=== PATIENT | female | born 1960 | race Caucasian/White ===

== ENCOUNTER 2023-06-17 07:56 | Outpatient (OUT) | payer OTHER, SELFPAY ==
--- NOTE | 2023-06-17 08:25 | MM_ITS ---
Patient: JOCELYNE MATOS Exam Date: 06/17/2023 : 1960 Gender:F Ordering : DR Naif Stone . Admission #: [id number] Family : Order #: [id number] CLICK HERE TO VIEW EXAM RADIOLOGY REPORT PROCEDURE: MM TOMOSYNTHESIS SCREENING BI COMPARISON: MG MAMM SCREEN ZARI W CAD, 01/16/2020. MG MAMM SCREEN 3D ZARI CAD, 06/16/2022. INDICATIONS: Screening Calculator Name NCI Breast Cancer Risk Assessment Tool 5 Year Breast Cancer Risk 1.60% Lifetime Breast Cancer Risk 7.50% Personal Breast Cancer No Personal Ovarian Cancer No Treatments Excision Family Cancers None LOCATION: [facility] BREAST COMPOSITION: Scattered areas fibroglandular density. FINDINGS: DIAGNOSTIC CATEGORY 1--NEGATIVE. NO CHANGE FROM COMPARISON ASSESSMENT. Scattered benign-appearing calcifications are present. RIGHT BREAST: No significant suspicious finding. LEFT BREAST: No significant suspicious finding. RECOMMENDATIONS: ROUTINE MAMMOGRAM AND CLINICAL EVALUATION IN 12 MONTHS. PLEASE NOTE: A NORMAL MAMMOGRAM DOES NOT EXCLUDE THE POSSIBILITY OF BREAST CANCER. A CLINICALLY SUSPICIOUS PALPABLE LUMP SHOULD BE BIOPSIED. Dictated by: Jw Gaona MD on 06/17/2023 at 10:09 Approved by: Jw Gaona MD on 06/17/2023 at 10:10
== END 2023-06-17 07:57 | disposition home or self-care (01) ==
LOC: MAMMO 07:59
PROVIDERS: PCP Family Medicine; Visit Provider Family Medicine
DX: Z12.31 Encounter for screening mammogram for malignant neoplasm of breast (principal)
CPT/HCPCS: 77063; 77067

== ENCOUNTER 2023-08-07 06:35 | Outpatient (OUT) | payer OTHER, SELFPAY ==
[2023-08-07 07:09] LABS: Basophils Absolute Auto 0.1 10^3/uL (0.0-0.1); Basophils Percent Auto 1.7 % (0.2-2.0); Eosinophils Absolute Auto 0.3 10^3/uL (0.0-0.7); Eosinophils Percent Auto 7.6 % (0.9-7.0); Hematocrit 40.6 % (36.0-48.0); Hemoglobin 13.9 g/dL (12.0-16.0); Immature Granulocytes Abs Auto 0.01 10^3/uL (0.00-0.03); Immature Granulocytes Pct Auto 0.2 % (0.0-0.5); Lymphocytes Absolute Auto 1.9 10^3/uL (1.2-3.8); Lymphocytes Percent Auto 44.1 % (20.5-60.0); Mean Corpuscular HGB Conc 34.2 g/dL (29.9-35.2); Mean Corpuscular Hemoglobin 30.4 pg (26.7-34.0); Mean Corpuscular Volume 88.8 fL (81.0-99.0); Mean Platelet Volume 9.3 fL (9.5-13.5); Monocytes Absolute Auto 0.4 10^3/uL (0.3-0.8); Neutrophils Absolute Auto 1.5 10^3/uL (1.4-6.5); Neutrophils Percent Auto 36.4 % (43.0-75.0); Platelet Count 222 10^3/uL (150-450); Red Blood Count 4.57 10^6/uL (4.20-5.40); Red Cell Distribution Width 12.6 % (11.0-15.0); White Blood Count 4.2 10^3/uL (4.0-11.0)
[2023-08-07 07:14] LABS: Estimated Average Glucose 100 mg/dL; Glycohemoglobin A1C 5.1 % (4.5-6.2)
[2023-08-07 07:57] LABS: Alanine Aminotransferase 24 U/L (14-59); Albumin Globulin Ratio 1.1; Alkaline Phosphatase 91 U/L (46-116); Anion Gap 10.1; Aspartate Amino Transferase 19 U/L (15-37); BUN Creatinine Ratio 22.1; Bilirubin Total 0.5 mg/dL (0.2-1.0); Calcium 9.2 mg/dL (8.5-10.1); Chloride 102 mmol/L (98-107); Chol HDL Ratio 2.7; Cholesterol 208 mg/dL (<=200); Estimated GFR (African America >60 (>=60); Estimated GFR (Non-African Ame >60 (>=60); Free T3 2.56 pg/mL (2.18-3.98); Globulin 3.8 g/dL; Glucose 90 mg/dL (74-106); HDL Cholesterol 76 mg/dL (40-60); Potassium 4.1 mmol/L (3.5-5.1); Sodium 134 mmol/L (136-145); Thyroid Stimulating Hormone 0.863 uIU/mL (0.358-3.740); Total Protein 7.8 g/dL (6.4-8.2); Triglycerides 70 mg/dL (<=150)
[2023-08-07 08:04] LABS: Free T4 1.16 ng/dL (0.76-1.46)
== END 2023-08-07 06:36 | disposition home or self-care (01) ==
LOC: LAB 06:37
PROVIDERS: PCP Family Medicine; Visit Provider Family Medicine
DX: Z00.00 Encounter for general adult medical examination without abnormal findings (principal); Z79.899 Other long term (current) drug therapy; R73.9 Hyperglycemia, unspecified; R53.83 Other fatigue
CPT/HCPCS: 36415; 80053; 80061; 83036; 84439; 84443; 84481; 85025

== ENCOUNTER 2023-10-28 07:19 | Outpatient (OUT) | payer OTHER, SELFPAY ==
--- NOTE | 2023-10-28 | XR_ITS ---
The [address] [address] Patient Name: JOCELYNE MATOS MRN: [id number] date: 1960 Sex: F Assigned Patient Location: [facility] Current Patient Location: [facility] Accession/Order Number: [id number] Exam Date: 10/28/2023 07:35 Report Date: 10/28/2023 08:04 At the request of: PADDY HER Procedure: XR hip RT 2V w/ pelvis EXAM: AP of the pelvis and right hip HISTORY: . M25.551; Right hip pain . COMPARISON: None. TECHNIQUE: 3 views FINDINGS: Bony pelvis is intact. No fracture or bony destructive process is noted. Surgical clips are noted overlying the sacrum. No fracture or dislocation of the right hip is noted. Joint spaces well-maintained. Surrounding soft tissues are unremarkable. XR/XR hip RT 2V w/ pelvis IMPRESSION: 1. Negative AP of the pelvis. 2. Negative right hip. Electronically authenticated by: WALDO CABAN Date: 10/28/2023 08:04
== END 2023-10-28 07:20 | disposition home or self-care (01) ==
LOC: LAB 07:22 → RAD 07:25
PROVIDERS: PCP Family Medicine; Visit Provider Family Medicine
DX: R35.0 Frequency of micturition (principal); M25.551 Pain in right hip
CPT/HCPCS: 73502

== ENCOUNTER 2023-11-12 11:07 | Outpatient (REF) | payer OTHER, SELFPAY ==
[2023-11-12 11:39] LABS: SARS-CoV-2 Ag NEGATIVE (NEGATIVE)
[2023-11-12 16:11] LABS: SARS-CoV-2 NAA NOT DETECTED (NOT DETECTE)
== END 2023-11-12 11:08 | disposition home or self-care (01) ==
LOC: LAB 11:07
PROVIDERS: PCP Family Medicine; Visit Provider Family Medicine
DX: Z20.822 Contact with and (suspected) exposure to COVID-19 (principal)
CPT/HCPCS: 87635; 87811

== ENCOUNTER 2023-12-04 08:45 | Outpatient (OUT) | payer OTHER, SELFPAY ==
--- NOTE | 2023-12-04 08:49 | XR_ITS ---
The [address] [address] Patient Name: JOCELYNE MATOS MRN: [id number] date: 1960 Sex: F Assigned Patient Location: [facility] Current Patient Location: [facility] Accession/Order Number: [id number] Exam Date: 12/04/2023 08:58 Report Date: 12/04/2023 09:17 At the request of: PADDY HER Procedure: XR chest 2V EXAM: XR chest 2V HISTORY: Cough R05.9 COMPARISON: None. TECHNIQUE: PA and lateral views of the chest. FINDINGS: The cardiomediastinal silhouette is normal. Patchy airspace disease of the left lower lobe. There is no pneumothorax. No pleural effusion is noted. The osseous structures are intact. XR/XR chest 2V IMPRESSION: Patchy airspace disease at the left lower lobe. Electronically authenticated by: YOEL ADLER Date: 12/04/2023 09:17
--- OUTSIDE RECORDS SUMMARY | 2023-12-04 09:08 | XMS_ITS | CCD ---
Author Name Unknown Address [address] [place] [id number] Organization [facility] Care Team Providers Care Web Application Dev Specialist Name Role Phone UNKNOWN, PROVIDER Admitting Unavailable UNKNOWN, PROVIDER Attending Unavailable PADDY STONE Referring Unavailable SHIRLEYY, PADDY Primary Care Unavailable Jose A Petersen Unavailable ARDEN ., DR THOMASON Primary Care Unavailable HOY ., DR THOMASON Consulting Unavailable HOY ., DR THOMASON Attending Unavailable HOY ., DR THOMASON Admitting Unavailable ARMONK, DR WALDO Perkins Consulting Unavailable HOY ., DR THOMASON Admitting Unavailable HOY ., DR THOMASON Primary Care Unavailable HOY ., DR THOMASON Consulting Unavailable HOY ., DR THOMASON Attending Unavailable HOY ., DR THOMASON Admitting Unavailable HOY ., DR THOMASON Primary Care Unavailable HOY ., DR THOMASON Consulting Unavailable HOY ., DR THOMASON Attending Unavailable HOY ., DR THOMASON Admitting Unavailable HOY ., DR THOMASON Primary Care Unavailable HOY ., DR THOMASON Consulting Unavailable HOY ., DR THOMASON Attending Unavailable HOY ., DR THOMASON Primary Care Unavailable SHANNON ., DR MORALES Admitting Unavailable SHANNON ., DR MORALES Consulting Unavailable SHANNON ., DR MORALES Attending Unavailable ZIEBER, DR OWEN Penn Consulting Unavailable SHANNON ., DR MORALES Attending Unavailable HOY ., DR THOMASON Primary Care Unavailable SHANNON ., DR MORALES Admitting Unavailable SHANNON ., DR MORALES Consulting Unavailable HOY ., DR THOMASON Admitting Unavailable HOY ., DR THOMASON Primary Care Unavailable HOY ., DR THOMASON Attending Unavailable ADRIANA LITTLE Admitting Unavailable ADRIANA LITTLE Attending Unavailable HOY ., DR THOMASON Primary Care Unavailable Allergies Allergy Classification Reported Allergen(s) Allergy Type Date of Onset Reaction(s) Facility (3 sources) Acetaminophen / oxyCODONE Drug Allergy 10-19-20 14 [facility] Repository (1 source) Sulfamethoxazole / Trimethoprim Drug Allergy 05-17-20 19 [facility] Repository (2 sources) Acetaminophen / oxyCODONE Drug Allergy Unknown [facility] [employer] Other (4 sources) Latex Propensity to adverse reactions Unknown [employer] Other (2 sources) Sulfacetamide / Sulfur Drug Allergy Unknown [employer] Other (2 sources) Sulfamethoxazole / Trimethoprim Drug Allergy Unknown [facility] [employer] Other (2 sources) Codeine Drug Allergy 10-12-20 14 [facility] Repository (2 sources) Latex Drug allergy (disorder) 10-25-20 14 [facility] Repository (1 source) Sulfamethoxazole / Trimethoprim Drug Allergy 01-08-20 17 [facility] Repository (1 source) Sulfonamides (Antibiotic) Drug allergy (disorder) 01-08-20 17 [facility] Repository Problems Active Problems Problem Classification Problem Date Documented Da te Episodic/Chronic Abdominal pain (1 source) Right lower quadrant pain; Translations: [RIGHT LOWER QUADRANT PAIN] Onset: 04-08-2023 Episodic Joint disorders and dislocations; trauma-related (3 sources) Internal derangement of right knee; Translations: [Unspecified internal derangement of right knee] Onset: 08-22-2021 Resolved: 08-22-2021 Chronic Osteoarthritis (3 sources) Arthritis of right knee; Translations: [Unilateral primary osteoarthritis, right knee] Onset: 08-22-2021 Resolved: 08-22-2021 Chronic Unclassified (3 sources) CONTACT W/AND (SUSP) EXPOS COVID-19; Translations: [CONTACT W/AND (SUSP) EXPOS COVID-19] Onset: 10-27-2022 Urinary tract infections (4 sources) Urinary tract infection, site not specified; Translations: [UTI SITE NOT SPECIFIED] Onset: 04-02-2023 Episodic Past or Other Problems Problem Classification Problem Date Documented Da te Episodic/Chronic Gastrointestinal hemorrhage (2 sources) Melena; Translations: [Melena] Episodic Immunizations and screening for infectious disease (1 source) Encounter for screening for human papillomavirus (HPV); Translations: [ENC SCREENING HUMAN PAPILLOMAVIRUS] Onset: 05-29-2022 Episodic Other gastrointestinal disorders (2 sources) Diarrhea; Translations: [Diarrhea, unspecified] Episodic Other gastrointestinal disorders (2 sources) Constipation; Translations: [Constipation, unspecified] Episodic Other non-traumatic joint disorders (1 source) Pain in right knee; Translations: [Acute pain of right knee M25.561] Onset: 08-22-2021 Resolved: 08-22-2021 Episodic Other screening for suspected conditions (not mental disorders or infectious disease) (8 sources) Encounter for screening mammogram for malignant neoplasm of breast; Translations: [Encounter for screening for malignant neoplasm of cervix] Onset: 05-27-2022 Episodic Other upper respiratory infections (1 source) Acute recurrent frontal sinusitis; Translations: [ACUTE RECURRENT FRONTAL SINUSITIS] Onset: 10-27-2022 Episodic Unclassified (1 source) CONTACT W/AND (SUSP) EXPOS COVID-19; Translations: [CONTACT W/AND (SUSP) EXPOS COVID-19] Onset: 10-22-2022 Results Test Name Value Interpretation Reference Range Facility CREATININEon 04-02-2023 Creatinine [Mass/Vol] 0.80 mg/dL Normal 0.55-1.02 [facility] Comment on above: Performed By: #### L IPID, CMP, T7, TSH #### [facility] [address] [place] [address] Dr. Nga Ribeiro EGFR-AF LAO >60 Normal >=60 [place] Comment on above: Performed By: #### L IPID, CMP, T7, TSH #### [facility] [address] [address] [address] Nga Ribeiro EGFR-NON AF LAO >60 Normal >=60 [facility] Comment on above: Performed By: #### L IPID, CMP, T7, TSH #### [facility] [address] ABD/PELV W CONon 04-02-20 CT ABD/PELV W CON EXAMINATION: CT ABD/PELV W CON, 04/02/2023 7:53 AM EDT HISTORY: Urinary tract infectious disease , pelvic pressure, right lower quadrant pain COMPARISON: None. TECHNIQUE: CT scan of the abdomen and pelvis was performed with IV contrast. CT dose reduction technique was used, including Automated Exposure Control. FINDINGS: LUNG BASES: No visible pulmonary or pleural disease. LIVER: No enlargement, atrophy, abnormal density, or significant focal lesion. BILIARY: Surgical clips from cholecystectomy PANCREAS: No lesion, fluid collection, ductal dilatation, or atrophy. SPLEEN: No enlargement or focal lesion. ADRENALS: No mass or enlargement. KIDNEYS: No mass, obstruction, or calcification. BOWEL/MESENTERY: Moderate amount of stool in the colon. Overall nonobstructive bowel gas pattern. AORTA/VASCULAR: No aortic aneurysm or dissection. Mild atherosclerosis RETROPERITONEUM: No mass or adenopathy. LYMPH NODES: No adenopathy. URINARY BLADDER: No visible focal wall thickening, lesion, or calculus. PELVIC ORGANS: Hysterectomy ABDOMINAL WALL: No mass or hernia. BONES: No bony lesion or fracture. OTHER: Negative. IMPRESSION: No acute intraperitoneal abnormality Moderate amount of stool Electronically authenticated by: WALDO BUSTAMANTE Date: 2023-04-02 15:30 Normal [facility] OCC BLD IMMUNO SCREENon OCCULT BLOOD Negative Normal NEGATIVE [facility] Comment on above: Performed By: #### O BSCRN #### [facility] [address] [place] [address] Dr. Nga Ribeiro INSULINon 10-31-2022 Insulin 8.8 uIU/mL Normal 2.6-24.9 [facility] Comment on above: Performed By: #### L IPID, CMP, T7, TSH #### [facility] [address] [place] [address] Dr. Nga Ribeiro CBC AUTO DIFFon 10-30-2022 BASO # 0.1 103/ul Normal 0.0-0.1 [facility] Comment on above: Performed By: #### L IPID, CMP, T7, TSH #### [facility] [address] [place] [address] Dr. Nga Ribeiro Basophils/100 WBC (Bld) 1.4 % Normal 0.2-2.0 [facility] Comment on above: Performed By: #### L IPID, CMP, T7, TSH #### [facility] [address] [place] [address] Dr. Nga Ribeiro EO # 0.3 103/ul Normal 0.0-0.7 [facility] Comment on above: Performed By: #### L IPID, CMP, T7, TSH #### [facility] [address] [address] [address] Nga Ribeiro Eosinophils/100 WBC (Bld) 6.3 % Normal 0.9-7.0 [facility] Comment on above: Performed By: #### L IPID, CMP, T7, TSH #### [facility] [address] [address] [address] Nga Ribeiro Erythrocyte distribution width (RBC) [Ratio] 12.7 % Normal 11.0-15.0 [facility] Comment on above: Performed By: #### L IPID, CMP, T7, TSH #### [facility] [address] [address] [address] Nga Ribeiro Hematocrit (Bld) [Volume fraction] 40.4 % Normal 36.0-48.0 [facility] Comment on above: Performed By: #### L IPID, CMP, T7, TSH #### [facility] [address] [place] [address] Dr. Nga Ribeiro Hemoglobin (Bld) [Mass/Vol] 13.8 g/dL Normal 12.0-16.0 [facility] Comment on above: Performed By: #### L IPID, CMP, T7, TSH #### [facility] [address] [address] [address] Nga Ribeiro IG # 0.01 10e3/ul Normal 0.00-0.03 [facility] Comment on above: Performed By: #### L IPID, CMP, T7, TSH #### [facility] [address] [address] [address] Nga Ribeiro IG % 0.2 % Normal 0.0-0.5 [facility] Comment on above: Performed By: #### L IPID, CMP, T7, TSH #### [facility] [address] [place] [address] Dr. Nga Ribeiro LYMPH # 1.9 103/ul Normal 1.2-3.8 [facility] Comment on above: Performed By: #### L IPID, CMP, T7, TSH #### [facility] [address] [place] [address] Dr. Nga Ribeiro Lymphocytes/100 WBC (Bld) 46.4 % Normal 20.5-60.0 [facility] Comment on above: Performed By: #### L IPID, CMP, T7, TSH #### [facility] [address] [place] [address] Dr. Nga Ribeiro MANUAL DIFF REQ NO Normal [facility] Comment on above: Performed By: #### L IPID, CMP, T7, TSH #### [facility] [address] [place] [address] Dr. Nga Ribeiro MCH (RBC) [Entitic mass] 30.6 pg Normal 26.7-34.0 [facility] Comment on above: Performed By: #### L IPID, CMP, T7, TSH #### [facility] [address] [place] [address] Dr. Nga Ribeiro MCHC (RBC) [Mass/Vol] 34.2 g/dL Normal 29.9-35.2 [facility] Comment on above: Performed By: #### L IPID, CMP, T7, TSH #### [facility] [address] [place] [address] Dr. Nga Ribeiro MCV (RBC) [Entitic vol] 89.6 fL Normal 81.0-99.0 [facility] Comment on above: Performed By: #### L IPID, CMP, T7, TSH #### [facility] [address] [place] [address] Dr. Nga Ribeiro MONO # 0.4 103/ul Normal 0.3-0.8 [facility] Comment on above: Performed By: #### L IPID, CMP, T7, TSH #### [facility] [address] [place] [address] Dr. Nga Ribeiro Monocytes/100 WBC (Bld) 9.1 % Normal 1.7-12.0 [facility] Comment on above: Performed By: #### L IPID, CMP, T7, TSH #### [facility] [address] [place] [address] Dr. Nga Ribeiro NEUT # 1.5 103/ul Normal 1.4-6.5 [facility] Comment on above: Performed By: #### L IPID, CMP, T7, TSH #### [facility] [address] [place] [address] Dr. Nga Ribeiro Neutrophils/100 WBC (Bld) 36.6 % Critically low 43.0-75.0 [facility] Comment on above: Performed By: #### L IPID, CMP, T7, TSH #### [facility] [address] [place] [address] Dr. Nga Ribeiro Platelet mean volume (Bld) [Entitic vol] 9.2 fL Critically low 9.5-13.5 [facility] Comment on above: Performed By: #### L IPID, CMP, T7, TSH #### [facility] [address] [place] [address] Dr. Nga Ribeiro PLT 194 103/ul Normal 150-450 [facility] Comment on above: Performed By: #### L IPID, CMP, T7, TSH #### [facility] [address] [place] [address] Dr. Nga Ribeiro RBC 4.51 106/ul Normal 4.20-5.40 [facility] Comment on above: Performed By: #### L IPID, CMP, T7, TSH #### [facility] [address] [place] [address] Dr. Nga Ribeiro WBC 4.2 103/ul Normal 4.0-11.0 [facility] Comment on above: Performed By: #### L IPID, CMP, T7, TSH #### [facility] [address] [place] [address] Dr. Nga Ribeiro FREE THYROXINE INDEX T7on FTI 2.66 Normal 1.30-4.50 [facility] Comment on above: Performed By: #### L IPID, CMP, T7, TSH #### [facility] [address] [place] [address] Dr. Nga Ribeiro T3U 36.0 % Normal 30.0-39.0 [facility] Comment on above: Performed By: #### L IPID, CMP, T7, TSH #### [facility] [address] [address] [address] Nga Ribeiro T4 [Mass/Vol] 7.40 ug/dL Normal 4.80-13.90 [facility] Comment on above: Performed By: #### L IPID, CMP, T7, TSH #### [facility] [address] [address] [address] Nga Ribeiro GLYCOHEMOGLOBIN A1Con 2021 ADA RECOMMENDATION SEE BELOW Normal [facility] Comment on above: Result Comment: ADA RECOMMENDED LIMIT 4.0 - 6.0 ADA THERAPEUTIC TARGET < 7.0 ACTION SUGGESTED > 7.0 Performed By: #### A 1C #### [facility] [address] [address] [address] Nga Ribeiro Glucose [Mass/Vol] 94 mg/dL Normal [facility] [place] [facility] Comment on above: Performed By: #### A 1C #### [facility] [address] [address] [address] Nga Ribeiro HbA1c (Bld) [Mass fraction] 4.9 % Normal 4.5-6.2 [facility] Comment on above: Performed By: #### A 1C #### [facility] [address] [address] [address] Nga Ribeiro IRONon 10-30-2022 Iron [Mass/Vol] 119.0 ug/dL Normal 50.0-170.0 [place] Comment on above: Performed By: #### I CHARISMA #### [facility] [address] [address] [address] Nga Ribeiro LIPID PROFILEon 10-30-2022 CHOL-HDL RATIO NORM SEE BELOW Normal [facility] Comment on above: Result Comment: 3.3 - 4.4 LOW RISK 4.4 - 7.1 AVERAGE RISK 7.1 - 11.0 MODERATE RISK >11.0 HIGH RISK Performed By: #### L IPID, CMP, T7, TSH #### [facility] [address] [address] [address] Nga Ribeiro Cholesterol [Mass/Vol] 201 mg/dL Critically high <=200 [facility] Comment on above: Performed By: #### L IPID, CMP, T7, TSH #### [facility] [address] [address] [address] Nga Ribeiro Cholesterol in HDL [Mass/Vol] 78 mg/dL Critically high 40-60 [facility] Comment on above: Performed By: #### L IPID, CMP, T7, TSH #### [facility] [address] [address] [address] Nga Ribeiro Cholesterol in LDL [Mass/Vol] 108.8 mg/dL Normal [facility] Comment on above: Performed By: #### L IPID, CMP, T7, TSH #### [facility] [address] [address] [address] Nga Ribeiro Cholesterol.total/Ch olesterol in HDL [Mass ratio] 2.6 {ratio} Normal [facility] Comment on above: Performed By: #### L IPID, CMP, T7, TSH #### [facility] [address] [address] [address] Nga Ribeiro HDL NORMAL > or = 60 mg/dl - LO W CARDIOVASCULAR RISK <40 mg/dl - HIGH CARDIOVASCULAR RISK Normal [facility] Comment on above: Performed By: #### L IPID, CMP, T7, TSH #### [facility] [address] [address] [address] Nga Ribeiro LDL CALC NORMAL SEE BELOW Normal [facility] Comment on above: Result Comment: <100 mg/dl OPTIMAL 100 - 129 mg/dl NEAR OR ABOVE OPTIMAL 130 - 159 mg/dl BORDERLINE HIGH 160 - 189 mg/dl HIGH >190 mg/dl VERY HIGH Performed By: #### L IPID, CMP, T7, TSH #### [facility] [address] [address] [address] Nga Ribeiro Triglyceride [Mass/Vol] 71 mg/dL Normal <=150 [facility] Comment on above: Performed By: #### L IPID, CMP, T7, TSH #### [facility] [address] [address] [address] Nga Ribeiro VLDL CALC 14.2 mg/dL Normal [facility] Comment on above: Performed By: #### L IPID, CMP, T7, TSH #### [facility] [address] [address] [address] Nga Ribeiro PROF 14(COMP METB)on 022 Albumin [Mass/Vol] 3.8 g/dL Normal 3.4-5.0 [facility] Comment on above: Performed By: #### L IPID, CMP, T7, TSH #### [facility] [address] [address] [address] Nga Riebiro Albumin/Globulin [Mass ratio] 1.1 {ratio} Normal [facility] Comment on above: Performed By: #### L IPID, CMP, T7, TSH #### [facility] [address] [place] [address] Dr. Nga Ribeiro ALP [Catalytic activity/Vol] 91 U/L Normal 46-116 [facility] Comment on above: Performed By: #### L IPID, CMP, T7, TSH #### [facility] [address] [place] [address] Dr. Nga Ribeiro ALT [Catalytic activity/Vol] 19 U/L Normal 14-59 [facility] Comment on above: Performed By: #### L IPID, CMP, T7, TSH #### [facility] [address] [address] [address] Nga Ribeiro Anion gap [Moles/Vol] 9.2 mmol/L Normal [facility] Comment on above: Performed By: #### L IPID, CMP, T7, TSH #### [facility] [address] [address] [address] Nga Ribeiro AST [Catalytic activity/Vol] 18 U/L Normal 15-37 [facility] Comment on above: Performed By: #### L IPID, CMP, T7, TSH #### [facility] [address] [place] [address] Dr. Nga Ribeiro Bilirubin [Mass/Vol] 0.5 mg/dL Normal 0.2-1.0 [facility] Comment on above: Performed By: #### L IPID, CMP, T7, TSH #### [facility] [address] [place] [address] Dr. Nga Ribeiro Calcium [Mass/Vol] 9.5 mg/dL Normal 8.5-10.1 [facility] Comment on above: Performed By: #### L IPID, CMP, T7, TSH #### [facility] [address] [place] [address] Dr. Nga Ribeiro Chloride [Moles/Vol] 105 mmol/L Normal 98-107 [facility] Comment on above: Performed By: #### L IPID, CMP, T7, TSH #### [facility] [address] [place] [address] Dr. Nga Ribeiro CO2 [Moles/Vol] 29.5 mmol/L Normal 21.0-32.0 [place] Comment on above: Performed By: #### L IPID, CMP, T7, TSH #### [facility] [address] [place] [address] Dr. Nga Ribeiro Creatinine [Mass/Vol] 0.68 mg/dL Normal 0.55-1.02 [facility] Comment on above: Performed By: #### L IPID, CMP, T7, TSH #### [facility] [address] [place] [address] Dr. Nga Ribeiro EGFR-AF LAO >60 Normal >=60 [facility] Comment on above: Performed By: #### L IPID, CMP, T7, TSH #### [facility] [address] [place] [address] Dr. Nga Ribeiro EGFR-NON AF LAO >60 Normal >=60 [facility] Comment on above: Performed By: #### L IPID, CMP, T7, TSH #### [facility] [address] [place] [address] Dr. Nga Ribeiro Globulin (S) [Mass/Vol] 3.6 g/dL Normal [facility] Comment on above: Performed By: #### L IPID, CMP, T7, TSH #### [facility] [address] [address] [address] Nga Ribeiro Glucose [Mass/Vol] 100 mg/dL Normal 74-106 [facility] [place] [facility] Comment on above: Performed By: #### L IPID, CMP, T7, TSH #### [facility] [address] [place] [address] Dr. Nga Ribeiro Potassium [Moles/Vol] 4.7 mmol/L Normal 3.5-5.1 [facility] Comment on above: Performed By: #### L IPID, CMP, T7, TSH #### [facility] [address] [place] [address] Dr. Nga Ribeiro Protein [Mass/Vol] 7.4 g/dL Normal 6.4-8.2 [facility] [place] [facility] Comment on above: Performed By: #### L IPID, CMP, T7, TSH #### [facility] [address] [place] [address] Dr. Nga Ribeiro Sodium [Moles/Vol] 139 mmol/L Normal 136-145 [facility] [place] [facility] Comment on above: Performed By: #### L IPID, CMP, T7, TSH #### [facility] [address] [place] [address] Dr. Nga Ribeiro Urea nitrogen [Mass/Vol] 19.0 mg/dL Critically high 7.0-18.0 [facility] Comment on above: Performed By: #### L IPID, CMP, T7, TSH #### [facility] [address] [place] [address] Dr. Nga Ribeiro Urea nitrogen/Creatinine [Mass ratio] 27.9 mg/mg Normal [facility] Comment on above: Performed By: #### L IPID, CMP, T7, TSH #### [facility] [address] [place] [address] Dr. Nga Ribeiro TSHon 10-30-2022 TSH 0.871 uIU/mL Normal 0.358-3.740 [facility] Comment on above: Performed By: #### L IPID, CMP, T7, TSH #### [facility] [address] [place] [address] Dr. Nga Ribeiro Covid-19 PCR (CVDTB)on 10-01 SARS-CoV-2 (COVID-19) RNA VALENTINA+probe Ql (Unsp spec) Not detected Normal NOT DETECTED [facility] Comment on above: Result Comment: When diagnostic testing is negative, the possibility of a false negative should be considered in the context of a patient's recent exposures and the presence of clinical signs and symptoms consistent with SARS-CoV-2. This test is not yet approved or cleared by the [place] FDA. When there are no FDA-approved or cleared tests available, and other criteria are met, FDA can make tests available under an emergency access mechanism called an Emergency Use Authorization (EUA). The EUA for this test is supported by the Fire Extinguisher Repairer Inspector of Health and Human Service's declaration that circumstances exist to justify the emergency use of in vitro diagnostics for the detection and/or diagnosis of the virus that causes COVID-19. This EUA will remain in effect for the duration of the COVID-19 declaration justifying emergency of IVDs, unless it is terminated or revoked by the FDA (after which the test may no longer be used). Performed By: #### C VDTBH #### [facility] [address] [place] [address] Dr. Nga Ribeiro INFLUENZA A AND B AGon 10-22 INFLUANEGH SEE BELOW Normal [facility] Comment on above: Result Comment: Nega tive for Flu A protein angiten. Infection due to Flu A cannot be ruled out. Flu A angiten in the sample may be below the detection limit of the test. Performed By: #### L IPID, CMP, T7, TSH #### [facility] [address] [place] [address] Dr. Nga Ribeiro INFLUBNEG SEE BELOW Normal [facility] Comment on above: Result Comment: Nega tive for Flu B protein antigen. Infection due to Flu B cannot be ruled out. Flu B antigen in the sample may be below the detection limit of the test. Performed By: #### L IPID, CMP, T7, TSH #### [facility] [address] [place] [address] Dr. Nga Ribeiro INFLUENZA A AG Negative Normal NEGATIVE SEE COMMENT [facility] Comment on above: Performed By: #### L IPID, CMP, T7, TSH #### [facility] [address] [place], [place] [address] Dr. Nga Ribeiro INFLUENZA B AG Negative Normal NEGATIVE SEE COMMENT [facility] Comment on above: Performed By: #### L IPID, CMP, T7, TSH #### [facility] [address] [place], [place] [address] Dr. Nga Ribeiro INTERNAL CONTROLS Within Normal Limits Normal Wi thin Normal Limits [facility] Comment on above: Performed By: #### L IPID, CMP, T7, TSH #### [facility] [address] [place], [place] [address] Dr. Nga Ribeiro MRI Shoulder w/o Lefton 11-0 MRI Shoulder w/o Left HISTORY: Left shoulder pain with popping, possible lifting injury. TECHNIQUE: Routine non-contrast MRI of the left shoulder COMPARISON: Radiographs 09/16/2022. RESULT: Rotator Cuff Tendons: Mild to moderate tendinosis involving infraspinatus with reactive cystic change at the insertion, without tear. Mild tendinosis involving supraspinatus and subscapularis without tear. Teres minor appears intact. Long Head Biceps Tendon: Intact with appropriate location. Muscle: Muscle bulk and signal intensity are within normal limits. Labrum: Appears grossly intact. Bones and Marrow: No evidence of fracture or bone marrow replacing process. Glenohumeral Joint: Osteophytes without distinct measurable full-thickness chondral defect. No joint effusion. Acromioclavicular Joint: Mild to moderate degenerative changes with undersurface osteophytes. Downsloping of the acromion. Other: No other significant abnormality. IMPRESSION: Rotator cuff tendinosis without tear. Report reported and signed by Maulik Stewart on 10/02/2022 1335 Normal [facility] Supervisor Char House MG MAMM SCREEN 3D ZARI CADon 06-16-2022 MG MAMM SCREEN 3D ZARI CAD Patient: CONY MATOS Exam Date: 06/16/2022 : 1960 Gender:F Ordering : DR ANDREW ORTEGA . Admission #: [id number] Family : Order #: [id number] CLICK HERE TO VIEW EXAM RADIOLOGY REPORT PROCEDURE: MAMMOGRAM SCREENING 3D BILATERAL CAD COMPARISON: MG MAMM SCREEN ZARI W CAD, 11/01/2018. MG MAMM SCREEN ZARI W CAD, 07/17/2017. DIGITIZED_MAMMO, 12/29/2008. MG MAMM SCREEN ZARI W CAD, 01/16/2020. INDICATIONS: Screening mammography Calculator Name NCI Breast Cancer Risk Assessment Tool 5 Year Breast Cancer Risk 1.50% Lifetime Breast Cancer Risk 7.70% Personal Breast Cancer No Personal Ovarian Cancer No Treatments Excision Family Cancers None LOCATION: [facility] BREAST COMPOSITION: Scattered areas fibroglandular density. FINDINGS: DIAGNOSTIC CATEGORY 1--NEGATIVE. RIGHT BREAST: No significant suspicious finding. No significant change has occurred. LEFT BREAST: No significant suspicious finding. No significant change has occurred. RECOMMENDATIONS: ROUTINE MAMMOGRAM AND CLINICAL EVALUATION IN 12 MONTHS. PLEASE NOTE: A NORMAL MAMMOGRAM DOES NOT EXCLUDE THE POSSIBILITY OF BREAST CANCER. A CLINICALLY SUSPICIOUS PALPABLE LUMP SHOULD BE BIOPSIED. Dictated by: Owen Nixon M.D. on 06/16/2022 at 13:27 Approved by: Owen Nixon M.D. on 06/16/2022 at 13:28 Normal [facility] PAP ACOG PANEL 2: 30 to 65on 05-30-2022 . . Normal [facility] Comment on above: Result Comment: Perf ormed at: WB Performed By: #### L IPID, CMP, T7, TSH #### [facility] [address] [place] [address] [address] Nga Ribeiro Age Gdln ACOG Testing 30-65 Normal [facility] Comment on above: Performed By: #### L IPID, CMP, T7, TSH #### [facility] [address] [place], [place] [address] Dr. Nga Ribeiro DIAGNOSIS: Comment Normal [facility] Comment on above: Result Comment: UNSA TISFACTORY FOR EVALUATION. Performed at: WB Performed By: #### L IPID, CMP, T7, TSH #### [facility] [address] [place], [place] [address] Dr. Nga Ribeiro HPV Aptima Negative Normal Negative [facility] Comment on above: Result Comment: This nucleic acid amplification test detects fourteen high-risk HPV types (16,18,31,33,35,39,45,51,52,56,58,59,66,68) without differentiation. Performed at: =G Performed By: #### L IPID, CMP, T7, TSH #### [facility] [address] [place] [address] [address] Nga Ribeiro Methodology: Comment Normal [facility] Comment on above: Result Comment: This liquid based ThinPrep(R) pap test was screened with the use of an image guided system. Performed at: WB Performed By: #### L IPID, CMP, T7, TSH #### [facility] [address] [place] [address] [address] Nga Ribeiro Note: Comment Normal [facility] Comment on above: Result Comment: The Pap smear is a screening test designed to aid in the detection of premalignant and malignant conditions of the uterine cervix. It is not a diagnostic procedure and should not be used as the sole means of detecting cervical cancer. Both false-positive and false-negative reports do occur. . Performed at: WB Performed By: #### L IPID, CMP, T7, TSH #### [facility] [address] [place] [address] [address] Nga Ribeiro Performed by: Comment Normal [facility] Comment on above: Result Comment: Kolton Carpio, Wet End Tester (ASCP) Performed at: WB Performed By: #### L IPID, CMP, T7, TSH #### [facility] [address] [place] [address] [address] Nga Ribeiro QC reviewed by: Comment Normal [facility] Comment on above: Result Comment: Adore Sloan, Supervisory Wet End Tester (ASCP) Performed at: WB Performed By: #### L IPID, CMP, T7, TSH #### [facility] [address] [place] [address] [address] Nga Ribeiro Recommendation: Comment Normal [facility] Comment on above: Result Comment: Sugg est follow up as clinically appropriate. Performed at: WB Performed By: #### L IPID, CMP, T7, TSH #### [facility] [address] [place] [address] [address] Nga Ribeiro Specimen adequacy: Comment Normal [facility] [place] [facility] Comment on above: Result Comment: Spec imen processed and examined but unsatisfactory for evaluation of epithelial abnormality because of insufficient cellularity. Performed at: WB Performed By: #### L IPID, CMP, T7, TSH #### [facility] [address] [place] [address] [id number] [address]ga Ribeiro Coding Summary.on 12-30-2021 Coding Summary. CD:[id number] Gh 0bWw+PGhlYWQ+LR8LMLVnF 61vmCZriD7JW4rCPD8VCSD VEBFCGS0UZN7icKN4RXndM 2VybiAv GcuasFYgQQ84IUy4GUQ5rO doYHjdlD7gzVVpJ5w1WuVd FQ48zG14TKtaJLPpWtV1Md ZpbjsgbWFy D1egMmDhuSQtEku+PHRhYm xlIHdpZHRoPScxMDAlJyBz zKwjAV9nGo4hWKIvUJJzuV xhcHNlOiBj m5hbYSCzEHcpWP8gmTzwZ8 AcjAZ5KGUoh5l3Zi91nMW+ QHPcBGQ8pRcyWHqwg668Yj Nka2dfNNA3 zFBaPHqwESZ1S20oi1T5RJ LwZZBaEHY8mXN6dC4nhHmf jlfxT3KhlAGkIxH1OMH6cD HqpY1vfXfy qczedX4oEqb+Q33CHL2FHX LAJM0LXlt0P6XlNsggoUV+ TG14JSLcCS88dJDuqXOaz8 svcUl1WoOa MGVuSKB2xHciUZwdc7GmJR AuE88roDUug0U0IMKhgEpf nNMuWfQxgRQ3pT3eGOryyu wua5jwewrp Yengj2xbcc84aI39Q38cKM tiQELtWMO6MBFrEEOqnLxe ey5dgR1aXq3+ARinf4dxd6 duzVf2XgXy SMSifmBnvIxzZQU6g7ZlUs 41W7DbhOdcc4UnCbs6iv88 vLWwt7Z1xMP1RRgoHQYuiH 5aQOeeIsZ5 IAYcJcUlrK37hKBoIKrqYb 7avDntuXffLO9qUPOuumzp VNHngZ1qGDVvySWucDfiJU 4wNTBpbjtm v667BxDjOJX0SXYdoGBxF3 VrvZ4wMmYrBVAvEICpU2Xa eTAiYOouQ684TLhvFeY3FN IxvkYqA3Nv KJIgzWueZbA5c8L2Jy4Xq4 RmzvyvZHX5ORwpSWOyDyDa TdHmBzM9G2ToUvu1WJUyrT yrJL3xR0Jy WKVxsockrnzerVU9GRNsHC SmcQ93gIAfZZscAf0yj0L3 o939PBLkSDXmzJ74Pe9anN ogMTBwdCBU gD4yusyyq8dzivbzKvSdWM XaMUc5OSy5UIBqsIvuRnSq RMF2DwL1YII0zLUehQ5ifQ ulmpqmbA8c Oyc+M30laL3aIAY4FIU6lq nsIEFkloEgSV61QJ84P7Xd PjwvdGFibGU+PGRpdiBzdH bzGF9vHzMv e7xbs0QmTOvbV7NzMCVqVE joXcn5DIHoBCT4eCD3dE0h GWPsRSbzj7I8dSZ8Y4Corv Ukfm9xf1yc MWHtHOjnR60puVPux8U5QO SkzFS9BLNrnAyyBpWcnD88 Oyc+CLUvlPqbw6DwDpwbg2 cmd0zalBm1 MnDjVCGiwvBqpFlxOCQ7l6 BfMl74N91dEXzaPHGeYJXd VQOeFFWcbImiag3eiG5bBd 8+PGNvbCB3 qFQ7qZ7eOFZdTdC9CVtuO7 12BhZbzHUwHeeuh3pro7oi cNo1HaCwYAVzfwApaExbPW S6r2VhIv77 B15hHWgzLORdAIVdZKNsZK BtfUskwt5suR3qUv1+PC9j p7rwch28hM74qTB+PHRkIH R3bTgyENkw WTLryA3eLYggMfY5IPOuPt LoeR67qDPxJZahXm1qwBji pCwjZE4dZZSwkpmlx611Xl Eqa9muILKx hLJdQDvxQMY7O73hx1C5AA MtRRInYZE0dHJ4pO3hbMwo bjogbGVmdDsgdmVydGljYW npOUjaD453 IHRvcDsnPlBhdGllbnQgTm XzWHg0Y4RcZlp2YDDcqWty TV8vvPFmBLyjRz1noReayF flFO5hWCVm phbkj006FbMcv7fuGTXdfR DjSVetAPB3T47yc5Z5EFKw PEXvDGW9nIN2aD8azRjftv ogbGVmdDsg deZmcOzcIXywCEkeB231TN RvcDsnPkJpcnRoIERhdGU6 EJ65KX19tCHqu7E7vZL4K7 BhZGRpbmct xrzolRB3CBQpJDQyiS65Hd 0uuOroIp5eLPLrJNI8EKUr nZHrB2AllI0nScZoCRRqPU SvT2SklUFc NWrgY249BOljIrN8HPEanl SgP8PtKGSthKleNiF6j6I9 Oi2NS7E2LX33LW83uZDih1 X8eJG6I9Sh SFUfkdoakgstrPJ3PMJhXV OpbB20Gb7agOnyXi7yNDBb NOZ5BZBfyDIhS8ZizP2zJj AjMDAwMDAw Q7EiqJGlYZqnB092LRfiTg D6BEAxjxCdF4YxJXWnzMtx ZqV2b3A1Wx6LMDg7TF23HC 37nFIgo1L5 yAY5F4WhVUVuwaagguicfB L0UAVpZOQhlU87Mc9plDso Ht9sZYZwCFK4YUDleNJpO0 HonU9nXkBf BDWcURAkR5OjfMRlYEeeO5 85EKxuWcX5IZXqexYpA1Ku PRXegZzpMcM9b4R4Uu1HAW EjNP80QBL5 rJP2VQ19NM12I9QcOylelY FibGU+PHRhYmxlIHdpZHRo STycRAWbKeZjkEhfDQ3aBe 9yZGVyLWNv dPwwqMFbCvKno6baUKDyQD pwHT4rdIvmX8GkxQD0ANFo w1g5Ij58U75bV9IktMT+PG CgxPJ4pXI8 uI1sMkEyUeX6ZExkR882Ze XxsEWaUbmae6sta8rciCa9 QgI6UTOxxdQghLtrERD3w2 StHc21I09d IHdpZHRoPSIxNSUiIHZhbG cqoy4qaZ3oIo2+PGNvbCB3 jVZ9oS1zHzNkTqU9TTuzH2 49InRvcCIv Msqmy8due3ecbVe8FsWxHK NsbyRmrItoSKM6x6UvTx04 T0DbbOmck6HmPxa7zo84zW Wxh9O7eHL2 T0NnTOFndkrhjMGfkUbdHS 9xOBMsaadiYHFapO5uPECz Y3q4AqClJsW9NDgkY0Yehb O2AQUvtVQr ALxtIQG0J04lj8J9YAQbRQ OcZBU7rPC6iF2jmUgzygji bGVmdDsgdmVydGljYWwtYW utZ920VWNg fFqpOHTlrM9mBANweMAyzW bdOG1dWEFrxcltZo7FLSKO UiwgQkVUVFkgTDwvdGQ+PH FjVNK2lZho JIqyBGExqT8wYEYbY7r0Hb QnZyF5CQxdO9SyWZAmqtpi Ci01wT5wNfAqTdF8WYgdT1 WjyyJ2MQVr jJExKBrgCLV3K01lo7B1CY WqBVLdQUY0yOE7mO0zmVol bjogbGVmdDsgdmVydGljYW xfRVysW579 ZHVmlHexOfCaZeF5HvC2Ra R8I9CaYyp3RGJcnYrgEF8u lOTwUSmxDn8ckXblcAvhKN 4wNTBpbjtw GNRstP2hEHJjjRRilXrvQU 4yKJQathwzd656PmMaBFJ3 ZYFdrCQzP2LemV1cYzGcWP CnCDVfO3Av qWZtDVrgU183YHxtAuP4ZR FomyRzS3LjARXttZmaLyC8 e8T7Fy24YKGTDRVwmmutkC Q+PHRkIHN0 tZkgSBwcTVHueP3iLTApR8 x2ApLzIjR7LDeuR2NbOVWj qmyjDe50oF7qUiXgKsG4SM aqC5EddtW2 QNAoeTXfZKfxBQR5C82dn0 I3BMPvSGLvTEB6bLE0mM0h bGlnbjogbGVmdDsgdmVydG ljYWwtYWxp T627QHYpoPhbTwMckMUmRT wvdGQ+CRHkSGE2pVvoNImh JWKjqL5tKTBxT7w5VqOhLp Y5SWxmK3Ss LJBtxccmGt51oL0qPiDgTe V8PCovN0RtwbJ6MWGqpORj IMktHSP9D95ue2E6MDFyLS VpQKI3gES1 mB6paUalocurxYNmtTrgqk AuiRroBYsmEJpbF948QMQv cKtpUa64cDErwOapttV9M4 RkPjwvdHI+ QH20FZMyCU11rQOqvQKln4 kpfYp8HzTuJBOaYMJ3xYek BDimq8YgSIUsK60smGGov0 W7GXJbbSsk nKQpQjLemHG4mW8rFHsfqv utz4lxrkyfThqnz3enns01 fO22Q87qWLfpRQZuGYJfMG UiIHZhbGln ge8nsG6bSz2+XJQdzJW3yV M6fO8bSiRzTaR4FYpiK683 OmRjvLXdApktw2flv1bzfD z2OxRfEFDm lpFuxDnqXHI4d5JoAx12W8 9sIHdpZHRoPSIyMCUiIHZh tZrcjg5ksC5gSm0+PC9jb2 fzee27eN20 dHI+LJNgKHP6dLhfYQkiTH LzuE9wIZypPaT8XZNkXgWn tS75lXDxHPahEz3sgLwkaO opTR8rLTSm tmlom205IlWxv2fkVYIcwS QpCUzoPEQ5Q90zo0E5INAt YNPuNOZ5qET6kB2pzRggfi ogbGVmdDsg raIjkYdbHFrtTIfyQ555HE ZszAgaAuWhpUDzD8qdsuYT DJ8uBheviXH+DYYqXUJ5yV xlPSdwYWRk cT8wTWNrJ6v2BkWuGbN8KN guD8GbcsO2GYVpwVXiYTKi gCHAoA8dcygyo1sjaicjKs AwMDAwMDt0 OIw4RKEcqXdnZwMcNFT6Jk V8DKI4qBXekX3wnMkxpnmb iT5iZnp+RklOOjwvdGQ+PH IsVSK6dSjn STsbSTSmaE8wMQStG8s3Lo OcFcZ9AYyjQ2EunqN2GXBb gDYsQGQwvPNTrR9ajcelz7 xvcjogIzAw RRMbOOs4YUb6HAJfbCgxDb YbXOQ8BqU4LYJ3yIFuiG0b jTszhxyxpO7mVsq+TVJOOj wvdGQ+PHRk CTC5qYooCKuzAQTzbD6vKQ TaZ5u1AbJmVrE0IZvuF7Kr otJ8XESwrSSfPQMwvXNPwU 1ifcpbc0vl lfpuNjLnNVPwHYp6ENd6KA UpaAecNuSeTCH1BgK8MWC1 cAMezR9ulTvoqvyosO7fYb c+FCW6QVU2 WF63AK17B0EaMdhajQYptS U+PHRhYmxlIHdpZHRoPScx KTBtEePtjUnoRE5tRb7lVG VyLWNvbGxh cHNl (more content not included)... Normal [facility] Coding Summary.on 12-27-2021 Coding Summary. CD:[id number] Gh 0bWw+PGhlYWQ+YK5XXYVqY 13rbPFdgS0LI3lXJA6HBND YXBCSDY0VBP0xrEV1DNtaU 2VybiAv IxaiiRPvJQ64CTd8SEP0qM ofBNzqwP8zlTQxH4c3HzTe NV98yY49WJaoYSEkQgC2Hf ZpbjsgbWFy X9lvUdVapYXoHhp+PHRhYm xlIHdpZHRoPScxMDAlJyBz bQrxHZ3aCa4pYIXnIEVfvL xhcHNlOiBj o7psOKIzKUmbEJ0saHlfO5 GrhYT6FIIah6q3Sb91qAA+ LXOoGVT1dRrjBKoek234Qw Dec5jjTDH3 cUQdHYubGLD2E99sl0A1AQ UpHANbVCO3zXY1rV5qvIxe rxujS9IivRGgNtY9GBK9wE DxiG1haIii oziduL7vKtd+W52DBZ0SFH OVSW0OBhd1V5VrSxyqrBW+ TO46ORGyNF22gXEboMMjx2 ppxNc7UjAn UQXrCGG8wXtsYEghm1TtFT PwX59apIWmf7F5TVXqsRvi aMDoUyNjsYH2vK4oXFvmfl upr2gkvgcx Wkrgn1hezg71aB40Q68uJG myLJOlWAA1CSZrUWOweCrs il6gjC9lAq3+TAhnm0oey2 aohYj9QbWa URGvkrRlwSwvRHX6u6RuYj 03R6HqvTbgs0VzWrk6qs19 vEAjt6L4qNB1QBytIQKpeS 2dXUbzXbP7 HUPxPuMpsA33lZFoVGpaTe 1rfWtcpGweCM9yRUAfkcex EKVrjW2aWYXluWEqrJmbUK 4wNTBpbjtm z937IhRaRNI7YENmrCBdK0 TyxU8yMrCfDWJgEYYgC1Zo oXRfUShwD784FMirDwF4OQ WderEnJ5Wc SESkiJkyOlW6v3D0Ww6Ew8 MwkpriXYM2GYooDSVhQbQ6 LkJnZbJ2A9BpEuz2VDErqS vlMY4tY8Fn VXVldesmexherKJ5MNBlWP CvuE56tFOsEQihPu6na0A2 c591BGOwTKZryN46Wa0fyJ ogMTBwdCBU fS7eupebv7ytgelwYbRlTQ AzDPi3GJn3TAQvwMpnPmOz YXV6PmQ7CAR0yTExkI0kvJ fadbwsdY5k Oyc+K34kiZ0iYWR1IEN6eq lnEIVsgxGzMB70EU10O1Fm PjwvdGFibGU+PGRpdiBzdH mjUG5zWsIr g3jaf9PhREdrP0XhQORcCF fbHxt0BNHjRBR9hFF5fH6q PHRhGWxzj0G1tAN3G2Nguy Oclp4cb7dh EVOuMKerH74qlEDfg5I5ZI VmyLF9VMDxaVhtEtVbtT66 Oyc+WZZalJzvz8TtEqmtg2 uvj3qwyRa2 QzVdGRDdjdCmxJoiDKR0n5 TqBn00S28pAOjcPBPtWKZo HBDaMMLxnPjhpq6asF8dMo 8+PGNvbCB3 fTC2zE5eTRSfPtR5FGnaG8 19ZlYtgWUyIeswy5thy0ax lMu8LkOfNZZnvmIxeDbcAK E1u5UvSg14 H40yDBdhZIGgRBIoKXKhTF UpmTgajd9lnS2qCi5+PC9j j2fapn05kP58jVJ+PHRkIH S1xKavNLut WDLcjD3mVBgmGwG2TNVmDl MzwP29cDFdMRmdHi5fnTou oNmyRR6lIOSjbujcs639Lk Usl3nlLNFd hIPuUIiyRMQ6S17ok9S8RW LkRWEuOCP6yJF7kP7bsZsb bjogbGVmdDsgdmVydGljYW fhLRtsK151 IHRvcDsnPlBhdGllbnQgTm FxJNa6M3IqMcb1TVNvxWkc YR4boOKjBVmvFc7krMgcdJ tnWY5xPBDo spmrc091OzEjs4ceDZQuuS DsSNhgVOQ6R22br3Z6QDFk QFAmLIB7zFJ3wD6ucNtucx ogbGVmdDsg eiImeAnsRVdvITemR145JR RvcDsnPkJpcnRoIERhdGU6 CE99IW68cVZgs0S0fKW5A2 BhZGRpbmct zmkmpXG0TXMhJQYtsW01Ec 5tmLstEu3uDFLbWEL9AMIy eCEcA9KyxC5uZqRnVZWkCQ QnK8MmnJOd AQygQ983MYhtRsS3VFNbcp CuH7IgHKIyuUysEfL2k7V0 Mp8ZW3P9WN43JY11uWJkw9 V0mVX4B9Ui KVTuhsidozjcvSX2IIYlJA VxrH02Qr4eqIznWg3tVFDd QDG8QZQbiWHvT7YbiB4rXl AjMDAwMDAw X8NjxATmQFcnO777GGitOj B3VXBynkSzE3YqQAAakNab MgK1k9B1Oc7TWNt2AI46UP 98nTLsc0K7 iEA7C6UgOMNsrcykabzqrV E1YAKbSPTzjK25Tv2rkNat Jr5iVABnANZ1CJClvRDqQ1 TtoH8fWeDf VFAzOKCgD2CtkEWoYKgoG1 59DDrpOcS4LCJyrvYfV3Xu ZAAzmStuNrJ7y6Z9Uw2OBW WgES35GHW1 pTP8KG87PH22T1NiNyszqU FibGU+PHRhYmxlIHdpZHRo GSroYEWqVcDszQvkEF3hVb 9yZGVyLWNv xPvzgDGjObWnv0sbSVMeDP ojGD9lsDgrU4UeuOZ6YSJi h1a3Cq96S10uH6WkzOT+PG PbuEH2uTC7 cH2sDxAjVbT0FJjoN318Lk BplCOeYnezs8utl0oafEt5 TwA6KDEpjiDafAyaKXC4b9 UzJy95U12j IHdpZHRoPSIxNSUiIHZhbG ybsu4cuS2nNm0+PGNvbCB3 xEM9uX3yVjAhRiJ2NZylX0 49InRvcCIv Edfpt9xcj3jntAx6DpJoAA KphmFrfHgyCQL2f1WxUc96 Z7NjwQvpn9OyUij1tj42bG Kjw9K2uBT7 E0YpKVKgrraftIRgnNauMH 8fSYCobqogHWAjfC7sKYEo E8k3JnDgVnW7RPotE3Lcav S3CGJisLOf OYumSLA5I87bm1W9SOZjIG TmKQT7xZJ3aO8ebQwfzqzu bGVmdDsgdmVydGljYWwtYW phW824QVNd qVtrVXBmcP6qGBYbbNJwaK miZV7kEJHprfotEw6JGOZQ UiwgQkVUVFkgTDwvdGQ+PH BaPRO5rOcb EGggDUMytK3kZLSiL9k9Tm LlXnY8UZeiI2GeDRYhqdiu No84hJ4fCcVfIzP8VDayT0 YtuvL6FDYp aSHvWOujTLA7Q63tq6Y7YR WjCSHoHBE6iOF7lJ6xnCum bjogbGVmdDsgdmVydGljYW dxZOqtU340 DHNezLmySqBiSoF7DfR2Mo N9Z5QyZht5KGFbfKglPK7k vGNrGKabEf4uvTjngTrjOU 4wNTBpbjtw HBNbwM1dWZIrkLAujTzxQA 7eNCQloagec734MhItNBI0 YWDxfAXsE1MdcQ4lZmQhLZ NsKNJeT3Yw nHIdLMabS707CHnzUjC7YB FuxjPfS3SzKWFqlAooTkH4 i9W6Ku42LYFMTKVmemyadG Q+PHRkIHN0 fDsaGVipSWGaoH2tPVWtK6 u0XqIrFiF8AWziF5YpTQEe hrglNw96uM2hMhRxRpI8BJ dfF5JnfiP9 INJsrNRpUDguEPG2A26bz3 N8DLYaNTGaZIQ6hNR2uB1p bGlnbjogbGVmdDsgdmVydG ljYWwtYWxp C524BRQsrYtzZdZqvYYtZE wvdGQ+ZMZdXXY6yInaDMuw YZBjrS1xPHDfH7v5EhNwLo E4UUibS7Mr FSQkthdzTk53eN6tAaGqVx D1BSgeA7GjmcH2COHkpZTq OQeaESV3F03ix9N8GMLeFY YkSTP7zAJ0 nV2qiSarvtxezKGamMlwrp LgcWleFBxmQTavG030WKOb aRutPr33fTQeeZygolV2E9 RkPjwvdHI+ NU53OGBrQV35pHIhqMTzm7 isiNj0JeMrBVJzAGJ1oLah UNgyo6DqTLAqP87gbCOnw9 R9YJGrgWko rYMrNcPhmBH5uC3mVHiopn cji9fzzyaqJftkg5utab98 zN85S97hELghPPFnRWFmXA UiIHZhbGln hq3qwT5fSm3+KUYuwKH6yP G1kO9gEoEdEmU5ICweZ397 PhQrhNIgUfjbi7uqu9nrvO n6SoRvTAEn fxPfjAcnDOX9c3ZiBd34C7 9sIHdpZHRoPSIyMCUiIHZh xWcygp1ygC3hZb8+PC9jb2 zvuw63fQ23 dHI+TTWgLND7oZqqHWobPB EpdN1fEUxySyQ8UCEhOsGy yU14xWFpWMbaEw8uyZtgsL weZN3vOLBn iqliz423YlAee7qhKLFvtW LaAEtmJYQ0E98kp0V7KOYb USCcROV7sZR8wJ7cmUakol ogbGVmdDsg vfZuyGveAVjxABewC414TE XqeMnfJkJujVWjJ3oqcrIM VM7zKnozlWK+IXDaXPY4oQ xlPSdwYWRk lN7iDVHdS4y9ZdXqDwC9VA qcE5NfczH1VGPciLOcIVRx xUKRfX0pmzcfb3xmxdruAm AwMDAwMDt0 APv3MJOndPswJqZvMOM5Eo H3GOO6fLWjxK0otBgiukim gV6sXef+RklOOjwvdGQ+PH OiYIQ4dOcr GZzcBUUzpX5uWGGkA2u4Zp EeAaE1PQffK3CyipX0FEBk rMUhNMVatCWQqC6lsecvi7 xvcjogIzAw JZUqTHe2GIl6HYWacImfQz ZoQGM9AtL8WWH6mSHpvX5v eAaglzxloK2nMvx+TVJOOj wvdGQ+PHRk NUJ4vEsfAYkgACLvzO2eWY FaQ5s8StSbVtR8LUqdH0Ad bcK9XXOorHEjWHIwzIIHfX 1hvucjh0so srfrBmKfRXUtZPj6WKu0YQ NkeXvdPaXnTZB2HnF3VOE8 yJRsoZ9ejMpuadwgeU5lZv c+MDH3SMI7 IO44SP51P9CeTaafrPSmwY U+PHRhYmxlIHdpZHRoPScx RYThGgSuqGhzSY4oKf9bGM VyLWNvbGxh cHNl (more content not included)... Normal [facility] Consent for Treatmenton 12-01 Consent for Treatment [id number]#[id number] 0CD:127 Normal [facility] BMPon 12-19-2021 Anion gap [Moles/Vol] 14 mmol/L Normal -16 [facility] Comment on above: Performed By: #### 1 [id number], [id number], [id number] #### [facility] [address] [place] [address] Calcium [Mass/Vol] 9.6 mg/dL Normal 8.9-11.1 [facility] Comment on above: Performed By: #### 1 [id number], 6846383, 0563907 #### [facility] [address] [place] [address] Chloride [Moles/Vol] 105 mmol/L Normal 101-111 [facility] Comment on above: Performed By: #### 1 [id number], 8704735, 7114427 #### [facility] [address] [place] [address] CO2 [Moles/Vol] 27 mmol/L Normal 21-31 [facility] Comment on above: Performed By: #### 1 [id number], 2112880, 1482463 #### [facility] [address] [place] [address] Creatinine [Mass/Vol] 0.9 mg/dL Normal 0.5-1.3 [facility] Comment on above: Performed By: #### 1 [id number], 7076028, 6018482 #### [facility] [address] [place] [address] Glucose [Mass/Vol] 95 mg/dL Normal 55-199 [facility] Comment on above: Result Comment: If t his glucose result represents a fasting glucose, interpretation should refer to the following reference range: 55-99 mg/dL Performed By: #### 1 [id number], 3427223, 3136811 #### [facility] [address] [place] [address] Potassium [Moles/Vol] 4.3 mmol/L Normal 3.5-5.3 [facility] Comment on above: Performed By: #### 1 7464329, 7692475, 2660565 #### [facility] [address] [place] [address] Sodium [Moles/Vol] 142 mmol/L Normal 135-145 [facility] Comment on above: Performed By: #### 1 7269426, 7993615, 0987995 #### [facility] [address] [place] [address] Urea nitrogen [Mass/Vol] 23 mg/dL High 5-21 [facility] Comment on above: Performed By: #### 1 2365596, 1082848, 4875970 #### [facility] [address] [place] [address] Urea nitrogen/Creatinine [Mass ratio] 26 No Units High 09-18 [facility] Comment on above: Performed By: #### 1 8503043, 1853997, 6155507 #### [facility] [address] [place] [address] CBC w/Indiceson 12-19-2021 Erythrocyte distribution width (RBC) [Ratio] 13.3 % Normal 10.9-14.2 [facility] Comment on above: Performed By: #### 1 [id number], 6366587, 4900130 #### [facility] [address] [place] [address] Hematocrit (Bld) [Volume fraction] 38.6 % Normal 34.0-46.0 [facility] Comment on above: Performed By: #### 1 1309814, 8538433, 2605914 #### [facility] [address] [place] [address] Hemoglobin (Bld) [Mass/Vol] 13.6 g/dL Normal 12.0-16.0 [facility] Comment on above: Performed By: #### 1 4341912, 8335157, 4388737 #### [facility] [address] [place] [address] MCH (RBC) [Entitic mass] 31.1 pg Normal 27.0-34.0 [facility] Comment on above: Performed By: #### 1 8386468, 7789659, 7608639 #### [facility] [address] [place] [address] MCHC (RBC) [Mass/Vol] 35.2 g/dL Normal 31.4-36.0 [facility] Comment on above: Performed By: #### 1 4737262, 3678597, 8383606 #### [facility] [address] [place] [address] MCV (RBC) [Entitic vol] 88.2 fL Normal 80.0-100.0 [facility] Comment on above: Performed By: #### 1 [id number], 9239575, 0467985 #### [facility] [address] [place] [address] Platelet mean volume (Bld) [Entitic vol] 8.2 fL Normal 6.4-10.8 [facility] Comment on above: Performed By: #### 1 5603056, 8213596, 5853865 #### [facility] [address] [place] [address] Platelets (Bld) [#/Vol] 231.0 E9/L Normal 150.0-500.0 [facility] Comment on above: Performed By: #### 1 8591489, 6650532, 7280896 #### [facility] [address] [place] [address] RBC (Bld) [#/Vol] 4.4 E12/L Normal 4.3-5.9 [facility] Comment on above: Performed By: #### 1 0985455, 2145721, 2744376 #### [facility] [address] [place] [address] WBC corrected for nucl RBC Auto (Bld) [#/Vol] 4.5 E9/L Normal 4.0-11.0 [facility] Comment on above: Performed By: #### 1 3787702, 5167803, 3530319 #### [facility] [address] [place] [address] Consent for Treatmenton 12-01 Consent for Treatment [id number] 0CD:127 Normal [facility] Physician Orderon 12-19-2021 Physician Order [id number]. 00CD:127 Normal [facility] XR Chest 2 Viewson XR Chest 2 Views Exam Date/Time: 12/19/2021 09:14 EST Reason for Exam: PRE SURGERY TESTING Report IMPRESSION: THERE ARE NO ACUTE CARDIOPULMONARY CHANGES. CLINICAL HISTORY: PRE SURGERY TESTING COMPARISON: NONE. FINDINGS: The cardiomediastinal silhouette is unremarkable. The lungs are free of infiltrates effusions or consolidations. There is mild hyperinflation of both lungs which may be secondary to chronic emphysema. The bones and soft tissues are within normal limits. FINAL REPORT Dictated: 12/19/2021 10:54 am Prosper Diop MD, V. Signed (Electronic Signature): 12/19/2021 10:54 am Signed by: Prosper Diop MD, V. Transcribed by: DELICIA Technologist: RH Normal [facility] eGFRon 12-19-2021 GFR/1.73 sq M.predicted among blacks MDRD (S/P/Bld) [Vol rate/Area] mL/min/{1.73_m2} Normal >=59 [facility] Comment on above: Order Comment: Order added by Discern Expert. Result Comment: eGFR is race adjusted. AA=. Performed By: #### 1 [id number], 9268483, 3637596 #### [facility] [address] [place] [address] GFR/1.73 sq M.predicted among non-blacks MDRD (S/P/Bld) [Vol rate/Area] mL/min/{1.73_m2} Normal >=59 [facility] Comment on above: Order Comment: Order added by Discern Expert. Result Comment: Track Template Maker kary kidney disease could be indicated at eGFR's of less than 60 mL/min/1.73m2. Kidney failure is indicated at less than 15 mL/min/1.73m2. Performed By: #### 1 [id number], 8625809, 6296981 #### [facility] [address] [place] [address] Physician Orderon 12-06-2021 Physician Order [id number]#1. 00CD:127 Normal [facility] RAD - MISCon 11-04-2021 RAD - MISC [id number]#1. 00CD:127 Normal [facility] MR knee RT wo conon 08-30-20 MR knee RT wo [facility] [place] [id number] MRI Report Signed Patient: Cony Matos MR#: [id number] 19 : 1960 Acct:[id number] Age/Sex: 60 / F ADM Date: 08/30/21 Loc: [facility] Room: Type: [facility] CLI Attending Dr: Jose A Petersen MD Ordering Provider: Jose A Petersen MD Date of Service: 08/30/21 MR/MR knee RT wo con: Internal derangement of right knee Copies to: Jose A Petersen MD MR knee RT wo con 08/30/2021 9:31 AM SIGNS AND SYMPTOMS: Right knee pain distal to patella with instability. PROTOCOL: Multiplanar multisequence MR images of the right knee were obtained without IV contrast COMPARISON: Radiographs from 08/22/2021 FINDINGS: Fluid: There is no joint effusion. Medial compartment: Medial meniscus: There is a linear T2 hyperintense focus in the posterior horn extending towards the body suggesting a nondisplaced tear.. Medial collateral ligament: Intact. Medial femoral condyle cartilage: There is partial thickness chondromalacia. Medial tibial plateau cartilage: There is partial thickness chondral malacia. Lateral compartment: Lateral meniscus: Intact. Lateral collateral ligament: Intact. Lateral femoral condyle cartilage: There is mild partial thickness chondromalacia.. Lateral tibial plateau cartilage: Intact. Posterolateral corner: Popliteus tendon: Intact. Popliteofibular ligament: Intact. Proximal tibiofibular joint: Intact. Anterior compartment: Alignment: Normal. Quadriceps tendon: Intact. Patellar tendon: Intact. Retinaculum: Medial intact. Lateral intact. Patellar cartilage: There is partial thickness chondromalacia of the patellar apex.. Trochlea: Intact. . Plica: None. Hoffa fat pad: Normal. Intercondylar compartment: Anterior cruciate ligament: Intact. Posterior cruciate ligament: Intact. Bones (other than subarticular marrow): There is edema along the lateral aspect of the lateral tibial plateau extending anteriorly. There is corresponding osteophyte formation along the lateral and anterior aspect of the lateral tibial plateau. There is also edema along the distal aspect of the iliotibial band. There is fluid along the distal iliotibial bursa. Muscles: Normal. Vessels: Normal. Nerves: Normal. MR/MR knee RT wo con IMPRESSION: There is edema along the lateral aspect of the lateral tibial plateau extending anteriorly. There is corresponding osteophyte formation along the lateral and anterior aspect of the lateral tibial plateau. There is also edema along the distal aspect of the iliotibial band. There is fluid along the distal iliotibial bursa. There is a linear T2 hyperintense focus in the posterior horn extending towards the body suggesting a nondisplaced tear. There is partial thickness chondromalacia in the weightbearing and patellofemoral joint spaces, as above. Impression dictated by: Jamarcus Prado M.D.08/30/2021 11:36 AM Dictation Location: [facility] Transcribed By: [facility] 08/30/21 1136 Dictated By: Jamarcus Prado II, MD 08/30/21 1120 Signed By: 08/30/21 1136 [facility] XR knee RT 2Von 08-22-2021 XR knee RT 2V [facility] Main [place] [address] [place] [address] XRay Report Signed Patient: Cony Matos MR#: [id number] 19 : 1960 Acct:[id number] Age/Sex: 60 / F ADM Date: 08/22/21 Loc: [facility] [place] Room: Type: [facility] Attending Dr: Jose A Petersen MD Ordering Provider: Jose A Petersen MD Date of Service: 08/22/21 XR/XR knee RT 2V: Acute pain of right knee Copies to: Jose A Petersen MD XR knee RT 2V 08/22/2021 7:50 AM SIGNS AND SYMPTOMS: Right knee pain along the lateral aspect PROTOCOL: Frontal and lateral graphs of the right knee COMPARISON: None FINDINGS: There is mild narrowing of the weightbearing joint space. There is no evidence of acute displaced fracture. No significant joint effusion or soft tissue swelling. The patellofemoral joint is preserv ed. XR/XR knee RT 2V IMPRESSION: No evidence of fracture or dislocation. Mild degenerative changes are noted in the weightbearing joint spaces. Impression dictated by: Jamarcus Prado M.D.08/22/2021 1:26 PM Dictation Location: [place] [address] Transcribed By: [facility] 08/22/21 1326 Dictated By: Jamarcus Prado II, MD 08/22/21 1325 Signed By: 08/22/21 1326 [facility] Cardiovascular Lab Reporton 05-17-2019 Cardiovascular Lab Report [facility] Patient Name: [facility] [place] Ceasar MR #: [id number] Department of Physician: Rico James M.D. Division of Service Date: 05/17/2019 Cardiology Birthdate: 1960 Adult Cardiovascular Room #: [address] [place] [address] Cardiovascular Laboratory Report INDICATION: The patient is a 58-year-old woman,who was evaluated in Cardiology Clinic because of symptoms of shortness of breath on exertion of recent onset and an abnormal stress test. Because of that, she was referred for cardiac catheterization. PROCEDURES: 1. Access into right internal jugular vein under ultrasound guidance. 2. Right heart catheterization. 3. Bilateral selective coronary angiography from the right radial access. METHOD: Procedure was explained to patient with risks and benefits. She signed informed consent. She was brought to veterinary laboratory technician in a fasting state. The right neck area was prepped and draped in usual fashion. Using ultrasound guidance and micropuncture technique, the right internal jugular vein was accessed. A 6-Guamanian x 11 cm sheath was placed. A 6-Guamanian Irvin catheter was used for right heart catheterization with measurement of pressures and calculation of cardiac output using the estimated Sherman method. Irvin catheter was removed. Jamar's test was favorable on the right. Access in the right radial artery was obtained using micropuncture technique, a 5-Guamanian 11 cm Hydrophilic sheath was advanced. Verapamil was given through the sheath and heparin was administered intravenously. Bilateral selective coronary angiography was then performed using a 6-Guamanian JL5 diagnostic catheter. This catheter was removed. The procedure was concluded. The access sheath and the radial artery were removed and a TR band applied for hemostasis. The access sheath in the internal jugular vein was removed and manual compression applied for hemostasis. She was transferred to the cardiovascular recovery area. She will be observed for 3 hours and then discharged to home. TOTAL FLUORO TIME: 1.59 minutes. TOTAL AIR KERMA: 156 mGy. TOTAL CONTRAST VOLUME: 25 mL. HEMODYNAMICS: RA 4, RV 37/93, 5 PA 32/10, mean 18, pulmonary capillary wedge pressure 9, AO 135/75, mean 100. Cardiac output 5.28. Cardiac index 2.87. PA sat 75%. AO sat 99%. CORONARY ANGIOGRAPHY: This is a right dominant circulation. Left main arises from left coronary cusp. It bifurcates into left anterior descending and circumflex vessels. Left main is angiographically normal. Left anterior descending is angiographically normal. Circumflex vessel is angiographically normal. Right coronary artery. This arises from the right coronary cusp. It is a large and dominant vessel. It is angiographically normal. SUMMARY OF FINDINGS: 1. Normal coronary angiogram. 2. Normal filling pressures. 3. Normal pulmonary arterial pressures. 4. Preserved cardiac output and cardiac index. RECOMMENDATIONS: Risk factor control and follow up in Cardiology Clinic. Electronically Signed by: Rico James M.D. 05/21/2019 10:45 A Rico James M.D. Date Dict: 05/17/2019/12:19 P/Rico James M.D. Date Trans: 05/17/2019 01:54 P/timoteo [id number] cc: Paddy Stone M.D. [address], [facility] [address] [place] [facility] Vital Signs Date Time Vital Sign Value Performing Clinician Farrah arthur 08-22-2021 10:00-0400 Body height 167.64 cm Jose A Petersen Other [facility] Other 08-22-2021 10:00-0400 Body mass index (BMI) [Ratio] 25.01 kg/m2 Jose A Petersen Other [facility] Other 08-22-2021 10:00-0400 Body weight 70.31 kg Jose A Petersen Other [facility] Other Encounters Encounter Date Encounter Type Care Provider Facility Start: 04-02-2023 End: 04-03-[address] PADDY STONE . Facility:[facility] Start: 11-08-2022 Encounter for genera l adult medical examination without abnormal findings DR PADDY STONE . [facility] Start: 11-03-2022 End: 11-03-[address] PADDY STONE . Facility:[facility] Start: 11-03-2022 End: 11-03-2022 Encounter for general adult medical examination without abnormal findings DR PADDY STONE . Facility:[facility] Start: 10-30-2022 End: 10-31-[address] PADDY STONE . Facility:[facility] Start: 10-22-2022 End: 10-22-[address] PADDY STONE . Facility:[facility] Start: 10-20-[address] PADDY STONE . Facili ty:[facility] Start: 07-23-2022 ambulatory ADRIANA LITTLE Facility: [facility] Start: 06-16-2022 End: 06-17-[address] PADDY STONE . Facility:[facility] Start: 05-27-2022 End: 05-27-[address] ANDREW ORTEGA . Facility:[facility] Start: 10-03-2021 End: 10-03-2021 ambulatory Jose A Petersen Other [facility] Other Start: 10-03-2021 Telephone encounter Jose A Petersen [facility] Start: 08-22-2021 Office outpatient ne w 45 minutes Jose A Petersen [facility] Start: 05-17-2019 End: 05-18-2019 Patient encounter procedure PROVIDER UNKNOWN Facility:[facility] Payers Date Payer Category Payer Unknown [id number] [id number] 1960 Unknown [id number] 2.16.84 [id number] 1960 Unknown [id number] 2.16.84 [id number] 1960 Unknown [id number] 2.16.84 [id number] 1960 Unknown [id number] 2.16.84 [id number] 1960 Unknown [id number] 2.16.84 [id number] 1960 Unknown [id number] 2.16.84 [id number] 1960 Unknown [id number] 2.16.84 [id number] 1960 Unknown [id number] 2.16.84 [id number] 1958 Self-pay 1958 Unknown [id number] Social History Date Type Detail Facility Sex Assigned At [facility] Other Evaluation note 08-22-2021 Note Date & Type Note Facility 08-22-2021 Evaluation note Encounter Date Diagnosis Assessment Notes Jul, Acute pain of right knee (ICD-10 - M25.561) Jul, Arthritis of right knee (ICD-10 - M17.11) Jul, Internal derangement of right knee (ICD-10 - M23.91) I am concerned about a potential meniscal tear that will not improve with conservative and non-operative treatments. Continued active use of the knee can lead to worsening of the condition and lead to irreversible damage to the knee. An MRI of the knee will be necessary to identify the source of pain and plan potential surgical treatment. [facility] Other Evaluation note Note Date & Type Note Facility Evaluation note No Information [employer] Other History general Narrative - Reported Note Date & Type Note Facility History general Narrative - Reported Type Surgical History C section x3 Surgical History hysterectomy Surgical History gall bladder Hospitalization History see above [facility] Other Summary Purpose Family History No Family History Records FoundNo Family History Records FoundNo Family History Records FoundNo Family History Records FoundNo Family History Records Found Advance Directives No Advanced Directives Records FoundNo Advanced Directives Records FoundNo Advanced Directives Records FoundNo Advanced Directives Records FoundNo Advanced Directives Records Found Additional Source Comments INFORMATION SOURCE (unrecogn ized section and content) DATE CREATED AUTHOR 07/12/2019 [facility] DATE CREATED AUTHOR AUTHOR'S ORGANIZ ATION 01/16/2022 [facility] DATE CREATED AUTHOR AUTHOR'S ORGANIZ ATION 02/21/2022 [facility] DATE CREATED AUTHOR AUTHOR'S ORGANIZ ATION 10/03/2022 [facility] d[facility] Specialist DATE CREATED AUTHOR AUTHOR'S ORGANIZ ATION 04/09/2023 [facility] REASON FOR VISIT (unrecogniz ed section and content) Right Knee PainNo Informatio n FOR RECORDS PERTAINING TO PATIENTS WHO ARE OR HAVE BEEN ENROLLED IN A CHEMICAL DEPENDENCY/SUBSTANCEABUSE PROGRAM, SOME INFORMATION MAY BE OMITTED. This clinical summary was aggregated from multiple sources. Caution should be exercised in using it in the provision of clinical care. This summary normalizes information from multiple sources, and as a consequence, information in this document may materially change the coding, format and clinical context of patient data. In addition, data may be omitted in some cases. CLINICAL DECISIONS SHOULD BE BASED ON THE PRIMARY CLINICAL RECORDS. [facility] [facility]. provides no warranty or guarantee of the accuracy or completeness of information in this document.
== END 2023-12-04 08:46 | disposition home or self-care (01) ==
LOC: RAD 08:46
PROVIDERS: PCP Family Medicine; Visit Provider Family Medicine
DX: R05.9 Cough, unspecified (principal)
CPT/HCPCS: 71046

== ENCOUNTER 2023-12-14 06:44 | Outpatient (OUT) | payer OTHER, SELFPAY ==
--- OUTSIDE RECORDS SUMMARY | 2023-12-14 06:48 | XMS_ITS | CCD ---
Author Name Unknown Address [address] [place] [id number] Organization [facility] Care Team Providers Care Agricultural Technician Name Role Phone UNKNOWN, PROVIDER Admitting Unavailable UNKNOWN, PROVIDER Attending Unavailable PADDY STONE Referring Unavailable SHIRLEYY, PADDY Primary Care Unavailable Jose A Petersen Unavailable ARDEN ., DR THOMASON Primary Care Unavailable HOY ., DR THOMASON Consulting Unavailable HOY ., DR THOMASON Attending Unavailable HOY ., DR THOMASON Admitting Unavailable WATERFLOW, DR WALDO Perkins Consulting Unavailable HOY ., [...] / oxyCODONE Drug Allergy 10-19-20 14 [facility] Repository (1 source) Sulfamethoxazole / Trimethoprim Drug Allergy 05-17-20 19 [facility] Repository (2 sources) Acetaminophen / oxyCODONE Drug Allergy Unknown [facility] [employer] Other (4 sources) Latex Propensity to adverse reactions Unknown [facility] Other (2 sources) Sulfacetamide / Sulfur Drug Allergy Unknown [facility] Other (2 sources) Sulfamethoxazole / Trimethoprim Drug Allergy Unknown [facility] [employer] Other (2 sources) Codeine Drug Allergy 10-12-20 14 [facility] Repository (2 sources) Latex Drug allergy (disorder) 10-25-20 14 [facility] Repository (1 source) Sulfamethoxazole / Trimethoprim Drug Allergy 01-08-20 17 [facility] Repository (1 source) Sulfonamides (Antibiotic) Drug allergy (disorder) 01-08-20 17 [facility] Repository Problems Active Problems Problem Classification [...] 04-02-2023 Creatinine [Mass/Vol] 0.80 mg/dL Normal 0.55-1.02 [facility] Comment on above: Performed By: #### L IPID, CMP, T7, TSH #### [facility] [address] [place] [address] Dr. Nga Ribeiro EGFR-AF IRANIAN >60 Normal >=60 [facility] Comment on above: Performed By: #### L IPID, CMP, T7, TSH #### [facility] [address] [address] [address] Nga Ribeiro EGFR-NON AF IRANIAN >60 Normal >=60 [facility] Comment on above: Performed By: #### L IPID, CMP, T7, TSH #### [facility] [address] ABD/PELV W CONon [...] WALDO BUSTAMANTE Date: 2023-04-02 15:30 Normal [facility] OCC BLD IMMUNO SCREENon OCCULT BLOOD Negative Normal NEGATIVE [facility] Comment on above: Performed By: #### O BSCRN #### [facility] [address] [place] [address] Dr. Nga Ribeiro INSULINon 10-31-2022 Insulin 8.8 uIU/mL Normal 2.6-24.9 [facility] Comment on above: Performed By: #### L IPID, CMP, T7, TSH #### [facility] [address] [place] [address] Dr. Nga Ribeiro CBC AUTO DIFFon 10-30-2022 BASO # 0.1 103/ul Normal 0.0-0.1 [facility] Comment on above: Performed By: #### L IPID, CMP, T7, TSH #### [facility] [address] [place] [address] Dr. Nga Ribeiro Basophils/100 WBC (Bld) 1.4 % Normal 0.2-2.0 [facility] Comment on above: Performed By: #### L IPID, CMP, T7, TSH #### [facility] [address] [place] [address] Dr. Nga Ribeiro EO # 0.3 103/ul Normal 0.0-0.7 [facility] Comment on above: Performed By: #### L IPID, CMP, T7, TSH #### [facility] [address] [address] [address] Nga Ribeiro Eosinophils/100 WBC (Bld) 6.3 % Normal 0.9-7.0 [facility] Comment on above: Performed By: #### L IPID, CMP, T7, TSH #### [facility] [address] [address] [address] Nga Ribeiro Erythrocyte distribution width (RBC) [Ratio] 12.7 % Normal 11.0-15.0 [facility] Comment on above: Performed By: #### L IPID, CMP, T7, TSH #### [facility] [address] [address] [address] Nga Ribeiro Hematocrit (Bld) [Volume fraction] 40.4 % Normal 36.0-48.0 [facility] Comment on above: Performed By: #### L IPID, CMP, T7, TSH #### [facility] [address] [place] [address] Dr. Nga Ribeiro Hemoglobin (Bld) [Mass/Vol] 13.8 g/dL Normal 12.0-16.0 [facility] Comment on above: Performed By: #### L IPID, CMP, T7, TSH #### [facility] [address] [address] [address] Nga Ribeiro IG # 0.01 10e3/ul Normal 0.00-0.03 [facility] Comment on above: Performed By: #### L IPID, CMP, T7, TSH #### [facility] [address] [address] [address] Nga Ribeiro IG % 0.2 % Normal 0.0-0.5 [facility] Comment on above: Performed By: #### L IPID, CMP, T7, TSH #### [facility] [address] [place] [address] Dr. Nga Ribeiro LYMPH # 1.9 103/ul Normal 1.2-3.8 [facility] Comment on above: Performed By: #### L IPID, CMP, T7, TSH #### [facility] [address] [place] [address] Dr. Nga Ribeiro Lymphocytes/100 WBC (Bld) 46.4 % Normal 20.5-60.0 [facility] Comment on above: Performed By: #### L IPID, CMP, T7, TSH #### [facility] [address] [place] [address] Dr. Nga Ribeiro MANUAL DIFF REQ NO Normal [facility] Comment on above: Performed By: #### L IPID, CMP, T7, TSH #### [facility] [address] [place] [address] Dr. Nga Ribeiro MCH (RBC) [Entitic mass] 30.6 pg Normal 26.7-34.0 [facility] Comment on above: Performed By: #### L IPID, CMP, T7, TSH #### [facility] [address] [place] [address] Dr. Nga Ribeiro MCHC (RBC) [Mass/Vol] 34.2 g/dL Normal 29.9-35.2 [facility] Comment on above: Performed By: #### L IPID, CMP, T7, TSH #### [facility] [address] [place] [address] Dr. Nga Ribeiro MCV (RBC) [Entitic vol] 89.6 fL Normal 81.0-99.0 [facility] Comment on above: Performed By: #### L IPID, CMP, T7, TSH #### [facility] [address] [place] [address] Dr. Nga Ribeiro MONO # 0.4 103/ul Normal 0.3-0.8 [facility] Comment on above: Performed By: #### L IPID, CMP, T7, TSH #### [facility] [address] [place] [address] Dr. Nga Ribeiro Monocytes/100 WBC (Bld) 9.1 % Normal 1.7-12.0 [facility] Comment on above: Performed By: #### L IPID, CMP, T7, TSH #### [facility] [address] [place] [address] Dr. Nga Ribeiro NEUT # 1.5 103/ul Normal 1.4-6.5 [facility] Comment on above: Performed By: #### L IPID, CMP, T7, TSH #### [facility] [address] [place] [address] Dr. Nga Ribeiro Neutrophils/100 WBC (Bld) 36.6 % Critically low 43.0-75.0 [facility] Comment on above: Performed By: #### L IPID, CMP, T7, TSH #### [facility] [address] [place] [address] Dr. Nga Ribeiro Platelet mean volume (Bld) [Entitic vol] 9.2 fL Critically low 9.5-13.5 [facility] Comment on above: Performed By: #### L IPID, CMP, T7, TSH #### [facility] [address] [place] [address] Dr. Nga Ribeiro PLT 194 103/ul Normal 150-450 [facility] Comment on above: Performed By: #### L IPID, CMP, T7, TSH #### [facility] [address] [place] [address] Dr. Nga Ribeiro RBC 4.51 106/ul Normal 4.20-5.40 [facility] Comment on above: Performed By: #### L IPID, CMP, T7, TSH #### [facility] [address] [place] [address] Dr. Nga Ribeiro WBC 4.2 103/ul Normal 4.0-11.0 [facility] Comment on above: Performed By: #### L IPID, CMP, T7, TSH #### [facility] [address] [place] [address] Dr. Nga Ribeiro FREE THYROXINE INDEX T7on FTI 2.66 Normal 1.30-4.50 [facility] Comment on above: Performed By: #### L IPID, CMP, T7, TSH #### [facility] [address] [place] [address] Dr. Nga Ribeiro T3U 36.0 % Normal 30.0-39.0 [facility] Comment on above: Performed By: #### L IPID, CMP, T7, TSH #### [facility] [address] [address] [address] Nga Ribeiro T4 [Mass/Vol] 7.40 ug/dL Normal 4.80-13.90 [facility] Comment on above: Performed By: #### L IPID, CMP, T7, TSH #### [facility] [address] [address] [address] Nga Ribeiro GLYCOHEMOGLOBIN A1Con 2021 ADA RECOMMENDATION SEE BELOW Normal [facility] Comment on above: Result Comment: ADA RECOMMENDED LIMIT 4.0 - 6.0 ADA THERAPEUTIC TARGET < 7.0 ACTION SUGGESTED > 7.0 Performed By: #### A 1C #### [facility] [address] [address] [address] Nga Ribeiro Glucose [Mass/Vol] 94 mg/dL Normal [facility] Comment on above: Performed By: #### A 1C #### [facility] [address] [address] [address] Nga Ribeiro HbA1c (Bld) [Mass fraction] 4.9 % Normal 4.5-6.2 [facility] Comment on above: Performed By: #### A 1C #### [facility] [address] [address] [address] Nga Ribeiro IRONon 10-30-2022 Iron [Mass/Vol] 119.0 ug/dL Normal 50.0-170.0 [facility] Comment on above: Performed By: #### I CHARISMA #### [facility] [address] [address] [address] Nga Ribeiro LIPID PROFILEon 10-30-2022 CHOL-HDL RATIO NORM SEE BELOW Normal [facility] Comment on above: Result Comment: 3.3 - 4.4 LOW RISK 4.4 - 7.1 AVERAGE RISK 7.1 - 11.0 MODERATE RISK >11.0 HIGH RISK Performed By: #### L IPID, CMP, T7, TSH #### [facility] [address] [address] [address] Nga Ribeiro Cholesterol [Mass/Vol] 201 mg/dL Critically high <=200 [facility] Comment on above: Performed By: #### L IPID, CMP, T7, TSH #### [facility] [address] [address] [address] Nga Ribiero Cholesterol in HDL [Mass/Vol] 78 mg/dL Critically high 40-60 [facility] Comment on above: Performed By: #### L IPID, CMP, T7, TSH #### [facility] [address] [address] [address] Nga Ribeiro Cholesterol in LDL [Mass/Vol] 108.8 mg/dL Normal [facility] Comment on above: Performed By: #### L IPID, CMP, T7, TSH #### [facility] [address] [address] [address] Nga Ribeiro Cholesterol.total/Ch olesterol in HDL [Mass ratio] 2.6 {ratio} Normal [facility] Comment on above: Performed By: #### L IPID, CMP, T7, TSH #### [facility] [address] [address] [address] Nga Ribeiro HDL NORMAL > or = 60 mg/dl - LO W CARDIOVASCULAR RISK <40 mg/dl - HIGH CARDIOVASCULAR RISK Normal [facility] Comment on above: Performed By: #### L IPID, CMP, T7, TSH #### [facility] [address] [address] [address] Nga Ribeiro LDL CALC NORMAL SEE BELOW Normal [facility] Comment on above: Result Comment: <100 mg/dl OPTIMAL 100 - 129 mg/dl NEAR OR ABOVE OPTIMAL 130 - 159 mg/dl BORDERLINE HIGH 160 - 189 mg/dl HIGH >190 mg/dl VERY HIGH Performed By: #### L IPID, CMP, T7, TSH #### [facility] [address] [address] [address] Nga Ribeiro Triglyceride [Mass/Vol] 71 mg/dL Normal <=150 [facility] Comment on above: Performed By: #### L IPID, CMP, T7, TSH #### [facility] [address] [address] [address] Nga Ribeiro VLDL CALC 14.2 mg/dL Normal [facility] Comment on above: Performed By: #### L IPID, CMP, T7, TSH #### [facility] [address] [address] [address] Nga Ribeiro PROF 14(COMP METB)on 022 Albumin [Mass/Vol] 3.8 g/dL Normal 3.4-5.0 [facility] Comment on above: Performed By: #### L IPID, CMP, T7, TSH #### [facility] [address] [address] [address] Nga Ribeiro Albumin/Globulin [Mass ratio] 1.1 {ratio} Normal [facility] Comment on above: Performed By: #### L IPID, CMP, T7, TSH #### [facility] [address] [place] [address] Dr. Nga Ribeiro ALP [Catalytic activity/Vol] 91 U/L Normal 46-116 [facility] Comment on above: Performed By: #### L IPID, CMP, T7, TSH #### [facility] [address] [place] [address] Dr. Nga Ribeiro ALT [Catalytic activity/Vol] 19 U/L Normal 14-59 [facility] Comment on above: Performed By: #### L IPID, CMP, T7, TSH #### [facility] [address] [address] [address] Nga Ribeiro Anion gap [Moles/Vol] 9.2 mmol/L Normal [facility] Comment on above: Performed By: #### L IPID, CMP, T7, TSH #### [facility] [address] [address] [address] Nga Ribeiro AST [Catalytic activity/Vol] 18 U/L Normal 15-37 [facility] Comment on above: Performed By: #### L IPID, CMP, T7, TSH #### [facility] [address] [place] [address] Dr. Nga Ribeiro Bilirubin [Mass/Vol] 0.5 mg/dL Normal 0.2-1.0 [facility] Comment on above: Performed By: #### L IPID, CMP, T7, TSH #### [facility] [address] [place] [address] Dr. Nga Ribeiro Calcium [Mass/Vol] 9.5 mg/dL Normal 8.5-10.1 [facility] Comment on above: Performed By: #### L IPID, CMP, T7, TSH #### [facility] [address] [place] [address] Dr. Nga Ribeiro Chloride [Moles/Vol] 105 mmol/L Normal 98-107 [facility] Comment on above: Performed By: #### L IPID, CMP, T7, TSH #### [facility] [address] [place] [address] Dr. Nga Ribeiro CO2 [Moles/Vol] 29.5 mmol/L Normal 21.0-32.0 [facility] Comment on above: Performed By: #### L IPID, CMP, T7, TSH #### [facility] [address] [place] [address] Dr. Nga Ribeiro Creatinine [Mass/Vol] 0.68 mg/dL Normal 0.55-1.02 [facility] Comment on above: Performed By: #### L IPID, CMP, T7, TSH #### [facility] [address] [place] [address] Dr. Nga Ribeiro EGFR-AF IRANIAN >60 Normal >=60 [facility] Comment on above: Performed By: #### L IPID, CMP, T7, TSH #### [facility] [address] [place] [address] Dr. Nga Ribeiro EGFR-NON AF IRANIAN >60 Normal >=60 [facility] Comment on above: Performed By: #### L IPID, CMP, T7, TSH #### [facility] [address] [place] [address] Dr. Nga Ribeiro Globulin (S) [Mass/Vol] 3.6 g/dL Normal [facility] Comment on above: Performed By: #### L IPID, CMP, T7, TSH #### [facility] [address] [address] [address] Nga Ribeiro Glucose [Mass/Vol] 100 mg/dL Normal 74-106 [facility] Comment on above: Performed By: #### L IPID, CMP, T7, TSH #### [facility] [address] [place] [address] Dr. Nga Ribeiro Potassium [Moles/Vol] 4.7 mmol/L Normal 3.5-5.1 [facility] Comment on above: Performed By: #### L IPID, CMP, T7, TSH #### [facility] [address] [place] [address] Dr. Nga Ribeiro Protein [Mass/Vol] 7.4 g/dL Normal 6.4-8.2 [facility] Comment on above: Performed By: #### L IPID, CMP, T7, TSH #### [facility] [address] [place] [address] Dr. Nga Ribeiro Sodium [Moles/Vol] 139 mmol/L Normal 136-145 [facility] Comment on above: Performed By: #### L IPID, CMP, T7, TSH #### [facility] [address] [place] [address] Dr. Nga Ribeiro Urea nitrogen [Mass/Vol] 19.0 mg/dL Critically high 7.0-18.0 [facility] Comment on above: Performed By: #### L IPID, CMP, T7, TSH #### [facility] [address] [place] [address] Dr. Nga Ribeiro Urea nitrogen/Creatinine [Mass ratio] 27.9 mg/mg Normal [facility] Comment on above: Performed By: #### L IPID, CMP, T7, TSH #### [facility] [address] [place] [address] Dr. Nga Ribeiro TSHon 10-30-2022 TSH 0.871 uIU/mL Normal 0.358-3.740 [facility] Comment on above: Performed By: #### L IPID, CMP, T7, TSH #### [facility] [address] [place] [address] Dr. Nga Ribeiro Covid-19 PCR (CVDTB)on 10-01 SARS-CoV-2 (COVID-19) RNA VALENTINA+probe Ql (Unsp spec) Not detected Normal NOT DETECTED [facility] Comment on above: Result Comment: When [...] for this test is supported by the [place] of [employer] and Human Service's declaration that [...] used). Performed By: #### C VDTBH #### [facility] [address] [place] [address] Dr. Nga Ribeiro INFLUENZA A AND B AGon 10-22 INFLUANEGH SEE BELOW Normal [facility] Comment on above: Result Comment: Nega tive for Flu A protein angiten. Infection due to Flu A cannot be ruled out. Flu A angiten in the sample may be below the detection limit of the test. Performed By: #### L IPID, CMP, T7, TSH #### [facility] [address] [place] [address] Dr. Nga Ribeiro INFLUBNEG SEE BELOW Normal [facility] Comment on above: Result Comment: Nega tive for Flu B protein antigen. Infection due to Flu B cannot be ruled out. Flu B antigen in the sample may be below the detection limit of the test. Performed By: #### L IPID, CMP, T7, TSH #### [facility] [address] [place] [address] Dr. Nga Ribeiro INFLUENZA A AG Negative Normal NEGATIVE SEE COMMENT [facility] Comment on above: Performed By: #### L IPID, CMP, T7, TSH #### [facility] [address] [place], [place] [address] Dr. Nga Ribeiro INFLUENZA B AG Negative Normal NEGATIVE SEE COMMENT [facility] Comment on above: Performed By: #### L IPID, CMP, T7, TSH #### [facility] [address] [place], [place] [address] Dr. Nga Ribeiro INTERNAL CONTROLS Within Normal Limits Normal Wi thin Normal Limits [facility] Comment on above: Performed By: #### L IPID, CMP, T7, TSH #### [facility] [address] [place], [place] [address] Dr. 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 Admission #: [id number] Family : Order #: [id number] CLICK HERE TO VIEW EXAM RADIOLOGY REPORT [...] No Treatments Excision Family Cancers None LOCATION: [facility] BREAST COMPOSITION: Scattered areas fibroglandular density. FINDINGS: [...] Nixon M.D. on 06/16/2022 at 13:28 Normal [facility] PAP ACOG PANEL 2: 30 to 65on 05-30-2022 . . Normal [facility] Comment on above: Result Comment: Perf ormed at: [facility] Performed By: #### L IPID, CMP, T7, TSH #### [facility] [address] [address] [address] Nga Ribeiro Age Gdln ACOG Testing 30-65 Normal [facility] Comment on above: Performed By: #### L IPID, CMP, T7, TSH #### [facility] [address] [place], [place] [address] Dr. Nga Ribeiro DIAGNOSIS: Comment Normal [facility] Comment on above: Result Comment: UNSA TISFACTORY FOR EVALUATION. Performed at: [facility] Performed By: #### L IPID, CMP, T7, TSH #### [facility] [address] [place], [place] [address] Dr. Nga Ribeiro HPV Aptima Negative Normal Negative [facility] Comment on above: Result Comment: This nucleic acid amplification test detects fourteen high-risk HPV types (16,18,31,33,35,39,45,51,52,56,58,59,66,68) without differentiation. Performed at: =G Performed By: #### L IPID, CMP, T7, TSH #### [facility] [address] [address] [address] Nga Ribeiro Methodology: Comment Normal [facility] Comment on above: Result Comment: This liquid based ThinPrep(R) pap test was screened with the use of an image guided system. Performed at: [facility] Performed By: #### L IPID, CMP, T7, TSH #### [facility] [address] [address] [address] Nga Ribeiro Note: Comment Normal [facility] Comment on above: Result Comment: The Pap [...] #### L IPID, CMP, T7, TSH #### [facility] [address] [address] [address] Nga Ribeiro Performed by: Comment Normal [facility] Comment on above: Result Comment: Kolton Carpio, Professional Bondsman (ASCP) Performed at: [facility] Performed By: #### L IPID, CMP, T7, TSH #### [facility] [address] [address] [address] Nga Ribeiro QC reviewed by: Comment Normal [facility] Comment on above: Result Comment: Adore Sloan, Supervisory Professional Bondsman (ASCP) Performed at: [facility] Performed By: #### L IPID, CMP, T7, TSH #### [facility] [address] [address] [address] Nga Ribeiro Recommendation: Comment Normal [facility] Comment on above: Result Comment: Sugg est follow up as clinically appropriate. Performed at: WB Performed By: #### L IPID, CMP, T7, TSH #### [facility] [address] [address] [address] Nga Ribeiro Specimen adequacy: Comment Normal [facility] Comment on above: Result Comment: Spec imen processed and examined but unsatisfactory for evaluation of epithelial abnormality because of insufficient cellularity. Performed at: [facility] Performed By: #### L IPID, CMP, T7, TSH #### [facility] [address] [place] [address] [address] [address]ga Ribeiro Coding Summary.on 12-30-2021 Coding Summary. CD:[id number] Gh 0bWw+PGhlYWQ+TZ4LTPSoN 21jgKSwtY7ZP9lSAD2OUEB FQJXXZR0OIR2dqUD7ABqbY 2VybiAv NgriqTByZD60ETd8PNV5mA ifLRhftW4pzVEnB9z0IwIc WU61eO43AGvvWTRuNuC6Wt ZpbjsgbWFy U8wgVnXdaAJbOso+PHRhYm xlIHdpZHRoPScxMDAlJyBz lTshGC7oCg6wNIOnWFVzsA xhcHNlOiBj v9ijMTYoDMsxVW7isEmcK5 CzqKN2XXWzw8n0Yc18fYM+ DFVjXJS3uKmbVNowx556Mn Rnc5pyUZQ5 wKLpENobNAR6G41br6D1KP PdNQAaXGN2rSF0tR4niEvg cockU0OhtUYzAtW9NKR6qI VmjR8yxEff onlkxJ8wHqh+G89GPY3UXV VMWB4DObt3M2UbRqjqdFV+ SV51ILJlRS59jSDfxUQxe9 ibdYe8MdYo NPDqFOF6nBsgUZduh6LkBO GvV53hwWUly0H5QYGlsCai xUXfPwQxbWP1eM1qXDcwmy emv0uxranm Hcknr4sbfa92vE46V39rPC vnJLFzJOH6ZCIvYUVuzPfv xg7msO3uDy9+THtvg8yat9 mhfMl7IlJr UEJqetOfwKnlIVT1y4ZvHv 13P8XfjDpdw0JeAku7bk29 nYLjp1N5tJW1SIpiZVYsbR 4qMKpdTjC5 CBJnSzRqdL67gYOdECydDi 3yuLyphUqbPD0lQUHafuqr XBSsuO6zGHTotQVnrAfrDF 4wNTBpbjtm m815GtJxAVA1MFUiqXEeP8 KdnJ7sUvAsVUPyIWRhQ1Fw lYZkNPueR042ITlaLuT3TW CmrgAxR2Rw ITRifEvfHvL9j5G2Ua9Zq0 WomqrsSIO7CFyqRPVvMfXp CwAxSgZ4H4WgQvd6YQDjpH kxRH0lY2Pg UZPrnzahmthprTX5HNMyRU ZrmR69wJAdMIgjIf3dj0T1 s497DEDaCOSmtW65Xb0lpO ogMTBwdCBU fY3kkhfmc8vjwsfvGhRvZT IlCIe3ZEt9XJErnEhrLuTd DTI2KxY2DTM3vGZtsO1krV elxkkkeM1a Oyc+A52kpD7mOSO2DFA9qx gaUHNxkgTkLP47JH36U9Cs PjwvdGFibGU+PGRpdiBzdH rnWD9nAeKz v6wgw9LmHYvlU0GxZRDeNM gzHsg7GXWfRJU9hHG5lD9b DAFsREzkp9T6hTM7J7Znav Mqpy3gz6bk NNTiRBkyR96qnKLot5G1ZZ EvlTH6MIOoiCwbSkCgdR89 Oyc+UWPdhRaxa9NqFsvoa4 man0vhrDq5 JyTrJQXspvFpcGiuCBB2x2 EuCm55Z77zZXhdRKWlJPKg BKOsIYNycAngzy5bvQ4fAo 8+PGNvbCB3 yVG5jG8jMGFaUnG0QBhdX8 92AqIcaVLpCbfbp0eya2mh bZu4JnPcWVMlmyDadOpkHR Y5k8KeTv40 D13dDJdgVROlORUtJJElOU TsiGpjuz7xuG3kMs9+PC9j c6pooq31wX13jTV+PHRkIH Z8mAcxPMqd HNMufN4pWLanIeH9FELpPe EqlE60qJVjFDjhWj8aoLum fXjkJY5aXKXbpppgt559Pc Imz8bzHDAy oJQxBHpzZHS1I40jk7S4IW GvOHOwKOT5vYD3mI1zyXxg bjogbGVmdDsgdmVydGljYW psQMrvD153 IHRvcDsnPlBhdGllbnQgTm QaAPi4B2NfOis8FQTvfGyl SP1vbHYiIYkkJa7kmNcjoO hqBV5oIIHi rzhcw109QuHhr5spOHLvdX OiQTaxVSF9K54sf3R9TZWu VOTbZWF4tJS7jM1mdJnpgf ogbGVmdDsg veIecYgvRRqsEBrsU915PK RvcDsnPkJpcnRoIERhdGU6 HL20JL57fZIhv2S8pAJ5Z3 BhZGRpbmct lmyjkLX7SFRxQTEvwI30Ie 5dgLjxUa6tHKSpEMH4RUNz aGPjK1UyvR1zEtVwEIJhQV SqB5QhlOZf ZAkiX293CZnwNiD6LIFauf HiL5UuYKCwjMfsXoP5t4J1 Et7MJ0A0KQ76OC87wSWmm8 C5qGT0A5Ep DFZczaomfdxztLA1WYGaXX FchH37Xk3exObuQb7oCMPy YCU6IOToaWLqP6AllA9eYi AjMDAwMDAw R9WacOJdNZlaR864FSogYw M6OHTwmeMdC0QiEOMwySwo FhX3b3R4Dh3QOLf6VP50LC 20sBEoh8N4 uFN2K7GiFOTxbilptxmedF O3FRFvFXUmyK83Ih5wyEyv Bk3wZVHeKPR3FMYebPIvQ4 IcyR8pCvSm LXKxKECdJ7CqcXShRDhpH7 78EIqoGrS6ALVjlbXhG9Hl RGVtxTsvIrF9r4D0Kd5WVM ZsKG76GRD3 nNF5HX03SH96H8FoGalrbN FibGU+PHRhYmxlIHdpZHRo GArdHJMvYiVwoMayDL6cVe 9yZGVyLWNv jQfyoHUoBbKtu4cnVERgDD zyHZ8osKnnS0CekNZ1OTIe s0m3Da81Z40dM2YwnFY+PG OihBS3eMS1 dX7qDiCrGfP1JDqtM853Yt QfsPPuFtiny4rew1jenSb0 AfG3APFsovAkrYgfYHJ3d4 DkGr26F90d IHdpZHRoPSIxNSUiIHZhbG gtxs2elK6tEx5+PGNvbCB3 eUL7aW5jYnRcAgX0FQgqU4 49InRvcCIv Hchvo4iah0qqqXf0UnLwCY LvoaVtyCbwRAL1f5KhRg05 Z8UjrZnlw5EtJyx6qi43iC Ecm4Y8kPZ5 T6QjUWSpdtesrLVvpLehEH 4jBRPrqvgsUMSumQ3wJDKh R9b2LeRgIuK7ELhxQ3Rubn U3WUZydASy WTlyLQI6V28al7R8PUWwTU BdAUK8zJN7nZ0kjGyrwbwr bGVmdDsgdmVydGljYWwtYW joN244UKIa lTzyRYApgR5wJVFsiINrjH hwUY9sIIIieqfbOd8WSLLE UiwgQkVUVFkgTDwvdGQ+PH PqHFE7kRwe TDrzZAUzqT7gVCAjU0s6Hq YnTqI9KNrpE1SoZWJulwhk Lu79hA2zRtXuEkU8ECyaK7 IebtR5ZDKw gGLaOGhjFGC7A10mn6A7EO LeXSOxZQA3wBC6yB8gzBzu bjogbGVmdDsgdmVydGljYW toXTtjK947 BKXopMwjIgAeIsL1JzK5Qb P9V9JpPgr5JUWuyUmpSL1j wSVmABimBk4hiSepeAjfEQ 4wNTBpbjtw HWWidP4lOZUdiXYytEzkFB 4dOZRevjajm494ZsMpLMK5 SRLolCEwT1UamM0rNdNeDM YyVKEeO0Ya wXRtJLmuX140LVzyPvI7QR GbgyBaH1XjURQbqTtiPhG2 l8G3Zr06HAJAXOVuinthgE Q+PHRkIHN0 zBirBZibSFOpkD1aTMTqQ2 m7JkJcFnH7BVfjN1MlNLLz dgowEs25oM7aCpWcDgY7EB bhI6PdeyH8 DZUrzPSaTPktWMG8X62ed3 B3LVHmTDDkNHO6gCY7bN4e bGlnbjogbGVmdDsgdmVydG ljYWwtYWxp H954LXVhrMplUfBoeLEmFP wvdGQ+YXCrAVH7qHyeCXgb JIUhxE0dNCJpY4l3XjDjCa J9ZWrwW9Cs LJLqdzldOf10tG0gRdFeWd D3WMbkA1SqukC8EOMbdHAq IJfnQRZ4H18tz3R1USDlSD EmNON8vQC9 mG7evXyxavvpmJOsrLoqiv EuoKwxAMjuDUipD597DOUi gSooVx96hBQcvTpnfdA6D9 RkPjwvdHI+ AN20SBFsSY83kXFsfGVjy8 irfAy6DxTxSQWyGKS8gIrs UAvqn8PrXRVaY74uqJYpv9 M7SRJfxIhu tZGpOaZdrFN7fL5dTVrnia ilc1ndpzeyVralh3hxjy94 fS45A49rKJakNKWiTDVnMI UiIHZhbGln ua9opM1dRq3+GGSlnAZ0gJ D0qK1iRzDpPlM7UGlsU888 NbWzfGHmTmzfb6cte0rhwM l0SyGsQSWi ulAfaCopINR8j5WaLr27V2 9sIHdpZHRoPSIyMCUiIHZh jKgxba0ojT2rXr6+PC9jb2 siss02yM39 dHI+LOSxDMT1zVthGZiiDQ LioP1oAGslEfD3LJFxZoOk lH16pXEiSPaoYy8sgUkpyD rcPS0aOHUx ezgig340CxIad8fkBFEucZ CmXHvjGID9D14yc0D4ERSa GNQzQFQ5uRY5jS0bbQolbr ogbGVmdDsg gtDpqOtkBNzvEAksQ135XP EbxMndQgXxgFYgL3giysBI AS9eHgzplGB+UATxXBO0eA xlPSdwYWRk jJ0mDCOrP3h2AdFrDqU4ZA dyQ4CvbtF9LNSlaVPqHRAd tPWFmA0lstqdh6neepndCo AwMDAwMDt0 YHr2OIXplYbaAjFkILT0Qb T4UXW0mIThgV7ceNxpwdko tL4kQus+RklOOjwvdGQ+PH ExSJZ4mEan VQmoAJTssJ1kFDKnV8k8Lo RsYcW1EXolZ4DqbvI6MWGo kHKcWHRsvJBPlC7queznu7 xvcjogIzAw XKXuXUo1DMf2WLKjtOlgHs UvXHW6PgZ1FGK8zEIhnM1l rMkkwhwryY7qTvj+TVJOOj wvdGQ+PHRk XMO5aUdzKXakHZDadR7xNZ EyB0u3LwQnPoA9PRwrL9Ta gkS7IGHgbTZcTNMkeMTMgA 0mpuaog5wg xfprMgLoSBEtHFj9ESj4DA IsdIibKtRfXED4HwT3CKH8 kOMuuF8cdGvzcxkfcF4cYo c+PSM2KLZ2 AS33GP88V9MuYyclnCYpgL U+PHRhYmxlIHdpZHRoPScx BVNmMzHudIqoZL3vWu0rQT VyLWNvbGxh cHNl (more content not included)... Normal [facility] Coding Summary.on 12-27-2021 Coding Summary. CD:[id number]:[id number] Gh 0bWw+PGhlYWQ+OS5NMBAvV 15cdJKcxE3LB1kCNR9VXRX BSXRYEP7YMC5zlXO4WAdvJ 2VybiAv ZillkITiWW65PNp6QUW8rV ysQJcdgV1oePIvN1s0FnFi FX94pI90MEhfJXMxXeH5Si ZpbjsgbWFy Y5cnFrUunGBbMup+PHRhYm xlIHdpZHRoPScxMDAlJyBz mKbiQF5zYo1uEENhDOGfbU xhcHNlOiBj g2qnOCLvHTflEZ9mnQwsS9 WlvYY6RQBfg8m7Nn27mQF+ VLWsISO6iWkvPRfii468In Qgo9pgFBF7 jVMqOCrtUJE6G69ka3I1IV IrYMCmRRG4gLO9aN2puCuf zrolG8OrnWBjNrB1MQQ2oK VtkV3viQer asywdL4sQfw+F97DQO4INU VQSB2BZtw8G7BoWxulrMY+ CU07UKKyGX27fBOooBEce6 fsyHh2HbIe GSRbNBQ2rPwxUNuhy5GnIZ PrH21zrQPlu3D5SHCqvFjz wCMgAcRosLD4dT4iSMtqik equ6ajxfjz Fporl5izut62kI50R86tLZ rcUBAkOMR3BUSwHKVtyFvp tt7woC8mRp4+WOkmi0rlu7 pzuZh3ImHe CRCymjWbpUpaIUP9v5UaRp 62A7GjdYwwe6LzKnc0fg86 lIFue2U5dDA5PIwcETJetG 1cLTdnJaE0 IJJwCvEqcI07bRQkVBfzFf 1ikTpkgXmhWQ9jCWDivcgx GSYljN6lJRHvrTVpwKnxWG 4wNTBpbjtm y825ExWcARY1TBStlSWrN1 WyoJ3zJwXgPGJuBMPyS9Jn gAHeYTssG400AJrwNaX2CZ IpqkAnS9Oc HUOplRlzIvD1a8P1Oa8Ku2 BysbcwVIV8FXpkPWLoUwC0 CvSxLpT5X3IaRht0FNOmcG xbTA5dB4Rw FNBfrzxbmxbebOH4EEYzCS NzwT29fVRkJKchZz7ry4D9 x422TBYnRFMaiA03Dj0doS ogMTBwdCBU lQ4xcraqz5ewjugfFiWoQW QeHXh2DKu4WFNtcVygZeLy AOI5LdX7CTK9lTDwoE5lrP fwqemuyA9g Oyc+W50pcH8lNTR1WYC0ui giDCYzscOuCL33WQ55K2Ni PjwvdGFibGU+PGRpdiBzdH slWZ2yWqSm f0bah4RwXXdkO4LvDXWgJB stGex5VTOnEOU6pZO6rE3p CATmAOzel1R8mCT7D8Tefv Qxwc2oq6ah ZZMrOSvpF72peVJxi1S1ZR LeaDN0UMXieEgiYjTjrO42 Oyc+WPZbtChrr3GkLtkly2 xjr2kryBw1 PkTcNPCdeiCwzYqzWVA1u4 ZsLn07F82jIFvmHGTeATKl VMPwAYEmdLlxjy4wwN3dMg 8+PGNvbCB3 vUS8mP6cZWIbOwU3YIdhZ1 48EeIcrQPpQppiv0bjb7nn jIp4CjEqINUtfsJclBzxKF W3f6NfXc14 X15eFKasTWKzCBLrRUEpJE QyrRfeyp8hlL6rLp8+PC9j u1xlih23nE30kJO+PHRkIH P8iKydGYhm TUNdpL4uHJwtVnQ1BISyZw OedC58wGBaTSvkIi2qaWoq pFhrGT9gRJTdrzehd623Jr Mei2ntYWHl aVHrJCogVVI5E81db9B6NR KhREOsMWU3hFS9eA3jeRvv bjogbGVmdDsgdmVydGljYW fsKUboD667 IHRvcDsnPlBhdGllbnQgTm XpWEr6H3BkUmb9WZEpbDar UH4mmWVpZYhqJs5roXhkpM bqCK9wDARf qhfez473RvKch2drIXFqhD HnPTpfUFT8S44vl1X7KTRz SVZnCMB7gRE2rF0jpZltrb ogbGVmdDsg vfCwiWskJWrhTFzvC541ES RvcDsnPkJpcnRoIERhdGU6 WL65JP46rUCpx3B4dJR2H0 BhZGRpbmct saevmKS1UVFxRLInpQ16Yw 1nkIjyRl9tOQXfYZJ8DUDf tNVhZ2UkvZ8nKaItIGBjKH CuK6NtuGPb MLfyY608SYreHbF1PTRcmo FfY2YnIDBkcDddYuR1l1Z1 Cv7YO0I2TL62GZ89kOBnk2 Z7sGA4O3Bm CJLvtiujwjofbBP4NSNhJI ModQ16Rq0qeRkxIl0pWKUm FJL9ABUqrIFuG4SczO6zRu AjMDAwMDAw U7PmeZBnTKpzY626ZCtuLr M0UPYrujTjW7WoXGNhaNtb MsP8x4F6Ht8AQZn8OX19TL 85oMRhf1O0 vUM9H3TjJMJqikrqpaknyV I4RNGbWQGhyV91Ky5aeYhr Kt3hOBYfRSV0ZWIosIBhR1 NlmK4jSuPp SGEzVZSvW8PviTXhKGcqU6 76MPqwYtB8OANhvgCaZ9Ly GXPdrIfjSiW6a0U3Eu6OHL BgXD46CXX5 fQM5WX15KI86D5SvMhyrfI FibGU+PHRhYmxlIHdpZHRo QLgdPTYzPwArbOhkWK4xHk 9yZGVyLWNv zXrecIAqZsSuu5wbAHGiRD txDT9weKomN8ZjxOT9XYEn d7i6Zl39E91qU9PvjGR+PG NzsET1lFN7 yP6rNkBrDsP7WCcrC267Oc GljMLnHbjby0zvn2heoUo8 ThJ7PBBhkuHgjChdLIV7c9 AbGi15C09k IHdpZHRoPSIxNSUiIHZhbG cmyj1uoY6cBn3+PGNvbCB3 pUF2zD8zIdWvPiF2NDrwY7 49InRvcCIv Brsdl7boh1vagOz5StTjYU VjmjWqySczAHK3b1HqOb57 S8AuiBlyy0RpYth5qw12rU Stm8N1dQP6 Q7RpJWZvkuoriEQxqUtjFR 3wVNWlyqlzWYSmkH5lWRIf X9s7NnNjAfQ5EVkxC7Nejk H7UCVgrWGo YPffLCO6H13wy7C1FXTgIX LuKBB7jRU8xZ1wdOkmpyvr bGVmdDsgdmVydGljYWwtYW fyZ345JWIz mSotADEizR7fVVPmzWIpmE zlFT9mWOPtodpoIy7ZOEDD UiwgQkVUVFkgTDwvdGQ+PH IkNBI5zPis XHuaJIXmdN2rTHDwN0i9Wu ZlVpG4ZEehB3FtLBJivycv Zj11hP2eNnZqSqN3FUvzK7 VcheS5FLRt dNHwDDctGUN6R79jt9W7OT WsXBMeICA3jQR8yN6ybOvb bjogbGVmdDsgdmVydGljYW eqUEpcI622 XGSscEhjJdCnLiT4McX5Pe T7Q6SzBkb3WAOxkMmjAN4x aZRcDFbzAd3hyXrpuIwuSA 4wNTBpbjtw MJYddG3qLTZquLJmmZwnHS 9bYAAcsivrr606ArFwQQH4 JCBduXEoF2HbjS5fLsSsSO VhMDWyY8Sr aDJfFGxhK165TSbwKsN8RB PyxjGvJ5BoTCCmuXreTrG4 p2P5Bk82LLTVGTNqkmcjeC Q+PHRkIHN0 aYpaTDbaSDWpkI7jGAFwH2 k2SoAlPqX2EGtnJ9PgGAMx vpyoKf80gC9cLpYrZcC0MP cuA0OwisD6 RKWrnUFaBWrmKBR4M92ui1 X4NJShFZYlCMN0uTX5eM2x bGlnbjogbGVmdDsgdmVydG ljYWwtYWxp V437UPZttNgpMmPfpKRqJO wvdGQ+UHSgQFE7yHxtGHpf LWXqkN7jHMPxH2u1CxFrUu L1TRyhC1Id NWXrmvyhOs25oW5wJiQqMu I4ASlvZ0XwkxE5FBQcrMDa WZfuCPU3K64ev8E8TTVaJJ RoEOX6zVN8 rU9fhRkshlpswRVjuUnvne KxhFxcWOntMKerU806HWFi yTitSt67xCPduJffjfJ9G6 RkPjwvdHI+ SJ25WLXuAS16cQDnvUQma9 udtTs3BmOyZOQtGXO2yMwu LRpal4YqAZVdE41tpJWdt1 S6DZEdpBwn eELxHsUmwIG0zY5lYGuhkw qiu9xsgmrpZbhmz1poux15 yV82T71eWCsoVWXuIDXyWC UiIHZhbGln vw2ndB0xIw0+LYZdzVQ0mJ N3pD5fFxCwMmH7QQheN126 XbSbqLYyZpgdu0ile1qevA l2OoYiEFWd boJbdUcjLWW2e7MvJd89J0 9sIHdpZHRoPSIyMCUiIHZh hGuuyh4flP5bTd4+PC9jb2 lmmb05zX97 dHI+KXWuNPT7kSwlSGufCU OzkF9rVHqjAtQ9AFQrGmTo gR48hIUtBYlgBn7jeQwqaR dlZK6lJGOw kduxq745BpUqh2dwRGFczP XgWGzeBSG6B07ye8O7HNWe TBHsLZH4hOA9pO7uqPvzvx ogbGVmdDsg fxXwrVxlNNrcGIuxD923MI IsxIdrPfWecDCfO1eocrYQ FM5aIinwjYQ+WTAfUDR2dN xlPSdwYWRk fG4hZPAiI3p0XaHhNwY1VJ weK9RpsdI8ZAXisOAqAQUl wLVWjJ8tordsk8qnahbsJs AwMDAwMDt0 UAy2DXNgxSrpCkYvIEV0Km F1GRL5fWVukV6xmWmzyltc nG7dSwe+RklOOjwvdGQ+PH KrSHS9iYqa TThjMAFcwH9kBQMyO3y2Ee FqKmC3PMgrA5CszfR6CQIv lPYjGNMyrKWMbO1mfozak3 xvcjogIzAw NAOjONq3WXu7GAWrfCjeVb ByRUV6SiA3VOM3sSGtqH0y wQitrljldT1tDtj+TVJOOj wvdGQ+PHRk IBD4bXcoJUloOKYxzS9jEO YqB4h7XxTuJhI2AOobM3Rr glU7LQLhqMHwVYUwuCWYfV 7fkjtuf2we kqvnNbCtQXFgUFo5TGo9ZB HwcFsfPaSdSBE0XpQ8XCY9 gMFqfY4oiCmqieepzX4gLb c+LZY2NDB5 RU28PI36I7FeDpcimVEfoD U+PHRhYmxlIHdpZHRoPScx SQBvAwEmwIenKT9fSs6gOR VyLWNvbGxh cHNl (more content not included)... Normal [facility] Consent for Treatmenton 12-01 Consent for Treatment [id number]#[id number] 0CD:127 Normal [facility] BMPon 12-19-2021 Anion gap [Moles/Vol] 14 mmol/L Normal -16 [facility] Comment on above: Performed By: #### 1 [id number], [id number], [id number] #### [facility] [address] [place] [address] Calcium [Mass/Vol] 9.6 mg/dL Normal 8.9-11.1 [facility] Comment on above: Performed By: #### 1 [id number], [id number], 5803538 #### [facility] [address] [place] [address] Chloride [Moles/Vol] 105 mmol/L Normal 101-111 [facility] Comment on above: Performed By: #### 1 [id number], 3970991, 0442849 #### [facility] [address] [place] [address] CO2 [Moles/Vol] 27 mmol/L Normal 21-31 [facility] Comment on above: Performed By: #### 1 [id number], 5430120, [id number] #### [facility] [address] [place] [address] Creatinine [Mass/Vol] 0.9 mg/dL Normal 0.5-1.3 [facility] Comment on above: Performed By: #### 1 2363438, 9995575, [id number] #### [facility] [address] [place] [address] Glucose [Mass/Vol] 95 mg/dL Normal 55-199 [facility] Comment on above: Result Comment: If t his glucose result represents a fasting glucose, interpretation should refer to the following reference range: 55-99 mg/dL Performed By: #### 1 [id number], 3079794, 2235359 #### [facility] [address] [place] [address] Potassium [Moles/Vol] 4.3 mmol/L Normal 3.5-5.3 [facility] Comment on above: Performed By: #### 1 [id number], 6289643, 8397461 #### [facility] [address] [place] [address] Sodium [Moles/Vol] 142 mmol/L Normal 135-145 [facility] Comment on above: Performed By: #### 1 1000494, 3402006, 9253603 #### [facility] [address] [place] [address] Urea nitrogen [Mass/Vol] 23 mg/dL High 5-21 [facility] Comment on above: Performed By: #### 1 [id number], 1377069, 0529855 #### [facility] [address] [place] [address] Urea nitrogen/Creatinine [Mass ratio] 26 No Units High 09-18 [facility] Comment on above: Performed By: #### 1 [id number], 0309511, 5572058 #### [facility] [address] [place] [address] CBC w/Indiceson 12-19-2021 Erythrocyte distribution width (RBC) [Ratio] 13.3 % Normal 10.9-14.2 [facility] Comment on above: Performed By: #### 1 [id number], 3742782, 3064747 #### [facility] [address] [place] [address] Hematocrit (Bld) [Volume fraction] 38.6 % Normal 34.0-46.0 [facility] Comment on above: Performed By: #### 1 3508089, 7192241, 2277787 #### [facility] [address] [place] [address] Hemoglobin (Bld) [Mass/Vol] 13.6 g/dL Normal 12.0-16.0 [facility] Comment on above: Performed By: #### 1 [id number], 6739125, 5518317 #### [facility] [address] [place] [address] MCH (RBC) [Entitic mass] 31.1 pg Normal 27.0-34.0 [facility] Comment on above: Performed By: #### 1 8669974, 7907617, 4588734 #### [facility] [address] [place] [address] MCHC (RBC) [Mass/Vol] 35.2 g/dL Normal 31.4-36.0 [facility] Comment on above: Performed By: #### 1 2385431, 7666716, 8912229 #### [facility] [address] [place] [address] MCV (RBC) [Entitic vol] 88.2 fL Normal 80.0-100.0 [facility] Comment on above: Performed By: #### 1 [id number], 3388834, 5174897 #### [facility] [address] [place] [address] Platelet mean volume (Bld) [Entitic vol] 8.2 fL Normal 6.4-10.8 [facility] Comment on above: Performed By: #### 1 [id number], 8460920, 8516647 #### [facility] [address] [place] [address] Platelets (Bld) [#/Vol] 231.0 E9/L Normal 150.0-500.0 [facility] Comment on above: Performed By: #### 1 6335340, 9357735, 4155283 #### [facility] [address] [place] [address] RBC (Bld) [#/Vol] 4.4 E12/L Normal 4.3-5.9 [facility] Comment on above: Performed By: #### 1 [id number], 0683533, 8071166 #### [facility] [address] [place] [address] WBC corrected for nucl RBC Auto (Bld) [#/Vol] 4.5 E9/L Normal 4.0-11.0 [facility] Comment on above: Performed By: #### 1 2326771, 1263483, 2945814 #### [facility] [address] [place] [address] Consent for Treatmenton 12-01 Consent for Treatment [id number]#1.0 0CD:127 Normal [facility] Physician Orderon 12-19-2021 Physician Order [id number]#1. 00CD:127 Normal [facility] XR Chest 2 Viewson XR Chest 2 [...] V. Transcribed by: DELICIA Technologist: RH Normal [facility] eGFRon 12-19-2021 GFR/1.73 sq M.predicted among blacks MDRD (S/P/Bld) [Vol rate/Area] mL/min/{1.73_m2} Normal >=59 [facility] Comment on above: Order Comment: Order added by Discern Expert. Result Comment: eGFR is race adjusted. AA=. Performed By: #### 1 [id number], 4476424, 3548924 #### [facility] [address] [place] [address] GFR/1.73 sq M.predicted among non-blacks MDRD (S/P/Bld) [Vol rate/Area] mL/min/{1.73_m2} Normal >=59 [facility] Comment on above: Order Comment: Order added by Discern Expert. Result Comment: Color Matcher kary kidney disease could be indicated at eGFR's of less than 60 mL/min/1.73m2. Kidney failure is indicated at less than 15 mL/min/1.73m2. Performed By: #### 1 [id number], 3010094, 5501259 #### [facility] [address] [place] [address] Physician Orderon 12-06-2021 Physician Order [id number]#1. 00CD:127 Normal [facility] RAD - MISCon 11-04-2021 RAD - MISC [id number]#1. 00CD:127 Normal [facility] MR knee RT wo conon 08-30-20 MR knee RT wo [facility] [place] [id number] MRI Report Signed Patient: Cony Matos MR#: [id number] 19 : 1960 Acct:[id number] Age/Sex: 60 / F ADM Date: 08/30/21 Loc: [facility] Room: Type: [facility] CLI Attending Dr: Jose A [...] Jamarcus Prado M.D.08/30/2021 11:36 AM Dictation Location: [facility] Transcribed By: [facility] 08/30/21 1136 Dictated By: Jamarcus Prado II, MD 08/30/21 1120 Signed By: 08/30/21 1136 [facility] XR knee RT 2Von 08-22-2021 XR knee RT 2V [facility] [place] [address] [place] [address] XRay Report Signed Patient: Cony Matos MR#: [id number] [birth year] : 1960 Acct:[id number] Age/Sex: 60 / F ADM Date: 08/22/21 Loc: [facility] Room: Type: [facility] Attending Dr: Jose A Petersen MD Ordering [...] Jamarcus Prado M.D.08/22/2021 1:26 PM Dictation Location: [place] [address] Transcribed By: [facility] 08/22/21 1326 Dictated By: Jamarcus Prado II, MD 08/22/21 1325 Signed By: 08/22/21 1326 [facility] Cardiovascular Lab Reporton 05-17-2019 Cardiovascular Lab Report [facility] Patient Name: Stephen [facility] Ceasar MR #: [id number] Department of Physician: Rico James M.D. Division of Service Date: 05/17/2019 Cardiology Birthdate: 1960 Adult Cardiovascular Room #: [address] [place] [address] Cardiovascular Laboratory Report INDICATION: The patient is [...] signed informed consent. She was brought to solar lab technician in a fasting state. The right neck area was prepped and draped in usual fashion. Using ultrasound guidance and micropuncture technique, the right internal jugular vein was accessed. A 6-Puerto Rican x 11 cm sheath was placed. A 6-Puerto [place]ican Irvin catheter was used for right heart catheterization with measurement of pressures and calculation of cardiac output using the estimated Sherman method. Irvin catheter was removed. Jamar's test was favorable on the right. Access in the right radial artery was obtained using micropuncture technique, a 5-Puerto Rican 11 cm Hydrophilic sheath was advanced. Verapamil was given through the sheath and heparin was administered intravenously. Bilateral selective coronary angiography was then performed using a 6-Puerto Rican JL5 diagnostic catheter. This catheter was removed. [...] Rico James M.D. Date Dict: 05/17/2019/12:19 P/Rico Jmaes M.D. Date Trans: 05/17/2019 01:54 P/timoteo [id number] cc: Paddy Stone M.D. [address], [facility] [address] [place] [facility] Vital Signs Date Time Vital Sign Value Performing Clinician Farrah arthur 08-22-2021 10:00-0400 Body height 167.64 cm Jose A Petersen Other [facility] Other 08-22-2021 10:00-0400 Body mass index (BMI) [Ratio] 25.01 kg/m2 Jose A Petersen Other [facility] Other 08-22-2021 10:00-0400 Body weight 70.31 kg Jose A Petersen Other [facility] Other Encounters Encounter Date Encounter Type Care Provider Facility Start: 04-02-2023 End: 04-03-[address] PADDY STONE . Facility:[facility] Start: 11-08-2022 Encounter for genera l adult medical examination without abnormal findings DR PADDY STONE . [facility] Start: 11-03-2022 End: 11-03-[address] [...] End: 10-03-2021 ambulatory Jose A Petersen Other [facility] Other Start: 10-03-2021 Telephone encounter Jose A Petersen [facility] Start: 08-22-2021 Office outpatient ne w 45 minutes Jose A Petersen [facility] Start: 05-17-2019 End: 05-18-2019 Patient encounter procedure PROVIDER UNKNOWN Facility:[facility] Payers Date Payer Category Payer Unknown [id number] 1960 Unknown [id number] 2.16.84 [id number] 1960 Unknown [id number] 2.16.84 [id number] 1960 Unknown [id number] 2.16.84 [id number] 1960 Unknown [id number] 2.16.84 [id number] 1960 Unknown [id number] 2.16.84 [id number] 1960 Unknown [id number] 2.16.84 [id number] 1960 Unknown [id number] 2.16.84 [id number] 1960 Unknown [id number] 2.16.84 [id number] 1958 Self-pay 1958 Unknown [id number] Social History Date Type Detail Facility Sex Assigned At [facility] Other Evaluation note 08-22-2021 Note Date & [...] of pain and plan potential surgical treatment. [facility] Other Evaluation note Note Date & Type Note Facility Evaluation note No Information [facility] Other History general Narrative - Reported Note Date & Type Note Facility History general Narrative - Reported Type Surgical History C section x3 Surgical History hysterectomy Surgical History gall bladder Hospitalization History see above [facility] Other Summary Purpose Family History No Family [...] and content) DATE CREATED AUTHOR 07/12/2019 [facility] DATE CREATED AUTHOR AUTHOR'S ORGANIZ ATION 01/16/2022 [facility] DATE CREATED AUTHOR AUTHOR'S ORGANIZ ATION 02/21/2022 [facility] DATE CREATED AUTHOR AUTHOR'S ORGANIZ ATION 10/03/2022 [facility] dical Specialist DATE CREATED AUTHOR AUTHOR'S ORGANIZ ATION 04/09/2023 [facility] REASON FOR VISIT (unrecogniz ed [...] BE BASED ON THE PRIMARY CLINICAL RECORDS. [employer] [facility] provides no warranty or guarantee of the accuracy or completeness of information in this document.
[2023-12-14 07:32] LABS: Alanine Aminotransferase 27 U/L (14-59); Albumin Globulin Ratio 0.8; Albumin Level 3.3 g/dL (3.4-5.0); Alkaline Phosphatase 105 U/L (46-116); Aspartate Amino Transferase 19 U/L (15-37); Bilirubin Direct 0.1 mg/dL (0.0-0.2); Bilirubin Total 0.6 mg/dL (0.2-1.0); Chol HDL Ratio 2.7; Cholesterol 208 mg/dL (<=200); Globulin 3.9 g/dL; HDL Cholesterol 78 mg/dL (40-60); Total Protein 7.2 g/dL (6.4-8.2); Triglycerides 85 mg/dL (<=150)
== END 2023-12-14 06:45 | disposition home or self-care (01) ==
LOC: LAB 06:45
PROVIDERS: PCP Family Medicine; Visit Provider Family Medicine
DX: E78.00 Pure hypercholesterolemia, unspecified (principal); Z79.899 Other long term (current) drug therapy
CPT/HCPCS: 36415; 80061; 80076

== ENCOUNTER 2023-12-15 09:28 | Outpatient (OUT) | payer OTHER, SELFPAY ==
--- OUTSIDE RECORDS SUMMARY | 2023-12-15 09:32 | XMS_ITS | CCD ---
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 Role Phone UNKNOWN, PROVIDER Admitting Unavailable UNKNOWN, PROVIDER Attending Unavailable PADDY STONE Referring Unavailable SHIRLEYY, PADDY Primary Care Unavailable Jose A Petersen Unavailable ARDEN ., DR THOMASON Primary Care Unavailable HOY ., DR THOMASON Consulting Unavailable HOY ., DR THOMASON Attending Unavailable HOY ., DR THOMASON Admitting Unavailable DECKER, DR WALDO Perkins Consulting Unavailable HOY ., [...] / oxyCODONE Drug Allergy 10-19-20 14 [facility] Repository (1 source) Sulfamethoxazole / Trimethoprim Drug Allergy 05-17-20 19 [facility] Repository (2 sources) Acetaminophen / oxyCODONE Drug Allergy Unknown [facility] Other (4 sources) Latex Propensity to adverse reactions Unknown [facility] Other (2 sources) Sulfacetamide / Sulfur Drug Allergy Unknown [facility] Other (2 sources) Sulfamethoxazole / Trimethoprim Drug Allergy Unknown [facility] Other (2 sources) Codeine Drug Allergy 10-12-20 14 [facility] Repository (2 sources) Latex Drug allergy (disorder) 10-25-20 14 [facility] Repository (1 source) Sulfamethoxazole / Trimethoprim Drug Allergy 01-08-20 17 [facility] Repository (1 source) Sulfonamides (Antibiotic) Drug allergy (disorder) 01-08-20 17 [facility] Repository Problems Active Problems Problem Classification Problem [...] 04-02-2023 Creatinine [Mass/Vol] 0.80 mg/dL Normal 0.55-1.02 [facility] Comment on above: Performed By: #### L IPID, CMP, T7, TSH #### [facility] [address] [place] [address] Dr. Nga Ribeiro EGFR-AF BELIZEAN >60 Normal >=60 [facility] Comment on above: Performed By: #### L IPID, CMP, T7, TSH #### [facility] [address] [address] [address] Nga Ribeiro EGFR-NON AF BELIZEAN >60 Normal >=60 [facility] Comment on above: Performed By: #### L IPID, CMP, T7, TSH #### [facility] [address] ABD/PELV W CONon [...] WALDO BUSTAMANTE Date: 2023-04-02 15:30 Normal [facility] OCC BLD IMMUNO SCREENon OCCULT BLOOD Negative Normal NEGATIVE [facility] Comment on above: Performed By: #### O BSCRN #### [facility] [address] [place] [address] Dr. Nga Ribeiro INSULINon 10-31-2022 Insulin 8.8 uIU/mL Normal 2.6-24.9 [facility] Comment on above: Performed By: #### L IPID, CMP, T7, TSH #### [facility] [address] [place] [address] Dr. Nga Ribeiro CBC AUTO DIFFon 10-30-2022 BASO # 0.1 103/ul Normal 0.0-0.1 [facility] Comment on above: Performed By: #### L IPID, CMP, T7, TSH #### [facility] [address] [place] [address] Dr. Nga Ribeiro Basophils/100 WBC (Bld) 1.4 % Normal 0.2-2.0 [facility] Comment on above: Performed By: #### L IPID, CMP, T7, TSH #### [facility] [address] [place] [address] Dr. Nga Ribeiro EO # 0.3 103/ul Normal 0.0-0.7 [facility] Comment on above: Performed By: #### L IPID, CMP, T7, TSH #### [facility] [address] [address] [address] Nga Ribeiro Eosinophils/100 WBC (Bld) 6.3 % Normal 0.9-7.0 [facility] Comment on above: Performed By: #### L IPID, CMP, T7, TSH #### [facility] [address] [address] [address] Nga Ribeiro Erythrocyte distribution width (RBC) [Ratio] 12.7 % Normal 11.0-15.0 [facility] Comment on above: Performed By: #### L IPID, CMP, T7, TSH #### [facility] [address] [address] [address] Nga Ribeiro Hematocrit (Bld) [Volume fraction] 40.4 % Normal 36.0-48.0 [facility] Comment on above: Performed By: #### L IPID, CMP, T7, TSH #### [facility] [address] [place] [address] Dr. Nga Ribeiro Hemoglobin (Bld) [Mass/Vol] 13.8 g/dL Normal 12.0-16.0 [facility] Comment on above: Performed By: #### L IPID, CMP, T7, TSH #### [facility] [address] [address] [address] Nga Ribeiro IG # 0.01 10e3/ul Normal 0.00-0.03 [facility] Comment on above: Performed By: #### L IPID, CMP, T7, TSH #### [facility] [address] [address] [address] Nga Ribeiro IG % 0.2 % Normal 0.0-0.5 [facility] Comment on above: Performed By: #### L IPID, CMP, T7, TSH #### [facility] [address] [place] [address] Dr. Nga Ribeiro LYMPH # 1.9 103/ul Normal 1.2-3.8 [facility] Comment on above: Performed By: #### L IPID, CMP, T7, TSH #### [facility] [address] [place] [address] Dr. Nga Ribeiro Lymphocytes/100 WBC (Bld) 46.4 % Normal 20.5-60.0 [facility] Comment on above: Performed By: #### L IPID, CMP, T7, TSH #### [facility] [address] [place] [address] Dr. Nga Ribeiro MANUAL DIFF REQ NO Normal [facility] Comment on above: Performed By: #### L IPID, CMP, T7, TSH #### [facility] [address] [place] [address] Dr. Nga Ribeiro MCH (RBC) [Entitic mass] 30.6 pg Normal 26.7-34.0 [facility] Comment on above: Performed By: #### L IPID, CMP, T7, TSH #### [facility] [address] [place] [address] Dr. Nga Ribeiro MCHC (RBC) [Mass/Vol] 34.2 g/dL Normal 29.9-35.2 [facility] Comment on above: Performed By: #### L IPID, CMP, T7, TSH #### [facility] [address] [place] [address] Dr. Nga Ribeiro MCV (RBC) [Entitic vol] 89.6 fL Normal 81.0-99.0 [facility] Comment on above: Performed By: #### L IPID, CMP, T7, TSH #### [facility] [address] [place] [address] Dr. Nga Ribeiro MONO # 0.4 103/ul Normal 0.3-0.8 [facility] Comment on above: Performed By: #### L IPID, CMP, T7, TSH #### [facility] [address] [place] [address] Dr. Nga Ribeiro Monocytes/100 WBC (Bld) 9.1 % Normal 1.7-12.0 [facility] Comment on above: Performed By: #### L IPID, CMP, T7, TSH #### [facility] [address] [place] [address] Dr. Nga Ribeiro NEUT # 1.5 103/ul Normal 1.4-6.5 [facility] Comment on above: Performed By: #### L IPID, CMP, T7, TSH #### [facility] [address] [place] [address] Dr. Nga Ribeiro Neutrophils/100 WBC (Bld) 36.6 % Critically low 43.0-75.0 [facility] Comment on above: Performed By: #### L IPID, CMP, T7, TSH #### [facility] [address] [place] [address] Dr. Nga Ribeiro Platelet mean volume (Bld) [Entitic vol] 9.2 fL Critically low 9.5-13.5 [facility] Comment on above: Performed By: #### L IPID, CMP, T7, TSH #### [facility] [address] [place] [address] Dr. Nga Ribeiro PLT 194 103/ul Normal 150-450 [facility] Comment on above: Performed By: #### L IPID, CMP, T7, TSH #### [facility] [address] [place] [address] Dr. Nga Ribeiro RBC 4.51 106/ul Normal 4.20-5.40 [facility] Comment on above: Performed By: #### L IPID, CMP, T7, TSH #### [facility] [address] [place] [address] Dr. Nga Ribeiro WBC 4.2 103/ul Normal 4.0-11.0 [facility] Comment on above: Performed By: #### L IPID, CMP, T7, TSH #### [facility] [address] [place] [address] Dr. Nga Ribeiro FREE THYROXINE INDEX T7on FTI 2.66 Normal 1.30-4.50 [facility] Comment on above: Performed By: #### L IPID, CMP, T7, TSH #### [facility] [address] [place] [address] Dr. Nga Ribeiro T3U 36.0 % Normal 30.0-39.0 [facility] Comment on above: Performed By: #### L IPID, CMP, T7, TSH #### [facility] [address] [address] [address] Nga Ribeiro T4 [Mass/Vol] 7.40 ug/dL Normal 4.80-13.90 [facility] Comment on above: Performed By: #### L IPID, CMP, T7, TSH #### [facility] [address] [address] [address] Nga Ribeiro GLYCOHEMOGLOBIN A1Con 2021 ADA RECOMMENDATION SEE BELOW Normal [facility] Comment on above: Result Comment: ADA RECOMMENDED LIMIT 4.0 - 6.0 ADA THERAPEUTIC TARGET < 7.0 ACTION SUGGESTED > 7.0 Performed By: #### A 1C #### [facility] [address] [address] [address] Nga Ribeiro Glucose [Mass/Vol] 94 mg/dL Normal [facility] Comment on above: Performed By: #### A 1C #### [facility] [address] [address] [address] Nga Ribeiro HbA1c (Bld) [Mass fraction] 4.9 % Normal 4.5-6.2 [facility] Comment on above: Performed By: #### A 1C #### [facility] [address] [address] [address] Nga Ribeiro IRONon 10-30-2022 Iron [Mass/Vol] 119.0 ug/dL Normal 50.0-170.0 [facility] Comment on above: Performed By: #### I CHARISMA #### [facility] [address] [address] [address] Nga Ribeiro LIPID PROFILEon 10-30-2022 CHOL-HDL RATIO NORM SEE BELOW Normal [facility] Comment on above: Result Comment: 3.3 - 4.4 LOW RISK 4.4 - 7.1 AVERAGE RISK 7.1 - 11.0 MODERATE RISK >11.0 HIGH RISK Performed By: #### L IPID, CMP, T7, TSH #### [facility] [address] [address] [address] Nga Ribeiro Cholesterol [Mass/Vol] 201 mg/dL Critically high <=200 [facility] Comment on above: Performed By: #### L IPID, CMP, T7, TSH #### [facility] [address] [address] [address] Nga Ribeiro Cholesterol in HDL [Mass/Vol] 78 mg/dL Critically high 40-60 [facility] Comment on above: Performed By: #### L IPID, CMP, T7, TSH #### [facility] [address] [address] [address] Nga Ribeiro Cholesterol in LDL [Mass/Vol] 108.8 mg/dL Normal [facility] Comment on above: Performed By: #### L IPID, CMP, T7, TSH #### [facility] [address] [address] [address] Nga Ribeiro Cholesterol.total/Ch olesterol in HDL [Mass ratio] 2.6 {ratio} Normal [facility] Comment on above: Performed By: #### L IPID, CMP, T7, TSH #### [facility] [address] [address] [address] Nga Ribeiro HDL NORMAL > or = 60 mg/dl - LO W CARDIOVASCULAR RISK <40 mg/dl - HIGH CARDIOVASCULAR RISK Normal [facility] Comment on above: Performed By: #### L IPID, CMP, T7, TSH #### [facility] [address] [address] [address] Nga Ribeiro LDL CALC NORMAL SEE BELOW Normal [facility] Comment on above: Result Comment: <100 mg/dl OPTIMAL 100 - 129 mg/dl NEAR OR ABOVE OPTIMAL 130 - 159 mg/dl BORDERLINE HIGH 160 - 189 mg/dl HIGH >190 mg/dl VERY HIGH Performed By: #### L IPID, CMP, T7, TSH #### [facility] [address] [address] [address] Nga Ribeiro Triglyceride [Mass/Vol] 71 mg/dL Normal <=150 [facility] Comment on above: Performed By: #### L IPID, CMP, T7, TSH #### [facility] [address] [address] [address] Nga Ribeiro VLDL CALC 14.2 mg/dL Normal [facility] Comment on above: Performed By: #### L IPID, CMP, T7, TSH #### [facility] [address] [address] [address] Nga Ribeiro PROF 14(COMP METB)on 022 Albumin [Mass/Vol] 3.8 g/dL Normal 3.4-5.0 [facility] Comment on above: Performed By: #### L IPID, CMP, T7, TSH #### [facility] [address] [address] [address] Nga Ribeiro Albumin/Globulin [Mass ratio] 1.1 {ratio} Normal [facility] Comment on above: Performed By: #### L IPID, CMP, T7, TSH #### [facility] [address] [place] [address] Dr. Nga Ribeiro ALP [Catalytic activity/Vol] 91 U/L Normal 46-116 [facility] Comment on above: Performed By: #### L IPID, CMP, T7, TSH #### [facility] [address] [place] [address] Dr. Nga Ribeiro ALT [Catalytic activity/Vol] 19 U/L Normal 14-59 [facility] Comment on above: Performed By: #### L IPID, CMP, T7, TSH #### [facility] [address] [address] [address] Nga Ribeiro Anion gap [Moles/Vol] 9.2 mmol/L Normal [facility] Comment on above: Performed By: #### L IPID, CMP, T7, TSH #### [facility] [address] [address] [address] Nga Ribeiro AST [Catalytic activity/Vol] 18 U/L Normal 15-37 [facility] Comment on above: Performed By: #### L IPID, CMP, T7, TSH #### [facility] [address] [place] [address] Dr. Nga Ribeiro Bilirubin [Mass/Vol] 0.5 mg/dL Normal 0.2-1.0 [facility] Comment on above: Performed By: #### L IPID, CMP, T7, TSH #### [facility] [address] [place] [address] Dr. Nga Ribeiro Calcium [Mass/Vol] 9.5 mg/dL Normal 8.5-10.1 [facility] Comment on above: Performed By: #### L IPID, CMP, T7, TSH #### [facility] [address] [place] [address] Dr. Nga Ribeiro Chloride [Moles/Vol] 105 mmol/L Normal 98-107 [facility] Comment on above: Performed By: #### L IPID, CMP, T7, TSH #### [facility] [address] [place] [address] Dr. Nga Ribeiro CO2 [Moles/Vol] 29.5 mmol/L Normal 21.0-32.0 [facility] Comment on above: Performed By: #### L IPID, CMP, T7, TSH #### [facility] [address] [place] [address] Dr. Nga Ribeiro Creatinine [Mass/Vol] 0.68 mg/dL Normal 0.55-1.02 [facility] Comment on above: Performed By: #### L IPID, CMP, T7, TSH #### [facility] [address] [place] [address] Dr. Nga Ribeiro EGFR-AF BELIZEAN >60 Normal >=60 [facility] Comment on above: Performed By: #### L IPID, CMP, T7, TSH #### [facility] [address] [place] [address] Dr. Nga Ribeiro EGFR-NON AF BELIZEAN >60 Normal >=60 [facility] Comment on above: Performed By: #### L IPID, CMP, T7, TSH #### [facility] [address] [place] [address] Dr. Nga Ribeiro Globulin (S) [Mass/Vol] 3.6 g/dL Normal [facility] Comment on above: Performed By: #### L IPID, CMP, T7, TSH #### [facility] [address] [address] [address] Nga Ribeiro Glucose [Mass/Vol] 100 mg/dL Normal 74-106 [facility] Comment on above: Performed By: #### L IPID, CMP, T7, TSH #### [facility] [address] [place] [address] Dr. Nga Ribeiro Potassium [Moles/Vol] 4.7 mmol/L Normal 3.5-5.1 [facility] Comment on above: Performed By: #### L IPID, CMP, T7, TSH #### [facility] [address] [place] [address] Dr. Nga Ribeiro Protein [Mass/Vol] 7.4 g/dL Normal 6.4-8.2 [facility] Comment on above: Performed By: #### L IPID, CMP, T7, TSH #### [facility] [address] [place] [address] Dr. Nga Ribeiro Sodium [Moles/Vol] 139 mmol/L Normal 136-145 [facility] Comment on above: Performed By: #### L IPID, CMP, T7, TSH #### [facility] [address] [place] [address] Dr. Nga Ribeiro Urea nitrogen [Mass/Vol] 19.0 mg/dL Critically high 7.0-18.0 [facility] Comment on above: Performed By: #### L IPID, CMP, T7, TSH #### [facility] [address] [place] [address] Dr. Nga Ribeiro Urea nitrogen/Creatinine [Mass ratio] 27.9 mg/mg Normal [facility] Comment on above: Performed By: #### L IPID, CMP, T7, TSH #### [facility] [address] [place] [address] Dr. Nga Ribeiro TSHon 10-30-2022 TSH 0.871 uIU/mL Normal 0.358-3.740 [facility] Comment on above: Performed By: #### L IPID, CMP, T7, TSH #### [facility] [address] [place] [address] Dr. Nga Ribeiro Covid-19 PCR (CVDTB)on 10-01 SARS-CoV-2 (COVID-19) RNA VALNETINA+probe Ql (Unsp spec) Not detected Normal NOT DETECTED [facility] Comment on above: Result Comment: When diagnostic [...] for this test is supported by the [employer] of [employer]'s declaration that [...] used). Performed By: #### C VDTBH #### [facility] [address] [place] [address] Dr. Nga Ribeiro INFLUENZA A AND B AGon 10-22 INFLUANEGH SEE BELOW Normal [facility] Comment on above: Result Comment: Nega tive for Flu A protein angiten. Infection due to Flu A cannot be ruled out. Flu A angiten in the sample may be below the detection limit of the test. Performed By: #### L IPID, CMP, T7, TSH #### [facility] [address] [place] [address] Dr. Nga Ribeiro INFLUBNEG SEE BELOW Normal [facility] Comment on above: Result Comment: Nega tive for Flu B protein antigen. Infection due to Flu B cannot be ruled out. Flu B antigen in the sample may be below the detection limit of the test. Performed By: #### L IPID, CMP, T7, TSH #### [facility] [address] [place] [address] Dr. Nga Ribeiro INFLUENZA A AG Negative Normal NEGATIVE SEE COMMENT [facility] Comment on above: Performed By: #### L IPID, CMP, T7, TSH #### [facility] [address], [place] [address] Dr. Nga Ribeiro INFLUENZA B AG Negative Normal NEGATIVE SEE COMMENT [facility] Comment on above: Performed By: #### L IPID, CMP, T7, TSH #### [facility] [address], [place] [address] Dr. Nga Ribeiro INTERNAL CONTROLS Within Normal Limits Normal Wi thin Normal Limits [facility] Comment on above: Performed By: #### L IPID, CMP, T7, TSH #### [facility] [address] [place], [place] [address] Dr. Nga Ribeiro MRI Shoulder w/o Lefton [...] by Maulik Stewart on 10/02/2022 1335 Normal [facility] Authorization Coordinator MG MAMM SCREEN 3D ZARI CADon 06-16-2022 MG MAMM SCREEN 3D ZARI CAD Patient: CONY MATOS Exam Date: 06/16/2022 : 1960 Gender:F Ordering : DR ANDREW ORTEGA . Admission #: [id number] Family : Order #: [id number] CLICK HERE TO VIEW EXAM RADIOLOGY REPORT [...] No Treatments Excision Family Cancers None LOCATION: [facility] BREAST COMPOSITION: Scattered areas fibroglandular density. FINDINGS: [...] Nixon M.D. on 06/16/2022 at 13:28 Normal [facility] PAP ACOG PANEL 2: 30 to 65on 05-30-2022 . . Normal [facility] Comment on above: Result Comment: Perf ormed at: [facility] Performed By: #### L IPID, CMP, T7, TSH #### [facility] [address] [address] [address] Nga Ribeiro Age Gdln ACOG Testing 30-65 Normal [facility] Comment on above: Performed By: #### L IPID, CMP, T7, TSH #### [facility] [address] [place], [place] [address] Dr. Nga Ribeiro DIAGNOSIS: Comment Normal [facility] Comment on above: Result Comment: UNSA TISFACTORY FOR EVALUATION. Performed at: [facility] Performed By: #### L IPID, CMP, T7, TSH #### [facility] [address] [place], [place] [address] Dr. Nga Ribeiro HPV Aptima Negative Normal Negative [facility] Comment on above: Result Comment: This nucleic acid amplification test detects fourteen high-risk HPV types (16,18,31,33,35,39,45,51,52,56,58,59,66,68) without differentiation. Performed at: =G Performed By: #### L IPID, CMP, T7, TSH #### [facility] [address] [address] [address] Nga Ribeiro Methodology: Comment Normal [facility] Comment on above: Result Comment: This liquid based ThinPrep(R) pap test was screened with the use of an image guided system. Performed at: [facility] Performed By: #### L IPID, CMP, T7, TSH #### [facility] [address] [address] [address] Nga Ribeiro Note: Comment Normal [facility] Comment on above: Result Comment: The Pap [...] #### L IPID, CMP, T7, TSH #### [facility] [address] [address] [address] Nga Ribeiro Performed by: Comment Normal [facility] Comment on above: Result Comment: Kolton Carpio, Cruise Staff Member (ASCP) Performed at: [facility] Performed By: #### L IPID, CMP, T7, TSH #### [facility] [address] [address] [address] Nga Ribeiro QC reviewed by: Comment Normal [facility] Comment on above: Result Comment: Adore Sloan, Supervisory Cruise Staff Member (ASCP) Performed at: [facility] Performed By: #### L IPID, CMP, T7, TSH #### [facility] [address] [address] [address] Nga Ribeiro Recommendation: Comment Normal [facility] Comment on above: Result Comment: Sugg est follow up as clinically appropriate. Performed at: WB Performed By: #### L IPID, CMP, T7, TSH #### [facility] [address] [address] [address] Nga Ribeiro Specimen adequacy: Comment Normal [facility] Comment on above: Result Comment: Spec imen processed and examined but unsatisfactory for evaluation of epithelial abnormality because of insufficient cellularity. Performed at: [facility] Performed By: #### L IPID, CMP, T7, TSH #### [facility] [address] [place] [id number] [address] Nga Ribeiro Coding Summary.on 12-30-2021 Coding Summary. CD:[id number] Gh 0bWw+PGhlYWQ+EF4XEGJwU 20kdEOkiQ4UE7lIHG9GZCR UHVXEGC8SLP1bjES1FBwiI 2VybiAv YqbjkKEbRT36RZx6SCO0qA abWAllnP7orHKsX7l5UkXs LL42rS98FKruYGCkFrW2Po ZpbjsgbWFy Z4plDnRmlEWcLzl+PHRhYm xlIHdpZHRoPScxMDAlJyBz nAmlTN2kNi0rCPPnNVKtpJ xhcHNlOiBj y1jyRCFlRHymHL5yzOioN9 LmsZO4XHHjm0k9Wc63nBV+ KRFnNOY5oDtjMXucw755Fw Rgm9pwLDM1 fXEdZRbbMMA7J70pe4J5EK EeFHXsDWM8lJS7bF9vlDmd raghY6LiuCFkGkK3CAZ7dU ZnuV4okEic ganuuY0wMwt+G66PKM2KVE FXKD6LWmx7I9BjInixqEQ+ LG31IBDvCS81cJWaoCLpk4 bzyMk4IlFd FGVwSJG3lCmgVHztc8CkKC TiF97soKCzz6Q3LWTfuWcu bKZhLmGkoAS0kS8qFBvlny gli0sfjhtj Kgxwg3anfp44lR22H73cJI vuZVLhTDX0VSSoPDZblShk qz3hsJ2uRe7+VWiac7nur2 webCo7WaOu UAUkpuLjeAejPMD4g2SwJt 08X8KpfUrcy6IvEps1oo56 vJRew3C7bUV0HXxbTHZapV 2aMZlcShF7 FKAnNcJtwT14bMYbYYgdSk 5dmZwcuDnuFI9dMEEtulew CFWsaC5dSEKvlSXkkTwjSQ 4wNTBpbjtm r759McCjCBW8HHByaQGrA7 BiwZ5cEyFrFWIbVESlV1Xb aNXqOFfaL659KExgVwN2CN IhuhZrL0Lf NTBciGasIbA9r9Q3Aw4Ss9 PvrrppHLN8JDkdOLJqKaJs OmLiKiV1O5FmMcr6BFJjoR hrJP3cT4Zw EUClnfsusonaeJK3WAGqQY XvzI70kPSwPAifQq8eu0J5 n818DUOiEAMrzU62Ow4sxE ogMTBwdCBU jS9iyufgj3egocqlNfHrDG CtMLs4RBa9TVYghTwcAlOr QSG7KzI1IJD8lQBiuK2pkX mqawcvdX0e Oyc+E38egM0oJQF5EDI2fv iyHWWuzhVyOG80OC05D7Uh PjwvdGFibGU+PGRpdiBzdH kkYY0rCcNg u1svh7EbACebF3KiCZIsNF elCak0GLPzDKJ7wID6rP8x MIKrIFcnw2X2eGJ8N1Wbou Kamm2lc1ao MIDcZBiqD34cxGJeq8G9IN IxtCW7BIWdoTvlLrCmpC08 Oyc+IUOyzVbye4PyOzmnc9 fer2zlqSx4 IeRuMGIdgpJdhRgqVZK3m2 TdLi01D76rAPbmUXHqHJCm AOYuVQFdfStioe2efG7kIi 8+PGNvbCB3 yMZ5uU9nCUKzAbX2TDgvD8 57WiZcwXXkTpcbx9yqu7lj zSh5UoMqXEMuqpOxmVwlWV Z7t8BxEj79 X28bBYydBDKpXNBfPPSaNX AvjPnmkv1jkG6wWd7+PC9j y9dpsm00xU29jGJ+PHRkIH Y7cEbnYUwm DMTrmI6jVHloGtF1ZSMaMe VxlO12pBUuRSiiCq3wnZvh xLfsQW6dCWMommhko785Xn Bgl7maTYJc vRTzNMlvNJI7O39bn4S0IZ ObDQYfXYN2jSA5cT5nrDmf bjogbGVmdDsgdmVydGljYW snIMvtW658 IHRvcDsnPlBhdGllbnQgTm RpSVd0G4AzLet5JILbmFnr PD0drUVxRKhlCj3zeUcygE obHO9cAJZr pyitj331GzYax0dpUKGnfX VbYCziFUT0L60ed5D8KDXu IFAgZNX3xTH7hA1jwQptpe ogbGVmdDsg ksRrcWycAEhfWHbxY957SB RvcDsnPkJpcnRoIERhdGU6 YL67AO13wLNin9Z1kFY2L8 BhZGRpbmct mvdlhWQ5QPGqDVGnxT38Tc 4erTgnIf0uLBHrNNW2CSWt dPIeE8RxyK8cMiJrUXZkXJ TcA2KlcNVm ZBcsG303UEfoUnM4WCPkdy BsC4EcMNHhcPvaIoM6t8D0 Bs2XY5X5MO31VK97cCNva8 O3mIM4Q9Np THWktrwgyikavWP5MEOyJI QxmH65Wq1qiCrwLc7zJOXp JGP9PUDbwDHpQ0HtmV0mSp AjMDAwMDAw D8IucTVfDJzgB391BPqsXg S8YZTgnlPaT8EgPJLamHmy FgG2d6X9Bz4PLXd5KY07JM 48iJUkg0Q6 dAH9L2JtKKRxygzqqzgulA C6PTOyMAQloJ62Wx3eoLst Ak6eEWOrRET8XVObxKSqN9 RigH2iIdTf PHDbZOCrI1FnyIBlXMiuE9 22VCdfLfL5WNWixfBdL8Gr XJKtxAuuFeM2o6K2Gg3LNC LlDN63IQY9 nEK8KI68XE33X8ZsMvijnL FibGU+PHRhYmxlIHdpZHRo NPivZWAnGrVkdChpJV8hRf 9yZGVyLWNv gSvsqEOmMxNrs0alONQdNL koXC7ckPuvY5DgcPW5YXGk j8s8Xu91D99qA0JzzYU+PG ZhgPM6hNH4 rA2uGsGuXvD0OYhtW221If ObbFTfPpxbs5kbb8tucTv7 SvF6TULqcqIkcMgrIDJ8d7 VmTh88B42e IHdpZHRoPSIxNSUiIHZhbG ssdh3jyN2vGj1+PGNvbCB3 iVL5lL8gDtTrIhZ9RZpjK3 49InRvcCIv Cmxvk6vve7wqeKs3YgYdMM MdbmAqcAvnORG1x0JvIf86 T4IdjUiph1BqIes8uz94fQ Xqt0T3iMT4 X8IxUYXirbazhNCztUlmNR 8jBINvqnkgDHDloK1sUDSk A5a5OmCnJpE6TWssE8Mgwa C2YDJvcCEm VEjdHSZ9B89pd8M3OEZcJR HxSLG3nAK9uD5tkKtjkqnd bGVmdDsgdmVydGljYWwtYW ytG625CYGm eArhUVNvzE4jOAFycLVxaH loUP4jAZVurdooIj1YLUWV UiwgQkVUVFkgTDwvdGQ+PH SvUAY2jCvr KZlxTEPqvW2tZYEcA0f5Vb NsHzM0IOsxU2KyFQGpbsxx Rc53pC0gCwAwZeF8VAegJ0 QionZ9XOWh jXBaDGeyPVW0V33hk1Y8VD AbTXGkQSI6pKZ8uM1mfAhh bjogbGVmdDsgdmVydGljYW tcDXudQ331 JFVryLwgViMlJyU1CvB9Nv K8O0AfYde9VPFmmLvpDU6r pRNuTShrYr6exNogeZnkWW 4wNTBpbjtw JBWchW5wFFFvnLMxzLbkDQ 8nERNdmsnir468RuBcCMW2 PUSdnLTjX6SpdN8aOpClNV VmLHEsF5Al xCLrBFsjD090TUqxBmT5JZ UzrpDzD1KoVRWfbOrzHgT3 z1P4Fm85XYFBCIGhqbgfzR Q+PHRkIHN0 eLggRXqpYRKpkZ1qTTPmK6 w7VaQwLbT8KDohC0YwUFRi hvfdLy18wI9xBlIkRaD7YN lyK0PbgeH9 CGJpoVVsPEuxPLO6I59kp4 U0NXMwWBAcRZL4zFT0cK0m bGlnbjogbGVmdDsgdmVydG ljYWwtYWxp L478ANOoxWzfWbRwmYMaKR wvdGQ+FUAuUHX7tNgtVDnh BPWvvQ9uFZGaN6f3AwLsHb Z3NUemM6Ui VPOvwwlbGn91qE8eFqNmOg D4HNidU9WoniE4FVZmkCAy GLvcQAV6X55id8G7VLMcMQ LyONZ2rLF2 mI9ofUwzydmyePSbsGyxgc OgqQddICduMXvuC381QPFu eQhqOl78qLXobYqgkyR6U9 RkPjwvdHI+ ZL77RHUtRB35hFLwoKVii3 dfyAc2WtXmCWEjAXG2vJct FIqpc8LuCDDbJ36swFNrz3 N2VETgtEog aLZiQfDcqPW9mR2mFQipux kay1epzhqcVlcvy9kjer14 sE56D49kSFfuFMWfPLJpVO UiIHZhbGln pl9riA7nFq8+ZZKvqLV7uW A4oN8vQrHnRoY3ADcuM950 JqPrvGGoRtixl3lro1xiyP b9JrQuRRDz grEsaIcmDRC5t3KtWu32A4 9sIHdpZHRoPSIyMCUiIHZh cXtnlo4dwT8lJb2+PC9jb2 dfrg52sJ07 dHI+STHeDHJ3oBpjNSzvIS LhaC0tDWqdNkV6NKGtDpJi dZ07nMBgLRqlJi8hxCczkB rxEQ5kDSHn vakik089NaSzq4mbYHEwvQ OrAZofZVZ7E54st8R4JIYn PZOcONL4qWZ3iK3vzUracc ogbGVmdDsg egAowVraHUkdPLlnO715GN VjqBhvOpFarGDhH4syjsMN BH6dDkfdbIK+FJYtXXW3xW xlPSdwYWRk gE5gDIRyF9k9QyHjJtQ6XY veY0FzbeF8TJXmfJMqHEIi sJRHfZ8ekczfp9hvheecFg AwMDAwMDt0 MPj0RJOhwGkmBjZtGPG4Qc G8AFP9lHEwtL2wiZzbdgxl xN4gCnr+RklOOjwvdGQ+PH SvECN8aDkv IJkeNWQbxP8cKCQrU4c2Oz NnOdN4PPykD3LsraJ0ITPs tAGyJIMjtPVPwL4xdayxo4 xvcjogIzAw NQDaZRh5TXl0ZMTxgTuhFn SlIPW7HvJ7YZF1dXTvqM1d eEedeqwnvZ7sBct+TVJOOj wvdGQ+PHRk JTS2pVthNJlcXAHyfS9vOB HzW2s8DgXjNoE8ZYrxY1Kd liU4LNPdgQNlTRDgkEJOvB 6bldabq3bh rgmnDmQeARIgQPx3PYl9BW AihHkiOcVhIHI4WfB2RDB4 mULthJ2zzHyytxhhtL8kIh c+FTO9WAF8 CW85QC02Q4ThAxkhzPJeaZ U+PHRhYmxlIHdpZHRoPScx PFDiYsNaaCamCM2rQm0xWR VyLWNvbGxh cHNl (more content not included)... Normal [facility] Coding Summary.on 12-27-2021 Coding Summary. CD:[id number]:[id number] Gh 0bWw+PGhlYWQ+FC7WTQRwB 06ohIAeqK8OL4fIZM6PIWZ CQBMSRV9KFT8xlSQ6QXyjI 2VybiAv UjzkqHMnOS83WYb8IKS7xF kaBWrelK4mjZKbK8w1EoSb FT65cS54ZRcvFPZrJzR4Cg ZpbjsgbWFy U6psNpNkpFQbEph+PHRhYm xlIHdpZHRoPScxMDAlJyBz mFwuEK1pDv7qRVIrQPWqmG xhcHNlOiBj v6fhHWLoRVckHG7mgHeyP9 DceXC4LSVfd3u3Is94pII+ TGYoJZA5hQtrRUaxq962Hj Yge2cdMOB3 jEXlENtjHYK9C34ju1M7ZU ImBEOlFRM9wRG2cN1jcUzr tjamR1RehBEpErE5UAZ7tG MqrV5wsCpq gwaydA7hPbk+E20ZVF8CFD EACJ7QQwb4Z9LkAhekwOK+ YY06YUNcIL27vIDidUEys6 npoAq2GlLq AJHtEUB5gKuyFFlsu5BsSF WzJ08cnBAww4E7BCShnCpn aYXvNhSmzFB5nF8uOQtmbs niv7sdcqyd Nqkek4vvgx67jH15V14aBY lxHHTcGOO0UOAyKFWlnYxd ml8ajD1lUs4+UHtzk4slb0 airGk8IzBm NKGqbhOffYpgPVR6v3CsRn 72T0ZjcDvbm0AxLty5hr75 aAMfm9N3eOA4BPrmGIDgsJ 0iEEafTcA7 IEAaMoMwzH14zNAbRKoxYb 7vyYlbeOzfSB7fQHNhjdrt DIPluF6lSOYmpEUezOmiCX 4wNTBpbjtm e006WnXbKUS3GMRdiXFuU7 PbdW8qRkIaIBAnOAJwZ1Zc eJGmEYwrY836RCnnVxO0LZ XeyoHuK2Fm FGTrlMrwVnY9j6T0Bq6Bo8 RfwflhXFA6URscNOIzHhN3 AcRnIwF5S4BjTwr9RMLjgO lqCD1mX7Wr LEWukydlsueehBW6DFHsGV VhqG51aYRdINlvYb7kk4Z5 a976KMPzPIJcuI43Lv2pjP ogMTBwdCBU xF0egutqo9afftnnReZhJE AjCWk0AJq8GUEvrAiuDeTm FWV2ArT3DBQ2mXCxxB2kmB vskylguW0c Oyc+X70gdP1eDUT0NDB8yt wiPDYhgmYsDR50AE95M9Zn PjwvdGFibGU+PGRpdiBzdH lrVU9aDhCh x7znn9GwENfjM9EyWWUoHI vfHfv7XRKqLFS7gEB3uU6u ZQDgHDbsw4X7gLU8O5Jotp Xyud9fv3ha XPNpNWoeE35liMNqy4A1HM ZrxCI2HAPibGukInJraG83 Oyc+OCUbjRnrc0ZjEkvzs9 egm2tegSh2 MhIsCJNyosZptRduCVC0n6 ZpOe29V36fYNxiNONyNFVd AOAlCAVuiDpqzi5lfN2oBc 8+PGNvbCB3 bWN5bF9nZCTsGyX9MNbeK4 42ObWytARkYdgfk5oso1cv uKo7AbZzUVIwinTwoNjxNZ M0t1NwWa83 E22oSIevMRMbXRJzGFChSY ZkdFfkln3hyM2yYd4+PC9j t3pszt74aK30bXH+PHRkIH N6zLdsEFoq EXIneW6aCPneMzR2CZOsVn RfmQ64oTLuBIsaCv9deZng vPjhJA5nTPAlrfxtc455Gx Duo1dsULSm sWBuAHrpRFD8U04lh6B6UH OuPTZmPFF4vXV5iS1xmZgh bjogbGVmdDsgdmVydGljYW gwVJpvS392 IHRvcDsnPlBhdGllbnQgTm EcFOb6H1CtZah2KKOhcQsw HK6hzFUtPLvoKa4bhJgojD qgSU0qWVHn cygcw565WaMvg0wvABOfyH GwNFxiOZQ3J15km5O5TVIm AGQeLGD2nCD1iD4ygXkpqp ogbGVmdDsg niWdqQrmCBecCZslJ737RC RvcDsnPkJpcnRoIERhdGU6 CP43WF58sUZym7A2yPB3J3 BhZGRpbmct fraqpFR3RIIlCANszQ92Pq 8fhRqiYm8eJSQaKON8LKOk uFRdT6XoqE2cRxPgCFHyWV RpR8WphBUc TSgzB683DRquDoF5PMRpcv JfV4BrNYYylGcaDgW4c7J3 Yw9EG7J4JT30VY34qZFwh1 Z8fWJ1D4Qh HUVtyxugqlfogKC4NHKkDU FdvM28Pq1okAtmSr3zQKNh TRZ7YYErmOUfX1FirB9pFc AjMDAwMDAw C9DqrZFrMQdxC622OCvlSw G1TWEqrkNvB5EnHGKhrPkg LgH5a2B7Ao9CEOr9JA96WI 77dXFgg2K4 kVY0E7MbFMDckfoockstiA I1INHmWYGdgK77Sg0qrUvd Tu9cJNSqTBO2QGWiwLHxC1 QxyZ3fVhLp QSQwVHUgM9AbiEAqEJknC5 98CQwyQjQ0KJOxtzEvA2Ge MZAaeXimVkC5v1L5Dd6APH OwRW36SOQ3 dBA5DN33HC08T8DpNzgrwU FibGU+PHRhYmxlIHdpZHRo PYtbOOFaMdWutTzaCY7pNv 9yZGVyLWNv yEwrjZJhVuVmz5seUWUcYC ytPU7ylHesH6LdhJJ9ELTl f3m3Il95H24kK3DjhRH+PG RwfJE8rYC9 yW7nGgHgVyL5YJfmQ202Fl IceLKyAtnrk8rqw7cazXs8 TcL1OFGcvoYpsWbkAVD6e4 IzOg29S73f IHdpZHRoPSIxNSUiIHZhbG uujy7vrB2eTs7+PGNvbCB3 qFP3wJ5iCeKmYnB8MCijY6 49InRvcCIv Jmvwb0daq5doiEg5RcHcHP UxzaPokGhsPNO6e6QzGc06 J0SdeJdvq6PsCia2hz35sD Edq4Q7iEE3 I6RqZHLbcxzpuLEsxXggZA 2zRYCmdpieJQUotN6iKOOn D4y8OqSrIfY0VEtjY8Vsfb D5MFXrwWJs XFsgHBD1U41ud8C8ECMpBS RvEUU3fCE0iK0cgNwmjwwp bGVmdDsgdmVydGljYWwtYW adV796VKAm lYxqJSQyyG7kQAEtmKWktP ipZR8yIDMpwipbDb1TXCVL UiwgQkVUVFkgTDwvdGQ+PH TuBPD1aAju GFhmCNZczI9iSSJcA1f7Ux BzZsH2ATtmT9KgRPGaspgj Uf53oA8uSkXoLtT9TIgwL5 ZcpfC9OOPx cCWwOWogQSA9J58wp3J5SL EaNEDdBUH4wCV2bG3rqVns bjogbGVmdDsgdmVydGljYW qjUDreK538 EZQakFeaObZmSrQ6XhN6Fp Q8B3WqYeg9BHGqdUinYT6w kJXpLAfxKk1zhXpkcAeuSF 4wNTBpbjtw QPQsgC0xZCAhrYOeoNilIJ 6eEZTpdnnmi899CiAiAEG4 QUIkwSLwV6UlfM5jNvFvXS TwFDYhP9Sz kPGtGEhxH729WWdxAtT0LU WsnzTwF4WsDNOigJvuTfL9 d1T8Nm63HVRZHONtomkxnR Q+PHRkIHN0 oWosNCqwNUNgdM2dPKXqM4 m7VlEwNjF3XVtrE1YuTDWm zsapPd26qR3gFkJhSwN9WP txN2QymxN7 IQCmkEEePNozTCQ4W92ql8 I2SYDcDEMiXKQ4zXD1xE3k bGlnbjogbGVmdDsgdmVydG ljYWwtYWxp A789DRYqgVuaSfEcyDRmQD wvdGQ+SLHwKLA5yVzrUHye YLNhsU1sCFXbF9y0IiNsFq O0OOkpZ6Jt AXQgeneiJz33sK0rDhAtKk E1CHmrE1JgqgJ9SFFlmKUc TXzaLGU3O41ss1A2AFYjLU KvTPM5dUW5 gA6zrBhpmmrpsKNoqTzghj ZkmPyqZFwsJDpkO508ZQZn nIwgQa38uKOxtXxtxbT6C1 RkPjwvdHI+ MS58IUEfVX36sTHdjPApc4 dnmPr4NbCuTTZoERI7sDtf MBack4PhKAXgQ58zeLEbs9 P2IGTgdRak xTFwXoTxqSG2cG3qMZafem jnt5wotqdnQemir5qlfz40 tL59B85sHFufKIQhCENvGO UiIHZhbGln nu9ldF1nQf8+JOMjwCL8lK V6eB6rCqQoQoN4KXgiZ438 KwTllOYfJxeky5luj8iekC m0DfAsGMVa unRrhOgmFZQ8e6ZpQj20K6 9sIHdpZHRoPSIyMCUiIHZh xAsbyk7kaZ3rIz3+PC9jb2 zghb46xS37 dHI+OHHfCPH6xEmxZEzcAY LtiI2bCKpoIwK4EAYgZkDe jL52xNGbONoePt8reJgkwK ebUR8kAMYi ljczx502QeFek6anHVAgsL GoVExlGZY4U30hl3D2RRBu YOGgIWY6zVB4pG5qkYjpls ogbGVmdDsg dhDbdQtcGRmnXAzuP486ED WbiHmnVrDrdFGqM1aaklZA LH5lIyrxrXE+EREaRYM1aT xlPSdwYWRk cH2fKMWvY6a8VpCsQiC9PP rnS2YozsU0LPPnaGMbIHCt bMOTjA0hwxnzx0avklllTj AwMDAwMDt0 JVm1DWNiiBiyIxBsZOD8Hx M3JHB3wOUpsK5luDvgiaif gD9aHvu+RklOOjwvdGQ+PH EpJWQ0eKey UQmdTPFewH2cWBNlF9k5Qh AqIcQ4LUjoY9DtviB0SHRq sEHpMJFlbLPIwH3dwgfny8 xvcjogIzAw AXIiKOa1WGh6BAJrgFlgTt EkKRB7AtK0BHP9qXExwR1r iPvtkcvzbM7fXie+TVJOOj wvdGQ+PHRk HMO4tOatCVbkLKDdpD9vFX VjD7n1QrXtTrE9NVyjD8Fk nvK8EKVqtKLnNUDlqIAAlM 2qsiqrt7ss foccAbYyVXYnGXz6GWu9FM ZxhMnrAxChLGQ7EeS2GPR7 cPRjyZ9lxBfagkrgxG8uZp c+XBM3DLY3 LW81KE89V1LuTemaxXGvoX U+PHRhYmxlIHdpZHRoPScx DXHfZfFvpAnvSC9qTi9cVO VyLWNvbGxh cHNl (more content not included)... Normal [facility] Consent for Treatmenton 12-01 Consent for Treatment [id number]#1.0 0CD:127 Normal [facility] BMPon 12-19-2021 Anion gap [Moles/Vol] 14 mmol/L Normal -16 [facility] Comment on above: Performed By: #### 1 [id number], [id number] #### [facility] [address] [place] [address] Calcium [Mass/Vol] 9.6 mg/dL Normal 8.9-11.1 [facility] Comment on above: Performed By: #### 1 [id number], [id number], [id number] #### [facility] [address] [place] [address] Chloride [Moles/Vol] 105 mmol/L Normal 101-111 [facility] Comment on above: Performed By: #### 1 [id number], [id number], [id number] #### [facility] [address] [place] [address] CO2 [Moles/Vol] 27 mmol/L Normal 21-31 [facility] Comment on above: Performed By: #### 1 [id number], [id number], [id number] #### [facility] [address] [place] [address] Creatinine [Mass/Vol] 0.9 mg/dL Normal 0.5-1.3 [facility] Comment on above: Performed By: #### 1 [id number], [id number], [id number] #### [facility] [address] [place] [address] Glucose [Mass/Vol] 95 mg/dL Normal 55-199 [facility] Comment on above: Result Comment: If t his glucose result represents a fasting glucose, interpretation should refer to the following reference range: 55-99 mg/dL Performed By: #### 1 [id number], [id number], [id number] #### [facility] [address] [place] [address] Potassium [Moles/Vol] 4.3 mmol/L Normal 3.5-5.3 [facility] Comment on above: Performed By: #### 1 [id number], [id number], [id number] #### [facility] [address] [place] [address] Sodium [Moles/Vol] 142 mmol/L Normal 135-145 [facility] Comment on above: Performed By: #### 1 [id number], 1083626, 3796119 #### [facility] [address] [place] [address] Urea nitrogen [Mass/Vol] 23 mg/dL High 5-21 [facility] Comment on above: Performed By: #### 1 [id number], 7875077, 1255049 #### [facility] [address] [place] [address] Urea nitrogen/Creatinine [Mass ratio] 26 No Units High 09-18 [facility] Comment on above: Performed By: #### 1 [id number], 2983661, [id number] #### [facility] [address] [place] [address] CBC w/Indiceson 12-19-2021 Erythrocyte distribution width (RBC) [Ratio] 13.3 % Normal 10.9-14.2 [facility] Comment on above: Performed By: #### 1 [id number], 1285909, [id number] #### [facility] [address] [place] [address] Hematocrit (Bld) [Volume fraction] 38.6 % Normal 34.0-46.0 [facility] Comment on above: Performed By: #### 1 [id number], 6345050, [id number] #### [facility] [address] [place] [address] Hemoglobin (Bld) [Mass/Vol] 13.6 g/dL Normal 12.0-16.0 [facility] Comment on above: Performed By: #### 1 [id number], 4493155, [id number] #### [facility] [address] [place] [address] MCH (RBC) [Entitic mass] 31.1 pg Normal 27.0-34.0 [facility] Comment on above: Performed By: #### 1 [id number], [id number], [id number] #### [facility] [address] [place] [address] MCHC (RBC) [Mass/Vol] 35.2 g/dL Normal 31.4-36.0 [facility] Comment on above: Performed By: #### 1 [id number], 8479522, 6435995 #### [facility] [address] [place] [address] MCV (RBC) [Entitic vol] 88.2 fL Normal 80.0-100.0 [facility] Comment on above: Performed By: #### 1 [id number], 2844456, 3588038 #### [facility] [address] [place] [address] Platelet mean volume (Bld) [Entitic vol] 8.2 fL Normal 6.4-10.8 [facility] Comment on above: Performed By: #### 1 [id number], 1432660, 5923719 #### [facility] [address] [place] [address] Platelets (Bld) [#/Vol] 231.0 E9/L Normal 150.0-500.0 [facility] Comment on above: Performed By: #### 1 [id number], 9868933, 5953829 #### [facility] [address] [place] [address] RBC (Bld) [#/Vol] 4.4 E12/L Normal 4.3-5.9 [facility] Comment on above: Performed By: #### 1 [id number], 5210618, [id number] #### [facility] [address] [place] [address] WBC corrected for nucl RBC Auto (Bld) [#/Vol] 4.5 E9/L Normal 4.0-11.0 [facility] Comment on above: Performed By: #### 1 [id number], 2298022, 2688908 #### [facility] [address] [place] [address] Consent for Treatmenton 12-01 Consent for Treatment [id number] 0CD:127 Normal [facility] Physician Orderon 12-19-2021 Physician Order [id number]. 00CD:127 Normal [facility] XR Chest 2 Viewson XR Chest 2 [...] V. Transcribed by: DELICIA Technologist: RH Normal [facility] eGFRon 12-19-2021 GFR/1.73 sq M.predicted among blacks MDRD (S/P/Bld) [Vol rate/Area] mL/min/{1.73_m2} Normal >=59 [facility] Comment on above: Order Comment: Order added by Discern Expert. Result Comment: eGFR is race adjusted. AA=. Performed By: #### 1 [id number], [id number], [id number] #### [facility] [address] [place] [address] GFR/1.73 sq M.predicted among non-blacks MDRD (S/P/Bld) [Vol rate/Area] mL/min/{1.73_m2} Normal >=59 [facility] Comment on above: Order Comment: Order added by Discern Expert. Result Comment: Insurance Claims Adjuster kary kidney disease could be indicated at eGFR's of less than 60 mL/min/1.73m2. Kidney failure is indicated at less than 15 mL/min/1.73m2. Performed By: #### 1 [id number], [id number], [id number] #### [facility] [address] [place] [address] Physician Orderon 12-06-2021 Physician Order [id number]. 00CD:127 Normal [facility] RAD - MISCon 11-04-2021 RAD - MISC [id number]#1. 00CD:127 Normal [facility] MR knee RT wo conon 08-30-20 MR knee RT wo [facility] Main [place] [id number] MRI Report Signed Patient: Cony Matos MR#: [id number] [birth year] : 1960 Acct:[id number] Age/Sex: 60 / F ADM Date: 08/30/21 Loc: [facility] Room: Type: [facility] CLI Attending Dr: Jose A Petersen MD [...] Location: [facility]12 Transcribed By: [facility] 08/30/21 1136 Dictated By: Jamarcus Prado II, MD 08/30/21 1120 Signed By: 08/30/21 1136 [facility] XR knee RT 2Von 08-22-2021 XR knee RT 2V [facility] [place] [address] [place] [address] XRay Report Signed Patient: Cony Matos MR#: [id number] [birth year] : 1960 Acct:[id number] Age/Sex: 60 / F ADM Date: 08/22/21 Loc: [facility] Room: Type: [facility] Attending Dr: Jose A Petersen MD Ordering [...] Jamarcus Prado M.D.08/22/2021 1:26 PM Dictation Location: [place] [address] Transcribed By: [facility] 08/22/21 1326 Dictated By: Jamarcus Prado II, MD 08/22/21 1325 Signed By: 08/22/21 1326 [facility] Cardiovascular Lab Reporton 05-17-2019 Cardiovascular Lab Report [facility] Patient Name: [facility] Ceasar MR #: [id number] Department of Physician: Rico James M.D. Division of Service Date: 05/17/2019 Cardiology Birthdate: 1960 Adult Cardiovascular Room #: [address] [place] [address] Cardiovascular Laboratory Report INDICATION: The patient is [...] signed informed consent. She was brought to medical laboratory assistant in a fasting state. The right neck area was prepped and draped in usual fashion. Using ultrasound guidance and micropuncture technique, the right internal jugular vein was accessed. A 6-Bruneian x 11 cm sheath was placed. A 6-Bruneian Irvin catheter was used for right heart catheterization with measurement of pressures and calculation of cardiac output using the estimated Sherman method. Irvin catheter was removed. Jamar's test was favorable on the right. Access in the right radial artery was obtained using micropuncture technique, a 5-Bruneian 11 cm Hydrophilic sheath was advanced. Verapamil was given through the sheath and heparin was administered intravenously. Bilateral selective coronary angiography was then performed using a 6-Bruneian JL5 diagnostic catheter. This catheter was removed. [...] James M.D. Date Trans: 05/17/2019 01:54 P/timoteo [id number] cc: Paddy Stone M.D. [address], [facility] [address] [place] [facility] Vital Signs Date Time Vital Sign Value Performing Clinician Farrah arthur 08-22-2021 10:00-0400 Body height 167.64 cm Jose A Petersen Other [facility] Other 08-22-2021 10:00-0400 Body mass index (BMI) [Ratio] 25.01 kg/m2 Jose A Petersen Other [facility] Other 08-22-2021 10:00-0400 Body weight 70.31 kg Jose A Petersen Other [facility] Other Encounters Encounter Date Encounter Type Care Provider Facility Start: 04-02-2023 End: 04-03-[address] PADDY STONE . Facility:[facility] Start: 11-08-2022 Encounter for genera l adult medical examination without abnormal findings DR PADDY STONE . [facility] Start: 11-03-2022 End: 11-03-[address] PADDY [...] End: 10-03-2021 ambulatory Jose A Petersen Other [facility] Other Start: 10-03-2021 Telephone encounter Jose A Petersen [facility] Start: 08-22-2021 Office outpatient ne w 45 minutes Jose A Petersen [facility] Start: 05-17-2019 End: 05-18-2019 Patient encounter procedure PROVIDER UNKNOWN Facility:[facility] Payers Date Payer Category Payer Unknown [id number] [id number] 1960 Unknown [id number] 2.16.84 [id number] 1960 Unknown [id number] 2.16.84 [id number] 1960 Unknown [id number] 2.16.84 [id number] 1960 Unknown [id number] 2.16.84 [id number] 1960 Unknown [id number] 2.16.84 [id number] 1960 Unknown [id number] 2.16.84 [id number] 1960 Unknown [id number] 2.16.84 [id number] 1960 Unknown [id number] 2.16.84 [id number] 1958 Self-pay 1958 Unknown [id number] Social History Date Type Detail Facility Sex Assigned At [facility] Other Evaluation note 08-22-2021 Note Date & [...] of pain and plan potential surgical treatment. [facility] Other Evaluation note Note Date & Type Note Facility Evaluation note No Information [email or web address] Other History general Narrative - Reported Note Date & Type Note Facility History general Narrative - Reported Type Surgical History C section x3 Surgical History hysterectomy Surgical History gall bladder Hospitalization History see above [facility] Other Summary Purpose Family History No Family [...] and content) DATE CREATED AUTHOR 07/12/2019 [facility] DATE CREATED AUTHOR AUTHOR'S ORGANIZ ATION 01/16/2022 [facility] DATE CREATED AUTHOR AUTHOR'S ORGANIZ ATION 02/21/2022 [facility] DATE CREATED AUTHOR AUTHOR'S ORGANIZ ATION 10/03/2022 [facility] dical Specialist DATE CREATED AUTHOR AUTHOR'S [...] BE BASED ON THE PRIMARY CLINICAL RECORDS. [facility] [email or web address] [facility]. provides no warranty or guarantee of the accuracy or completeness of information in this document.
--- NOTE | 2023-12-15 09:33 | CT_ITS ---
[address] [address] Patient Name: JOCELYNE MATOS MRN: [id number] date: 1960 Sex: F Assigned Patient Location: CT Current Patient Location: CT Accession/Order Number: [id number] Exam Date: 12/15/2023 09:44 Report Date: 12/15/2023 10:59 At the request of: PADDY HER Procedure: CT chest wo con EXAMINATION: CT chest wo con HISTORY: Pneumonia J18.9 COMPARISON: Plain x-ray 12/04/2023 TECHNIQUE: Multi-planar CT images were created with IV contrast. Axial, Coronal, and Sagittal images. Dose reduction techniques were achieved by using automated exposure control and/or adjustment of mA and/or kV according to patient size and/or use of iterative reconstruction technique. FINDINGS: LUNGS: Scattered patchy parenchymal infiltrates most significant in the left lower lobe with the largest area is ill-defined mildly spiculated semisolid/ground glass measuring 2.4 cm axial image 65. Additional bilateral linear opacities likely atelectasis and/or scar PLEURA: No mass, effusion, or pneumothorax. VASCULATURE: No abnormality. ALEJANDRA: No mass or adenopathy. MEDIASTINUM: No mass or adenopathy. CARDIAC: No enlargement, pericardial thickening, or significant calcification. AORTA: No aortic aneurysm CHEST WALL: No mass or axillary adenopathy. BONES: Moderate degenerative spondylosis LIMITED ABDOMEN: No suspicious findings. Limited images of the upper abdomen. OTHER: Negative. CT/CT chest wo con IMPRESSION: Bilateral patchy parenchymal infiltrates most significant in the left lower lobe. Pneumonia is favored. Follow-up after treatment is recommended to document resolution and exclude an underlying mass Electronically authenticated by: WALDO BUSTAMANTE Date: 12/15/2023 10:59
== END 2023-12-15 09:29 | disposition home or self-care (01) ==
LOC: CT 09:28
PROVIDERS: PCP Family Medicine; Visit Provider Family Medicine
DX: J18.9 Pneumonia, unspecified organism (principal)
CPT/HCPCS: 71250

== ENCOUNTER 2024-03-11 06:34 | Outpatient (OUT) | payer OTHER, SELFPAY ==
--- OUTSIDE RECORDS SUMMARY | 2024-03-11 06:39 | XMS_ITS | CCD ---
Author Organization [facility] Care Team Providers Care Pharmacy Assistant Name Role Phone UNKNOWN, PROVIDER Admitting Unavailable UNKNOWN, PROVIDER Attending Unavailable PADDY STONE Referring Unavailable HOY, PADDY Primary Care Unavailable Jose A Petersen Unavailable ARDEN ., DR THOMASON Primary Care Unavailable HOY ., DR THOMASON Consulting Unavailable HOY ., DR THOMASON Attending Unavailable HOY ., DR THOMASON Admitting Unavailable WEST, DR WALDO [employer] Unavailable HOY ., [...] Unavailable SHANNON ., DR MORALES Attending Unavailable ZIEBBANDAR, DR OWEN [employer] Unavailable SHANNON ., [...] sources) Acetaminophen / oxyCODONE Drug Allergy 10-19-20 [facility] Repository (1 source) Sulfamethoxazole / Trimethoprim Drug Allergy 05-17-20 19 [facility] Repository (2 sources) Acetaminophen / oxyCODONE Drug Allergy Unknown [employer] Other (4 sources) Latex Propensity to adverse reactions Unknown [employer] [facility] Other (2 sources) Sulfacetamide / Sulfur Drug Allergy Unknown [facility] Other (2 sources) Sulfamethoxazole / Trimethoprim Drug Allergy Unknown [employer] Other (2 sources) Codeine Drug Allergy 10-12-20 14 [facility] Repository (2 sources) Latex Drug allergy (disorder) 10-25-20 14 [facility] Repository (1 source) Sulfamethoxazole / Trimethoprim Drug Allergy 01-08-20 17 [facility] Rep[facility] (1 source) Sulfonamides (Antibiotic) Drug allergy (disorder) 01-08-20 17 [facility] Rep[facility] Problems Active Problems Problem Classification [...] 04-02-2023 Creatinine [Mass/Vol] 0.80 mg/dL Normal 0.55-1.02 [facility] Comment on above: Performed By: #### L IPID, CMP, T7, TSH #### [facility] [address] [address] [address] Nga Ribeiro EGFR-AF BURMESE >60 Normal >=60 [facility] Comment on above: Performed By: #### L IPID, CMP, T7, TSH #### [facility] [address] [place], [place] [address] Dr. Nga Ribeiro EGFR-NON AF BURMESE >60 Normal >=60 [facility] Comment on above: Performed By: #### L IPID, CMP, T7, TSH #### [facility] [address] [place], [place] [address] ABD/PELV W CONon [...] WALDO BUSTAMANTE Date: 2023-04-02 15:30 Normal [facility] OCC BLD IMMUNO SCREENon OCCULT BLOOD Negative Normal NEGATIVE [facility] Comment on above: Performed By: #### O BSCRN #### [facility] [address] [place] [address] Dr. Nga Ribeiro INSULINon 10-31-2022 Insulin 8.8 uIU/mL Normal 2.6-24.9 [facility] Comment on above: Performed By: #### L IPID, CMP, T7, TSH #### [facility] [address] [place] [address] Dr. Nga Ribeiro CBC AUTO DIFFon 10-30-2022 BASO # 0.1 103/ul Normal 0.0-0.1 [facility] Comment on above: Performed By: #### L IPID, CMP, T7, TSH #### [facility] [address] [place] [address] Dr. Nga Ribeiro Basophils/100 WBC (Bld) 1.4 % Normal 0.2-2.0 [facility] Comment on above: Performed By: #### L IPID, CMP, T7, TSH #### [facility] [address] [place] [address] Dr. Nga Ribeiro EO # 0.3 103/ul Normal 0.0-0.7 [facility] Comment on above: Performed By: #### L IPID, CMP, T7, TSH #### [facility] [address] [address] [address] Nga Ribeiro Eosinophils/100 WBC (Bld) 6.3 % Normal 0.9-7.0 [facility] Comment on above: Performed By: #### L IPID, CMP, T7, TSH #### [facility] [address] [address] [address] Nga Ribeiro Erythrocyte distribution width (RBC) [Ratio] 12.7 % Normal 11.0-15.0 [facility] Comment on above: Performed By: #### L IPID, CMP, T7, TSH #### [facility] [address] [place] [address] Dr. Nga Ribeiro Hematocrit (Bld) [Volume fraction] 40.4 % Normal 36.0-48.0 [facility] Comment on above: Performed By: #### L IPID, CMP, T7, TSH #### [facility] [address] [place] [address] Dr. Nga Ribeiro Hemoglobin (Bld) [Mass/Vol] 13.8 g/dL Normal 12.0-16.0 [facility] Comment on above: Performed By: #### L IPID, CMP, T7, TSH #### [facility] [address] [place] [address] Dr. Nga Ribeiro IG # 0.01 10e3/ul Normal 0.00-0.03 [facility] Comment on above: Performed By: #### L IPID, CMP, T7, TSH #### [facility] [address] [place] [address] Dr. Nga Ribeiro IG % 0.2 % Normal 0.0-0.5 [facility] Comment on above: Performed By: #### L IPID, CMP, T7, TSH #### [facility] [address] [place] [address] Dr. Nga Ribeiro LYMPH # 1.9 103/ul Normal 1.2-3.8 [facility] Comment on above: Performed By: #### L IPID, CMP, T7, TSH #### [facility] [address] [place] [address] Dr. Nga Ribeiro Lymphocytes/100 WBC (Bld) 46.4 % Normal 20.5-60.0 [facility] Comment on above: Performed By: #### L IPID, CMP, T7, TSH #### [facility] [address] [place] [address] Dr. Nga Ribeiro MANUAL DIFF REQ NO Normal [facility] Comment on above: Performed By: #### L IPID, CMP, T7, TSH #### [facility] [address] [place] [address] Dr. Nga Ribeiro MCH (RBC) [Entitic mass] 30.6 pg Normal 26.7-34.0 [facility] Comment on above: Performed By: #### L IPID, CMP, T7, TSH #### [facility] [address] [place] [address] Dr. Nga Ribeiro MCHC (RBC) [Mass/Vol] 34.2 g/dL Normal 29.9-35.2 [facility] Comment on above: Performed By: #### L IPID, CMP, T7, TSH #### [facility] [address] [place] [address] Dr. Nga Ribeiro MCV (RBC) [Entitic vol] 89.6 fL Normal 81.0-99.0 [facility] Comment on above: Performed By: #### L IPID, CMP, T7, TSH #### [facility] [address] [place] [address] Dr. Nga Ribeiro MONO # 0.4 103/ul Normal 0.3-0.8 [facility] Comment on above: Performed By: #### L IPID, CMP, T7, TSH #### [facility] [address] [place] [address] Dr. Nga Ribeiro Monocytes/100 WBC (Bld) 9.1 % Normal 1.7-12.0 [facility] Comment on above: Performed By: #### L IPID, CMP, T7, TSH #### [facility] [address] [place] [address] Dr. Nga Ribeiro NEUT # 1.5 103/ul Normal 1.4-6.5 [facility] Comment on above: Performed By: #### L IPID, CMP, T7, TSH #### [facility] [address] [address] [address] Nga Ribeiro Neutrophils/100 WBC (Bld) 36.6 % Critically low 43.0-75.0 [facility] Comment on above: Performed By: #### L IPID, CMP, T7, TSH #### [facility] [address] [place] [address] Dr. Nga Ribeiro Platelet mean volume (Bld) [Entitic vol] 9.2 fL Critically low 9.5-13.5 [facility] Comment on above: Performed By: #### L IPID, CMP, T7, TSH #### [facility] [address] [place] [address] Dr. Nga Ribeiro PLT 194 103/ul Normal 150-450 [facility] Comment on above: Performed By: #### L IPID, CMP, T7, TSH #### [facility] [address] [place] [address] Dr. Nga Ribeiro RBC 4.51 106/ul Normal 4.20-5.40 [facility] Comment on above: Performed By: #### L IPID, CMP, T7, TSH #### [facility] [address] [place] [address] Dr. Nga Ribeiro WBC 4.2 103/ul Normal 4.0-11.0 [facility] Comment on above: Performed By: #### L IPID, CMP, T7, TSH #### [facility] [address] [place] [address] Dr. Nga Ribeiro FREE THYROXINE INDEX T7on FTI 2.66 Normal 1.30-4.50 [facility] Comment on above: Performed By: #### L IPID, CMP, T7, TSH #### [facility] [address] [place] [address] Dr. Nga Ribeiro T3U 36.0 % Normal 30.0-39.0 [facility] Comment on above: Performed By: #### L IPID, CMP, T7, TSH #### [facility] [address] [address] [address] Nga Ribeiro T4 [Mass/Vol] 7.40 ug/dL Normal 4.80-13.90 [facility] Comment on above: Performed By: #### L IPID, CMP, T7, TSH #### [facility] [address] [address] [address] Nga Ribeiro GLYCOHEMOGLOBIN A1Con 2021 ADA RECOMMENDATION SEE BELOW Normal [facility] Comment on above: Result Comment: ADA RECOMMENDED LIMIT 4.0 - 6.0 ADA THERAPEUTIC TARGET < 7.0 ACTION SUGGESTED > 7.0 Performed By: #### A 1C #### [facility] [address] [place] [address] Dr. Nga Ribeiro Glucose [Mass/Vol] 94 mg/dL Normal [facility] Comment on above: Performed By: #### A 1C #### [facility] [address] [place] [address] Dr. Nga Ribeiro HbA1c (Bld) [Mass fraction] 4.9 % Normal 4.5-6.2 [facility] Comment on above: Performed By: #### A 1C #### [facility] [address] [place] [address] Dr. Nga Ribeiro IRONon 10-30-2022 Iron [Mass/Vol] 119.0 ug/dL Normal 50.0-170.0 [facility] Comment on above: Performed By: #### I CHARISMA #### [facility] [address] [place] [address] Dr. Nga Ribeiro LIPID PROFILEon 10-30-2022 CHOL-HDL RATIO NORM SEE BELOW Normal [facility] Comment on above: Result Comment: 3.3 - 4.4 LOW RISK 4.4 - 7.1 AVERAGE RISK 7.1 - 11.0 MODERATE RISK >11.0 HIGH RISK Performed By: #### L IPID, CMP, T7, TSH #### [facility] [address] [place] [address] Dr. Nga Ribeiro Cholesterol [Mass/Vol] 201 mg/dL Critically high <=200 [facility] Comment on above: Performed By: #### L IPID, CMP, T7, TSH #### [facility] [address] [address] [address] Nga Ribeiro Cholesterol in HDL [Mass/Vol] 78 mg/dL Critically high 40-60 [facility] Comment on above: Performed By: #### L IPID, CMP, T7, TSH #### [facility] [address] [address] [address] Nga Ribeiro Cholesterol in LDL [Mass/Vol] 108.8 mg/dL Normal [facility] Comment on above: Performed By: #### L IPID, CMP, T7, TSH #### [facility] [address] [address] [address] Nga Ribeiro Cholesterol.total/Ch olesterol in HDL [Mass ratio] 2.6 {ratio} Normal [facility] Comment on above: Performed By: #### L IPID, CMP, T7, TSH #### [facility] [address] [address] [address] Nga Ribeiro HDL NORMAL > or = 60 mg/dl - LO W CARDIOVASCULAR RISK <40 mg/dl - HIGH CARDIOVASCULAR RISK Normal [facility] Comment on above: Performed By: #### L IPID, CMP, T7, TSH #### [facility] [address] [address] [address] Nga Ribeiro LDL CALC NORMAL SEE BELOW Normal [facility] Comment on above: Result Comment: <100 mg/dl OPTIMAL 100 - 129 mg/dl NEAR OR ABOVE OPTIMAL 130 - 159 mg/dl BORDERLINE HIGH 160 - 189 mg/dl HIGH >190 mg/dl VERY HIGH Performed By: #### L IPID, CMP, T7, TSH #### [facility] [address] [address] [address] Nga Ribeiro Triglyceride [Mass/Vol] 71 mg/dL Normal <=150 [facility] Comment on above: Performed By: #### L IPID, CMP, T7, TSH #### [facility] [address] [address] [address] Nga Ribeiro VLDL CALC 14.2 mg/dL Normal [facility] Comment on above: Performed By: #### L IPID, CMP, T7, TSH #### [facility] [address] [address] [address] Nga Ribeiro PROF 14(COMP METB)on 022 Albumin [Mass/Vol] 3.8 g/dL Normal 3.4-5.0 [facility] Comment on above: Performed By: #### L IPID, CMP, T7, TSH #### [facility] [address] [place] [address] Dr. Nga Ribeiro Albumin/Globulin [Mass ratio] 1.1 {ratio} Normal [facility] Comment on above: Performed By: #### L IPID, CMP, T7, TSH #### [facility] [address] [place] [address] Dr. Nga Ribeiro ALP [Catalytic activity/Vol] 91 U/L Normal 46-116 [facility] Comment on above: Performed By: #### L IPID, CMP, T7, TSH #### [facility] [address] [address] [address] Nga Ribeiro ALT [Catalytic activity/Vol] 19 U/L Normal 14-59 [facility] Comment on above: Performed By: #### L IPID, CMP, T7, TSH #### [facility] [address] [place] [address] Dr. Nga Ribeiro Anion gap [Moles/Vol] 9.2 mmol/L Normal [facility] Comment on above: Performed By: #### L IPID, CMP, T7, TSH #### [facility] [address] [place] [address] Dr. Nga Ribeiro AST [Catalytic activity/Vol] 18 U/L Normal 15-37 [facility] Comment on above: Performed By: #### L IPID, CMP, T7, TSH #### [facility] [address] [place] [address] Dr. Nga Ribeiro Bilirubin [Mass/Vol] 0.5 mg/dL Normal 0.2-1.0 [facility] Comment on above: Performed By: #### L IPID, CMP, T7, TSH #### [facility] [address] [address] [address] Nga Ribeiro Calcium [Mass/Vol] 9.5 mg/dL Normal 8.5-10.1 [facility] Comment on above: Performed By: #### L IPID, CMP, T7, TSH #### [facility] [address] [address] [address] Nga Ribeiro Chloride [Moles/Vol] 105 mmol/L Normal 98-107 [facility] Comment on above: Performed By: #### L IPID, CMP, T7, TSH #### [facility] [address] [place] [address] Dr. Nga Ribeiro CO2 [Moles/Vol] 29.5 mmol/L Normal 21.0-32.0 [facility] Comment on above: Performed By: #### L IPID, CMP, T7, TSH #### [facility] [address] [place] [address] Dr. Nga Ribeiro Creatinine [Mass/Vol] 0.68 mg/dL Normal 0.55-1.02 [facility] Comment on above: Performed By: #### L IPID, CMP, T7, TSH #### [facility] [address] [place] [address] Dr. Nga Ribeiro EGFR-AF BURMESE >60 Normal >=60 [facility] Comment on above: Performed By: #### L IPID, CMP, T7, TSH #### [facility] [address] [place] [address] Dr. Nga Ribeiro EGFR-NON AF BURMESE >60 Normal >=60 [facility] Comment on above: Performed By: #### L IPID, CMP, T7, TSH #### [facility] [address] [place] [address] Dr. Nga Ribeiro Globulin (S) [Mass/Vol] 3.6 g/dL Normal [facility] Comment on above: Performed By: #### L IPID, CMP, T7, TSH #### [facility] [address] [place] [address] Dr. Nga Ribeiro Glucose [Mass/Vol] 100 mg/dL Normal 74-106 [facility] Comment on above: Performed By: #### L IPID, CMP, T7, TSH #### [facility] [address] [address] [address] Nga Ribeiro Potassium [Moles/Vol] 4.7 mmol/L Normal 3.5-5.1 [facility] Comment on above: Performed By: #### L IPID, CMP, T7, TSH #### [facility] [address] [place] [address] Dr. Nga Ribeiro Protein [Mass/Vol] 7.4 g/dL Normal 6.4-8.2 [facility] Comment on above: Performed By: #### L IPID, CMP, T7, TSH #### [facility] [address] [place] [address] Dr. Nga Ribeiro Sodium [Moles/Vol] 139 mmol/L Normal 136-145 [facility] Comment on above: Performed By: #### L IPID, CMP, T7, TSH #### [facility] [address] [address] [address] Nga Ribeiro Urea nitrogen [Mass/Vol] 19.0 mg/dL Critically high 7.0-18.0 [facility] Comment on above: Performed By: #### L IPID, CMP, T7, TSH #### [facility] [address] [place] [address] Dr. Nga Ribeiro Urea nitrogen/Creatinine [Mass ratio] 27.9 mg/mg Normal [facility] Comment on above: Performed By: #### L IPID, CMP, T7, TSH #### [facility] [address] [place] [address] Dr. Nga Ribeiro TSHon 10-30-2022 TSH 0.871 uIU/mL Normal 0.358-3.740 [facility] Comment on above: Performed By: #### L IPID, CMP, T7, TSH #### [facility] [address] [place] [address] Dr. Nga Ribeiro Covid-19 PCR (CVDTB)on 10-01 SARS-CoV-2 (COVID-19) RNA VALENTINA+probe Ql (Unsp spec) Not detected Normal NOT DETECTED [facility] Comment on above: Result Comment: When [...] for this test is supported by the [place] of [employer] and Human Service's declaration that [...] longer be used). Performed By: #### C VDTB #### [facility] [address] [place] [address] Dr. Nga Ribeiro INFLUENZA A AND B [facility]on 10-[facility] Normal [facility] Comment on above: Result Comment: Nega tive for Flu A protein angiten. Infection due to Flu A cannot be ruled out. Flu A angiten in the sample may be below the detection limit of the test. Performed By: #### L IPID, CMP, T7, TSH #### [facility] [address] [place] [address] Dr. Nga [facility]ibe[facility] SEE BEL[facility] Normal [facility] Comment on above: Result Comment: Nega tive for Flu B protein antigen. Infection due to Flu B cannot be ruled out. Flu B antigen in the sample may be below the detection limit of the test. Performed By: #### L IPID, CMP, T7, TSH #### [facility] [address] [place] [address] Dr. Nga Ribeiro INFLUENZA A AG Negative Normal NEGATIVE SEE COMMENT [facility] Comment on above: Performed By: #### L IPID, CMP, T7, TSH #### [facility] [address] [place], [place] [address] Dr. Nga Ribeiro INFLUENZA B AG Negative Normal NEGATIVE SEE COMMENT [facility] Comment on above: Performed By: #### L IPID, CMP, T7, TSH #### [facility] [address] [place], [place] [address] Dr. Nga Ribeiro INTERNAL CONTROLS Within Normal Limits Normal Wi thin Normal Limits [facility] Comment on above: Performed By: #### L IPID, CMP, T7, TSH #### [facility] [address] [place], [place] [address] Dr. Nga Ribeiro MRI Shoulder w/o Lefton [...] by Maulik Stewart on 10/02/2022 1335 Normal [facility] Business Liaison Officer MG MAMM SCREEN 3D ZARI CADon 06-16-2022 MG MAMM SCREEN 3D ZARI CAD Patient: CONY MATOS Exam Date: 06/16/2022 : 1960 Gender:F Ordering : DR ANDREW ORTEGA . Admission #: [id number] Family : Order #: [id number] CLICK HERE TO VIEW EXAM RADIOLOGY REPORT [...] No Treatments Excision Family Cancers None LOCATION: [facility] BREAST COMPOSITION: Scattered areas fibroglandular density. FINDINGS: [...] Nixon M.D. on 06/16/2022 at 13:28 Normal [facility] PAP ACOG PANEL 2: 30 to 65on 05-30-2022 . . Normal [facility] Comment on above: Result Comment: Perf ormed at: WB Performed By: #### L IPID, CMP, T7, TSH #### [facility] [address] [address] [address] Nga Ribeiro Age Gdln ACOG Testing 30-65 Normal [facility] Comment on above: Performed By: #### L IPID, CMP, T7, TSH #### [facility] [address] [address] [address] Nga Ribeiro DIAGNOSIS: Comment Normal [facility] Comment on above: Result Comment: UNSA TISFACTORY FOR EVALUATION. Performed at: WB Performed By: #### L IPID, CMP, T7, TSH #### [facility] [address] [address] [address] Nga Ribeiro HPV Aptima Negative Normal Negative [facility] Comment on above: Result Comment: This nucleic acid amplification test detects fourteen high-risk HPV types (16,18,31,33,35,39,45,51,52,56,58,59,66,68) without differentiation. Performed at: =G Performed By: #### L IPID, CMP, T7, TSH #### [facility] [address] [address] [address] Nga Ribeiro Methodology: Comment Normal [facility] Comment on above: Result Comment: This liquid based ThinPrep(R) pap test was screened with the use of an image guided system. Performed at: WB Performed By: #### L IPID, CMP, T7, TSH #### [facility] [address] [address] [address] Nga Ribeiro Note: Comment Normal [facility] Comment on above: Result Comment: The Pap [...] #### L IPID, CMP, T7, TSH #### [facility] [address] [address] [address] Nga Ribeiro Performed by: Comment Normal [facility] Comment on above: Result Comment: Kolton Carpio, Business Liaison Officer (ASCP) Performed at: WB Performed By: #### L IPID, CMP, T7, TSH #### [facility] [address] [address] [address] Nga Ribeiro QC reviewed by: Comment Normal [facility] Comment on above: Result Comment: Adore Sloan, Supervisory Business Liaison Officer (ASCP) Performed at: WB Performed By: #### L IPID, CMP, T7, TSH #### [facility] [address] [address] [address] Nga Ribeiro Recommendation: Comment Normal [facility] Comment on above: Result Comment: Sugg est follow up as clinically appropriate. Performed at: WB Performed By: #### L IPID, CMP, T7, TSH #### [facility] [address] [address] [address] Nga Ribeiro Specimen adequacy: Comment Normal [facility] Comment on above: Result Comment: Spec imen processed and examined but unsatisfactory for evaluation of epithelial abnormality because of insufficient cellularity. Performed at: WB Performed By: #### L IPID, CMP, T7, TSH #### [facility] [address] [place] [address] Dr. Nga Ribeiro Coding Summary.on 12-30-2021 Coding Summary. CD:[id number] Gh 0bWw+PGhlYWQ+ZY1HJPQkL 57fhHHirU7WM5kYXL3FFWR PKDOZOJ5ZUN5hsJL4KXicG 2VybiAv LklcgPNlFE36MUt0QBB1gK yzBQjqoI7rkJSyX7a3EuOi FF59jB11ZHkjGYMwLfV2Bo ZpbjsgbWFy M8emOcVdiCKlAix+PHRhYm xlIHdpZHRoPScxMDAlJyBz iJonDA5aLl4hUHSdZMYzoY xhcHNlOiBj a8bzPFMiBPjdDN4jjQjdA7 UodGB6ANAky3n4Eu96jHQ+ CCGbGNL6pGxtCJhzi336Hf Dvw4caWGH6 wRBnNHfyOMT8E76sk5F5NB PhRQYiPOE8cYV1tK7gxYwy sacvK6QldHGaHaG7OKO3pR RnvW8esVnz ubcseW2bGgf+M27EPL8RMC OUIB6OUuv1O9OeNwigkBQ+ ZW76IWLpCO70xDImsBZoi1 fnnLd8CiQk AYIsPFV4uDqeVJzbc8PhDY IcK09qtBEom0C6LPTeoZka nHJqQsEtrHI2wL1gKSerue bft7dytaaq Cncke8wvxj80bN70L20fTG naRFKnYAA9SSUdHTPpeKsi qt3lsK8bEk3+MMkai1wwn0 duzDc3GbZv GEFzmpEngYdeSYG1w5RqAp 32N6FebZrkw7DrVif0kp47 tWYzk3D1mSG2XVwnRWFgsG 4vWSfkKaJ1 LITeRcTgtK94mIShNLghXg 3shTpdiCbaQL3aXICnxprz LMLhpY4sSOKouFMgyElnJT 4wNTBpbjtm h104MgXeQOH3QOSrcVPaE5 TnrJ9qXrEpEWEfVUIgT1Qp fOOnEYwbG938SRkeGsZ0II AhotKfX4Tq NQUkqCrjSwL2w9F2Aw5Uj1 DgnqmnWZC8PCinGPUzZeKo MfNsCpC8E7MxQee4ATMeiP zwWP0cO8Zl PFYmdddtghsqzLR5CTXvTF QiyK76kXHeBFjjVd4oy9N0 m292THIrVUIakE90Zj6juB ogMTBwdCBU lI0nldwul5gmwrmaImQhLG UtNWg0EZf6EVApbJaqIjSy RMD4IhY0UYI0bRRzyM6gdE meqbdtaA1y Oyc+P21maR2gWPW2KAL3lh bnBSWzfrEaUM10KA22W0Ue PjwvdGFibGU+PGRpdiBzdH aeAG1nJaDn h4grl5UfUWrwW5TzAYGiSR tbYng2PEEnZPC4eXY2mG5m ELTwREhnj8Q7oJC5Q4Vazg Mmux2rs7yi PUMtUKrxY81hpIRcb0N5XQ YdeNU4FXGdcYjmBdTpxL17 Oyc+RCXzaIbgr0QiSjqsp3 mpf4ciyGc2 DqChRGSwwuQlbOllLLY4d1 PxHe53G68bVMudFICzYHOz ZCFyNTJmlIvtwk9mnT9oIp 8+PGNvbCB3 oAZ0vF6fGUZhIkA5PZyeE0 25EfRofJUgUipwn0kal5kw qQi0OuHqHZYteuKkyMvbWE M8n7JzHu73 F44nXKbdPFDrDMFnESRaCY YdtXvylp3itB0rHh7+PC9j l2ryhw79xM83eCO+PHRkIH K0aJohINdr MLMqgB3pXGkoWiV7HIViCu HrbW83zDIqBNwtHl5bdLcy mQslRQ9kEVVvpwdzq632Bv Idz4alRMMt qLUpCUirJSU3P17kp9N1OL GrSHMxWWG1zHY5mW7zfUzs bjogbGVmdDsgdmVydGljYW xdJNqwT195 IHRvcDsnPlBhdGllbnQgTm MiPPz6L7GyFln1JPHvfSnx JU1nwQXpFJhvTe9htVhzoM ytSQ4hUMWh zyehl358GrCtz1eaUHBwdF OqCUuyLCX7A70lq1R1HKQm IDPdNJC9sIS7vP9auXciip ogbGVmdDsg nuNddBwlNPzqXRkyI325KK RvcDsnPkJpcnRoIERhdGU6 HW03FF44wYMyj2Y7sDD8J1 BhZGRpbmct wuzluEK4YGLxRIXboL21Kz 8aqGteWv8nXVWlOYV1KYSj dKUoO6RblE5qSwQcFZAnMH WyF8RbiVVc MNyvA171UIqsSpG1WZOdar CvI1HeRCZugDyiDdC2p6E1 Ok8SN1V1YZ74TE32xCRcb4 U4bVV7R4Fb ENKaodgenmniaZS4MQGmKI AjtC00Jw3tuYgkVv2oAUUo ZFP6OWQowDPoR7TkbC1pPu AjMDAwMDAw I0FuiZWrNIqkM415VBrxRf H7QZToafTtA9EoVHUqaNuy MrW6u1J1Zo3TFVm7ZA30QG 28vTKnf9V5 uLH0T5MmZONutlsamhsgsO O8EWBxFMOglJ70Rs6iyGkb Dr6kQJIzKZQ2GEVihNLlU2 RlxD9aGuKm DRLrXNAxI6ZzrFBcZJidO1 58ECtgNjA0LGHdlqImM8Nc ENKifFlqFkE8q5K5Pg8ISA SlXY92ZPC4 mGO3YE94JA92A9HnHtqyiF FibGU+PHRhYmxlIHdpZHRo TJzdFYGwSaDobInhQP1rWq 9yZGVyLWNv sJkqoDFxMtKpj4boKEIjXF psYN6gbMpxI8GmrRF6XRMa m4i2Je19K90jQ1KqmAU+PG PojUM1bUB1 pY7bWfGzEdZ1OBdnX070Ar PzzKXzKjevy3adf8jacDh8 VdG7ZOIlwgFrtGfaXGG0y0 VySv29J78d IHdpZHRoPSIxNSUiIHZhbG naho5luQ6lFf1+PGNvbCB3 gDG3fO1wGnVhSnJ7QFpdI9 49InRvcCIv Xdxde5ugr0jhzGx4AfCeLI MtceAgsZwkCTV8f9HdNe13 T8MrtCbsa4HwStf2cl02bB Fss8U3oEG2 E8IlQPRbxemeoIAjfBjwKM 5oFMHzniepEBZnlX6xGDHo R3w5NvQfShN5MQflB7Xoeq D4JGGncFMl JOqsXYQ3M99js1O0YXIcZI OvPYV8pBN8gR1olLyiutso bGVmdDsgdmVydGljYWwtYW gnV154LAMg pZlwHWJwmL2aJCXwsCFldP ymCS1cVEBsqodfUw6SPIBT UiwgQkVUVFkgTDwvdGQ+PH SlBUA3iRrt HYpiYLItzL1iKPMrQ2p7Zl VfOdA3ZJwdM0XxPONgspec Ki75rO5hVhTfTgO0MTmfH3 PksmB8NRQc kETuHBfjSVE5L18uj5K7LR YtWSPwYKE3wYX4lI9dmQes bjogbGVmdDsgdmVydGljYW vgDDopT799 ZRBkuUyeMkPrIvV2YzL8Jf Y0E7KpIek4DNHigHjdFK0g tNScXHwiRs5hlRetqLtgWH 4wNTBpbjtw STAyzN1gWOItkMZmgZtuZC 3zUBSmrtfph878SqVkRAY5 VUGziFEnE0EvqD5vMqPxER DzLFRqX6Bk vWNzKObuM151EAwhIfJ8YD DvhlSzX6YoNZHzwQrtJuN9 e7A7Tu07KJPSPVJkrqjheB Q+PHRkIHN0 qUwfZYnpIFDurN4mEWFkE3 t8MdVzZiM0SDibN4EoIRBm kfbzKz14kK4nAtKwArG2II clZ4NreiR2 FIAhpLEdDDpnOMF1P98ng1 K7RBPrFLShBLY3nEX7uW6b bGlnbjogbGVmdDsgdmVydG ljYWwtYWxp O313JYYssGlwChCblUSgYA wvdGQ+GNXhDWM2fEmkTAsr LDCprT5hXYZxS7u9KqFbQz I0GNdgZ3Aq JSXhwlbrEm57dU9hEhNpRp S5ZXdoE9XnonU9TNPcpDZo PYnnBOV1G79jh3D9DRBlGB GdXLP2aBJ0 bV7wwJahfxclzEIxoIccqw KeuRvcRZloYFuiT574IZVw fWqgUd90eQZwvXypxxX0I7 RkPjwvdHI+ RL94FFYpBB72tOTfzPZef3 eanIf6UyBrAGAtEJQ2lPez DMval9SuECXgU87doNFjl8 L5BKSvsYgm lGSpIeXdqMG2uW1gGChdoc peq3sshtdaDinta2jqze83 gK23L44fTNbeGWUiKWDiYS UiIHZhbGln qv8uiT4yOt1+BDFokGF8qS I8bK6cAtQbRaC8TQwoM075 XbNyqSLuAhlbj6lco7bfpF s0TbVhMQUa loVxqGhcJZF9w8UoMb67H4 9sIHdpZHRoPSIyMCUiIHZh rBlrgr1wxH7pWi9+PC9jb2 ldth36dX12 dHI+XBUmNPA7jMerIYmhXO SxbR3oVXylNlW4HKRdSxTa eR93kPCrDLfvDw5reLqvbT goXR4dTFEr pydvq214ZuFfl9duUNQvjF YoTYcpDSK5W91tg2B3BIDd AGBkEUJ8aKW3bM7kkOtjzo ogbGVmdDsg jnIwgZfhIGxbOGoyD787KX WuwYbcNkZwmMRcD0kqhdFF PA9tIppaaFR+PBXoYHU8iZ xlPSdwYWRk vO4iUQWjF6h4RqEmUgK8LL vaK5ZyvxG7YJHdaWLcYNLl nPXNkU2mdlvac1tnqdleFf AwMDAwMDt0 TRm6JSAamDziKqUaVQY2My G5DNK7oUQfkD0fjGvpmzhp zV3zPep+RklOOjwvdGQ+PH YkYFY1hUkp TRewLRDmlN7gRYEbG3b7Dw GyYrO9LLloS4VtlqZ4LDBa bPZmVXOilEHKwU0aprazv5 xvcjogIzAw RZYeXVx7DWb7WYUckIycMz QbRVB8VxA0TGZ6wONvbG6k iVnjjbqvsD3dYpv+TVJOOj wvdGQ+PHRk OEU7xUtlCUpgUNKkhQ1aHD OkE2m9ZiBrNhG7EVymL0Rq bnW7GAOrrLCkJTWeqDHKxM 4zfxvjc7rk vxqpKtLaCXMyOLh1BYb7UW QllJlbXpIeZXR7HmD6BKR9 vSZsyL5cpVxzllhdnB9xOv c+VNL9LDE6 XK49KW67N6JxYwgqqZFjhA U+PHRhYmxlIHdpZHRoPScx NFAbWdCjmNdbBY1gUj9eXN VyLWNvbGxh cHNl (more content not included)... [facility] Coding Summary.on 12-27-2021 Coding Summary. CD:[id number]:[id number] Gh 0bWw+PGhlYWQ+UM6GEJRcU 52sxVHuwN9GM2aBDO6ADGH NTGOUSD2YDW1eiOC6GOmdV 2VybiAv PaamvIQmPK96KKm9GBQ8zF chHZeyxI2vfGWsY8q6DeQj YZ52oO37FHpvLMZqXsW9Dz ZpbjsgbWFy B1qsJvHiyBKmXvz+PHRhYm xlIHdpZHRoPScxMDAlJyBz aUsiTZ1zHj7sXRQyBIMgbN xhcHNlOiBj y6kxSZNyXPusEH4dbDwbW3 HtsQU6NFSqq4x9Km58lAY+ DWJvPFS2fBvbAUtox015Di Aym4stYLI7 hWAdJBcsWZQ3L98dk9P6FJ SqMBRmFDY7qVF4jH7rtBjo rrboL6RdiKOrBaU7ZBZ0hD BtrH4ujPtd jeqbgB3fUka+Z98TUT2XPK IFBY7YIzg1T5XfLedvoGT+ YY72SUXmHT40pJQagRVgc0 qxhQy5YwLz RVUlMRH4iCjiVDmec7JsIZ GdG36rnNTup3X8ATKflGyi bJWdQxMyzPZ5cT1zYWgppx npv6wkinmm Ivghy2npvp44cT43V11gFI ckAWOqGED6RHMaBYHriYer ke3ecF8jIn3+IWgiw5ujc2 dvjBl8WoYd RNRyroSsvUchUTB9g1GyRb 33B8OpsGgbb0OvYju7pr14 oCRys2D0nFW3QHyoEPBzsS 0bHTwwXdR5 IMBrCmUjvF53kIXoVFcpTj 4igBdqwMsgZP2gDAOpeisj WDJzzJ9zDDCfoJFthDhcEB 4wNTBpbjtm j605LiUvIGO5GHEtmGUrE1 FgmU4vClHgSCVkXKJuO3Cr kPJpEHnsN557BGwgKlX4AX WyflXuB7Fh SBRwlBztMhC6l4V9Hw7Qg4 WadvbdWVI9XKndSUElGeI0 YmNkWjP6J2TyOea6GFNysM nsPP7sW8Mq KGMucycimybmhUM9BHMsSB ZinQ39xZAbQQosDg5ol8Z1 n367QXHnLUQsoM55Os0gfB ogMTBwdCBU nN2crzgig9dsxtboYeCsIB MuUQe3IXx2KVBuyVmjKuDr WMU3KbW9KPE1cSZdfU7tkG vtrmwhjY6b Oyc+K05qgU1mNEV3OMB4wr ddZIMvcgGsZB99QY94P4Kw PjwvdGFibGU+PGRpdiBzdH luJU0wUuYh j3qfc6DzGMawN7YhFYFlMD gpMza2LQXzICE5aKC8oO8j PAQtTYgvi1N1bGD2B9Oaib Muiw7ct6zs XVHnIHilN28emVTnu0J3CK OpfCZ5HOGvkVpkQxFcoC55 Oyc+TWLmhKexm4MoNfefl1 xle3twcYa8 FsHeTTXhjsPztQqyCPS4u6 EbSx97K19vCCdsVMRlXUNw LXRqNVVxuSdyix1pbY3dMl 8+PGNvbCB3 tDW8kJ0tQMMzOgX6KOatV1 72ZoMwlAJdRkopp5uur7fi oRh0CaXnOYWislNgoVnrHQ R9o0MkFe28 T64lOSojXEOrECWtNHHxXQ MtaUcmqu1qzK2jGz8+PC9j r5gxpl41yK28fVV+PHRkIH S6uAclXWde ITFwcQ4dFFbfEoR8YBHeMg JbwI51vGSrCFieUy6qfLkh zCelPA2kRZPbrqehm179At Zwh2gvRJVt nVNpIRrzJKK9B67rn2F6CS OpVEKhWWQ6bAD7cM7xzBuq bjogbGVmdDsgdmVydGljYW hgKAvqS041 IHRvcDsnPlBhdGllbnQgTm BpSNw9R2ToFme3SVNglKws NV6ngDPbIWqpSd0ejPgpvN jcZG9oKFFp vekfm388LdJmv5twHFTsfC UiBNefWFC5J55ma5O2KEZj DIIkVLU1iMJ1nY4wkBwcfp ogbGVmdDsg vhAhxJmyUQzaAEfsL468VJ RvcDsnPkJpcnRoIERhdGU6 EM66AW89nHIyc9F8rWR3I2 BhZGRpbmct vpfpqIQ6OVSjBKXhcF08Du 6ztRhpId3dGQTtXAK3FCBh hNEnN4HnlW9qRgDrSPXyGU WyG9RhuYQc QUyqP306KHnkUgC1GVZxgz NnN1JbUHHigVbiQqG8q0L7 Na3IE0F4YW57IU45yEFjl4 B0uOS1Q3Do OHXgkitfrfdeeSZ5QKHwBL HeuO56Cv9znUzqEx6yZHIw MCI3SFAyoRHvQ3CskA3aDb AjMDAwMDAw T3QniLTiWMzuW371WNosGs T3JSRywyKoK9FaDRTrsVlt IoI4q4Y9Qw3VAPd9NN49DN 24hOQop9J0 tLC8E2BuBVLssexkfycqhX Z4AFHjGTEadH11Yd7dbXbb Yd9qCPLxQPI7AVBjcIUwA5 JtqU6eMnIz LROzRQStJ6UboAMyUKwmN1 48CMqqYqX4MHOvusYdX4Hh TCXvvZmdWrO1j5H1Hu4JWC NcZH62JML5 qQK8VJ59KD03L5RkTvcsoE FibGU+PHRhYmxlIHdpZHRo XIndWVArJfQjxVhhZC7hWu 9yZGVyLWNv oNjgaPYoHoBya7dxJTZlTT pjQS2bsFdkE1TjnUA7NZMa w1e3Sk21G37jR3QofUD+PG MpdCK6cNG5 xT2qBkOnWiA5OWyhT030Ql DxmDRpWkopd6adc8rgsDl0 BgJ7MLWieaYhcKcuSPV8e9 WcYp08A88l IHdpZHRoPSIxNSUiIHZhbG tvcw7thJ3cMe3+PGNvbCB3 zAN6uI3lHvVqOaX1KZljJ4 49InRvcCIv Kdmzt3bhw8qexRe6YjYmUK MegoIzcUcyJCS2x2WpVl51 Q5OpfTule5WcMkw7fu24zA Fdb6H9fLZ3 G1IcXVAiovduyUAceIqeHY 8xHUMnomvcKJHfgF1yYJTa P2n6LmUrZoY0MWidZ4Cfca X5VPCquFPr UFphTWL4H76ii6Q4NOQqCQ BvUYX6wWB7eV4bfRocwqta bGVmdDsgdmVydGljYWwtYW gaX236MVCj zRxtYULwaE4rXTOzcFVpmC jpFA4iWUGcwukvWi0THANM UiwgQkVUVFkgTDwvdGQ+PH PxYSU9aKkf COwsQFSppK7iVGChC0t8Ku MoEkF5FMyaI2JhADYylpti Ja32gK1aLvAcYpW8GOwdD1 WfpzQ0KUXi cIHxXQjcUZG6N54kn1L8JC ZtBFIeWMX3dYK1nQ9kbDiw bjogbGVmdDsgdmVydGljYW oqQDavR178 OOZnpZvkCiZbKzG4ElA8Zp B2A2EwRze0BOIbeXnzQF8f jPRpQRoeHo7reMkjoSyfHN 4wNTBpbjtw GVQyoZ6gFAXiyWWqkYeySV 6tDIZyecyws041UhKjDMW9 GGBcvRAkR2LgvD3vSwXjYT GcEGGjP8Bc dVXoZPxuT905GMfzVvJ6LJ GunkKvS8HkVLGtmMfkEhI5 i2J4Uf70SOUFBDRxjjgsnD Q+PHRkIHN0 bYdjGPljVUPbaA6wNOPvE4 e9ZiYnWsG4FXctC4UwSYRr boezTs61kK7uGoOxLsI8RS urH7DizvD3 FGObwFRoVDbpQJD0A10di7 A0AICsKIKbWGO1oVT8iX2c bGlnbjogbGVmdDsgdmVydG ljYWwtYWxp S797KKObqNvsWyMaiUQzCQ wvdGQ+JPXsYNE3iBlcADyn GPDomU5xJXPlR2y9NnXrQk R6SQinJ3Yh PWOxqtudNk67pF0eMsYiVd G0NXtwJ2LxseR6FTZblWNe YTlxAVK0T96gd0F3VFNoFE FyIKX0wVO5 tY4bwGakjwvyzGQayKtyuq GqzGjlMUlxGIugC559WODe dWrkNi80eCWmkQurjqZ2C1 RkPjwvdHI+ RL10RWJzXT26iRDjhQYbb9 zgiSm6KuWjOQWmHPW8tTxr DVtpg4YcQWJcA24xvWZms8 Q9CKPaoBqf nXPaCdWimVF6mI6tZJiypi rpx9ecvuutFxgiv0bcbg16 mI08J92cZTknPRYuQBZwKE UiIHZhbGln zc9tvT4sIs7+LQWxjID0nG X6aF2yUtPtLxY6GRzgN446 IiMeuOBoQstzi5wfk6dmbO b3OhUwNAIw ioIyuWjuSTZ7n0ThYs61F5 9sIHdpZHRoPSIyMCUiIHZh iLghaj2rqK8gMq9+PC9jb2 eqsm17sN27 dHI+OKZvBKG9jCkkIZcfSB GojY2fBTemZeT7TWAsFzLt dB43pMKiVAktEg5bnCtarG yiGX2rIBGd ftgsg849TlMrz1qcFDOpmX JuIYzrKHP8Q41ib6V1YURw ILZoWMX8fUG1fN4paBxvrt ogbGVmdDsg enPgeSqrCClfTWfrZ170KZ OkuWllLpIcvWKtH4khdwSF AT3iBhtinZG+QAAeNIJ5wW xlPSdwYWRk mS6kYSLxA9f6UrUlUzS5EC zhH9CezcU1STGpyUUjYDXm eSTEsD4ljqslo8pmpbqpQg AwMDAwMDt0 NVg4QTChkNxcLdOhLGL8Fq I4CEP3eVCveP3ppObwmvpz tC4yHlc+RklOOjwvdGQ+PH BfFBL5yVpo IEvuMEBmpI8fYISiQ3q5Wb NgCdI6IAoaV2AdvdG0MHJo nXEfZUXrlCHMvM6yratpv1 xvcjogIzAw LGKsUPf4NUa5DSOvpCqrLf HhALJ5LxG4KFM9fFCacJ7f bRrljtoihN8pXfv+TVJOOj wvdGQ+PHRk XKB9dYdhEZlkJTJnfZ6uWB HlG8g8KoOaGhM9DUfxC6Qm noS2KFNqjIGvWQJxsNALjO 9vrkveg2vn yfjkOhGrMIRfPKr8ZVu1DJ QpuQckPiSzCEK2MkO3WIW3 hJWlyA0nlPjknaofaF8sTp c+DIJ6BPQ7 IQ39JO33Q6SnKjruzQYewH U+PHRhYmxlIHdpZHRoPScx LSHdTkUxjZelEX2wEy1mJT VyLWNvbGxh cHNl (more content not included)... Normal [facility] Consent for Treatmenton 12-01 Consent for Treatment [id number] 0CD:127 Normal [facility] BMPon 12-19-2021 Anion gap [Moles/Vol] 14 mmol/L Normal -16 [facility] Comment on above: Performed By: #### 1 [id number], [id number], [id number] #### [facility] [address] [place] [address] Calcium [Mass/Vol] 9.6 mg/dL Normal 8.9-11.1 [facility] Comment on above: Performed By: #### 1 [id number], [id number], [id number] #### [facility] [address] [place] [address] Chloride [Moles/Vol] 105 mmol/L Normal 101-111 [facility] Comment on above: Performed By: #### 1 [id number], 2684460, 5902072 #### [facility] [address] [place] [address] CO2 [Moles/Vol] 27 mmol/L Normal 21-31 [facility] Comment on above: Performed By: #### 1 [id number], 3354160, 8602105 #### [facility] [address] [place] [address] Creatinine [Mass/Vol] 0.9 mg/dL Normal 0.5-1.3 [facility] Comment on above: Performed By: #### 1 [id number], 0783517, [id number] #### [facility] [address] [place] [address] Glucose [Mass/Vol] 95 mg/dL Normal 55-199 [facility] Comment on above: Result Comment: If t his glucose result represents a fasting glucose, interpretation should refer to the following reference range: 55-99 mg/dL Performed By: #### 1 [id number], [id number], 8773159 #### [facility] [address] [place] [address] Potassium [Moles/Vol] 4.3 mmol/L Normal 3.5-5.3 [facility] Comment on above: Performed By: #### 1 [id number], 4261717, 9935759 #### [facility] [address] [place] [address] Sodium [Moles/Vol] 142 mmol/L Normal 135-145 [facility] Comment on above: Performed By: #### 1 [id number], 3104698, 3505370 #### [facility] [address] [place] [address] Urea nitrogen [Mass/Vol] 23 mg/dL High 5-21 [facility] Comment on above: Performed By: #### 1 [id number], 8274901, 5967902 #### [facility] [address] [place] [address] Urea nitrogen/Creatinine [Mass ratio] 26 No Units High 10-20 [facility] Comment on above: Performed By: #### 1 [id number], 9336920, 7202242 #### [facility] [address] [place] [address] CBC w/Indiceson 12-19-2021 Erythrocyte distribution width (RBC) [Ratio] 13.3 % Normal 10.9-14.2 [facility] Comment on above: Performed By: #### 1 [id number], 1991013, 0183457 #### [facility] [address] [place] [address] Hematocrit (Bld) [Volume fraction] 38.6 % Normal 34.0-46.0 [facility] Comment on above: Performed By: #### 1 [id number], 0730090, 8284869 #### [facility] [address] [place] [address] Hemoglobin (Bld) [Mass/Vol] 13.6 g/dL Normal 12.0-16.0 [facility] Comment on above: Performed By: #### 1 [id number], 2235379, 8334875 #### [facility] [address] [place] [address] MCH (RBC) [Entitic mass] 31.1 pg Normal 27.0-34.0 [facility] Comment on above: Performed By: #### 1 [id number], 3721867, 7085158 #### [facility] [address] [place] [address] MCHC (RBC) [Mass/Vol] 35.2 g/dL Normal 31.4-36.0 [facility] Comment on above: Performed By: #### 1 [id number], 9503662, 4375136 #### [facility] [address] [place] [address] MCV (RBC) [Entitic vol] 88.2 fL Normal 80.0-100.0 [facility] Comment on above: Performed By: #### 1 [id number], 0576722, 9167074 #### [facility] [address] [place] [address] Platelet mean volume (Bld) [Entitic vol] 8.2 fL Normal 6.4-10.8 [facility] Comment on above: Performed By: #### 1 [id number], 9102634, 0463753 #### [facility] [address] [place] [address] Platelets (Bld) [#/Vol] 231.0 E9/L Normal 150.0-500.0 [facility] Comment on above: Performed By: #### 1 [id number], 9666593, 9286427 #### [facility] [address] [place] [address] RBC (Bld) [#/Vol] 4.4 E12/L Normal 4.3-5.9 [facility] Comment on above: Performed By: #### 1 [id number], 7243197, 3042518 #### [facility] [address] [place] [address] WBC corrected for nucl RBC Auto (Bld) [#/Vol] 4.5 E9/L Normal 4.0-11.0 [facility] Comment on above: Performed By: #### 1 [id number], 4609037, [id number] #### [facility] [address] [place] [address] Consent for Treatmenton 12-01 Consent for Treatment [id number]#1.0 0CD:127 Normal [facility] Physician Orderon 12-19-2021 Physician Order [id number]#1. 00CD:127 Normal [facility] XR Chest 2 Viewson XR Chest 2 [...] Diop MD, V. Transcribed by: DELICIA Technologist: Normal [facility] eGFRon 12-19-2021 GFR/1.73 sq M.predicted among blacks MDRD (S/P/Bld) [Vol rate/Area] mL/min/{1.73_m2} Normal >=59 [facility] Comment on above: Order Comment: Order added by Discern Expert. Result Comment: eGFR is race adjusted. AA=. Performed By: #### 1 [id number], 5441259, 6240528 #### [facility] [address] [place] [address] GFR/1.73 sq M.predicted among non-blacks MDRD (S/P/Bld) [Vol rate/Area] mL/min/{1.73_m2} Normal >=59 [facility] Comment on above: Order Comment: Order added by Discern Expert. Result Comment: Die Designer kary kidney disease could be indicated at eGFR's of less than 60 mL/min/1.73m2. Kidney failure is indicated at less than 15 mL/min/1.73m2. Performed By: #### 1 [id number], 8445044, 2659725 #### [facility] [address] [place] [address] Physician Orderon 12-06-2021 Physician Order [id number]#1. 00CD:127 Normal [facility] RAD - MISCon 11-04-2021 RAD - MISC [id number]#1. 00CD:127 Normal [facility] MR knee RT wo conon 08-30-20 21 MR knee RT wo [facility] [place] [address] MRI Report Signed Patient: Cony Matos MR#: [id number] [birth year] : 1960 Acct:[id number] Age/Sex: 60 / F ADM Date: 08/30/21 Loc: [facility] Room: Type: [facility] CLI Attending Dr: Jose A Petersen MD [...] Jamarcus Prado M.D.08/30/2021 11:36 AM Dictation Location: [facility] Transcribed By: BIJAN 08/30/21 1136 Dictated By: Jamarcus Prado II, MD 08/30/21 1120 Signed By: 08/30/21 1136 [facility] XR knee RT 2Von 08-22-2021 XR knee RT 2V [facility] Main [place] [address] [place] [address] XRay Report Signed Patient: Cony Matos MR#: [id number] [birth year] : 1960 Acct:[id number] Age/Sex: 60 / F ADM Date: 08/22/21 Loc: [facility] Room: Type: [facility] Attending Dr: Jose A Petersen MD [...] Jamarcus Prado M.D.08/22/2021 1:26 PM Dictation Location: [place] [address] Transcribed By: BIJAN 08/22/21 1326 Dictated By: Jamarcus Prado II, MD 08/22/21 1325 Signed By: 08/22/21 1326 [facility] Cardiovascular Lab Reporton 05-17-2019 Cardiovascular Lab Report [facility] Patient Name: [facility] Ceasar MR #: [id number] Department of Physician: Rico James M.D. Division of Service Date: 05/17/2019 Cardiology Birthdate: 1960 Adult Cardiovascular Room #: [address] [place] [address] Cardiovascular Laboratory Report INDICATION: The patient is [...] signed informed consent. 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 The right neck area was prepped and draped in usual fashion. Using ultrasound guidance and micropuncture technique, the right internal jugular vein was accessed. A 6-Chilean x 11 cm sheath was placed. A 6-Chilean Irvin catheter was used for right heart catheterization with measurement of pressures and calculation of cardiac output using the estimated Sherman method. Irvin catheter was removed. Jamar's test was favorable on the right. Access in the right radial artery was obtained using micropuncture technique, a 5-Chilean 11 cm Hydrophilic sheath was advanced. Verapamil was given through the sheath and heparin was administered intravenously. Bilateral selective coronary angiography was then performed using a 6-Chilean JL5 diagnostic catheter. This catheter was removed. [...] James M.D. Date Trans: 05/17/2019 01:54 P/timoteo [id number] cc: Paddy Stone M.D. [address] [address] [facility] Vital Signs Date Time Vital Sign Value Performing Clinician Veneciai jerosn 08-22-2021 10:00-0400 Body height 167.64 cm Jose A Petersen Other [facility] Other 08-22-2021 10:00-0400 Body mass index (BMI) [Ratio] 25.01 kg/m2 Jose A Petersen Other [facility] Other 08-22-2021 10:00-0400 Body weight 70.31 kg Jose A Petersen Other [facility] Other Encounters Encounter Date Encounter Type Care Provider Facility Start: 04-02-2023 End: 04-03-[address] PADDY STONE . Facility:[facility] Start: 11-08-2022 Encounter for genera l adult medical examination without abnormal findings DR PADDY STONE . [facility] Start: 11-03-2022 End: 11-03-[address] [...] End: 10-03-2021 ambulatory Jose A Petersen Other [facility] Start: 10-03-2021 Telephone encounter Jose A Petersen [facility] Start: 08-22-2021 Office outpatient ne w 45 minutes Jose A Petersen [facility] Start: 05-17-2019 End: 05-18-2019 Patient encounter procedure PROVIDER UNKNOWN Facility:[facility] Payers Date Payer Category Payer Unknown [id number] [id number] 1960 Unknown [id number] 2.16.84 [id number] 1960 Unknown [id number] 2.16.84 [id number] 1960 Unknown [id number] 2.16.84 [id number] 1960 Unknown [id number] 2.16.84 [id number] 1960 Unknown [id number] 2.16.84 [id number] 1960 Unknown [id number] 2.16.84 [id number] 1960 Unknown [id number] 2.16.84 [id number] 1960 Unknown [id number] 2.16.84 [id number] 1958 Self-pay 1958 Unknown [id number] Social History Date Type Detail Facility Sex Assigned At [facility] Other Evaluation note 08-22-2021 Note Date & [...] of pain and plan potential surgical treatment. [facility] Other Evaluation note Note Date & Type Note Facility Evaluation note No Information [employer] Other History general Narrative - Reported Note Date & Type Note Facility History general Narrative - Reported Type Surgical History C section x3 Surgical History hysterectomy Surgical History gall bladder Hospitalization History see above [facility] Other Summary Purpose Family History No Family [...] and content) DATE CREATED AUTHOR 07/12/2019 [facility] DATE CREATED AUTHOR AUTHOR'S ORGANIZ ATION 01/16/2022 [facility] DATE CREATED AUTHOR AUTHOR'S ORGANIZ ATION 02/21/2022 [facility] DATE CREATED AUTHOR AUTHOR'S ORGANIZ ATION 10/03/2022 [facility] dical Specialist DATE CREATED AUTHOR AUTHOR'S [...] BE BASED ON THE PRIMARY CLINICAL RECORDS. [employer] provides no warranty or guarantee of the accuracy or completeness of information in this document.
[2024-03-11 07:23] LABS: Basophils Absolute Auto 0.1 10^3/uL (0.0-0.1); Eosinophils Absolute Auto 0.5 10^3/uL (0.0-0.7); Eosinophils Percent Auto 11.4 % (0.9-7.0); Hematocrit 41.2 % (36.0-48.0); Hemoglobin 13.8 g/dL (12.0-16.0); Lymphocytes Percent Auto 49.6 % (20.5-60.0); Mean Corpuscular HGB Conc 33.5 g/dL (29.9-35.2); Mean Corpuscular Hemoglobin 29.9 pg (26.7-34.0); Mean Corpuscular Volume 89.4 fL (81.0-99.0); Mean Platelet Volume 9.4 fL (9.5-13.5); Monocytes Absolute Auto 0.4 10^3/uL (0.3-0.8); Monocytes Percent Auto 9.9 % (1.7-12.0); Neutrophils Absolute Auto 1.1 10^3/uL (1.4-6.5); Neutrophils Percent Auto 27.1 % (43.0-75.0); Platelet Count 235 10^3/uL (150-450); Red Blood Count 4.61 10^6/uL (4.20-5.40); Red Cell Distribution Width 12.9 % (11.0-15.0); White Blood Count 4.1 10^3/uL (4.0-11.0)
[2024-03-11 08:21] LABS: Alanine Aminotransferase 23 U/L (14-59); Albumin Level 3.6 g/dL (3.4-5.0); Alkaline Phosphatase 103 U/L (46-116); Anion Gap 13.4; Aspartate Amino Transferase 18 U/L (15-37); BUN Creatinine Ratio 20.7; Bilirubin Total 0.5 mg/dL (0.2-1.0); Calcium 9.5 mg/dL (8.5-10.1); Carbon Dioxide 27.6 mmol/L (21.0-32.0); Chloride 104 mmol/L (98-107); Estimated GFR (African America >60 (>=60); Estimated GFR (Non-African Ame >60 (>=60); Free T3 3.16 pg/mL (2.18-3.98); Globulin 3.7 g/dL; Glucose 85 mg/dL (74-106); Sodium 141 mmol/L (136-145); Total Protein 7.3 g/dL (6.4-8.2)
[2024-03-11 14:42] LABS: Estimated Average Glucose 94 mg/dL; Glycohemoglobin A1C 4.9 % (4.5-6.2)
== END 2024-03-11 06:35 | disposition home or self-care (01) ==
LOC: LAB 06:37
PROVIDERS: PCP Family Medicine; Visit Provider Family Medicine
DX: L65.9 Nonscarring hair loss, unspecified (principal); J18.9 Pneumonia, unspecified organism; J30.9 Allergic rhinitis, unspecified; R73.09 Other abnormal glucose; D64.9 Anemia, unspecified; E55.9 Vitamin D deficiency, unspecified
CPT/HCPCS: 36415; 80053; 82306; 83036; 83540; 84436; 84443; 84481; 85025

== ENCOUNTER 2024-03-14 06:32 | Outpatient (OUT) | payer OTHER, SELFPAY ==
--- OUTSIDE RECORDS SUMMARY | 2024-03-14 06:35 | XMS_ITS | CCD ---
Author Organization [facility] Care Team Providers Care Associate Professor Of Library Media Name Role Phone UNKNOWN, PROVIDER Admitting Unavailable [...] Acetaminophen / oxyCODONE Drug Allergy 10-19-20 [facility] Repository (1 source) Sulfamethoxazole / Trimethoprim Drug Allergy 05-17-20 19 [facility] Repository (2 sources) Acetaminophen / oxyCODONE Drug Allergy Unknown [employer] Other (4 sources) Latex Propensity to adverse reactions Unknown [employer] [facility] [employer] Other (2 sources) Sulfacetamide / Sulfur Drug Allergy Unknown [employer] Other (2 sources) Sulfamethoxazole / Trimethoprim Drug Allergy Unknown [employer] Other (2 sources) Codeine Drug Allergy 10-12-20 14 [facility] Repository (2 sources) Latex Drug allergy (disorder) 10-25-20 14 [facility] Repository (1 source) Sulfamethoxazole / Trimethoprim Drug Allergy 01-08-20 17 [facility] Repository (1 source) Sulfonamides (Antibiotic) Drug allergy (disorder) 01-08-20 17 [facility] Repository Problems Active Problems Problem Classification Problem [...] 04-02-2023 Creatinine [Mass/Vol] 0.80 mg/dL Normal 0.55-1.02 [facility] Comment on above: Performed By: #### L IPID, CMP, T7, TSH #### [facility] [address] [address] [address] Nga Ribeiro EGFR-AF GUINEAN >60 Normal >=60 [facility] Comment on above: Performed By: #### L IPID, CMP, T7, TSH #### [facility] [address], [place] [address] Dr. Nga Ribeiro EGFR-NON AF GUINEAN >60 Normal >=60 [facility] Comment on above: Performed By: #### L IPID, CMP, T7, TSH #### [facility] [address], [place] [address] ABD/PELV W CONon [...] WALDO BUSTAMANTE Date: 2023-04-02 15:30 Normal [facility] OCC BLD IMMUNO SCREENon OCCULT BLOOD Negative Normal NEGATIVE [facility] Comment on above: Performed By: #### O BSCRN #### [facility] [address] [place] [address] Dr. Nga Ribeiro INSULINon 10-31-2022 Insulin 8.8 uIU/mL Normal 2.6-24.9 [facility] Comment on above: Performed By: #### L IPID, CMP, T7, TSH #### [facility] [address] [place] [address] Dr. Nga Ribeiro CBC AUTO DIFFon 10-30-2022 BASO # 0.1 103/ul Normal 0.0-0.1 [facility] Comment on above: Performed By: #### L IPID, CMP, T7, TSH #### [facility] [address] [place] [address] Dr. Nga Ribeiro Basophils/100 WBC (Bld) 1.4 % Normal 0.2-2.0 [facility] Comment on above: Performed By: #### L IPID, CMP, T7, TSH #### [facility] [address] [place] [address] Dr. Nga Ribeiro EO # 0.3 103/ul Normal 0.0-0.7 [facility] Comment on above: Performed By: #### L IPID, CMP, T7, TSH #### [facility] [address] [address] [address] Nga Ribeiro Eosinophils/100 WBC (Bld) 6.3 % Normal 0.9-7.0 [facility] Comment on above: Performed By: #### L IPID, CMP, T7, TSH #### [facility] [address] [address] [address] Nga Ribeiro Erythrocyte distribution width (RBC) [Ratio] 12.7 % Normal 11.0-15.0 [facility] Comment on above: Performed By: #### L IPID, CMP, T7, TSH #### [facility] [address] [place] [address] Dr. Nga Ribeiro Hematocrit (Bld) [Volume fraction] 40.4 % Normal 36.0-48.0 [facility] Comment on above: Performed By: #### L IPID, CMP, T7, TSH #### [facility] [address] [place] [address] Dr. Nga Ribeiro Hemoglobin (Bld) [Mass/Vol] 13.8 g/dL Normal 12.0-16.0 [facility] Comment on above: Performed By: #### L IPID, CMP, T7, TSH #### [facility] [address] [place] [address] Dr. Nga Ribeiro IG # 0.01 10e3/ul Normal 0.00-0.03 [facility] Comment on above: Performed By: #### L IPID, CMP, T7, TSH #### [facility] [address] [place] [address] Dr. Nga Ribeiro IG % 0.2 % Normal 0.0-0.5 [facility] Comment on above: Performed By: #### L IPID, CMP, T7, TSH #### [facility] [address] [place] [address] Dr. Nga Ribeiro LYMPH # 1.9 103/ul Normal 1.2-3.8 [facility] Comment on above: Performed By: #### L IPID, CMP, T7, TSH #### [facility] [address] [place] [address] Dr. Nga Ribeiro Lymphocytes/100 WBC (Bld) 46.4 % Normal 20.5-60.0 [facility] Comment on above: Performed By: #### L IPID, CMP, T7, TSH #### [facility] [address] [place] [address] Dr. Nga Ribeiro MANUAL DIFF REQ NO Normal [facility] Comment on above: Performed By: #### L IPID, CMP, T7, TSH #### [facility] [address] [place] [address] Dr. Nga Ribeiro MCH (RBC) [Entitic mass] 30.6 pg Normal 26.7-34.0 [facility] Comment on above: Performed By: #### L IPID, CMP, T7, TSH #### [facility] [address] [place] [address] Dr. Nga Ribeiro MCHC (RBC) [Mass/Vol] 34.2 g/dL Normal 29.9-35.2 [facility] Comment on above: Performed By: #### L IPID, CMP, T7, TSH #### [facility] [address] [place] [address] Dr. Nga Ribeiro MCV (RBC) [Entitic vol] 89.6 fL Normal 81.0-99.0 [facility] Comment on above: Performed By: #### L IPID, CMP, T7, TSH #### [facility] [address] [place] [address] Dr. Nga Ribeiro MONO # 0.4 103/ul Normal 0.3-0.8 [facility] Comment on above: Performed By: #### L IPID, CMP, T7, TSH #### [facility] [address] [place] [address] Dr. Nga Ribeiro Monocytes/100 WBC (Bld) 9.1 % Normal 1.7-12.0 [facility] Comment on above: Performed By: #### L IPID, CMP, T7, TSH #### [facility] [address] [place] [address] Dr. Nga Ribeiro NEUT # 1.5 103/ul Normal 1.4-6.5 [facility] Comment on above: Performed By: #### L IPID, CMP, T7, TSH #### [facility] [address] [address] [address] Nga Ribeiro Neutrophils/100 WBC (Bld) 36.6 % Critically low 43.0-75.0 [facility] Comment on above: Performed By: #### L IPID, CMP, T7, TSH #### [facility] [address] [place] [address] Dr. Nga Ribeiro Platelet mean volume (Bld) [Entitic vol] 9.2 fL Critically low 9.5-13.5 [facility] Comment on above: Performed By: #### L IPID, CMP, T7, TSH #### [facility] [address] [place] [address] Dr. Nga Ribeiro PLT 194 103/ul Normal 150-450 [facility] Comment on above: Performed By: #### L IPID, CMP, T7, TSH #### [facility] [address] [place] [address] Dr. Nga Ribeiro RBC 4.51 106/ul Normal 4.20-5.40 [facility] Comment on above: Performed By: #### L IPID, CMP, T7, TSH #### [facility] [address] [place] [address] Dr. Nga Ribeiro WBC 4.2 103/ul Normal 4.0-11.0 [facility] Comment on above: Performed By: #### L IPID, CMP, T7, TSH #### [facility] [address] [place] [address] Dr. Nga Ribeiro FREE THYROXINE INDEX T7on FTI 2.66 Normal 1.30-4.50 [facility] Comment on above: Performed By: #### L IPID, CMP, T7, TSH #### [facility] [address] [place] [address] Dr. Nga Ribeiro T3U 36.0 % Normal 30.0-39.0 [facility] Comment on above: Performed By: #### L IPID, CMP, T7, TSH #### [facility] [address] [address] [address] Nga Ribeiro T4 [Mass/Vol] 7.40 ug/dL Normal 4.80-13.90 [facility] Comment on above: Performed By: #### L IPID, CMP, T7, TSH #### [facility] [address] [address] [address] Nga Ribeiro GLYCOHEMOGLOBIN A1Con 2021 ADA RECOMMENDATION SEE BELOW Normal [facility] Comment on above: Result Comment: ADA RECOMMENDED LIMIT 4.0 - 6.0 ADA THERAPEUTIC TARGET < 7.0 ACTION SUGGESTED > 7.0 Performed By: #### A 1C #### [facility] [address] [place] [address] Dr. Nga Ribeiro Glucose [Mass/Vol] 94 mg/dL Normal [facility] Comment on above: Performed By: #### A 1C #### [facility] [address] [place] [address] Dr. Nga Ribeiro HbA1c (Bld) [Mass fraction] 4.9 % Normal 4.5-6.2 [facility] Comment on above: Performed By: #### A 1C #### [facility] [address] [place] [address] Dr. Nga Ribeiro IRONon 10-30-2022 Iron [Mass/Vol] 119.0 ug/dL Normal 50.0-170.0 [facility] Comment on above: Performed By: #### I CHARISMA #### [facility] [address] [place] [address] Dr. Nga Ribeiro LIPID PROFILEon 10-30-2022 CHOL-HDL RATIO NORM SEE BELOW Normal [facility] Comment on above: Result Comment: 3.3 - 4.4 LOW RISK 4.4 - 7.1 AVERAGE RISK 7.1 - 11.0 MODERATE RISK >11.0 HIGH RISK Performed By: #### L IPID, CMP, T7, TSH #### [facility] [address] [place] [address] Dr. Nga Ribeiro Cholesterol [Mass/Vol] 201 mg/dL Critically high <=200 [facility] Comment on above: Performed By: #### L IPID, CMP, T7, TSH #### [facility] [address] [address] [address] Nga Ribeiro Cholesterol in HDL [Mass/Vol] 78 mg/dL Critically high 40-60 [facility] Comment on above: Performed By: #### L IPID, CMP, T7, TSH #### [facility] [address] [address] [address] Nga Ribeiro Cholesterol in LDL [Mass/Vol] 108.8 mg/dL Normal [facility] Comment on above: Performed By: #### L IPID, CMP, T7, TSH #### [facility] [address] [address] [address] Nga Ribeiro Cholesterol.total/Ch olesterol in HDL [Mass ratio] 2.6 {ratio} Normal [facility] Comment on above: Performed By: #### L IPID, CMP, T7, TSH #### [facility] [address] [address] [address] Nga Ribeiro HDL NORMAL > or = 60 mg/dl - LO W CARDIOVASCULAR RISK <40 mg/dl - HIGH CARDIOVASCULAR RISK Normal [facility] Comment on above: Performed By: #### L IPID, CMP, T7, TSH #### [facility] [address] [address] [address] Nga Ribeiro LDL CALC NORMAL SEE BELOW Normal [facility] Comment on above: Result Comment: <100 mg/dl OPTIMAL 100 - 129 mg/dl NEAR OR ABOVE OPTIMAL 130 - 159 mg/dl BORDERLINE HIGH 160 - 189 mg/dl HIGH >190 mg/dl VERY HIGH Performed By: #### L IPID, CMP, T7, TSH #### [facility] [address] [address] [address] Nga Ribeiro Triglyceride [Mass/Vol] 71 mg/dL Normal <=150 [facility] Comment on above: Performed By: #### L IPID, CMP, T7, TSH #### [facility] [address] [address] [address] Nga Ribeiro VLDL CALC 14.2 mg/dL Normal [facility] Comment on above: Performed By: #### L IPID, CMP, T7, TSH #### [facility] [address] [address] [address] Nga Ribeiro PROF 14(COMP METB)on 022 Albumin [Mass/Vol] 3.8 g/dL Normal 3.4-5.0 [facility] Comment on above: Performed By: #### L IPID, CMP, T7, TSH #### [facility] [address] [place] [address] Dr. Nga Ribeiro Albumin/Globulin [Mass ratio] 1.1 {ratio} Normal [facility] Comment on above: Performed By: #### L IPID, CMP, T7, TSH #### [facility] [address] [place] [address] Dr. Nga Ribeiro ALP [Catalytic activity/Vol] 91 U/L Normal 46-116 [facility] Comment on above: Performed By: #### L IPID, CMP, T7, TSH #### [facility] [address] [address] [address] Nga Ribeiro ALT [Catalytic activity/Vol] 19 U/L Normal 14-59 [facility] Comment on above: Performed By: #### L IPID, CMP, T7, TSH #### [facility] [address] [place] [address] Dr. Nga Ribeiro Anion gap [Moles/Vol] 9.2 mmol/L Normal [facility] Comment on above: Performed By: #### L IPID, CMP, T7, TSH #### [facility] [address] [place] [address] Dr. Nga Ribeiro AST [Catalytic activity/Vol] 18 U/L Normal 15-37 [facility] Comment on above: Performed By: #### L IPID, CMP, T7, TSH #### [facility] [address] [place] [address] Dr. Nga Ribeiro Bilirubin [Mass/Vol] 0.5 mg/dL Normal 0.2-1.0 [facility] Comment on above: Performed By: #### L IPID, CMP, T7, TSH #### [facility] [address] [address] [address] Nga Ribeiro Calcium [Mass/Vol] 9.5 mg/dL Normal 8.5-10.1 [facility] Comment on above: Performed By: #### L IPID, CMP, T7, TSH #### [facility] [address] [address] [address] Nga Ribeiro Chloride [Moles/Vol] 105 mmol/L Normal 98-107 [facility] Comment on above: Performed By: #### L IPID, CMP, T7, TSH #### [facility] [address] [place] [address] Dr. Nga Ribeiro CO2 [Moles/Vol] 29.5 mmol/L Normal 21.0-32.0 [facility] Comment on above: Performed By: #### L IPID, CMP, T7, TSH #### [facility] [address] [place] [address] Dr. Nga Ribeiro Creatinine [Mass/Vol] 0.68 mg/dL Normal 0.55-1.02 [facility] Comment on above: Performed By: #### L IPID, CMP, T7, TSH #### [facility] [address] [place] [address] Dr. Nga Ribeiro EGFR-AF GUINEAN >60 Normal >=60 [facility] Comment on above: Performed By: #### L IPID, CMP, T7, TSH #### [facility] [address] [place] [address] Dr. Nga Ribeiro EGFR-NON AF GUINEAN >60 Normal >=60 [facility] Comment on above: Performed By: #### L IPID, CMP, T7, TSH #### [facility] [address] [place] [address] Dr. Nga Ribeiro Globulin (S) [Mass/Vol] 3.6 g/dL Normal [facility] Comment on above: Performed By: #### L IPID, CMP, T7, TSH #### [facility] [address] [place] [address] Dr. Nga Ribeiro Glucose [Mass/Vol] 100 mg/dL Normal 74-106 [facility] Comment on above: Performed By: #### L IPID, CMP, T7, TSH #### [facility] [address] [address] [address] Nga Ribeiro Potassium [Moles/Vol] 4.7 mmol/L Normal 3.5-5.1 [facility] Comment on above: Performed By: #### L IPID, CMP, T7, TSH #### [facility] [address] [place] [address] Dr. Nga Ribeiro Protein [Mass/Vol] 7.4 g/dL Normal 6.4-8.2 [facility] Comment on above: Performed By: #### L IPID, CMP, T7, TSH #### [facility] [address] [place] [address] Dr. Nga Ribeiro Sodium [Moles/Vol] 139 mmol/L Normal 136-145 [facility] Comment on above: Performed By: #### L IPID, CMP, T7, TSH #### [facility] [address] [address] [address] Nga Ribeiro Urea nitrogen [Mass/Vol] 19.0 mg/dL Critically high 7.0-18.0 [facility] Comment on above: Performed By: #### L IPID, CMP, T7, TSH #### [facility] [address] [place] [address] Dr. Nga Ribeiro Urea nitrogen/Creatinine [Mass ratio] 27.9 mg/mg Normal [facility] Comment on above: Performed By: #### L IPID, CMP, T7, TSH #### [facility] [address] [place] [address] Dr. Nga Ribeiro TSHon 10-30-2022 TSH 0.871 uIU/mL Normal 0.358-3.740 [facility] Comment on above: Performed By: #### L IPID, CMP, T7, TSH #### [facility] [address] [place] [address] Dr. Nga Ribeiro Covid-19 PCR (CVDTB)on 10-01 SARS-CoV-2 (COVID-19) RNA VALENTINA+probe Ql (Unsp spec) Not detected Normal NOT DETECTED [facility] Comment on above: Result Comment: When diagnostic [...] for this test is supported by the [place] of Health and Human Service's declaration that [...] used). Performed By: #### C VDTB #### [facility] [address] [place] [address] Dr. Nga Ribeiro INFL[facility]ENZA [facility] 10-[facility] Normal [facility] Comment on above: Result Comment: Nega tive for Flu A protein angiten. Infection due to Flu A cannot be ruled out. Flu A angiten in the sample may be below the detection limit of the test. Performed By: #### L IPID, CMP, T7, TSH #### [facility] [address] [place] [address] Dr. Nga [facility]ibe[facility] Normal [facility] Comment on above: Result Comment: Nega tive for Flu B protein antigen. Infection due to Flu B cannot be ruled out. Flu B antigen in the sample may be below the detection limit of the test. Performed By: #### L IPID, CMP, T7, TSH #### [facility] [address] [place] [address] Dr. Nga Ribeiro INFLUENZA A AG Negative Normal NEGATIVE SEE COMMENT [facility] Comment on above: Performed By: #### L IPID, CMP, T7, TSH #### [facility] [address], [place] [address] Dr. Nga Ribeiro INFLUENZA B AG Negative Normal NEGATIVE SEE COMMENT [facility] Comment on above: Performed By: #### L IPID, CMP, T7, TSH #### [facility] [address], [place] [address] Dr. Nga Ribeiro INTERNAL CONTROLS Within Normal Limits Normal Wi thin Normal Limits [facility] Comment on above: Performed By: #### L IPID, CMP, T7, TSH #### [facility] [address], [place] [address] Dr. Nga Ribeiro MRI Shoulder w/o Lefton [...] by Maulik Stewart on 10/02/2022 1335 Normal [facility] Drying Oven Tender MG MAMM SCREEN 3D ZARI CADon 06-16-2022 MG MAMM SCREEN 3D ZARI CAD Patient: CONY MATOS Exam Date: 06/16/2022 : 1960 Gender:F Ordering : DR ANDREW ORTEGA . Admission #: [id number] Family : Order #: [id number] CLICK HERE TO VIEW EXAM RADIOLOGY REPORT [...] No Treatments Excision Family Cancers None LOCATION: [facility] BREAST COMPOSITION: Scattered areas fibroglandular density. FINDINGS: [...] Nixon M.D. on 06/16/2022 at 13:28 Normal [facility] PAP ACOG PANEL 2: 30 to 65on 05-30-2022 . . Normal [facility] Comment on above: Result Comment: Perf ormed at: WB Performed By: #### L IPID, CMP, T7, TSH #### [facility] [address] [address] [address] Nga Ribeiro Age Gdln ACOG Testing 30-65 Normal [facility] Comment on above: Performed By: #### L IPID, CMP, T7, TSH #### [facility] [address] [address] [address] Nga Ribeiro DIAGNOSIS: Comment Normal [facility] Comment on above: Result Comment: UNSA TISFACTORY FOR EVALUATION. Performed at: WB Performed By: #### L IPID, CMP, T7, TSH #### [facility] [address] [address] [address] Nga Ribeiro HPV Aptima Negative Normal Negative [facility] Comment on above: Result Comment: This nucleic acid amplification test detects fourteen high-risk HPV types (16,18,31,33,35,39,45,51,52,56,58,59,66,68) without differentiation. Performed at: =G Performed By: #### L IPID, CMP, T7, TSH #### [facility] [address] [address] [address] Nga Ribeiro Methodology: Comment Normal [facility] Comment on above: Result Comment: This liquid based ThinPrep(R) pap test was screened with the use of an image guided system. Performed at: WB Performed By: #### L IPID, CMP, T7, TSH #### [facility] [address] [address] [address] Nga Ribeiro Note: Comment Normal [facility] Comment on above: Result Comment: The Pap [...] #### L IPID, CMP, T7, TSH #### [facility] [address] [address] [address] Nga Ribeiro Performed by: Comment Normal [facility] Comment on above: Result Comment: Kolton Carpio, Toggler (ASCP) Performed at: WB Performed By: #### L IPID, CMP, T7, TSH #### [facility] [address] [address] [address] Nga Ribeiro QC reviewed by: Comment Normal [facility] Comment on above: Result Comment: Adore Sloan, Supervisory Toggler (ASCP) Performed at: WB Performed By: #### L IPID, CMP, T7, TSH #### [facility] [address] [address] [address] Nga Ribeiro Recommendation: Comment Normal [facility] Comment on above: Result Comment: Sugg est follow up as clinically appropriate. Performed at: WB Performed By: #### L IPID, CMP, T7, TSH #### [facility] [address] [address] [address] Nga Ribeiro Specimen adequacy: Comment Normal [facility] Comment on above: Result Comment: Spec imen processed and examined but unsatisfactory for evaluation of epithelial abnormality because of insufficient cellularity. Performed at: WB Performed By: #### L IPID, CMP, T7, TSH #### [facility] [address] [place] [address] Dr. Nga Ribeiro Coding Summary.on 12-30-2021 Coding Summary. CD:[id number] Gh 0bWw+PGhlYWQ+AL2ZMVHuD 47toJTldI5OL0hWZH0GHNX AXPDDUE1VDN8ltHO0WFbxM 2VybiAv FffiaFAsZP34UUu8NGP7sS pzBUyroU7auRHlL1b0KcAv OW68aP02GGscFNOoRtD7Tx ZpbjsgbWFy V8ejIyJfmSEtNjj+PHRhYm xlIHdpZHRoPScxMDAlJyBz aZjdRR0aTx2cILYnEUVcmZ xhcHNlOiBj b3mhCXZpWJnnXU4arZdiE2 FqeFQ0VCGye1h3Ev46xHJ+ KFBpQZM0pGehNHuvf792Ww Nnv9kqLPI1 iMSzLKkhLGW0L34bk6F5OV TuPVTqWYU4oEF4jX7ubTng tkctE6TcqRYfOrJ2NQC8aE ByuO9bdSlz rawwvY1aTob+E26RWX5WRC HPJB0LTzx4A4DpCdmlsUU+ TE16TGKyJK28pUFatJAch8 vzdSj4FoWc FNHxGZT3nYmsDZxvb5HdJR TuS43txMIez8J8ICFyiZyc eWLeKjOhcWQ9aF6gINjusn pyj0zaqwvy Zreui7agwt72fB31K17zEQ ntYSEvPKP7VLWvNWZbkZqj br7evT4lRw2+TMsxl6nwm0 gysNp8ZoGc ARRyuaIgzOevFKP3h3OuPc 38X2DkaUstf1IsRdj4jx46 qWEvx4J4aPS5IMbhRAQceO 8zPPbbOuV5 KMOoRsQkmR53bGWcWPejMs 5bsNvpjNucNB3nJLAezvkk UHVimV3gTQZzgQUubCvhRT 4wNTBpbjtm t526HyEjTIW3YSYacBKcY4 DgeA5fYdRpXQCsHZZbG8Kl rQXnYQonE627XVrpJlJ9YY QyptTaM2Fk CZGzpRtwIeP4p8T6Xq7Gx0 JbajbwENE8FEbrYPItPvSx BgNfMpK7K4PhYls6JGLdgF luKJ1jG0Us SCEvvewsdhcxnTZ2DFVuGK DnaU78iFMoNFpcZh2hy5I5 o547YCVoPBEhtG50Wi1sdI ogMTBwdCBU xT7yjjtfl6vnkvdrGqRyMI CqZXv1LIp1SJQuaGzyVeLo GQO4BnE9VEU7aZCvrQ4pbM pwwlwmsD6h Oyc+J97hgS4fXGZ6EFC6km xmTLCwttUdBW13HL44U6Rv PjwvdGFibGU+PGRpdiBzdH qkVV2jToYp j8xrl4EeBLtwA0UcDIOdJE ntHgc0RERmUQZ0bQN0yP3s VHVrXJlly0Z9zVQ1H2Ccgk Bbfq7wc0mz QYCmBPxlB76gqCJmg6Y9LM GkuYJ8DHExpFhnPxWnyS08 Oyc+DQKmqRhjo7BhLartg2 mwb1nulCo8 BkSkBGBxwoBewIxvHOS7z1 FxOo56P42pPYpmZEPqNFBz HQHmKDFnhBxnux1njR5vZq 8+PGNvbCB3 kGL0dV9fIAFpWtD2CKjxA0 90VxRgeQZrIaqyq2dfl9wc aHv5PcQjYHQdjvYcqUlrGO W4b8AbDm88 L43iIHtzEYDcSUBzGTYoWG FenOrzjm9wcB6pHp4+PC9j r8tmlj44hI41qVH+PHRkIH M7mChjRPbc DNCvhF0xAAqyIvO7YFMeNu FktE38iULwJVtvZs5ksSsu aQjuLF7cLZDnnlqwo821Rt Hpa6qiRKNz sCDsXLypLRT3L15kv9J2XX XpWLTqXLU2rZB7iI4puYec bjogbGVmdDsgdmVydGljYW pqTIaoH447 IHRvcDsnPlBhdGllbnQgTm LxYUd5F7DxVgq7QUNyfUmc JC7auVNcOWbjEh9joUjxcW pnMH1yZVLd gjdoj953ZoBfg8uuHNGlsE OuTRvyABA5F88om4G9XTVo IDCiZLF1jOB9sB2oyJfywq ogbGVmdDsg qqLreKabKDfmCMwxS654BU RvcDsnPkJpcnRoIERhdGU6 HC30PY48qVUoj2L1iJF1P1 BhZGRpbmct oprutPF0GJIaZWNblI95Yz 3uaXllGs8bIIHxUIA3EABm kKRyY0VijG1vEuBeQOBqQB JrM5KmhIYu HWheV583EXtjBdJ6UIZnkk KqA6MvGYNrgNeqYsP2r9T3 Ln8RS1E3EK52WA40tQBqc5 F6mDT7J8Bp DAFmrsrrxdvnnLO5BPTeZZ SpoB14Dz9lbTyhKq5rEZKx HCM2EPXfaWUpN9NpsJ5mXg AjMDAwMDAw V9UuqBGbBMjfZ852VLrcQq U8MTIcynCdX6IpHZNbxNvc XxT4z7I1Pq3TVNi7RU67DD 36jYXvz3O8 qXJ3G0YxDKKibwsjshhuvX J4LHOjTOUabP42Pg5ynTzt Vo5eKDVsUID1BSLdcAYvA0 OeqL7uIiXa RCXkAYRmT3WknZBxJLhyR2 80KAguWeA4KVPyxyIhI7Cd XCBqnKkyAlZ7p2P2Pw8NKB EnIU48KQU0 tXU9LK45ON13Z2BqOeqsaV FibGU+PHRhYmxlIHdpZHRo LVreVFKoGtCtiFccCP9aOi 9yZGVyLWNv eMpjpADeXeKwe5vuSRWrXA soAX3ddObaR8AyrJM6UEAj z4b7Rr84J38lC6TewUQ+PG MlzHV3pSG8 xI8sNqZlXxR4IQjxS157Su BoeEZaOidtx6rne1wldCx2 OgQ0KIPvlyZxrVpdHQN8f8 WoVt06I20i IHdpZHRoPSIxNSUiIHZhbG gfjg3vvK3vKy4+PGNvbCB3 oVS9aS0kGvMdIfG7QVnvZ2 49InRvcCIv Pgqyd9ygt3rnpMc4ByMmKM YpllGocNfxIDA0i0JeYc67 D0LyzXsba1MzVkx7td01fE Uxl4D2pXV2 Q4RaICNcpxgwnNWomPctXT 1cZNBawibtYDTyiI9oPBKx O5z3AlZgUxY4YFqlA0Zdwb S3QUJvgDPw SXlqZDE8R44zh0X7JVGsIL YtHJF7oIE2xO7taQrwzcoj bGVmdDsgdmVydGljYWwtYW iuB422NUCe yTdiRPPzjO4cNCWslNPuqD bhEF4jTCTkldpbFy7HIWGG UiwgQkVUVFkgTDwvdGQ+PH IkDQF7lTvd SCpvLRTghS4eCWDcN2j9Zk SmFsL9ZQvpL4BhAUVsknsr Uv84kQ9oFsHbOzS4QTwbX6 IwdcH0CFAx vQAuMHftWZL8J55vu3A2ID ZyTETiZSS1pEH1zM5yoCnl bjogbGVmdDsgdmVydGljYW woOTmnZ987 YZAfoBcxVuMzJpT7QhR2Eu J4C7UfKjj0HVNwhTvpGS9t lFUnIKqdJv8deDzdzJqcQU 4wNTBpbjtw LZTokL3uRKCdzXBxpWhiQD 6bPCSwwtudm529TlVyABK3 IXHnvRZdW0AwmD6eMgMxJD IdISImD9Xu xYFtTYelP281SFkqCaW9IS KeyvWpZ5PcWMYcsRugVtT3 q3H3Dq13OLYUNULjugnvtA Q+PHRkIHN0 iHjcHDrwFLWmcV3zXRUcY7 c5IaZwBzK0DDwlB2DfLVWr qgycLm38sJ4eIzPwBlP0RN mwU5PqubP4 GYHlkSAbOPwpYHA6I74kn3 K9DWSgCCCiYRV9vHR6bS0s bGlnbjogbGVmdDsgdmVydG ljYWwtYWxp O218EWZygGseHhAekYOcLI wvdGQ+BCQwXKH4yDebFWyt YTHumR4nTYHoJ5c8IpPiSg R8BRmtR0Uf XOMpvxgeLt29lG2rEmPrRp I3XWuiX3TrgmR6MYXeySLs SBkbTKB2A68rj6G6HSIvOP IvHHY4dKF8 kE1bxJfludhagAPxnMcvmj PstJndTCkyOKqkI187ZHWu yThlXt21xDKpuNuvuzY3K8 RkPjwvdHI+ LC83NRKbWD33yZZsaMIlf9 rsrEq6MzAjVZYoETW2oMgt OPumc1GkRCXeC40gvPRqe9 A9MMYmcUhi nFLdViZzfSH3lA7jJJbrhn vxm3mtmjksQqoli4ilxy54 vE53H24dCOscIXFpEHXhON UiIHZhbGln ym6bvG8mVq7+VNZboHE6cJ J1eH6sAnJdLqF2GQqmQ966 KdBxuDAuGjsqs7guz8kjpM s0EvCuDSBw zkRdgKzyBPM5v2DsTa90X1 9sIHdpZHRoPSIyMCUiIHZh hEscxp9lcP7pYl3+PC9jb2 yjjl24wG87 dHI+DOVgRFN3xAgxGOshQY UkvB5uIBeqHtV7OFUxClRh gQ86vXCoKYuyXl8lwAfhnF saQH6fTNYt lfoxa672PaWep8tyRWMtcW IwYAuaWYJ5L57zi5J4ERGe OWOdOTR4nKQ9bI8erFdfub ogbGVmdDsg coBveYehBQscIFbhD586MG KsjZhwRkEskEZdX0gzmcKL AY6nBlzjsNY+VQAcFOH7sW xlPSdwYWRk hA3hJCMbU6i2MaHyMbG5RK mmE2XlegK4BDCbsAYyJUVf sNNOkK8hsanir6nlmkgaVq AwMDAwMDt0 DPj7JWUhnJjuQsAoVQL0Vb X5BMD2lEYcxP8euMvhnvsj zA6xFej+RklOOjwvdGQ+PH LjMPM2lMhn QZmqENBbvC2fYJZaW9k7Os ItRlM9RNgzE1UznfN3IFGz qDPlHDYjlXMTjO6mqmmja8 xvcjogIzAw QCVfBHx6XDf2ELMsiQzkMq JfCSJ1LnM5GWX5xFWuhY0s wCxrdfakaV9kQtv+TVJOOj wvdGQ+PHRk ONK9lFigDIjkWTLusT4rGT DnF2a0GzZpRhV8ECcxC0Ic etW2WMPvuXVcCTOjiLTElT 7fpyjcr2vy etcgJrYoUOXwMSl6JFb4YW DyxYkwIqSiUZV5AcJ1LOK8 zHUcuH7lqJjknvvukI5vTj c+DRR8RYS1 VR56ND79O8LcKwuxoDHlnK U+PHRhYmxlIHdpZHRoPScx ZSNsGdWpsVbjIP6bOo2oOQ VyLWNvbGxh cHNl (more content not included)... [facility] Coding Summary.on 12-27-2021 Coding Summary. CD:[id number] Gh 0bWw+PGhlYWQ+CN8DFSKzJ 22kyJBigG7MN9vCYX0NZUH AMJOQEH3KXK8dwYD7TSqkY 2VybiAv OdfmhEGkRZ55QQv1TAI8iX gpJJuusH7xeOSvP7e0PrAn JI51kP10OQdkANDfMxK9Qg ZpbjsgbWFy H7tiUmMteXXcUaz+PHRhYm xlIHdpZHRoPScxMDAlJyBz xWenKR4bIo4jPIApYOEncH xhcHNlOiBj n8yyAELoAAfkUM8lsRigY8 OgpEN9UXWct7p0Hz25qMI+ OOZgUCU8dOkuELjpb843Py Mbu8jaRFS9 wGGlSMumFYV6C82ps5V3IG DhZQBgLKV7qUQ8iH9jvZwz ggerO4CejLJqFaO3GYK3aZ NpzU3sfGwq cjwcvB7yGmi+G83IMN9BUB XUYF5CHku8H9FiSoufjYD+ ZL56LYCrFH46wXRxoAWdg3 rcuOu6WfPc KMHhANH8rMetAGeho8HjFY FnV17uxMAmc3U9QPJmhIvj sOTdDfNurOK3cH7fQCyqwc ftq6yojlbq Xupxd2tovp62aH65I12pGS efELYhCWL7LBWnOTErlFsm mg0hgA1aHp8+SDugp1apg7 ksjDv5AcYx UWJdseZfpMokAJK1i8IiLy 49Q8JptFoae1GdHcy0bq33 kMXsw5I8aZG3MSskPNVveJ 6yHKczPyN3 DXRlEcRjnC12iMDqGXalYc 4stExxuZawXU6mIPHjpkjg CAZfcE9fWDVvgREufRbyMM 4wNTBpbjtm a604NhJyZMO9XYElyFNaM1 QrsD1eBuJoTPTpNEJdN1Tw fRWaGXznL530WRmtSbG0FE ToswCgD5Fa IMMsbXmxMfU7d8S3En4Gs0 UeidquTDL8BJzdWPZsXjF7 LbYlPeV6X6FuWfz2MYJmtQ uxHS1gB1Cp AOKasgnrwnzypUA8TISuIB NejH62pSMmUUgzMy2nm2Q7 o095SNDyLZGkvQ63Op8uqX ogMTBwdCBU bI0zmffpf1ktjrnpHnVlFJ XyMQw6VQl2KMHleViiSgLf OVA3XvW1NGN6sKBnaC0hjI rtcleoiF7p Oyc+W61wuW8vHXS5NMC9pn tiEBWjjjRdZP38NY12N1Rf PjwvdGFibGU+PGRpdiBzdH nyXG8sEzTj q1slq1ThBJcdQ3KuGZHcBO hxLyu9RBTpFVE5xON2uG5e NTNdNCdlw2P2tDF1K9Ubkq Akub9vq4ri NYTzBSsbS24wlLAtn9B6NI NxrTU9CLEdnUqqViHhrH05 Oyc+GUHxiTnbu8AnWmuhw5 bqt9qmqYr2 QuKpLOMozoWhzTimBNZ7c1 BsQt14M48eASrzDYJkLNMz JWBhCYAbrRyzce1flA0nZu 8+PGNvbCB3 fXE9jP2wFBXiDjC3EUhmM9 35WsUjgCDjVdybo5zha6fi nCx4TmJhRWQdgwIddNmfVL S5a2IsVm08 O08tBUhzOJGzVQZmTZIrQR GysHfsgq5lvS3aMh5+PC9j u7jsyt37nF56pWX+PHRkIH F5jKysYUql MRKyxN9pIXksWaN4QJSaNz ZkoR15cAQmQYqrDh4thAda vHxtTV1yWPGlqbvnz901Vp Bnf3gpRXLr jGJbUXvtSEH1X08cw1D3XT KePMEsSHW4sIV5nF2uoGqo bjogbGVmdDsgdmVydGljYW qoQMtyP413 IHRvcDsnPlBhdGllbnQgTm VnPPf2G6ItXoy4WNRqeOac ZM2nzKRkCUouJp5jcSqguR yrAS2lWXAa xpskx189EhOkt7gzOVIbyI MrEVflVUU4G92mb3P5ETJq KVEoFFR6oOF0kF0owVawwd ogbGVmdDsg ijLoxLhhANtcFEiaE587OM RvcDsnPkJpcnRoIERhdGU6 JR69IS79jEGqj4P1kFH4Y7 BhZGRpbmct tcpqoPT9UDKaCRHewI99Qx 1xgZmfXx3nMDJkEYN6FUHn uQWvN0PudJ6lSuKmGMJfIJ VgM5JkkKNw HRjaC422SDmdUuP7TCCpvy IgZ4ClOLDtpNznJuJ7i2T5 Ak5GM6Z6ZV83SO95fXBdo6 W1cTY9O7Xp YHKjtitudjpchFJ7WRDvFA SybO30Ay2pyCanKf9jDOXr YJE2JCEdwROlU6KmfC5cWv AjMDAwMDAw F5TjoTVuHUxcR971JWcvDh Y4OCUuzxQzP7QaRIGliEhq HiH5h3J1Aw8HEHy6JF28UP 35bUOoy6F3 tBL6T3RvXQIudgvmydykkJ R8YMLmUJSgcE52Uv8rwZid Pk2oIVBpQBG1JIIscOPnW5 ZrxM9oHzWk MYAwQFSvH4AtxHAzWOzsC2 82FPcjJsF4OTFmhsNtJ1Yz MVOkxOxtQwO6g9J5Bo9HOX WuKT52FGF2 mTI5NM34EL13N3MrUgaedG FibGU+PHRhYmxlIHdpZHRo ONjxJUDuIcWxyEyvGV8mEl 9yZGVyLWNv oEzqhAXsBjBuq8ohEZDnUT idUZ5uzOnsH8VnbMN1GWNn n2z4Rm86O50fA6EolPJ+PG TgaVD8zBZ1 dE9pDlHlSrI0ZRjzE333Eb HofRMyZqlcz7nis8walVe9 ZjH5ESPgcsProHhdEPJ0u1 IkTc34T93i IHdpZHRoPSIxNSUiIHZhbG nduf0muQ3uFc7+PGNvbCB3 sFF9cX0wSnPqJvQ7IShcJ0 49InRvcCIv Lwtlw6sjx0azkFv2RiUnLU NbbaNwhZslZMB8b6GuHe22 O4LizRdju1LwAot3us33tW Ntw7O1rPG5 E4ExOZYtwldmkZBjgZuyKH 1xFQQlodboVRXmqZ7xUULq Z5w8DmOgZxC4WIecK4Fvig H8QIVusUWy OEzkSUY5C53zu9C9OLYrYS BhKAV5vDV9oK5ayWtvxvtt bGVmdDsgdmVydGljYWwtYW caA903VWGr gLjkROKmmS8kDDLhaOXrxI roVV5zFLYnrsrlGb9ERVZY UiwgQkVUVFkgTDwvdGQ+PH FtSJB8jRvf HJxgZZAesZ7qDHHlH6w7Vq RlApI1HFkjK5KsGLGxesbh Ss37rS7sSwQfBkO5UHrhH9 HxaaB9DYUh xGUiNTtoHVI0H76kj8Q5AP ShKFLzOVB6dUJ4gV1dzKjl bjogbGVmdDsgdmVydGljYW iaZVotU449 SIHncKwoBzTjUwJ7VoJ5Yg Y7W7QoNfb6DUXfpUsbCY1r bVLuDLeuOa4coSqmpZfaWZ 4wNTBpbjtw TSEgsL3xHWRejOCiuAazEF 2lZQUfdutmf218YqDoESM4 MRDswZNxP8PypK3oLlRlJV MaMQIxV3Ic lWKyVZqeI883KRvyZhH4HO ZjxhFqZ6NjPJMhhTpbAnX0 z0N4Qc32ALFYQMIuanjxkV Q+PHRkIHN0 wEpsESmqNNTlpN5sRGHeM8 f5JjVyQzU1NCxxA2UxEDVv xslyFo46pW9oJbFqKkZ3UK gwB6ZvkkS0 GBXdpCRpOOzsJCD2W32bp9 H6TCYsVFYlBWT7wSI0wI2g bGlnbjogbGVmdDsgdmVydG ljYWwtYWxp Y610ZHFlmJqlZeAcaYWbLM wvdGQ+ZIMhXCP4vSmfOEoz JMAjcC0iWHMoK3e0JxCkYv T9PYejJ4Wv KOBtiuztRt94jI3uGgBaLa U5HFwvF5PcerK3PAGdoYLl BFscSXR7N89pz0D9ZDEhHA KwSKJ1eDO1 lH5exQjcwabxkLRdlSdwfb DdfBasXZpaTBkgZ707TWGe bBhbAt66mNPjkSbcklI8Z5 RkPjwvdHI+ UG79VZLcTX36bMYklOAtt2 pldLw8LqErERXjBWA0cHfr AQzfm0AbFHXpD97hxKEel5 Q3TRXpmBnm uKHiZjMnkJZ0oJ1jANtssq xfo8ptbgsxFbwmq3acyo22 bF13W76oSKwlBTFnONGtGZ UiIHZhbGln zn9waU9nBs0+EBNbuXF1mS J3tZ3xQrFlXyD1KFnjL195 AmRuzSInBdldb9vam9fovM c4ClCeUTTh yzAvlCqfXBE1c7MgZx47D6 9sIHdpZHRoPSIyMCUiIHZh bOtoiz3pcD2iPu0+PC9jb2 nfeu98zZ97 dHI+XACqNMD2tPiqEZmnGF HuaQ6xGDcwOmV9NNEnHlXf dH04rNVkXXzaQy3riFitqS qfAE0rNVTq pgktq154WeHew2vrZPPhoX OcBGkoJIH6A99kt4H8MYOs YXMsNEU7pDA4kZ3kvUphzn ogbGVmdDsg mgSyaCktBIynAAzkZ501RA BqqUnaDaOcsEGaG6guodFG CW9oBrvykKV+SPHbBTM6lB xlPSdwYWRk pT0bRQDpN2z4WnNbHrU6ND xdB4AdoeL8GXWxdJTiIDWz sUSLjV8notxis5kpnmbkTw AwMDAwMDt0 BLj0RYGuiAgwIgAqURL0Gx R5QLM5tCBfpN2ryIkttzhq kF7rXzx+RklOOjwvdGQ+PH OkNWN1zSra BHebAXTdzM4vMIUiM9t6Pb HgBcE3MXypF5MzttS1SXEb gQAcFPFlgLRNbC3elufdy7 xvcjogIzAw IPKwMUr7UUa9JVDhtGgbUt MuFHD2LuR8EUG6hLImvN5y hQafkxlxyC0uHtv+TVJOOj wvdGQ+PHRk JJC2yKvjYYvcXJZpuC8zPX ChD1u0PoCmTzX5WZlqD3Cn fkX3QTIrnNKhZAMeuTAPuH 9jfnkxc0ib vnceKfQpSUEzHFz7ICe5FF QyqDwoOcChGXV7IpR3GUP9 lYCsfH8qfDoqmyvxcI6zVd c+NSY8XYJ8 TT97BJ82P6MzXrvxwLFmeU U+PHRhYmxlIHdpZHRoPScx MDFmIlFjxPedMG7mVx7pFT VyLWNvbGxh cHNl (more content not included)... Normal [facility] Consent for Treatmenton 12-01 Consent for Treatment [id number]#1.0 0CD:127 Normal [facility] BMPon 12-19-2021 Anion gap [Moles/Vol] 14 mmol/L Normal -16 [facility] Comment on above: Performed By: #### 1 [id number], [id number] #### [facility] [address] [place] [address] Calcium [Mass/Vol] 9.6 mg/dL Normal 8.9-11.1 [facility] Comment on above: Performed By: #### 1 [id number], [id number], [id number] #### [facility] [address] [place] [address] Chloride [Moles/Vol] 105 mmol/L Normal 101-111 [facility] Comment on above: Performed By: #### 1 [id number], [id number], [id number] #### [facility] [address] [place] [address] CO2 [Moles/Vol] 27 mmol/L Normal 21-31 [facility] Comment on above: Performed By: #### 1 [id number], [id number], [id number] #### [facility] [address] [place] [address] Creatinine [Mass/Vol] 0.9 mg/dL Normal 0.5-1.3 [facility] Comment on above: Performed By: #### 1 [id number], [id number], [id number] #### [facility] [address] [place] [address] Glucose [Mass/Vol] 95 mg/dL Normal 55-199 [facility] Comment on above: Result Comment: If t his glucose result represents a fasting glucose, interpretation should refer to the following reference range: 55-99 mg/dL Performed By: #### 1 [id number], [id number], [id number] #### [facility] [address] [place] [address] Potassium [Moles/Vol] 4.3 mmol/L Normal 3.5-5.3 [facility] Comment on above: Performed By: #### 1 [id number], 3163975, [id number] #### [facility] [address] [place] [address] Sodium [Moles/Vol] 142 mmol/L Normal 135-145 [facility] Comment on above: Performed By: #### 1 [id number], [id number], [id number] #### [facility] [address] [place] [address] Urea nitrogen [Mass/Vol] 23 mg/dL High 5-21 [facility] Comment on above: Performed By: #### 1 [id number], [id number], [id number] #### [facility] [address] [place] [address] Urea nitrogen/Creatinine [Mass ratio] 26 No Units High 10-20 [facility] Comment on above: Performed By: #### 1 [id number], [id number], [id number] #### [facility] [address] [place] [address] CBC w/Indiceson 12-19-2021 Erythrocyte distribution width (RBC) [Ratio] 13.3 % Normal 10.9-14.2 [facility] Comment on above: Performed By: #### 1 [id number], [id number], [id number] #### [facility] [address] [place] [address] Hematocrit (Bld) [Volume fraction] 38.6 % Normal 34.0-46.0 [facility] Comment on above: Performed By: #### 1 [id number], [id number], [id number] #### [facility] [address] [place] [address] Hemoglobin (Bld) [Mass/Vol] 13.6 g/dL Normal 12.0-16.0 [facility] Comment on above: Performed By: #### 1 [id number], [id number], [id number] #### [facility] [address] [place] [address] 93641 MCH (RBC) [Entitic mass] 31.1 pg Normal 27.0-34.0 [facility] Comment on above: Performed By: #### 1 [id number], [id number], [id number] #### [facility] [address] [place] [address] 83494 MCHC (RBC) [Mass/Vol] 35.2 g/dL Normal 31.4-36.0 [facility] Comment on above: Performed By: #### 1 [id number], [id number], [id number] #### [facility] [address] [place] [address] MCV (RBC) [Entitic vol] 88.2 fL Normal 80.0-100.0 [facility] Comment on above: Performed By: #### 1 [id number], [id number], [id number] #### [facility] [address] [place] [address] 64555 Platelet mean volume (Bld) [Entitic vol] 8.2 fL Normal 6.4-10.8 [facility] Comment on above: Performed By: #### 1 [id number], [id number], [id number] #### [facility] [address] [place] [address] Platelets (Bld) [#/Vol] 231.0 E9/L Normal 150.0-500.0 [facility] Comment on above: Performed By: #### 1 [id number], [id number], [id number] #### [facility] [address] [place] [address] RBC (Bld) [#/Vol] 4.4 E12/L Normal 4.3-5.9 [facility] Comment on above: Performed By: #### 1 [id number], 9987563, [id number] #### [facility] [address] [place] [address] 93500 WBC corrected for nucl RBC Auto (Bld) [#/Vol] 4.5 E9/L Normal 4.0-11.0 [facility] Comment on above: Performed By: #### 1 [id number], 9642430, [id number] #### [facility] [address] [place] [address] Consent for Treatmenton 12-01 Consent for Treatment [id number]#1.0 0CD:127 Normal [facility] Physician Orderon 12-19-2021 Physician Order [id number]#1. 00CD:127 Normal [facility] XR Chest 2 Viewson XR Chest [...] MD, V. Transcribed by: DELICIA Technologist: Normal [facility] eGFRon 12-19-2021 GFR/1.73 sq M.predicted among blacks MDRD (S/P/Bld) [Vol rate/Area] mL/min/{1.73_m2} Normal >=59 [facility] Comment on above: Order Comment: Order added by Discern Expert. Result Comment: eGFR is race adjusted. AA=. Performed By: #### 1 [id number], [id number], [id number] #### [facility] [address] [place] [address] GFR/1.73 sq M.predicted among non-blacks MDRD (S/P/Bld) [Vol rate/Area] mL/min/{1.73_m2} Normal >=59 [facility] Comment on above: Order Comment: Order added by Discern Expert. Result Comment: Manager [employer]ations kary kidney disease could be indicated at eGFR's of less than 60 mL/min/1.73m2. Kidney failure is indicated at less than 15 mL/min/1.73m2. Performed By: #### 1 [id number], [id number], [id number] #### [facility] [address] [place] [address] Physician Orderon 12-06-2021 Physician Order [id number]#1. 00CD:127 Normal [facility] RAD - MISCon 11-04-2021 RAD - MISC [id number]#1. 00CD:127 Normal [facility] MR knee RT wo conon 08-30-20 21 MR knee RT [place] [facility] [place] [address] MRI Report Signed Patient: Cony Matos MR#: [id number] [birth year] : 1960 Acct:[id number] Age/Sex: 60 / F ADM Date: 08/30/21 Loc: [facility] Room: Type: [facility] CLI Attending Dr: Jose A Petersen MD [...] Jamarcus Prado M.D.08/30/2021 11:36 AM Dictation Location: [facility]12 Transcribed By: BIJAN 08/30/21 1136 Dictated By: Jamarcus Prado II, MD 08/30/21 1120 Signed By: 08/30/21 1136 [facility] XR knee RT 2Von 08-22-2021 XR knee RT 2V [facility] [place] [address] [place] [address] XRay Report Signed Patient: Cony Matos MR#: [id number] [birth year] : 1960 Acct:[id number] Age/Sex: 60 / F ADM Date: 08/22/21 Loc: [facility] Room: Type: [facility] Attending Dr: Jose A Petersen MD Ordering [...] Jamarcus Prado M.D.08/22/2021 1:26 PM Dictation Location: [place] [address] Transcribed By: BIJAN 08/22/21 1326 Dictated By: Jamarcus Prado II, MD 08/22/21 1325 Signed By: 08/22/21 1326 [facility] Cardiovascular Lab Reporton 05-17-2019 Cardiovascular Lab Report [facility] Patient Name: Stephen [facility] Ceasar MR #: [id number] Department of Physician: Rico James M.D. Division of Service Date: 05/17/2019 Cardiology Birthdate: 1960 Adult Cardiovascular Room #: [address] [place] [address] Cardiovascular Laboratory Report INDICATION: The patient is [...] signed informed consent. She was brought to cardiac catheterization technician in a fasting state. The right neck area was prepped and draped in usual fashion. Using ultrasound guidance and micropuncture technique, the right internal jugular vein was accessed. A 6-New Zealander x 11 cm sheath was placed. A 6-[place] Irvin catheter was used for right heart catheterization with measurement of pressures and calculation of cardiac output using the estimated Sherman method. Irvin catheter was removed. Jamar's test was favorable on the right. Access in the right radial artery was obtained using micropuncture technique, a 5-[place] Zealander 11 cm Hydrophilic sheath was advanced. Verapamil was given through the sheath and heparin was administered intravenously. Bilateral selective coronary angiography was then performed using a 6-[place] JL5 diagnostic catheter. This catheter was removed. [...] James M.D. Date Trans: 05/17/2019 01:54 P/timoteo [id number] cc: Paddy Stone M.D. [address] [address] [facility] Vital Signs Date Time Vital Sign Value Performing Clinician Veneciai jerson 08-22-2021 10:00-0400 Body height 167.64 cm Jose A Petersen Other [employer] Other 08-22-2021 10:00-0400 Body mass index (BMI) [Ratio] 25.01 kg/m2 Jose A Petersen Other [employer] Other 08-22-2021 10:00-0400 Body weight 70.31 kg Jose A Petersen Other [employer] Other Encounters Encounter Date Encounter Type Care Provider Facility Start: 04-02-2023 End: 04-03-[address] PADDY STONE . Facility:[facility] Start: 11-08-2022 Encounter for genera l adult medical examination without abnormal findings DR PADDY STONE . [facility] Start: 11-03-2022 End: 11-03-[address] PADDY [...] End: 10-03-2021 ambulatory Jose A Petersen Other [employer] Other Start: 10-03-2021 Telephone encounter Jose A Petersen [facility] Start: 08-22-2021 Office outpatient ne w 45 minutes Jose A Petersen [facility] Start: 05-17-2019 End: 05-18-2019 Patient encounter procedure PROVIDER UNKNOWN Facility:[facility] Payers Date Payer Category Payer Unknown [id number] 2.16.8 [id number] 1960 Unknown [id number] 2.16.84 [id number] 1960 Unknown [id number] 2.16.84 [id number] 1960 Unknown [id number] 2.16.84 [id number] 1960 Unknown [id number] 2.16.84 [id number] 1960 Unknown [id number] 2.16.84 [id number] 1960 Unknown [id number] 2.16.84 [id number] 1960 Unknown [id number] 2.16.84 [id number] 1960 Unknown [id number] 2.16.84 [id number] 1958 Self-pay 1958 Unknown [id number] Social History Date Type Detail Facility Sex Assigned At [employer] Other Evaluation note 08-22-2021 Note Date & [...] of pain and plan potential surgical treatment. [employer] Other Evaluation note Note Date & Type Note Facility Evaluation note No Information [facility] Other History general Narrative - Reported Note Date & Type Note Facility History general Narrative - Reported Type Surgical History C section x3 Surgical History hysterectomy Surgical History gall bladder Hospitalization History see above [employer] Other Summary Purpose Family History No Family [...] and content) DATE CREATED AUTHOR 07/12/2019 [facility] DATE CREATED AUTHOR AUTHOR'S ORGANIZ ATION 01/16/2022 [facility] DATE CREATED AUTHOR AUTHOR'S ORGANIZ ATION 02/21/2022 [facility] DATE CREATED AUTHOR AUTHOR'S ORGANIZ ATION 10/03/2022 [facility] dical Specialist DATE CREATED AUTHOR AUTHOR'S [...] BE BASED ON THE PRIMARY CLINICAL RECORDS. [email or web address] provides no warranty or guarantee of the accuracy or completeness of information in this document.
--- NOTE | 2024-03-14 06:43 | XR_ITS ---
The [address] [address] Patient Name: JOCELYNE MATOS MRN: [id number] date: 1960 Sex: F Assigned Patient Location: [facility] Current Patient Location: [facility] Accession/Order Number: [id number] Exam Date: 03/14/2024 07:02 Report Date: 03/14/2024 07:27 At the request of: PADDY HER Procedure: XR chest 2V EXAMINATION: XR chest 2V HISTORY: Pneumonia J18.9 COMPARISON: No relevant comparison available. TECHNIQUE: 12/04/2023 FINDINGS: LUNGS: No significant pulmonary parenchymal abnormalities. VASCULATURE: No increased pulmonary vasculature. PLEURA: No pneumothorax, effusion, or pleural thickening. CARDIAC: No cardiomegaly or cardiac silhouette abnormality. MEDIASTINUM: No visible mass or adenopathy. BONES: No fracture or visible bone lesion. Moderate spondylosis OTHER: Negative. XR/XR chest 2V IMPRESSION: No acute cardiopulmonary process Electronically authenticated by: WALDO BUSTAMANTE Date: 03/14/2024 07:27
== END 2024-03-14 06:33 | disposition home or self-care (01) ==
LOC: RAD 06:33
PROVIDERS: PCP Family Medicine; Visit Provider Family Medicine
DX: J18.9 Pneumonia, unspecified organism (principal)
CPT/HCPCS: 71046

== ENCOUNTER 2024-04-20 07:51 | Outpatient (OUT) | payer OTHER, SELFPAY ==
--- OUTSIDE RECORDS SUMMARY | 2024-04-20 08:04 | XMS_ITS | CCD ---
Author Organization [facility] Care Team Providers Care Tour Actor Name Role Phone UNKNOWN, PROVIDER Admitting Unavailable UNKNOWN, PROVIDER Attending Unavailable PADDY STONE Referring Unavailable SHIRLEYY, PADDY Primary Care Unavailable Jose A Petersen Unavailable ARDEN ., DR THOMASON Primary Care Unavailable HOY ., DR THOMASON Consulting Unavailable HOY ., DR THOMASON Attending Unavailable HOY ., DR THOMASON Admitting Unavailable MCDONALD, DR WALDO Perkins Consulting Unavailable HOY ., [...] Unavailable SHANNON ., DR MORALES Attending Unavailable ZIDAMION, DR OWEN Penn Consulting Unavailable SHANNON ., DR MORALES Attending Unavailable HOY ., DR THOMASON Primary Care Unavailable SHANNON ., DR MORALES Admitting Unavailable SHANNON ., DR MORALES Consulting Unavailable HOY ., DR THOMASON Admitting Unavailable HOY ., DR THOMASON Primary Care Unavailable HOY ., DR THOMASON Attending Unavailable ADRIANA LITTLE Admitting Unavailable ADRIANA LITTLE Attending Unavailable SHIRLEYY ., DR THOMASON Primary Care Unavailable Allergies Allergy Classification Reported Allergen(s) Allergy Type Date of Onset Reaction(s) Facility (3 sources) Acetaminophen / oxyCODONE Drug Allergy 10-19-[address] [facility] Repository (1 source) Sulfamethoxazole / Trimethoprim Drug Allergy 05-17-[address] [facility] Repository (2 sources) Acetaminophen / oxyCODONE Drug Allergy Unknown [facility] Other (4 sources) Latex Propensity to adverse reactions Unknown [facility] [employer] Other (2 sources) Sulfacetamide / Sulfur Drug Allergy Unknown [facility] Other (2 sources) Sulfamethoxazole / Trimethoprim Drug Allergy Unknown [facility] [employer] Other (2 sources) Codeine Drug Allergy 10-12-20 14 [facility] Repository (2 sources) Latex Drug allergy (disorder) 10-25-20 14 [facility] Repository (1 source) Sulfamethoxazole / Trimethoprim Drug Allergy 01-08-20 17 [facility] Repository (1 source) Sulfonamides (Antibiotic) Drug allergy (disorder) 01-08-20 17 [facility] Rep[facility] Problems Active Problems Problem Classification [...] 04-02-2023 Creatinine [Mass/Vol] 0.80 mg/dL Normal 0.55-1.02 [facility] Comment on above: Performed By: #### L IPID, CMP, T7, TSH #### [facility] [address] [address] [address] Nga Ribeiro EGFR-AF BAHRAINI >60 Normal >=60 [facility] Comment on above: Performed By: #### L IPID, CMP, T7, TSH #### [facility] [address] [address] [address] Nga Ribeiro EGFR-NON AF BAHRAINI >60 Normal >=60 [facility] Comment on above: Performed By: #### L IPID, CMP, T7, TSH #### [facility] [address] [address] ABD/PELV W CONon [...] WALDO BUSTAMANTE Date: 2023-04-02 15:30 Normal [facility] OCC BLD IMMUNO SCREENon OCCULT BLOOD Negative Normal NEGATIVE [facility] Comment on above: Performed By: #### O BSCRN #### [facility] [address] [place] [address] Dr. Nga Ribeiro INSULINon 10-31-2022 Insulin 8.8 uIU/mL Normal 2.6-24.9 [facility] Comment on above: Performed By: #### L IPID, CMP, T7, TSH #### [facility] [address] [address] [address] Nga Ribeiro CBC AUTO DIFFon 10-30-2022 BASO # 0.1 103/ul Normal 0.0-0.1 [facility] Comment on above: Performed By: #### L IPID, CMP, T7, TSH #### [facility] [address] [address] [address] Nga Ribeiro Basophils/100 WBC (Bld) 1.4 % Normal 0.2-2.0 [facility] Comment on above: Performed By: #### L IPID, CMP, T7, TSH #### [facility] [address] [address] [address] Nga Ribeiro EO # 0.3 103/ul Normal 0.0-0.7 [facility] Comment on above: Performed By: #### L IPID, CMP, T7, TSH #### [facility] [address] [address] [address] Nga Ribeiro Eosinophils/100 WBC (Bld) 6.3 % Normal 0.9-7.0 [facility] Comment on above: Performed By: #### L IPID, CMP, T7, TSH #### [facility] [address] [place] [address] Dr. Nga Ribeiro Erythrocyte distribution width (RBC) [Ratio] 12.7 % Normal 11.0-15.0 [facility] Comment on above: Performed By: #### L IPID, CMP, T7, TSH #### [facility] [address] [place] [address] Dr. Nga Ribeiro Hematocrit (Bld) [Volume fraction] 40.4 % Normal 36.0-48.0 [facility] Comment on above: Performed By: #### L IPID, CMP, T7, TSH #### [facility] [address] [place] [address] Dr. Nga Ribeiro Hemoglobin (Bld) [Mass/Vol] 13.8 g/dL Normal 12.0-16.0 [facility] Comment on above: Performed By: #### L IPID, CMP, T7, TSH #### [facility] [address] [place] [address] Dr. Nga Ribeiro IG # 0.01 10e3/ul Normal 0.00-0.03 [facility] Comment on above: Performed By: #### L IPID, CMP, T7, TSH #### [facility] [address] [place] [address] Dr. Nga Ribeiro IG % 0.2 % Normal 0.0-0.5 [facility] Comment on above: Performed By: #### L IPID, CMP, T7, TSH #### [facility] [address] [place] [address] Dr. Nga Ribeiro LYMPH # 1.9 103/ul Normal 1.2-3.8 [facility] Comment on above: Performed By: #### L IPID, CMP, T7, TSH #### [facility] [address] [place] [address] Dr. Nga Ribeiro Lymphocytes/100 WBC (Bld) 46.4 % Normal 20.5-60.0 [facility] Comment on above: Performed By: #### L IPID, CMP, T7, TSH #### [facility] [address] [place] [address] Dr. Nga Ribeiro MANUAL DIFF REQ NO Normal [facility] Comment on above: Performed By: #### L IPID, CMP, T7, TSH #### [facility] [address] [place] [address] Dr. Nga Ribeiro MCH (RBC) [Entitic mass] 30.6 pg Normal 26.7-34.0 [facility] Comment on above: Performed By: #### L IPID, CMP, T7, TSH #### [facility] [address] [place] [address] Dr. Nga Ribeiro MCHC (RBC) [Mass/Vol] 34.2 g/dL Normal 29.9-35.2 [facility] Comment on above: Performed By: #### L IPID, CMP, T7, TSH #### [facility] [address] [place] [address] Dr. Nga Ribeiro MCV (RBC) [Entitic vol] 89.6 fL Normal 81.0-99.0 [facility] Comment on above: Performed By: #### L IPID, CMP, T7, TSH #### [facility] [address] [place] [address] Dr. Nga Ribeiro MONO # 0.4 103/ul Normal 0.3-0.8 [facility] Comment on above: Performed By: #### L IPID, CMP, T7, TSH #### [facility] [address] [place] [address] Dr. Nga Ribeiro Monocytes/100 WBC (Bld) 9.1 % Normal 1.7-12.0 [facility] Comment on above: Performed By: #### L IPID, CMP, T7, TSH #### [facility] [address] [address] [address] Nga Ribeiro NEUT # 1.5 103/ul Normal 1.4-6.5 [facility] Comment on above: Performed By: #### L IPID, CMP, T7, TSH #### [facility] [address] [address] [address] Nga Ribeiro Neutrophils/100 WBC (Bld) 36.6 % Critically low 43.0-75.0 [facility] Comment on above: Performed By: #### L IPID, CMP, T7, TSH #### [facility] [address] [address] [address] Nga Ribeiro Platelet mean volume (Bld) [Entitic vol] 9.2 fL Critically low 9.5-13.5 [facility] Comment on above: Performed By: #### L IPID, CMP, T7, TSH #### [facility] [address] [place] [address] Dr. Nga Ribeiro PLT 194 103/ul Normal 150-450 [facility] Comment on above: Performed By: #### L IPID, CMP, T7, TSH #### [facility] [address] [place] [address] Dr. Nga Ribeiro RBC 4.51 106/ul Normal 4.20-5.40 [facility] Comment on above: Performed By: #### L IPID, CMP, T7, TSH #### [facility] [address] [place] [address] Dr. Nga Ribeiro WBC 4.2 103/ul Normal 4.0-11.0 [facility] Comment on above: Performed By: #### L IPID, CMP, T7, TSH #### [facility] [address] [place] [address] Dr. Nga Ribeiro FREE THYROXINE INDEX T7on FTI 2.66 Normal 1.30-4.50 [facility] Comment on above: Performed By: #### L IPID, CMP, T7, TSH #### [facility] [address] [place] [address] Dr. Nga Ribeiro T3U 36.0 % Normal 30.0-39.0 [facility] Comment on above: Performed By: #### L IPID, CMP, T7, TSH #### [facility] [address] [address] [address] Nga Ribeiro T4 [Mass/Vol] 7.40 ug/dL Normal 4.80-13.90 [facility] Comment on above: Performed By: #### L IPID, CMP, T7, TSH #### [facility] [address] [address] [address] Nga Ribeiro GLYCOHEMOGLOBIN A1Con 2021 ADA RECOMMENDATION SEE BELOW Normal [facility] Comment on above: Result Comment: ADA RECOMMENDED LIMIT 4.0 - 6.0 ADA THERAPEUTIC TARGET < 7.0 ACTION SUGGESTED > 7.0 Performed By: #### A 1C #### [facility] [address] [place] [address] Dr. Nga Ribeiro Glucose [Mass/Vol] 94 mg/dL Normal [facility] Comment on above: Performed By: #### A 1C #### [facility] [address] [place] [address] Dr. Nga Ribeiro HbA1c (Bld) [Mass fraction] 4.9 % Normal 4.5-6.2 [facility] Comment on above: Performed By: #### A 1C #### [facility] [address] [place] [address] Dr. Nga Ribeiro IRONon 10-30-2022 Iron [Mass/Vol] 119.0 ug/dL Normal 50.0-170.0 [facility] Comment on above: Performed By: #### I CHARISMA #### [facility] [address] [place] [address] Dr. Nga Ribeiro LIPID PROFILEon 10-30-2022 CHOL-HDL RATIO NORM SEE BELOW Normal [facility] Comment on above: Result Comment: 3.3 - 4.4 LOW RISK 4.4 - 7.1 AVERAGE RISK 7.1 - 11.0 MODERATE RISK >11.0 HIGH RISK Performed By: #### L IPID, CMP, T7, TSH #### [facility] [address] [place] [address] Dr. Nga Ribeiro Cholesterol [Mass/Vol] 201 mg/dL Critically high <=200 [facility] Comment on above: Performed By: #### L IPID, CMP, T7, TSH #### [facility] [address] [address] [address] Nga Ribeiro Cholesterol in HDL [Mass/Vol] 78 mg/dL Critically high 40-60 [facility] Comment on above: Performed By: #### L IPID, CMP, T7, TSH #### [facility] [address] [address] [address] Nga Ribeiro Cholesterol in LDL [Mass/Vol] 108.8 mg/dL Normal [facility] Comment on above: Performed By: #### L IPID, CMP, T7, TSH #### [facility] [address] [address] [address] Nga Ribeiro Cholesterol.total/Ch olesterol in HDL [Mass ratio] 2.6 {ratio} Normal [facility] Comment on above: Performed By: #### L IPID, CMP, T7, TSH #### [facility] [address] [address] [address] Nga Ribeiro HDL NORMAL > or = 60 mg/dl - LO W CARDIOVASCULAR RISK <40 mg/dl - HIGH CARDIOVASCULAR RISK Normal [facility] Comment on above: Performed By: #### L IPID, CMP, T7, TSH #### [facility] [address] [address] [address] Nga Ribeiro LDL CALC NORMAL SEE BELOW Normal [facility] Comment on above: Result Comment: <100 mg/dl OPTIMAL 100 - 129 mg/dl NEAR OR ABOVE OPTIMAL 130 - 159 mg/dl BORDERLINE HIGH 160 - 189 mg/dl HIGH >190 mg/dl VERY HIGH Performed By: #### L IPID, CMP, T7, TSH #### [facility] [address] [address] [address] Nga Ribeiro Triglyceride [Mass/Vol] 71 mg/dL Normal <=150 [facility] Comment on above: Performed By: #### L IPID, CMP, T7, TSH #### [facility] [address] [address] [address] Nga Ribeiro VLDL CALC 14.2 mg/dL Normal [facility] Comment on above: Performed By: #### L IPID, CMP, T7, TSH #### [facility] [address] [address] [address] Nga Ribeiro PROF 14(COMP METB)on 022 Albumin [Mass/Vol] 3.8 g/dL Normal 3.4-5.0 [facility] Comment on above: Performed By: #### L IPID, CMP, T7, TSH #### [facility] [address] [address] [address] Nga Ribeiro Albumin/Globulin [Mass ratio] 1.1 {ratio} Normal [facility] Comment on above: Performed By: #### L IPID, CMP, T7, TSH #### [facility] [address] [place] [address] Dr. Nga Ribeiro ALP [Catalytic activity/Vol] 91 U/L Normal 46-116 [facility] Comment on above: Performed By: #### L IPID, CMP, T7, TSH #### [facility] [address] [place] [address] Dr. Nga Ribeiro ALT [Catalytic activity/Vol] 19 U/L Normal 14-59 [facility] Comment on above: Performed By: #### L IPID, CMP, T7, TSH #### [facility] [address] [address] [address] Nga Ribeiro Anion gap [Moles/Vol] 9.2 mmol/L Normal [facility] Comment on above: Performed By: #### L IPID, CMP, T7, TSH #### [facility] [address] [place] [address] Dr. Nga Ribeiro AST [Catalytic activity/Vol] 18 U/L Normal 15-37 [facility] Comment on above: Performed By: #### L IPID, CMP, T7, TSH #### [facility] [address] [place] [address] Dr. Nga Ribeiro Bilirubin [Mass/Vol] 0.5 mg/dL Normal 0.2-1.0 [facility] Comment on above: Performed By: #### L IPID, CMP, T7, TSH #### [facility] [address] [address] [address] Nga Ribeiro Calcium [Mass/Vol] 9.5 mg/dL Normal 8.5-10.1 [facility] Comment on above: Performed By: #### L IPID, CMP, T7, TSH #### [facility] [address] [place] [address] Dr. Nga Ribeiro Chloride [Moles/Vol] 105 mmol/L Normal 98-107 [facility] Comment on above: Performed By: #### L IPID, CMP, T7, TSH #### [facility] [address] [place] [address] Dr. Nga Ribeiro CO2 [Moles/Vol] 29.5 mmol/L Normal 21.0-32.0 [facility] Comment on above: Performed By: #### L IPID, CMP, T7, TSH #### [facility] [address] [place] [address] Dr. Nga Ribeiro Creatinine [Mass/Vol] 0.68 mg/dL Normal 0.55-1.02 [facility] Comment on above: Performed By: #### L IPID, CMP, T7, TSH #### [facility] [address] [place] [address] Dr. Nga Ribeiro EGFR-AF BAHRAINI >60 Normal >=60 [facility] Comment on above: Performed By: #### L IPID, CMP, T7, TSH #### [facility] [address] [place] [address] Dr. Nga Ribeiro EGFR-NON AF BAHRAINI >60 Normal >=60 [facility] Comment on above: Performed By: #### L IPID, CMP, T7, TSH #### [facility] [address] [place] [address] Dr. Nga Ribeiro Globulin (S) [Mass/Vol] 3.6 g/dL Normal [facility] Comment on above: Performed By: #### L IPID, CMP, T7, TSH #### [facility] [address] [place] [address] Dr. Nga Ribeiro Glucose [Mass/Vol] 100 mg/dL Normal 74-106 [facility] Comment on above: Performed By: #### L IPID, CMP, T7, TSH #### [facility] [address] [address] [address] Nga Ribeiro Potassium [Moles/Vol] 4.7 mmol/L Normal 3.5-5.1 [facility] Comment on above: Performed By: #### L IPID, CMP, T7, TSH #### [facility] [address] [address] [address] Nga Ribeiro Protein [Mass/Vol] 7.4 g/dL Normal 6.4-8.2 [facility] Comment on above: Performed By: #### L IPID, CMP, T7, TSH #### [facility] [address] [place] [address] Dr. Nga Ribeiro Sodium [Moles/Vol] 139 mmol/L Normal 136-145 [facility] Comment on above: Performed By: #### L IPID, CMP, T7, TSH #### [facility] [address] [address] [address] Nga Ribeiro Urea nitrogen [Mass/Vol] 19.0 mg/dL Critically high 7.0-18.0 [facility] Comment on above: Performed By: #### L IPID, CMP, T7, TSH #### [facility] [address] [address] [address] Nga Ribeiro Urea nitrogen/Creatinine [Mass ratio] 27.9 mg/mg Normal [facility] Comment on above: Performed By: #### L IPID, CMP, T7, TSH #### [facility] [address] [address] [address] Nga Ribeiro TSHon 10-30-2022 TSH 0.871 uIU/mL Normal 0.358-3.740 [facility] Comment on above: Performed By: #### L IPID, CMP, T7, TSH #### [facility] [address] [place] [address] Dr. Nga Ribeiro Covid-19 PCR (CVDTB)on 10-01 SARS-CoV-2 (COVID-19) RNA VALENTINA+probe Ql (Unsp spec) Not detected Normal NOT DETECTED [facility] Comment on above: Result Comment: When [...] for this test is supported by the [employer] Operator of Health and Human Service's declaration that [...] used). Performed By: #### C VDTBH #### [facility] [address] [place] [address] Dr. Nga Ribeiro INFLUENZA A AND B AGon 10-22 INFLUANEGH SEE BELOW Normal [facility] Comment on above: Result Comment: Nega tive for Flu A protein angiten. Infection due to Flu A cannot be ruled out. Flu A angiten in the sample may be below the detection limit of the test. Performed By: #### L IPID, CMP, T7, TSH #### [facility] [address] [address] [address] Nga Ribeiro INFLUBNEG SEE BELOW Normal [facility] Comment on above: Result Comment: Nega tive for Flu B protein antigen. Infection due to Flu B cannot be ruled out. Flu B antigen in the sample may be below the detection limit of the test. Performed By: #### L IPID, CMP, T7, TSH #### [facility] [address] [address] [address] Nga Ribeiro INFLUENZA A AG Negative Normal NEGATIVE SEE COMMENT [facility] Comment on above: Performed By: #### L IPID, CMP, T7, TSH #### [facility] [address] [place], [place] [address] Dr. Nga Ribeiro INFLUENZA B AG Negative Normal NEGATIVE SEE COMMENT [facility] Comment on above: Performed By: #### L IPID, CMP, T7, TSH #### [facility] [address] [place], [place] [address] Dr. Nga Ribeiro INTERNAL CONTROLS Within Normal Limits Normal Wi thin Normal Limits [facility] Comment on above: Performed By: #### L IPID, CMP, T7, TSH #### [facility] [address] [place], [place] [address] Dr. Nga Ribeiro MRI Shoulder w/o Lefton [...] Maulik Stewart on 10/02/2022 1335 Normal [facility] MG MAMM SCREEN 3D ZARI CADon 06-16-2022 MG MAMM SCREEN 3D ZARI CAD Patient: CONY MATOS Exam Date: 06/16/2022 : 1960 Gender:F Ordering : DR ANDREW ORTEGA . Admission #: [id number] Family : Order #: [id number] CLICK HERE TO VIEW EXAM RADIOLOGY REPORT [...] No Treatments Excision Family Cancers None LOCATION: [facility] BREAST COMPOSITION: Scattered areas fibroglandular density. [...] Nixon M.D. on 06/16/2022 at 13:28 Normal [facility] PAP ACOG PANEL 2: 30 to 65on 05-30-2022 . . Normal [facility] Comment on above: Result Comment: Perf ormed at: [facility] Performed By: #### L IPID, CMP, T7, TSH #### [facility] [address] [address] [address] Nga Ribeiro Age Gdln ACOG Testing 30-65 Normal [facility] Comment on above: Performed By: #### L IPID, CMP, T7, TSH #### [facility] [id number] Nga Ribeiro DIAGNOSIS: Comment Normal [facility] Comment on above: Result Comment: UNSA TISFACTORY FOR EVALUATION. Performed at: [facility] Performed By: #### L IPID, CMP, T7, TSH #### [facility] [id number] Nga Ribeiro HPV Aptima Negative Normal Negative [facility] Comment on above: Result Comment: This nucleic acid amplification test detects fourteen high-risk HPV types (16,18,31,33,35,39,45,51,52,56,58,59,66,68) without differentiation. Performed at: =G Performed By: #### L IPID, CMP, T7, TSH #### [facility] [address] [address] [address] Nga Ribeiro Methodology: Comment [facility] Comment on above: Result Comment: This liquid based ThinPrep(R) pap test was screened with the use of an image guided system. Performed at: [facility] Performed By: #### L IPID, CMP, T7, TSH #### [facility] [address] [address] [address] Nga Ribeiro Note: Comment Normal [facility] Comment on above: Result Comment: The [...] #### L IPID, CMP, T7, TSH #### [facility] [address] [address] [address] Nga Ribeiro Performed by: Comment Normal [facility] Comment on above: Result Comment: Kolton Carpio, [employer] (ASCP) Performed at: [facility] Performed By: #### L IPID, CMP, T7, TSH #### [facility] [address] [address] [address] Nga Ribeiro QC reviewed by: Comment Normal [facility] Comment on above: Result Comment: Adore Sloan, Supervisory [employer] (ASCP) Performed at: [facility] Performed By: #### L IPID, CMP, T7, TSH #### [facility] [address] [address] [address] Nga Ribeiro Recommendation: Comment Normal [facility] Comment on above: Result Comment: Sugg est follow up as clinically appropriate. Performed at: [facility] Performed By: #### L IPID, CMP, T7, TSH #### [facility] [address] [address] [address] Nga Ribeiro Specimen adequacy: Comment Normal [facility] Comment on above: Result Comment: Spec imen processed and examined but unsatisfactory for evaluation of epithelial abnormality because of insufficient cellularity. Performed at: [facility] Performed By: #### L IPID, CMP, T7, TSH #### [facility] [address] [place] [address] Dr. Nga Ribeiro Coding Summary.on 12-30-2021 Coding Summary. [id number] Gh 0bWw+PGhlYWQ+LT0JPOQaA 06fjRLchD1SC9jPEP0LMGD WCDIDHB7WGE0fpKO9XBnmO 2VybiAv HnpajFYmBI61GKn8LJF2aW ovPDvbkR7eiSPaC5f9ZwGi XQ87uC01YLjpCETmIhE0Ih ZpbjsgbWFy C3eiCjXmhUWoFdn+PHRhYm xlIHdpZHRoPScxMDAlJyBz fKovHM9jMn2eIBOcCLPxwJ xhcHNlOiBj q0xjIQKlFPtvUK7qnXyoN8 QiiHD4LSVre7o6Tz62fKG+ ZGHuOCL1fShzQEoxo859Qj Ino4ngRGG6 qVVdFLmkEZS4F39ea7D2JL IqPFIrGMJ8rNV8tB1uoNfw ipmkP8SycESqFrJ9YXX0hJ AnbT4feGlm cfjgxY8jEyo+E48PZO5IXU HKAX3QOgf7H4ZbJlcxyNK+ HE35OKXqAZ60wRIgbFOtb7 nbpJv4MdXh MYGyRKF5gDzdOJvch6WrTR ToT69gnBWay7U4FUYbwBii mSOxFjFjjKO9vQ8yRLlvqw vik7ftnmmb Sqheu8kjex14pR57W32pEN qbOFNxNAZ8ZNGvTCPrrGcr fs1ymT3mCe2+DEfzw5frl8 svzKr0UsKv NCBkddYqlZdzFHV3u6GwMb 45A9XjbLkym6EdWpk6nc29 hBJde3G4hNK1JQuaRFSssN 3nGVijHwD1 YHHkNtKrxQ91vRMlAFweJk 7wjFuhvDmvZP5pHZMbduhd XTOzxW4eTIQvyVWgeOqrBC 4wNTBpbjtm l611AhSsPHW2AHDhjOOnG1 RspE5cVaUdTBJrOWMdE4Dx mMXkTSkvF758CNymIcF8UT RcrsXbW6Gj CKUzwYxcZwC6s2T5Dw3Bk1 UuiyxjEPZ4VVaqZARtZiXw ZxCzEfX1W8CkKnz3JZUfsZ fpCA7lG7Sv JCOvyoujecsjkCM7XMFlKL ZhiQ48vCLyJXfhYe8my4Y7 i269IJMoPMHghZ62Op5aiE ogMTBwdCBU xB2itiaai3ftipvxIeJmIZ XpZTn2MSv1SUZnsWfdWnSn YIC4SaB5BPG2dPDgoE7fxB oeqjoyuH5k Oyc+O70gdV4fLNS6FSA9ng gzCCJklaPcQH30QL28Y6Ye PjwvdGFibGU+PGRpdiBzdH gkPQ1rNdQy e2nwx0FjGPaaS0OmWEAoIY jjWot7OKAqONX4kLV3mK6g MNGpYKnvq6B8lTA8T6Yvle Bcrv6yk2ou YYCtMTcwN63evILvr6W4VB IdoDA1YQDddYxyJoTtcN91 Oyc+FJVxwXptd0WwEkavy2 gce7zuxOl2 JqGcQONkaxRunFwnSLU0k6 PyYc42W85yHMydUVPvWCCe KSMeLHDxnGzzzv4tuB4jYt 8+PGNvbCB3 xYN9hE9yVTSgPdW0VMdxY0 46GaBdaAFfIqrcx5yll7ne dCu4JbAyYDNqvpKlgOrmTG Z0j1CbLj94 C92aJMrfUMFuTXYgSSYrZR FduPcmla4imP0tMa6+PC9j o6ovip74nI10lVQ+PHRkIH W3rUbxDKpz OPAxjE9lCOzyRiO6VODhMi BbkL34nCHeDBplQu2ylQte vQxeNA6zQZLgbvlle337Uk Efk8ejIVZk dPAzMQwpNLP2Y49yf7G5AS WoGRJpTBA8zPK8rA9xvOhr bjogbGVmdDsgdmVydGljYW epKFbxK891 IHRvcDsnPlBhdGllbnQgTm JjKOy7H4PvUwm2KIWqtKcq SR6ivYMnWWqdWl1fsNmqgF xcXL1aBATo zijvx219DcCrg8mxXKWogP EdBQqsAVY3D35ji4C7IIUs CHXbICA3hQB5yL1ibHyvft ogbGVmdDsg paAhzKccDWplQLfjG785DP RvcDsnPkJpcnRoIERhdGU6 WE57AO41mMWcx9M7vOJ1F4 BhZGRpbmct rlaidGB8YFZaIMPzjY66Ao 0qtDgkSo6cESSqUVX6BGHf nJArC7RpaH5mLhUnGYVkVD DpC2DakDVq YSgfF861FQhfFiM0UJHgfm ObN4CwWQZbiQcyEsD3s5U7 Ak2PL0X9DE41US30oGYek0 H4eSG5A2Am EAEujglwgjnzsMM7LYSyNS IftW12Yr1hfJfjGb7hHQHd CGU9JELncQNpR1ViuR9gVx AjMDAwMDAw F4JvmFMmWSsdB710NFzbLx C1OWMpeeAoN2IwWWYkdFek ShE6x9A4Zk3SKHm1IW13LL 04oHUuh5U8 lQA7O1WpPCHqnllepfybeW D7YWYyMTUegN43Ei8znJyj Jj0zOXPhPAP2BOHcaKEbT2 BkdJ7xPaTj CSUfRLRzS9ZziUAqUBrkT6 41FQwvXtQ7FYXjrkFzC5Tw IFTwpHvoAbY5a1U0Ru2TSN ClLB17KYO7 sCQ8BY83PC10Y4EnCzxtlS FibGU+PHRhYmxlIHdpZHRo TWmcNIQmMzArdAapKC0cXj 9yZGVyLWNv yThfcXMsKyPxa4kgVDRyOP mxZY0wpFgiM3OwjQP5CZKw x5l9Sr83E12nS7AeqAR+PG AmrXW2rYS9 nJ1vPqDcBhW8YBvlO872Ye HqmQYqZkxrh2slt2evfWt6 DiJ5NSLegiFcrKxhFMN8y5 GnPb74F41h IHdpZHRoPSIxNSUiIHZhbG zcem1zdK0dAs9+PGNvbCB3 bLY5iF5bAiLkRdY1OVdaM3 49InRvcCIv Zoxjr8gpo0sxnIq1WiBqNG ZsxkZpuXchJQG4c3WkBf32 R9FdoLpgu8WtPuo8gy70oL Vrs2D1fPO9 X4QePWKaibjoiUNbfGpkVW 7vEZOlfjkrIYYcaI3yGIBq Z7y2ZaBjEbP0PAulX2Nilg I0TWNlnSIy WPjsMGB7W64ug2T6MEXnMN UbRCQ7eJC4xF8nuXtefiuc bGVmdDsgdmVydGljYWwtYW raT055PNLm lZylFUWckD8xOFYrdBZrtE pgPE8eGZIftpldWr4LYPNN UiwgQkVUVFkgTDwvdGQ+PH QzTZY0dLzp ASgiLVLpgM1eQSDdE7w3No JbVzN8EHruX2VbGTVibcuc Dr83dK1kAyElAjA7POnvV6 TqtrG4JEOj fNIuWUdpLOD8G00qs8C8QP FjCAZaGGW3aYF0wB5zrFgg bjogbGVmdDsgdmVydGljYW lkANjpS312 WEFdkUynTqXmCkN4YeR9Ly V1P1EsOym8NWGmhZonYU9k hABsTYieRp6hzEuihWsvCD 4wNTBpbjtw UZZlxK5fIZCduJXzwRuoNC 3cKAReitehk200UvAeXJX6 GXBnwEXzV5AniA5mGfQfRN CvVLLiV4Rn hZTeMOdzX698IStvKsK7QH AipcCaK5KfRVUxnJvoGzQ8 d1H7Pp94ARPBYVMnvagdzP Q+PHRkIHN0 rScaHFkqNPCpgZ7jAHGvX3 e9BcJkCoY2NKilQ7DtNUIi bzvrGt08wC9hIjEbYdI9JP jqL0JovlS0 HRGcaNKtUJldQPX8P59sd3 N1XSXgNURqFHF5hJE3fB6c bGlnbjogbGVmdDsgdmVydG ljYWwtYWxp B769YPNzxGxdWuBjcCWhKK wvdGQ+LQVjWDD2vCotMSfn ZZSxxA1rJXKfU5c2UyNfPn F7HVkbK2Ca XOFqbqynTy03sS6fTaOqPf T1QMnuV6EorjB7YJKavAXr CRleYYT3G32ez7G3NRCkBW DiWXM2kUB7 xW8muAwshoyiqCHmgMlwzz JolIuvFTnyEPybK600UULh jFpzJb90mSHenFrocuH8M1 RkPjwvdHI+ QM02IUYhVN50oCRwpYXzj6 ruqEy3AgUdJVDyYMX1gCpt ESuyu2QgGACjL93mmPNbe0 M8FURzkFpu mGJjFdNuzPB5oU6hYOiyss nyt9dlrvysWkrjq5rscx18 yT32Z76xKBgpNDQkBSLzZI UiIHZhbGln kh5eoX0oMt7+SQWwsFK1jD A6pU4nCwPvAwN5AOdbW142 MdMyvHCyDqqqz9dum5jmfX c8SuJkBBCl kbWpkVedUUQ0t5BfRk41P8 9sIHdpZHRoPSIyMCUiIHZh yDojpr3tsJ6hCp7+PC9jb2 tmjh93lY68 dHI+FOIfMOO0hLmjHCsaPJ PhkC1uKTipWjA1IYXiIxIm pF36zIDhWWkoEb6wcAoqcF brLX3fQAPr cpxgm770BaBdv7prWAQqgB RrRXrcNGN1A98qm9Y9NXCd UEItZAK3qUB2dG4wwItpqk ogbGVmdDsg fkCwwIpvVJdzIDopM977LX QdqAmzCdPufVJoZ9qilvLF CS8sYhmqmQJ+CVRlJTU8gD xlPSdwYWRk kC2kIHIzY3k5EkZhWaM6PG arJ0HfudR8LAHtbKXlDXMh uZSAwU2lwobkq5vkzltoZn AwMDAwMDt0 MDd6EDEuoQunSlIfDPF9Zh O7UQO2iDQzdM7eyNzutpuy gC8nQbk+RklOOjwvdGQ+PH MmMYO5sNwz FWirMHDezG4aKDChZ6v3Gc OhUxW2ALiqR4JgtpL9FUVz sAGwZGQnuFODbP6wnucri2 xvcjogIzAw CSSiERt3VMn6JFHteYktWm QqOMW5OvL6ECB1hMDnpX7i yBuxoxitvC8uWcb+TVJOOj wvdGQ+PHRk QCJ8wPbhUWryZMPhbQ1tCL WcT3n5AePqDfP5VYgwU5Qu dwP1DUMhcEJtTENzcWCSiL 1gnhmhb3bc ldtiElXrGEUvGAu2QKk4DA FemCssBjHzOVR7LbR3AFP5 rNLkuO2whCeiiqfucN2wWz c+VJN3BQK5 NR79QR18I0KkHbsukALsxV U+PHRhYmxlIHdpZHRoPScx FBFeScTqgBkhHJ4iQw3cPJ VyLWNvbGxh cHNl (more content not included)... [facility] Coding Summary.on 12-27-2021 Coding Summary. CD:[id number]:[id number] Gh 0bWw+PGhlYWQ+YJ3NDRPqR 58rjHHlhD3MA6pYNP5GDWR TIEAXAY4HVO0pgTF9OWdpR 2VybiAv NykfeIYaML00YYp4GVJ5tH mdPTaghL3ihOHeI3w2GkMu IQ27tE01GZguDQLnPuS7Ib ZpbjsgbWFy K2tbDbOtoCMvLph+PHRhYm xlIHdpZHRoPScxMDAlJyBz zJjhHH4aBe8zFSCyDYDtwR xhcHNlOiBj v0reUDKoMJfqJR8clWzaU4 RzeRY5SHHus4o6Ww61iWS+ LUAdQEL2gRekUIcyi810Wd Wpz9fjNKX1 zDTbWHknNUV7A82gu0U4NS XqTLYfBDV0jOA1hE0pdYen ezmaI2IwrAOrEmO2YGG6hC LomH6buVxt oxvhpI9fAgo+G24EZY7VOQ ZMOH0HMcm2C9TzNczppCE+ VV32CWBuKC03qGQeyGXjn4 ohhEj2DpJs WBCkMFK4hLmjOJwbq4HpBQ VyX16hhTVga6A2QGNffKdk nICeCzQdlUG9cF4rUCajcc nal9vkpzta Ijptm7jnbe60zO59O07kUL toKOLaMJW4ZMGxJYLtdItm oi6ezQ0gXb3+RAshu3jsc4 twvBw8PmSw TFEawcYouBymITC8p5BwKa 92J7GmhIjij3IfXig7kt54 eVQrn1Z0yYY0RCkjMITclU 7xNWcvZjL0 VYBoKfOgcK41uEHcKAvzPb 0zwPsuvYpzVD9gWQLzwnsd PCSqyC5nUPMplKQmuFwgHS 4wNTBpbjtm d107WuBnADR7DERtiYHjN5 MnxB7gNwEpJTZsSCGaG8Oz gCEuGHoqI624IPxtGjC7AB TfoxJwW8Lk LYTghYbwSoQ2e9G3Iq0Jo8 LiuxbeMGQ5CKxrHBKrWfL0 KpEoWfL8P8HnSpe2VHWjsP prJY0tL4Qo YILjvextzsljhCI9RQRsJU UqeA32iOUdUPkoVo4og7U6 p946VQNgYTJwdF31So7syA ogMTBwdCBU fJ0jgfcjr2qymtvhKfIxPP RaOPd2WAa8ISJrgXowQzIb YTC3SqA3LJF4dBCvdL1owW iqxpnrlZ6w Oyc+X09zgF0bXIE6NQK5iq okSMDsrnXtII81LH64S0Ea PjwvdGFibGU+PGRpdiBzdH xkBN5hNmJq s6bvs6JbHNtwW3VoGSOrSR zfFev9ZVJdFGN2mYX4tU2r QIBxUAgjm4K3mVU8R5Tevc Hotk5xo1yz FERwYPneD51jaHNsj2D4NB LtgYK9MUDxwOumQbGjpG38 Oyc+BGFuvAmmf9OeRvzfv2 sli2ngmNf8 OzGaMGLoydRemBcuEEB6f8 ItYn85R56mHYbpNEIqOPDw XCFuMSSunLewhe2bfB8fJm 8+PGNvbCB3 wHG2kK2kYTPcRdM0IVmfM3 80HcBwfVUbQlsug8pxo3bx iVt3EjJoXPFricSexAmjNW I2n2YvTn76 L96tFYxaKRDqTVIgBUReLD PkxJxceb2wkM6uBc6+PC9j z5xhbv65yC77jKG+PHRkIH F3mWzeRKmg IXRodD2jYQmjPuQ2CQRvAq QfnI73uWQeMBewQi0iiDzb wWoeJE9dOAErtokem576Gb Cgb4biMAMe fKAxFTilREU9M59ed1O2UP TfUYWuZTO3jCE9qA6thCan bjogbGVmdDsgdmVydGljYW arAPowO242 IHRvcDsnPlBhdGllbnQgTm LdONh1N4PuFsd0KBSqeQrr JY0hcLLsIMmkJq9nwGrwnA oeKG6aWEZl xuwid863NyXdz6utUOOvzC UmWIixJJP9O24rp5Q3UNXw UOMhCDQ8bDD3vD9mfZjoho ogbGVmdDsg jvKsbJpgEWzdILluX358PR RvcDsnPkJpcnRoIERhdGU6 LT53YK07sFUby0X7gQA5R6 BhZGRpbmct flfngQK3PHCuTIZjpJ76Gl 1chYnyNt2xODGtBDM5FOYv aHJwK5SpvX9cGsKcFGSaMG PvR0WckEWv BJswY655BTmaIkV5EOAsds UfB8UkTALgaNjgZjH5s6O2 Bx1XF9O0EY11IG02mDMcw5 Z3mSM5S2Rm PDCegtsdxyjooXG0SOViTL VsjQ83Go9xdXacIt0vNADo HOL6DBAleSFzI6OruB4kGb AjMDAwMDAw W4ZmoOIuWIemH716HDtuMa Z0OJAvilAjU5QuLFYzqMvs VvI1i1T4Fm4HCTz1PY64NP 15dHMhd1N3 oTX0P6ItOLWdnoijtqxdfD Y5BHYpSQRgtT84Kn9ocOwr Ld7gTFRlKBR6IHOehPVmG3 UdvE2zWcWf SCUpPUMlT4ObnBXnIDqhE9 53VEpwMpN0IVQldbOjP6Dc SKEeeAhjOaY4z0C3Xz2KWB GzHL85IIG6 uZU8MJ54NV55I1MxAahmjW FibGU+PHRhYmxlIHdpZHRo DSouMHSqGjBpuHrrIN4uSe 9yZGVyLWNv jIyjrPGgMdZqf6xlHSHpDC xuAY0atNciX1AyiPH5ODVm c9q1Na10G19gA0TerOY+PG QliRH6iTN9 rQ2tQsJmOvN1TQuiT609Ga EiaQPuZgzaz3ozo1pxtTf5 QtO3DYUwibPqxTqdVFQ6y5 OkSi64E39s IHdpZHRoPSIxNSUiIHZhbG lrsc8mmJ2aCv0+PGNvbCB3 kQR3fF0bViQqZeV9JAorA8 49InRvcCIv Yykdl7dzl2yojKw7AmAoYC HxeeOcgWuzYVY7m1UtOv10 B0NkuItlg2UdIgl8pc31oN Usb4A9zZL9 A2OeOMXmcurveHYfiHojLT 9mSZKbdxdqBIZpoQ3kKMBv D3o0PxTjNxS9QMeeC2Rncm V3XGFreKSk IByqTZJ4Z09nb6H6XNMqLG LyQXT2tTZ3mU6plGayfixu bGVmdDsgdmVydGljYWwtYW udH155NKAp wRaoXIHutN8cJSLpmRKrjC bkQC0vHUByxgaqNu8JDAWH UiwgQkVUVFkgTDwvdGQ+PH MpRQV1pUvy FHdwGTJbkH3lLTMoS7k7Mc LvYgG0FKixG8DjKRJglmgg Gq62cG3vMvMtIlQ5BPbqA6 TywuJ6EJAa xQFtMRjbXIV5V81wb1G5ZO EdJLReTXX2lOI9aA8voOux bjogbGVmdDsgdmVydGljYW zpYUeaQ757 YMZjyGjkBgQnUpV7YvD9Rs N2Y9YlFip5BJFsxIyoKC7n fSDbXPbsHa8qmQzcvSdsCV 4wNTBpbjtw LMUovF6bZCEinPMkmWraPF 1jKJAykxljk426HaWcDSS4 TOSppZTwY4NbvC9hWqRrVW AaMOTwT2Nq wRExHIbdV544DIspTyF6TZ UergUtB7PoGQHzkOmnMqO7 r6C9Mw96YTKZQYSgwdufuN Q+PHRkIHN0 bJgqEIwjJZZedO6nWOXpM8 s4CxGoLeX5JEcyJ0JfDKXt uyhtSu37zO9pSoJxSlB5NO ddD2QltoB5 MYFocBOzPWvgXWO9V50pw9 M3KRPjPIVtGKG4lCH0qX4o bGlnbjogbGVmdDsgdmVydG ljYWwtYWxp T346NYIlaLseKsTzyYTiWW wvdGQ+VSKdLVW2sSjkZIpz LVFvkW5dMYPcD4d2VmRgZk C4NHuuH8Vs GOTatqzvQf36hE7iUkZdVv D9ENtxO5PnenR8ZIDhsHFs WZsnRWZ7C88ra2D9VJCqND FeILO2xYG4 kP1aiDymfxxxtJYkcPkvkh TrdKgjZHwwEDolU243FMUi hHzlVa35xVEthErpoqO8Y5 RkPjwvdHI+ UI86YXCrSO87zGYoaLEro8 mumEl8TxBmNILmLJE8aDrt JEoch7WhXJXuZ41tvDTtu6 Q7RBHehSfe oOMvRmOliBX4vL3hXXooym dhy8togcmxFmlsn9ihya13 tZ67N75mWFmyRCHsFDEbBE UiIHZhbGln rt7vhL0dRr4+XOOpuTR7fF X2kX6dCmDdOwW2OWwvL250 VeYogFIgHbvkq8ekz9hanW a6DbQyXWCd khGlfOroIFQ5b9TkFy49I3 9sIHdpZHRoPSIyMCUiIHZh hKmrkx0ewK5sSr8+PC9jb2 crpt69bP43 dHI+TAZzJDD3sYvgKMavXI TfvM2oXPraGxP0SBAfQhQo pO19bBMqQRfiEd8qmGazbN tqMD3hFJGc afjjn683FsJps0jrLNHwaR TiIEvvVBL7X11xl9Q7JUAm IIEdNVC1nTD2dY6kqDtsqh ogbGVmdDsg qjGgzGwyIDnqUDhkM534AO CxgBgyUlJgyKOkG4fszsGT MZ0lQvzeqYP+VAYpBZS0vX xlPSdwYWRk gL4eNXUcQ1q3WsExQfM8DR rsG2YordU5ILZvzHRdPUMq sZADvO7gsyjnn2qwtcdkQx AwMDAwMDt0 DPg3TRZtuHlkUuTmRSU6If J4CCN9mUBreI9oqVazwycp jA2yIee+RklOOjwvdGQ+PH EwXTL7nKkn QJdlWZNncX4mVFGwD0f2Yq RuPhF7VTlyM7IdkbD7WWWe yNQxWQYrtKLBxU3cdhvoi3 xvcjogIzAw HSDcJAe2XAj0NLOklLbqHd AeVVX5FpB7SOL1tQHdxC9p xLjfevixiB7zPat+TVJOOj wvdGQ+PHRk QDI5yAvhJBdrZRIdzP2sKY FcQ5i1JgSeDxS5EUflA8Zh jxI0RDGfxGLeUAOfbAGQjS 3lbtcmg2mw dztsBdAnRHJkTWi8UKt6GW WigTlkDwKwOMP9KsO1AGN3 iWEkdZ7wmZceulljsA6mSr c+ODA2JMS9 RP09RF07G7ZyXqxbnKUokR U+PHRhYmxlIHdpZHRoPScx WQDsAkEplZrfSZ6vMj0gXN VyLWNvbGxh cHNl (more content not included)... Normal [facility] Consent for Treatmenton 12-01 Consent for Treatment [id number] 0CD:127 Normal [facility] BMPon 12-19-2021 Anion gap [Moles/Vol] 14 mmol/L Normal 6-16 [facility] Comment on above: Performed By: #### 1 [id number], [id number], [id number] #### [facility] [address] [place] [address] Calcium [Mass/Vol] 9.6 mg/dL Normal 8.9-11.1 [facility] Comment on above: Performed By: #### 1 [id number], 1333351, 3311579 #### [facility] [address] [place] [address] Chloride [Moles/Vol] 105 mmol/L Normal 101-111 [facility] Comment on above: Performed By: #### 1 [id number], 9850938, 0247613 #### [facility] [address] [place] [address] CO2 [Moles/Vol] 27 mmol/L Normal 21-31 [facility] Comment on above: Performed By: #### 1 [id number], 2519085, 8431207 #### [facility] [address] [place] [address] Creatinine [Mass/Vol] 0.9 mg/dL Normal 0.5-1.3 [facility] Comment on above: Performed By: #### 1 [id number], 8336624, 6295282 #### [facility] [address] [place] [address] Glucose [Mass/Vol] 95 mg/dL Normal 55-199 [facility] Comment on above: Result Comment: If t his glucose result represents a fasting glucose, interpretation should refer to the following reference range: 55-99 mg/dL Performed By: #### 1 2802663, 6487491, 9501702 #### [facility] [address] [place] [address] Potassium [Moles/Vol] 4.3 mmol/L Normal 3.5-5.3 [facility] Comment on above: Performed By: #### 1 [id number], 2610159, 8828729 #### [facility] [address] [place] [address] Sodium [Moles/Vol] 142 mmol/L Normal 135-145 [facility] Comment on above: Performed By: #### 1 1855062, 8274195, 6470552 #### [facility] [address] [place] [address] Urea nitrogen [Mass/Vol] 23 mg/dL High 5-21 [facility] Comment on above: Performed By: #### 1 0412800, 0968426, 2253072 #### [facility] [address] [place] [address] Urea nitrogen/Creatinine [Mass ratio] 26 No Units High 10-20 [facility] Comment on above: Performed By: #### 1 5352700, 7519878, 6622613 #### [facility] [address] [place] [address] CBC w/Indiceson 12-19-2021 Erythrocyte distribution width (RBC) [Ratio] 13.3 % Normal 10.9-14.2 [facility] Comment on above: Performed By: #### 1 [id number], 8612665, 9202211 #### [facility] [address] [place] [address] Hematocrit (Bld) [Volume fraction] 38.6 % Normal 34.0-46.0 [facility] Comment on above: Performed By: #### 1 [id number], 4390962, 0863619 #### [facility] [address] [place] [address] Hemoglobin (Bld) [Mass/Vol] 13.6 g/dL Normal 12.0-16.0 [facility] Comment on above: Performed By: #### 1 [id number], 7330473, 9418883 #### [facility] [address] [place] [address] MCH (RBC) [Entitic mass] 31.1 pg Normal 27.0-34.0 [facility] Comment on above: Performed By: #### 1 4318843, 7849624, 1188019 #### [facility] [address] [place] [address] MCHC (RBC) [Mass/Vol] 35.2 g/dL Normal 31.4-36.0 [facility] Comment on above: Performed By: #### 1 7718238, 2602994, 6915738 #### [facility] [address] [place] [address] MCV (RBC) [Entitic vol] 88.2 fL Normal 80.0-100.0 [facility] Comment on above: Performed By: #### 1 4907096, 8282645, 0433997 #### [facility] [address] [place] [address] Platelet mean volume (Bld) [Entitic vol] 8.2 fL Normal 6.4-10.8 [facility] Comment on above: Performed By: #### 1 1298485, 5423318, 0060602 #### [facility] [address] [place] [address] Platelets (Bld) [#/Vol] 231.0 E9/L Normal 150.0-500.0 [facility] Comment on above: Performed By: #### 1 [id number], 3465031, 1544045 #### [facility] [address] [place] [address] RBC (Bld) [#/Vol] 4.4 E12/L Normal 4.3-5.9 [facility] Comment on above: Performed By: #### 1 3272718, 9950744, 6666404 #### [facility] [address] [place] [address] WBC corrected for nucl RBC Auto (Bld) [#/Vol] 4.5 E9/L Normal 4.0-11.0 [facility] Comment on above: Performed By: #### 1 5886073, 4643619, 2463465 #### [facility] [address] [place] [address] Consent for Treatmenton 12-01 Consent for Treatment [id number] 0CD:127 Normal [facility] Physician Orderon 12-19-2021 Physician Order [id number]#1. 00CD:127 Normal [facility] XR Chest 2 Viewson XR [...] MD, V. Transcribed by: DELICIA Technologist: Normal [facility] eGFRon 12-19-2021 GFR/1.73 sq M.predicted among blacks MDRD (S/P/Bld) [Vol rate/Area] mL/min/{1.73_m2} Normal >=59 [facility] Comment on above: Order Comment: Order added by Discern Expert. Result Comment: eGFR is race adjusted. AA=. Performed By: #### 1 [id number], 2705493, 8785257 #### [facility] [address] [place] [address] GFR/1.73 sq M.predicted among non-blacks MDRD (S/P/Bld) [Vol rate/Area] mL/min/{1.73_m2} Normal >=59 [facility] Comment on above: Order Comment: Order added by Discern Expert. Result Comment: Expediter Service Order kary kidney disease could be indicated at eGFR's of less than 60 mL/min/1.73m2. Kidney failure is indicated at less than 15 mL/min/1.73m2. Performed By: #### 1 0468083, 5001221, 6579021 #### [facility] [address] [place] [address] Physician Orderon 12-06-2021 Physician Order [id number]#1. 00CD:127 Normal [facility] RAD - MISCon 11-04-2021 RAD - MISC [id number]#1. 00CD:127 Normal [facility] MR knee RT wo conon 08-30-20 21 [place] [address] MRI Report Signed Patient: Cony Matos MR#: [id number] [birth year] : 1960 Acct:[id number] Age/Sex: 60 / F ADM Date: 08/30/21 Loc: [facility] Room: Type: [facility] Attending Dr: Jose A Petersen MD Ordering [...] Jamarcus Prado M.D.08/30/2021 11:36 AM Dictation Location: [facility] Transcribed By: BIJAN 08/30/21 1136 Dictated By: Jamarcus Prado II, MD 08/30/21 1120 Signed By: 08/30/[address] [facility] XR knee RT 2Von 08-22-2021 XR knee RT 2V [facility] Main [place] [address] [place] [address] XRay Report Signed Patient: Cony Matos MR#: [id number] [birth year] : 1960 Acct:[id number] Age/Sex: 60 / F ADM Date: 08/22/21 Loc: [facility] Room: Type: [facility] Attending Dr: Jose A Petersen MD Ordering [...] Jamarcus Prado M.D.08/22/2021 1:26 PM Dictation Location: [place] [address] Transcribed By: BIJAN 08/22/21 1326 Dictated By: Jamarcus Prado II, MD 08/22/21 1325 Signed By: 08/22/[address] [facility] Cardiovascular Lab Reporton 05-17-2019 Cardiovascular Lab Report [facility] Patient Name: Stephen [facility] Ceasar MR #: [id number] Department of Physician: Rico James M.D. Division of Service Date: 05/17/2019 Cardiology Birthdate: 1960 Adult Cardiovascular Room #: [facility] [address] [facility] [place] [address] Cardiovascular Laboratory Report INDICATION: The patient is [...] signed informed consent. 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 The right neck area was prepped and draped in usual fashion. Using ultrasound guidance and micropuncture technique, the right internal jugular vein was accessed. A 6-Colombian x 11 cm sheath was placed. A 6-Colombian Irvin catheter was used for right heart catheterization with measurement of pressures and calculation of cardiac output using the estimated Sherman method. Irvin catheter was removed. Jamar's test was favorable on the right. Access in the right radial artery was obtained using micropuncture technique, a 5-Colombian 11 cm Hydrophilic sheath was advanced. Verapamil was given through the sheath and heparin was administered intravenously. Bilateral selective coronary angiography was then performed using a 6-Colombian JL5 diagnostic catheter. This catheter was removed. [...] P/Rico James M.D. Date Trans: 05/17/2019 01:54 P/jco [id number] cc: Paddy Stone M.D. [address] [id number] [facility] Vital Signs Date Time Vital Sign Value Performing Clinician Farrah arthur 08-22-2021 10:00-0400 Body height 167.64 cm Jose A Petersen Other [facility] Other 08-22-2021 10:00-0400 Body mass index (BMI) [Ratio] 25.01 kg/m2 Jose A Petersen Other [facility] Other 08-22-2021 10:00-0400 Body weight 70.31 kg Jose A Petersen Other [facility] Other Encounters Encounter Date Encounter Type Care Provider Facility Start: 04-02-2023 End: 04-03-[address] PADDY STONE . Facility:[facility] Start: 11-08-2022 Encounter for genera l adult medical examination without abnormal findings DR PADDY STONE . [facility] Start: 11-03-2022 End: 11-03-[address] [...] End: 10-03-2021 ambulatory Jose A Petersen Other [facility] Other Start: 10-03-2021 Telephone encounter Jose A Petersen [facility] Start: 08-22-2021 Office outpatient ne w 45 minutes Jose A Petersen [facility] Start: 05-17-2019 End: 05-18-2019 Patient encounter procedure PROVIDER UNKNOWN Facility:[facility] Payers Date Payer Category Payer Unknown [id number] 2.16.8 [id number] 1960 Unknown [id number] 2.16.84 [id number] 1960 Unknown [id number] 2.16.84 [id number] 1960 Unknown [id number] 2.16.84 [id number] 1960 Unknown [id number] 2.16.84 [id number] 1960 Unknown [id number] 2.16.84 [id number] 1960 Unknown [id number] 2.16.84 [id number] 1960 Unknown [id number] 2.16.84 [id number] 1960 Unknown [id number] 2.16.84 [id number] 1958 Self-pay 1958 Unknown [id number] Social History Date Type Detail Facility Sex Assigned At [facility] Other Evaluation note 08-22-2021 Note Date & [...] of pain and plan potential surgical treatment. [facility] Other Evaluation note Note Date & Type Note Facility Evaluation note No Information [facility] Other History general Narrative - Reported Note Date & Type Note Facility History general Narrative - Reported Type Surgical History C section x3 Surgical History hysterectomy Surgical History gall bladder Hospitalization History see above [facility] Other Summary Purpose Family History No Family [...] and content) DATE CREATED AUTHOR 07/12/2019 [facility] DATE CREATED AUTHOR AUTHOR'S ORGANIZ ATION 01/16/2022 [facility] DATE CREATED AUTHOR AUTHOR'S ORGANIZ ATION 02/21/2022 Luis Sharma [facility] DATE CREATED AUTHOR AUTHOR'S ORGANIZ ATION 10/03/2022 [facility] dical Specialist DATE CREATED AUTHOR AUTHOR'S ORGANIZ ATION 04/09/2023 [facility] REASON FOR VISIT (unrecogniz ed [...] BE BASED ON THE PRIMARY CLINICAL RECORDS. [facility] [employer] provides no warranty or guarantee of the accuracy or completeness of information in this document.
--- NOTE | 2024-04-20 08:08 | CT_ITS ---
The [address] [address] Patient Name: JOCELYNE MATOS MRN: [id number] date: 1960 Sex: F Assigned Patient Location: CT Current Patient Location: Accession/Order Number: [id number] Exam Date: 04/20/2024 08:00 Report Date: 04/21/2024 07:51 At the request of: PADDY HER Procedure: CT chest wo con EXAMINATION: CT chest wo con HISTORY: Pneumonia J18.9 COMPARISON: 12/15/2023 TECHNIQUE: Multi-planar CT images were created with IV contrast. Axial, Coronal, and Sagittal images. Dose reduction techniques were achieved by using automated exposure control and/or adjustment of mA and/or kV according to patient size and/or use of iterative reconstruction technique. FINDINGS: LUNGS: Near complete resolution of previously identified patchy parenchymal opacities with a few scattered linear opacities noted likely representing atelectasis and/or scar. No significant pulmonary nodule or mass. No bronchiectasis or peribronchial thickening PLEURA: No mass, effusion, or pneumothorax. VASCULATURE: No abnormality. ALEJANDRA: No mass or adenopathy. MEDIASTINUM: No mass or adenopathy. CARDIAC: No enlargement, pericardial thickening, or significant calcification. AORTA: No aneurysm or dissection. CHEST WALL: No mass or axillary adenopathy. BONES: No bone lesion or fracture. Moderate diffuse degenerative spondylosis LIMITED ABDOMEN: Surgical clips from cholecystectomy OTHER: Negative. CT/CT chest wo con IMPRESSION: Interval resolution of multifocal pneumonia Electronically authenticated by: WALDO BSUTAMANTE Date: 04/21/2024 07:51
== END 2024-04-20 07:52 | disposition home or self-care (01) ==
LOC: CT 07:51
PROVIDERS: PCP Family Medicine; Visit Provider Family Medicine
DX: J18.9 Pneumonia, unspecified organism (principal)
CPT/HCPCS: 71250

== ENCOUNTER 2024-07-27 07:37 | Outpatient (OUT) | payer OTHER, SELFPAY ==
--- NOTE | 2024-07-27 07:39 | MM_ITS ---
Patient Name: JOCELYNE MATOS MR#: [id number] : 1960 Exam Date: 07/27/2024 Ordering Doctor: DR Naif Stone . RADIOLOGY REPORT PROCEDURE: MM TOMOSYNTHESIS SCREENING BI COMPARISON: MM TOMOSYNTHESIS SCREENING BI, 06/17/2023. MG MAMM SCREEN 3D ZARI CAD, 06/16/2022. INDICATIONS: Screening Calculator Name NCI Breast Cancer Risk Assessment Tool 5 Year Breast Cancer Risk 1.60% Lifetime Breast Cancer Risk 7.30% Personal Breast Cancer No Personal Ovarian Cancer No Treatments Excision Family Cancers None LOCATION: [facility] BREAST COMPOSITION: There are scattered areas of fibroglandular density. FINDINGS: DIAGNOSTIC CATEGORY 1--NEGATIVE. NO CHANGE FROM COMPARISON ASSESSMENT. Scattered benign-appearing calcifications are present. RIGHT BREAST: No significant suspicious finding. LEFT BREAST: No significant suspicious finding. RECOMMENDATIONS: ROUTINE MAMMOGRAM AND CLINICAL EVALUATION IN 12 MONTHS. PLEASE NOTE: A NORMAL MAMMOGRAM DOES NOT EXCLUDE THE POSSIBILITY OF BREAST CANCER. A CLINICALLY SUSPICIOUS PALPABLE LUMP SHOULD BE BIOPSIED. Dictated by: Jw Gaona MD on 07/27/2024 at 12:33 Approved by: Jw Gaona MD on 07/27/2024 at 12:34
--- OUTSIDE RECORDS SUMMARY | 2024-07-27 07:39 | XMS_ITS | CCD ---
Author Organization [facility] Care Team Providers Care Data Sciences Director Name Role Phone UNKNOWN, PROVIDER Admitting Unavailable UNKNOWN, PROVIDER Attending Unavailable PADDY STONE Referring Unavailable SHIRLEYY, PADDY Primary Care Unavailable Jose A Petersen Unavailable SHIRLEYY ., DR THOMASON Primary Care Unavailable HOY ., DR THOMASON Consulting Unavailable HOY ., DR THOMASON Attending Unavailable HOY ., DR THOMASON Admitting Unavailable TORRANCE, DR WALDO Perkins Consulting Unavailable HOY ., [...] / oxyCODONE Drug Allergy 10-19-20 14 [facility] Repository (1 source) Sulfamethoxazole / Trimethoprim Drug Allergy 05-17-20 19 [facility] Repository (2 sources) Acetaminophen / oxyCODONE Drug Allergy Unknown [employer] Other (4 sources) Latex Propensity to adverse reactions Unknown [employer] [facility] [email or web address] Other (2 sources) Sulfacetamide / Sulfur Drug Allergy Unknown [employer] Other (2 sources) Sulfamethoxazole / Trimethoprim Drug Allergy Unknown [employer] Other (2 sources) Codeine Drug Allergy 10-12-20 14 [facility] Repository (2 sources) Latex Drug allergy (disorder) 10-25-20 14 [facility] Repository (1 source) Sulfamethoxazole / Trimethoprim Drug Allergy 01-08-20 17 [facility] Repository (1 source) Sulfonamides (Antibiotic) Drug allergy (disorder) 01-08-20 17 [facility] Repository Problems Active Problems Problem Classification [...] 04-02-2023 Creatinine [Mass/Vol] 0.80 mg/dL Normal 0.55-1.02 [facility] Comment on above: Performed By: #### L IPID, CMP, T7, TSH #### [facility] [address] [address] [address] Nga Ribeiro EGFR-AF KUWAITI >60 Normal >=60 [facility] Comment on above: Performed By: #### L IPID, CMP, T7, TSH #### [facility] [address] [address] [address] Nga Ribeiro EGFR-NON AF [place]I >60 Normal >=60 [facility] Comment on above: Performed By: #### L IPID, CMP, T7, TSH #### [facility] [address] ABD/PELV W CONon [...] WALDO BUSTAMANTE Date: 2023-04-02 15:30 Normal [facility] OCC BLD IMMUNO SCREENon OCCULT BLOOD Negative Normal NEGATIVE [facility] Comment on above: Performed By: #### O BSCRN #### [facility] [address] [place] [address] Dr. Nga Ribeiro INSULINon 10-31-2022 Insulin 8.8 uIU/mL Normal 2.6-24.9 [facility] Comment on above: Performed By: #### L IPID, CMP, T7, TSH #### [facility] [address] [place] [address] Dr. Nga Ribeiro CBC AUTO DIFFon 10-30-2022 BASO # 0.1 103/ul Normal 0.0-0.1 [facility] Comment on above: Performed By: #### L IPID, CMP, T7, TSH #### [facility] [address] [place] [address] Dr. Nga Ribeiro Basophils/100 WBC (Bld) 1.4 % Normal 0.2-2.0 [facility] Comment on above: Performed By: #### L IPID, CMP, T7, TSH #### [facility] [address] [place] [address] Dr. Nga Ribeiro EO # 0.3 103/ul Normal 0.0-0.7 [facility] Comment on above: Performed By: #### L IPID, CMP, T7, TSH #### [facility] [address] [place] [address] Dr. Nga Ribeiro Eosinophils/100 WBC (Bld) 6.3 % Normal 0.9-7.0 [facility] Comment on above: Performed By: #### L IPID, CMP, T7, TSH #### [facility] [address] [place] [address] Dr. Nga Ribeiro Erythrocyte distribution width (RBC) [Ratio] 12.7 % Normal 11.0-15.0 [facility] Comment on above: Performed By: #### L IPID, CMP, T7, TSH #### [facility] [address] [place] [address] Dr. Nga Ribeiro Hematocrit (Bld) [Volume fraction] 40.4 % Normal 36.0-48.0 [facility] Comment on above: Performed By: #### L IPID, CMP, T7, TSH #### [facility] [address] [place] [address] Dr. Nga Ribeiro Hemoglobin (Bld) [Mass/Vol] 13.8 g/dL Normal 12.0-16.0 [facility] Comment on above: Performed By: #### L IPID, CMP, T7, TSH #### [facility] [address] [place] [address] Dr. Nga Ribeiro IG # 0.01 10e3/ul Normal 0.00-0.03 [facility] Comment on above: Performed By: #### L IPID, CMP, T7, TSH #### [facility] [address] [place] [address] Dr. Nga Ribeiro IG % 0.2 % Normal 0.0-0.5 [facility] Comment on above: Performed By: #### L IPID, CMP, T7, TSH #### [facility] [address] [place] [address] Dr. Nga Ribeiro LYMPH # 1.9 103/ul Normal 1.2-3.8 [facility] Comment on above: Performed By: #### L IPID, CMP, T7, TSH #### [facility] [address] [place] [address] Dr. Nga Ribeiro Lymphocytes/100 WBC (Bld) 46.4 % Normal 20.5-60.0 [facility] Comment on above: Performed By: #### L IPID, CMP, T7, TSH #### [facility] [address] [place] [address] Dr. Nga Ribeiro MANUAL DIFF REQ NO Normal [facility] Comment on above: Performed By: #### L IPID, CMP, T7, TSH #### [facility] [address] [place] [address] Dr. Nga Ribeiro MCH (RBC) [Entitic mass] 30.6 pg Normal 26.7-34.0 [facility] Comment on above: Performed By: #### L IPID, CMP, T7, TSH #### [facility] [address] [place] [address] Dr. Nga Ribeiro MCHC (RBC) [Mass/Vol] 34.2 g/dL Normal 29.9-35.2 [facility] Comment on above: Performed By: #### L IPID, CMP, T7, TSH #### [facility] [address] [place] [address] Dr. Nga Ribeiro MCV (RBC) [Entitic vol] 89.6 fL Normal 81.0-99.0 [facility] Comment on above: Performed By: #### L IPID, CMP, T7, TSH #### [facility] [address] [place] [address] Dr. Nga Ribeiro MONO # 0.4 103/ul Normal 0.3-0.8 [facility] Comment on above: Performed By: #### L IPID, CMP, T7, TSH #### [facility] [address] [place] [address] Dr. Nga Ribeiro Monocytes/100 WBC (Bld) 9.1 % Normal 1.7-12.0 [facility] Comment on above: Performed By: #### L IPID, CMP, T7, TSH #### [facility] [address] [place] [address] Dr. Nga Ribeiro NEUT # 1.5 103/ul Normal 1.4-6.5 [facility] Comment on above: Performed By: #### L IPID, CMP, T7, TSH #### [facility] [address] [address] [address] Nga Ribeiro Neutrophils/100 WBC (Bld) 36.6 % Critically low 43.0-75.0 [facility] Comment on above: Performed By: #### L IPID, CMP, T7, TSH #### [facility] [address] [address] [address] Nga Ribeiro Platelet mean volume (Bld) [Entitic vol] 9.2 fL Critically low 9.5-13.5 [facility] Comment on above: Performed By: #### L IPID, CMP, T7, TSH #### [facility] [address] [place] [address] Dr. Nga Ribeiro PLT 194 103/ul Normal 150-450 [facility] Comment on above: Performed By: #### L IPID, CMP, T7, TSH #### [facility] [address] [place] [address] Dr. Nga Ribeiro RBC 4.51 106/ul Normal 4.20-5.40 [facility] Comment on above: Performed By: #### L IPID, CMP, T7, TSH #### [facility] [address] [place] [address] Dr. Nga Ribeiro WBC 4.2 103/ul Normal 4.0-11.0 [facility] Comment on above: Performed By: #### L IPID, CMP, T7, TSH #### [facility] [address] [place] [address] Dr. Nga Ribeiro FREE THYROXINE INDEX T7on FTI 2.66 Normal 1.30-4.50 [facility] Comment on above: Performed By: #### L IPID, CMP, T7, TSH #### [facility] [address] [place] [address] Dr. Nga Ribeiro T3U 36.0 % Normal 30.0-39.0 [facility] Comment on above: Performed By: #### L IPID, CMP, T7, TSH #### [facility] [address] [address] [address] Nga Ribeiro T4 [Mass/Vol] 7.40 ug/dL Normal 4.80-13.90 [facility] Comment on above: Performed By: #### L IPID, CMP, T7, TSH #### [facility] [address] [address] [address] Nga Ribeiro GLYCOHEMOGLOBIN A1Con 2021 ADA RECOMMENDATION SEE BELOW Normal [facility] Comment on above: Result Comment: ADA RECOMMENDED LIMIT 4.0 - 6.0 ADA THERAPEUTIC TARGET < 7.0 ACTION SUGGESTED > 7.0 Performed By: #### A 1C #### [facility] [address] [place] [address] Dr. Nga Ribeiro Glucose [Mass/Vol] 94 mg/dL Normal [facility] Comment on above: Performed By: #### A 1C #### [facility] [address] [address] [address] Nga Ribeiro HbA1c (Bld) [Mass fraction] 4.9 % Normal 4.5-6.2 [facility] Comment on above: Performed By: #### A 1C #### [facility] [address] [address] [address] Nga Ribeiro IRONon 10-30-2022 Iron [Mass/Vol] 119.0 ug/dL Normal 50.0-170.0 [facility] Comment on above: Performed By: #### I CHARISMA #### [facility] [address] [address] [address] Nga Ribeiro LIPID PROFILEon 10-30-2022 CHOL-HDL RATIO NORM SEE BELOW Normal [facility] Comment on above: Result Comment: 3.3 - 4.4 LOW RISK 4.4 - 7.1 AVERAGE RISK 7.1 - 11.0 MODERATE RISK >11.0 HIGH RISK Performed By: #### L IPID, CMP, T7, TSH #### [facility] [address] [address] [address] Nga Ribeiro Cholesterol [Mass/Vol] 201 mg/dL Critically high <=200 [facility] Comment on above: Performed By: #### L IPID, CMP, T7, TSH #### [facility] [address] [address] [address] Nga Ribeiro Cholesterol in HDL [Mass/Vol] 78 mg/dL Critically high 40-60 [facility] Comment on above: Performed By: #### L IPID, CMP, T7, TSH #### [facility] [address] [address] [address] Nga Ribeiro Cholesterol in LDL [Mass/Vol] 108.8 mg/dL Normal [facility] Comment on above: Performed By: #### L IPID, CMP, T7, TSH #### [facility] [address] [address] [address] Nga Ribeiro Cholesterol.total/Ch olesterol in HDL [Mass ratio] 2.6 {ratio} Normal [facility] Comment on above: Performed By: #### L IPID, CMP, T7, TSH #### [facility] [address] [address] [address] Nga Ribeiro HDL NORMAL > or = 60 mg/dl - LO W CARDIOVASCULAR RISK <40 mg/dl - HIGH CARDIOVASCULAR RISK Normal [facility] Comment on above: Performed By: #### L IPID, CMP, T7, TSH #### [facility] [address] [address] [address] Nga Ribeiro LDL CALC NORMAL SEE BELOW Normal [facility] Comment on above: Result Comment: <100 mg/dl OPTIMAL 100 - 129 mg/dl NEAR OR ABOVE OPTIMAL 130 - 159 mg/dl BORDERLINE HIGH 160 - 189 mg/dl HIGH >190 mg/dl VERY HIGH Performed By: #### L IPID, CMP, T7, TSH #### [facility] [address] [address] [address] Nga Ribeiro Triglyceride [Mass/Vol] 71 mg/dL Normal <=150 [facility] Comment on above: Performed By: #### L IPID, CMP, T7, TSH #### [facility] [address] [address] [address] Nga Ribeiro VLDL CALC 14.2 mg/dL Normal [facility] Comment on above: Performed By: #### L IPID, CMP, T7, TSH #### [facility] [address] [address] [address] Nga Ribeiro PROF 14(COMP METB)on 022 Albumin [Mass/Vol] 3.8 g/dL Normal 3.4-5.0 [facility] Comment on above: Performed By: #### L IPID, CMP, T7, TSH #### [facility] [address] [place] [address] Dr. Nga Ribeiro Albumin/Globulin [Mass ratio] 1.1 {ratio} Normal [facility] Comment on above: Performed By: #### L IPID, CMP, T7, TSH #### [facility] [address] [place] [address] Dr. Nga Ribeiro ALP [Catalytic activity/Vol] 91 U/L Normal 46-116 [facility] Comment on above: Performed By: #### L IPID, CMP, T7, TSH #### [facility] [address] [address] [address] Nga Ribeiro ALT [Catalytic activity/Vol] 19 U/L Normal 14-59 [facility] Comment on above: Performed By: #### L IPID, CMP, T7, TSH #### [facility] [address] [address] [address] Nga Ribeiro Anion gap [Moles/Vol] 9.2 mmol/L Normal [facility] Comment on above: Performed By: #### L IPID, CMP, T7, TSH #### [facility] [address] [address] [address] Nga Ribeiro AST [Catalytic activity/Vol] 18 U/L Normal 15-37 [facility] Comment on above: Performed By: #### L IPID, CMP, T7, TSH #### [facility] [address] [address] [address] Nga Ribeiro Bilirubin [Mass/Vol] 0.5 mg/dL Normal 0.2-1.0 [facility] Comment on above: Performed By: #### L IPID, CMP, T7, TSH #### [facility] [address] [address] [address] Nga Ribeiro Calcium [Mass/Vol] 9.5 mg/dL Normal 8.5-10.1 [facility] Comment on above: Performed By: #### L IPID, CMP, T7, TSH #### [facility] [address] [place] [address] Dr. Nga iRbeiro Chloride [Moles/Vol] 105 mmol/L Normal 98-107 [facility] Comment on above: Performed By: #### L IPID, CMP, T7, TSH #### [facility] [address] [place] [address] Dr. Nga Ribeiro CO2 [Moles/Vol] 29.5 mmol/L Normal 21.0-32.0 [facility] Comment on above: Performed By: #### L IPID, CMP, T7, TSH #### [facility] [address] [place] [address] Dr. Nga Ribeiro Creatinine [Mass/Vol] 0.68 mg/dL Normal 0.55-1.02 [facility] Comment on above: Performed By: #### L IPID, CMP, T7, TSH #### [facility] [address] [place] [address] Dr. Nga Ribeiro EGFR-AF [place]I >60 Normal >=60 [facility] Comment on above: Performed By: #### L IPID, CMP, T7, TSH #### [facility] [address] [place] [address] Dr. Nga Ribeiro EGFR-NON AF [place] >60 Normal >=60 [facility] Comment on above: Performed By: #### L IPID, CMP, T7, TSH #### [facility] [address] [place] [address] Dr. Nga Ribeiro Globulin (S) [Mass/Vol] 3.6 g/dL Normal [facility] Comment on above: Performed By: #### L IPID, CMP, T7, TSH #### [facility] [address] [place] [address] Dr. Nga Ribeiro Glucose [Mass/Vol] 100 mg/dL Normal 74-106 [facility] Comment on above: Performed By: #### L IPID, CMP, T7, TSH #### [facility] [address] [address] [address] Nga Ribeiro Potassium [Moles/Vol] 4.7 mmol/L Normal 3.5-5.1 [facility] Comment on above: Performed By: #### L IPID, CMP, T7, TSH #### [facility] [address] [address] [address] Nga Ribeiro Protein [Mass/Vol] 7.4 g/dL Normal 6.4-8.2 [facility] Comment on above: Performed By: #### L IPID, CMP, T7, TSH #### [facility] [address] [place] [address] Dr. Nga Ribeiro Sodium [Moles/Vol] 139 mmol/L Normal 136-145 [facility] Comment on above: Performed By: #### L IPID, CMP, T7, TSH #### [facility] [address] [address] [address] Nga Ribeiro Urea nitrogen [Mass/Vol] 19.0 mg/dL Critically high 7.0-18.0 [facility] Comment on above: Performed By: #### L IPID, CMP, T7, TSH #### [facility] [address] [place] [address] Dr. Nga Ribeiro Urea nitrogen/Creatinine [Mass ratio] 27.9 mg/mg Normal [facility] Comment on above: Performed By: #### L IPID, CMP, T7, TSH #### [facility] [address] [address] [address] Nga Ribeiro TSHon 10-30-2022 TSH 0.871 uIU/mL Normal 0.358-3.740 [facility] Comment on above: Performed By: #### L IPID, CMP, T7, TSH #### [facility] [address] [place] [address] Dr. Nga Ribeiro Covid-19 PCR ([facility])on 10-01 SARS-CoV-2 (COVID-19) RNA VALENTINA+probe Ql (Unsp spec) Not detected Normal NOT DETECTED [facility] Comment on above: Result Comment: When [...] for this test is supported by the [place] of Health and Human Service's declaration that [...] used). Performed By: #### C VDTBH #### [facility] [address] [place] [address] Dr. Nga Ribeiro INFLUENZA A AND B AGon 10-22 INFLUANEGH SEE BELOW Normal [facility] Comment on above: Result Comment: Nega tive for Flu A protein angiten. Infection due to Flu A cannot be ruled out. Flu A angiten in the sample may be below the detection limit of the test. Performed By: #### L IPID, CMP, T7, TSH #### [facility] [address] [place] [address] Dr. Nga Ribeiro INFLUBNEG SEE BELOW Normal [facility] Comment on above: Result Comment: Nega tive for Flu B protein antigen. Infection due to Flu B cannot be ruled out. Flu B antigen in the sample may be below the detection limit of the test. Performed By: #### L IPID, CMP, T7, TSH #### [facility] [address] [place] [address] Dr. Nga Ribeiro INFLUENZA A AG Negative Normal NEGATIVE SEE COMMENT [facility] Comment on above: Performed By: #### L IPID, CMP, T7, TSH #### [facility] [address] [place], [place] [address] Dr. Nga Ribeiro INFLUENZA B AG Negative Normal NEGATIVE SEE COMMENT [facility] Comment on above: Performed By: #### L IPID, CMP, T7, TSH #### [facility] [address] [place], [place] [address] Dr. Nga Ribeiro INTERNAL CONTROLS Within Normal Limits Normal Wi thin Normal Limits [facility] Comment on above: Performed By: #### L IPID, CMP, T7, TSH #### [facility] [address] [place], [place] [address] Dr. Nga Ribeiro MRI Shoulder w/o Lefton [...] by Maulik Stewart on 10/02/2022 1335 Normal [facility] [employer] MG MAMM SCREEN 3D ZARI CADon 06-16-2022 MG MAMM SCREEN 3D ZARI CAD Patient: CONY MATOS. Exam Date: 06/16/2022 : 1960 Gender:F Ordering : DR ANDREW ORTEGA . Admission #: [id number] Family : Order #: [id number] CLICK HERE TO VIEW EXAM RADIOLOGY REPORT [...] Treatments Excision Family Cancers None LOCATION: [facility] BREAST COMPOSITION: Scattered areas fibroglandular density. [...] Owen Nixon M.D. on 06/16/2022 at 13:28 [facility] PAP ACOG PANEL 2: 30 to 65on 05-30-2022 . . Normal [facility] Comment on above: Result Comment: Perf ormed at: WB Performed By: #### L IPID, CMP, T7, TSH #### [facility] [address] [address] [address] Nga Ribeiro Age Gdln ACOG Testing 30-65 Normal [facility] Comment on above: Performed By: #### L IPID, CMP, T7, TSH #### [facility] [address] [address] [address] Nga Ribeiro DIAGNOSIS: Comment Normal [facility] Comment on above: Result Comment: UNSA TISFACTORY FOR EVALUATION. Performed at: WB Performed By: #### L IPID, CMP, T7, TSH #### [facility] [address] [address] [address] Nga Ribeiro HPV Aptima Negative Normal Negative [facility] Comment on above: Result Comment: This nucleic acid amplification test detects fourteen high-risk HPV types (16,18,31,33,35,39,45,51,52,56,58,59,66,68) without differentiation. Performed at: =G Performed By: #### L IPID, CMP, T7, TSH #### [facility] [address] [address] [address] Nga Ribeiro Methodology: Comment Normal [facility] Comment on above: Result Comment: This liquid based ThinPrep(R) pap test was screened with the use of an image guided system. Performed at: WB Performed By: #### L IPID, CMP, T7, TSH #### [facility] [address] [address] [address] Nga Ribeiro Note: Comment Normal [facility] Comment on above: Result Comment: The [...] #### L IPID, CMP, T7, TSH #### [facility] [address] [address] [address] Nga Ribeiro Performed by: Comment Normal [facility] Comment on above: Result Comment: Kolton Carpio, Air Tool Operator (ASCP) Performed at: WB Performed By: #### L IPID, CMP, T7, TSH #### [facility] [address] [address] [address] Nga Ribeiro QC reviewed by: Comment Normal [facility] Comment on above: Result Comment: Adoer Sloan, Supervisory Air Tool Operator (ASCP) Performed at: WB Performed By: #### L IPID, CMP, T7, TSH #### [facility] [address] [address] [address] Nga Ribeiro Recommendation: Comment Normal [facility] Comment on above: Result Comment: Sugg est follow up as clinically appropriate. Performed at: WB Performed By: #### L IPID, CMP, T7, TSH #### [facility] [address] [address] [address] Nga Ribeiro Specimen adequacy: Comment Normal [facility] Comment on above: Result Comment: Spec imen processed and examined but unsatisfactory for evaluation of epithelial abnormality because of insufficient cellularity. Performed at: WB Performed By: #### L IPID, CMP, T7, TSH #### [facility] [address] [place] [address] Dr. Nga Ribeiro Coding Summary.on 12-30-2021 Coding Summary. CD:[id number] Gh 0bWw+PGhlYWQ+NB9RDDSwA 94uqLQhrG2VN4zAAQ8VKGZ FPSTMEO7YRP6oyOF6JPvrW 2VybiAv SjqksLDpLY45XYn3LBD5jD siOZpkgJ8wcOJcN1f2OmJy BW18zT18UNtrKFBtUqN1Zn ZpbjsgbWFy S8haQrPhpUYfLvn+PHRhYm xlIHdpZHRoPScxMDAlJyBz iOspGO0mQt2gEKOlJGNuuE xhcHNlOiBj g0fiQKIgLXvrTB7ucXifK3 KupXH7UODdc4u8Oq60xUE+ IBPvEAN7sMnfFRvih891Wq Hwx5vrPMU8 rVCnACybNIA8B87nj2D4ZY ZdEICxWDY7eIH8uO1ekZru jnswA9PveKMlIjH2MWC7vI AmbS8dgEbg cewpxK2kXzt+M06WSS0LMA YHDT8HYei5Z7EqDsqogQT+ PG76YAUxWH08uKEpzOVvy2 rudAr8NhOc WNVoQJW2wGgiHPlvr3CmPW MaK35qnNEut3S7KQYkiFbf tWBaCkSshNF7eR6sKXhbat uqa0dtzsic Icizf0gtjv08vK99I88iFX cjPLRlFBP1PDUuZHZkzBkx is0txF3iVk9+UIfgs6rna8 yjyMe1HzPq RZYtwiVslGohUCQ7r6OaIs 84T6JxzUcuu8McJtr5fo07 cUCtu6Y6uAB3BShcSGHloR 1lKZdvMcA8 ZMBzMgVphJ50cAAvMNxkZc 0jcZvyxJwuDB1hZLJacnqk FJJhhQ1iFKQibACpdBqvPU 4wNTBpbjtm j458TyVkPAR1AYHvbJZjT2 KgjR2sIbXoCWUpLMBhA0Zv zXQoFUyjG184MXakSqI0LN PgcsRiG2Dx HNKybShkStX2s9E9Ul5St8 GboucfTAQ2PIvhUOBuAhGj AbJbGkZ4Z4TgUfu4OAWnaG igSZ3wQ0Ap PADubltdqyqalOB5DXTbWV RjqK02hKNrILfxUy7do1P9 r296NDJsKUJhvJ94Zi8dtY ogMTBwdCBU zI0habxsv7ltzqbwSoOuNP YwBRa7KAj5RCZsoVooVnZw SOK5RpP9HHI8bCGfmF5qrG meiwwttA9j Oyc+H59muL8cYQK4WNV4ew auCDNazsWpWZ49PK89W9Sx PjwvdGFibGU+PGRpdiBzdH sjYI2jDoGb t7ipl2UfRIooB1EqLRIpRS pvIej0JUZcWKC9qDM2gF7h ACPsEOqfb3N7fNW1B5Mmlw Lrmx5yb8ob ZQXnEYktS50biTLut6A6EE PsrMN9VWQfuHrjQtFshU56 Oyc+BSPgaBosx2EzVrpzd1 crs7gngHa5 LuWoHVNxmsJvdZcuUUA4e6 RsOo84Y90nCTfaBWYwRAZb IWJvTYLrqToaxm6pvQ3tNv 8+PGNvbCB3 qFI6xX7cOSXbQfB2ROqgF6 69BhSqtTZwPyxyg1tlb5xw jTp3NeDkMIHvmwHcsGinZQ A5t6XpZv96 P89wRYmjDWHuCPMeHAUkPN SolDrovt0ngC4vHw7+PC9j g3dzok98dJ97yGK+PHRkIH K4xVbrAFsy GRRskT1rRSeoPfG5PANjYu QboA15aTFgRKfiCd6zgIbt hBcpKB5oNFEtraxvg935Bt Ehk7twZKQj wGKoGQgcOTN8W85dh7S8NF UzLHMeNAY8fVG9rW3paYoj bjogbGVmdDsgdmVydGljYW ncRObbQ603 IHRvcDsnPlBhdGllbnQgTm ZuDDt1K6HeLdw2YTXpeYiw WI4jjGHtEUwhPa6rjTzfrC jvOM6cZSLf mxmaf180PzSus6zmQMIpqI JxZXlmVOO1T11jh2Y7MKIs NKPqOOO1xDS2tH2obEbbvl ogbGVmdDsg kbEyjQtqINdtAUpyC483FF RvcDsnPkJpcnRoIERhdGU6 BA41JB53qZOuj0P3nNX9S5 BhZGRpbmct jtmrvRI5LRRuOKBzwL46Kg 9slGtwBj0rAXJhVMJ4ZYGb iRUkH7IquR8bTfEpFGImZP FuG5OirHTr DPcxJ540JAspZsA3YEYrzr OjA3XbPEIwvWvaPtN4q9G4 Gv0PE7X3SW90KT12vXDmm2 H9tIX7Q8Yx JNSefurdzsbqeLW6BEIoWZ JewZ13Sk0pzKhgHw2qPEUe YIC0ZRVkxIMjF8GwpL1yGh AjMDAwMDAw E5AnzTKcPSguZ982WHiaIe V1HKLtznLeR9JjIPYisMft MpJ2e2D2Ng3SDRb2GF41TF 08sQLxs7N4 fES0Q8BwPDAprchwmngwaR J7BEEzEDZqgQ35Ms2vgGmm Ji6uFZHcJII2WEImaPWbD1 ExoJ9xRdFd SVFxSIJrN6LxgPEsFXuzZ2 63NWcwWeY8JAYhecRqP5Yy QGPojYezGwP6l6V9Kk1GQZ KpXU63RUF4 eHX0HK73GY35H7HfEakmhU FibGU+PHRhYmxlIHdpZHRo OXofHZGaLmCvyCbrFV5qZq 9yZGVyLWNv pDiukMGcGtRjl8thSMAdSP qxRS7fcBatJ5QtrZG7WUJf w2b5Zz71C87fE6HxfKG+PG YypFC9nBI1 yJ5dMaCiQjS6UUgbB174Aj PszIPqMlayz0nzi8pewEv5 AoV9AATghjFomEfgGNS2g8 DjQa09E88u IHdpZHRoPSIxNSUiIHZhbG adwu5coE9xZo6+PGNvbCB3 gWE2pA8uEvUxGcN5WDijU8 49InRvcCIv Kdzxf5clm0hfhVi1DbFjDI ZawfGesGehQDZ0n3CrYb33 L8VorMsbl1IlKfi7wf73fQ Ptf1O2tCN1 V8OnTBEnkbsfhVVhsSotRD 3hICEsdrbwGMTdpT8rYIOv O1z6PjNoLxJ0IIetE7Ywck R7OPJibEEj WGguYOA3O32ns3P3KHSwBY YmBIU4bVE4dQ2wcGokhnbc bGVmdDsgdmVydGljYWwtYW xlE984QOYk jNqyHDYnxW2tBGInkVYghA vsGD2qNKHjitkeQh2PZDMN UiwgQkVUVFkgTDwvdGQ+PH ZjPEX0lCdk ANbcJAMelA1wLCIcQ2n3Fi LsZnD5QBexY4BaIFMtfsio Ns75kK7hNrEqIuB2MChfJ9 LwycE6BIUu tGAxJHeqPDF4A57xy2V0ZP AwYPZnADI0dFJ6bV6cdLmr bjogbGVmdDsgdmVydGljYW ncKIshW015 CWNnrCjmUtMlZuG2FyB7Wb D0W7QxAuj7OSBuwYcjXP0c wHGhDUerQl9hmGuxkCrtJR 4wNTBpbjtw XTBzdD4lAMVpxMGhmOltLR 2wRUHhmolxf882NuQhLXX4 DQZxgMAjH2DnlU5xXcGaIC HdGXBjQ6Ih fQRmPLykK832QCozYaQ8RE GhpmBgH2ZtGTGsxKlzHwX2 r3B4Ko35XBUBXSMgmidwiO Q+PHRkIHN0 pOayPWiyRYMkiE3xSPUbT3 t4JxKkBgN6DEycP2SzYPRs szvqIe35qF0cFeJfHuC3MU vuF6QbvsX0 SQKugIBeBSxhTNO3M26iv5 Q5MMQeNTKePWB0cNS6gH7r bGlnbjogbGVmdDsgdmVydG ljYWwtYWxp N268OFQzuIdjQoHpmBCvHT wvdGQ+BRTpZHH8uZbbYXnw QLTikK8cPRQmK9p1AzQyDu L4XRvpH3Ve UISiwkcsQy32fV2mSdUfDz T3PRvcP0QqsmR9OYZoeJAy BGqoFBI5T00hv1R4STEeJB LxQEX2yUH9 hZ2zpItlgxtcdTOvlJqvtc YpjNofBYwlXYptF855QNJg bTpoWf05sMTvwDbmmxN4Z4 RkPjwvdHI+ KN28IJCnDD71yJCctCQce0 fksYv1TaWdQMZiLYS7bAlu WEfcy1HuISSjZ09wlZVyp9 N0IGBmnUhz aFMsFwDuiQE0dR1tPLbdmw xwv4hxnmanIszhw1bheg47 oJ33D65vHVjhBOJbLZKjLZ UiIHZhbGln tv4yhN5dQu7+JSKagOP6yR S4uK6pWnPdHhW3TAecK359 LkOpzQEwTsklf9gti0niwN m4OePyYIAb ztQtgQshKST5j1OmYf36C4 9sIHdpZHRoPSIyMCUiIHZh yGsjgb4lxG7zDf5+PC9jb2 syoa79uF70 dHI+EYNpZHQ5hGghKAyjDQ DilI7eUYrnTbN7RFBcQcMi sW87eTKmCXzcUm2fdLehiW wpLZ0gQJBr xiyad377LbQok4kjRZUjhA KbAWmlTTE3R18uq5I6ZLZl ZGUuOTP2wYJ4sV1cxVlcsq ogbGVmdDsg snWemWxjKVgmAClkF818IJ BecVxcFoLjyHZdL1tbgwVK ND0tLnognPI+VAVtBAQ2dH xlPSdwYWRk oK7fJTNqX3b1SkYtMyL3AX lfE8OyqfQ8MIRnhAQfPZWl gYKNgL5gqpyqj9ynaipqMf AwMDAwMDt0 DCf7CJOnvCojBdNtECD9Kh Z1ROA5bIJbjG7xtEfxwwkk dY6rBpk+RklOOjwvdGQ+PH XiPGS3xJhk VOioPJRsxU7nUGHaF0b6Rz RzNlB8QHtzJ3JgdnK4KIXz xTMoJSRtdZRVdN6fqummo1 xvcjogIzAw TIEdUEu7CBx9WYYxlSoaMb GeNTN8YjE6NXC0gAOolW4x iVtntmwsbC6qTww+TVJOOj wvdGQ+PHRk RBQ0iBbmSDrgOXQfiX4hPY OyP2i9UtYrXmC3MDkeZ4Dq hoO3YTQtkEEdDWRolZEMtP 8fnfods5lr zbgwPuGdLCXgEUm6DOx5HB HogKvlGiQmGGT1JaS0ZOZ9 gDOqbW6dwNffnnnakA4rXt c+MTD3ABD4 QS10YG13U5XmFpocgYAjqE U+PHRhYmxlIHdpZHRoPScx UNBhYiPidQauLS7aXk8wVG VyLWNvbGxh cHNl (more content not included)... [facility] Coding Summary.on 12-27-2021 Coding Summary. CD:[id number]:[id number] Gh 0bWw+PGhlYWQ+DW1MCYEgX 21nfGTrgE4WK2qZBJ2CWBS ROXTJDN2ZXH1cpGU4EBbkM 2VybiAv MtqhzNFfTB10IXp8KKH4jQ xpVKnqbF9hpQYeS5y5SkMt BA04nF61LIltGROxNfX3To ZpbjsgbWFy C1slOkBrtERsNkq+PHRhYm xlIHdpZHRoPScxMDAlJyBz vGljJB5oSp0qQWSwAOHhhH xhcHNlOiBj n2ouNUDqBSrlNF0ouPrhI9 BgoPN0NOAwh6t5Rn77oUF+ VZFyXTM5cLulYBbkw295Ad Wou9dgMOR8 eMLlIUppWAB6P27ap0P2KV XsUTDnXDK4rLQ0pW9svTuw gxeiD9IbvRTqBnF8VYM5cH EeqT0qlOdd wlwqnD0mQex+C21GBR8HYB JSKW6BBtk2Z8ZjRejppCM+ EA46HXUtAN32nXSnbSIbl1 dnfBd5FhBq GOOuCRZ2gHfoTKomt4JmAL DeG52zbIUyu6S2YQZedKay xTMrTrTboTZ4qC2bSRtsjs ntv0muzljo Duqwb2zhpu74aO95S50qVH kxPXPgWUS0MPEwNIXmeLka hh5enR8iRf4+ELspk8bje0 vbfQh6EpVp JPEuciOrrTspFIM6w4AsSk 38N1ZzjZufm6AiEip3ju69 sYYmv3P2bVD6GJpsOPJyiF 8aSEarYsN6 KTHcHrGqmW50vKLsAEomJl 1vzHmvqAkaKI2mZXXvndqe DKIkzB7dTVMdtLJtlSugOO 4wNTBpbjtm l103ItFuQJZ3HCIfbQQgH6 IfbN5iDzAiPVZyXPZaR7Ym bZCbYAdaH154HUtxVwY5YC TkwuRdW3Rf XMHbmTebMdW1x3E4Zp0Fu3 ByokywEBU7TQhnSSRlZvO7 CbJeGuC8I3DhLey5TAFspL ghHO9sF2Ev GQQwuhxqpvvilYX5FQHmJY UsiC68sWWvHCmyOn9vb6T5 z270GPSkXTKhfG11Gq5hlC ogMTBwdCBU jP7nquvev7smwalrPdRdUD DcDGa6TJq6YOOldVoyQdUz QUS3FzM0RRA5yFDfsS6mrX clriqehH9r Oyc+G41jcM6vEQW5UZR0nj nhVMJybyNsRF93KT61V9Wa PjwvdGFibGU+PGRpdiBzdH ivEO6rYfMc f9zwu1IrHDchV1RmPWOzHD xdUpp0IFFsSBZ4hAP5uW0u UMKhTGkgt1C9wOY7Q4Tvnm Mmnn6jg9yp LQDmZOkjJ05elQNrk3U8LS SbgPU8ITCccQgyIfWftA06 Oyc+OKRgyPoho9MzAvkob3 msd0nheAn9 KxYxMPOviiAbcWzdRWE8c2 PsUd91V47oUMwmFNDrYRDp EIOvAXCcgFqdqk6ptB2xGb 8+PGNvbCB3 cVL5uS1xITZdQuX5DDhlM6 40UrEjbOBxZxwlr2bsy3av fHr9WpBlXYExvkOklPrfWR X6a6GoKs45 O42rKHrsCVAdLYEtDKPmSS HnjCbrtq3ssN7jCe4+PC9j l5wkdz85jO05wMW+PHRkIH S1iHgkWHsd WIBvtE2pGIftCxS8LQJvFm IadZ29dJXrZCrkSh3ttPpf hPntEP7lHOWtgigep255Zq Mxp2eiRGOv oVJkSHdxACZ5S99mz3V6CP DtSSWuYQU7aTU3nH8ygCwq bjogbGVmdDsgdmVydGljYW lxBWszN222 IHRvcDsnPlBhdGllbnQgTm ZmKGg9X5VvBcq5BRIhvQrn KH4trHWyJUgrWk8fpQdjyW sqNM9yOXWy szluu057MvCsd5nyIHNokT YgNEtpQRE9P97od5X0LDLw VQNrFPS4jNP6fJ2ulQawcv ogbGVmdDsg lrYsjMfzKSqlYSevI031JB RvcDsnPkJpcnRoIERhdGU6 BT96DL76sDCay6M4sFB0N8 BhZGRpbmct aggxxMF3DHBxVXXngO88Rw 3yxOuzOo6lTWWqLEI5TPKc sDNmT1UsoU1gAqSxFGZgIL UpR4UgrFIy AZcjI885TYmcPkV0BPLbnr RmN3GgVOPnmNgfWlX3j4O8 Ip4RE2B7YI49NS99mPDpy8 Q8rUI7W6Aw ELEmuxqtqkthmBD2FITpVN RjcB12Vm9bkKjqYu0dMPDd ZQG3QOBnaNBmX0ExeX7gKp AjMDAwMDAw C4EapDExANakO031MIwkNd R2OBIfzkBfO0StHRJooBoe GnV5r3Q3Zb8JUYw9CJ36SV 12xMKcq7T3 jTK0C4QuYHZrbulxmykmhI G6VLUpBSEenE62Nx9emVcs Jj9xRDAoFPK6WIHhzWEeE6 WklR8lDvLn IXMqEUXiM4NztKVtTKapM4 55NCndKkK7NGLktvUdY2En OHKneWekLjL1t6A3St2NLV EsRU67ORG0 zTN2GP38RS99G1UiPxuohV FibGU+PHRhYmxlIHdpZHRo DQybEEMuIcUcgDjwWW6jGv 9yZGVyLWNv iOckwQLmOaRrr3hcOVRrXE wcOS9emGwdS7RynMG1BAMe f5w4Kp49N63oT1LhmNZ+PG AojLR3hJY9 xP8mObBwDxP6HZymE184Do EouLAdIzfzh7mme3sdoSd4 EuU8DRQnftEguCarNTU7k7 VmGx76U36f IHdpZHRoPSIxNSUiIHZhbG qamx4jyE7zWj8+PGNvbCB3 pWS6jY4eQqXsHcC1INsgK2 49InRvcCIv Tcwlm2rkv1wxgOa6UwLeNP YollVlkRgyLGV4w0RvHa40 S8HofPrsl4HpBpz1ug33aH Com9T5aAV4 R7IdIVTdgfrgpQXfgLsiYH 2oHFLviathUOBygL6aMZDg T2c4KgDpCeN1OUlkT8Tbrv M8NLVssXKs YCyeCIN3A74dq4Q0OCDoIZ VqREH4bTO1jW1lsZjxstln bGVmdDsgdmVydGljYWwtYW qsS500LKFu zIynEKIbjE6oWGLdlBNxvO vvIL0fHPLvokduGi3JENRB UiwgQkVUVFkgTDwvdGQ+PH RoQSE9aEea RFfvASMehF2bBVIkL3n6La YrPzW2NIrnB5MvBMTlylpk Hi13uS8zTbFtSlQ4CLhcP0 IyayV5EYOk kGCcLEgxUDX5H07ps7P3EL MmRUHxXOV2sDM8vE0ivUhs bjogbGVmdDsgdmVydGljYW rzJJspL359 MLPlpOvjVxEnImJ3QmY2Jr H7O5ViEuc0DRNrtBduEP1x sWSnASqrJu2zbXcsgWjcDC 4wNTBpbjtw XAQrbM0yIPOaeBQusQnoFI 6vUIEgrchsm597EuJwHYM7 QWCcxKXuY0KzbF6qYtHnAL JgNWHvK2Mn bCYoJXjcT881SSzjFmO7JJ RmsuBnL0BsWAPynDlwFrA3 n7R0Wa24VQLOASGkcyuxgM Q+PHRkIHN0 xHmhKUjcTGDwgK4xZPPyZ9 r5UxAzGsN5HFlnW9VkBZGn bswtGo40fV9aXaRbTfP4DT udT8IjdlA4 WQZuzOMzQGcuKVG1L71us2 J0OXYgWODfRGG6zMS2yQ1l bGlnbjogbGVmdDsgdmVydG ljYWwtYWxp B334BDEpsTemXhFtoBIfMP wvdGQ+NLTbPBM6zPomYLzc BRWpdB9pGXGiP2v4BySiUg K6NOfeN3Vh LTAncvlpMy84aV7qVqNhCc A5KMnmY1CmyyY9EBYxcQVn XPzqFWY8U04wh8W4JRGtUS JyEPT8rTQ8 kG1qmAihruaaqCKjqRmkpx SymZulYKmoLCmvH510KNYg vYpvQe81lJIhsQynkyJ2J6 RkPjwvdHI+ GA10SIGdTG09yZDwsZAmu1 xssXu9OzKxMHOrGEU2aQdw FCtyb2QhQVLqQ80etAHce1 H3PNWzlMby jTDbNlAtkWI7fB0aKPppwq ahq6clgjbpExmth0rdlw20 cC60L88pGNccBAMbFYRwKU UiIHZhbGln zz9baY4uMm2+WLKeoUC0nD H8zT9mNoFuBhQ8LFazC269 RiNflSNjKzqcp2alv8efoP t3YjKbOAEg scLgfKhmXUM8i5YfDn24Y1 9sIHdpZHRoPSIyMCUiIHZh lAmrti3etR5mJa3+PC9jb2 xgak14qI01 dHI+QYEoQIQ5pUcqCHhzPP QffE3eANrbDwD6FUPqMiSc zX21sNWbSZcqLh1uyIbmzI kuBC4dMNYt jjiah266RiQup1djUPWdcX MnXMhsZII8N08gq9U7YZPj WCMeSKJ4cOS2oC8wpLgqtx ogbGVmdDsg rdPgbNdvEZocIHtdX156YQ IpaHslDtVzuBLuQ3egmiDB LM2eYenltHF+KUFdLAK4xN xlPSdwYWRk tE2fCHWqU4s5XcCnVfE1NV jdF4LkbaB0AFYmxPTlTYTt yZAUtR2nwpwfw1mcsqvfIc AwMDAwMDt0 IPi8MXFsqOykHdPgABG6Hs Y2QBS2cQTfaD7frDmmuqpo dQ2lLtf+RklOOjwvdGQ+PH ZzQUP8wDob FCquSAYsoT1dKZNyJ7x6Sv ZjZwA2ITpbF2ZvrvA3TPCy gCOcPVAyiHMMiM9rhehoq0 xvcjogIzAw HJQwXTk0QAi8DYZhfQizGi SiKLO6EsI5ODV5xJPhyO8c oXzaatufuB6eSot+TVJOOj wvdGQ+PHRk CWR0cSqjQUkoVKQxqN4kVD YfB6g8AzVjXfD2VIpcU8Tt jcJ5IIKrtKWxLAPizWMQiI 4rcosqu1da yuffFwQfIVBjFQe2QSu4YZ YxmPpnCkQeKUX9XfH2EPW6 mIIcvW3xnTfzsuvxwH1bGz c+PXM6XXW5 BL96XB66H0PjUlaxhZAmiD U+PHRhYmxlIHdpZHRoPScx KMMsQyDlxIbpWO6jEt4sMO VyLWNvbGxh cHNl (more content not included)... Normal [facility] Consent for Treatmenton 12-01 Consent for Treatment [id number] 0CD:127 Normal [facility] BMPon 12-19-2021 Anion gap [Moles/Vol] 14 mmol/L Normal -16 [facility] Comment on above: Performed By: #### 1 [id number], [id number], [id number] #### [facility] [address] [place] [address] Calcium [Mass/Vol] 9.6 mg/dL Normal 8.9-11.1 [facility] Comment on above: Performed By: #### 1 [id number], 1374769, [id number] #### [facility] [address] [place] [address] Chloride [Moles/Vol] 105 mmol/L Normal 101-111 [facility] Comment on above: Performed By: #### 1 4706942, 7267963, [id number] #### [facility] [address] [place] [address] CO2 [Moles/Vol] 27 mmol/L Normal 21-31 [facility] Comment on above: Performed By: #### 1 [id number], 3110080, 1401107 #### [facility] [address] [place] [address] Creatinine [Mass/Vol] 0.9 mg/dL Normal 0.5-1.3 [facility] Comment on above: Performed By: #### 1 [id number], 8989449, 1102392 #### [facility] [address] [place] [address] Glucose [Mass/Vol] 95 mg/dL Normal 55-199 [facility] Comment on above: Result Comment: If t his glucose result represents a fasting glucose, interpretation should refer to the following reference range: 55-99 mg/dL Performed By: #### 1 [id number], 6182028, [id number] #### [facility] [address] [place] [address] Potassium [Moles/Vol] 4.3 mmol/L Normal 3.5-5.3 [facility] Comment on above: Performed By: #### 1 [id number], 8549487, 6781951 #### [facility] [address] [place] [address] Sodium [Moles/Vol] 142 mmol/L Normal 135-145 [facility] Comment on above: Performed By: #### 1 2606576, 1513925, 6888300 #### [facility] [address] [place] [address] Urea nitrogen [Mass/Vol] 23 mg/dL High 5-21 [facility] Comment on above: Performed By: #### 1 [id number], 5387666, 8498393 #### [facility] [address] [place] [address] Urea nitrogen/Creatinine [Mass ratio] 26 No Units High 10-20 [facility] Comment on above: Performed By: #### 1 [id number], 1288737, 0930032 #### [facility] [address] [place] [address] CBC w/Indiceson 12-19-2021 Erythrocyte distribution width (RBC) [Ratio] 13.3 % Normal 10.9-14.2 [facility] Comment on above: Performed By: #### 1 [id number], 2675069, 9487241 #### [facility] [address] [place] [address] Hematocrit (Bld) [Volume fraction] 38.6 % Normal 34.0-46.0 [facility] Comment on above: Performed By: #### 1 [id number], 5726976, 4244839 #### [facility] [address] [place] [address] Hemoglobin (Bld) [Mass/Vol] 13.6 g/dL Normal 12.0-16.0 [facility] Comment on above: Performed By: #### 1 5772529, 7955434, 9529111 #### [facility] [address] [place] [address] MCH (RBC) [Entitic mass] 31.1 pg Normal 27.0-34.0 [facility] Comment on above: Performed By: #### 1 0784607, 5161881, 0789814 #### [facility] [address] [place] [address] MCHC (RBC) [Mass/Vol] 35.2 g/dL Normal 31.4-36.0 [facility] Comment on above: Performed By: #### 1 0045033, 4783660, 4065936 #### [facility] [address] [place] [address] MCV (RBC) [Entitic vol] 88.2 fL Normal 80.0-100.0 [facility] Comment on above: Performed By: #### 1 2588424, 7942871, 6669271 #### [facility] [address] [place] [address] Platelet mean volume (Bld) [Entitic vol] 8.2 fL Normal 6.4-10.8 [facility] Comment on above: Performed By: #### 1 2732015, 9967881, 6555511 #### [facility] [address] [place] [address] Platelets (Bld) [#/Vol] 231.0 E9/L Normal 150.0-500.0 [facility] Comment on above: Performed By: #### 1 5178919, 7350728, 5668101 #### [facility] [address] [place] [address] RBC (Bld) [#/Vol] 4.4 E12/L Normal 4.3-5.9 [facility] Comment on above: Performed By: #### 1 4732254, 4922341, 2138632 #### [facility] [address] [place] [address] WBC corrected for nucl RBC Auto (Bld) [#/Vol] 4.5 E9/L Normal 4.0-11.0 [facility] Comment on above: Performed By: #### 1 2081809, 1843328, 0519950 #### [facility] [address] [place] [address] Consent for Treatmenton 12-01 Consent for Treatment [id number] 0CD:127 Normal [facility] Physician Orderon 12-19-2021 Physician Order [id number]#1. 00CD:127 Normal [facility] XR Chest 2 Viewson 2 XR Chest 2 Views Exam Date/Time: 12/19/2021 [...] V. Transcribed by: DELICIA Technologist: RH Normal [facility] eGFRon 12-19-2021 GFR/1.73 sq M.predicted among blacks MDRD (S/P/Bld) [Vol rate/Area] mL/min/{1.73_m2} Normal >=59 [facility] Comment on above: Order Comment: Order added by Discern Expert. Result Comment: eGFR is race adjusted. AA=. Performed By: #### 1 [id number], 8716860, 0125643 #### [facility] [address] [place] [address] GFR/1.73 sq M.predicted among non-blacks MDRD (S/P/Bld) [Vol rate/Area] mL/min/{1.73_m2} Normal >=59 [facility] Comment on above: Order Comment: Order added by Discern Expert. Result Comment: Activities Therapist kary kidney disease could be indicated at eGFR's of less than 60 mL/min/1.73m2. Kidney failure is indicated at less than 15 mL/min/1.73m2. Performed By: #### 1 4556406, 5442605, 4885982 #### [facility] [address] [place] [address] Physician Orderon 12-06-2021 Physician Order [id number]#1. 00CD:127 Normal [facility] RAD - MISCon 11-04-2021 RAD - MISC [id number]#1. 00CD:127 Normal [facility] MR knee RT wo conon 08-30-20 21 MR knee RT wo con [facility] Main [address] [address] MRI Report Signed Patient: Cony Matos MR#: [id number] [birth year] : 1960 Acct:[id number] Age/Sex: 60 / F ADM Date: 08/30/21 Loc: [facility] Room: Type: [facility] Attending Dr: Jose A Petersen MD [...] Jamarcus Prado M.D.08/30/2021 11:36 AM Dictation Location: [facility] Transcribed By: BIJAN 08/30/21 1136 Dictated By: Jamarcus Prado II, MD 08/30/21 1120 Signed By: 08/30/21 1136 [facility] XR knee RT 2Von 08-22-2021 XR knee RT 2V [facility] Main [place] [address] [place] [address] XRay Report Signed Patient: Cony Matos MR#: [id number] [birth year] : 1960 Acct:[id number] Age/Sex: 60 / F ADM Date: 08/22/21 Loc: [facility] Room: Type: [facility] Attending Dr: Jose A Petersen MD [...] Jamarcus Prado M.D.08/22/2021 1:26 PM Dictation Location: [place] [address] Transcribed By: BIJAN 08/22/21 1326 Dictated By: Jamarcus Prado II, MD 08/22/21 1325 Signed By: 08/22/21 1326 [facility] Cardiovascular Lab Reporton 05-17-2019 Cardiovascular Lab Report [facility] Patient Name: Shawna [facility] MR #: [id number] Department of Physician: Rico James M.D. Division of Service Date: 05/17/2019 Cardiology Birthdate: 1960 Adult Cardiovascular Room #: [facility] [address] [place] [address] Cardiovascular Laboratory Report INDICATION: The patient is [...] signed informed consent. She was brought to mushroom laborer in a fasting state. The right neck area was prepped and draped in usual fashion. Using ultrasound guidance and micropuncture technique, the right internal jugular vein was accessed. A 6-Finnish x 11 cm sheath was placed. A 6-Finnish Irvin catheter was used for right heart catheterization with measurement of pressures and calculation of cardiac output using the estimated Sherman method. Irvin catheter was removed. Jamar's test was favorable on the right. Access in the right radial artery was obtained using micropuncture technique, a 5-Finnish 11 cm Hydrophilic sheath was advanced. Verapamil was given through the sheath and heparin was administered intravenously. Bilateral selective coronary angiography was then performed using a 6-Finnish JL5 diagnostic catheter. This catheter was removed. [...] P/Rico James M.D. Date Trans: 05/17/2019 01:54 P/mmo [id number] cc: Paddy Stone M.D. [address] [address] [facility] Vital Signs Date Time Vital Sign Value Performing Clinician Farrah arthur 08-22-2021 10:00-0400 Body height 167.64 cm Jose A Petersen Other [facility] Other 08-22-2021 10:00-0400 Body mass index (BMI) [Ratio] 25.01 kg/m2 Jose A Petersen Other [facility] Other 08-22-2021 10:00-0400 Body weight 70.31 kg Jose A Petersen Other [facility] Other Encounters Encounter Date Encounter Type Care Provider Facility Start: 04-02-2023 End: 04-03-[address] PADDY STONE . Facility:[facility] Start: 11-08-2022 Encounter for genera l adult medical examination without abnormal findings DR PADDY STONE . [facility] Start: 11-03-2022 End: 11-03-[address] PADDY STONE . Facility:[facility] Start: 11-03-2022 End: 11-03-2022 Encounter for general adult medical examination without abnormal findings DR PADDY STONE . Facility:[facility] Start: 10-30-2022 End: 10-31-[address] PADDY STONE . Facility:[facility] Start: 10-22-2022 End: 10-22-[address] PADDY STOEN . Facility:[facility] Start: 10-20-[address] PADDY STONE . Facili ty:[facility] Start: 07-23-2022 ambulatory ADRIANA LITTLE Facility: [facility] Start: 06-16-2022 End: 06-17-[address] PADDY STONE . Facility:[facility] Start: 05-27-2022 End: 05-27-[address] ANDREW ORTEGA . Facility:[facility] Start: 10-03-2021 End: 10-03-2021 ambulatory Jose A Petersen Other [facility] Other Start: 10-03-2021 Telephone encounter [facility] Start: 08-22-2021 Office outpatient ne w 45 minutes Jose A Petersen [facility] Start: 05-17-2019 End: 05-18-2019 Patient encounter procedure PROVIDER UNKNOWN Facility:[facility] Payers Date Payer Category Payer Unknown [id number] 2.16.8 [id number] 1960 Unknown [id number] 2.16.84 [id number] 1960 Unknown [id number] 2.16.84 [id number] 1960 Unknown [id number] 2.16.84 [id number] 1960 Unknown [id number] 2.16.84 [id number] 1960 Unknown [id number] 2.16.84 [id number] 1960 Unknown [id number] 2.16.84 [id number] 1960 Unknown [id number] 2.16.84 [id number] 1960 Unknown [id number] 2.16.84 [id number] 1958 Self-pay 1958 Unknown [id number] Social History Date Type Detail Facility Sex Assigned At [facility] Other Evaluation note 08-22-2021 Note Date & [...] of pain and plan potential surgical treatment. [facility] Other Evaluation note Note Date & Type Note Facility Evaluation note No Information [facility] Other History general Narrative - Reported Note Date & Type Note Facility History general Narrative - Reported Type Surgical History C section x3 Surgical History hysterectomy Surgical History gall bladder Hospitalization History see above [facility] Other Summary Purpose Family History No Family [...] DATE CREATED AUTHOR 07/12/2019 [facility] DATE CREATED AUTHOR AUTHOR'S ORGANIZ ATION 01/16/2022 [facility] DATE CREATED AUTHOR AUTHOR'S ORGANIZ ATION 02/21/2022 [facility] DATE CREATED AUTHOR AUTHOR'S ORGANIZ ATION 10/03/2022 [facility] dical Specialist DATE CREATED AUTHOR AUTHOR'S [...] BE BASED ON THE PRIMARY CLINICAL RECORDS. [employer] provides no warranty or guarantee of the accuracy or completeness of information in this document.
== END 2024-07-27 07:38 | disposition home or self-care (01) ==
LOC: MAMMO 07:37
PROVIDERS: PCP Family Medicine; Visit Provider Family Medicine
DX: Z12.31 Encounter for screening mammogram for malignant neoplasm of breast (principal)
CPT/HCPCS: 77063; 77067

== ENCOUNTER 2024-08-13 06:34 | Outpatient (OUT) | payer OTHER, SELFPAY ==
--- OUTSIDE RECORDS SUMMARY | 2024-08-13 06:37 | XMS_ITS | CCD ---
Author Organization [facility] Care Team Providers Care Tinsmith Helper Name Role Phone UNKNOWN, PROVIDER Admitting Unavailable UNKNOWN, PROVIDER Attending Unavailable PADDY STONE Referring Unavailable SHIRLEYY, PADDY Primary Care Unavailable Jose A Petersen Unavailable SHIRLEYY ., DR THOMASON Primary Care Unavailable HOY ., DR THOMASON Consulting Unavailable HOY ., DR THOMASON Attending Unavailable HOY ., DR THOMASON Admitting Unavailable BURT, DR WALDO Perkins Consulting Unavailable HOY ., [...] / oxyCODONE Drug Allergy 10-19-20 14 [facility] Repository (1 source) Sulfamethoxazole / Trimethoprim Drug Allergy 05-17-20 19 [facility] Repository (2 sources) Acetaminophen / oxyCODONE Drug Allergy Unknown [facility] Other (4 sources) Latex Propensity to adverse reactions Unknown [facility] Other (2 sources) Sulfacetamide / Sulfur Drug Allergy Unknown [facility] Other (2 sources) Sulfamethoxazole / Trimethoprim Drug Allergy Unknown [facility] Other (2 sources) Codeine Drug Allergy 10-12-20 14 [facility] Repository (2 sources) Latex Drug allergy (disorder) 10-25-20 14 [facility] Repository (1 source) Sulfamethoxazole / Trimethoprim Drug Allergy 01-08-20 17 [facility] Repository (1 source) Sulfonamides (Antibiotic) Drug allergy (disorder) 01-08-20 17 [facility] Repository Problems Active Problems Problem [...] 04-02-2023 Creatinine [Mass/Vol] 0.80 mg/dL Normal 0.55-1.02 [facility] Comment on above: Performed By: #### L IPID, CMP, T7, TSH #### [facility] [address] [address] [address] Nga Ribeiro EGFR-AF FILIPINO >60 Normal >=60 [facility] Comment on above: Performed By: #### L IPID, CMP, T7, TSH #### [facility] [address] [address] [address] Nga Ribeiro EGFR-NON AF FILIPINO >60 Normal >=60 [facility] Comment on above: Performed By: #### L IPID, CMP, T7, TSH #### [facility] [address] ABD/PELV W CONon [...] WALDO BUSTAMANTE Date: 2023-04-02 15:30 Normal [facility] OCC BLD IMMUNO SCREENon OCCULT BLOOD Negative Normal NEGATIVE [facility] Comment on above: Performed By: #### O BSCRN #### [facility] [address] [place] [address] Dr. Nga Ribeiro INSULINon 10-31-2022 Insulin 8.8 uIU/mL Normal 2.6-24.9 [facility] Comment on above: Performed By: #### L IPID, CMP, T7, TSH #### [facility] [address] [place] [address] Dr. Nga Ribeiro CBC AUTO DIFFon 10-30-2022 BASO # 0.1 103/ul Normal 0.0-0.1 [facility] Comment on above: Performed By: #### L IPID, CMP, T7, TSH #### [facility] [address] [place] [address] Dr. Nga Ribeiro Basophils/100 WBC (Bld) 1.4 % Normal 0.2-2.0 [facility] Comment on above: Performed By: #### L IPID, CMP, T7, TSH #### [facility] [address] [place] [address] Dr. Nga Ribeiro EO # 0.3 103/ul Normal 0.0-0.7 [facility] Comment on above: Performed By: #### L IPID, CMP, T7, TSH #### [facility] [address] [place] [address] Dr. Nga Ribeiro Eosinophils/100 WBC (Bld) 6.3 % Normal 0.9-7.0 [facility] Comment on above: Performed By: #### L IPID, CMP, T7, TSH #### [facility] [address] [place] [address] Dr. Nga Ribeiro Erythrocyte distribution width (RBC) [Ratio] 12.7 % Normal 11.0-15.0 [facility] Comment on above: Performed By: #### L IPID, CMP, T7, TSH #### [facility] [address] [place] [address] Dr. Nga Ribeiro Hematocrit (Bld) [Volume fraction] 40.4 % Normal 36.0-48.0 [facility] Comment on above: Performed By: #### L IPID, CMP, T7, TSH #### [facility] [address] [place] [address] Dr. Nga Ribeiro Hemoglobin (Bld) [Mass/Vol] 13.8 g/dL Normal 12.0-16.0 [facility] Comment on above: Performed By: #### L IPID, CMP, T7, TSH #### [facility] [address] [place] [address] Dr. Nga Ribeiro IG # 0.01 10e3/ul Normal 0.00-0.03 [facility] Comment on above: Performed By: #### L IPID, CMP, T7, TSH #### [facility] [address] [place] [address] Dr. Nga Ribeiro IG % 0.2 % Normal 0.0-0.5 [facility] Comment on above: Performed By: #### L IPID, CMP, T7, TSH #### [facility] [address] [place] [address] Dr. Nga Ribeiro LYMPH # 1.9 103/ul Normal 1.2-3.8 [facility] Comment on above: Performed By: #### L IPID, CMP, T7, TSH #### [facility] [address] [place] [address] Dr. Nga Ribeiro Lymphocytes/100 WBC (Bld) 46.4 % Normal 20.5-60.0 [facility] Comment on above: Performed By: #### L IPID, CMP, T7, TSH #### [facility] [address] [place] [address] Dr. Nga Ribeiro MANUAL DIFF REQ NO Normal [facility] Comment on above: Performed By: #### L IPID, CMP, T7, TSH #### [facility] [address] [place] [address] Dr. Nga Ribeiro MCH (RBC) [Entitic mass] 30.6 pg Normal 26.7-34.0 [facility] Comment on above: Performed By: #### L IPID, CMP, T7, TSH #### [facility] [address] [place] [address] Dr. Nga Ribeiro MCHC (RBC) [Mass/Vol] 34.2 g/dL Normal 29.9-35.2 [facility] Comment on above: Performed By: #### L IPID, CMP, T7, TSH #### [facility] [address] [place] [address] Dr. Nga Ribeiro MCV (RBC) [Entitic vol] 89.6 fL Normal 81.0-99.0 [facility] Comment on above: Performed By: #### L IPID, CMP, T7, TSH #### [facility] [address] [place] [address] Dr. Nga iRbeiro MONO # 0.4 103/ul Normal 0.3-0.8 [facility] Comment on above: Performed By: #### L IPID, CMP, T7, TSH #### [facility] [address] [place] [address] Dr. Nga Ribeiro Monocytes/100 WBC (Bld) 9.1 % Normal 1.7-12.0 [facility] Comment on above: Performed By: #### L IPID, CMP, T7, TSH #### [facility] [address] [place] [address] Dr. Nga Ribeiro NEUT # 1.5 103/ul Normal 1.4-6.5 [facility] Comment on above: Performed By: #### L IPID, CMP, T7, TSH #### [facility] [address] [address] [address] Nga Ribeiro Neutrophils/100 WBC (Bld) 36.6 % Critically low 43.0-75.0 [facility] Comment on above: Performed By: #### L IPID, CMP, T7, TSH #### [facility] [address] [address] [address] Nga Ribeiro Platelet mean volume (Bld) [Entitic vol] 9.2 fL Critically low 9.5-13.5 [facility] Comment on above: Performed By: #### L IPID, CMP, T7, TSH #### [facility] [address] [place] [address] Dr. Nga Ribeiro PLT 194 103/ul Normal 150-450 [facility] Comment on above: Performed By: #### L IPID, CMP, T7, TSH #### [facility] [address] [place] [address] Dr. Nga Ribeiro RBC 4.51 106/ul Normal 4.20-5.40 [facility] Comment on above: Performed By: #### L IPID, CMP, T7, TSH #### [facility] [address] [place] [address] Dr. Nga Ribeiro WBC 4.2 103/ul Normal 4.0-11.0 [facility] Comment on above: Performed By: #### L IPID, CMP, T7, TSH #### [facility] [address] [place] [address] Dr. Nga Ribeiro FREE THYROXINE INDEX T7on FTI 2.66 Normal 1.30-4.50 [facility] Comment on above: Performed By: #### L IPID, CMP, T7, TSH #### [facility] [address] [place] [address] Dr. Nga Ribeiro T3U 36.0 % Normal 30.0-39.0 [facility] Comment on above: Performed By: #### L IPID, CMP, T7, TSH #### [facility] [address] [address] [address] Nga Ribeiro T4 [Mass/Vol] 7.40 ug/dL Normal 4.80-13.90 [facility] Comment on above: Performed By: #### L IPID, CMP, T7, TSH #### [facility] [address] [address] [address] Nga Ribeiro GLYCOHEMOGLOBIN A1Con 2021 ADA RECOMMENDATION SEE BELOW Normal [facility] Comment on above: Result Comment: ADA RECOMMENDED LIMIT 4.0 - 6.0 ADA THERAPEUTIC TARGET < 7.0 ACTION SUGGESTED > 7.0 Performed By: #### A 1C #### [facility] [address] [place] [address] Dr. Nga Ribeiro Glucose [Mass/Vol] 94 mg/dL Normal The [facility] Comment on above: Performed By: #### A 1C #### [facility] [address] [address] [address] Nga Ribeiro HbA1c (Bld) [Mass fraction] 4.9 % Normal 4.5-6.2 [facility] Comment on above: Performed By: #### A 1C #### [facility] [address] [address] [address] Nga Ribeiro IRONon 10-30-2022 Iron [Mass/Vol] 119.0 ug/dL Normal 50.0-170.0 [facility] Comment on above: Performed By: #### I CHARISMA #### [facility] [address] [address] [address] Nga Ribeiro LIPID PROFILEon 10-30-2022 CHOL-HDL RATIO NORM SEE BELOW Normal [facility] Comment on above: Result Comment: 3.3 - 4.4 LOW RISK 4.4 - 7.1 AVERAGE RISK 7.1 - 11.0 MODERATE RISK >11.0 HIGH RISK Performed By: #### L IPID, CMP, T7, TSH #### [facility] [address] [address] [address] Nga Ribeiro Cholesterol [Mass/Vol] 201 mg/dL Critically high <=200 [facility] Comment on above: Performed By: #### L IPID, CMP, T7, TSH #### [facility] [address] [address] [address] Nga Ribeiro Cholesterol in HDL [Mass/Vol] 78 mg/dL Critically high 40-60 [facility] Comment on above: Performed By: #### L IPID, CMP, T7, TSH #### [facility] [address] [address] [address] Nga Ribeiro Cholesterol in LDL [Mass/Vol] 108.8 mg/dL Normal [facility] Comment on above: Performed By: #### L IPID, CMP, T7, TSH #### [facility] [address] [address] [address] Nga Ribeiro Cholesterol.total/Ch olesterol in HDL [Mass ratio] 2.6 {ratio} Normal [facility] Comment on above: Performed By: #### L IPID, CMP, T7, TSH #### [facility] [address] [address] [address] Nga Ribeiro HDL NORMAL > or = 60 mg/dl - LO W CARDIOVASCULAR RISK <40 mg/dl - HIGH CARDIOVASCULAR RISK Normal [facility] Comment on above: Performed By: #### L IPID, CMP, T7, TSH #### [facility] [address] [address] [address] Nga Ribeiro LDL CALC NORMAL SEE BELOW Normal [facility] Comment on above: Result Comment: <100 mg/dl OPTIMAL 100 - 129 mg/dl NEAR OR ABOVE OPTIMAL 130 - 159 mg/dl BORDERLINE HIGH 160 - 189 mg/dl HIGH >190 mg/dl VERY HIGH Performed By: #### L IPID, CMP, T7, TSH #### [facility] [address] [address] [address] Nga Ribeiro Triglyceride [Mass/Vol] 71 mg/dL Normal <=150 [facility] Comment on above: Performed By: #### L IPID, CMP, T7, TSH #### [facility] [address] [address] [address] Nga Ribeiro VLDL CALC 14.2 mg/dL Normal [facility] Comment on above: Performed By: #### L IPID, CMP, T7, TSH #### [facility] [address] [address] [address] Nga Ribeiro PROF 14(COMP METB)on 022 Albumin [Mass/Vol] 3.8 g/dL Normal 3.4-5.0 [facility] Comment on above: Performed By: #### L IPID, CMP, T7, TSH #### [facility] [address] [place] [address] Dr. Nga Ribeiro Albumin/Globulin [Mass ratio] 1.1 {ratio} Normal [facility] Comment on above: Performed By: #### L IPID, CMP, T7, TSH #### [facility] [address] [place] [address] Dr. Nga Ribeiro ALP [Catalytic activity/Vol] 91 U/L Normal 46-116 [facility] Comment on above: Performed By: #### L IPID, CMP, T7, TSH #### [facility] [address] [address] [address] Nga Ribeiro ALT [Catalytic activity/Vol] 19 U/L Normal 14-59 [facility] Comment on above: Performed By: #### L IPID, CMP, T7, TSH #### [facility] [address] [address] [address] Nga Ribeiro Anion gap [Moles/Vol] 9.2 mmol/L Normal [facility] Comment on above: Performed By: #### L IPID, CMP, T7, TSH #### [facility] [address] [address] [address] Nga Ribeiro AST [Catalytic activity/Vol] 18 U/L Normal 15-37 [facility] Comment on above: Performed By: #### L IPID, CMP, T7, TSH #### [facility] [address] [address] [address] Nga Ribeiro Bilirubin [Mass/Vol] 0.5 mg/dL Normal 0.2-1.0 [facility] Comment on above: Performed By: #### L IPID, CMP, T7, TSH #### [facility] [address] [address] [address] Nga Ribeiro Calcium [Mass/Vol] 9.5 mg/dL Normal 8.5-10.1 [facility] Comment on above: Performed By: #### L IPID, CMP, T7, TSH #### [facility] [address] [place] [address] Dr. Nga Ribeiro Chloride [Moles/Vol] 105 mmol/L Normal 98-107 [facility] Comment on above: Performed By: #### L IPID, CMP, T7, TSH #### [facility] [address] [place] [address] Dr. Nga Ribeiro CO2 [Moles/Vol] 29.5 mmol/L Normal 21.0-32.0 [facility] Comment on above: Performed By: #### L IPID, CMP, T7, TSH #### [facility] [address] [place] [address] Dr. Nga Ribeiro Creatinine [Mass/Vol] 0.68 mg/dL Normal 0.55-1.02 [facility] Comment on above: Performed By: #### L IPID, CMP, T7, TSH #### [facility] [address] [place] [address] Dr. Nga Ribeiro EGFR-AF FILIPINO >60 Normal >=60 [facility] Comment on above: Performed By: #### L IPID, CMP, T7, TSH #### [facility] [address] [place] [address] Dr. Nga Ribeiro EGFR-NON AF FILIPINO >60 Normal >=60 [facility] Comment on above: Performed By: #### L IPID, CMP, T7, TSH #### [facility] [address] [place] [address] Dr. Nga Ribeiro Globulin (S) [Mass/Vol] 3.6 g/dL Normal [facility] Comment on above: Performed By: #### L IPID, CMP, T7, TSH #### [facility] [address] [place] [address] Dr. Nga Ribeiro Glucose [Mass/Vol] 100 mg/dL Normal 74-106 [facility] Comment on above: Performed By: #### L IPID, CMP, T7, TSH #### [facility] [address] [address] [address] Nga Ribeiro Potassium [Moles/Vol] 4.7 mmol/L Normal 3.5-5.1 [facility] Comment on above: Performed By: #### L IPID, CMP, T7, TSH #### [facility] [address] [address] [address] Nga Ribeiro Protein [Mass/Vol] 7.4 g/dL Normal 6.4-8.2 [facility] Comment on above: Performed By: #### L IPID, CMP, T7, TSH #### [facility] [address] [place] [address] Dr. Nga Ribeiro Sodium [Moles/Vol] 139 mmol/L Normal 136-145 [facility] Comment on above: Performed By: #### L IPID, CMP, T7, TSH #### [facility] [address] [address] [address] Nga Ribeiro Urea nitrogen [Mass/Vol] 19.0 mg/dL Critically high 7.0-18.0 [facility] Comment on above: Performed By: #### L IPID, CMP, T7, TSH #### [facility] [address] [place] [address] Dr. Nag Ribeiro Urea nitrogen/Creatinine [Mass ratio] 27.9 mg/mg Normal [facility] Comment on above: Performed By: #### L IPID, CMP, T7, TSH #### [facility] [address] [address] [address] Nga Ribeiro TSHon 10-30-2022 TSH 0.871 uIU/mL Normal 0.358-3.740 [facility] Comment on above: Performed By: #### L IPID, CMP, T7, TSH #### [facility] [address] [place] [address] Dr. Nga Ribeiro [facility]01 SARS-CoV-2 (COVID-19) RNA VALENTINA+probe Ql (Unsp spec) Not detected Normal NOT DETECTED [facility] Comment on above: Result [...] for this test is supported by the [place] of Health and Human Service's declaration that [...] used). Performed By: #### C VDTBH #### [facility] [address] [place] [address] Dr. Nga Ribeiro INFLUENZA A AND B AGon 10-22 INFLUANEGH SEE BELOW Normal [facility] Comment on above: Result Comment: Nega tive for Flu A protein angiten. Infection due to Flu A cannot be ruled out. Flu A angiten in the sample may be below the detection limit of the test. Performed By: #### L IPID, CMP, T7, TSH #### [facility] [address] [place] [address] Dr. Nga Ribeiro INFLUBNEG SEE BELOW Normal [facility] Comment on above: Result Comment: Nega tive for Flu B protein antigen. Infection due to Flu B cannot be ruled out. Flu B antigen in the sample may be below the detection limit of the test. Performed By: #### L IPID, CMP, T7, TSH #### [facility] [address] [place] [address] Dr. Nga Ribeiro INFLUENZA A AG Negative Normal NEGATIVE SEE COMMENT [facility] Comment on above: Performed By: #### L IPID, CMP, T7, TSH #### [facility] [address] [place], [place] [address] Dr. Nga Ribeiro INFLUENZA B AG Negative Normal NEGATIVE SEE COMMENT [facility] Comment on above: Performed By: #### L IPID, CMP, T7, TSH #### [facility] [address] [place], [place] [address] Dr. Nga Ribeiro INTERNAL CONTROLS Within Normal Limits Normal Wi thin Normal Limits [facility] Comment on above: Performed By: #### L IPID, CMP, T7, TSH #### [facility] [address] [place], [place] [address] Dr. Nga Ribeiro MRI Shoulder w/o Lefton [...] by Maulik Stewart on 10/02/2022 1335 Normal [facility] Felt Cementer MG MAMM SCREEN 3D ZARI CADon 06-16-2022 MG MAMM SCREEN 3D ZARI CAD Patient: CONY MATOS. Exam Date: 06/16/2022 : 1960 Gender:F Ordering : DR ANDREW ORTEGA . Admission #: [id number] Family : Order #: [id number] CLICK HERE TO VIEW EXAM RADIOLOGY REPORT [...] Treatments Excision Family Cancers None LOCATION: [facility] BREAST COMPOSITION: Scattered areas fibroglandular density. FINDINGS: [...] Owen Nixon M.D. on 06/16/2022 at 13:28 [facility] PAP ACOG PANEL 2: 30 to 65on 05-30-2022 . . Normal [facility] Comment on above: Result Comment: Perf ormed at: WB Performed By: #### L IPID, CMP, T7, TSH #### [facility] [address] [address] [address] Nga Ribeiro Age Gdln ACOG Testing 30-65 Normal [facility] Comment on above: Performed By: #### L IPID, CMP, T7, TSH #### [facility] [address] [address] [address] Nga Ribeiro DIAGNOSIS: Comment Normal [facility] Comment on above: Result Comment: UNSA TISFACTORY FOR EVALUATION. Performed at: WB Performed By: #### L IPID, CMP, T7, TSH #### [facility] [address] [address] [address] Nga Ribeiro HPV Aptima Negative Normal Negative [facility] Comment on above: Result Comment: This nucleic acid amplification test detects fourteen high-risk HPV types (16,18,31,33,35,39,45,51,52,56,58,59,66,68) without differentiation. Performed at: =G Performed By: #### L IPID, CMP, T7, TSH #### [facility] [address] [address] [address] Nga Ribeiro Methodology: Comment Normal [facility] Comment on above: Result Comment: This liquid based ThinPrep(R) pap test was screened with the use of an image guided system. Performed at: WB Performed By: #### L IPID, CMP, T7, TSH #### [facility] [address] [address] [address] Nga Ribeiro Note: Comment Normal [facility] Comment on above: Result Comment: The [...] #### L IPID, CMP, T7, TSH #### [facility] [address] [address] [address] Nga Ribeiro Performed by: Comment Normal [facility] Comment on above: Result Comment: Kolton Carpio, Grease Man (ASCP) Performed at: WB Performed By: #### L IPID, CMP, T7, TSH #### [facility] [address] [address] [address] Nga Ribeiro QC reviewed by: Comment Normal [facility] Comment on above: Result Comment: Adore Sloan, Supervisory Grease Man (ASCP) Performed at: WB Performed By: #### L IPID, CMP, T7, TSH #### [facility] [address] [address] [address] Nga Ribeiro Recommendation: Comment Normal [facility] Comment on above: Result Comment: Sugg est follow up as clinically appropriate. Performed at: WB Performed By: #### L IPID, CMP, T7, TSH #### [facility] [address] [address] [address] Nga Ribeiro Specimen adequacy: Comment Normal [facility] Comment on above: Result Comment: Spec imen processed and examined but unsatisfactory for evaluation of epithelial abnormality because of insufficient cellularity. Performed at: WB Performed By: #### L IPID, CMP, T7, TSH #### [facility] [address] [place] [address] Dr. Nga Ribeiro Coding Summary.on 12-30-2021 Coding Summary. CD:[id number] Gh 0bWw+PGhlYWQ+TW4ILGFlK 72ziBHhmK7JS8zPTK9CFJC MQPAMZC5JWL1ucAZ6WDwkN 2VybiAv GtzzdJKgWC58TXf8BDZ8vU ysHXcnrH2ibGDfU6q7JpUo HR92nM29BUabXUUaGnL7Tk ZpbjsgbWFy N1zbAtXtePYhCzd+PHRhYm xlIHdpZHRoPScxMDAlJyBz bSicYY7jBd3xAFDeEMDdmQ xhcHNlOiBj e3nzGBYeHUmlQT9nfKluN7 MlzSB1IPEfz8b5Qz65jIJ+ OUUvRUJ2kZggLEkqz958Si Ksd3mqNRB2 bTVtTOeoNOH5R67pg8L9VT GpHCWeHHO0nIC4oG8miXia gfpgQ2SycXPiGjC3LYR1fM WmwD7ceGmd qnrbpF1hDbd+I88JXK9RKI KPGF5FUid2U1LoJzpaqVP+ OX78ZQZrGY54xBXprHDad0 xfeKv4PkEs IOGzYIG1nNmuNVzcl9CwLE SoQ86sfIUdb6O4QWYclDyv lVXaVwLzuMD7qJ2rALqabe nzo8guxywu Azals1ebby08iN65P82fCG nrCKVaPYY3HQWbJFHbyAmd pm1sgZ6fBg8+HCewj3wex8 gyfVh2CkOh EAMkebVllOygLSC2p0JlPy 31D0MppFudc5HsKiz3fr06 aFKlz9A8pYK0LCleJOLnuX 8gPXixFeV9 QOKaOcRtsT40hITeQDpiXc 0oqGusdWryTO0pESVcyenm RXAlwV4iOQHymDCejQzgYM 4wNTBpbjtm f746GdHqBIF2ZFBrgYEaP7 FvlQ1jYeUaYYTjOQNvZ6Fi pCAdFOgpC436DGykCjT7XL WgrrRyD9Qr DPGaxDexYqX4b5Y1Em4Fq9 IaaaisSPD1DUwsLKUzMfLt RkJrHyX7H0FeMdx5IBOlsS bxGM2rW9Cp YGRnlvjeqkxneGQ4LUIeGL VddT61dIAfGTbqBl1xh0K8 v410PWNsRRXryZ96Bg0dnN ogMTBwdCBU kU2keldva2xxzvycAoQxLI KkXGy0FTz8XRZidWczTkEf OVW6ZoN0HLM0kJZtsG6kcJ hsqtivxK3e Oyc+G14fhY8gACJ1XJO9xh yrXARlgyUhBP57OR82D8Xa PjwvdGFibGU+PGRpdiBzdH nzVB0bBaOj w4zgw5UqUNyuO6PtDXCwVF odAkx7KIJqFLC2fEU4kW5k HKDzFGeqk7U3lHA6J7Wamh Whqj0ul9ys PNWtLPyoZ26waLOyn0F6DV YkoMO3JGOnuHwzZeQpgK17 Oyc+YDRwbQzve7SyGykui3 fty1gcxRz1 LyFuRIPjiqTfyXopYSJ8v7 RiIh69J39wWJvsIMJiXFRy CHYbXKHqtXsrio1jcI5zPz 8+PGNvbCB3 qLO2rA3pHIFdSjZ1GUteL4 90LyLriAMcLhefb9jsb8dm rIh2EfEqWLXvbwZycBreRH B9b5XmOo68 K67tDHwhLFYwKEJiFTDtBX PzfQxnig1unX1oVl3+PC9j o6eeot68dA56rYK+PHRkIH M3zApgCYeo JNSshC6mAJemLdJ0GLJxCs BctK49cDZvELpfGm6ocOwh rUhwKY2dJAZziixog007Qt Eyq9kfCVJr xHVfYGqzMNG2F99gm9F6ZU JwWBUgVDM8xTX8fK8gvJof bjogbGVmdDsgdmVydGljYW ltYKpqZ440 IHRvcDsnPlBhdGllbnQgTm XgMRl5C6OzVzo6MXKbvJmz YH5jsWUtIVzyXj1geKmyqK xkAT7lDZKt splrw648VrRtp2hhOZAomU YcIFcyLIZ3F45hx8D2HEZt VKMxHXG8xVW1sH8qdPhirt ogbGVmdDsg boCqcIwoGEkjMQvaP695EX RvcDsnPkJpcnRoIERhdGU6 CG43CS82cWJcy4H7hCH8P7 BhZGRpbmct bgtjnCL1VFMpKXQamV41Zf 9hxYtfYk2lHKTjEIY9MEQz cDPfQ3OkmN9xIxCvQHKdIU ZtD5NriCQo IQolM114CUzcVwM8UHIsdr CzV2KrJMXalOucNgO3y0M3 Zf1ZX0X6CZ65BJ91kAPus7 B6zQW0Q8Ip ZUTkxcxampthkQH5DYQwJY WzxA08Lq6ziXlnCb6uXXSb SCO8WUKdnIQkU7UicJ3mTr AjMDAwMDAw H2HxvHReENhsN511ZGrpNj L5CQQncfKfW0KwPXAgjNpb CdL4f8T1Ny1NPUd4ZZ51JH 26aPFgy0W1 lTY5T1LeVHMvrzcmnqtvxI F1BLKgINVypZ43Id1ymBky Wb7uQKVeDVG9ZHVgiZPmB1 FftY4kCkMt DKGdUAMuE5TlaKDkXPuvV4 90HVyjSdR4BJAsopEfS9Yx ERRrvImvVeF8o0K4Ac0ZVW TrYZ43ZYI4 bKL6WL40ER71L0EnJbldjZ FibGU+PHRhYmxlIHdpZHRo IClwDREiRgNmjUcxAI0gJa 9yZGVyLWNv dYzzaDBsYiLnr6nkOHVwUF bpQW0wqNngX1CpaBU5CXKw m2f2Oz01M15xO4SheHN+PG CitAI2aNO1 jJ2kOzHrOkE8SGaoI807Yx SprMMdMhyxs5olq9zfcQe9 AkZ6CCLhtvUqnVmzVUZ4v1 XwHc29S96s IHdpZHRoPSIxNSUiIHZhbG eupf6bjL2nBe1+PGNvbCB3 iAP1vX4fWoOoQsZ0OMbbB8 49InRvcCIv Uelvy2qle1cwtGh5OdTmSK XmiqKmqFmjTPD1b5EvOq87 C8JczShbb9QgAkn1qu10oA Ays2L8yQS6 S3WtFSVgqrksqOMtlOwjWI 5aNDNnogrtELUppP4lSQJt U0n6VqYgSiD7FHfwZ7Uoxg A9PQYxzFSq XQwlUSU2S97nc1K4CDWxWW CjGKR2iLL0xS9dzNjxkhoc bGVmdDsgdmVydGljYWwtYW ckL221MDFu eAbuRVMrjM4iZPBseSSlzI xeWC0tWVNeefzdTt6QXPHP UiwgQkVUVFkgTDwvdGQ+PH BpLJE6lEap WSwhOBAowP2aGYQxE1q6Xh QzZhZ5FZtpT9BlRAMqcqtl Fo84yE2wSrGzXiP4DNgdK0 JebqM5ABQi rYXmIRczCPX0D44uw3N9YS ZjPUXaWWO0lYO4jJ5gfEyw bjogbGVmdDsgdmVydGljYW ptQAmuW491 QAIfbGsiXhHnEaU3GhP2Nt D3I2PcGju0PLHxzOhfWM5b sDYpYSiiPy0ldRsflKlaHD 4wNTBpbjtw OFFaiE9tBBRyaLYgxJpmSE 7qHKSquwhxd622FaRzEOT3 NFOxmZShJ0VteR3zFpWhSF VbDDIrV1Vy uEIhSNzbD384AVbfArV0SV PjsoWjO3WgCXGryChvZfT8 v7A7Ik33OVJJAKWvukjwwX Q+PHRkIHN0 iZgtUGyrQOVkiL2nRJMlE6 q2WxQeSkD1KOssP2YiUJOf ktqnBh93oE8jVtLiUfX1EG blO5DdlsL7 EGLlcGBoLIgmAKJ5X35lh2 U7ZXVzXGQnDLB8eBR3vL5p bGlnbjogbGVmdDsgdmVydG ljYWwtYWxp T500IHUphYvxNyKveOMfTX wvdGQ+CQGeSZI8bXldGGxr APIsrP1cTPLeU3q8UvFdSb V7GMhlT1Pn FRAihntpQg21vZ2kXlGjLx R8NDibT5SrmuS2PIOloLOn LNnuCAE9E96yd9K2AUXkQJ LzDNM2yVS7 fU4rpWpqsqjlfNCpuTzvyg NwjZdzLXhyAMrtS928BZHx jWdmPx07aLRnrTacwcV5X7 RkPjwvdHI+ TF71TYStCJ31dTPwnMIco8 pxbFu5XcIoQKBySMT6kFrd VQqdh7AmBELfB60zhDSje5 V9UPFptMwm hKNrPlEjmUP8iJ9xKBjtcw kzr1mhtwwfDozhf7phij95 iW37H01tATqmZCRuHCHpXR UiIHZhbGln dl3kfA3cAu3+JRWhgOO7aK K1wR6qMwZdBnO8TWntH250 UcXrgFKnSrjjr9koi9ielE n4GlIuUDLa wjRqmZnmZKU7l3EkDh88H5 9sIHdpZHRoPSIyMCUiIHZh qDjeda9xkW1aRo4+PC9jb2 jjmr18fA20 dHI+VCWzMGP6wExoLChoVC QixD6sVIgdSoC2PZPhKnYq jM04cDKlMEepIr6hsZuahX gwJR9uPDBa xgpyj379TnCch0rtFKQumX DxCQbfUIE9F27fo1O8NCRm UKXuDFE2qHH0rD0roZreqr ogbGVmdDsg fjCevNdaIKbpREjiY312TP ElsPqrTtOtxXSuN2lkimOH HD0gSkcqkRQ+DXIvZOJ6wE xlPSdwYWRk pF4cRADtH5t0JcHeXmB7RT xuC9BtphZ5DFJinNEdIPMd bXNFgC5ychvkg2rqbbicQp AwMDAwMDt0 QCo6NHTsrFthUlPoUPC5Fq A2NYG8bPJleL2skWaevhuz kR6yQyj+RklOOjwvdGQ+PH NeCPE6wWyu DZbtPBCwbI4iRDIcC5k2On OyVaY8DOrvC3ZelpR3TVZr cKKpVHWfwBFVxC0evawfg3 xvcjogIzAw MOGlQZf5ZOp7YEVymCezEr VkVMF4CkQ6ZOZ6fCBfvB8r jLvparcpsZ2jBxb+TVJOOj wvdGQ+PHRk EWB9hNjzRZqnKGTjmC5bJB OaB1o6KjKuOoL3QBobT1Ce haG8JGPbvRDkXZGtbRPWvD 5whlagx7tr izitQfZdLTVpVDz1CAm9CR NlsRmqNmUlETV2YuL3IUP1 tYCdvJ8ncVfwakmkxV4rUw c+JPG8QXD0 MA07DH90B8TjUdlnxQFrqH U+PHRhYmxlIHdpZHRoPScx LPZwXnPxeMonQB7bNn6zNR VyLWNvbGxh cHNl (more content not included)... [facility] Coding Summary.on 12-27-2021 Coding Summary. CD:[id number]:[id number] Gh 0bWw+PGhlYWQ+WX9PTFEtW 27uwDCizY1SB5pCHR6QCAG QJQYUNE3QAV2liBZ9LIqeD 2VybiAv OsmzbKWgYW58LUk9IEI7tH yxSOovfU5oeNYoD3b5XqRp ZN11mH30OYznOPTiJaZ1Xn ZpbjsgbWFy A3pyZuGctGKvLns+PHRhYm xlIHdpZHRoPScxMDAlJyBz zRwzMJ0cCj7gPNHzOMCzgQ xhcHNlOiBj v4wwLIMqJLrlOQ9ivMyhE4 TkaSG6JKGqh6b3Wc52bPM+ MPBdOFN4iRbcUIzuu677Jc Now6ppXMV7 xMDlUXcrPXX6N66ls7V9MG CxCQVjTEP9yVF7yS8djPqz hrmgN7MdwACmIrA1HKI1yT QdwT9quZla xtkboW2wByx+C93QIF1JAW PRHO8HZkn8S4CaIflugPC+ VG83VRBgQL66yXEavQByb4 srzZu7KdTe PHBfSFX4cSwxSCpfx6SpAG WbL70faUTwl2G3OHTjbOfo nXKcMfXvwYM4pZ1hZAgcxu noq8vppslw Swxhh7rihl44iU98W46wWE gaKZRmXSA3QTEjVFZciAgw mm4otQ3hDa1+DUnni1izq7 qgpTh7CkTn MYOauuNrcKdeKTF2c9KfIz 66B4CcrJabn8CnMkz3rg93 iTEqt5L4nBO9VLgdEKEblJ 9zNGppPpS4 IPZlIuTgdB18jVUcTQkaDk 1bzGmckDucXP6kTECwncun XQMvuV1cYMSphWLrzOqbDU 4wNTBpbjtm l155SvSoEQX0ZBBahTLoO8 MpeN7mXdVnRRPoICDkJ5Jm vIFvVFpqO197GVdoAjQ9KA FppjEgB6Et EFWeoQdtIlJ8c3P8Pd2Ii2 AjziqqELJ5CZxvREDjXlO1 JoApFgY7F3QaTau1CLIrgS jaYL4fY5El KCXfguyjotkodQV2VXVqAF NnxL21zOXpRFciRt1ew3S8 g575PYQdZLKypO09Mp1euV ogMTBwdCBU nH1bgxsnz7vfsqhsQeZwPW IcTHq6DBu4BCGfeUjyBiXs ERV5BlU9URK8iRFpfV9ktO wvxsddsM2v Oyc+O84uvZ6eQSV8GNE7ko nkBWTpmqZdAF64RZ18C4Ys PjwvdGFibGU+PGRpdiBzdH xpIW4rWrSa y9pjk6JmWCtsJ6UbSRUfQZ qfKgl3DWYtUAR9nJT1tG6i KSWsYAhkj2V4xFE5X7Gags Pyjr3bs2wk RJWqHOrfS36xhTKhk8L5BX RnwCH2CTIpbNzrOxCiqW04 Oyc+TFKtnOhjy4BdJjtxf4 hcd0gvvUz2 BbQdLZGoqhSreVykKNC5t9 NcIo37P69vSUrpZKSaPEOa PJUaLYZxoCbyzu0gwC1cQt 8+PGNvbCB3 wIO1pM0uAOQfBdM9ZUsjZ4 02UnAsaVXpIocwp9qkh4sh aRs2OoWoPQPgqpUneFrqWQ L5q7LoJq03 C74fTHuxLHApWGGqYUCiSE CxmDxkag8peU1xEs3+PC9j a6uxwk80xP20bEW+PHRkIH G1fOpkPLwj MMElbL4hKEybIxQ3DDQuWl CmpM60xMNsVBueCy5slRav lOluBI4gFOFkxapwj444Td Trz0uqEJSv oWWiYCefSSF5M72hz7D8GT QvNHPnADO1yPK0eJ7iqNmb bjogbGVmdDsgdmVydGljYW gqONngR376 IHRvcDsnPlBhdGllbnQgTm CcLZl4Y9XbKqv8QBMfyMth TP9rlHLqYJekDq0chNrjhO avQP2nOPQi cmcgb004SzMcn6biMJVkmM MaXMhzZOR4W87gz3W5IXGe VDRkPME5iJX3sI1ftUmqiw ogbGVmdDsg mdWhoCjnGPjlLJpwA447JG RvcDsnPkJpcnRoIERhdGU6 IG86KH51nCLsi4Q0kGP2U1 BhZGRpbmct ccyzwWV5XDZkGRGipI74Zp 6zqAtgMk1gXKVpKWG7QNIs rNAlM4LfcO9jUrUhNBBoFX KqN9XxjUCm JCxvR572XZtpJuZ1KRGpoh JoB8HdRWVlbKmaHfE1x9C3 On3EJ8F3JP61AB47gFRfl4 L2uHX7I2Bk FVAdkwmqyvgjlCA9FMBhXR HutK55Mp4wvTcrQx4jKQTd CWB1MSPqwLMlA7XekS0xCs AjMDAwMDAw A9SgjNCaQYunH878LXoeYv F0FTYvzrVdX9SdXDOqxPdz BiD7i2O4Ef8EMAi6KW88JY 27dKVgi2S6 xRY2J0WiZBDpzzbvsjrsdO H2CJGmHBTunK30Wt7qlEmh Mc1aLCLhVYL6KZSeqAKcM0 ImtV4kSnTf GCNeNZMyP2WbxAQqHRsqF0 53TBytKeE7AJZqoyApO0Fz QUFcjAcwXiQ5z6I6Cb9MYN ZtST24KKI4 rUB8EV83BD91U3RzQcfojQ FibGU+PHRhYmxlIHdpZHRo AHhbDRGeLcCrqBgjZK8yWs 9yZGVyLWNv uVyrcPVmQpUon5iaCHEuXM jfHL9apEtpG9CntTY9MUTh f7h9Xn32U34kT7YoiBE+PG FzbZV1lCF1 lD6wHiNsUpE3OFbkI912Ec PuuWSpRjtml4nrw7shzHq2 CnO8HNLgxkBdxCmjPUE4f7 ZvGw77O44h IHdpZHRoPSIxNSUiIHZhbG fpeu2mxB6aNa2+PGNvbCB3 uOY1dW5cCmTrKmT0IEziS4 49InRvcCIv Krkkv3pzf8uwhFh5DkRuHP OuvfFimCfhGFQ4m7UuUl08 N7SpvHukt9YnYjm9iq39gN Bpf6H9jBV7 Q2ZgIEDxsckbqKWjhOwuDP 7lVQPvtjvzUWBjkV1xQAJs Z1k4MmFxKoR6QLzwC8Wela P7SZBtyPBb EBvsJJZ6S88gj1T6SRPtWL ZlREK3wLP6oL0tnOtrdmgl bGVmdDsgdmVydGljYWwtYW qyR460NWDn oBbaTKYvtQ0cYUXyvAJnmB ouRY1uTEXeaqjhKy6BUPQE UiwgQkVUVFkgTDwvdGQ+PH TyJCO8aLir FItsUGQyhF9vUPLwP1w4Qu QsCqY6GPpyX6PaEPLkltnc Ff24dR1mJmFdBxY7ONotY0 UfzdZ3VGCl tUYmXPrjCDQ0S66hg6V0VJ WmRLZjRWZ5cNX9yE2cvJxl bjogbGVmdDsgdmVydGljYW uaECrlS915 ILWnwVxlSxWlIrX0LmX0Dx N5I6HdWbi7PKNtmLdrXT1n lFLsQXktEm6cqWyufMnsEO 4wNTBpbjtw OVYzlP3gKQUlvGKnuYhdGL 1vYUQxynxbe120NjRdCMP8 CNSlzAIvE1TcaL2iGqMlHT LaJJPwH4Ah vFOmSYlqO383QLtiVcS3OL NfzkYbZ4AdFYTvhEocRsO6 v8I2Aa56SDKXHIWisbxttV Q+PHRkIHN0 wAjrYQmfROHpfM8kEBPtL2 z2NbTcAaY0AJzxJ2RdCKKt fiuxLt42xM4jPgUlWeK9UO vgS8MyzsC7 SSTzmGFvEMkvSOY5P65eo6 P9NDDpCULbQQI7bJG4pY8h bGlnbjogbGVmdDsgdmVydG ljYWwtYWxp Y847WNKscQnrTtDldFXsJR wvdGQ+HHByDTH8kJkeYRut CHUgaO2ePAJrC2j3XeUlGp V7QYovF5Ax CXRrsnrkUa76pR0yUnStHf M8GRpmI7IgdcZ8BSVdrQIz NOvbZKN1U58ga9F2EJNfLO CbPZE9zJW3 pR6kqPihsnetjDRhyMizca NxzIghLVkwLTdqH046XGTf oSlrHt51eROcqIcnolX6P1 RkPjwvdHI+ NB57VEGkWP15oENdcLGxc6 gxbDh4GpGrHKZcGIO6pYdd GEtlg4IcGNWjS24fiHMyd7 M6MEQpdVit tITlJaHyeCC5hB7fICioev gqu4aydbexOswzk9raee29 kR38A05rJFyqLXWrYXJgMC UiIHZhbGln mk2gzA4dRk9+TJGgoJV5bS F6wX5dKtMdXtE8YYapC589 OjHfzGIzMilpq5kke8nfpL x5OsUrPKTd lcHjuEyrPWS8s7AyPl22E0 9sIHdpZHRoPSIyMCUiIHZh iRpnms8edK0gXy5+PC9jb2 qhaz37mY99 dHI+DWHoBOJ3qElsINgqDK NjfL2rERaoOuA4MBMzKcOm hD60fSFdGBsySm4oqTzdfP pgBV3gPIFq prbqe852HhZcb9reBIOguV WjOMuwPGY3S11pq7C2WYLs NCMqAGI9bAV7qE4gyBffha ogbGVmdDsg xpTufKurRLzoXZvlR549EN IfuCswPmGipXQeG3ypguRY NY9uMogtxWO+TAZuJHF8cE xlPSdwYWRk zP1mZMZpD8t7TzXpNgN4EP deS9ItflD8KILreEYpJVKo cAMRzB1arzdzz0sszyclWg AwMDAwMDt0 ZZg8OUBurXgsKfZvVPZ8Fa M0SSC2dTGqdY9peYdrggad vL4kWcl+RklOOjwvdGQ+PH QcPFA3pTmb OZgtYGCanK6eCLEyZ8p6Ml QdIuW7OHveU6FqjhQ1VZWr rKKvFDFysYNRmR0tlqjiq9 xvcjogIzAw EKFhQPc6PFm5GCOapMmqSy UxYPK4FwV7CPJ3oXIjnR6k pPixmlinbX6xLag+TVJOOj wvdGQ+PHRk NSF3vHhhXVjhRQQltP9qQH RkV7b3DgGkOoA5QCucH1Mg zcY6ZCYkuIDtMPSqmFDViO 4uuruqn6jy cainDpFpMCUtUMe8OAx4EW WquGrbBiXyITS1XvA9PVO3 sCPtcN9mlEfaozqfoM1lWu c+OUX1FNC5 WT93SL26T1ZiTjgjoXPkzI U+PHRhYmxlIHdpZHRoPScx XYYvVkIocHmgIK0qGy2kFZ VyLWNvbGxh cHNl (more content not included)... Normal [facility] Consent for Treatmenton 12-01 Consent for Treatment [id number] 0CD:127 Normal [facility] BMPon 12-19-2021 Anion gap [Moles/Vol] 14 mmol/L Normal -16 [facility] Comment on above: Performed By: #### 1 [id number], [id number], [id number] #### [facility] [address] [place] [address] Calcium [Mass/Vol] 9.6 mg/dL Normal 8.9-11.1 [facility] Comment on above: Performed By: #### 1 [id number], [id number], [id number] #### [facility] [address] [place] [address] Chloride [Moles/Vol] 105 mmol/L Normal 101-111 [facility] Comment on above: Performed By: #### 1 [id number], [id number], [id number] #### [facility] [address] [place] [address] CO2 [Moles/Vol] 27 mmol/L Normal 21-31 [facility] Comment on above: Performed By: #### 1 [id number], 1053836, [id number] #### [facility] [address] [place] [address] Creatinine [Mass/Vol] 0.9 mg/dL Normal 0.5-1.3 [facility] Comment on above: Performed By: #### 1 [id number], 0307700, [id number] #### [facility] [address] [place] [address] Glucose [Mass/Vol] 95 mg/dL Normal 55-199 [facility] Comment on above: Result Comment: If t his glucose result represents a fasting glucose, interpretation should refer to the following reference range: 55-99 mg/dL Performed By: #### 1 [id number], [id number], [id number] #### [facility] [address] [place] [address] Potassium [Moles/Vol] 4.3 mmol/L Normal 3.5-5.3 [facility] Comment on above: Performed By: #### 1 [id number], 7209596, 7255442 #### [facility] [address] [place] [address] Sodium [Moles/Vol] 142 mmol/L Normal 135-145 [facility] Comment on above: Performed By: #### 1 [id number], 2807232, [id number] #### [facility] [address] [place] [address] Urea nitrogen [Mass/Vol] 23 mg/dL High 5-21 [facility] Comment on above: Performed By: #### 1 [id number], 1243793, 7520582 #### [facility] [address] [place] [address] Urea nitrogen/Creatinine [Mass ratio] 26 No Units High 10-20 [facility] Comment on above: Performed By: #### 1 [id number], 8311489, [id number] #### [facility] [address] [place] [address] CBC w/Indiceson 12-19-2021 Erythrocyte distribution width (RBC) [Ratio] 13.3 % Normal 10.9-14.2 [facility] Comment on above: Performed By: #### 1 [id number], 7692566, [id number] #### [facility] [address] [place] [address] Hematocrit (Bld) [Volume fraction] 38.6 % Normal 34.0-46.0 [facility] Comment on above: Performed By: #### 1 [id number], 3586932, 7190020 #### [facility] [address] [place] [address] Hemoglobin (Bld) [Mass/Vol] 13.6 g/dL Normal 12.0-16.0 [facility] Comment on above: Performed By: #### 1 [id number], 6586893, 0863492 #### [facility] [address] [place] [address] MCH (RBC) [Entitic mass] 31.1 pg Normal 27.0-34.0 [facility] Comment on above: Performed By: #### 1 [id number], 7492954, [id number] #### [facility] [address] [place] [address] MCHC (RBC) [Mass/Vol] 35.2 g/dL Normal 31.4-36.0 [facility] Comment on above: Performed By: #### 1 [id number], 9690850, 5377229 #### [facility] [address] [place] [address] MCV (RBC) [Entitic vol] 88.2 fL Normal 80.0-100.0 [facility] Comment on above: Performed By: #### 1 [id number], 1311875, 5437030 #### [facility] [address] [place] [address] Platelet mean volume (Bld) [Entitic vol] 8.2 fL Normal 6.4-10.8 [facility] Comment on above: Performed By: #### 1 [id number], 4064869, 4142166 #### [facility] [address] [place] [address] Platelets (Bld) [#/Vol] 231.0 E9/L Normal 150.0-500.0 [facility] Comment on above: Performed By: #### 1 [id number], 4753250, 8838301 #### [facility] [address] [place] [address] RBC (Bld) [#/Vol] 4.4 E12/L Normal 4.3-5.9 [facility] Comment on above: Performed By: #### 1 [id number], 9006912, 9278160 #### [facility] [address] [place] [address] WBC corrected for nucl RBC Auto (Bld) [#/Vol] 4.5 E9/L Normal 4.0-11.0 [facility] Comment on above: Performed By: #### 1 [id number], 7305981, 2641072 #### [facility] [address] [place] [address] Consent for Treatmenton 12-01 Consent for Treatment [id number]#1.0 0CD:127 Normal [facility] Physician Orderon 12-19-2021 Physician Order [id number]#1. 00CD:127 Normal [facility] XR Chest 2 Viewson 2 XR Chest [...] V. Transcribed by: DELICIA Technologist: RH Normal [facility] eGFRon 12-19-2021 GFR/1.73 sq M.predicted among blacks MDRD (S/P/Bld) [Vol rate/Area] mL/min/{1.73_m2} Normal >=59 [facility] Comment on above: Order Comment: Order added by Discern Expert. Result Comment: eGFR is race adjusted. AA=. Performed By: #### 1 [id number], 8734427, 1982218 #### [facility] [address] [place] [address] GFR/1.73 sq M.predicted among non-blacks MDRD (S/P/Bld) [Vol rate/Area] mL/min/{1.73_m2} Normal >=59 [facility] Comment on above: Order Comment: Order added by Discern Expert. Result Comment: [employer] kary kidney disease could be indicated at eGFR's of less than 60 mL/min/1.73m2. Kidney failure is indicated at less than 15 mL/min/1.73m2. Performed By: #### 1 [id number], 0004078, 8972992 #### [facility] [address] [place] [address] Physician Orderon 12-06-2021 Physician Order [id number]#1. 00CD:127 Normal [facility] RAD - MISCon 11-04-2021 RAD - MISC [id number]. 00CD:127 Normal [facility] MR knee RT wo conon 08-30-20 21 MR knee RT wo con [facility] Main [address] [address] MRI Report Signed Patient: Cony Matos MR#: [id number] 19 : 1960 Acct:[id number] Age/Sex: 60 / F ADM Date: 08/30/21 Loc: [facility] Room: Type: [facility] [...] Jamarcus Prado M.D.08/30/2021 11:36 AM Dictation Location: [facility] Transcribed By: BIJAN 08/30/21 1136 Dictated By: Jamarcus Prado II, MD 08/30/21 1120 Signed By: 08/30/21 1136 [facility] XR knee RT 2Von 08-22-2021 XR knee RT 2V [facility] Main [place] [address] [place] [address] XRay Report Signed Patient: Cony Matos MR#: [id number] [birth year] : 1960 Acct:[id number] Age/Sex: 60 / F ADM Date: 08/22/21 Loc: [facility] Room: Type: [facility] Attending [...] Jamarcus Prado M.D.08/22/2021 1:26 PM Dictation Location: [place] [address] Transcribed By: BIJAN 08/22/21 1326 Dictated By: Jamarcus Prado II, MD 08/22/21 1325 Signed By: 08/22/21 1326 [facility] Cardiovascular Lab Reporton 05-17-2019 Cardiovascular Lab Report [facility] Patient Name: Stephen [facility] [place][Note 2] Ceasar MR #: [id number] Department of Physician: Rico James M.D. Division of Service Date: 05/17/2019 Cardiology Birthdate: 1960 Adult Cardiovascular Room #: [facility] [address] [place] [address] Cardiovascular Laboratory Report INDICATION: The patient is [...] signed informed consent. She was brought to [facility] in a fasting state. The right neck area was prepped and draped in usual fashion. Using ultrasound guidance and micropuncture technique, the right internal jugular vein was accessed. A 6-Ethiopian x 11 cm sheath was placed. A 6-Ethiopian Irvin catheter was used for right heart catheterization with measurement of pressures and calculation of cardiac output using the estimated Sherman method. Irvin catheter was removed. Jamar's test was favorable on the right. Access in the right radial artery was obtained using micropuncture technique, a 5-Ethiopian 11 cm Hydrophilic sheath was advanced. Verapamil was given through the sheath and heparin was administered intravenously. Bilateral selective coronary angiography was then performed using a 6-Ethiopian JL5 diagnostic catheter. This catheter was removed. [...] James M.D. Date Trans: 05/17/2019 01:54 P/mmo [id number] cc: Paddy Stone M.D. [address] [address] [facility] Vital Signs Date Time Vital Sign Value Performing Clinician Farrah arthur 08-22-2021 10:00-0400 Body height 167.64 cm Jose A Petersen Other [facility] Other 08-22-2021 10:00-0400 Body mass index (BMI) [Ratio] 25.01 kg/m2 Jose A Petersen Other [facility] Other 08-22-2021 10:00-0400 Body weight 70.31 kg Jose A Petersen Other [facility] Other Encounters Encounter Date Encounter Type Care Provider Facility Start: 04-02-2023 End: 04-03-[address] PADDY STONE . Facility:[facility] Start: 11-08-2022 Encounter for genera l adult medical examination without abnormal findings DR PADDY STONE . [facility] Start: 11-03-2022 End: 11-03-2022 ambulatory [...] End: 10-03-2021 ambulatory Jose A Petersen Other [facility] Other Start: 10-03-2021 Telephone encounter Jose A Petersen [facility] Start: 08-22-2021 Office outpatient ne w 45 minutes Jose A Petersen [facility] Start: 05-17-2019 End: 05-18-2019 Patient encounter procedure PROVIDER UNKNOWN Facility:[facility] Payers Date Payer Category Payer Unknown [id number] 2.16.8 [id number] 1960 Unknown [id number] 2.16.84 [id number] 1960 Unknown [id number] 2.16.84 [id number] 1960 Unknown [id number] 2.16.84 [id number] 1960 Unknown [id number] 2.16.84 [id number] 1960 Unknown [id number] 2.16.84 [id number] 1960 Unknown [id number] 2.16.84 [id number] 1960 Unknown [id number] 2.16.84 [id number] 1960 Unknown [id number] 2.16.84 [id number] 1958 Self-pay 1958 Unknown [id number] Social History Date Type Detail Facility Sex Assigned At [facility] Other Evaluation note 08-22-2021 Note Date & [...] of pain and plan potential surgical treatment. [facility] Other Evaluation note Note Date & Type Note Facility Evaluation note No Information [facility] Other History general Narrative - Reported Note Date & Type Note Facility History general Narrative - Reported Type Surgical History C section x3 Surgical History hysterectomy Surgical History gall bladder Hospitalization History see above [facility] Other Summary Purpose Family History No Family [...] content) DATE CREATED AUTHOR 07/12/2019 [facility] DATE CREATED AUTHOR AUTHOR'S ORGANIZ ATION 01/16/2022 [facility] DATE CREATED AUTHOR AUTHOR'S ORGANIZ ATION 02/21/2022 [facility] DATE CREATED AUTHOR AUTHOR'S ORGANIZ ATION 10/03/2022 [facility] d[facility] Specialist DATE CREATED AUTHOR AUTHOR'S ORGANIZ ATION 04/09/2023 [facility] REASON FOR VISIT (unrecogniz ed [...] BE BASED ON THE PRIMARY CLINICAL RECORDS. [employer] provides no warranty or guarantee of the accuracy or completeness of information in this document.
[2024-08-13 06:59] LABS: Basophils Absolute Auto 0.1 10^3/uL (0.0-0.1); Basophils Percent Auto 2.2 % (0.2-2.0); Eosinophils Absolute Auto 0.4 10^3/uL (0.0-0.7); Eosinophils Percent Auto 8.9 % (0.9-7.0); Hematocrit 42.4 % (36.0-48.0); Hemoglobin 14.3 g/dL (12.0-16.0); Immature Granulocytes Abs Auto 0.01 10^3/uL (0.00-0.03); Immature Granulocytes Pct Auto 0.2 % (0.0-0.5); Lymphocytes Absolute Auto 1.8 10^3/uL (1.2-3.8); Lymphocytes Percent Auto 43.2 % (20.5-60.0); Mean Corpuscular HGB Conc 33.7 g/dL (29.9-35.2); Mean Corpuscular Hemoglobin 30.2 pg (26.7-34.0); Mean Corpuscular Volume 89.5 fL (81.0-99.0); Mean Platelet Volume 9.1 fL (9.5-13.5); Monocytes Absolute Auto 0.4 10^3/uL (0.3-0.8); Monocytes Percent Auto 9.2 % (1.7-12.0); Neutrophils Absolute Auto 1.5 10^3/uL (1.4-6.5); Neutrophils Percent Auto 36.3 % (43.0-75.0); Platelet Count 245 10^3/uL (150-450); Red Blood Count 4.74 10^6/uL (4.20-5.40); Red Cell Distribution Width 12.4 % (11.0-15.0); White Blood Count 4.1 10^3/uL (4.0-11.0)
[2024-08-13 07:13] LABS: Estimated Average Glucose 94 mg/dL; Glycohemoglobin A1C 4.9 % (4.5-6.2)
[2024-08-13 07:25] LABS: Alanine Aminotransferase 22 U/L (14-59); Albumin Level 3.8 g/dL (3.4-5.0); Alkaline Phosphatase 109 U/L (46-116); Anion Gap 12.3; Aspartate Amino Transferase 19 U/L (15-37); BUN Creatinine Ratio 33.3; Bilirubin Total 0.6 mg/dL (0.2-1.0); Calcium 9.4 mg/dL (8.5-10.1); Carbon Dioxide 27.8 mmol/L (21.0-32.0); Chloride 103 mmol/L (98-107); Chol HDL Ratio 2.7; Cholesterol 220 mg/dL (<=200); Estimated GFR (African America >60 (>=60); Estimated GFR (Non-African Ame >60 (>=60); Free T3 2.67 pg/mL (2.18-3.98); Globulin 3.7 g/dL; Glucose 93 mg/dL (74-106); HDL Cholesterol 83 mg/dL (40-60); Potassium 4.1 mmol/L (3.5-5.1); Sodium 139 mmol/L (136-145); Thyroid Stimulating Hormone 1.285 uIU/mL (0.358-3.740); Total Protein 7.5 g/dL (6.4-8.2); Triglycerides 77 mg/dL (<=150); VLDL CHOLESTEROL 15.4 mg/dL
[2024-08-15 13:08] LABS: Insulin 9.2 uIU/mL (2.6-24.9)
== END 2024-08-13 06:35 | disposition home or self-care (01) ==
LOC: LAB 06:36
PROVIDERS: PCP Family Medicine; Visit Provider Family Medicine
DX: R00.2 Palpitations (principal); R53.83 Other fatigue; J18.9 Pneumonia, unspecified organism; R06.00 Dyspnea, unspecified
CPT/HCPCS: 36415; 80053; 80061; 82306; 83036; 83525; 83540; 84436; 84443; 84481; 85025

== ENCOUNTER 2024-08-15 11:24 | Outpatient (OUT) | payer OTHER, SELFPAY ==
--- OUTSIDE RECORDS SUMMARY | 2024-08-15 11:41 | XMS_ITS | CCD ---
Author Organization [facility] Care Team Providers Care Certified Composites Technician Name Role Phone UNKNOWN, PROVIDER Admitting Unavailable UNKNOWN, PROVIDER Attending Unavailable PADDY STONE Referring Unavailable SHIRLEYY, PADDY Primary Care Unavailable Jose A Petersen Unavailable SHIRLEYY ., DR THOMASON Primary Care Unavailable HOY ., DR THOMASON Consulting Unavailable HOY ., DR THOMASON Attending Unavailable HOY ., DR THOMASON Admitting Unavailable BRUNSWICK, DR WALDO Perkins Consulting Unavailable HOY ., [...] / oxyCODONE Drug Allergy 10-19-20 14 [facility] Repository (1 source) Sulfamethoxazole / Trimethoprim Drug Allergy 05-17-20 19 [facility] Repository (2 sources) Acetaminophen / oxyCODONE Drug Allergy Unknown [employer] Other (4 sources) Latex Propensity to adverse reactions Unknown [facility] [employer] Other (2 sources) Sulfacetamide / Sulfur Drug Allergy Unknown [employer] Other (2 sources) Sulfamethoxazole / Trimethoprim Drug Allergy Unknown [employer] Other (2 sources) Codeine Drug Allergy 10-12-20 14 [facility] Repository (2 sources) Latex Drug allergy (disorder) 10-25-20 14 [facility] Repository (1 source) Sulfamethoxazole / Trimethoprim Drug Allergy 01-08-20 17 [facility] Repository (1 source) Sulfonamides (Antibiotic) Drug allergy (disorder) 01-08-20 17 [facility] Repository Problems Active Problems Problem Classification [...] 04-02-2023 Creatinine [Mass/Vol] 0.80 mg/dL Normal 0.55-1.02 [facility] Comment on above: Performed By: #### L IPID, CMP, T7, TSH #### [facility] [address] [address] [address] Nga Ribeiro EGFR-AF ERITREAN >60 Normal >=60 [facility] Comment on above: Performed By: #### L IPID, CMP, T7, TSH #### [facility] [address] [address] [address] Nga Ribeiro EGFR-NON AF ERITREAN >60 Normal >=60 [facility] Comment on above: Performed By: #### L IPID, CMP, T7, TSH #### [facility] [address] [address] ABD/PELV W CONon [...] WALDO BUSTAMANTE Date: 2023-04-02 15:30 Normal [facility] OCC BLD IMMUNO SCREENon OCCULT BLOOD Negative Normal NEGATIVE [facility] Comment on above: Performed By: #### O BSCRN #### [facility] [address] [place] [address] Dr. Nga Ribeiro INSULINon 10-31-2022 Insulin 8.8 uIU/mL Normal 2.6-24.9 [facility] Comment on above: Performed By: #### L IPID, CMP, T7, TSH #### [facility] [address] [place] [address] Dr. Nga Ribeiro CBC AUTO DIFFon 10-30-2022 BASO # 0.1 103/ul Normal 0.0-0.1 [facility] Comment on above: Performed By: #### L IPID, CMP, T7, TSH #### [facility] [address] [place] [address] Dr. Nga Ribeiro Basophils/100 WBC (Bld) 1.4 % Normal 0.2-2.0 [facility] Comment on above: Performed By: #### L IPID, CMP, T7, TSH #### [facility] [address] [place] [address] Dr. Nga Ribeiro EO # 0.3 103/ul Normal 0.0-0.7 [facility] Comment on above: Performed By: #### L IPID, CMP, T7, TSH #### [facility] [address] [place] [address] Dr. Nga Ribeiro Eosinophils/100 WBC (Bld) 6.3 % Normal 0.9-7.0 [facility] Comment on above: Performed By: #### L IPID, CMP, T7, TSH #### [facility] [address] [place] [address] Dr. Nga Ribeiro Erythrocyte distribution width (RBC) [Ratio] 12.7 % Normal 11.0-15.0 [facility] Comment on above: Performed By: #### L IPID, CMP, T7, TSH #### [facility] [address] [place] [address] Dr. Nga Ribeiro Hematocrit (Bld) [Volume fraction] 40.4 % Normal 36.0-48.0 [facility] Comment on above: Performed By: #### L IPID, CMP, T7, TSH #### [facility] [address] [place] [address] Dr. Nga Ribeiro Hemoglobin (Bld) [Mass/Vol] 13.8 g/dL Normal 12.0-16.0 [facility] Comment on above: Performed By: #### L IPID, CMP, T7, TSH #### [facility] [address] [place] [address] Dr. Nga Ribeiro IG # 0.01 10e3/ul Normal 0.00-0.03 [facility] Comment on above: Performed By: #### L IPID, CMP, T7, TSH #### [facility] [address] [place] [address] Dr. Nga Ribeiro IG % 0.2 % Normal 0.0-0.5 [facility] Comment on above: Performed By: #### L IPID, CMP, T7, TSH #### [facility] [address] [place] [address] Dr. Nga Ribeiro LYMPH # 1.9 103/ul Normal 1.2-3.8 [facility] Comment on above: Performed By: #### L IPID, CMP, T7, TSH #### [facility] [address] [place] [address] Dr. Nga Ribeiro Lymphocytes/100 WBC (Bld) 46.4 % Normal 20.5-60.0 [facility] Comment on above: Performed By: #### L IPID, CMP, T7, TSH #### [facility] [address] [place] [address] Dr. Nga Ribeiro MANUAL DIFF REQ NO Normal [facility] Comment on above: Performed By: #### L IPID, CMP, T7, TSH #### [facility] [address] [place] [address] Dr. Nga Ribeiro MCH (RBC) [Entitic mass] 30.6 pg Normal 26.7-34.0 [facility] Comment on above: Performed By: #### L IPID, CMP, T7, TSH #### [facility] [address] [place] [address] Dr. Nga Ribeiro MCHC (RBC) [Mass/Vol] 34.2 g/dL Normal 29.9-35.2 [facility] Comment on above: Performed By: #### L IPID, CMP, T7, TSH #### [facility] [address] [place] [address] Dr. Nga Ribeiro MCV (RBC) [Entitic vol] 89.6 fL Normal 81.0-99.0 [facility] Comment on above: Performed By: #### L IPID, CMP, T7, TSH #### [facility] [address] [place] [address] Dr. Nga Ribeiro MONO # 0.4 103/ul Normal 0.3-0.8 [facility] Comment on above: Performed By: #### L IPID, CMP, T7, TSH #### [facility] [address] [place] [address] Dr. Nga Ribeiro Monocytes/100 WBC (Bld) 9.1 % Normal 1.7-12.0 [facility] Comment on above: Performed By: #### L IPID, CMP, T7, TSH #### [facility] [address] [place] [address] Dr. Nga Ribeiro NEUT # 1.5 103/ul Normal 1.4-6.5 [facility] Comment on above: Performed By: #### L IPID, CMP, T7, TSH #### [facility] [address] [address] [address] Nga Ribeiro Neutrophils/100 WBC (Bld) 36.6 % Critically low 43.0-75.0 [facility] Comment on above: Performed By: #### L IPID, CMP, T7, TSH #### [facility] [address] [address] [address] Nga Ribeiro Platelet mean volume (Bld) [Entitic vol] 9.2 fL Critically low 9.5-13.5 [facility] Comment on above: Performed By: #### L IPID, CMP, T7, TSH #### [facility] [address] [place] [address] Dr. Nga Ribeiro PLT 194 103/ul Normal 150-450 [facility] Comment on above: Performed By: #### L IPID, CMP, T7, TSH #### [facility] [address] [place] [address] Dr. Nga Ribeiro RBC 4.51 106/ul Normal 4.20-5.40 [facility] Comment on above: Performed By: #### L IPID, CMP, T7, TSH #### [facility] [address] [place] [address] Dr. Nga Ribeiro WBC 4.2 103/ul Normal 4.0-11.0 [facility] Comment on above: Performed By: #### L IPID, CMP, T7, TSH #### [facility] [address] [place] [address] Dr. Nga Ribeiro FREE THYROXINE INDEX T7on FTI 2.66 Normal 1.30-4.50 [facility] Comment on above: Performed By: #### L IPID, CMP, T7, TSH #### [facility] [address] [place] [address] Dr. Nga Ribeiro T3U 36.0 % Normal 30.0-39.0 [facility] Comment on above: Performed By: #### L IPID, CMP, T7, TSH #### [facility] [address] [address] [address] Nga Ribeiro T4 [Mass/Vol] 7.40 ug/dL Normal 4.80-13.90 [facility] Comment on above: Performed By: #### L IPID, CMP, T7, TSH #### [facility] [address] [address] [address] Nga Ribeiro GLYCOHEMOGLOBIN A1Con 2021 ADA RECOMMENDATION SEE BELOW Normal [facility] Comment on above: Result Comment: ADA RECOMMENDED LIMIT 4.0 - 6.0 ADA THERAPEUTIC TARGET < 7.0 ACTION SUGGESTED > 7.0 Performed By: #### A 1C #### [facility] [address] [place] [address] Dr. Nga Ribeiro Glucose [Mass/Vol] 94 mg/dL Normal [facility] Comment on above: Performed By: #### A 1C #### [facility] [address] [address] [address] Nga Ribeiro HbA1c (Bld) [Mass fraction] 4.9 % Normal 4.5-6.2 [facility] Comment on above: Performed By: #### A 1C #### [facility] [address] [address] [address] Nga Ribeiro IRONon 10-30-2022 Iron [Mass/Vol] 119.0 ug/dL Normal 50.0-170.0 [facility] Comment on above: Performed By: #### I CHARISMA #### [facility] [address] [address] [address] Nga Ribeiro LIPID PROFILEon 10-30-2022 CHOL-HDL RATIO NORM SEE BELOW Normal [facility] Comment on above: Result Comment: 3.3 - 4.4 LOW RISK 4.4 - 7.1 AVERAGE RISK 7.1 - 11.0 MODERATE RISK >11.0 HIGH RISK Performed By: #### L IPID, CMP, T7, TSH #### [facility] [address] [address] [address] Nga Ribeiro Cholesterol [Mass/Vol] 201 mg/dL Critically high <=200 [facility] Comment on above: Performed By: #### L IPID, CMP, T7, TSH #### [facility] [address] [address] [address] Nga Ribeiro Cholesterol in HDL [Mass/Vol] 78 mg/dL Critically high 40-60 [facility] Comment on above: Performed By: #### L IPID, CMP, T7, TSH #### [facility] [address] [address] [address] Nga Ribeiro Cholesterol in LDL [Mass/Vol] 108.8 mg/dL Normal [facility] Comment on above: Performed By: #### L IPID, CMP, T7, TSH #### [facility] [address] [address] [address] Nga Ribeiro Cholesterol.total/Ch olesterol in HDL [Mass ratio] 2.6 {ratio} Normal [facility] Comment on above: Performed By: #### L IPID, CMP, T7, TSH #### [facility] [address] [address] [address] Nga Ribeiro HDL NORMAL > or = 60 mg/dl - LO W CARDIOVASCULAR RISK <40 mg/dl - HIGH CARDIOVASCULAR RISK Normal [facility] Comment on above: Performed By: #### L IPID, CMP, T7, TSH #### [facility] [address] [address] [address] Nga Ribeiro LDL CALC NORMAL SEE BELOW Normal [facility] Comment on above: Result Comment: <100 mg/dl OPTIMAL 100 - 129 mg/dl NEAR OR ABOVE OPTIMAL 130 - 159 mg/dl BORDERLINE HIGH 160 - 189 mg/dl HIGH >190 mg/dl VERY HIGH Performed By: #### L IPID, CMP, T7, TSH #### [facility] [address] [address] [address] Nga Ribeiro Triglyceride [Mass/Vol] 71 mg/dL Normal <=150 [facility] Comment on above: Performed By: #### L IPID, CMP, T7, TSH #### [facility] [address] [address] [address] Nga Ribeiro VLDL CALC 14.2 mg/dL Normal [facility] Comment on above: Performed By: #### L IPID, CMP, T7, TSH #### [facility] [address] [address] [address] Nga Ribeiro PROF 14(COMP METB)on 022 Albumin [Mass/Vol] 3.8 g/dL Normal 3.4-5.0 [facility] Comment on above: Performed By: #### L IPID, CMP, T7, TSH #### [facility] [address] [place] [address] Dr. Nga Ribeiro Albumin/Globulin [Mass ratio] 1.1 {ratio} Normal [facility] Comment on above: Performed By: #### L IPID, CMP, T7, TSH #### [facility] [address] [place] [address] Dr. Nga Ribeiro ALP [Catalytic activity/Vol] 91 U/L Normal 46-116 [facility] Comment on above: Performed By: #### L IPID, CMP, T7, TSH #### [facility] [address] [address] [address] Nga Ribeiro ALT [Catalytic activity/Vol] 19 U/L Normal 14-59 [facility] Comment on above: Performed By: #### L IPID, CMP, T7, TSH #### [facility] [address] [address] [address] Nga Ribeiro Anion gap [Moles/Vol] 9.2 mmol/L Normal [facility] Comment on above: Performed By: #### L IPID, CMP, T7, TSH #### [facility] [address] [address] [address] Nga Ribeiro AST [Catalytic activity/Vol] 18 U/L Normal 15-37 [facility] Comment on above: Performed By: #### L IPID, CMP, T7, TSH #### [facility] [address] [address] [address] Nga Ribeiro Bilirubin [Mass/Vol] 0.5 mg/dL Normal 0.2-1.0 [facility] Comment on above: Performed By: #### L IPID, CMP, T7, TSH #### [facility] [address] [address] [address] Nga Ribeiro Calcium [Mass/Vol] 9.5 mg/dL Normal 8.5-10.1 [facility] Comment on above: Performed By: #### L IPID, CMP, T7, TSH #### [facility] [address] [place] [address] Dr. Nga Ribeiro Chloride [Moles/Vol] 105 mmol/L Normal 98-107 [facility] Comment on above: Performed By: #### L IPID, CMP, T7, TSH #### [facility] [address] [place] [address] Dr. Nga Ribeiro CO2 [Moles/Vol] 29.5 mmol/L Normal 21.0-32.0 [facility] Comment on above: Performed By: #### L IPID, CMP, T7, TSH #### [facility] [address] [place] [address] Dr. Nga Ribeiro Creatinine [Mass/Vol] 0.68 mg/dL Normal 0.55-1.02 [facility] Comment on above: Performed By: #### L IPID, CMP, T7, TSH #### [facility] [address] [place] [address] Dr. Nga Ribeiro EGFR-AF ERITREAN >60 Normal >=60 [facility] Comment on above: Performed By: #### L IPID, CMP, T7, TSH #### [facility] [address] [place] [address] Dr. Nga Ribeiro EGFR-NON AF ERITREAN >60 Normal >=60 [facility] Comment on above: Performed By: #### L IPID, CMP, T7, TSH #### [facility] [address] [place] [address] Dr. Nga Ribeiro Globulin (S) [Mass/Vol] 3.6 g/dL Normal [facility] Comment on above: Performed By: #### L IPID, CMP, T7, TSH #### [facility] [address] [place] [address] Dr. Nga Ribeiro Glucose [Mass/Vol] 100 mg/dL Normal 74-106 [facility] Comment on above: Performed By: #### L IPID, CMP, T7, TSH #### [facility] [address] [address] [address] Nga Ribeiro Potassium [Moles/Vol] 4.7 mmol/L Normal 3.5-5.1 [facility] Comment on above: Performed By: #### L IPID, CMP, T7, TSH #### [facility] [address] [address] [address] Nga Ribeiro Protein [Mass/Vol] 7.4 g/dL Normal 6.4-8.2 [facility] Comment on above: Performed By: #### L IPID, CMP, T7, TSH #### [facility] [address] [place] [address] Dr. Nga Ribeiro Sodium [Moles/Vol] 139 mmol/L Normal 136-145 [facility] Comment on above: Performed By: #### L IPID, CMP, T7, TSH #### [facility] [address] [address] [address] Nga Ribeiro Urea nitrogen [Mass/Vol] 19.0 mg/dL Critically high 7.0-18.0 [facility] Comment on above: Performed By: #### L IPID, CMP, T7, TSH #### [facility] [address] [place] [address] Dr. Nga Ribeiro Urea nitrogen/Creatinine [Mass ratio] 27.9 mg/mg Normal [facility] Comment on above: Performed By: #### L IPID, CMP, T7, TSH #### [facility] [address] [address] [address] Nga Ribeiro TSHon 10-30-2022 TSH 0.871 uIU/mL Normal 0.358-3.740 [facility] Comment on above: Performed By: #### L IPID, CMP, T7, TSH #### [facility] [address] [place] [address] Dr. Nga Ribeiro Covid-19 PCR ([facility]on 10-01 SARS-CoV-2 (COVID-19) RNA VALENTINA+probe Ql (Unsp spec) Not detected Normal NOT DETECTED [facility] Comment on above: Result Comment: When [...] for this test is supported by the [place] of Health and Human Service's declaration that [...] used). Performed By: #### C VDTBH #### [facility] [address] [place] [address] Dr. Nga Ribeiro INFLUENZA A AND B AGon 10-22 INFLUANEGH SEE BELOW Normal [facility] Comment on above: Result Comment: Nega tive for Flu A protein angiten. Infection due to Flu A cannot be ruled out. Flu A angiten in the sample may be below the detection limit of the test. Performed By: #### L IPID, CMP, T7, TSH #### [facility] [address] [place] [address] Dr. Nga Ribeiro INFLUBNEG SEE BELOW Normal [facility] Comment on above: Result Comment: Nega tive for Flu B protein antigen. Infection due to Flu B cannot be ruled out. Flu B antigen in the sample may be below the detection limit of the test. Performed By: #### L IPID, CMP, T7, TSH #### [facility] [address] [place] [address] Dr. Nga Ribeiro INFLUENZA A AG Negative Normal NEGATIVE SEE COMMENT [facility] Comment on above: Performed By: #### L IPID, CMP, T7, TSH #### [facility] [address] [place], [place] [address] Dr. Nga Ribeiro INFLUENZA B AG Negative Normal NEGATIVE SEE COMMENT [facility] Comment on above: Performed By: #### L IPID, CMP, T7, TSH #### [facility] [address] [place], [place] [address] Dr. Nga Ribeiro INTERNAL CONTROLS Within Normal Limits Normal Wi thin Normal Limits [facility] Comment on above: Performed By: #### L IPID, CMP, T7, TSH #### [facility] [address] [place], [place] [address] Dr. Nga Ribeiro MRI Shoulder w/o Lefton [...] tear. Report reported and signed by Maulik Stewrat on 10/02/2022 1335 Normal [facility] [employer] MG MAMM SCREEN 3D ZARI CADon 06-16-2022 MG MAMM SCREEN 3D ZARI CAD Patient: CONY MATOS. Exam Date: 06/16/2022 : 1960 Gender:F Ordering : DR ANDREW ORTEGA . Admission #: [id number] Family : Order #: [id number] CLICK HERE TO VIEW EXAM RADIOLOGY REPORT [...] Treatments Excision Family Cancers None LOCATION: [facility] BREAST COMPOSITION: Scattered areas fibroglandular density. [...] Owen Nixon M.D. on 06/16/2022 at 13:28 [facility] PAP ACOG PANEL 2: 30 to 65on 05-30-2022 . . Normal [facility] Comment on above: Result Comment: Perf ormed at: [facility] Performed By: #### L IPID, CMP, T7, TSH #### [facility] [address] [address] [address] Nga Ribeiro Age Gdln ACOG Testing 30-65 Normal [facility] Comment on above: Performed By: #### L IPID, CMP, T7, TSH #### [facility] [address] [address] [address] Nga Ribeiro DIAGNOSIS: Comment Normal [facility] Comment on above: Result Comment: UNSA TISFACTORY FOR EVALUATION. Performed at: [facility] Performed By: #### L IPID, CMP, T7, TSH #### [facility] [address] [address] [address] Nga Ribeiro HPV Aptima Negative Normal Negative [facility] Comment on above: Result Comment: This nucleic acid amplification test detects fourteen high-risk HPV types (16,18,31,33,35,39,45,51,52,56,58,59,66,68) without differentiation. Performed at: =G Performed By: #### L IPID, CMP, T7, TSH #### [facility] [address] [address] [address] Nga Ribeiro Methodology: Comment Normal [facility] Comment on above: Result Comment: This liquid based ThinPrep(R) pap test was screened with the use of an image guided system. Performed at: [facility] Performed By: #### L IPID, CMP, T7, TSH #### [facility] [address] [address] [address] Nga Ribeiro Note: Comment Normal [facility] Comment on above: Result Comment: The Pap [...] #### L IPID, CMP, T7, TSH #### [facility] [address] [address] [address] Nga Ribeiro Performed by: Comment Normal [facility] Comment on above: Result Comment: Kolton Carpio, Hvac Specialist (ASCP) Performed at: [facility] Performed By: #### L IPID, CMP, T7, TSH #### [facility] [address] [address] [address] Nga Ribeiro QC reviewed by: Comment Normal [facility] Comment on above: Result Comment: Adore Sloan, Supervisory Hvac Specialist (ASCP) Performed at: [facility] Performed By: #### L IPID, CMP, T7, TSH #### [facility] [address] [address] [address] Nga Ribeiro Recommendation: Comment Normal [facility] Comment on above: Result Comment: Sugg est follow up as clinically appropriate. Performed at: [facility] Performed By: #### L IPID, CMP, T7, TSH #### [facility] [address] [address] [address] Nga Ribeiro Specimen adequacy: Comment Normal [facility] Comment on above: Result Comment: Spec imen processed and examined but unsatisfactory for evaluation of epithelial abnormality because of insufficient cellularity. Performed at: [facility] Performed By: #### L IPID, CMP, T7, TSH #### [facility] [address] [place] [address] Dr. Nga Ribeiro Coding Summary.on 12-30-2021 Coding Summary. CD:[id number] Gh 0bWw+PGhlYWQ+HB3ZRPGrD 34ncAPlaG2NR1rIXR6HSKU KMKGIXK9HDR4ptKJ2YGsfP 2VybiAv PocinBTyLX51LPq4FXH3zE geVTjzhE4lmUIiN2v0HjCs QU15dL20XFshGEQhJiY3Vl ZpbjsgbWFy L7vqHkHbrUWxZjp+PHRhYm xlIHdpZHRoPScxMDAlJyBz vTtyQF2tYe8cQTUhPPHzhN xhcHNlOiBj x9krXPPkWPppPY6jmEqaU6 FziRP7AMUlf4r8Gq24xEZ+ GMFhPMN2sBhzSKqrt902Dv Byo2ifFAF2 kZSgSIxiJDO2E16gj7U8WJ OaCHRdOUD9hHX3tA0upQte gfecJ7ZhaZXpIwV7QOF1zS DrlK3cvJht jcckbU7wCok+A72LLT3KXM XRYY7YJtd9V1WoNftxeYH+ RZ65HXBxWI69gBTkfWIlw4 rlaSi1CnNr VVGrZDW6gTkgCKxbi2VxJL EdT75duIYtt7Y1WLCasFng fHOyKpFqoBL1sJ5kPIuouk ixe5ypbjth Xodhl1nvrh92sK17G74cCG klBXMvKCA2CSNkSOFauIgh fx3ylB1hFz9+OWors0rlj5 fhbFd0HmQv IQXcblWowPmeZBF4f9YyTi 48L5ZwhEmkj8WjMcl8oh69 wWXxx1W3uYO5LZpvQIVbvH 9gSEhcHgV7 ICSjUzYtoM64oJVeWExoHu 6qbJfbdJfnTG1rWSAvbuth UJJogW8uSVKyuOInnBgvPL 4wNTBpbjtm u271JnNzRMM4XMMdmUOtJ2 KqlR1tHpXkXJMqYNTyT9Ln dCJaHJezJ851DYwbNmZ1SD FyleJhP2Mz UKGnpKdvGjJ0n6E0Ox4Qt7 IfonlvGUM0YBrjIOFjUwKl NsVhLmO3T8QrGir1CBOxoO wsHI5dY6Yx EDZnvevnboyzbZE0LDFnNH LzgS84yIGfBYzvVs2kz6T9 w482AUEpULVxhI33Pm3pjJ ogMTBwdCBU iL1uxafyy0phvsotAkTjQN JuOTs4MLi5KFOdcNksCeHx QQD5PhL0PNT5cNVawA4lyS axafmadC2u Oyc+M80gvZ8jMFQ5ZQS7kt caJMNntiMoRF25XS15F8Np PjwvdGFibGU+PGRpdiBzdH exFP2mYcIe t6xsa7DjVTqpL3SoYKDlRF uhXkz8KJSvDOM8mTN7yY6s JXRxXCzwm5I1hDJ9P6Zoad Wdyd7pm7im BQKsCDakA82jiOFwr2P0TR ExtUR3EMYqkAoiXkLkgV77 Oyc+AGSfqWgiu4CrOcfll8 moa6hhrRn9 XbPrPDWiahXilNtsUBM4z1 RbAw69J62wARwiYVIfPLRv QHOtYEGpzAhhti7lyL3pBc 8+PGNvbCB3 uCW2xW2bBBPdUkQ5WGmsG4 72ZcKtrNUtHcljo9vse4tw aFi5GwLgBVUbraKhuAjyII Z6p0CxPw55 R31zARqeFMOlLEZvXEZvEK XdgQhaoz2orF7xQz7+PC9j v8omru78bS53cZO+PHRkIH Y8mTtnMMyk OEXixY8sTWwqYuS2MPQrBs KbuV92hVQtFChbLp2vvQdc yQziBM7lZFXypfdlb688Ni Hnl3peYQLi kSApHCsfHXZ8N46sn7W0VT KlYQPkXNF9oUX2nR1yoVvt bjogbGVmdDsgdmVydGljYW fwLQmnL248 IHRvcDsnPlBhdGllbnQgTm PdTYw4S6CbLuo4ZIQdvFer LG7aqOXnGCemUt8htUlkpV dsAN4kWNYe yeazb293UpWow8hiAJUvcW UsXUelEIC3Q40hs0D4RIDy QZNdXNK0eVW9rE6fnHekmx ogbGVmdDsg iqGfeWspFGvnACqoB510ZW RvcDsnPkJpcnRoIERhdGU6 TM26VI98wVEsq6V0lRR6S3 BhZGRpbmct obxsmML6RKEiVJLtjT73Tn 7efBvpIb4aHTEmFIE8YDFj uQQoB4YsmX6aVoTdNGAsJN JeO8JztBBh RAvaZ368YWjjDoX5JQQuyr SwV6FaHREtnRjpRwN0d9G3 Qt1QA3P8QH32ZP82uKVgz9 V5xLE4U9Xi YZPxzynbnejeqRL5HGNqEJ BueN49Tx6grBeqXw7gGDOp KCO0WTJaoFQsT7CdjB8sMi AjMDAwMDAw R5KxwRNmEFquK934WYyuXp K2JXMuiqDeF9EeCZAnzNhh PwQ2o8R1Zn6QXHy3ED93GU 76zCYsz4X8 dEE7E6FeEUTeydpysoxrfA T0DEClEHRqaR75Im2fsVzh Tq4nLUPqKAV5VHKpjPAbE1 AmgI5oEtKh GDPtXKOmB6TgxPWiOSfwK8 16ZMgjVtM6YHMzmjOmF5Uj UCNopMfaFgY0x5K7Kl0UBG YmFR62HWF2 aHA5TD48PD67G6QuGdhbrE FibGU+PHRhYmxlIHdpZHRo JSfnNIGqYvQubNqkQD9zNw 9yZGVyLWNv yGoseCMaOuMea1roEAMvHT gvRV1sxGfqX9JxuUW9ZPMj v4y1Fd52Y75bV0HhdIF+PG LabHL1aHS3 nU9tDiCcQkB2ZPboM160Am QrcDGsFbkbi9pqd5snzTf5 NbW9OOSpnxIjaEaqGFG2f2 PhRq97I57t IHdpZHRoPSIxNSUiIHZhbG scuj0scZ9nOj1+PGNvbCB3 dIA0nT4rKiPnOsD5QFibK8 49InRvcCIv Uputq9hhh0srhRm1OxTdOD MsrqUjcPhvYIL7q2OtEp83 Z6TecBnbz5DaYyk2jy93yB Jjs5D6fJV2 B6RkSPCqroxqsEAbsZqeKV 2fMVDezqzoMVHtsQ3mNXGc N5f1LwKtMjM8XLvtN7Mbuu X9KGMorSXj VWlnIEA8R47rh0L0VTQaBP CnNFO6uXD9xM4jjUkeiysr bGVmdDsgdmVydGljYWwtYW lqC994WVYu zUgnOVNjjL9oRDBjjHZxrA jsMR9jUHEghvslRy4ULVGH UiwgQkVUVFkgTDwvdGQ+PH JzIXR2pEys XJrkBJHasK4xAEQoT2f8Ns UoJsX9LFihE9FoNAQaadmu Gn59kH8rQtXpPsC5QClaJ6 LauiD1ATKz xSBmEYpmVUH8V27ew2D4XR ChNNOwGDY1lRC3mR4fnKht bjogbGVmdDsgdmVydGljYW zqZOnqC535 QGMfjEirOkQxPhR6TqU5Je P0J9QtZxp5EKHriSpcJQ4a zAKoAXwoDk8dzLfhuCxcCY 4wNTBpbjtw XEFpoQ9wGNYwmGIvmZuvSW 8rGWSbwaayq885RbCwXRE3 YEHcwISzB9OrmE3zTxZpRJ UbGWUpE3Nh mEXhBEnlA667TZelJzJ3ON QwpbGhS6WrRGQxeRfsAnJ0 j5W8Np55QOUGCNRzergvlE Q+PHRkIHN0 gLdrOQdnBNOawF6qPGMxA4 e9JyTiVyU6NLcbI0ThCHOx agkkKt58cZ6yQdMmFoH7LM tcZ7LxlwE1 KHMpeSOhEZhfKUF4M85qe0 J3PDAiEGTrMSB4bRM3wA9q bGlnbjogbGVmdDsgdmVydG ljYWwtYWxp L484PRWjlHsxVvLmlTOhAU wvdGQ+JVYbICD5nSjvYTqy OJPdiG7tQUTyZ7j6JkVvQi I0QSthR1Zu PLHdowbvSb24bS6sCtZpRd C4TPayL7KimyT3WAXimWEt JOsoWFI7H11qt1M2WDXcML EgFLZ7cYW0 kJ0xgGrnidestFDpdXzuea GngHguPVjhTRddL963HQBp kTkuWm22lSQdmNrfauS9N6 RkPjwvdHI+ OO50WFGoFA86iUHgyRCdr5 llkXl6EfTsHOSgPEL5wHuc TSela0WzDDMpV12qxISpe0 J2JUUucHgr xYWrNaFltUY5hN7eGPwjee ecp7fsgndcMtbno8damr95 oT36Z25nHEoqDYEdLXAlCU UiIHZhbGln ce1stY6oTi0+TUTptDV0zM F6sI9kLqZuMwX6ZYkzJ663 GdVscFHfVrinz1xwu6cspC t7TlZyHMRb irOybWmpBBT0x0TcVa58Q7 9sIHdpZHRoPSIyMCUiIHZh fFsjbf3mbR8dKi3+PC9jb2 vgtz08uD72 dHI+IGLpZZS9xQooLJltXN EzyC7fPLdkQwA9FZGrRqVz mU47bOPpLSqmFu8vsCrfwL cgCV1aTXGn lxtwe284DjYvd5ycUYRnhO SbYQwoIFV5Y31ld2U8LAKd GFQuOGO9yVR8tF7rrEsxeb ogbGVmdDsg oxFabUnhXDmuQEfqZ481UZ TwxNnaCgSrxFSpF8yykhCO KZ8dCqtcsUB+IPKuZRK8pC xlPSdwYWRk eX8sWCMzP2h3TbHuOqT9UG iuM1QynrY6MSTfnQZfFZZv qQKFlT7gwivww4jcbxdlNx AwMDAwMDt0 GJb6HAQqbVfpHfBeTLQ3Md U1BEQ7uERytX1udQiccwol fM0uEgo+RklOOjwvdGQ+PH CzWGO0iMih XWlyTYKerW6tRNPqI2b2Gk AzFeF4OSofE3KmhrB7LXUj sTQeBHNvaUBTmV2ongavg0 xvcjogIzAw FLKeVZl7UPw9TRQoaPgzYi IkVUP8VuM0VCE3sKAmqA6b eJbtumyvhU3sMqh+TVJOOj wvdGQ+PHRk XQT0gEqqLWsbLDAagY5kEX YqQ3t0FpHuXuL3UTgeN1In pqP2LWOwlLVyMAJluBMUkM 7hwmwmg3pk xwysRbIlHZIgLSf7IMr3EG QyhCbiVvOrSSC4RgD5TVN5 yYCouY5twXmwfqyfxJ1bAe c+GKP1VXC8 MA92PE69W5ZrIrkdjFIcdL U+PHRhYmxlIHdpZHRoPScx QOAhLbAxzCurAG8dSx7fNP VyLWNvbGxh cHNl (more content not included)... [facility] Coding Summary.on 12-27-2021 Coding Summary. CD:[id number] Gh 0bWw+PGhlYWQ+TI8RACAcV 90mtLWnpU2UU9bKFC6AJXS VWCYWDJ1BZJ8ugMX3LEfiA 2VybiAv ZkfsdUAeZZ92EFe8WCR6hM zkOLxkhD7oxOFyH4c5LeGy GW54aE52MQkqGENzRkK8Ds ZpbjsgbWFy K4kiRiKonEIjFmk+PHRhYm xlIHdpZHRoPScxMDAlJyBz oEwnPT7oWi3hOTMeJJJueF xhcHNlOiBj t9tbUCCyLNngUT8rdMtcZ8 AtqJT6CPIia9m0Rr68zTL+ OVUrVMK8nMyxNWusu781Zd Hda7ohZEE9 kCNzMZxoBEH7L71gd8Z3YA FcVNDwASC0tEL8jW4qzHeb bivuT3ZdnUPxHzP7XQQ7fL YbfD7nvZba ekqwoN4bYgu+X15BRS1XCY VAWQ6NSay3L6NdQshmpSI+ XX52YGAeXS75fUIvbXYed2 gobBr1DfPt YVSiMSL5iFcwTJuit2CfVJ WxT27oiWLqh7U2SQTtaJwi sTUfKwXqsCP5zZ5qZFmdna tai3vjoetf Ylosq5emle36uB34K75qIR rzPKErBDK4LFAvWUGknUqt ch9zdC0iQw6+QXevz2iuf1 jmjEh8LbMt AHYvedWbwDxpNZD8u2GnWi 46K6LcgQwky9DyIuv8vd41 bACxn7K8sJH2NKbaNXYkfA 5xBDlkMeF9 TCKoDdMsxX91tKSxLDtzOk 4hdLcbuVtvLP1qNJZidzbf KNOxdZ9pCGLafWJosNpxSF 4wNTBpbjtm b049CdWyGBT0LVAvqMXgI6 HkrL5eOdEmDIMdVMSiQ0Gr gNHhJVjaW019KRqyQlC4BJ HvpnYsV4Em TOGykQlkDpI7q4W9Yy2Qi4 UlpkatCWP4MShyHJDbOzD1 PpRhPsT9X4TwBpc8RIKxcU fpUU5nK1Zp OBVwtekuikmedAP2IHYqIY KczC94oIYfMNkiGi2sb1C4 q063JMNkMNFkwF09Sv0qdF ogMTBwdCBU zS3xknugd2wfdnvnMcWwRK ZqCVb5RYo4FHWbuFgqJnWv INC1XuZ4JCQ6zBTelO6ulY dqyfyzvZ7l Oyc+C84zqT7jJVZ3LTD2ol fjFQFyktPyZJ49YB77N4Va PjwvdGFibGU+PGRpdiBzdH iaJC1dDsLx n1sww0MmSVzqI8BmEFDhTW ctUdb4DIHuMPG4gGF5dY3s OBOeZLtsn4V5zDI4B5Qdur Wugn0ob7dl KCCvIIinT36ovPNzj5F4GS GhqJQ6LMApsEldKgBcrV81 Oyc+MIMahPgrv1ApZjgms3 rhw0gxwSq1 AvNiKWAmqiIzjIonKUX1i9 WzGl45G64aYKnpIAXfHNWl VJJqAKOmzKwjjq1rzU3uZl 8+PGNvbCB3 vVO2cF9aZQOmOpI2BFokI5 89ViBngPRhHojdp2msv0md hFf3AlJnSVEifrQydEpvEL T2n6JqVm13 I93cFOzhOJEgOSSlNAWfRF RswJfddx1apV5vQa8+PC9j v7cqty48kY55nTU+PHRkIH R4aJqjOHie VUWgqL3qQVphHuD6EMJsAh XuiD02lIVpQWblRm7ymMjx rBrzSG9zOTHthdmle945An Fhr1rhKJNs qAPlMTpyXHS9X10ur3K2VD WwDAGpKIG6uMK4kB4blPwl bjogbGVmdDsgdmVydGljYW ojCRdrC884 IHRvcDsnPlBhdGllbnQgTm QfEWt6Y9JnPax5FBPjbZmr KJ9aoCCeTXuoAt5ycIvduH ksUU5vNFGz lbexx085QyAkd5duZLRjqG WrMHmxXSO0E38yd8Y5VKQx NCYqOUB9pXN8xH7izPtyyb ogbGVmdDsg jbAjzCldTFsyJWajG649FQ RvcDsnPkJpcnRoIERhdGU6 XI17WO27xPDpv7Q5hET5I2 BhZGRpbmct vlwnzRD8NWNwGSSuwM67Rc 1mpGaiQy5eFXZlLBH6PONy lPRxQ9VarR9sRyVzENLkWB PoY3OmlAGw ZFupR861MPiaTkM6QLGzsm PoF0XqJXVygQvvNeU1z5W4 Ki5TY1I2ES75EN17aIFfj2 O7bVC3Z1Cp NDIowunqjmjwrRZ8GPYoLB FmoG99Mn9olFjaIx8fKXJn TRA7XCPmyKDuI5BwwF1yVk AjMDAwMDAw S7HnrYIlZOlzI302ZGryEg C1ZSWfixGiO4McFNJydWal SmB0e2Z7Az3WJLi8JS48IL 96kYWig6Q1 kKW1S0NsIZOxqrtvgliklN B0CFMwZUYuyI23Vc0qiAhs No1jVLGjWTU1CSPfoQVqS7 NtxL5wBlYn XLAzCRKsA5HmgKIjHNnxX8 00VAsoZjN0UCRnmgDnT8Tu KMJhcAttCvH3e8G5Ok3FTI UzFT17POA6 zMP8JB73TL06V5LdOzsosU FibGU+PHRhYmxlIHdpZHRo GFydMAXgMrKupSvyAJ4nZi 9yZGVyLWNv bVinvVTnSeIpb0kmEHBaLW umEN7tmWvaT2CidVM4QURq s8y1Yr52A07fQ5QkvHH+PG QrwCW0yIW4 dB4vIqSeNhI4YSaeV621Dh QdwZDbBwdii5num2sljFm3 SnG6TKKhicEtmYizUNL3m0 HhRz72P05x IHdpZHRoPSIxNSUiIHZhbG hdrk7psB1mJw0+PGNvbCB3 tBU3lJ6tOeTpHvY6JNkrD6 49InRvcCIv Uxiro1ryp7xjrSz2LzVbIT EjhtAazBhoSRQ5a3PuPu56 G1MmaLnqj9MiThl5ak03nG Sqo8P3oFH6 I6TdRJXafjjxhWBluJfdLB 6rQSMgtpczHAJjmG0lELKp J4n4NbGyChY4NIdjG7Qhnp F2ATPssAJl DZkhNRP3I91ce2N7URYaYX OnSVW7dQF3pA7izAhsckxs bGVmdDsgdmVydGljYWwtYW fwR272MSXv xZzsXOUveO3xIDGlhASreA fpME6gAPMqnjvaCy5FDRUV UiwgQkVUVFkgTDwvdGQ+PH JdUML3zAze BSbkXFDuyP9iTPJkR6r8Vx SvMyB9OMzxP6MbFRKgufxi Le22oL6lFwKkHvD5UHejQ2 QjqlA6GQCr cOOwONcjNAB0V41ir2D9XD LzGLUfPPT0lXO9wV8sqUdh bjogbGVmdDsgdmVydGljYW uvQHwxK523 OKUffTlpYpKbLnC6EgJ5Mt Y4R8VtUcu4WJNtsNzdWI3g zUGiTAdeIc8hjCvkeRtzCL 4wNTBpbjtw DVOnfA6tJOWksSZneTmoQN 8dSAJjyvjkf002XgOyBQD6 ZFMlgGDeX0ZpgW8dYuOlNO GiAEJkR2Wo sYPfCGxcT677VIhjEtM9GF QnegRrD4TpXSFtxPsiMsP2 j6Z8Qt67OYLHKQPrqxxjrQ Q+PHRkIHN0 uPbuPPboVYQtsZ7sTBRlP0 g6HpCsTbH3SBaxH7DtSITi rvwqVl11vM5zSbGiWvB2HF tnA1IsjnV9 OQJapCWtDGxhEPV9B34it4 I9IJYhEZCvWDM6pIL3aG6l bGlnbjogbGVmdDsgdmVydG ljYWwtYWxp Y937DWAssMsgAlWwoLTxWL wvdGQ+RKVdUOY3xBbdLKyo SYYkpA6zSTCgW9h1LmBbCv I3IVuaF4Xl NAWagubgSi05cH1dNhDbZa W4NZzhY9EmciQ7TUTttKXm BXknNXB7F65dv9R0YOXvNF GgBJG3uOA6 wX1veIiphqngwBHoyVuctp IpbBwuEDwhOZovL772WRRt zUobHq72rWVpwQferzD0R4 RkPjwvdHI+ ZZ57OGLdFP11sHCkiFAdj6 vyiWy6IcMmEFSeLKF7sQug QTxfs4HoEQEsR67tbGOof7 X7BCAesJwd tUGuWcItvEA0zV7zNAeewp jaf7ovvjpmJbyzc0ugzl37 xG90E68dKDtqCLZxZSZcYU UiIHZhbGln mk5fkC6dEx6+DYEouOP0mW C3qM4rDcVbZgB2XRroN452 FpGepFCnEsiwh9cni4stnK u9AkMhGNNo ptXkhEbpKLW3h6GcHr97E8 9sIHdpZHRoPSIyMCUiIHZh gQihmn2rhS7tUr5+PC9jb2 fzbf13lZ67 dHI+HPKrHMJ5aPskUBkhZS TbnF4sROlrRpC2SIFkQnAv kZ36pRToRJhzIb1uxVpeaM xvME6nXLVp cjzpk299QqCop3wkMJIqaT NuSUblHUK1I34ve0L6DLIo MHFtVXQ9vQR2pU1ghWqfgb ogbGVmdDsg feEicDxxCYfeUWgkF538HH TmmDoiCpBmwGBcM1eavtQN BI1bHjcauMK+ILBjMWJ9uZ xlPSdwYWRk aZ4sZENxN1g7MtVyOzN7CM qsD4BouoK3ATJnnKYcSYDc oYEYgU9kwlfgq2plrqqrKa AwMDAwMDt0 VDx6NNPmhYbbCgKaGKU6Yi T5LFF9iEJwfU9dtHiwtejg jG1pGko+RklOOjwvdGQ+PH RsSCH7zLqx BQpnUACvfW3oEERuG2v9Om XfZbW8HCvzC2MxbjT7DFHg rEYpHSQybIJPaR7svaihf0 xvcjogIzAw AJNtUOs3YOp9UODzvOjiTh AmJGW5BzS6EKG7sTViiK6h uHlexcwxyG2gFfp+TVJOOj wvdGQ+PHRk WYP6bGqpSUhwPYCnaH1kEU HvR3x8PkHwMrX4IEihA8Zl ckR2HQNbcBMbBYQvxLCHaD 2gnmgks5xr bvarMhGyXXVfZSr7GQf0KC YzbNaeTbJhKPP4MyM9XWR9 lNJczU6qtAaeeywazK1lQc c+KPD2KHC5 TU54KQ06M8ZcJvqsaKOkyW U+PHRhYmxlIHdpZHRoPScx MMDqQaNmgNvoCR2dRz7yMI VyLWNvbGxh cHNl (more content not included)... Normal [facility] Consent for Treatmenton 12-01 Consent for Treatment [id number] 0CD:127 Normal [facility] BMPon 12-19-2021 Anion gap [Moles/Vol] 14 mmol/L Normal -16 [facility] Comment on above: Performed By: #### 1 [id number], [id number], [id number] #### [facility] [address] [place] [address] Calcium [Mass/Vol] 9.6 mg/dL Normal 8.9-11.1 [facility] Comment on above: Performed By: #### 1 [id number], 7531567, [id number] #### [facility] [address] [place] [address] Chloride [Moles/Vol] 105 mmol/L Normal 101-111 [facility] Comment on above: Performed By: #### 1 [id number], 7999645, 9325118 #### [facility] [address] [place] [address] CO2 [Moles/Vol] 27 mmol/L Normal 21-31 [facility] Comment on above: Performed By: #### 1 [id number], 0511746, 0915568 #### [facility] [address] [place] [address] Creatinine [Mass/Vol] 0.9 mg/dL Normal 0.5-1.3 [facility] Comment on above: Performed By: #### 1 [id number], 9997353, 9670917 #### [facility] [address] [place] [address] Glucose [Mass/Vol] 95 mg/dL Normal 55-199 [facility] Comment on above: Result Comment: If t his glucose result represents a fasting glucose, interpretation should refer to the following reference range: 55-99 mg/dL Performed By: #### 1 [id number], 6590616, 0591939 #### [facility] [address] [place] [address] Potassium [Moles/Vol] 4.3 mmol/L Normal 3.5-5.3 [facility] Comment on above: Performed By: #### 1 1521637, 2494089, 9188203 #### [facility] [address] [place] [address] Sodium [Moles/Vol] 142 mmol/L Normal 135-145 [facility] Comment on above: Performed By: #### 1 1247395, 9345535, 4438491 #### [facility] [address] [place] [address] Urea nitrogen [Mass/Vol] 23 mg/dL High 5-21 [facility] Comment on above: Performed By: #### 1 3511028, 6797236, 1574225 #### [facility] [address] [place] [address] Urea nitrogen/Creatinine [Mass ratio] 26 No Units High 10-20 [facility] Comment on above: Performed By: #### 1 7766405, 2219894, 8436657 #### [facility] [address] [place] [address] CBC w/Indiceson 12-19-2021 Erythrocyte distribution width (RBC) [Ratio] 13.3 % Normal 10.9-14.2 [facility] Comment on above: Performed By: #### 1 [id number], 1620004, 5554882 #### [facility] [address] [place] [address] Hematocrit (Bld) [Volume fraction] 38.6 % Normal 34.0-46.0 [facility] Comment on above: Performed By: #### 1 8392812, 8966627, 7945834 #### [facility] [address] [place] [address] Hemoglobin (Bld) [Mass/Vol] 13.6 g/dL Normal 12.0-16.0 [facility] Comment on above: Performed By: #### 1 1581907, 2924163, 1927227 #### [facility] [address] [place] [address] MCH (RBC) [Entitic mass] 31.1 pg Normal 27.0-34.0 [facility] Comment on above: Performed By: #### 1 1187026, 5592434, 6328455 #### [facility] [address] [place] [address] MCHC (RBC) [Mass/Vol] 35.2 g/dL Normal 31.4-36.0 [facility] Comment on above: Performed By: #### 1 [id number], 0757516, 6231344 #### [facility] [address] [place] [address] MCV (RBC) [Entitic vol] 88.2 fL Normal 80.0-100.0 [facility] Comment on above: Performed By: #### 1 7199987, 1154531, 8798805 #### [facility] [address] [place] [address] Platelet mean volume (Bld) [Entitic vol] 8.2 fL Normal 6.4-10.8 [facility] Comment on above: Performed By: #### 1 8305889, 7614343, 3676125 #### [facility] [address] [place] [address] Platelets (Bld) [#/Vol] 231.0 E9/L Normal 150.0-500.0 [facility] Comment on above: Performed By: #### 1 [id number], 9866338, 3513085 #### [facility] [address] [place] [address] RBC (Bld) [#/Vol] 4.4 E12/L Normal 4.3-5.9 [facility] Comment on above: Performed By: #### 1 1756713, 4970366, 1614308 #### [facility] [address] [place] [address] WBC corrected for nucl RBC Auto (Bld) [#/Vol] 4.5 E9/L Normal 4.0-11.0 [facility] Comment on above: Performed By: #### 1 9517754, 5072966, 8333966 #### [facility] [address] [place] [address] Consent for Treatmenton 12-01 Consent for Treatment [id number]#1.0 0CD:127 Normal [facility] Physician Orderon 12-19-2021 Physician Order [id number]#1. 00CD:127 Normal [facility] XR Chest 2 Viewson 2 XR Chest [...] V. Transcribed by: DELICIA Technologist: RH Normal [facility] eGFRon 12-19-2021 GFR/1.73 sq M.predicted among blacks MDRD (S/P/Bld) [Vol rate/Area] mL/min/{1.73_m2} Normal >=59 [facility] Comment on above: Order Comment: Order added by Discern Expert. Result Comment: eGFR is race adjusted. AA=. Performed By: #### 1 [id number], 1884287, 2518678 #### [facility] [address] [place] [address] GFR/1.73 sq M.predicted among non-blacks MDRD (S/P/Bld) [Vol rate/Area] mL/min/{1.73_m2} Normal >=59 [facility] Comment on above: Order Comment: Order added by Discern Expert. Result Comment: Project Product Manager kary kidney disease could be indicated at eGFR's of less than 60 mL/min/1.73m2. Kidney failure is indicated at less than 15 mL/min/1.73m2. Performed By: #### 1 [id number], 5616714, 0144215 #### [facility] [address] [place] [address] Physician Orderon 12-06-2021 Physician Order [id number]#1. 00CD:127 Normal [facility] RAD - MISCon 11-04-2021 RAD - MISC [id number]#1. 00CD:127 Normal [facility] MR knee RT wo conon 08-30-20 21 MR knee RT wo con [facility] [address] [address] MRI Report Signed Patient: Cony Matos MR#: [id number] [birth year] : 1960 Acct:[id number] Age/Sex: 60 / F ADM Date: 08/30/21 Loc: [facility] Room: Type: [facility] Attending Dr: Jose A Petersen MD [...] Jamarcus Prado M.D.08/30/2021 11:36 AM Dictation Location: [facility] [address] Transcribed By: BIJAN 08/30/21 1136 Dictated By: Jamarcus Prado II, MD 08/30/21 1120 Signed By: 08/30/21 1136 [facility] XR knee RT 2Von 08-22-2021 XR knee RT 2V [facility] [place] [address] [place] [address] XRay Report Signed Patient: Cony Matos MR#: [id number] [birth year] : 1960 Acct:[id number] Age/Sex: 60 / F ADM Date: 08/22/21 Loc: [facility] Room: Type: [facility] Attending Dr: Jose A Petersen MD [...] Jamarcus Prado M.D.08/22/2021 1:26 PM Dictation Location: [place] [address] Transcribed By: BIJAN 08/22/21 1326 Dictated By: Jamarcus Prado II, MD 08/22/21 1325 Signed By: 08/22/21 1326 [facility] Cardiovascular Lab Reporton 05-17-2019 Cardiovascular Lab Report [facility] Patient Name: Stephen [facility] Ceasar MR #: [id number] Department of Physician: Rico James M.D. Division of Service Date: 05/17/2019 Cardiology Birthdate: 1960 Adult Cardiovascular Room #: [facility] [address] [place] [address] Cardiovascular Laboratory Report INDICATION: The patient is [...] signed informed consent. She was brought to label folder in a fasting state. The right neck area was prepped and draped in usual fashion. Using ultrasound guidance and micropuncture technique, the right internal jugular vein was accessed. A 6-Bangladeshi x 11 cm sheath was placed. A 6-Bangladeshi Irvin catheter was used for right heart catheterization with measurement of pressures and calculation of cardiac output using the estimated Sherman method. Irvin catheter was removed. Jamar's test was favorable on the right. Access in the right radial artery was obtained using micropuncture technique, a 5-Bangladeshi 11 cm Hydrophilic sheath was advanced. Verapamil was given through the sheath and heparin was administered intravenously. Bilateral selective coronary angiography was then performed using a 6-Bangladeshi JL5 diagnostic catheter. This catheter was removed. [...] James M.D. Date Trans: 05/17/2019 01:54 P/mmo [id number] cc: Paddy Stone M.D. [address] [address] [facility] Vital Signs Date Time Vital Sign Value Performing Clinician Farrah arthur 08-22-2021 10:00-0400 Body height 167.64 cm Jose A Petersen Other [facility] Other 08-22-2021 10:00-0400 Body mass index (BMI) [Ratio] 25.01 kg/m2 Jose A Petersen Other [facility] Other 08-22-2021 10:00-0400 Body weight 70.31 kg Jose A Petersen Other [facility] Other Encounters Encounter Date Encounter Type Care Provider Facility Start: 04-02-2023 End: 04-03-[address] PADDY STONE . Facility:[facility] Start: 11-08-2022 Encounter for genera l adult medical examination without abnormal findings DR PADDY STONE . [facility] Start: 11-03-2022 End: 11-03-[address] [...] End: 10-03-2021 ambulatory Jose A Petersen Other [facility] Other Start: 10-03-2021 Telephone encounter [facility] Start: 08-22-2021 Office outpatient ne w 45 minutes Jose A Petersen [facility] Start: 05-17-2019 End: 05-18-2019 Patient encounter procedure PROVIDER UNKNOWN Facility:[facility] Payers Date Payer Category Payer Unknown [id number] 1960 Unknown [id number] 2.16.84 [id number] 1960 Unknown [id number] 2.16.84 [id number] 1960 Unknown [id number] 2.16.84 [id number] 1960 Unknown [id number] 2.16.84 [id number] 1960 Unknown [id number] 2.16.84 [id number] 1960 Unknown [id number] 2.16.84 [id number] 1960 Unknown [id number] 2.16.84 [id number] 1960 Unknown [id number] 2.16.84 [id number] 1958 Self-pay 1958 Unknown [id number] Social History Date Type Detail Facility Sex Assigned At [facility] Other Evaluation note 08-22-2021 Note Date & [...] of pain and plan potential surgical treatment. [facility] Other Evaluation note Note Date & Type Note Facility Evaluation note No Information [facility] Other History general Narrative - Reported Note Date & Type Note Facility History general Narrative - Reported Type Surgical History C section x3 Surgical History hysterectomy Surgical History gall bladder Hospitalization History see above [facility] Other Summary Purpose Family History No Family [...] and content) DATE CREATED AUTHOR 07/12/2019 [facility] DATE CREATED AUTHOR AUTHOR'S ORGANIZ ATION 01/16/2022 [facility] DATE CREATED AUTHOR AUTHOR'S ORGANIZ ATION 02/21/2022 [facility] DATE CREATED AUTHOR AUTHOR'S ORGANIZ ATION 10/03/2022 [facility] dical Specialist DATE CREATED AUTHOR AUTHOR'S ORGANIZ ATION 04/09/2023 [facility] REASON FOR VISIT (unrecogniz ed [...] BE BASED ON THE PRIMARY CLINICAL RECORDS. [employer] provides no warranty or guarantee of the accuracy or completeness of information in this document.
[2024-08-15 12:19] LABS: Anion Gap 9.4; BUN Creatinine Ratio 28.8; Calcium 9.6 mg/dL (8.5-10.1); Carbon Dioxide 27.9 mmol/L (21.0-32.0); Chloride 102 mmol/L (98-107); Estimated GFR (African America >60 (>=60); Estimated GFR (Non-African Ame >60 (>=60); Glucose 93 mg/dL (74-106); Potassium 4.3 mmol/L (3.5-5.1); Sodium 135 mmol/L (136-145)
== END 2024-08-15 11:25 | disposition home or self-care (01) ==
LOC: LAB 11:25
PROVIDERS: PCP Family Medicine; Visit Provider Family Medicine
DX: R79.9 Abnormal finding of blood chemistry, unspecified (principal)
CPT/HCPCS: 36415; 80048

== ENCOUNTER 2025-01-14 07:57 | Emergency (ER) | payer OTHER, SELFPAY ==
[2025-01-14] VITALS (21 sets, daily range): BP systolic 109–132; BP diastolic 71–89; PULSE 79–113; TEMP 36.7; O2SAT 95–100; BMI 26.3
--- NOTE | 2025-01-14 08:06 | ED_ITS ---
HPI - Nausea/Vomiting/Diarrhea General Chief complaint: Nausea/Vomiting/Diarrhea Stated complaint: VOMITING, NAUSEA Time Seen by Provider: 01/14/25 08:00 Source: patient Mode of arrival: ambulance Limitations: no limitations History of Present Illness HPI Narrative: 64-year-old female presents to the emergency department for nausea and vomiting which started at 3:00 this morning. She has not had diarrhea. She states she gets the chills and then sometimes her chest hurts. No fever or hematemesis. No complaints of dysuria. Related Data Previous Rx's ?Medication ?Instructions ?Recorded ondansetron 4 mg disintegrating 4 mg PO Q6H PRN nausea and 01/14/25 tablet vomiting #20 tabs Allergies Allergy/AdvReac Type Severity Reaction Status Date / Time acetaminophen (From Percocet) Allergy itch Verified 01/14/25 08:02 latex Allergy itch Verified 01/14/25 08:02 oxycodone (From Percocet) Allergy itch Verified 01/14/25 08:02 Review of Systems ROS Narrative A ten point review of systems is negative except as noted above. Exam Narrative Exam Narrative: Nurses note and vital signs reviewed and patient is not hypoxic. General: The patient appears in no acute distress. She appears uncomfortable. Skin: Warm, dry, no pallor noted. There is no rash noted. Head: Normocephalic, atraumatic Eye: Normal conjunctiva, no drainage Ears, Nose, Mouth, and Throat: oral mucosa is moist. Nares patent. Cardiovascular: Regular Rate and Rhythm Respiratory: Patient is in no distress, no accessory muscle use, lungs are clear to auscultation, no wheezing, rales or rhonchi Back: non-tender GI: Soft and nontender. Bowel sounds are normal. No distention or mass. Musculoskeletal: The patient has no evidence of calf tenderness, no pitting edema, symmetrical pulses noted bilaterally Neurological: A&O, normal speech Psychiatric: Cooperative Constitutional Vital Signs, click to edit/add: Last Vital Signs Temp 98.1 F 01/14/25 08:02 Pulse 98 H 01/14/25 10:30 Resp 18 01/14/25 10:30 BP 119/75 01/14/25 10:30 Pulse Ox 96 01/14/25 10:30 O2 Del Method Room Air 01/14/25 08:02 Course Vital Signs Vital signs: Vital Signs Temperature 98.1 F 01/14/25 08:02 Pulse Rate 96 H 01/14/25 08:02 Respiratory Rate 16 01/14/25 08:02 Blood Pressure 121/78 01/14/25 08:02 Pulse Oximetry 98 01/14/25 08:02 Oxygen Delivery Method Room Air 01/14/25 08:02 Temperature 98.1 F 01/14/25 08:02 Pulse Rate 98 H 01/14/25 10:30 Respiratory Rate 18 01/14/25 10:30 Blood Pressure 119/75 01/14/25 10:30 Pulse Oximetry 96 01/14/25 10:30 Oxygen Delivery Method Room Air 01/14/25 08:02 MDM - Nausea/Vomiting/Diarrhea MDM Narrative Medical decision making narrative: The patient feels much better now after being given IV fluids and Zofran and Ativan. She was able to rest and is tolerating p.o. liquids without difficulty. She is discharged home with a prescription for Ativan. Treatment diagnosis and follow-up were discussed with the patient. Differential Diagnosis Differential diagnosis: Likely food poisoning, gastroenteritis and dehydration Lab Data Attestation: I reviewed the patient's lab results. Labs: Lab Results 01/14/25 01/14/25 Range/Units 08:10 11:07 WBC 5.8 (4.0-11.0) 10^3/uL RBC 5.02 (4.20-5.40) 10^6/uL Hgb 15.3 (12.0-16.0) g/dL Hct 44.1 (36.0-48.0) % MCV 87.8 (81.0-99.0) fL MCH 30.5 (26.7-34.0) pg MCHC 34.7 (29.9-35.2) g/dL RDW 12.3 (11.0-15.0) % Plt Count 178 (150-450) 10^3/uL MPV 9.4 L (9.5-13.5) fL Seg Neuts % (Manual) 83.0 H (43.0-75.0) Band Neutrophils % 7.0 H (0-5) % Lymphocytes % (Manual) 5.0 L (20.5-60.0) % Monocytes % (Manual) 1.0 L (1.7-12.0) % Eosinophils % (Manual) 4.0 (0.9-7.0) % Basophils % (Manual) 0.0 L (0.2-2.0) % Neutrophils # (Manual) 4.81 (1.4-6.5) 10^3/uL Band Neutrophils # 0.4 H (0.0-0.3) 10^3/uL Lymphocytes # (Manual) 0.29 L (1.20-3.80) 10^3/uL Monocytes # (Manual) 0.05 L (0.30-0.80) 10^3/uL Eosinophils # (Manual) 0.23 (0.00-0.70) 10^3/uL Basophils # (Manual) 0.00 (0.00-0.10) 10^3/uL Sodium 142 (136-145) mmol/L Potassium 3.6 (3.5-5.1) mmol/L Chloride 105 (98-107) mmol/L Carbon Dioxide 23.9 (21.0-32.0) mmol/L Anion Gap 16.7 BUN 27.0 H (7.0-18.0) mg/dL Creatinine 0.86 (0.55-1.02) mg/dL Est GFR ( Amer) >60 (>=60 mL/min/1.73m^2) Est GFR (Non-Af Amer) >60 (>=60 mL/min/1.73m^2) BUN/Creatinine Ratio 31.4 Glucose 165 H (74-106) mg/dL Calcium 9.6 (8.5-10.1) mg/dL Urine Color Lt. yellow (YELLOW) Urine Clarity Clear (CLEAR) Urine pH 7.0 (5.0-9.0) Ur Specific [facility] 1.015 (1.005-1.025) Urine Protein Negative (NEG/TRACE) mg/dL Urine Glucose (UA) Negative (NEGATIVE) mg/dL Urine Ketones Trace A (NEGATIVE) mg/dL Urine Occult Blood Negative (NEGATIVE) Urine Nitrite Negative (NEGATIVE) Urine Bilirubin Negative (NEGATIVE) Urine Urobilinogen 0.2 (0.2-1.0) EU/dL Ur Leukocyte Esterase Negative (NEGATIVE) ECG Data Attestation: I personally reviewed and interpreted this ECG as follows: (EKG on my interpretation shows normal sinus rhythm with rate of 81 and no acute change.) Discharge Plan Discharge Chief Complaint: Nausea/Vomiting/Diarrhea Clinical Impression: Nausea & vomiting Patient Disposition: Home, Self-Care Time of Disposition Decision: 11:06 Condition: Good Mode of Transportation: Private Vehicle Prescriptions / Home Meds: New ondansetron 4 mg tablet,disintegrating 4 mg PO Q6H PRN (Reason: nausea and vomiting) Qty: 20 0RF Print Language: Uzbek Instructions: Acute Nausea and Vomiting (ED) Referrals: Naif Stone MD [Primary Care Provider] - 1 week
--- NOTE | 2025-01-14 08:06 | ECG_ITS ---
[facility] Test Date: 2025-01-14 Pat Name: JOCELYNE MATOS Department: Room: - Gender: Female [employer]: : [id number] Requested By: PADDY HER Order Number: [id number] Reading MD: PADDY HER Measurements Intervals [place] Rate: 81 P: 69 VT: 160 QRS: 65 QRSD: 82 T: 72 QT: 402 QTc: 439 Interpretive Statements 1100 Sinus rhythm 9110 normal ECG No previous ECG available for comparison Electronically Signed On 01-18-2025 7:05:55 EST by PADDY HER
--- OUTSIDE RECORDS SUMMARY | 2025-01-14 08:17 | XMS_ITS | CCD ---
Author Organization [facility] Care Team Providers Care Shank Archer Name Role Phone UNKNOWN, PROVIDER Admitting Unavailable UNKNOWN, PROVIDER Attending Unavailable PADDY STONE Referring Unavailable PADDY STONE Primary Care Unavailable Jose A Petersen Unavailable ARDEN ., DR THOMASON Primary Care Unavailable HOY ., DR THOMASON Consulting Unavailable HOY ., DR THOMASON Attending Unavailable HOY ., DR THOMASON Admitting Unavailable COPALIS CROSSING, DR WALDO Perkins Consulting Unavailable HOY ., [...] SHIRLEYY ., DR THOMASON Primary Care Unavailable KIANA LEMONS Referring Unavailable KIANA LEMONS Attending Unavailable KIANA LEMONS Referring Unavailable Paddy Stone MD Primary Care Provider [phone] Allergies Allergy Classification Reported Allergen(s) Allergy Type Date of Onset Reaction(s) Facility (3 sources) Acetaminophen / oxyCODONE Drug Allergy 10-19-20 14 [facility] Repository (1 source) Sulfamethoxazole / Trimethoprim Drug Allergy 05-17-20 19 [facility] Repository (2 sources) Acetaminophen / oxyCODONE Drug Allergy Unknown [facility] Other (4 sources) Latex Propensity to adverse reactions Unknown [facility] Other (2 sources) Sulfacetamide / Sulfur Drug Allergy Unknown [facility] Other (4 sources) Sulfamethoxazole / Trimethoprim Drug Allergy 10-20-20 24 Unknown [facility] Other (2 sources) Codeine Drug Allergy 10-12-20 14 [facility] (2 sources) Latex Drug allergy (disorder) 10-25-20 14 [facility] (1 source) Sulfamethoxazole / Trimethoprim Drug Allergy 01-08-20 17 [facility] (1 source) Sulfonamides (Antibiotic) Drug allergy (disorder) 01-08-20 17 [facility] (2 sources) Acetaminophen Drug Allergy 02-08-20 20 [facility] (2 sources) Codeine Drug Allergy 10-20-20 24 [facility] (2 sources) Estrogens Drug Allergy 10-20-20 24 Shortness of breath [facility] (2 sources) Latex Allergy to substance 05-16-20 09 Itching [facility] (2 sources) oxyCODONE Drug Allergy 02-08-20 [facility] (2 sources) Sulfamethoxazole Allergy to substance 02-08-20 [facility] (2 sources) Trimethoprim Drug Allergy 02-08-20 20 [facility] Medications Current Medications Medication Drug Class(es) Dates Sig (Normalized) Sig (Original) albuterol 0.83 mg/ml inhalation solution (2 sources) beta2-Adrenergic Agonist Start: 09-05-2024 albuterol (2.5 MG/3ML) 0.083% nebulizer solution INHALE 3 ML EVERY 6 HOURS NEEDED 09/05/2024 Active montelukast 10 mg oral tablet (2 sources) Leukotriene Receptor Antagonist Start: 08-11-2024 take 1 tablet by mouth once daily montelukast (Singulair) 10 MG tablet TAKE 1 TABLET BY MOUTH EVERY DAY FOR 30 DAYS 08/11/2024 Active Problems Active Problems Problem Classification Problem Date [...] right knee] Onset: 08-22-2021 Resolved: 08-22-2021 Chronic Other non-traumatic joint disorders (2 sources) Hip pain; Translations: [Pain in left hip] 10-18-2024 Episodic Unclassified (3 sources) CONTACT W/AND (SUSP) EXPOS [...] 04-02-2023 Creatinine [Mass/Vol] 0.80 mg/dL Normal 0.55-1.02 [facility] Comment on above: Performed By: #### L IPID, CMP, T7, TSH #### [facility] [address] [address] [address] Nga Ribeiro EGFR-AF DJIBOUTIAN >60 Normal >=60 [facility] Comment on above: Performed By: #### L IPID, CMP, T7, TSH #### [facility] [address] [place], [place] [address] Dr. Nga Ribeiro EGFR-NON AF DJIBOUTIAN >60 Normal >=60 [facility] Comment on above: Performed By: #### L IPID, CMP, T7, TSH #### [facility] [address] ABD/PELV W CONon [...] O BSCRN #### [facility] [address] [place] [address] Dr. Nga Ribeiro INSULINon 10-31-2022 Insulin 8.8 uIU/mL Normal 2.6-24.9 [facility] Comment on above: Performed By: #### L IPID, CMP, T7, TSH #### [facility] [address] [place] [address] Dr. Nga Ribeiro CBC AUTO DIFFon 10-30-2022 BASO # 0.1 103/ul Normal 0.0-0.1 [facility] Comment on above: Performed By: #### L IPID, CMP, T7, TSH #### [facility] [address] [place] [address] Dr. Nga Ribeiro Basophils/100 WBC (Bld) 1.4 % Normal 0.2-2.0 [facility] Comment on above: Performed By: #### L IPID, CMP, T7, TSH #### [facility] [address] [place] [address] Dr. Nga Ribeiro EO # 0.3 103/ul Normal 0.0-0.7 [facility] Comment on above: Performed By: #### L IPID, CMP, T7, TSH #### [facility] [address] [place] [address] Dr. Nga Ribeiro Eosinophils/100 WBC (Bld) 6.3 % Normal 0.9-7.0 [facility] Comment on above: Performed By: #### L IPID, CMP, T7, TSH #### [facility] [address] [place] [address] Dr. Nga Ribeiro Erythrocyte distribution width (RBC) [Ratio] 12.7 % Normal 11.0-15.0 [facility] Comment on above: Performed By: #### L IPID, CMP, T7, TSH #### [facility] [address] [place] [address] Dr. Nga Ribeiro Hematocrit (Bld) [Volume fraction] 40.4 % Normal 36.0-48.0 [facility] Comment on above: Performed By: #### L IPID, CMP, T7, TSH #### [facility] [address] [place] [address] Dr. Nga Ribeiro Hemoglobin (Bld) [Mass/Vol] 13.8 g/dL Normal 12.0-16.0 [facility] Comment on above: Performed By: #### L IPID, CMP, T7, TSH #### [facility] [address] [place] [address] Dr. Nga Ribeiro IG # 0.01 10e3/ul Normal 0.00-0.03 [facility] Comment on above: Performed By: #### L IPID, CMP, T7, TSH #### [facility] [address] [place] [address] Dr. Nga Ribeiro IG % 0.2 % Normal 0.0-0.5 [facility] Comment on above: Performed By: #### L IPID, CMP, T7, TSH #### [facility] [address] [place] [address] Dr. Nga Ribeiro LYMPH # 1.9 103/ul Normal 1.2-3.8 [facility] Comment on above: Performed By: #### L IPID, CMP, T7, TSH #### [facility] [address] [place] [address] Dr. Nga Ribeiro Lymphocytes/100 WBC (Bld) 46.4 % Normal 20.5-60.0 [facility] Comment on above: Performed By: #### L IPID, CMP, T7, TSH #### [facility] [address] [place] [address] Dr. Nga Ribeiro MANUAL DIFF REQ NO Normal [facility] Comment on above: Performed By: #### L IPID, CMP, T7, TSH #### [facility] [address] [place] [address] Dr. Nga Ribeiro MCH (RBC) [Entitic mass] 30.6 pg Normal 26.7-34.0 [facility] Comment on above: Performed By: #### L IPID, CMP, T7, TSH #### [facility] [address] [place] [address] Dr. Nga Ribeiro MCHC (RBC) [Mass/Vol] 34.2 g/dL Normal 29.9-35.2 [facility] Comment on above: Performed By: #### L IPID, CMP, T7, TSH #### [facility] [address] [address] [address] Nga Ribeiro MCV (RBC) [Entitic vol] 89.6 fL Normal 81.0-99.0 [facility] Comment on above: Performed By: #### L IPID, CMP, T7, TSH #### [facility] [address] [place] [address] Dr. Nga Ribeiro MONO # 0.4 103/ul Normal 0.3-0.8 [facility] Comment on above: Performed By: #### L IPID, CMP, T7, TSH #### [facility] [address] [place] [address] Dr. Nga Ribeiro Monocytes/100 WBC (Bld) 9.1 % Normal 1.7-12.0 [facility] Comment on above: Performed By: #### L IPID, CMP, T7, TSH #### [facility] [address] [place] [address] Dr. Nga Ribeiro NEUT # 1.5 103/ul Normal 1.4-6.5 [facility] Comment on above: Performed By: #### L IPID, CMP, T7, TSH #### [facility] [address] [place] [address] Dr. Nga Ribeiro Neutrophils/100 WBC (Bld) 36.6 % Critically low 43.0-75.0 [facility] Comment on above: Performed By: #### L IPID, CMP, T7, TSH #### [facility] [address] [place] [address] Dr. Nga Ribeiro Platelet mean volume (Bld) [Entitic vol] 9.2 fL Critically low 9.5-13.5 [facility] Comment on above: Performed By: #### L IPID, CMP, T7, TSH #### [facility] [address] [address] [address] Nga Ribeiro PLT 194 103/ul Normal 150-450 [facility] Comment on above: Performed By: #### L IPID, CMP, T7, TSH #### [facility] [address] [address] [address] Nga Ribeiro RBC 4.51 106/ul Normal 4.20-5.40 [facility] Comment on above: Performed By: #### L IPID, CMP, T7, TSH #### [facility] [address] [place] [address] Dr. Nga Ribeiro WBC 4.2 103/ul Normal 4.0-11.0 [facility] Comment on above: Performed By: #### L IPID, CMP, T7, TSH #### [facility] [address] [place] [address] Dr. Nga Ribeiro FREE THYROXINE INDEX T7on FTI 2.66 Normal 1.30-4.50 [facility] Comment on above: Performed By: #### L IPID, CMP, T7, TSH #### [facility] [address] [place] [address] Dr. Nga Ribeiro T3U 36.0 % Normal 30.0-39.0 [facility] Comment on above: Performed By: #### L IPID, CMP, T7, TSH #### [facility] [address] [place] [address] Dr. Nga Ribeiro T4 [Mass/Vol] 7.40 ug/dL Normal 4.80-13.90 [facility] Comment on above: Performed By: #### L IPID, CMP, T7, TSH #### [facility] [address] [place] [address] Dr. Nga Ribeiro GLYCOHEMOGLOBIN A1Con 2021 ADA RECOMMENDATION SEE BELOW Normal [facility] Comment on above: Result Comment: ADA RECOMMENDED LIMIT 4.0 - 6.0 ADA THERAPEUTIC TARGET < 7.0 ACTION SUGGESTED > 7.0 Performed By: #### A 1C #### [facility] [address] [place] [address] Dr. Nga Ribeiro Glucose [Mass/Vol] 94 mg/dL Normal [facility] Comment on above: Performed By: #### A 1C #### [facility] [address] [address] [address] Nga Ribeiro HbA1c (Bld) [Mass fraction] 4.9 % Normal 4.5-6.2 [facility] Comment on above: Performed By: #### A 1C #### [facility] [address] [place] [address] Dr. Nga Ribeiro IRONon 10-30-2022 Iron [Mass/Vol] 119.0 ug/dL Normal 50.0-170.0 [facility] Comment on above: Performed By: #### I CHARISMA #### [facility] [address] [place] [address] Dr. Nga Ribeiro LIPID PROFILEon 10-30-2022 CHOL-HDL RATIO NORM SEE BELOW Normal [facility] Comment on above: Result Comment: 3.3 - 4.4 LOW RISK 4.4 - 7.1 AVERAGE RISK 7.1 - 11.0 MODERATE RISK >11.0 HIGH RISK Performed By: #### L IPID, CMP, T7, TSH #### [facility] [address] [place] [address] Dr. Nga Ribeiro Cholesterol [Mass/Vol] 201 mg/dL Critically high <=200 [facility] Comment on above: Performed By: #### L IPID, CMP, T7, TSH #### [facility] [address] [address] [address] Nga Ribeiro Cholesterol in HDL [Mass/Vol] 78 mg/dL Critically high 40-60 [facility] Comment on above: Performed By: #### L IPID, CMP, T7, TSH #### [facility] [address] [address] [address] Nga Ribeiro Cholesterol in LDL [Mass/Vol] 108.8 mg/dL Normal [facility] Comment on above: Performed By: #### L IPID, CMP, T7, TSH #### [facility] [address] [address] [address] Nga Ribeiro Cholesterol.total/Ch olesterol in HDL [Mass ratio] 2.6 {ratio} Normal [facility] Comment on above: Performed By: #### L IPID, CMP, T7, TSH #### [facility] [address] [address] [address] Nga Ribeiro HDL NORMAL > or = 60 mg/dl - LO W CARDIOVASCULAR RISK <40 mg/dl - HIGH CARDIOVASCULAR RISK Normal [facility] Comment on above: Performed By: #### L IPID, CMP, T7, TSH #### [facility] [address] [address] [address] Nga Ribeiro LDL CALC NORMAL SEE BELOW Normal [facility] Comment on above: Result Comment: <100 mg/dl OPTIMAL 100 - 129 mg/dl NEAR OR ABOVE OPTIMAL 130 - 159 mg/dl BORDERLINE HIGH 160 - 189 mg/dl HIGH >190 mg/dl VERY HIGH Performed By: #### L IPID, CMP, T7, TSH #### [facility] [address] [address] [address] Nga Ribeiro Triglyceride [Mass/Vol] 71 mg/dL Normal <=150 [facility] Comment on above: Performed By: #### L IPID, CMP, T7, TSH #### [facility] [address] [address] [address] Nga Ribeiro VLDL CALC 14.2 mg/dL Normal [facility] Comment on above: Performed By: #### L IPID, CMP, T7, TSH #### [facility] [address] [address] [address] Nga Ribeiro PROF 14(COMP METB)on 022 Albumin [Mass/Vol] 3.8 g/dL Normal 3.4-5.0 [facility] Comment on above: Performed By: #### L IPID, CMP, T7, TSH #### [facility] [address] [address] [address] Nga Ribeiro Albumin/Globulin [Mass ratio] 1.1 {ratio} Normal [facility] Comment on above: Performed By: #### L IPID, CMP, T7, TSH #### [facility] [address] [place] [address] Dr. Nga Ribeiro ALP [Catalytic activity/Vol] 91 U/L Normal 46-116 [facility] Comment on above: Performed By: #### L IPID, CMP, T7, TSH #### [facility] [address] [place] [address] Dr. Nga Ribeiro ALT [Catalytic activity/Vol] 19 U/L Normal 14-59 [facility] Comment on above: Performed By: #### L IPID, CMP, T7, TSH #### [facility] [address] [place] [address] Dr. Nga Ribeiro Anion gap [Moles/Vol] 9.2 mmol/L Normal [facility] Comment on above: Performed By: #### L IPID, CMP, T7, TSH #### [facility] [address] [place] [address] Dr. Nga Ribeiro AST [Catalytic activity/Vol] 18 U/L Normal 15-37 [facility] Comment on above: Performed By: #### L IPID, CMP, T7, TSH #### [facility] [address] [place] [address] Dr. Nga Ribeiro Bilirubin [Mass/Vol] 0.5 mg/dL Normal 0.2-1.0 [facility] Comment on above: Performed By: #### L IPID, CMP, T7, TSH #### [facility] [address] [place] [address] Dr. Nga Ribeiro Calcium [Mass/Vol] 9.5 mg/dL Normal 8.5-10.1 [facility] Comment on above: Performed By: #### L IPID, CMP, T7, TSH #### [facility] [address] [place] [address] Dr. Nga Ribeiro Chloride [Moles/Vol] 105 mmol/L Normal 98-107 [facility] Comment on above: Performed By: #### L IPID, CMP, T7, TSH #### [facility] [address] [address] [address] Nga Ribeiro CO2 [Moles/Vol] 29.5 mmol/L Normal 21.0-32.0 [facility] Comment on above: Performed By: #### L IPID, CMP, T7, TSH #### [facility] [address] [address] [address] Nga Ribeiro Creatinine [Mass/Vol] 0.68 mg/dL Normal 0.55-1.02 [facility] Comment on above: Performed By: #### L IPID, CMP, T7, TSH #### [facility] [address] [address] [address] Nga Ribeiro EGFR-AF DJIBOUTIAN >60 Normal >=60 [facility] Comment on above: Performed By: #### L IPID, CMP, T7, TSH #### [facility] [address] [address] [address] Nga Ribeiro EGFR-NON AF DJIBOUTIAN >60 Normal >=60 [facility] Comment on above: Performed By: #### L IPID, CMP, T7, TSH #### [facility] [address] [address] [address] Nga Ribeiro Globulin (S) [Mass/Vol] 3.6 g/dL Normal [facility] Comment on above: Performed By: #### L IPID, CMP, T7, TSH #### [facility] [address] [address] [address] Nga Ribeiro Glucose [Mass/Vol] 100 mg/dL Normal 74-106 [facility] Comment on above: Performed By: #### L IPID, CMP, T7, TSH #### [facility] [address] [address] [address] Nga Ribeiro Potassium [Moles/Vol] 4.7 mmol/L Normal 3.5-5.1 [facility] Comment on above: Performed By: #### L IPID, CMP, T7, TSH #### [facility] [address] [address] [address] Nga Ribeiro Protein [Mass/Vol] 7.4 g/dL Normal 6.4-8.2 [facility] Comment on above: Performed By: #### L IPID, CMP, T7, TSH #### [facility] [address] [place] [address] Dr. Nga Ribeiro Sodium [Moles/Vol] 139 mmol/L Normal 136-145 [facility] Comment on above: Performed By: #### L IPID, CMP, T7, TSH #### [facility] [address] [address] [address] Nga Ribeiro Urea nitrogen [Mass/Vol] 19.0 mg/dL Critically high 7.0-18.0 [facility] Comment on above: Performed By: #### L IPID, CMP, T7, TSH #### [facility] [address] [place] [address] Dr. Nga Ribeiro Urea nitrogen/Creatinine [Mass ratio] 27.9 mg/mg Normal [facility] Comment on above: Performed By: #### L IPID, CMP, T7, TSH #### [facility] [address] [place] [address] Dr. Nga Ribeiro TSHon 10-30-2022 TSH 0.871 uIU/mL Normal 0.358-3.740 [facility] Comment on above: Performed By: #### L IPID, CMP, T7, TSH #### [facility] [address] [place] [address] Dr. Nga Ribeiro Covid-19 PCR ([facility])on 10-01 SARS-CoV-2 (COVID-19) RNA [place]+probe Ql (Unsp [...] for this test is supported by the [place] of Health and Human Service's declaration that [...] used). Performed By: #### C VDTBH #### [facility] [address] [place] [address] Dr. Nga Ribeiro INFLUENZA A AND B AGon 10-[facility] SEE BELOW Normal [facility] Comment on above: Result Comment: Nega tive for Flu A protein angiten. Infection due to Flu A cannot be ruled out. Flu A angiten in the sample may be below the detection limit of the test. Performed By: #### L IPID, CMP, T7, TSH #### [facility] [address] [place] [address] Dr. Nga [facility]ibe[facility] BEL[facility] Normal [facility] Comment on above: Result Comment: Nega tive for Flu B protein antigen. Infection due to Flu B cannot be ruled out. Flu B antigen in the sample may be below the detection limit of the test. Performed By: #### L IPID, CMP, T7, TSH #### [facility] [address] [place] [address] Dr. Nga Ribeiro INFLUENZA A AG Negative Normal NEGATIVE SEE COMMENT [facility] Comment on above: Performed By: #### L IPID, CMP, T7, TSH #### [facility] [address] [place] [address] Dr. Nga Ribeiro INFLUENZA B AG Negative Normal NEGATIVE SEE COMMENT [facility] Comment on above: Performed By: #### L IPID, CMP, T7, TSH #### [facility] [address] [place] [address] Dr. Nga Ribeiro INTERNAL CONTROLS Within Normal Limits Normal Wi thin Normal Limits [facility] Comment on above: Performed By: #### L IPID, CMP, T7, TSH #### [facility] [address] [place] [address] Dr. Nga Ribeiro MRI Shoulder w/o Lefton [...] by Maulik Stewart on 10/02/2022 1335 Normal [facility] [employer] MG MAMM SCREEN 3D ZARI CADon 06-16-2022 MG MAMM SCREEN 3D ZARI CAD Patient: CONY MATOS Exam Date: 06/16/2022 : 1960 Gender:F Ordering : DR ANDREW STAHL . Admission #: [id number] Family : Order #: [id number] CLICK HERE TO VIEW EXAM RADIOLOGY REPORT [...] Treatments Excision Family Cancers None LOCATION: [facility] BREAST COMPOSITION: Scattered areas fibroglandular density. [...] Owen Nixon M.D. on 06/16/2022 at 13:28 [facility] PAP ACOG PANEL 2: 30 to 65on 05-30-2022 . . Normal [facility] Comment on above: Result Comment: Perf ormed at: WB Performed By: #### L IPID, CMP, T7, TSH #### [facility] [address] [address] [address] Nga Ribeiro Age Gdln ACOG Testing 30-65 [facility] Comment on above: Performed By: #### L IPID, CMP, T7, TSH #### [facility] [address] [address] [address] Nga Ribeiro DIAGNOSIS: Comment Normal [facility] Comment on above: Result Comment: UNSA TISFACTORY FOR EVALUATION. Performed at: WB Performed By: #### L IPID, CMP, T7, TSH #### [facility] [address] [address] [address] Nga Ribeiro HPV Aptima Negative Normal Negative [facility] Comment on above: Result Comment: This nucleic acid amplification test detects fourteen high-risk HPV types (16,18,31,33,35,39,45,51,52,56,58,59,66,68) without differentiation. Performed at: =G Performed By: #### L IPID, CMP, T7, TSH #### [facility] [address] [address] [address] Nga Ribeiro Methodology: Comment Normal [facility] Comment on above: Result Comment: This liquid based ThinPrep(R) pap test was screened with the use of an image guided system. Performed at: WB Performed By: #### L IPID, CMP, T7, TSH #### [facility] [address] [address] [address] Nga Ribeiro Note: Comment Normal [facility] Comment on above: [...] TSH #### [facility] [address] [address] [address] Nga Ribeiro Performed by: Comment Normal [facility] Comment on above: Result Comment: Kolton Carpio, Industrial Services Worker (ASCP) Performed at: WB Performed By: #### L IPID, CMP, T7, TSH #### [facility] [address] [address] [address] Nga Ribeiro QC reviewed by: Comment Normal [facility] Comment on above: Result Comment: Adore Sloan, Supervisory Industrial Services Worker (ASCP) Performed at: WB Performed By: #### L IPID, CMP, T7, TSH #### [facility] [address] [address] [address] Nga Ribeiro Recommendation: Comment Normal [facility] Comment on above: Result Comment: Sugg est follow up as clinically appropriate. Performed at: WB Performed By: #### L IPID, CMP, T7, TSH #### [facility] [address] [address] [address] Nga Ribeiro Specimen adequacy: Comment Normal [facility] Comment on above: Result Comment: Spec imen processed and examined but unsatisfactory for evaluation of epithelial abnormality because of insufficient cellularity. Performed at: WB Performed By: #### L IPID, CMP, T7, TSH #### [facility] [address] [address] [address] Nga Ribeiro Coding Summary.on 12-30-2021 Coding Summary. CD:[id number] 0bWw+PGhlYWQ+PX5AFWTwQ 40qqMDjfE8HY7rWSB0MMQG WFLDYUD6NMI1goZQ9DBqqF 2VybiAv PsvtdZUsEQ05RHh8KPA7pN jrUAvcwL0tnQKhR5s7TlAt ZI04fU62MUnpSZBkZkB3Gm ZpbjsgbWFy Q4coStWbcUZsTmg+PHRhYm xlIHdpZHRoPScxMDAlJyBz xTzoDY4cSg1iISTeMJOpaW xhcHNlOiBj y6xhQTGmKMwiVL5uaJpdR5 VzxRX3EERcs0s9Ae55sCU+ VLVzSHO2eXxeIQxbl369At Uxo0sbDZO2 uNAeCVcaMLP3W53hp9J6OZ OuQSFdLXU9jOF5lJ6mfYra gcqbI5AmoTBdYjL0GUH6yX LaoC9ksFyp zscylA9kHyy+W30GLX7XRB VXOE6KIjo2I4ZeFrhqkIX+ NT26SEFxJF31pALaqTOrl1 garHx4UmUz BXSwJAH0gEsrUYcjf0GxWK RbS77ekSJkp2M4XJZehElt iTTjNvKuuTS9yE2nFPyaqv mlg0lkzttm Odzjw5rhdt89dS20X89hMM nkJRGoPGY4VQZaXDUycCww ol4nrX6fDt9+EXcft1xbd5 ebgZl4PlTu XCDkjyGrqTsiFDW2c7PzUs 40G0IwrDfuw7QcWyx7gw43 gPOqx7X4sBC1VBvvWWQatI 4tPHdpYdU5 DJKoWnXkhA10eNFyRUetCo 6ldXncfNywPG7gGFWutldl HSLkxQ9jEKAxhGNmdVweUH 4wNTBpbjtm d894YyUfKAB4XWBakSZkP1 XaeN1wEhRiUASmEKVxA3Af yEBuQFukU885ZMkoBlG8VQ KrujHiV7Lm UNLznEvqRwA3d6T0Jw3Xj5 RuqkxaYGO4SCmdRIKvFtId KbOhTiV6G6IvThc5ZFFqtU vrDS4qB0Gr CXThjlpbarfylBS9AYNeMA IucB51jOTzEImcOv7an2D4 d725SDRiQJXfoG40Tf5voZ ogMTBwdCBU oS0zakmhq6bccvaxOcUdSS YfENf2ZTw1YWLiaBltJsNz AOY1XbW7DNT5xYQstQ5pjG apvmzeqZ2q Oyc+A99bqC6cLKF3WSC2rx ndKKMvnbErGQ98TX35S4Fz PjwvdGFibGU+PGRpdiBzdH ufWX0xTsId z5asc8AvWMgjT8MsZUEpRJ mbRhp4HRZiSZZ1aKR3cL7l ERZsTXlaf7T0oEM4Z1Kacw Syxn3vq2iz XYVaCFqfR59gdWNty6V0EB MleSB8WHCauJgnElRbxE91 Oyc+OKNfdDcts2JiHomhi2 xfp0cdwLz6 TuXwJEWlnxLrhFuvYPX5l0 YkOn78A12jKVtdGVRmMSDk BZBpXESghXtgsi9rtD5kOu 8+PGNvbCB3 oVT7gX8iXAGeYmX4LSqrV4 76NsVwcMToHcdmw7rgx5af mTj5FsDwVZVpzmZkbJolVQ D9g3OjRu20 U33lVLlmMVWjSJLqDIZiEM RogQxvpe5pgR1rSw1+PC9j i1lzxv42xR99xYI+PHRkIH N5pWtzTTuo UTPnuI9sHEjlAdH0LATdSr ClnV86nQLqMCpfGp7ziKig fDvrRP3xPZQmzevrm164Hu Eul7dbDANw tABmSIcbMXK9U93jt7A3FN UfUAGiXVB2rXX3eD5mbOdc bjogbGVmdDsgdmVydGljYW npYQxvT430 IHRvcDsnPlBhdGllbnQgTm HbFTw1F2QeMpa8POCqzVvt LF2mhMGbXNymUw4aqLjbsB vvLU8kUJUq apsjf770PsYlp8hbGPVezL NpOOyzBDE0B36az1N2TMUi KISnJTJ1lTZ2aV5hxRtvkb ogbGVmdDsg frFmqIhsMZzjDLsgJ934CY RvcDsnPkJpcnRoIERhdGU6 UY59FU75yEUgk9Q3cKS6T8 BhZGRpbmct nivhmVE1NRKkLOXblX74On 3wdDzfEv3uARAoTST8LXEe gQGcE7HjjD8gInYbDGJxPP JbC7AfuFRj PKzmE798BJbjNrO5ZEWisb DbO3DuPGCvqYacZzZ5z6B8 Pw7YF1B6IM32VY87iAShf3 D0aZY6O8Iu ZCSbnlnxvnbdsWX9NHQlAJ XbsP26Fn9wyCbeIz1dHPMp WAZ7SKXrpJYiF0JiqX6dUk AjMDAwMDAw Y3BhxPOiMDrmQ658ZJjsEr S8AHDilkJmD0JhARXifRdw GeI3c8P6Sl1RDLz0DG24FQ 13gJOcv0V0 tTU2B5LkBYDmfaqdgcyloC Z8JIZcQZSwbS66Gs0ezKuo Dk0dUUQzHHJ3OUVbhMDvB3 DeeY3hSuWh PRYkABSqA7WagRSeXTvsV9 67VHxtRqZ0ZEPfzuJiB8Zq DDSmbQrvYjU0s3E0Wz4TDH MmOA13DVT3 hON3JN50UF75U9CpThfvaA FibGU+PHRhYmxlIHdpZHRo LObkUOKpInAbmSduRV9eVd 9yZGVyLWNv xRrciFWdNwOwv9tmOCKhLA mkVM1sbZhlB8MeiVF6WXDe g7o4Ex09L58gY0WbjPS+PG ChmUD6oXD0 sO7uXxTkGxZ4PSyvU732Jn CmaQLbCxjat5thc8rfaTf3 FbV3XPCsxoQihJspZZQ6d7 VuOf99I58i IHdpZHRoPSIxNSUiIHZhbG xnau6qyT7dCf3+PGNvbCB3 pYD7dD1lAwCtHsM5TRyjP1 49InRvcCIv Jxefo4pro0haoLa4DnQuSF LtfnVyzVszUDO6l0NwGk60 Y5QtiEvpd2ZdSxc5kl25jM Aic9A7zDP0 J2OyMUVprwyldARcmLtpAX 6sAUTwpqagXEWzdD4vRQZy T2c2WcHaMsQ0QRidI3Xgqg O8KQZovYWr ZAfdWLB3L59xc5S9QHCnLU PzSWT5fMA3yC5aaDdvwycm bGVmdDsgdmVydGljYWwtYW pvN959IMCu hRkuLMBigQ7zKSFipSStvJ huMK9rDWZrqtmvTq3VMCWZ UiwgQkVUVFkgTDwvdGQ+PH ZnVPB4kUka ETdhQSVjkS6kPARrT1s1Zs LfRsC4CPysR2KrEBGjahzl Zd14xS3oNiCvHeA5FWlzF4 CqrvV3XKDg oSJlNUlaDSE8H56bn4D1TA AlWFQvOQV2eKF7yP4krRar bjogbGVmdDsgdmVydGljYW jgTPfxH586 OMOxoJzmJmSeIrN1HiG7Jf Q6C3BfXpb9TPPsiIfqYN6h zHGhUHcsYd9ekHjwzXzaCL 4wNTBpbjtw UXBmmW8hOIHhwNJwnHyyQJ 8yHQLflkaoh762MeAkEIL1 PAKpjHBcP7SkyP4yIsImBE ZvKKRzG2Sl rRJkYZvuS218ASxyRyU0CE CbtuQfV7VxMQZljUdvUzN2 g6O2Gr96ROPMPCZgyfkxtA Q+PHRkIHN0 bHvuUEfcPSDlhO8gGLWdB4 v8PpLvCvM1JRzcF8ApZTPd qnbrTd72wL4nRcYnEtN2BI cdN0UnzjC9 LTKouPWuNErkLAF0B15xy3 R7ZWGxQFWnRMN3pHX4tV2u bGlnbjogbGVmdDsgdmVydG ljYWwtYWxp X007IKBgxCvsFeHucMRhBX wvdGQ+QLFjUXB8gPvuYRxs BQBctJ0qGEFuO7a2DuGkKi W2CMwmO4Vk DGRyudzuUm88eW4kHdTzHm M1XCbjF0SgxgN2GTCdkAYm IBamXSJ1M21jk3H1SXTfHW DtCWX6kUI3 iX9miMhxdowyoAMtnVlczp EjqFprPCllFEymM364IKTk vAsySc28fDRckIcfsvT6K8 RkPjwvdHI+ PZ74MVAiFQ21wQRnoHQyg4 ozbRv8XmJjDXDqVFZ0rPst OLcfk1AjUQYeM72ycHTlj7 L3JZXdiQuh rWSxVbPntEH4mS9uIYrtvt gbd1mldnuaWdneq8dpyw48 aQ85P85oQJqqDAPrPDUoOI UiIHZhbGln jr1krH8qQb1+UHZiqNP3tI M4iO6oGaAhMyG6QRxjV469 OaRzwVNiRbscd3ucq0onnJ i3RkYaVPAs pbQdvIkyTAT4h7NrPr16T5 9sIHdpZHRoPSIyMCUiIHZh oFectk6dlX0hSw5+PC9jb2 mjfi03fQ51 dHI+CWQtFGP4rLrcMLvyML RofO7mOBuuNkL0IFFsFdRa oF67cXFgTPvfWa6zxUkgvM shVW2sUNEs cujpl169RrJbt1sbKZJgqZ VsCYcuSVV7Q67wf7R5UKVy ILEzMLD8iKZ7mZ2ksWifib ogbGVmdDsg soEkvNwtULwtLDzhN382XJ AimPgbWjTvuRUdI9cnjoJK CO4uFmlvrYE+VECqKIE3mY xlPSdwYWRk vV0bCFTkM7o8HrKyIoC3TD acR4BatbE9OYHzpOPqFUOp ePBGuP9sfnese4axvxcwYo AwMDAwMDt0 EGc5SDBebHhySwAvAXT3Yq D0ASB4bYNyvH8dlOqswmvf jC7nLeb+RklOOjwvdGQ+PH BxWSM6vZup PUnvIGCuhE3oCQUhJ2s7Iy JsWhM4UWivC1OutfZ6PQCb mAIbBWRbdKVFhE1hvakoz4 xvcjogIzAw CRKtVNs1HUw8HPUyhGnlUk JiQCM7CgF6RYD6tJWxmA0q aZhbirciiP2yEzu+TVJOOj wvdGQ+PHRk HUA4sPdbJDznUUUkhK0rVA OdW2j0AjXtTgX6BFwwK6Bo opX2MTQevGVgQKPcwPEWtY 0tdcorj4pi rycjAgMpNNReRLw9IDf1HV JugShkShRvAFM3UkF8MKA1 kGFtgF7nuEkgussnqY0kCf c+RTH6LFP4 LK11RZ23P7YaLrnrqLBdtL U+PHRhYmxlIHdpZHRoPScx WELzMpQjlIwxQW6rLq8pWZ VyLWNvbGxh cHNl (more content not included)... Normal [facility] Coding Summary.on 12-27-2021 Coding Summary. CD:[id number] Gh 0bWw+PGhlYWQ+RD1VNGFfV 60poMIlhZ3MI2mDBP9FXBE YZSQAKJ0ACQ2cqJE5IIqiJ 2VybiAv IynvyZHsSN41KRw6GFN8sH deYLiigO1xgENhO9u4CrJe UV27nT34DRieJWMeBnI4Zj ZpbjsgbWFy Z9igIjPiuVGsLii+PHRhYm xlIHdpZHRoPScxMDAlJyBz tZaxPU4lVk8bYLQoSRZqmS xhcHNlOiBj z0veAODaZBdaFM5ncXigV0 GfoCS5YCKpi1m2Qu42eMF+ TBVrGYX9wEfeRWzjr134Ce Qhz8hgGOZ6 fTUxTQtpCYI1W73ga4V7KJ ZcKQHzJQJ3nEV1eN1gwIux dsitX2IveSFyCuE5DGV0pJ EuaC5utEjp idplfQ7eVrw+M45OXC7ICO FNFJ6FAke4Y5PtJjkqxLR+ GU12LDXzMU00rNEclWEkh7 ljbWy9AoWm UZMnABZ0mKuqOZbug1AxOE JlT91icGWws2Z3AXYxvSaf oMGxCtKloTG7gZ5qDZhyba frl1icglwr Hcwus5vzcd58yA90E11hJP pbKCSbCYI8EIGtFBTluNsl jl6owL8qVd8+TNobg4fbu8 vzxVv6MpRk BBKqydYoiLfiAGC0z6MqXr 68T8ZwyXsgl9MmDdb8ff68 wHFlw1D3uXO3VYkbVNGgtN 6vVIvaCvC1 ADEyCzPsqH44lHAeRQbyXf 2idSpvpDasCS1eORGmrhbo AUFvtY0zKPSzdASrgYliTN 4wNTBpbjtm h324RlGkTTM0LNOcpKGrK3 ZfdC9wQcHmQZQcJGJjW1Ug rOAiLFixI234ERpzWbY6BV LfhwCgA7Bh ENAieNyaQkK9e7S6Gv1Uv0 YvamimXOL5TWgvGVJoVzG5 XsYxKwO5Q9CbMhu7AQAygH qhLZ6fJ1Rt QWMcdqovasdvcRH4SVDtAE QesA71nTPiVVogOq8zk5Z6 i042MSEnAJOpuE87Sb4sfS ogMTBwdCBU aL5yftzam6yprvxeRyQfEH PsUSg6TFi6BTYzdLjxWtSg YSR5KxZ8SWS7bLShuB7bhY vykcqedP1c Oyc+Y53ndV4qZCR0PAT5fq hdXTMkeyEtHK02DS37Y5Am PjwvdGFibGU+PGRpdiBzdH wqJP8fQrXk m7tnx2MtFLjuB0BdICXrUI znClg9RDAgZIC7sUX7yS9w ZLDdCBewh2R8tRW5Z8Fkiw Yank1qx2xs DDWnMPvhW10kpVYia7D4RO ZkoMC9EZVowJknQqTumF41 Oyc+LGAsyBzwq2FnYfdwz1 vqi5sqrZd9 JhPuSOBxtxSpyZniLON4r7 OgXc90J86hFElhDDIoKSJl SOAkAPIhjNfkel6dvE8iGp 8+PGNvbCB3 iVY0wI3wTJSmWvM1RGfiP4 86CjNmiIBbTgimg4dga7aj lYc2AsJxFMJurhVxbLctVQ M8t2HaNi51 T55uKFvaANUkCXMtCVJbGM FmjFhoan7wzO6wMi5+PC9j r8drki53rR47zHA+PHRkIH P8iVyxKDew YHUwfT2gOHigUyT8XFOhGg HmaX68lJPhJFogYk6pjJym hLigBW1dJOFxszlyi158Cs Cai1akCLCm lYIaUCwxIGJ7L70rb0W0FW ZmVJMqAGH1iRR4tR5isWmj bjogbGVmdDsgdmVydGljYW mxQTdvK724 IHRvcDsnPlBhdGllbnQgTm IgNZs5A6NxCqn1TJYhcHhu EV8yaJEjJLcoZc4twMetiK bmRL7gWBIc rxoxv572ItWsq5fgESCabC BaZZqlFOF6X52sh9I2PEUq CVJyGNB9hCA7hY0nwJhzqq ogbGVmdDsg siKwtApiDZrjEMjkE851EB RvcDsnPkJpcnRoIERhdGU6 BI40XP04qCLyy4F4gVV5K4 BhZGRpbmct kdqyiYN3GKFkHNEdsP00Ls 0bvIjfSr5aYYXiCWX0JUNf nXJjZ9EmdL1jEeVnIMFpQN XnV3IiqGAu WTfjW041TQowGrN3ZGAlsh DaD0UoPXOxvBkjAlM9i8Z3 Aw9EZ8V1PF17JH10iPKdf2 W4iPG1I1Wj UYCvpmdhjrjxuVB3XATjLQ CyvF51Dc6ikYcoGw2iUXQz SFX0PXCxmRRiO5DmfY4iJy AjMDAwMDAw W0PjnKYuYCeyP043MUdpRr E1PZYitqGrR0YwYTDtcNxf WfF0j9I9Wd5WYYf1FA53GL 66wEStr1I0 uGB2S0UoSXNryjcqzvhqjL E8SRIbZYImuG90Cv9epIul Nh5mSFTdBJJ4WHQmqIKmC3 NrdO2jYiPj IILqOTNyO4GakHUaCOjmU0 46SHgaQjG1VSLtnkMiR9Jx RHKdeHspDuI3j8X2Xc1RJL FwOD23GFJ2 sKX6RC50BY17Y0VwGsialU FibGU+PHRhYmxlIHdpZHRo ILxeQKJwHmKblQfsSS9hQk 9yZGVyLWNv lEjblEJmNqLnt2bkGCJaGM xcHV7inCrnW0ZzaSA1FZQs t9u1Tk79N45eZ0MxmBV+PG NhuFJ1vKM2 kM2eMtFdHbR5DTvtI097Nv OzmWFzBfssp6vtj7hriLm6 CkH6NVCpxtLoaTrpSUE2b2 ZvTg07D98x IHdpZHRoPSIxNSUiIHZhbG phko8piK6dQt0+PGNvbCB3 nFC0mJ9mQuGeYfK9LFtiC0 49InRvcCIv Khaau9oag0uidSl4QvBbNL CmjeQnvGfpCPF6x9QcBc01 O1CqsLddy3XbSxl9gc98pM Csu6O1gGH6 E7IxBJJriuljuLPznHujWV 0mOBYavserCDUbkJ2xSJBg V6g3QxTsIhM6WSvpK3Fmis F9VPLrwUMl UPsaVNH1M91qb0X2QHAvKM DeKFJ8iMK5gV8hyErkhjny bGVmdDsgdmVydGljYWwtYW jbR382FFTj jUwiUBBhjX4mYEXczPIccE byDA5sEZTlduquIk2BGEYV UiwgQkVUVFkgTDwvdGQ+PH IhWNO1yNfo TEpwWZJwuD4tIEKyF8z6Hw WwOpY8JTioI7LsWCOxqlbk Rc39uT1yIxXwLcF7EEeoN4 BfzvF4TLGb fQMsVOgmQPY7N71dw5O7GO UjUVRpKDU9mBB8zI7qjFuu bjogbGVmdDsgdmVydGljYW utAAcuO061 CLDvtNesYuHjHtF9AvT0Xs Y7Z5RsXwh2QTEviAcnQO6m aHIlXPdqSb4tjYunbMxlYT 4wNTBpbjtw EHMqvW2nDZTnuKEkaJefSM 0uWLSomxuvl776BtJlIGX7 MWRghDYaB2KoaU4eNzOlLR AhHDYpK5Rt iKVkKFudY218JVypBlM7GV PzhiWcI8GbBQQfsLetAlY8 i6B4Vu09BEWHFQTtteplhX Q+PHRkIHN0 iUnwFIzvKFWilC3wPWDnF8 q2QnTlAkI0FPygT8FqMJNf zpykJa52vA7eAvJlHdQ4HS prG1McdhJ8 MHMhlHFmMOrsAIV0E26er3 V2VCNcIUEvWCS6qKO4qL0u bGlnbjogbGVmdDsgdmVydG ljYWwtYWxp D181GKHlbIaiCbVthJMrRI wvdGQ+EKOoGCW0bAvlDIuj GBOsrW1jILYuA0s5UuCsVc S3LUolO0Hm NFNjpuwpYt19xU4wJqLkOp T1ZDtkT0MhgaX8BQEqyRMe SSypBKV3P59ll2E3KTArXK YqDVO6lBQ1 rA2teHsyxywegULorBiswp NjtDntWUhkRIwxR072DVDe cBufZl67gZEsfSiltwI6W8 RkPjwvdHI+ QO95YRSyEY36dSHpwTJmn8 aokUl1TlWkQIHpKSS0bWsv RLllm5ZbCYFpW94quDGnd5 H7BZZteEvj iNRuZuLeiIE6gK1eBFhaox hhb3fpehptDgnwl1szdv16 oE84W39yGTimXWOgNQXuRQ UiIHZhbGln vl5spC2zVw0+LZEzlQW1rL F2iH3pMjAiOjQ2IZdvC268 IuLcgIKzXdzes0zqw3pdoU l9SgZmMAAj crXdaTssNTM6s3SkCv33Q7 9sIHdpZHRoPSIyMCUiIHZh hHpzbg8abH4nIk8+PC9jb2 zcdd93qY08 dHI+WOEuGYE6uPjcBYcwAV FmkN4bHLdjLfI8WROzCrDq rJ40uGQfWStsAg1vfObacM glUA8kILVo wwrcp682FxZpp5ijPKCdpL TeHXzeMKI5U55js5D6QLHm NCPlYGG8pUR8hT2xoOleth ogbGVmdDsg krXcfPybQQmeBRkgV713AB CsgXcpJbQfhHTsV4nsdyXJ DC9rOwjvcFE+TYXkQWK9oV xlPSdwYWRk kK0zIJAtM6s0RkYcArS0YI ykR6DesyB1IKFkxCDaHGLl fEOBiS9uotimw2qqogjgKk AwMDAwMDt0 BLz0HUCmdMvrPlEiLZV0Zw Y5DFW6zNFdpX6avOykkxyv tL5lJzd+RklOOjwvdGQ+PH FtLIZ3pEzx JWsxRUWopM5mJJElU1c8Hf GiEhF2FAcaW3UtolV5MOGq hYUcJCOfaBANnI5csggvx4 xvcjogIzAw VLAqOOx9NOy2ZUDegIwlGt UpMSY3ZuR2GND7cIUnrI7w fUhlcdkwoZ7bWen+TVJOOj wvdGQ+PHRk MAP9iUfjMNajPBMvyV9hHE WcB6e0LiDcHmB8NUfjZ6Wm fjD5LFVgsTEvZJHjtOBOxK 7djgyym5ta mvirAzQzYWNgHOn4XCg9SS XzeHkzEdCeDIO4SzG7FZB7 tXYooO5xiDlijgegyB5eSk c+OHQ3YNC5 TU62BZ98K4VuKhhhaXHeoF U+PHRhYmxlIHdpZHRoPScx ZVXzSuObnZrlOY1sRn3dTK VyLWNvbGxh cHNl (more content not included)... Normal [facility] Consent for Treatmenton 12-01 Consent for Treatment [id number] 0CD:127 Normal [facility] BMPon 12-19-2021 Anion gap [Moles/Vol] 14 mmol/L Normal 6-16 [facility] Comment on above: Performed By: #### 1 [id number] #### [facility] [address] [place] [address] Calcium [Mass/Vol] 9.6 mg/dL Normal 8.9-11.1 [facility] Comment on above: Performed By: #### 1 [id number] #### [facility] [address] [place] [address] Chloride [Moles/Vol] 105 mmol/L Normal 101-[address] [facility] Comment on above: Performed By: #### 1 [id number], [id number], [id number] #### [facility] [address] [place] [address] CO2 [Moles/Vol] 27 mmol/L Normal 21-31 [facility] Comment on above: Performed By: #### 1 [id number], [id number], [id number] #### [facility] [address] [place] [address] Creatinine [Mass/Vol] 0.9 mg/dL Normal 0.5-1.3 [facility] Comment on above: Performed By: #### 1 [id number], [id number], [id number] #### [facility] [address] [place] [address] Glucose [Mass/Vol] 95 mg/dL Normal 55-199 [facility] Comment on above: Result Comment: If t his glucose result represents a fasting glucose, interpretation should refer to the following reference range: 55-99 mg/dL Performed By: #### 1 [id number], [id number], [id number] #### [facility] [address] [place] [address] Potassium [Moles/Vol] 4.3 mmol/L Normal 3.5-5.3 [facility] Comment on above: Performed By: #### 1 [id number], [id number], [id number] #### [facility] [address] [place] [address] Sodium [Moles/Vol] 142 mmol/L Normal 135-145 [facility] Comment on above: Performed By: #### 1 [id number], [id number], [id number] #### [facility] [address] [place] [address] Urea nitrogen [Mass/Vol] 23 mg/dL High 5-21 [facility] Comment on above: Performed By: #### 1 [id number], [id number], [id number] #### [facility] [address] [place] [address] Urea nitrogen/Creatinine [Mass ratio] 26 No Units High 10-20 [facility] Comment on above: Performed By: #### 1 [id number], [id number], [id number] #### [facility] [address] [place] [address] CBC w/Indiceson 12-19-2021 Erythrocyte distribution width (RBC) [Ratio] 13.3 % Normal 10.9-14.2 [facility] Comment on above: Performed By: #### 1 [id number], [id number], [id number] #### [facility] [address] [place] [address] Hematocrit (Bld) [Volume fraction] 38.6 % Normal 34.0-46.0 [facility] Comment on above: Performed By: #### 1 [id number], [id number], [id number] #### [facility] [address] [place] [address] Hemoglobin (Bld) [Mass/Vol] 13.6 g/dL Normal 12.0-16.0 [facility] Comment on above: Performed By: #### 1 [id number], [id number], [id number] #### [facility] [address] [place] [address] MCH (RBC) [Entitic mass] 31.1 pg Normal 27.0-34.0 [facility] Comment on above: Performed By: #### 1 [id number], [id number], [id number] #### [facility] [address] [place] [address] MCHC (RBC) [Mass/Vol] 35.2 g/dL Normal 31.4-36.0 [facility] Comment on above: Performed By: #### 1 [id number], [id number], [id number] #### [facility] [address] [place] [address] MCV (RBC) [Entitic vol] 88.2 fL Normal 80.0-100.0 [facility] Comment on above: Performed By: #### 1 [id number], [id number], [id number] #### [facility] [address] [place] [address] Platelet mean volume (Bld) [Entitic vol] 8.2 fL Normal 6.4-10.8 [facility] Comment on above: Performed By: #### 1 [id number], [id number], [id number] #### [facility] [address] [place] [address] Platelets (Bld) [#/Vol] 231.0 E9/L Normal 150.0-500.0 [facility] Comment on above: Performed By: #### 1 [id number], [id number], [id number] #### [facility] [address] [place] [address] RBC (Bld) [#/Vol] 4.4 E12/L Normal 4.3-5.9 [facility] Comment on above: Performed By: #### 1 [id number], 8170746, [id number] #### [facility] [address] [place] [address] WBC corrected for nucl RBC Auto (Bld) [#/Vol] 4.5 E9/L Normal 4.0-11.0 [facility] Comment on above: Performed By: #### 1 [id number], [id number], [id number] #### [facility] [address] [place] [address] Consent for Treatmenton 12-01 Consent for Treatment [id number] 0CD:127 Normal [facility] Physician Orderon 12-19-2021 Physician Order [id number]. 00CD:127 Normal [facility] XR Chest 2 Viewson XR Chest [...] V. Transcribed by: DELICIA Technologist: RH Normal [facility] eGFRon 12-19-2021 GFR/1.73 sq M.predicted among blacks MDRD (S/P/Bld) [Vol rate/Area] mL/min/{1.73_m2} Normal >=59 [facility] Comment on above: Order Comment: Order added by Discern Expert. Result Comment: eGFR is race adjusted. AA=. Performed By: #### 1 [id number], [id number], [id number] #### [facility] Laboratory [address] [place] [address] GFR/1.73 sq M.predicted among non-blacks MDRD (S/P/Bld) [Vol rate/Area] mL/min/{1.73_m2} Normal >=59 [facility] Comment on above: Order Comment: Order added by Discern Expert. Result Comment: [employer] Resource Teacher kary kidney disease could be indicated at eGFR's of less than 60 mL/min/1.73m2. Kidney failure is indicated at less than 15 mL/min/1.73m2. Performed By: #### 1 [id number], [id number], [id number] #### [facility] Laboratory [address] [place] [address] Physician Orderon 12-06-2021 Physician Order [id number]. 00CD:127 Normal [facility] RAD - MISCon 11-04-2021 RAD - MISC [id number]. 00CD:127 Normal [facility] MR knee RT wo conon 08-30-20 MR knee RT wo con [place] [address] MRI Report Signed Patient: Cony Matos MR#: [id number] [birth year] : 1960 Acct:[id number] Age/Sex: 60 / F ADM Date: 08/30/21 Loc: [facility] Room: Type: [facility] Attending Dr: Jose A Petersen [...] Jamarcus Prado M.D.08/30/2021 11:36 AM Dictation Location: [place] [address] Transcribed By: [facility] 08/30/21 1136 Dictated By: Jamarcus Prado II, MD 08/30/21 1120 Signed By: 08/30/21 1136 [facility] XR knee RT 2Von 08-22-2021 XR knee RT 2V [facility] [place] [address] [place] [address] XRay Report Signed Patient: Cony Matos MR#: [id number] [birth year] : 1960 Acct:[id number] Age/Sex: 60 / F ADM Date: 08/22/21 Loc: [facility] Room: Type: [facility] Attending Dr: Jose A Petersen [...] Jamarcus Prado M.D.08/22/2021 1:26 PM Dictation Location: [place] [address] Transcribed By: [facility] 08/22/21 1326 Dictated By: Jamarcus Prado II, MD 08/22/21 1325 Signed By: 08/22/21 1326 Normal [facility] Cardiovascular Lab Reporton 05-17-2019 Cardiovascular Lab Report [facility] Patient Name: Cony Matos MR #: [id number] Department of Physician: Rico James M.D. Division of Service Date: 05/17/2019 Cardiology Birthdate: 1960 Adult Cardiovascular Room #: [place] [address] Cardiovascular Laboratory Report INDICATION: The patient is [...] signed informed consent. She was brought to [employer] in a fasting state. The right neck area was prepped and draped in usual fashion. Using ultrasound guidance and micropuncture technique, the right internal jugular vein was accessed. A 6-Frisian x 11 cm sheath was placed. A 6-Frisian Irvin catheter was used for right heart catheterization with measurement of pressures and calculation of cardiac output using the estimated Sherman method. Irvin catheter was removed. Jamar's test was favorable on the right. Access in the right radial artery was obtained using micropuncture technique, a 5-Frisian 11 cm Hydrophilic sheath was advanced. Verapamil was given through the sheath and heparin was administered intravenously. Bilateral selective coronary angiography was then performed using a 6-Frisian JL5 diagnostic catheter. This catheter was removed. [...] James M.D. Date Trans: 05/17/2019 01:54 P/mmo [id number] cc: Paddy Stone M.D. [address], [facility] [place] [facility] [address] [facility] Vital Signs Date Time Vital Sign Value Performing Clinician Facility 10-20-2024 14:45-0500 Body height 162.6 cm Kiana Lemons DO Work Phone: [facility] 10-20-2024 14:45-0500 Body mass index (BMI) [Ratio] 28.84 kg/m2 Kiana Lemons DO Work Phone: [facility] 10-20-2024 14:45-0500 Body temperature 97.11 [degF] Kiana Lemons DO Work Phone: [facility] 10-20-2024 14:45-0500 Body weight 76.2 kg Kiana Lemons DO Work Phone: [facility] 08-22-2021 10:00-0400 Body height 167.64 cm Jose A Petersen Other [facility] Other 08-22-2021 10:00-0400 Body mass index (BMI) [Ratio] 25.01 kg/m2 Jose A Petersen Other [facility] Other 08-22-2021 10:00-0400 Body weight 70.31 kg Jose A Petersen Other [facility] Other Encounters Encounter Date Encounter Type Care Provider Facility Start: 10-20-2024 End: 10-20-2024 Patient encounter procedure Kiana Lemons DO Work Phone: [facility] Comment on above: Left hip pain (Prima ry Dx) Start: 10-20-2024 End: 10-20-2024 ambulatory KIANA LEMONS Not Available Start: 10-20-2024 End: 10-20-2024 ambulatory KIANA LEMONS Not Available Start: 04-02-2023 End: 04-03-[address] PADDY STONE . Facility:[facility] Start: 11-08-2022 Encounter for genera l adult medical examination without abnormal findings DR PADDY STONE . [facility] Start: 11-03-2022 End: 11-03-2022 ambulatory [...] Start: 05-27-2022 End: 05-27-[address] ANDREW STAHL . Facility:[facility] Start: 10-03-2021 End: 10-03-2021 ambulatory Jose A Petersen Other [facility] Other Start: 10-03-2021 Telephone encounter Jose A Petersen [facility] Start: 08-22-2021 Office outpatient ne w 45 minutes Jsoe A Petersen [facility] Start: 05-17-2019 End: 05-18-2019 Patient encounter procedure PROVIDER UNKNOWN Facility:[facility] Procedures Date Procedure Procedure Detail Performing Clinician Start: 10-20-2024 Radex hip unilateral with pelvis 2-3 views Kiana Lemons DO Work Phone: Plan of Treatment Date Care Activity Detail Author Start: 03-06-2025 End: 03-06-2025 Patient encounter procedure 03/06/2025 3:00 PM EDT Office Visit [facility] [address] [place] [address] Andrew Stahl DO [address] [place] [address] [facility] Start: 07-31-2024 Influenza vaccination Influenza Vacc ine (#1) [facility] Start: 2001 Screening for malign ant neoplasm of breast Mammogram [facility] Start: 1991 Screening for malign ant neoplasm of cervix [facility] Start: 1982 Screening for malign ant neoplasm of cervix Pap Smear [facility] Start: 1961 Screening for malign ant neoplasm of colon [facility] XR Hip - right 3 Views XR hip ri ght 2 or 3 views Imaging Routine Left hip pain 10/20/2024 2:49 PM EST [facility] Work Phone: Payers Date Payer Category Payer Private Health Insurance [facility] [id number] 1960 Unknown [id number] .2.647 1960 Unknown [id number] 2.840.1.389312.3.579 .2.593 1960 Unknown [id number] 2.0.1.527570.3.579 .2.593 1961 Unknown [id number] 2.16.840.1.329270.3.579 .2.593 1961 Unknown [id number] 2.16.840.1.099709.3.579 .2.593 1961 Unknown [id number] 2.16.840.1.779090.3.579 .2.593 1961 Unknown [id number] 2.16.840.1.940009.3.579 .2.593 1961 Unknown [id number] 2.16.840.1.597789.3.579 .2.593 1961 Unknown [id number] 2.16.840.1.080051.3.579 .2.593 1960 Unknown [id number] 2.16.840.1.537488.3.579 .2.1259 1960 Unknown [id number] 2.16.840.1.414052.3.579 .2.1259 1958 Self-pay 1958 Unknown [id number] Social History Date Type Detail Facility Start: 10-20-2024 Sex Assigned At N [facility] Other Start: 10-20-2024 Tobacco smoking stat [facility] Never smoked tobacco [facility] Start: 10-20-2024 Tobacco use and exposure Smokeless tobacco non-user [facility] Start: 10-20-2024 Alcoholic beverage intake Ex-drinker (finding) [facility] Start: 10-20-2024 History of Social function [facility] Start: 1960 Sex assigned at Not on file [facility] Start: 06-23-2024 Gender identity Identifies as female gender (finding) [facility] Healthcare History of Present illness Narrative 10-20-2024 May Trimble - 10/20/2024 2:45 PM EST Note Date & Type Note Facility 10-20-2024 History of Presen t illness Narrative Images from the original note were not included. Cony Matos is a 64 y.o. female presents with chief complaint of new problem, right hip and thigh pain. HPI: Hope is here for her right hip. She has had problems on and off for the last year or two. No specific fall or trauma. She does state that jammed it recently, nonspecific. She thought maybe that aggravated it. She did not go down. She does have some pain in her low back, occasional radiation to her thigh down to her knee. Occasional symptoms on the left side, to a lesser degree. No numbness or tingling. No fever or chills. Rare groin pain. She has tried Advil on average two times a month which helps. She has tried some ice and heat as well. She tried activity modification which she is normally very active. She states she likes to run, but she is finding that she has to give this up with her joint pain. SUBJECTIVE: MEDICATIONS: Current Outpatient Medications Medication Instructions albuterol (2.5 MG/3ML) 0.083% nebulizer solution INHALE 3 ML EVERY 6 HOURS NEEDED montelukast (Singulair) 10 MG tablet TAKE 1 TABLET BY MOUTH EVERY DAY FOR 30 DAYS ALLERGIES: Allergies Allergen Reactions Estrogens Shortness of breath Acetaminophen Other Reaction(s): Hives Codeine Latex Itching Other Reaction(s): Hives Oxycodone Other Reaction(s): Hives Sulfamethoxazole Other Reaction(s): Hives Sulfamethoxazole-Trimethoprim Other Reaction(s): hives, Not available Trimethoprim Other Reaction(s): Hives SURGICAL HISTORY: History reviewed. No pertinent surgical history. FAMILY HISTORY: No family history on file. SOCIAL HISTORY: Social History Tobacco Use Smoking status: Never Smokeless tobacco: Never Vaping Use Vaping status: Never Used Substance Use Topics Alcohol use: Not Currently Drug use: Never Depression: Not on file REVIEW OF SYMPTOMS: The review of systems, history and current medications list are all reviewed today. OBJECTIVE: Visit Vitals Temp 97.1 F Ht 5' 4 Wt 168 lb BMI 28.84 kg/m Smoking Status Never BSA 1.86 m Physical Exam On physical exam, her right knee is stable without swelling. She has a light hue of crepitance of the patellofemoral joint. There is no instability or restriction. Her right hip has mild to moderate tenderness of the hip area. Her trochanteric bursal exam is nontender. Internal rotation produces moderate pain to the hip. There is moderate stiffness. She has some low back discomfort radiating to the gluteal area, but no radicular symptoms. Bench and straight leg raise testing is negative. Her left hip has mild stiffness, no pain or guarding. X-rays, permanently saved to the patient's record, AP pelvis, right hip taken in the [place] office saved to the permanent record shows moderate degenerative changes of the right hip, mild to moderate of the left. L4-5, L5-S1 has degenerative characteristics with narrowing. There is no acute fracture, dislocation, tumor or infection seen. ASSESSMENT AND PLAN: Assessment/Plan Right hip osteoarthritis with pain; referred right knee and thigh pain. Lumbar disc disease with degenerative joint disease. The nature of the findings were discussed at length. Her symptoms appear to be coming from the right hip. We discussed conservative, injection as well a surgical arthroplasty management. Indications for hip replacement were reviewed. Ice, Tylenol, topicals and activity modification were discussed. We discussed the role of avoidance of running with high impact. This may be a big aggravator. She also sits -style quite often which may cause some pain in that area. We discussed conservative management. She would like to move forward with hip arthrogram. We discussed the perioperative course, time, healing, commitment and expectations. We discussed half-way definitive role of total hip replacement. Indications for this were reviewed. She does very well, on average, takes Advil two times a month. Dosing parameters will be done on a regular daily basis and or Tylenol was reviewed as well. Lengthy visit was encountered. She will keep a close watchful eye. If she would like to try hip arthrogram cortisone injection under local anesthetic in the hospital under fluoroscopy, she will call for scheduling. She voices verbal understanding. She is discharged in stable condition. Follow up p.r.n.. The patient was seen and examined. From the time of check in, nurse triage, vital signs, x-ray, x-ray interpretation, review of systems, comprehensive history and physical exam as well as setting up treatment plan and further management took 35 minutes. Cosigned by Kiana Lemons DO at 10/31/2024 6:16 PM EST documented in this encounter [facility] Evaluation note 08-22-2021 Note Date & Type [...] of pain and plan potential surgical treatment. [facility] Other Evaluation note Note Date & Type Note Facility Evaluation note No Information [facility] Other Evaluation note Note Date & Type Note Facility Evaluation note Diagnosis Left hip pain- Primary Pain in joint, pelvic region and thigh documented in this encounter [facility] History general Narrative - Reported Note Date & Type Note Facility History general Narrative - Reported Type Surgical History C section x3 Surgical History hysterectomy Surgical History gall bladder Hospitalization History see above [facility] Other Summary Purpose Family History No Family [...] section and content) DATE CREATED AUTHOR 07/12/2019 [facility] DATE CREATED AUTHOR AUTHOR'S ORGANIZ ATION 01/16/2022 [facility] DATE CREATED AUTHOR AUTHOR'S ORGANIZ ATION 02/21/2022 [facility] DATE CREATED AUTHOR AUTHOR'S ORGANIZ ATION 10/03/2022 [facility] DATE CREATED AUTHOR AUTHOR'S ORGANIZ ATION 04/09/2023 [facility] DATE CREATED AUTHOR AUTHOR'S ORGANIZ ATION 10/23/2024 [facility] dical Specialists EPIC REASON FOR VISIT (unrecogniz ed section and content) Reason Comments Pain Care Teams (unrecognized sec tion and content) Shank Archer Relationship Specialty Start Date End Date Paddy Stone MD [address] [place] [address] PCP - General Family Medicine 10/05/24 FOR RECORDS PERTAINING TO PATIENTS WHO ARE [...] BE BASED ON THE PRIMARY CLINICAL RECORDS. [facility] [employer] [facility]. provides no warranty or guarantee of the accuracy or completeness of information in this document.
[2025-01-14] MEDS: ONDANSETRON PF 4 MG/2 ML VIAL IV (08:23)
[2025-01-14] MEDS: 0.9 % SODIUM CHLORIDE 1,000 ML 1000 ML IV (08:23)
[2025-01-14 08:39] LABS: Hematocrit 44.1 % (36.0-48.0); Hemoglobin 15.3 g/dL (12.0-16.0); Mean Corpuscular HGB Conc 34.7 g/dL (29.9-35.2); Mean Corpuscular Hemoglobin 30.5 pg (26.7-34.0); Mean Corpuscular Volume 87.8 fL (81.0-99.0); Mean Platelet Volume 9.4 fL (9.5-13.5); Platelet Count 178 10^3/uL (150-450); Red Blood Count 5.02 10^6/uL (4.20-5.40); Red Cell Distribution Width 12.3 % (11.0-15.0); White Blood Count 5.8 10^3/uL (4.0-11.0)
[2025-01-14 08:45] LABS: Anion Gap 16.7; BUN Creatinine Ratio 31.4; Calcium 9.6 mg/dL (8.5-10.1); Carbon Dioxide 23.9 mmol/L (21.0-32.0); Chloride 105 mmol/L (98-107); Estimated GFR (African America >60 (>=60 mL/min/1.73m^2); Estimated GFR (Non-African Ame >60 (>=60 mL/min/1.73m^2); Glucose 165 mg/dL (74-106); Potassium 3.6 mmol/L (3.5-5.1); Sodium 142 mmol/L (136-145)
[2025-01-14 08:57] LABS: Band Neutrophils Absolute 0.4 10^3/uL (0.0-0.3); Eosinophils Absolute Manual 0.23 10^3/uL (0.00-0.70); Lymphocytes Absolute Manual 0.29 10^3/uL (1.20-3.80); Monocytes Absolute Manual 0.05 10^3/uL (0.30-0.80); Segmented Neut Absolute Manual 4.81 10^3/uL (1.4-6.5)
[2025-01-14] MEDS: KETOROLAC TROMETHAMINE 30 MG/ML VIAL IVP (09:35)
[2025-01-14] MEDS: LORAZEPAM 2 MG/ML VIAL 0.5 MG IV (09:56)
[2025-01-14 11:18] LABS: Bilirubin Urine NEGATIVE (NEGATIVE); Blood Urine NEGATIVE (NEGATIVE); Clarity Urine CLEAR (CLEAR); Color Urine LT. YELLOW (YELLOW); Glucose Urine UA NEGATIVE (NEGATIVE); Ketones Urine TRACE mg/dL (NEGATIVE); Leukocyte Esterase Urine NEGATIVE (NEGATIVE); Nitrite Urine NEGATIVE (NEGATIVE); Protein Urine NEGATIVE (NEG/TRACE); Specific Gravity Urine 1.015 (1.005-1.025); Urobilinogen Urine 0.2 EU/dL (0.2-1.0)
[2025-01-14 11:33] LABS: Bacteria Urine NONE SEEN #/HPF (NONE SEEN); Cast Seen? NONE SEEN #/LPF (NONE SEEN); Crystals Seen? None Seen #/HPF (None Seen); Mucus Urine NONE SEEN (NONE SEEN); RBC Urine 0-2 #/HPF (0-2); Squamous Epithelial Cell Urine NONE SEEN #/LPF (NONE/RARE); WBC Urine 0-2 #/HPF (NONE SEEN)
== END 2025-01-14 11:45 | disposition home or self-care (01) ==
PROVIDERS: Emergency Provider Emergency Medicine; PCP Family Medicine
DX: R11.2 Nausea with vomiting, unspecified (principal)
CPT/HCPCS: 36415; 80048; 81001; 85007; 85027; 93005; 96361; 96374; 96375; 99284; J1885; J2060; J2405

== ENCOUNTER 2025-01-25 06:40 | Outpatient (OUT) | payer OTHER, SELFPAY ==
--- OUTSIDE RECORDS SUMMARY | 2025-01-25 06:44 | XMS_ITS | CCD ---
Author Organization [facility] Care Team Providers Care Software Design Engineer Name Role Phone UNKNOWN, PROVIDER Admitting Unavailable UNKNOWN, PROVIDER Attending Unavailable PADDY STONE Referring Unavailable PADDY STONE Primary Care Unavailable Jose A Petersen Unavailable ARDEN ., DR THOMASON Primary Care Unavailable HOY ., DR THOMASON Consulting Unavailable HOY ., DR THOMASON Attending Unavailable HOY ., DR THOMASON Admitting Unavailable HARRISON, DR WALDO Perkins Consulting Unavailable HOY ., [...] HOY ., DR THOMASON Attending Unavailable ADRIANA LTITLE Admitting Unavailable ADRIANA LITTLE Attending Unavailable ARDEN ., DR THOMASON Primary Care Unavailable KIANA LEMONS Referring Unavailable KIANA LEMONS Attending Unavailable KIANA LEMONS Referring Unavailable Paddy Stone MD Primary Care Provider Allergies Allergy Classification Reported Allergen(s) Allergy Type Date of Onset Reaction(s) Facility (3 sources) Acetaminophen / oxyCODONE Drug Allergy 10-19-20 14 [facility] Repository (1 source) Sulfamethoxazole / Trimethoprim Drug Allergy 05-17-20 19 [facility] Repository (2 sources) Acetaminophen / oxyCODONE Drug Allergy Unknown [facility] Other (4 sources) Latex Propensity to adverse reactions Unknown [employer] Other (2 sources) Sulfacetamide / Sulfur Drug Allergy Unknown [facility] Other (4 sources) Sulfamethoxazole / Trimethoprim Drug Allergy 10-20-20 24 Unknown [facility] Other (2 sources) Codeine Drug Allergy 10-12-20 14 [facility] Repository (2 sources) Latex Drug allergy (disorder) 10-25-20 14 [facility] (1 source) Sulfamethoxazole / Trimethoprim Drug Allergy 01-08-20 17 [facility] Rep[facility] (1 source) Sulfonamides (Antibiotic) Drug allergy (disorder) 01-08-20 17 [facility] Repository (2 sources) Acetaminophen Drug Allergy 02-08-20 20 [facility] Healthcare (2 sources) Codeine Drug Allergy 10-20-20 24 [facility] (2 sources) Estrogens Drug Allergy 10-20-20 24 Shortness of breath [facility] (2 sources) Latex Allergy to substance 05-16-20 09 Itching [facility] (2 sources) oxyCODONE Drug Allergy 02-08-20 [facility] (2 sources) Sulfamethoxazole Allergy to substance 02-08-20 [facility] (2 sources) Trimethoprim Drug Allergy 02-08-20 20 [facility] Medications Current Medications Medication Drug Class(es) Dates [...] Normal 0.55-1.02 [facility] Comment on above: Performed By: #### L IPID, CMP, T7, TSH #### [facility] [address] [address] [address] Nga Ribeiro EGFR-AF GUATEMALAN >60 Normal >=60 [facility] [place] Comment on above: Performed By: #### L IPID, CMP, T7, TSH #### [facility] [address] [place], [place] [address] Dr. Nga Ribeiro EGFR-NON AF GUATEMALAN >60 Normal >=60 [facility] Comment on above: Performed By: #### L IPID, CMP, T7, TSH #### [facility] [address] ABD/PELV W CONon [...] Date: 2023-04-02 15:30 Normal [facility] OCC BLD IMMUNO SCREENon OCCULT BLOOD Negative Normal NEGATIVE [facility] Comment on above: Performed By: #### O BSCRN #### [facility] [address] [place] [address] Dr. Nga Ribeiro INSULINon 10-31-2022 Insulin 8.8 uIU/mL Normal 2.6-24.9 [facility] Comment on above: Performed By: #### L IPID, CMP, T7, TSH #### [facility] [address] [place] [address] Dr. Nga Ribeiro CBC AUTO DIFFon 10-30-2022 BASO # 0.1 103/ul Normal 0.0-0.1 [facility] Comment on above: Performed By: #### L IPID, CMP, T7, TSH #### [facility] [address] [place] [address] Dr. Nga Ribeiro Basophils/100 WBC (Bld) 1.4 % Normal 0.2-2.0 [facility] Comment on above: Performed By: #### L IPID, CMP, T7, TSH #### [facility] [address] [place] [address] Dr. Nga Ribeiro EO # 0.3 103/ul Normal 0.0-0.7 [facility] Comment on above: Performed By: #### L IPID, CMP, T7, TSH #### [facility] [address] [place] [address] Dr. Nga Ribeiro Eosinophils/100 WBC (Bld) 6.3 % Normal 0.9-7.0 [facility] Comment on above: Performed By: #### L IPID, CMP, T7, TSH #### [facility] [address] [place] [address] Dr. Nga Ribeiro Erythrocyte distribution width (RBC) [Ratio] 12.7 % Normal 11.0-15.0 [facility] Comment on above: Performed By: #### L IPID, CMP, T7, TSH #### [facility] [address] [place] [address] Dr. Nga Ribeiro Hematocrit (Bld) [Volume fraction] 40.4 % Normal 36.0-48.0 [facility] Comment on above: Performed By: #### L IPID, CMP, T7, TSH #### [facility] [address] [place] [address] Dr. Nga Ribeiro Hemoglobin (Bld) [Mass/Vol] 13.8 g/dL Normal 12.0-16.0 [facility] Comment on above: Performed By: #### L IPID, CMP, T7, TSH #### [facility] [address] [place] [address] Dr. Nga Ribeiro IG # 0.01 10e3/ul Normal 0.00-0.03 [facility] Comment on above: Performed By: #### L IPID, CMP, T7, TSH #### [facility] [address] [place] [address] Dr. Nga Ribeiro IG % 0.2 % Normal 0.0-0.5 [facility] Comment on above: Performed By: #### L IPID, CMP, T7, TSH #### [facility] [address] [place] [address] Dr. Nga Ribeiro LYMPH # 1.9 103/ul Normal 1.2-3.8 [facility] Comment on above: Performed By: #### L IPID, CMP, T7, TSH #### [facility] [address] [place] [address] Dr. Nga Ribeiro Lymphocytes/100 WBC (Bld) 46.4 % Normal 20.5-60.0 [facility] Comment on above: Performed By: #### L IPID, CMP, T7, TSH #### [facility] [address] [place] [address] Dr. Nga Ribeiro MANUAL DIFF REQ NO Normal [facility] Comment on above: Performed By: #### L IPID, CMP, T7, TSH #### [facility] [address] [place] [address] Dr. Nga Ribeiro MCH (RBC) [Entitic mass] 30.6 pg Normal 26.7-34.0 [facility] Comment on above: Performed By: #### L IPID, CMP, T7, TSH #### [facility] [address] [place] [address] Dr. Nga Rbieiro MCHC (RBC) [Mass/Vol] 34.2 g/dL Normal 29.9-35.2 [facility] Comment on above: Performed By: #### L IPID, CMP, T7, TSH #### [facility] [address] [address] [address] Nga Ribeiro MCV (RBC) [Entitic vol] 89.6 fL Normal 81.0-99.0 [facility] Comment on above: Performed By: #### L IPID, CMP, T7, TSH #### [facility] [address] [place] [address] Dr. Nga Ribeiro MONO # 0.4 103/ul Normal 0.3-0.8 [facility] Comment on above: Performed By: #### L IPID, CMP, T7, TSH #### [facility] [address] [place] [address] Dr. Nga Ribeiro Monocytes/100 WBC (Bld) 9.1 % Normal 1.7-12.0 [facility] Comment on above: Performed By: #### L IPID, CMP, T7, TSH #### [facility] [address] [place] [address] Dr. Nga Ribeiro NEUT # 1.5 103/ul Normal 1.4-6.5 [facility] Comment on above: Performed By: #### L IPID, CMP, T7, TSH #### [facility] [address] [place] [address] Dr. Nga Ribeiro Neutrophils/100 WBC (Bld) 36.6 % Critically low 43.0-75.0 [facility] Comment on above: Performed By: #### L IPID, CMP, T7, TSH #### [facility] [address] [place] [address] Dr. Nga Ribeiro Platelet mean volume (Bld) [Entitic vol] 9.2 fL Critically low 9.5-13.5 [facility] Comment on above: Performed By: #### L IPID, CMP, T7, TSH #### [facility] [address] [address] [address] Nga Ribeiro PLT 194 103/ul Normal 150-450 [facility] Comment on above: Performed By: #### L IPID, CMP, T7, TSH #### [facility] [address] [address] [address] Nga Ribeiro RBC 4.51 106/ul Normal 4.20-5.40 [facility] Comment on above: Performed By: #### L IPID, CMP, T7, TSH #### [facility] [address] [place] [address] Dr. Nga Ribeiro WBC 4.2 103/ul Normal 4.0-11.0 [facility] Comment on above: Performed By: #### L IPID, CMP, T7, TSH #### [facility] [address] [place] [address] Dr. Nga Ribeiro FREE THYROXINE INDEX T7on FTI 2.66 Normal 1.30-4.50 [facility] Comment on above: Performed By: #### L IPID, CMP, T7, TSH #### [facility] [address] [place] [address] Dr. Nga Ribeiro T3U 36.0 % Normal 30.0-39.0 [facility] Comment on above: Performed By: #### L IPID, CMP, T7, TSH #### [facility] [address] [place] [address] Dr. Nga Ribeiro T4 [Mass/Vol] 7.40 ug/dL Normal 4.80-13.90 [facility] Comment on above: Performed By: #### L IPID, CMP, T7, TSH #### [facility] [address] [place] [address] Dr. Nga Ribeiro GLYCOHEMOGLOBIN A1Con 2021 ADA RECOMMENDATION SEE BELOW Normal [facility] Comment on above: Result Comment: ADA RECOMMENDED LIMIT 4.0 - 6.0 ADA THERAPEUTIC TARGET < 7.0 ACTION SUGGESTED > 7.0 Performed By: #### A 1C #### [facility] [address] [place] [address] Dr. Nga Ribeiro Glucose [Mass/Vol] 94 mg/dL Normal [facility] Comment on above: Performed By: #### A 1C #### [facility] [address] [address] [address] Nga Ribeiro HbA1c (Bld) [Mass fraction] 4.9 % Normal 4.5-6.2 [facility] Comment on above: Performed By: #### A 1C #### [facility] [address] [place] [address] Dr. Nga Ribeiro IRONon 10-30-2022 Iron [Mass/Vol] 119.0 ug/dL Normal 50.0-170.0 [facility] [place] Comment on above: Performed By: #### I CHARISMA #### [facility] [address] [place] [address] Dr. Nga Ribeiro LIPID PROFILEon 10-30-2022 CHOL-HDL RATIO NORM SEE BELOW Normal [facility] Comment on above: Result Comment: 3.3 - 4.4 LOW RISK 4.4 - 7.1 AVERAGE RISK 7.1 - 11.0 MODERATE RISK >11.0 HIGH RISK Performed By: #### L IPID, CMP, T7, TSH #### [facility] [address] [place] [address] Dr. Nga Ribeiro Cholesterol [Mass/Vol] 201 mg/dL Critically high <=200 [facility] Comment on above: Performed By: #### L IPID, CMP, T7, TSH #### [facility] [address] [address] [address] Nga Ribeiro Cholesterol in HDL [Mass/Vol] 78 mg/dL Critically high 40-60 [facility] Comment on above: Performed By: #### L IPID, CMP, T7, TSH #### [facility] [address] [address] [address] Nga Ribeiro Cholesterol in LDL [Mass/Vol] 108.8 mg/dL Normal [facility] Comment on above: Performed By: #### L IPID, CMP, T7, TSH #### [facility] [address] [address] [address] Nag Ribeiro Cholesterol.total/Ch olesterol in HDL [Mass ratio] 2.6 {ratio} Normal [facility] Comment on above: Performed By: #### L IPID, CMP, T7, TSH #### [facility] [address] [address] [address] Nga Ribeiro HDL NORMAL > or = 60 mg/dl - LO W CARDIOVASCULAR RISK <40 mg/dl - HIGH CARDIOVASCULAR RISK Normal [facility] Comment on above: Performed By: #### L IPID, CMP, T7, TSH #### [facility] [address] [address] [address] Nga Ribeiro LDL CALC NORMAL SEE BELOW Normal [facility] Comment on above: Result Comment: <100 mg/dl OPTIMAL 100 - 129 mg/dl NEAR OR ABOVE OPTIMAL 130 - 159 mg/dl BORDERLINE HIGH 160 - 189 mg/dl HIGH >190 mg/dl VERY HIGH Performed By: #### L IPID, CMP, T7, TSH #### [facility] [address] [address] [address] Nga Ribeiro Triglyceride [Mass/Vol] 71 mg/dL Normal <=150 [facility] Comment on above: Performed By: #### L IPID, CMP, T7, TSH #### [facility] [address] [address] [address] Nga Ribeiro VLDL CALC 14.2 mg/dL Normal [facility] Comment on above: Performed By: #### L IPID, CMP, T7, TSH #### [facility] [address] [address] [address] Nga Ribeiro PROF 14(COMP METB)on 022 Albumin [Mass/Vol] 3.8 g/dL Normal 3.4-5.0 [facility] Comment on above: Performed By: #### L IPID, CMP, T7, TSH #### [facility] [address] [address] [address] Nga Ribeiro Albumin/Globulin [Mass ratio] 1.1 {ratio} Normal [facility] Comment on above: Performed By: #### L IPID, CMP, T7, TSH #### [facility] [address] [place] [address] Dr. Nga Ribeiro ALP [Catalytic activity/Vol] 91 U/L Normal 46-116 [facility] Comment on above: Performed By: #### L IPID, CMP, T7, TSH #### [facility] [address] [place] [address] Dr. Nga Ribeiro ALT [Catalytic activity/Vol] 19 U/L Normal 14-59 [facility] Comment on above: Performed By: #### L IPID, CMP, T7, TSH #### [facility] [address] [place] [address] Dr. Nga Ribeiro Anion gap [Moles/Vol] 9.2 mmol/L Normal [facility] Comment on above: Performed By: #### L IPID, CMP, T7, TSH #### [facility] [address] [place] [address] Dr. Nga Ribeiro AST [Catalytic activity/Vol] 18 U/L Normal 15-37 [facility] Comment on above: Performed By: #### L IPID, CMP, T7, TSH #### [facility] [address] [place] [address] Dr. Nga Ribeiro Bilirubin [Mass/Vol] 0.5 mg/dL Normal 0.2-1.0 [facility] Comment on above: Performed By: #### L IPID, CMP, T7, TSH #### [facility] [address] [place] [address] Dr. Nga Ribeiro Calcium [Mass/Vol] 9.5 mg/dL Normal 8.5-10.1 [facility] Comment on above: Performed By: #### L IPID, CMP, T7, TSH #### [facility] [address] [place] [address] Dr. Nga Ribeiro Chloride [Moles/Vol] 105 mmol/L Normal 98-107 [facility] Comment on above: Performed By: #### L IPID, CMP, T7, TSH #### [facility] [address] [address] [address] Nga Ribeiro CO2 [Moles/Vol] 29.5 mmol/L Normal 21.0-32.0 [facility] [place] Comment on above: Performed By: #### L IPID, CMP, T7, TSH #### [facility] [address] [address] [address] Nga Ribeiro Creatinine [Mass/Vol] 0.68 mg/dL Normal 0.55-1.02 [facility] Comment on above: Performed By: #### L IPID, CMP, T7, TSH #### [facility] [address] [address] [address] Nga Ribeiro EGFR-AF GUATEMALAN >60 Normal >=60 [facility] [place] Comment on above: Performed By: #### L IPID, CMP, T7, TSH #### [facility] [address] [address] [address] Nga Ribeiro EGFR-NON AF GUATEMALAN >60 Normal >=60 [facility] Comment on above: Performed By: #### L IPID, CMP, T7, TSH #### [facility] [address] [address] [address] Nga Ribeiro Globulin (S) [Mass/Vol] 3.6 g/dL Normal [facility] Comment on above: Performed By: #### L IPID, CMP, T7, TSH #### [facility] [address] [address] [address] Nga Ribeiro Glucose [Mass/Vol] 100 mg/dL Normal 74-106 [facility] Comment on above: Performed By: #### L IPID, CMP, T7, TSH #### [facility] [address] [address] [address] Nga Ribeiro Potassium [Moles/Vol] 4.7 mmol/L Normal 3.5-5.1 [facility] Comment on above: Performed By: #### L IPID, CMP, T7, TSH #### [facility] [address] [address] [address] Nga Ribeiro Protein [Mass/Vol] 7.4 g/dL Normal 6.4-8.2 [facility] Comment on above: Performed By: #### L IPID, CMP, T7, TSH #### [facility] [address] [place] [address] Dr. Nga Ribeiro Sodium [Moles/Vol] 139 mmol/L Normal 136-145 [facility] Comment on above: Performed By: #### L IPID, CMP, T7, TSH #### [facility] [address] [address] [address] Nga Ribeiro Urea nitrogen [Mass/Vol] 19.0 mg/dL Critically high 7.0-18.0 [facility] Comment on above: Performed By: #### L IPID, CMP, T7, TSH #### [facility] [address] [place] [address] Dr. Nga Ribeiro Urea nitrogen/Creatinine [Mass ratio] 27.9 mg/mg Normal [facility] Comment on above: Performed By: #### L IPID, CMP, T7, TSH #### [facility] [address] [place] [address] Dr. Nga Ribeiro TSHon 10-30-2022 TSH 0.871 uIU/mL Normal 0.358-3.740 [facility] Comment on above: Performed By: #### L IPID, CMP, T7, TSH #### [facility] [address] [place] [address] Dr. Nga Ribeiro Covid-19 PCR ([facility])on 10-01 SARS-CoV-2 (COVID-19) RNA [place]+probe Ql (Unsp spec) Not detected Normal NOT DETECTED [facility] Comment on above: Result Comment: When diagnostic [...] for this test is supported by the [place] of Health and Human Service's declaration that [...] By: #### C VDTBH #### [facility] [address] [place] [address] Dr. Nga Ribeiro INFLUENZA A AND B AGon 10-22 INFL[facility] [place] SEE BELOW Normal [facility] Comment on above: Result Comment: Nega tive for Flu A protein angiten. Infection due to Flu A cannot be ruled out. Flu A angiten in the sample may be below the detection limit of the test. Performed By: #### L IPID, CMP, T7, TSH #### [facility] [address] [place] [address] Dr. Nga [facility] SEE BEL[facility] Normal [facility] Comment on above: Result Comment: Nega tive for Flu B protein antigen. Infection due to Flu B cannot be ruled out. Flu B antigen in the sample may be below the detection limit of the test. Performed By: #### L IPID, CMP, T7, TSH #### [facility] [address] [place] [address] Dr. Nga Ribeiro INFLUENZA A AG Negative Normal NEGATIVE SEE COMMENT [facility] Comment on above: Performed By: #### L IPID, CMP, T7, TSH #### [facility] [address] [place] [address] Dr. Nga Ribeiro INFLUENZA B AG Negative Normal NEGATIVE SEE COMMENT [facility] Comment on above: Performed By: #### L IPID, CMP, T7, TSH #### [facility] [address] [place] [address] Dr. Nga Ribeiro INTERNAL CONTROLS Within Normal Limits Normal Wi thin Normal Limits [facility] Comment on above: Performed By: #### L IPID, CMP, T7, TSH #### [facility] [address] [place] [address] Dr. Nga Ribeiro MRI Shoulder w/o Lefton [...] by Maulik Stewart on 10/02/2022 1335 Normal [facility] Entry Level Buyer MG MAMM SCREEN 3D ZARI CADon 06-16-2022 MG MAMM SCREEN 3D ZARI CAD Patient: CONY MATOS Exam Date: 06/16/2022 : 1960 Gender:F Ordering : DR ANDREW STAHL . Admission #: [id number] Family : Order #: [id number] CLICK HERE TO VIEW EXAM RADIOLOGY REPORT [...] Treatments Excision Family Cancers None LOCATION: [facility] BREAST COMPOSITION: Scattered areas fibroglandular [...] Owen Nixon M.D. on 06/16/2022 at 13:28 [facility] PAP ACOG PANEL 2: 30 to 65on 05-30-2022 . . Normal [facility] Comment on above: Result Comment: Perf ormed at: WB Performed By: #### L IPID, CMP, T7, TSH #### [facility] [address] [address] [address] Nga Ribeiro Age Gdln ACOG Testing 30-65 [facility] Comment on above: Performed By: #### L IPID, CMP, T7, TSH #### [facility] [address] [address] [address] Nga Ribeiro DIAGNOSIS: Comment Normal [facility] Comment on above: Result Comment: UNSA TISFACTORY FOR EVALUATION. Performed at: WB Performed By: #### L IPID, CMP, T7, TSH #### [facility] [address] [address] [address] Nga Ribeiro HPV Aptima Negative Normal Negative [facility] Comment on above: Result Comment: This nucleic acid amplification test detects fourteen high-risk HPV types (16,18,31,33,35,39,45,51,52,56,58,59,66,68) without differentiation. Performed at: =G Performed By: #### L IPID, CMP, T7, TSH #### [facility] [address] [address] [address] Nga Ribeiro Methodology: Comment Normal [facility] Comment on above: Result Comment: This liquid based ThinPrep(R) pap test was screened with the use of an image guided system. Performed at: WB Performed By: #### L IPID, CMP, T7, TSH #### [facility] [address] [address] [address] Nga Ribeiro Note: Comment Normal [facility] Comment on above: Result Comment: The Pap [...] IPID, CMP, T7, TSH #### [facility] [address] [address] [address] Nga Ribeiro Performed by: Comment Normal [facility] Comment on above: Result Comment: Kolton Carpio, Supervisor Dry Cleaning (ASCP) Performed at: WB Performed By: #### L IPID, CMP, T7, TSH #### [facility] [address] [address] [address] Nga Ribeiro QC reviewed by: Comment Normal [facility] Comment on above: Result Comment: Adore Sloan, Supervisory Supervisor Dry Cleaning (ASCP) Performed at: WB Performed By: #### L IPID, CMP, T7, TSH #### [facility] Laboratory [address] [address] [address] Nga Ribeiro Recommendation: Comment Normal [facility] Comment on above: Result Comment: Sugg est follow up as clinically appropriate. Performed at: WB Performed By: #### L IPID, CMP, T7, TSH #### [facility] [address] [address] [address] Nga Ribeiro Specimen adequacy: Comment Normal [facility] Comment on above: Result Comment: Spec imen processed and examined but unsatisfactory for evaluation of epithelial abnormality because of insufficient cellularity. Performed at: WB Performed By: #### L IPID, CMP, T7, TSH #### [facility] [address] [address] [address] Nga Ribeiro Coding Summary.on 12-30-2021 Coding Summary. CD:[id number] Gh 0bWw+PGhlYWQ+VD4GUCUqP 27zcTWykG3WZ5oBCV0RFBK QAXXINB8UFS9wuER3AFhgK 2VybiAv NifytDYpYA65YFu4IAR1qU xeTMslbM3oiUMyN6p9GxYc QX52iI95REqrIZShQpY4Vm ZpbjsgbWFy F4uvElYbxUUrBni+PHRhYm xlIHdpZHRoPScxMDAlJyBz iIjiHW5eQp1gMQCoSQBdhR xhcHNlOiBj b4yrCPKdQAgfFZ6thEbtL6 JizJG7YDMuh1k5Ze98hMN+ INGeXDI4gEprPYmtx332Gh Lbp2dyLOP7 aXWaLZvzDKN1Z54on7L0DB QkTPOkCVV2vQM2tY1xfBgz jroxM4CxdTCgTmA4NGS7bW GqcG5qmRls phzifE2dGph+J77VPX4GXR QITN9WPqm8Y6PbPldjpCF+ YB86CWEwOC60lVYeaRNzf4 qilEj7HtZn BJWpRPI3fXclMOmjp9SfVQ NdB03tjONww3U6WMPvfDjw sTLrLmZjmIG5oR5uTQofyy see4ofikvu Qwlxq6igxr82xR11L62wHO iuVFUxFUB2CDQbRKIdvNqe hc4qyW7vOj8+CUbbi1iyz2 bnpHq1EwXt DVGkupHnbTvpCWC5i3ZdMe 59L4RmoCjml5RaLbd0ss67 aPMry0K6vHJ5ARbeSWCrhA 8dJMfeRnO4 AOZkDySkdU08mKKfDPqpFu 2coHgsjSiaRW6uFARqojch EQIweK6hTCNocUBcxJdxHQ 4wNTBpbjtm n361PyTqYHP0CPRbnUNnA3 OzqZ3eThDuWNNrITCvO7Lf qGAtXXrrH080GZkzInK8UN GxhuWjT4Ut GIPggOkzYjJ7z3J2Yo8Nc5 VellwoAZQ4JQutXLGrJyVh HcFuCeR8L9JzMjs0RPXokM ddAE4oC5Lt KSXtjrgtgyvebHC2ZZUcXF QdjJ19jWEnHOoeXl7uj3I1 k465FGDhQYSakM64Dh2jdX ogMTBwdCBU vH7vwwwgz1jinitqBeQfJW MjBPx1TIt6WWOjcWxdBdRq ABZ2OdE8LOY6vGWgkM7suL smggnxiK3q Oyc+G41thK9hXCL1ORR6ky cmYDMlkwNtUJ48VT81I9Hx PjwvdGFibGU+PGRpdiBzdH mgIK2oSgXq d0zue4OvVIjxK6HbRVTzUW oiEyx0ONRiGEG3jTY5dF3y WFRjXSpsp7R7hAX0G1Hxbv Dlfx1qn3as LRDaWDitR26zyFVjn9I4SA AwjKM5KPUniVtoKbHvlN05 Oyc+DWTleSkpa2SdZeayg3 zxx3srtYz2 MnPgZOOcmaPgnLnkLXX8p4 FzXs00Q74bBFpoKILaXVGc HNCkTLClqTexcg1ufM4eDn 8+PGNvbCB3 cML0rM7mFERuRiA1LQocJ4 95AbXapLFcIypjz5nsy4yq oYy5VzVlSMFdzeOriXztKV E6w8TvCn85 Z35fUGuuMHDeTXTfOCRgNS TvaZqilg2wmI2aEs6+PC9j t8qjrm78wX08lAR+PHRkIH V7xKzqFRsw AMJkzT7gGOajKjG3YTYdEx TdiW78lRHpUXdbMa8vcNnn oBsrPI0jRTTzigmru786Vp Huf0emPJFq uWAlTCpoPRL6K17iw0R9OQ EyOUMlMBG3nZB8mC1xuYcs bjogbGVmdDsgdmVydGljYW ojSLhhE605 IHRvcDsnPlBhdGllbnQgTm QwVRw2U6NqVuc6PRIffWhh LV7avSCmFTwnPx6owMxsdO ttRY1rEEZo xwwua182RsSix7bgESZumG AsJWcyVGL8G45vu2V4FIWk ZZOaQKR4dKM6fG7rtCevof ogbGVmdDsg lkQhcGcvKQwbDBsoD994GT RvcDsnPkJpcnRoIERhdGU6 EU36CJ61qDNiq9F1eXN5Z0 BhZGRpbmct qsdfvOP2LFYbBDFqqG93Oi 7srZlmPf2vFQRaUIS1HJYp jLZxU7FfoL8rNwCvKMRhVX HxB5DiyGUi ITcjH259XNqoUwO8SOQivm EyX8XuSLPeiYkwVdT6k1P4 Sw3AD3C3EB01TB22nIEog1 Y4iXR7Q5Vq UVUbvmupcgsgwAM6YRKyDG NtzC80Vg1ygMcsXe2jNQYz MZV5VDYxwHJbP3ZsgH4nMp AjMDAwMDAw K2OmrWHlTYdvK869OTvgOc W6WTRvvxRoK8ZxKSIzaUax UzZ7w8A2Dx3VJRa8QV85SF 36bPEci2C5 iVY2F6HbPAXddifbshyksS X6GUMpCZIwtB55Kf1xnQgb Ms6uKXVyZWO9PGQxbTUeO2 RaaQ5mXcSd WSIhHCSgP7JokAXlQWfuF8 91QJgqBvA1HSHlmbUpM2Vn YFCciBamOxD0u3Z5Or7XWX VkLG07SRL7 aLO2YZ34NU46R8RmLkhliK FibGU+PHRhYmxlIHdpZHRo BOpkWUVkLrWeaYqcFS3oCn 9yZGVyLWNv zWxmhSXnZuZcz3tzTWLhGS ajLX1wjEbkJ3VleLT3HMSb n8h3Xx60E00vL3HylJN+PG XkkJN4kYJ8 lX8eUhLkVfK5TNukY760Uk QizEDgRsglx5vfm1skpXh8 IxE1NKPpwoEqsUzpZRZ6v8 ArZg64S43f IHdpZHRoPSIxNSUiIHZhbG uebl5upR7eYm0+PGNvbCB3 cZN1jH0dYnGzJkN5BNioJ8 49InRvcCIv Pixba6koz8qysLy8SxJqOK XxkfOmpWefHHE0o4UbCp46 B6WvsKikf5TqTqe9uo43cA Ugx7I5nVN4 D1NfECWslbjkrVUyjSekOJ 0cLCDjelxjSSTlrP4mIBNh G2m5HjPlHrG3YVtvQ4Kaxr F9WQZpbZYn PYsrBRJ0O35qk4D2FWRhRP RxQDW3uPQ4cW7yvVpxytnb bGVmdDsgdmVydGljYWwtYW mrZ605ZOEs sKazUCKmaY0cICSarXZrzH wsLG9cLXPscxqtTl0LMWBK UiwgQkVUVFkgTDwvdGQ+PH QvUOH4hXlx PMijOUXoqR6wFTYqT7w5Xf BdVzQ8CLwxX7LfWJFbhhkj Ro34cK7mGgKgKcE0WZivJ2 KxjlT3DEFy jAWjPGieXSM2T00vg1S0YY UbHCWbZFN4aDZ5kT7gxNgf bjogbGVmdDsgdmVydGljYW zuUPpkF061 KDOfrWrbPvFbKbM8DmU5Aw O0C3OtVsw7THLpfMgxZE9v jIQfKQzlSm9jbSibuIqnQD 4wNTBpbjtw KILasV3tJDZyuCPonOdmBT 6dDSCiqdrnt778SjKxZBI2 TVPfbWLyY9StzU3vAxPxHD KqTUQtR1Sc fJXtBLcxL501QFibKpV7SY EvgfQeO7FtFKLvyAfpByW5 h2N7Gn07NRUCMCNdbsepzZ Q+PHRkIHN0 eUyrXZyxPVXquS9wVJZxZ2 e0KpFsOsX7UOubF1ZjWEDk tucxEb19eM2wYhDeApA2GZ ctO2HlujX7 EEDnjKKhLXhmYZJ9Q93th0 E9YUSiBBFtDNA3gMA2mG0h bGlnbjogbGVmdDsgdmVydG ljYWwtYWxp Z449UQRuoQgmDzGrpYBtFG wvdGQ+EBFbRNI5tKfpWJpd RQDnyT4kOBNpE8n9ChCgKw V4SRjtV7Yo PGDjjwvfYo44iR3dTlNfWa R6ZAxkU7AdgzB6KKOfmPXw SNwfSQD9A63hp8J3SUHxJW JhEBX6vSK6 sX3tgMnlwhjxmVWdiGsjvl LpsZfqLOzjVEjdB495XPWm kZqzJm37xWDgwBwpqdP5Q3 RkPjwvdHI+ OU07UOHaLH27bXNhcATgg6 olcKw0HqOxNIGzTOG8nIzr LRmuf3SlAKJaK66jtCNsi2 Y1BWEmvHpg pMVvCmTtbHE7qQ1uMMjjin iup7jinrjxKpbjs7ukej00 fC12J80jWTisXTLlOEGcRG UiIHZhbGln af4jaB3fAq1+QDGbpLM5hS W1eD6gOgWeFbZ7IYzfX031 OmOwjJMmHpwkv9hqx6xjfL e0BkHyWBKd vrHzbLflCNI2e9ZdRe40A3 9sIHdpZHRoPSIyMCUiIHZh qVzbch3fvN4cKb5+PC9jb2 zazq70fY23 dHI+KKYyVTU6eRbeBSajVA OhyE0mKHcfPsM6HIOgXlEi bG78wLYzBKnmFm9svRkbzO nfAB5gVUDf tpuyp154MlJqz2htHALfsG PhIBwkMDB6I35ie0H4GHGc GGScNOV2fTU5cX4ucCphvi ogbGVmdDsg cdYenBdtKCmuCJjiZ741IS FtrJoiBvYcrTPzQ0cogoJM MB8wPzaacZT+HZAyXVH4uJ xlPSdwYWRk aK8nJAJaU4g1PbJsZmJ3JX pjK5RidmF4WULskGInDUSq nAVDvF6cpizvm2lkrutjNy AwMDAwMDt0 ZHk1ESRbhNefMoAvCIZ4Pc X6SYE6dXSkrR9dxRnbuusq rT5yXet+RklOOjwvdGQ+PH XsKVI5wSkd EPpaFUCexY6rDIYiZ9v4Ii TdTzS6OKikI4BkupP0MIOf hBAcJBUsiDRBqU9flroqy4 xvcjogIzAw CQXwLDm1BMq0ULZrjJsxEp NwTEX1TkW1VWP4zKIwoU3q fOxdxqjaiL1uSlr+TVJOOj wvdGQ+PHRk ZBL6pNxpFWhbTFJmrN9nXU LuH4g1AkJiXxO1UJzrR1Wc yfK7KNBnyNSyVDVghFJFaY 6idtknq0tt hoprQqEbVYQrWLw3SCq6MM XhgOynKvYcBJB0XtS2AON1 vXKabQ4eiKlxjnbloI2hAm c+QMP7ZCN6 KN63KJ91A1FaBovnxTBjpB U+PHRhYmxlIHdpZHRoPScx FCQzDhUeaUljNS7jGn9fKH VyLWNvbGxh cHNl (more content not included)... Normal [facility] Coding Summary.on 12-27-2021 Coding Summary. CD:[id number]:[id number] Gh 0bWw+PGhlYWQ+WG9SEZBdW 03jyIKtpP4CA4pFAO1AVVL RYARPXD4CTB1aqRK3KFjkA 2VybiAv EakcrIBkBE07FBt9TCJ7jI nqRSjhtE2sbEUwJ5q7VuBz YW32yD59ZVjyVSIsWbB2Lh ZpbjsgbWFy Y9klLvXfqUUvIov+PHRhYm xlIHdpZHRoPScxMDAlJyBz sHhfYA2fKe2eZMHyWJUbyR xhcHNlOiBj n0plPAEhFKxpFE5jzJdkN8 LhkMJ4OWHak5h3Ic06xJJ+ REPbGUW3xMevFXfsu997Fc Fjg6dyGNV9 eMEyVMioIFA2M74kf1Q8JM KcNQHnQSU0wNL5nP6vuQrg yxeiS0DqcFNeEtS9OTK2fD LafM8nyCiu uknfxA0dYfj+W40HBN1MUT VIHH5NOhz2W0MuQzxyiUO+ ZI81EASrPY66vVHvpZStq3 qnrWx3AyDg BUKoRNL8eQaaPCpbn9UyOF JyF02xoZHya6B4ORBhvYtr wKDdUxTkaLP7wK3uEKavcn kdr8qizgwu Liajr4adzg83fD36L73rRK qyZDGyUPH6CSLeHNDmsXbg za1emV7iCx7+YCdab7asj1 flxFn8JsKg TOEaeySofSxfEWE9u8QjIn 14U2KqnJbkc5ZbWyc0xr27 vBGug7P2mKA4WGyiIEXiwK 9eQDzkXwK5 FLDcRrOxdV29yDGvZBqqJm 5gpDkggAyaEC5fHBOgytsv DVTluB7wNJKoyFTyoPhlER 4wNTBpbjtm r455DjKaAXS3BVVivMIhJ4 GkcN6yLfEpKGQuKTQyK0Jm pFWaJKrwQ120VMlaXyL1PW LepkGiH0Yy LPSkcHxcGoD0g5L3Al7Rd4 XnozjnGGE5WXaiQAMyDpG9 XuIsNuE2B8ObCsn1YMNhiH rnGP5zQ5Zt VDTsmdhypigszCU0SOQzZM EjuQ46rLJjHOquLb7si6Z7 i554IFJbHOPvbR20Rd9fqZ ogMTBwdCBU rW8xacuso6qswpnaKbIxLS GeNTh2TXv2RXZjxBuzMvSm WLA2OaA5HDZ8pLLkvZ3ybG uxgmxsvS4w Oyc+B74nlC6mNZL4LFO2of xsXRIsbrUnYR93GS32R2Ze PjwvdGFibGU+PGRpdiBzdH kuVD4gVuJp n1oaj9AzMUftI9GlJTRuBA vgIho8XAFgPMW7uFB4tI0c YVJlRWutp4E0lWP3X4Fmmb Mdlq1tk8de BVKmLNlkD68pvOGqt9Y8YX DilTP7DILzrLuuFfFkkG85 Oyc+TETjaTcgf4GgJzydp0 qsb1qvuIn4 NcDdIFHcwzQzsFvmXLV4x3 XsFe21H57nHUhoSGIqGVPa XWCyGAVavPiewr5rbO6dNd 8+PGNvbCB3 hRR7tW7hCIHgQmO6SIfoI4 56KeNrgMMyFwdcg0ysw0bg lHr3XtGhETMccxIlyZkcFR L7k0PgKc71 W11wCOxrRUDvMYMjYRStNB LqgXkgqs0ejS3qTg1+PC9j y6olts09qP98rFJ+PHRkIH K5kUcsHJzu YWEwfM8cOBtuXaH3EPKiZp JicD34sTXlXOqkBi0moEzl hInoJF9aVPNamocef443Pa Hel1qzIVDd iFGoRWhrZSL8D13xb7S0JT ZlODXfFXX8vUB9lC8wfJwt bjogbGVmdDsgdmVydGljYW wmYUyoU634 IHRvcDsnPlBhdGllbnQgTm ApNNt0I5QqOcb9BHExpAnr IR8kyMIhNCnhYt4hyWtneG jnZG2pWOEt qrzdl854WbTkc4jcIUQjmF XaHVqtLYK1G07dv6X7EEUx APPbVSN2jSZ3yX1klWfuuf ogbGVmdDsg frOemFvvXJyjNQaxU659VC RvcDsnPkJpcnRoIERhdGU6 JM15KZ93yAHzv5O4gLN7E9 BhZGRpbmct evsygNM5CFCsRSOlaN56Wi 5ttVjrJu0sSQVzCCZ2OUHw dMEhM3IgiY2yJiYpBBHdAT XgI6PnqJXb EZfzJ544OBjdDmA8ENIsvm VsN2MdUJQtdVfcPqO0t7W4 Jf5YD7E5VE31ZJ82gNDxi5 V8qUO2L3Sl NWOuamouwcscwWP3KDMsWW AxgQ90Es8diIwcDz3lVFUl CCO8NJQueSDuJ6NaeE9fWi AjMDAwMDAw U4SkuHSvGVjiK725AYwnBs Q7DPUouvSlF7BzSLFbpWah RzX7b5N1Ts7AJAv5WM44KU 05uQLdd8G5 oMT5L8KxCLBkpqagvkgodR E7NIXlQSMmxC65Ss8mpSda Su4bFQNxKPS5CIFriYWyU6 IeeA3pLcCd IDDfHOAhN7GftGNpKAncT1 79EGuhZuU9RHSldoFqX0Rw NIWqmWwpVzJ8s8Y2Kk6GEW WkWL15WQH1 oUK7QE01NC50O2ZjQvrrlP FibGU+PHRhYmxlIHdpZHRo DCcnXUGuBnXwsBpaHA6cYa 9yZGVyLWNv pTzjdHCxEdLjy2enIDUqCE rbHC3fxUslX7AziBO9JXVd g9z9Pq44X76fV5DnfKT+PG WaiFC4pMI7 vK9cCiUzNwX4LUplL041Fy TzwJZtWrhoo3brs6moxWb2 McK5DQEgudLioKnvCTG9t8 QpJv65O03f IHdpZHRoPSIxNSUiIHZhbG mjow7jeD6zFj1+PGNvbCB3 bUG0zJ6vFnFrWxJ1LMbaF5 49InRvcCIv Mockn0luz3kwdMv3IuPmVI KrbnYzoMegWUY0p5JgCm50 E4EthUica5UhItd5pp27iZ Yvg5X7wPU1 L9SpSFOitoqbrLEiwWsgRD 2oZANscasmJXKhvU3yVRPa X7w8YoJkDvS7HFiuS9Wmdo O0LUVeaLCx GYkcJLT9R36xl5V8NOCsCN EhMPA5mFA3zQ4ovKxhksnh bGVmdDsgdmVydGljYWwtYW wbD835ZHUl mHdpWQUlzO6nGRJgfIGlkB tuUE4bKWAcneodWr0OYIWC UiwgQkVUVFkgTDwvdGQ+PH OpFJA0xIsi EPsyXCRpmD6oUNEyR9z3Dl YiHlT8IFebI5UfQNFnvqjq Uz97mX1sQfDvScF1JNkrF5 DmuoX5DBHn jNKnMLqyVUZ8L71bg9Z1BA ZoXUAoIQN1lAU2wB0zuIbu bjogbGVmdDsgdmVydGljYW pzOWoaD149 LYXouTgdRfLhBsP8XuM3Fk E3M0RnCpc5UTDjvPfmJS4h lRKzLNgtId5atEwuiNcoRX 4wNTBpbjtw DRAxkJ0hFHYyxBCaqGeaZQ 5cVKPmcmxph787LpSaYGU8 FKGkyULyI2LsxL3yCuYbMG VjYXDdN2Sw tDSlSPkrA920RUosGrJ0BW YpaxPoZ8UeAREqyFwyKbD6 k3D1Nl19MDQFEKGygsvaeW Q+PHRkIHN0 fLtiQBlyTZRtcW1nMNCkR9 u1HzRdCeB5HYciZ6EhABPo atwoTu03sY2wXrZsXqI5KL jvM0OdhxF8 QHBlqAQsCQntHGD4C10gq3 G9JCTqGRKlFBN4bGW1uZ7q bGlnbjogbGVmdDsgdmVydG ljYWwtYWxp R313OIGrmKftQwVxtDByKE wvdGQ+CHPeWZI3yAwhGNzk ZKGseR4lECShB1n3TeLvXj N4KVfoY8Xl JCZmtiabVv24iD4mRtIgTg L0AWtuB6CblkZ5WELraLHx MIhlZYE2D62ie7X8TCYqVP QxLXU7fMC7 nE5urWkgbrosoWQcuNiueo VyxIneLNlgBDsdE663YELr mYavIk91jLZgoIwdppP9T1 RkPjwvdHI+ RV85YWUlHT33lIBxjOXog5 lloQm5LrYrXRBuZRS8kHvk CZhit2TnNEFnJ71xkGBba4 P0AHQzsDlv iZBiWsXtjGN7mR8tVMgvhy eyq6jnwnmrJxonc8gzfo93 rI37W41ySMfqQXOgGMLtHH UiIHZhbGln ro2clZ9kTq1+GCQviTY1xT M0oZ9jScQoOdU5YYdfH769 IpFoeXNxZhjda4zew0taoY e7EcEsMXJn ouLtkNgwPHG9x1VoJw23L4 9sIHdpZHRoPSIyMCUiIHZh bCrnan4cpO6hUs0+PC9jb2 gwbc34bG08 dHI+LEBkKRO1wYmyKVsqKN LucY8bCBykMpE6KKVpWmBa eB23pVYvHTtcHb5ipStikK pcHV0tGNFp isfdo454RrGwr2mgKGDjlF SeXVphVEQ7E06gh2U6NOPb JBPtREA7bIO5sG0wlKsoqv ogbGVmdDsg iaUbvCsuMXecSUhjH517UP CifLdlUoSkaLMbE3xbkoLA GG4iJddmdWT+PGUwXMC1jP xlPSdwYWRk vC2yWSIeR1j4YdSrUnF8VA tqK4ZuixW9ROKfcXNvBAGv uKEBsC1dejzfq4gpljdjLn AwMDAwMDt0 UNl4THIhwVtrQpKsRSB0Ar W0TZS7fFLfwR4wcMwfvles bU5fXzp+RklOOjwvdGQ+PH KeZOJ4bNbk PBesLHOehE9eLCAiW0n5Zq GzXmQ0UIolW1OxcuL1BDNs tTEgBWVcsPKRtK0zozvnb0 xvcjogIzAw XURhUGb2WEh2PLSwnSluBa TnFVO2TiP5DOM5lMOmtT9s bQrmwprlqW3gRtp+TVJOOj wvdGQ+PHRk MPB0wLzdEFmxAAQjcU2kJC ZgI3q8AdNsEeW6GEfqQ0Rm hjU5HPYjyTJuLDJkoGFXqE 8zvdmwt2mz iwpxUrBmSZMrTGb5BMl1QY MsbAlmPsMhXTA2RfQ8EUY7 pRJbiE0bfPtkteomrN5lDd c+YRX9WZF9 RS31PW23X6BlHyisnICpyY U+PHRhYmxlIHdpZHRoPScx WMOpIhLcqEcyXT8tWf1uBM VyLWNvbGxh cHNl (more content not included)... Normal [facility] Consent for Treatmenton 12-01 Consent for Treatment [id number] Normal [facility] BMPon 12-19-2021 Anion gap [Moles/Vol] 14 mmol/L Normal 6-16 [facility] Comment on above: Performed By: #### 1 [id number] #### [facility] [address] [place] [address] Calcium [Mass/Vol] 9.6 mg/dL Normal 8.9-11.1 [facility] Comment on above: Performed By: #### 1 [id number] #### [facility] [address] [place] [address] Chloride [Moles/Vol] 105 mmol/L Normal 101-111 [facility] Comment on above: Performed By: #### 1 [id number], [id number] #### [facility] [address] [place] [address] CO2 [Moles/Vol] 27 mmol/L Normal 21-31 [facility] Comment on above: Performed By: #### 1 [id number], [id number] #### [facility] [address] [place] [address] Creatinine [Mass/Vol] 0.9 mg/dL Normal 0.5-1.3 [facility] Comment on above: Performed By: #### 1 [id number], [id number], [id number] #### [facility] [address] [place] [address] Glucose [Mass/Vol] 95 mg/dL Normal 55-199 [facility] Comment on above: Result Comment: If t his glucose result represents a fasting glucose, interpretation should refer to the following reference range: 55-99 mg/dL Performed By: #### 1 [id number], [id number], [id number] #### [facility] [address] [place] [address] Potassium [Moles/Vol] 4.3 mmol/L Normal 3.5-5.3 [facility] Comment on above: Performed By: #### 1 [id number], [id number], [id number] #### [facility] [address] [place] [address] Sodium [Moles/Vol] 142 mmol/L Normal 135-145 [facility] Comment on above: Performed By: #### 1 [id number], [id number] #### [facility] [address] [place] [address] Urea nitrogen [Mass/Vol] 23 mg/dL High 5-21 [facility] Comment on above: Performed By: #### 1 [id number], [id number], [id number] #### [facility] [address] [place] [address] Urea nitrogen/Creatinine [Mass ratio] 26 No Units High 10-20 [facility] Comment on above: Performed By: #### 1 [id number], [id number], [id number] #### [facility] [address] [place] [address] CBC w/Indiceson 12-19-2021 Erythrocyte distribution width (RBC) [Ratio] 13.3 % Normal 10.9-14.2 [facility] Comment on above: Performed By: #### 1 [id number], [id number], [id number] #### [facility] [address] [place] [address] Hematocrit (Bld) [Volume fraction] 38.6 % Normal 34.0-46.0 [facility] Comment on above: Performed By: #### 1 [id number], [id number], [id number] #### [facility] [address] [place] [address] Hemoglobin (Bld) [Mass/Vol] 13.6 g/dL Normal 12.0-16.0 [facility] Comment on above: Performed By: #### 1 [id number], [id number], [id number] #### [facility] [address] [place] [address] MCH (RBC) [Entitic mass] 31.1 pg Normal 27.0-34.0 [facility] Comment on above: Performed By: #### 1 [id number], 6050912, 0902362 #### [facility] [address] [place] [address] MCHC (RBC) [Mass/Vol] 35.2 g/dL Normal 31.4-36.0 [facility] Comment on above: Performed By: #### 1 [id number], 3067194, 2399457 #### [facility] [address] [place] [address] MCV (RBC) [Entitic vol] 88.2 fL Normal 80.0-100.0 [facility] Comment on above: Performed By: #### 1 [id number], 8518993, [id number] #### [facility] [address] [place] [address] Platelet mean volume (Bld) [Entitic vol] 8.2 fL Normal 6.4-10.8 [facility] Comment on above: Performed By: #### 1 [id number], 1337243, 5298162 #### [facility] [address] [place] [address] Platelets (Bld) [#/Vol] 231.0 E9/L Normal 150.0-500.0 [facility] Comment on above: Performed By: #### 1 [id number], 3049344, 0467027 #### [facility] [address] [place] [address] RBC (Bld) [#/Vol] 4.4 E12/L Normal 4.3-5.9 [facility] Comment on above: Performed By: #### 1 [id number], 0485892, 6024864 #### [facility] [address] [place] [address] WBC corrected for nucl RBC Auto (Bld) [#/Vol] 4.5 E9/L Normal 4.0-11.0 [facility] Comment on above: Performed By: #### 1 [id number], 4837762, 9293919 #### [facility] [address] [place] [address] Consent for Treatmenton 12-01 Consent for Treatment [id number] 0CD:127 Normal [facility] Physician Orderon 12-19-2021 Physician Order [id number]. 00CD:127 Normal [facility] XR Chest 2 Viewson XR Chest [...] V. Transcribed by: DELICIA Technologist: RH Normal [facility] eGFRon 12-19-2021 GFR/1.73 sq M.predicted among blacks MDRD (S/P/Bld) [Vol rate/Area] mL/min/{1.73_m2} Normal >=59 [facility] Comment on above: Order Comment: Order added by Discern Expert. Result Comment: eGFR is race adjusted. AA=. Performed By: #### 1 [id number], 0811131, [id number] #### [facility] [address] [place] [address] GFR/1.73 sq M.predicted among non-blacks MDRD (S/P/Bld) [Vol rate/Area] mL/min/{1.73_m2} Normal >=59 [facility] Comment on above: Order Comment: Order added by Discern Expert. Result Comment: [employer] kary kidney disease could be indicated at eGFR's of less than 60 mL/min/1.73m2. Kidney failure is indicated at less than 15 mL/min/1.73m2. Performed By: #### 1 [id number], 0883000, [id number] #### [facility] [address] [place] [address] Physician Orderon 12-06-2021 Physician Order [id number]. 00CD:127 Normal [facility] RAD - MISCon 11-04-2021 RAD - MISC [id number]. 00CD:127 Normal [facility] MR knee RT wo conon 08-30-20 MR knee RT wo con [facility] [place] [address] MRI Report Signed Patient: Cony Matos MR#: [id number] [birth year] : 1960 Acct:[id number] Age/Sex: 60 / F ADM Date: 08/30/21 Loc: [facility] Room: Type: [facility] Attending Dr: Jose A Petersen MD Ordering [...] Jamarcus Prado M.D.08/30/2021 11:36 AM Dictation Location: [place] [address] Transcribed By: [facility] 08/30/21 1136 Dictated By: Jamarcus Prado II, MD 08/30/21 1120 Signed By: 08/30/21 1136 [facility] XR knee RT 2Von 08-22-2021 XR knee RT 2V [facility] [place] [address] [place] [address] XRay Report Signed Patient: Cony Matos MR#: [id number] [birth year] : 1960 Acct:[id number] Age/Sex: 60 / F ADM Date: 08/22/21 Loc: [facility] Room: Type: [facility] Attending Dr: Jose A Petersen MD Ordering Provider: Jose A Petersen MD Date of Service: 08/22/21 XR/XR knee RT 2V: Acute pain of right knee Copies to: Jsoe A Petersen MD XR knee RT 2V [...] Jamarcus Prado M.D.08/22/2021 1:26 PM Dictation Location: [place] [address] Transcribed By: [facility] 08/22/21 1326 Dictated By: Jamarcus Prado II, MD 08/22/21 1325 Signed By: 08/22/21 1326 Normal [facility] Cardiovascular Lab Reporton 05-17-2019 Cardiovascular Lab Report [facility] Patient Name: Cony Matos MR #: [id number] Department of Physician: Rico James M.D. Division of Service Date: 05/17/2019 Cardiology Birthdate: 1960 Adult Cardiovascular Room #: [place] [address] Cardiovascular Laboratory Report INDICATION: The patient is [...] signed informed consent. 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 The right neck area was prepped and draped in usual fashion. Using ultrasound guidance and micropuncture technique, the right internal jugular vein was accessed. A 6-Croatian x 11 cm sheath was placed. A 6-Croatian Irvin catheter was used for right heart catheterization with measurement of pressures and calculation of cardiac output using the estimated Sherman method. Irvin catheter was removed. Jamar's test was favorable on the right. Access in the right radial artery was obtained using micropuncture technique, a 5-Croatian 11 cm Hydrophilic sheath was advanced. Verapamil was given through the sheath and heparin was administered intravenously. Bilateral selective coronary angiography was then performed using a 6-Croatian JL5 diagnostic catheter. This catheter was removed. [...] Rico James M.D. Date Dict: 05/17/2019/12:19 P/Rico Jamse M.D. Date Trans: 05/17/2019 01:54 P/mmo [id number] cc: Paddy Stone M.D. [address], [facility] [facility] [address] [facility] Vital Signs Date Time Vital Sign Value Performing Clinician Facility 10-20-2024 14:45-0500 Body height 162.6 cm Kiana Lemons DO Work Phone: [facility] 10-20-2024 14:45-0500 Body mass index (BMI) [Ratio] 28.84 kg/m2 Kiana Lemons DO Work Phone: [facility] 10-20-2024 14:45-0500 Body temperature 97.11 [degF] Kiana Lemons DO Work Phone: [facility] 10-20-2024 14:45-0500 Body weight 76.2 kg Kiana Lemons DO Work Phone: [facility] 08-22-2021 10:00-0400 Body height 167.64 cm Jose A Petersen Other [facility] Other 08-22-2021 10:00-0400 Body mass index (BMI) [Ratio] 25.01 kg/m2 Jose A Petersen Other [facility] Other 08-22-2021 10:00-0400 Body weight 70.31 kg Jose A Petersen Other [facility] Other Encounters Encounter Date Encounter Type Care [...] without abnormal findings DR PADDY STONE . [facility] Start: 11-03-2022 End: 11-03-[address] PADDY [...] End: 10-03-2021 ambulatory Jose A Petersen Other [facility] Other Start: 10-03-2021 Telephone encounter Jose A Petersen [facility] Start: 08-22-2021 Office outpatient ne w 45 minutes Jose A Petersen [facility] Start: 05-17-2019 End: 05-18-2019 Patient encounter procedure PROVIDER UNKNOWN Facility:[facility] Procedures Date Procedure Procedure Detail Performing Clinician Start: 10-20-2024 Radex hip unilateral with pelvis 2-3 views Kiana Lemons DO Work Phone: Plan of Treatment Date Care Activity Detail Author Start: 03-06-2025 End: 03-06-2025 Patient encounter procedure 03/06/2025 3:00 PM EDT Office Visit [facility] [address] [place] [address] Andrew Stahl DO [address] [place] [address] [facility] Start: 07-31-2024 Influenza vaccination Influenza Vacc ine (#1) [facility] Start: 2001 Screening for malign ant neoplasm of breast Mammogram [facility] Start: 1991 Screening for malign ant neoplasm of cervix [facility] Start: 1982 Screening for malign ant neoplasm of cervix Pap Smear [facility] Start: 1961 Screening for malign ant neoplasm of colon [facility] XR Hip - right 3 Views XR hip ri ght 2 or 3 views Imaging Routine Left hip pain 10/20/2024 2:49 PM EST [facility] Work Phone: Payers Date Payer Category Payer Private Health Insurance [facility] [id number] 1960 Unknown [id number] .2.647 1960 Unknown [id number] 2.840.1.648084.3.579 .2.593 1960 Unknown [id number] 2.0.1.283010.3.579 .2.593 1960 Unknown [id number] 2.16.840.1.661116.3.579 .2.593 1961 Unknown [id number] 2.16.840.1.593258.3.579 .2.593 1961 Unknown [id number] 2.16.840.1.542319.3.579 .2.593 1961 Unknown [id number] 2.16.840.1.189958.3.579 .2.593 1961 Unknown [id number] 2.16.840.1.445848.3.579 .2.593 1961 Unknown [id number] 2.16.840.1.801479.3.579 .2.593 1960 Unknown [id number] 2.16.840.1.730741.3.579 .2.1259 1960 Unknown [id number] 2.16.840.1.131140.3.579 .2.1259 1958 Self-pay 1958 Unknown [id number] Social History Date Type Detail Facility Start: 10-20-2024 Sex Assigned At N [facility] Other Start: 10-20-2024 Tobacco smoking stat [facility] Never smoked tobacco [facility] Start: 10-20-2024 Tobacco use and exposure Smokeless tobacco non-user [facility] Start: 10-20-2024 Alcoholic beverage intake Ex-drinker (finding) [facility] Start: 10-20-2024 History of Social function [facility] Start: 1960 Sex assigned at Not on file [facility] Start: 06-23-2024 Gender identity Identifies as female gender (finding) [facility] History of Present illness Narrative 10-20-2024 [...] AP pelvis, right hip taken in the [place] office saved to the permanent record shows [...] time, healing, commitment and expectations. We discussed nursing home definitive role of total hip replacement. Indications [...] of pain and plan potential surgical treatment. [employer] Other Evaluation note Note Date & Type Note Facility Evaluation note No Information [employer] Other Evaluation note Note Date & Type Note Facility Evaluation note Diagnosis Left hip pain- Primary Pain in joint, pelvic region and thigh documented in this encounter [facility] History general Narrative - Reported Note Date & Type Note Facility History general Narrative - Reported Type Surgical History C section x3 Surgical History hysterectomy Surgical History gall bladder Hospitalization History see above [employer] Other Summary Purpose Family History No Family [...] section and content) DATE CREATED AUTHOR 07/12/2019 [facility] DATE CREATED AUTHOR AUTHOR'S ORGANIZ ATION 01/16/2022 [facility] DATE CREATED AUTHOR AUTHOR'S ORGANIZ ATION 02/21/2022 [facility] DATE CREATED AUTHOR AUTHOR'S ORGANIZ ATION 10/03/2022 [facility] DATE CREATED AUTHOR AUTHOR'S ORGANIZ ATION 04/09/2023 [facility] DATE CREATED AUTHOR AUTHOR'S ORGANIZ ATION 10/23/2024 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 [facility] [employer] [facility]. provides no warranty or guarantee of the accuracy or completeness of information in this document.
[2025-01-25 07:16] LABS: Basophils Absolute Auto 0.1 10^3/uL (0.0-0.1); Eosinophils Absolute Auto 0.5 10^3/uL (0.0-0.7); Eosinophils Percent Auto 10.4 % (0.9-7.0); Hemoglobin 13.4 g/dL (12.0-16.0); Immature Granulocytes Abs Auto 0.01 10^3/uL (0.00-0.03); Immature Granulocytes Pct Auto 0.2 % (0.0-0.5); Lymphocytes Percent Auto 43.6 % (20.5-60.0); Mean Corpuscular HGB Conc 34.4 g/dL (29.9-35.2); Mean Corpuscular Hemoglobin 30.6 pg (26.7-34.0); Monocytes Absolute Auto 0.4 10^3/uL (0.3-0.8); Monocytes Percent Auto 9.1 % (1.7-12.0); Neutrophils Absolute Auto 1.6 10^3/uL (1.4-6.5); Neutrophils Percent Auto 34.7 % (43.0-75.0); Platelet Count 253 10^3/uL (150-450); Red Blood Count 4.38 10^6/uL (4.20-5.40); Red Cell Distribution Width 12.8 % (11.0-15.0); White Blood Count 4.6 10^3/uL (4.0-11.0)
[2025-01-25 07:57] LABS: Estimated Average Glucose 94 mg/dL; Glycohemoglobin A1C 4.9 % (4.5-6.2)
[2025-01-25 08:10] LABS: Alanine Aminotransferase 35 U/L (14-59); Albumin Level 3.5 g/dL (3.4-5.0); Alkaline Phosphatase 79 U/L (46-116); Anion Gap 9.4; Aspartate Amino Transferase 18 U/L (15-37); BUN Creatinine Ratio 21.5; Bilirubin Total 0.5 mg/dL (0.2-1.0); Calcium 9.1 mg/dL (8.5-10.1); Chloride 105 mmol/L (98-107); Chol HDL Ratio 3.1; Cholesterol 205 mg/dL (<=200); Estimated GFR (African America >60 (>=60 mL/min/1.73m^2); Estimated GFR (Non-African Ame >60 (>=60 mL/min/1.73m^2); Free T3 2.33 pg/mL (2.18-3.98); Globulin 3.4 g/dL; Glucose 93 mg/dL (74-106); HDL Cholesterol 66 mg/dL (40-60); Potassium 4.4 mmol/L (3.5-5.1); Sodium 138 mmol/L (136-145); Total Protein 6.9 g/dL (6.4-8.2); Triglycerides 67 mg/dL (<=150); VLDL CHOLESTEROL 13.4 mg/dL
[2025-01-25 14:03] LABS: Internal Control Within Normal Limits; Occult Blood Positive
== END 2025-01-25 06:41 | disposition home or self-care (01) ==
LOC: LAB 06:42
PROVIDERS: PCP Family Medicine; Visit Provider Family Medicine
DX: R19.7 Diarrhea, unspecified (principal); J18.9 Pneumonia, unspecified organism; R10.9 Unspecified abdominal pain; R53.83 Other fatigue
CPT/HCPCS: 36415; 80053; 80061; 82306; 83036; 84436; 84443; 84481; 85025; G0328

== ENCOUNTER 2025-03-06 21:14 | Outpatient (REF) | payer OTHER, SELFPAY ==
--- OUTSIDE RECORDS SUMMARY | 2025-03-06 21:31 | XMS_ITS | CCD ---
Author Organization [facility] Care Team Providers Care Poleyard Supervisor Name Role Phone UNKNOWN, PROVIDER Admitting Unavailable UNKNOWN, PROVIDER Attending Unavailable PADDY STONE Referring Unavailable PADDY STONE Primary Care Unavailable Jose A Petersen Unavailable ARDEN ., DR THOMASON Primary Care Unavailable HOY ., DR THOMASON Consulting Unavailable HOY ., DR THOMASON Attending Unavailable HOY ., DR THOMASON Admitting Unavailable VERGENNES, DR WALDO Perkins Consulting Unavailable HOY ., [...] HOY ., DR THOMASON Primary Care Unavailable MARIBETH ., DR MORALES Admitting Unavailable MARIBETH ., DR MORALES Consulting Unavailable MARIBETH ., DR MORALES Attending Unavailable ZIEBER, DR OWEN Penn Consulting Unavailable MARIBETH ., DR MORALES Attending Unavailable HOY ., DR THOMASON Primary Care Unavailable MARIBETH ., DR MORALES Admitting Unavailable MARIBETH ., DR MORALES Consulting Unavailable HOY ., DR THOMASON Admitting Unavailable HOY ., DR THOMASON Primary Care Unavailable HOY ., DR THOMASON Attending Unavailable ADRIANA LITTLE Admitting Unavailable ADRIANA LITTLE Attending Unavailable ARDEN ., DR THOMASON Primary Care Unavailable KIANA LEMONS Referring Unavailable KIANA LEMONS Attending Unavailable KIANA LEMONS Referring Unavailable Paddy Stone MD Primary Care Provider [phone] Allergies Allergy Classification Reported Allergen(s) Allergy Type Date of Onset Reaction(s) Facility (3 sources) Acetaminophen / oxyCODONE Drug Allergy 10-19-20 14 [facility] (1 source) Sulfamethoxazole / Trimethoprim Drug Allergy 05-17-20 19 [facility] (2 sources) Acetaminophen / oxyCODONE Drug Allergy Unknown [employer] [facility] Other (4 sources) Latex Propensity to adverse reactions Unknown [employer] Other (2 sources) Sulfacetamide / Sulfur Drug Allergy Unknown [facility] [employer] Other (5 sources) Sulfamethoxazole / Trimethoprim Drug Allergy 10-20-20 24 Unknown [facility] [employer] Other (2 sources) Codeine Drug Allergy 10-12-20 14 [facility] Repository (2 sources) Latex Drug allergy (disorder) 10-25-20 14 [facility] (1 source) Sulfamethoxazole / Trimethoprim Drug Allergy 01-08-20 17 [facility] (1 source) Sulfonamides (Antibiotic) Drug allergy (disorder) 01-08-20 17 [facility] (3 sources) Acetaminophen Drug Allergy 02-08-20 20 [facility] Healthcare (3 sources) Codeine Drug Allergy 10-20-20 24 [facility] (4 sources) Estrogens; Translations: [estrogens] Drug Allergy 10-20-20 Shortness of breath [facility] (3 sources) Latex Allergy to substance 05-16-20 09 Itching [facility] Healthcare (3 sources) oxyCODONE Drug Allergy 02-08-20 20 [facility] (3 sources) Sulfamethoxazole Allergy to substance 02-08-20 [facility] (3 sources) Trimethoprim Drug Allergy 02-08-20 20 [facility] Medications Current Medications Medication Drug Class(es) Dates Sig (Normalized) Sig (Original) albuterol 0.83 mg/ml inhalation solution (3 sources) beta2-Adrenergic Agonist Start: 09-05-2024 albuterol (2.5 MG/3ML) 0.083% nebulizer solution INHALE 3 ML EVERY 6 HOURS NEEDED 09/05/2024 Active montelukast 10 mg oral tablet (3 sources) Leukotriene Receptor Antagonist Start: 08-11-2024 take [...] 04-02-2023 Creatinine [Mass/Vol] 0.80 mg/dL Normal 0.55-1.02 [facility] Comment on above: Performed By: #### L IPID, CMP, T7, TSH #### [facility] [address], [place] [address] Dr. Nga Ribeiro EGFR-AF KENYAN >60 Normal >=60 [facility] Comment on above: Performed By: #### L IPID, CMP, T7, TSH #### [facility] [address], [place] [address] Dr. Nga Ribeiro EGFR-NON AF KENYAN >60 Normal >=60 [facility] Comment on above: Performed By: #### L IPID, CMP, T7, TSH #### [facility] [address], [place] [address] ABD/PELV W CONon [...] WALDO BUSTAMANTE Date: 2023-04-02 15:30 Normal [facility] OCC BLD IMMUNO SCREENon OCCULT BLOOD Negative Normal NEGATIVE [facility] Comment on above: Performed By: #### O BSCRN #### [facility] [address] [place] [address] Dr. Nga Ribeiro INSULINon 10-31-2022 Insulin 8.8 uIU/mL Normal 2.6-24.9 [facility] Comment on above: Performed By: #### L IPID, CMP, T7, TSH #### [facility] [address] [place] [address] Dr. Nga Ribeiro CBC AUTO DIFFon 10-30-2022 BASO # 0.1 103/ul Normal 0.0-0.1 [facility] Comment on above: Performed By: #### L IPID, CMP, T7, TSH #### [facility] [address] [place] [address] Dr. Nga Ribeiro Basophils/100 WBC (Bld) 1.4 % Normal 0.2-2.0 [facility] Comment on above: Performed By: #### L IPID, CMP, T7, TSH #### [facility] [address] [place] [address] Dr. Nga Ribeiro EO # 0.3 103/ul Normal 0.0-0.7 [facility] Comment on above: Performed By: #### L IPID, CMP, T7, TSH #### [facility] [address] [place] [address] Dr. Nga Ribeiro Eosinophils/100 WBC (Bld) 6.3 % Normal 0.9-7.0 [facility] Comment on above: Performed By: #### L IPID, CMP, T7, TSH #### [facility] [address] [place] [address] Dr. Nga Ribeiro Erythrocyte distribution width (RBC) [Ratio] 12.7 % Normal 11.0-15.0 [facility] Comment on above: Performed By: #### L IPID, CMP, T7, TSH #### [facility] [address] [address] [address] Nga Ribeiro Hematocrit (Bld) [Volume fraction] 40.4 % Normal 36.0-48.0 [facility] Comment on above: Performed By: #### L IPID, CMP, T7, TSH #### [facility] [address] [place] [address] Dr. Nga Ribeiro Hemoglobin (Bld) [Mass/Vol] 13.8 g/dL Normal 12.0-16.0 [facility] Comment on above: Performed By: #### L IPID, CMP, T7, TSH #### [facility] [address] [place] [address] Dr. Nga Ribeiro IG # 0.01 10e3/ul Normal 0.00-0.03 [facility] Comment on above: Performed By: #### L IPID, CMP, T7, TSH #### [facility] [address] [place] [address] Dr. Nga Ribeiro IG % 0.2 % Normal 0.0-0.5 [facility] Comment on above: Performed By: #### L IPID, CMP, T7, TSH #### [facility] [address] [place] [address] Dr. Nga Ribeiro LYMPH # 1.9 103/ul Normal 1.2-3.8 [facility] Comment on above: Performed By: #### L IPID, CMP, T7, TSH #### [facility] [address] [place] [address] Dr. Nga Ribeiro Lymphocytes/100 WBC (Bld) 46.4 % Normal 20.5-60.0 [facility] Comment on above: Performed By: #### L IPID, CMP, T7, TSH #### [facility] [address] [place] [address] Dr. Nga Ribeiro MANUAL DIFF REQ NO Normal [facility] Comment on above: Performed By: #### L IPID, CMP, T7, TSH #### [facility] [address] [place] [address] Dr. Nga Ribeiro MCH (RBC) [Entitic mass] 30.6 pg Normal 26.7-34.0 [facility] Comment on above: Performed By: #### L IPID, CMP, T7, TSH #### [facility] [address] [place] [address] Dr. Nga Ribeiro MCHC (RBC) [Mass/Vol] 34.2 g/dL Normal 29.9-35.2 [facility] Comment on above: Performed By: #### L IPID, CMP, T7, TSH #### [facility] [address] [place] [address] Dr. Nga Ribeiro MCV (RBC) [Entitic vol] 89.6 fL Normal 81.0-99.0 [facility] Comment on above: Performed By: #### L IPID, CMP, T7, TSH #### [facility] [address] [place] [address] Dr. Nga Ribeiro MONO # 0.4 103/ul Normal 0.3-0.8 [facility] Comment on above: Performed By: #### L IPID, CMP, T7, TSH #### [facility] [address] [place] [address] Dr. Nga Ribeiro Monocytes/100 WBC (Bld) 9.1 % Normal 1.7-12.0 [facility] Comment on above: Performed By: #### L IPID, CMP, T7, TSH #### [facility] [address] [place] [address] Dr. Nga Ribeiro NEUT # 1.5 103/ul Normal 1.4-6.5 [facility] Comment on above: Performed By: #### L IPID, CMP, T7, TSH #### [facility] [address] [place] [address] Dr. Nga Ribeiro Neutrophils/100 WBC (Bld) 36.6 % Critically low 43.0-75.0 [facility] Comment on above: Performed By: #### L IPID, CMP, T7, TSH #### [facility] [address] [place] [address] Dr. gNa Ribeiro Platelet mean volume (Bld) [Entitic vol] 9.2 fL Critically low 9.5-13.5 [facility] Comment on above: Performed By: #### L IPID, CMP, T7, TSH #### [facility] [address] [address] [address] Nga Ribeiro PLT 194 103/ul Normal 150-450 [facility] Comment on above: Performed By: #### L IPID, CMP, T7, TSH #### [facility] [address] [address] [address] Nga Ribeiro RBC 4.51 106/ul Normal 4.20-5.40 [facility] Comment on above: Performed By: #### L IPID, CMP, T7, TSH #### [facility] [address] [place] [address] Dr. Nga Ribeiro WBC 4.2 103/ul Normal 4.0-11.0 [facility] Comment on above: Performed By: #### L IPID, CMP, T7, TSH #### [facility] [address] [place] [address] Dr. Nga Ribeiro FREE THYROXINE INDEX T7on FTI 2.66 Normal 1.30-4.50 [facility] Comment on above: Performed By: #### L IPID, CMP, T7, TSH #### [facility] [address] [place] [address] Dr. Nga Ribeiro T3U 36.0 % Normal 30.0-39.0 [facility] Comment on above: Performed By: #### L IPID, CMP, T7, TSH #### [facility] [address] [place] [address] Dr. Nga Ribeiro T4 [Mass/Vol] 7.40 ug/dL Normal 4.80-13.90 [facility] Comment on above: Performed By: #### L IPID, CMP, T7, TSH #### [facility] [address] [place] [address] Dr. Nga Ribeiro GLYCOHEMOGLOBIN A1Con 2021 ADA RECOMMENDATION SEE BELOW Normal [facility] Comment on above: Result Comment: ADA RECOMMENDED LIMIT 4.0 - 6.0 ADA THERAPEUTIC TARGET < 7.0 ACTION SUGGESTED > 7.0 Performed By: #### A 1C #### [facility] [address] [place] [address] Dr. Nga Ribeiro Glucose [Mass/Vol] 94 mg/dL Normal [facility] Comment on above: Performed By: #### A 1C #### [facility] [address] [address] [address] Nga Ribeiro HbA1c (Bld) [Mass fraction] 4.9 % Normal 4.5-6.2 [facility] Comment on above: Performed By: #### A 1C #### [facility] [address] [place] [address] Dr. Nga Ribeiro IRONon 10-30-2022 Iron [Mass/Vol] 119.0 ug/dL Normal 50.0-170.0 [facility] Comment on above: Performed By: #### I CHARISMA #### [facility] [address] [place] [address] Dr. Nga Ribeiro LIPID PROFILEon 10-30-2022 CHOL-HDL RATIO NORM SEE BELOW Normal [facility] Comment on above: Result Comment: 3.3 - 4.4 LOW RISK 4.4 - 7.1 AVERAGE RISK 7.1 - 11.0 MODERATE RISK >11.0 HIGH RISK Performed By: #### L IPID, CMP, T7, TSH #### [facility] [address] [place] [address] Dr. Nga Ribeiro Cholesterol [Mass/Vol] 201 mg/dL Critically high <=200 [facility] Comment on above: Performed By: #### L IPID, CMP, T7, TSH #### [facility] [address] [address] [address] Nga Ribeiro Cholesterol in HDL [Mass/Vol] 78 mg/dL Critically high 40-60 [facility] Comment on above: Performed By: #### L IPID, CMP, T7, TSH #### [facility] [address] [address] [address] Nga Ribeiro Cholesterol in LDL [Mass/Vol] 108.8 mg/dL Normal [facility] Comment on above: Performed By: #### L IPID, CMP, T7, TSH #### [facility] [address] [address] [address] Nga Ribeiro Cholesterol.total/Ch olesterol in HDL [Mass ratio] 2.6 {ratio} Normal [facility] Comment on above: Performed By: #### L IPID, CMP, T7, TSH #### [facility] [address] [address] [address] Nga Ribeiro HDL NORMAL > or = 60 mg/dl - LO W CARDIOVASCULAR RISK <40 mg/dl - HIGH CARDIOVASCULAR RISK Normal [facility] Comment on above: Performed By: #### L IPID, CMP, T7, TSH #### [facility] [address] [address] [address] Nga Ribeiro LDL CALC NORMAL SEE BELOW Normal [facility] Comment on above: Result Comment: <100 mg/dl OPTIMAL 100 - 129 mg/dl NEAR OR ABOVE OPTIMAL 130 - 159 mg/dl BORDERLINE HIGH 160 - 189 mg/dl HIGH >190 mg/dl VERY HIGH Performed By: #### L IPID, CMP, T7, TSH #### [facility] [address] [address] [address] Nga Ribeiro Triglyceride [Mass/Vol] 71 mg/dL Normal <=150 [facility] Comment on above: Performed By: #### L IPID, CMP, T7, TSH #### [facility] [address] [address] [address] Nga Ribeiro VLDL CALC 14.2 mg/dL Normal [facility] Comment on above: Performed By: #### L IPID, CMP, T7, TSH #### [facility] [address] [address] [address] Nga Ribeiro PROF 14(COMP METB)on 022 Albumin [Mass/Vol] 3.8 g/dL Normal 3.4-5.0 [facility] Comment on above: Performed By: #### L IPID, CMP, T7, TSH #### [facility] [address] [address] [address] Nga Ribeiro Albumin/Globulin [Mass ratio] 1.1 {ratio} Normal [facility] Comment on above: Performed By: #### L IPID, CMP, T7, TSH #### [facility] [address] [place] [address] Dr. Nga Ribeiro ALP [Catalytic activity/Vol] 91 U/L Normal 46-116 [facility] Comment on above: Performed By: #### L IPID, CMP, T7, TSH #### [facility] [address] [place] [address] Dr. Nga Ribeiro ALT [Catalytic activity/Vol] 19 U/L Normal 14-59 [facility] Comment on above: Performed By: #### L IPID, CMP, T7, TSH #### [facility] [address] [place] [address] Dr. Nga Ribeiro Anion gap [Moles/Vol] 9.2 mmol/L Normal [facility] Comment on above: Performed By: #### L IPID, CMP, T7, TSH #### [facility] [address] [place] [address] Dr. Nga Ribeiro AST [Catalytic activity/Vol] 18 U/L Normal 15-37 [facility] Comment on above: Performed By: #### L IPID, CMP, T7, TSH #### [facility] [address] [place] [address] Dr. Nga Ribeiro Bilirubin [Mass/Vol] 0.5 mg/dL Normal 0.2-1.0 [facility] Comment on above: Performed By: #### L IPID, CMP, T7, TSH #### [facility] [address] [place] [address] Dr. Nga Ribeiro Calcium [Mass/Vol] 9.5 mg/dL Normal 8.5-10.1 [facility] Comment on above: Performed By: #### L IPID, CMP, T7, TSH #### [facility] [address] [place] [address] Dr. Nga Ribeiro Chloride [Moles/Vol] 105 mmol/L Normal 98-107 [facility] Comment on above: Performed By: #### L IPID, CMP, T7, TSH #### [facility] [address] [address] [address] Nga Ribeiro CO2 [Moles/Vol] 29.5 mmol/L Normal 21.0-32.0 [facility] Comment on above: Performed By: #### L IPID, CMP, T7, TSH #### [facility] [address] [address] [address] Nga Ribeiro Creatinine [Mass/Vol] 0.68 mg/dL Normal 0.55-1.02 [facility] Comment on above: Performed By: #### L IPID, CMP, T7, TSH #### [facility] [address] [address] [address] Nga Ribeiro EGFR-AF KENYAN >60 Normal >=60 [facility] Comment on above: Performed By: #### L IPID, CMP, T7, TSH #### [facility] [address] [place] [address] Dr. Nga Ribeiro EGFR-NON AF KENYAN >60 Normal >=60 [facility] Comment on above: Performed By: #### L IPID, CMP, T7, TSH #### [facility] [address] [place] [address] Dr. Nga Ribeiro Globulin (S) [Mass/Vol] 3.6 g/dL Normal [facility] Comment on above: Performed By: #### L IPID, CMP, T7, TSH #### [facility] [address] [address] [address] Nga Ribeiro Glucose [Mass/Vol] 100 mg/dL Normal 74-106 [facility] Comment on above: Performed By: #### L IPID, CMP, T7, TSH #### [facility] [address] [address] [address] Nga Ribeiro Potassium [Moles/Vol] 4.7 mmol/L Normal 3.5-5.1 [facility] Comment on above: Performed By: #### L IPID, CMP, T7, TSH #### [facility] [address] [place] [address] Dr. Nga Ribeiro Protein [Mass/Vol] 7.4 g/dL Normal 6.4-8.2 [facility] Comment on above: Performed By: #### L IPID, CMP, T7, TSH #### [facility] [address] [address] [address] Nga Ribeiro Sodium [Moles/Vol] 139 mmol/L Normal 136-145 [facility] Comment on above: Performed By: #### L IPID, CMP, T7, TSH #### [facility] [address] [address] [address] Nga Ribeiro Urea nitrogen [Mass/Vol] 19.0 mg/dL Critically high 7.0-18.0 [facility] Comment on above: Performed By: #### L IPID, CMP, T7, TSH #### [facility] [address] [address] [address] Nga Ribeiro Urea nitrogen/Creatinine [Mass ratio] 27.9 mg/mg Normal [facility] Comment on above: Performed By: #### L IPID, CMP, T7, TSH #### [facility] [address] [address] [address] Nga Ribeiro TSHon 10-30-2022 TSH 0.871 uIU/mL Normal 0.358-3.[address] [facility] Comment on above: Performed By: #### L IPID, CMP, T7, TSH #### [facility] [address] [place] [address] Dr. Nga Ribeiro Covid-19 PCR ([facility])on 10-01 SARS-CoV-2 (COVID-19) RNA VALENTINA+probe Ql (Unsp spec) Not detected Normal NOT DETECTED [facility] Comment on above: Result Comment: When [...] for this test is supported by the [place] of Health and Human Service's declaration that [...] used). Performed By: #### C VDTBH #### [facility] [address] [place] [address] Dr. Nga Ribeiro INFLUENZA A AND B AGon 10-22 [facility] SEE BELOW Normal [facility] Comment on above: Result Comment: Nega tive for Flu A protein angiten. Infection due to Flu A cannot be ruled out. Flu A angiten in the sample may be below the detection limit of the test. Performed By: #### L IPID, CMP, T7, TSH #### [facility] [address] [place] [address] Dr. Nga Ribeiro INFLUBNEG SEE BELOW Normal [facility] Comment on above: Result Comment: Nega tive for Flu B protein antigen. Infection due to Flu B cannot be ruled out. Flu B antigen in the sample may be below the detection limit of the test. Performed By: #### L IPID, CMP, T7, TSH #### [facility] [address] [place] [address] Dr. Nga Ribeiro INFLUENZA A AG Negative Normal NEGATIVE SEE COMMENT [facility] Comment on above: Performed By: #### L IPID, CMP, T7, TSH #### [facility] [address] [place] [address] Dr. Nga Ribeiro INFLUENZA B AG Negative Normal NEGATIVE SEE COMMENT [facility] Comment on above: Performed By: #### L IPID, CMP, T7, TSH #### [facility] [address] [place] [address] Dr. Nga Ribeiro INTERNAL CONTROLS Within Normal Limits Normal Wi thin Normal Limits [facility] Comment on above: Performed By: #### L IPID, CMP, T7, TSH #### [facility] [address] [place] [address] Dr. Nga Ribeiro MRI Shoulder w/o Lefton [...] by Maulik Stewart on 10/02/2022 1335 Normal [facility] Grant Manager MG MAMM SCREEN 3D ZARI CADon 06-16-2022 MG MAMM SCREEN 3D ZARI CAD Patient: CONY MATOS Exam Date: 06/16/2022 : 1960 Gender:F Ordering : DR ANDREW ORTEGA . Admission #: [id number] Family : Order #: [id number] CLICK HERE TO VIEW EXAM RADIOLOGY REPORT PROCEDURE: MAMMOGRAM SCREENING 3D BILATERAL CAD COMPARISON: MG MAMM SCREEN ZARI W CAD, 11/01/2018. MG MAMM SCREEN ZARI W CAD, 07/17/2017. DIGITIZED_MAMMO, 12/29/2008. MG MAMM SCREEN ZAIR W CAD, 01/16/2020. INDICATIONS: Screening mammography Calculator Name NCI Breast Cancer Risk Assessment Tool 5 Year Breast Cancer Risk 1.50% Lifetime Breast Cancer Risk 7.70% Personal Breast Cancer No Personal Ovarian Cancer No Treatments Excision Family Cancers None LOCATION: [facility] BREAST COMPOSITION: Scattered areas fibroglandular density. [...] Owen Nixon M.D. on 06/16/2022 at 13:28 [facility] PAP ACOG PANEL 2: 30 to 65on 05-30-2022 . . Normal [facility] Comment on above: Result Comment: Perf ormed at: WB Performed By: #### L IPID, CMP, T7, TSH #### [facility] [address] [address] [address] Nga Ribeiro Age Gdln ACOG Testing [facility] Comment on above: Performed By: #### L IPID, CMP, T7, TSH #### [facility] [address] [place] [address] Dr. Nga Ribeiro DIAGNOSIS: Comment Normal [facility] Comment on above: Result Comment: UNSA TISFACTORY FOR EVALUATION. Performed at: WB Performed By: #### L IPID, CMP, T7, TSH #### [facility] [address] [place] [address] [address] Nga Ribeiro HPV Aptima Negative Normal [facility] Comment on above: Result Comment: This nucleic acid amplification test detects fourteen high-risk HPV types (16,18,31,33,35,39,45,51,52,56,58,59,66,68) without differentiation. Performed at: =G Performed By: #### L IPID, CMP, T7, TSH #### [facility] [address] [place] [address] [address] Nga Ribeiro Methodology: Comment Normal [facility] Comment on above: Result Comment: This liquid based ThinPrep(R) pap test was screened with the use of an image guided system. Performed at: WB Performed By: #### L IPID, CMP, T7, TSH #### [facility] [address] [place] [address] [address] Nga Ribeiro Note: Comment Normal [facility] Comment on above: Result Comment: [...] #### L IPID, CMP, T7, TSH #### [facility] [address] [place] [address] [address] Nga Ribeiro Performed by: Comment Normal [facility] Comment on above: Result Comment: Kolton Carpio, Sueding And Buffing Machine Operator (ASCP) Performed at: WB Performed By: #### L IPID, CMP, T7, TSH #### [facility] [address] [place] [address] [address] Nga Ribeiro QC reviewed by: Comment Normal [facility] Comment on above: Result Comment: Adore Sloan, Supervisory Sueding And Buffing Machine Operator (ASCP) Performed at: WB Performed By: #### L IPID, CMP, T7, TSH #### [facility] [address] [place] [address] [address] Nga Ribeiro Recommendation: Comment Normal [facility] Comment on above: Result Comment: Sugg est follow up as clinically appropriate. Performed at: WB Performed By: #### L IPID, CMP, T7, TSH #### [facility] [address] [place] [address] [address] Nga Ribeiro Specimen adequacy: Comment Normal [facility] Comment on above: Result Comment: Spec imen processed and examined but unsatisfactory for evaluation of epithelial abnormality because of insufficient cellularity. Performed at: WB Performed By: #### L IPID, CMP, T7, TSH #### [facility] [address] [place] [address] [address] Nga Ribeiro MR knee RT wo tana 08-30-20 MR knee RT wo con [facility] [place] [address] [place] [address] MRI Report Signed Patient: Cony Matos MR#: [id number] 19 : 1960 Acct:[id number] Age/Sex: 60 / F ADM Date: 08/30/21 Loc: [facility] Room: Type: [facility] Attending Dr: Jose A Petersen MD [...] Jamarcus Prado M.D.08/30/2021 11:36 AM Dictation Location: [facility]12 Transcribed By: BIJAN 08/30/21 1136 Dictated By: Jamarcus Prado II, MD 08/30/21 1120 Signed By: 08/30/21 1136 [facility] XR knee RT 2Von 08-22-2021 XR knee RT 2V [facility] [place] [address] [place] [address] XRay Report Signed Patient: Cony Matos MR#: [id number] [birth year] : 1960 Acct:[id number] Age/Sex: 60 / F ADM Date: 08/22/21 Loc: [facility] Room: Type: [facility] Attending Dr: Jose A Petersen MD [...] Jamarcus Prado M.D.08/22/2021 1:26 PM Dictation Location: [place] [address] Transcribed By: BIJAN 08/22/21 1326 Dictated By: Jamarcus Prado II, MD 08/22/21 1325 Signed By: 08/22/21 1326 [facility] Cardiovascular Lab Reporton 05-17-2019 Cardiovascular Lab Report [facility] Patient Name: [facility] Ceasar MR #: [id number] Department of Physician: Rico James M.D. Division of Service Date: 05/17/2019 Cardiology Birthdate: 1960 Adult Cardiovascular Room #: [facility] [address] [place], [place] [address] Cardiovascular Laboratory Report INDICATION: The patient is [...] signed informed consent. 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 The right neck area was prepped and draped in usual fashion. Using ultrasound guidance and micropuncture technique, the right internal jugular vein was accessed. A 6-Senegalese x 11 cm sheath was placed. A 6-Senegalese Irvin catheter was used for right heart catheterization with measurement of pressures and calculation of cardiac output using the estimated Sherman method. Irvin catheter was removed. Jamar's test was favorable on the right. Access in the right radial artery was obtained using micropuncture technique, a 5-Senegalese 11 cm Hydrophilic sheath was advanced. Verapamil was given through the sheath and heparin was administered intravenously. Bilateral selective coronary angiography was then performed using a 6-Senegalese JL5 diagnostic catheter. This catheter was removed. [...] James M.D. Date Trans: 05/17/2019 01:54 P/jco [id number] cc: Paddy Stone M.D. [address], [facility] [address] Normal [facility] Vital Signs Date Time Vital Sign Value Performing Clinician Facility 10-20-2024 14:45-0500 Body height 162.6 cm [employer] Work Phone: [facility] 10-20-2024 14:45-0500 Body mass index (BMI) [Ratio] 28.84 kg/m2 [employer] Work Phone: [facility] 10-20-2024 14:45-0500 Body temperature 97.11 [degF] Kiana Arrogene Work Phone: [facility] 10-20-2024 14:45-0500 Body weight 76.2 kg [employer] Work Phone: [facility] 08-22-2021 10:00-0400 Body height 167.64 cm Jose A Petersen Other [employer] Other 08-22-2021 10:00-0400 Body mass index (BMI) [Ratio] 25.01 kg/m2 Jose A Petersen Other [employer] Other 08-22-2021 10:00-0400 Body weight 70.31 kg Jose A Petersen Other [employer] Other Encounters Encounter Date Encounter Type Care Provider Facility Start: 03-06-2025 End: 03-06-2025 Bamboo flowsheet Andrew Maribeth DO Work Phone: [facility] Start: 03-06-2025 End: 03-06-2025 Bamboo flowsheet Andrew Maribeth DO Work Phone: [facility] Start: 01-26-2025 ambulatory Facility:[facility] Start: 10-20-2024 End: 10-20-2024 Patient encounter procedure [...] abnormal findings DR PADDY STONE . [facility] Start: 11-03-2022 End: 11-03-[address] PADDY STONE . Facility:[facility] Start: 11-03-2022 End: 11-03-2022 Encounter for general adult medical examination without abnormal findings DR PADDY STONE . Facility:[facility] Start: 10-30-2022 End: 10-31-[address] PADDY STONE . Facility:[facility] Start: 10-22-2022 End: 10-22-[address] PADDY STONE . Facility:[facility] Start: 10-20-[address] PADDY STONE . Facili ty:[facility] Start: 07-23-2022 ambulatory ADRIANA ANABEL Facility: [facility] Start: 06-16-2022 End: 06-17-[address] PADDY STONE . Facility:[facility] Start: 05-27-2022 End: 05-27-[address] ANDREW ORTEGA . Facility:[facility] Start: 10-03-2021 End: 10-03-2021 ambulatory Jose A Petersen Other [employer] Other Start: 10-03-2021 Telephone encounter Jose A Petersen [facility] Start: 08-22-2021 Office outpatient ne w 45 minutes Jose A Petersen [facility] Start: 05-17-2019 End: 05-18-2019 Patient encounter procedure PROVIDER UNKNOWN Facility:[facility] Procedures Date Procedure Procedure Detail Performing Clinician Start: 10-20-2024 Radex hip unilateral with pelvis 2-3 views Kiana Lemons DO Work Phone: Plan of Treatment Date Care Activity Detail Author Start: 07-31-2025 Influenza vaccination Influenz a Vaccine (Season Ended) [facility] Start: 03-06-2025 End: 03-06-2025 Patient encounter procedure [facility] Comment on above: Arrived Start: 07-31-2024 Influenza vaccination Influenz a Vaccine (#1) [facility] Start: 2001 Screening for malign ant neoplasm of breast Mammogram [facility] Start: 1991 Screening for malign ant neoplasm of cervix [facility] Start: 1982 Screening for malign ant neoplasm of cervix Pap Smear [facility] Start: 1961 Screening for malign ant neoplasm of colon [facility] XR Hip - right 3 Views XR hip ri ght 2 or 3 views Imaging Routine Left hip pain 10/20/2024 2:49 PM EST [facility] Work Phone: Payers Date Payer Category Payer Private Health Insurance [facility] [id number] 1960 Unknown [id number] [id number] .2.647 1960 Unknown [id number] 2.16.840.1.675662.3.579 .2.593 1961 Unknown [id number] 2.16.840.1.765117.3.579 .2.593 1961 Unknown [id number] 2.16.840.1.000728.3.579 .2.593 1961 Unknown [id number] 2.16.840.1.707383.3.579 .2.593 1961 Unknown [id number] 2.16.840.1.939698.3.579 .2.593 1961 Unknown [id number] 2.16.840.1.275495.3.579 .2.593 1961 Unknown [id number] 2.16.840.1.073791.3.579 .2.593 1961 Unknown [id number] 2.16.840.1.122801.3.579 .2.593 1961 Unknown [id number] 2.16.840.1.433947.3.579 .2.1259 1961 Unknown [id number] 2.16.840.1.231871.3.579 .2.1259 1961 Unknown [id number] 2.16.840.1.356172.3.579 .2.727 1958 Self-pay 1958 Unknown [id number] Social History Date Type Detail Facility Start: 10-20-2024 Sex Assigned At N [employer] Other Start: 10-20-2024 [facility] Start: 10-20-2024 Tobacco use and exposure Smokeless tobacco non-user [facility] Start: 10-20-2024 Alcoholic beverage intake Ex-drinker (finding) [facility] Start: 10-20-2024 History of Social function [facility] Start: 1960 Sex assigned at Not on file N [facility] Start: 06-23-2024 Gender identity Identifies as female gender (finding) [facility] History of Present illness Narrative [...] AP pelvis, right hip taken in the [place] office saved to the permanent record shows [...] time, healing, commitment and expectations. We discussed longterm definitive role of total hip replacement. Indications [...] 6:16 PM EST documented in this encounter [facility] Evaluation note 08-22-2021 Note Date & [...] of pain and plan potential surgical treatment. [employer] Other Evaluation note Note Date & Type Note Facility Evaluation note No Information [employer] Other Evaluation note Note Date & Type Note Facility Evaluation note Diagnosis Left hip pain- Primary Pain in joint, pelvic region and thigh documented in this encounter [facility] History general Narrative - Reported Note Date & Type Note Facility History general Narrative - Reported Type Surgical History C section x3 Surgical History hysterectomy Surgical History gall bladder Hospitalization History see above [employer] [facility] Other Summary Purpose Family History No Family [...] section and content) DATE CREATED AUTHOR 07/12/2019 [facility] DATE CREATED AUTHOR AUTHOR'S ORGANIZ ATION 01/16/2022 [facility] DATE CREATED AUTHOR AUTHOR'S ORGANIZ ATION 10/03/2022 [facility] DATE CREATED AUTHOR AUTHOR'S ORGANIZ ATION 04/09/2023 [facility] DATE CREATED AUTHOR AUTHOR'S ORGANIZ ATION 10/23/2024 [facility] EPIC DATE CREATED AUTHOR AUTHOR'S ORGANIZ ATION 01/28/2025 [facility] REASON FOR VISIT (unrecogniz ed section and content) Reason Comments Pain Care Teams (unrecognized sec tion and content) Poleyard Supervisor Relationship Specialty Start Date End Date Paddy Stone MD [address] [place] [address] PCP - General Family Medicine 10/05/24 Poleyard Supervisor Relationship Specialty Start Date End Date Paddy Stone MD [address] [place] [address] PCP - General Family Medicine 10/05/24 FOR [...] BE BASED ON THE PRIMARY CLINICAL RECORDS. [facility] [employer] [facility]. provides no warranty or guarantee of the accuracy or completeness of information in this document.
[2025-03-09 14:08] LABS: Age Gdln ACOG Testing Note (.); HPV Aptima Negative (Negative); IGP, Aptima HPV, rfx 16/18,45 Note (.)
== END 2025-03-06 21:15 | disposition home or self-care (01) ==
LOC: LAB 21:14
PROVIDERS: PCP Family Medicine; Visit Provider Obstetrics & Gynecology
DX: Z01.419 Encounter for gynecological examination (general) (routine) without abnormal findings (principal)
CPT/HCPCS: 87624; 88175

== ENCOUNTER 2025-04-10 11:05 | Outpatient (OUT) | payer OTHER, SELFPAY ==
--- NOTE | 2025-04-10 11:11 | XR_ITS ---
The [address] [address] Patient Name: JOCELYNE MATOS MRN: [id number] date: 1960 Sex: F Assigned Patient Location: [facility] Current Patient Location: [facility] Accession/Order Number: [id number] Exam Date: 04/10/2025 11:22 Report Date: 04/10/2025 11:24 At the request of: PADDY HER MD Procedure: XR ankle RT min 3V RIGHT ANKLE - 3 views CLINICAL DATA: Patient rolled right ankle last night and has lateral pain. COMPARISON: None AP, lateral and oblique views were obtained. There is osteopenia. There is no evidence of fracture or dislocation. The talar dome is intact. Tiny calcaneal spurs are visualized. There are no significant soft tissue abnormalities. XR/XR ankle RT min 3V IMPRESSION: NO ACUTE BONY INJURY. Impression dictated by: Magdalene Krause M.D. 04/10/2025 11:24 AM Dictation Location: [place] [address] Electronically authenticated by: [id number] Y Date: 04/10/2025 11:24
--- OUTSIDE RECORDS SUMMARY | 2025-04-10 11:24 | XMS_ITS | CCD ---
Author Organization [facility] Care Team Providers Care Admissions Assistant Name Role Phone UNKNOWN, PROVIDER Admitting Unavailable UNKNOWN, PROVIDER Attending Unavailable PADDY STONE Referring Unavailable PADDY STONE Primary Care Unavailable Jose A Petersen Unavailable ARDEN ., DR THOMASON Primary Care Unavailable HOY ., DR THOMASON Consulting Unavailable HOY ., DR THOMASON Attending Unavailable HOY ., DR THOMASON Admitting Unavailable WILLARD, DR WALDO Perkins Consulting Unavailable HOY ., DR THOMASON Admitting Unavailable HOY ., DR THOMASON Primary Care Unavailable HOY ., DR THOAMSON Consulting Unavailable HOY ., DR THOMASON Attending [...] HOY ., DR THOMASON Primary Care Unavailable MRAIBETH ., DR MORALES Admitting Unavailable MARIBETH ., [...] HOY ., DR THOMASON Primary Care Unavailable Paddy Stone MD Primary Care Provider [phone] KIANA LEMONS Referring Unavailable KIANA LEMONS Attending Unavailable KIANA LEMONS Referring Unavailable ANDREW STAHL Attending Unavailable Allergies Allergy Classification Reported Allergen(s) Allergy Type Date of Onset Reaction(s) Facility (3 sources) Acetaminophen / oxyCODONE Drug Allergy 10-19-20 14 [facility] (1 source) Sulfamethoxazole / Trimethoprim Drug Allergy 05-17-20 19 [facility] (2 sources) Acetaminophen / oxyCODONE Drug Allergy Unknown [facility] Other (4 sources) Latex Propensity to adverse reactions Unknown [facility] Other (2 sources) Sulfacetamide / Sulfur Drug Allergy Unknown [facility] Other (8 sources) Sulfamethoxazole / Trimethoprim Drug Allergy 10-20-20 24 Unknown [facility] Other (2 sources) Codeine Drug Allergy 10-12-20 14 [facility] (2 sources) Latex Drug allergy (disorder) 10-25-20 14 [facility] (1 source) Sulfamethoxazole / Trimethoprim Drug Allergy 01-08-20 17 [facility] (1 source) Sulfonamides (Antibiotic) Drug allergy (disorder) 01-08-20 17 [facility] (6 sources) Acetaminophen Drug Allergy 02-08-20 20 [facility] (6 sources) Codeine Drug Allergy 10-20-20 24 [facility] (7 sources) Estrogens; Translations: [estrogens] Drug Allergy 10-20-20 24 Shortness of breath [facility] (6 sources) Latex Allergy to substance 05-16-20 09 Itching [facility] (6 sources) oxyCODONE Drug Allergy 02-08-20 20 [facility] (6 sources) Sulfamethoxazole Allergy to substance 02-08-20 [facility] (6 sources) Trimethoprim Drug Allergy 02-08-20 20 [facility] Medications Current Medications Medication Drug Class(es) Dates Sig (Normalized) Sig (Original) albuterol 0.83 mg/ml inhalation solution (6 sources) beta2-Adrenergic Agonist Start: 09-05-2024 albuterol (2.5 MG/3ML) 0.083% nebulizer solution INHALE 3 ML EVERY 6 HOURS NEEDED 09/05/2024 Active estradiol 0.1 mg/ml vaginal cream (3 sources) Estrogen Start: 03-07-2025 End: 04-06-2025 estradiol (Estrace) 0.1 MG/GM vaginal cream Indications: Postmenopausal atrophic vaginitis Insert 0.5 g into the vagina Daily Apply 1/2 APPLICATOR daily for 2 weeks 42.5 g 1 03/07/2025 04/06/2025 Active Multiple Vitamin (MULTIVITAMIN ADULT PO) (3 sources) take 1 dose by mouth once daily Multiple Vitamin (MULTIVITAMIN ADULT PO) Take 1 each by mouth Daily Active Completed/Discontinued Medications Medication Drug Class(es) Dates Sig (Normalized) Sig (Original) montelukast 10 mg oral tablet (5 sources) Leukotriene Receptor Antagonist Start: 08-11-2024 End: 03-06-2025 take 1 tablet by mouth once daily montelukast (Singulair) 10 MG tablet TAKE 1 TABLET BY MOUTH EVERY DAY FOR 30 DAYS 08/11/2024 03/06/2025 Discontinued Problems Active Problems Problem Classification Problem Date Documented Date Episodic/Chronic Abdominal pain (1 source) Right lower quadrant pain; Translations: [RIGHT LOWER QUADRANT PAIN] Onset: 04-08-2023 Episodic Joint disorders and dislocations; trauma-related (3 sources) Internal derangement of right knee; Translations: [Unspecified internal derangement of right knee] Onset: 08-22-2021 Resolved: 08-22-2021 Chronic Menopausal disorders (2 sources) Atrophic vaginitis; Translations: [Postmenopausal atrophic vaginitis] 03-07-2025 Chronic Osteoarthritis (3 sources) Arthritis of right knee; Translations: [Unilateral primary osteoarthritis, right knee] Onset: 08-22-2021 Resolved: 08-22-2021 Chronic Other non-traumatic joint disorders (2 sources) Hip pain; Translations: [Pain in left hip] 10-18-2024 Episodic Other screening for suspected conditions (not mental disorders or infectious disease) (10 sources) Encounter for screening mammogram for malignant neoplasm of breast; Translations: [Encounter for screening for malignant neoplasm of cervix] Onset: 05-27-2022 Episodic Residual codes; unclassified (2 sources) Postmenopausal state; Translations: [Asymptomatic menopausal state] 03-06-2025 Episodic Unclassified (3 sources) CONTACT W/AND (SUSP) [...] M25.561] Onset: 08-22-2021 Resolved: 08-22-2021 Episodic Other upper respiratory infections (1 source) Acute recurrent frontal sinusitis; Translations: [ACUTE RECURRENT FRONTAL SINUSITIS] Onset: 10-27-2022 Episodic Unclassified (1 source) CONTACT W/AND (SUSP) EXPOS COVID-19; Translations: [CONTACT W/AND (SUSP) EXPOS COVID-19] Onset: 10-22-2022 Results Test Name Value Interpretation Reference Range Facility IGP,APTIMA HPV,AGE GDLNon AGE GDLN ACOG TESTING Note . [facility] Comment on above: TESTS RESULT FLAG UN ITS REF RANGE LAB Clinician Provided Cytology Information Source.............Vagina No. of containers..01 ThinPrep Vial Age Algo ACOG Yana... FLAG LEGEND: L-Low Normal,H-High Normal,LL-Alert Low,HH-Alert High <-Panic Low,>-Panic High,A-Abnormal,AA-Critical Abnormal Performed at: 01 =[address] [id number] Lennie Ballesteros MD, HPV APTIMA Negative Negative [facility] Comment on above: This nucleic acid am plification test detects fourteen high- risk HPV types (16,18,31,33,35,39,45,51,52,56,58,59,66,68) without differentiation. Performed at: =[address] [id number] Brand Marketing Manager: Lennie Ballesteros MD, Phone: [phone] Performed at: [address] [id number] Brand Marketing Manager: Lennie Ballesteros MD, Phone: [phone] IGP, APTIMA HPV, RFX 16/18,45 Note . [facility] Comment on above: TESTS RESULT FLAG UN ITS REF RANGE LAB DIAGNOSIS: 02 NEGATIVE FOR INTRAEPITHELIAL LESION OR MALIGNANCY. Specimen adequacy: 02 Satisfactory for evaluation. No endocervical cells are present. This is consistent with a history of hysterectomy. Performed by: 02 Ramya Estrella [employer]over [employer] Turner (ASCP) . 02 Note: Note 02 The Pap smear is a screening test designed to aid in the detection of premalignant and malignant conditions of the uterine cervix. It is not a diagnostic procedure and should not be used as the sole means of detecting cervical cancer. Both false-positive and false-negative reports do occur. Test Methodology: Note 02 This liquid based ThinPrep(R) pap test was screened with the use of an image guided system. HPV Genotype Reflex Note 02 Criteria not met, HPV Genotype not performed. FLAG LEGEND: L-Low Normal,H-High Normal,LL-Alert Low,HH-Alert High <-Panic Low,>-Panic High,A-Abnormal,AA-Critical Abnormal Performed at: [address] [facility] [address] [id number] Lennie Ballesteros MD, [facility] CREATININEon 04-02-2023 Creatinine [Mass/Vol] 0.80 mg/dL Normal 0.55-1.02 [facility] Comment on above: Performed By: #### L IPID, CMP, T7, TSH #### [facility] [address] [address] [address] Nga Ribeiro EGFR-AF SAMOAN >60 Normal >=60 [facility] Comment on above: Performed By: #### L IPID, CMP, T7, TSH #### [facility] [address] [address] [address] Nga Ribeiro EGFR-NON AF SAMOAN >60 Normal >=60 [facility] Comment on above: Performed By: #### L IPID, CMP, T7, TSH #### [facility] [address] ABD/PELV W CONon 04-02-[address] ABD/PELV W CON EXAMINATION: CT ABD/PELV [...] WALDO BUSTAMANTE Date: 2023-04-02 15:30 Normal [facility] OCC BLD IMMUNO SCREENon OCCULT BLOOD Negative Normal NEGATIVE [facility] Comment on above: Performed By: #### O BSCRN #### [facility] [address] [place] [address] Dr. Nga Ribeiro INSULINon 10-31-2022 Insulin 8.8 uIU/mL Normal 2.6-24.9 [facility] Comment on above: Performed By: #### L IPID, CMP, T7, TSH #### [facility] [address] [place] [address] Dr. Nga Ribeiro CBC AUTO DIFFon 10-30-2022 BASO # 0.1 103/ul Normal 0.0-0.1 [facility] Comment on above: Performed By: #### L IPID, CMP, T7, TSH #### [facility] [address] [place] [address] Dr. Nga Ribeiro Basophils/100 WBC (Bld) 1.4 % Normal 0.2-2.0 [facility] Comment on above: Performed By: #### L IPID, CMP, T7, TSH #### [facility] [address] [place] [address] Dr. Nga Ribeiro EO # 0.3 103/ul Normal 0.0-0.7 [facility] Comment on above: Performed By: #### L IPID, CMP, T7, TSH #### [facility] [address] [place] [address] Dr. Nga Ribeiro Eosinophils/100 WBC (Bld) 6.3 % Normal 0.9-7.0 [facility] Comment on above: Performed By: #### L IPID, CMP, T7, TSH #### [facility] [address] [place] [address] Dr. Nga Ribeiro Erythrocyte distribution width (RBC) [Ratio] 12.7 % Normal 11.0-15.0 [facility] Comment on above: Performed By: #### L IPID, CMP, T7, TSH #### [facility] [address] [place] [address] Dr. Nga Ribeiro Hematocrit (Bld) [Volume fraction] 40.4 % Normal 36.0-48.0 [facility] Comment on above: Performed By: #### L IPID, CMP, T7, TSH #### [facility] [address] [place] [address] Dr. Nga Ribeiro Hemoglobin (Bld) [Mass/Vol] 13.8 g/dL Normal 12.0-16.0 [facility] Comment on above: Performed By: #### L IPID, CMP, T7, TSH #### [facility] [address] [place] [address] Dr. Nga Ribeiro IG # 0.01 10e3/ul Normal 0.00-0.03 [facility] Comment on above: Performed By: #### L IPID, CMP, T7, TSH #### [facility] [address] [place] [address] Dr. Nga Ribeiro IG % 0.2 % Normal 0.0-0.5 [facility] Comment on above: Performed By: #### L IPID, CMP, T7, TSH #### [facility] [address] [place] [address] Dr. Nga Ribeiro LYMPH # 1.9 103/ul Normal 1.2-3.8 [facility] Comment on above: Performed By: #### L IPID, CMP, T7, TSH #### [facility] [address] [address] [address] Nga Ribeiro Lymphocytes/100 WBC (Bld) 46.4 % Normal 20.5-60.0 [facility] Comment on above: Performed By: #### L IPID, CMP, T7, TSH #### [facility] [address] [place] [address] Dr. Nga Ribeiro MANUAL DIFF REQ NO Normal [facility] Comment on above: Performed By: #### L IPID, CMP, T7, TSH #### [facility] [address] [place] [address] Dr. Nga Ribeiro MCH (RBC) [Entitic mass] 30.6 pg Normal 26.7-34.0 [facility] Comment on above: Performed By: #### L IPID, CMP, T7, TSH #### [facility] [address] [place] [address] Dr. Nga Ribeiro MCHC (RBC) [Mass/Vol] 34.2 g/dL Normal 29.9-35.2 [facility] Comment on above: Performed By: #### L IPID, CMP, T7, TSH #### [facility] [address] [place] [address] Dr. Nga Ribeiro MCV (RBC) [Entitic vol] 89.6 fL Normal 81.0-99.0 [facility] Comment on above: Performed By: #### L IPID, CMP, T7, TSH #### [facility] [address] [place] [address] Dr. Nga Ribeiro MONO # 0.4 103/ul Normal 0.3-0.8 [facility] Comment on above: Performed By: #### L IPID, CMP, T7, TSH #### [facility] [address] [place] [address] Dr. Nga Ribeiro Monocytes/100 WBC (Bld) 9.1 % Normal 1.7-12.0 [facility] Comment on above: Performed By: #### L IPID, CMP, T7, TSH #### [facility] [address] [address] [address] Nga Ribeiro NEUT # 1.5 103/ul Normal 1.4-6.5 [facility] Comment on above: Performed By: #### L IPID, CMP, T7, TSH #### [facility] [address] [address] [address] Nga Ribeiro Neutrophils/100 WBC (Bld) 36.6 % Critically low 43.0-75.0 [facility] Comment on above: Performed By: #### L IPID, CMP, T7, TSH #### [facility] [address] [address] [address] Nga Ribeiro Platelet mean volume (Bld) [Entitic vol] 9.2 fL Critically low 9.5-13.5 [facility] Comment on above: Performed By: #### L IPID, CMP, T7, TSH #### [facility] [address] [address] [address] Nga Ribeiro PLT 194 103/ul Normal 150-450 [facility] Comment on above: Performed By: #### L IPID, CMP, T7, TSH #### [facility] [address] [address] [address] Nga Ribeiro RBC 4.51 106/ul Normal 4.20-5.40 [facility] Comment on above: Performed By: #### L IPID, CMP, T7, TSH #### [facility] [address] [address] [address] Nga Ribeiro WBC 4.2 103/ul Normal 4.0-11.0 [facility] Comment on above: Performed By: #### L IPID, CMP, T7, TSH #### [facility] [address] [place] [address] Dr. Nga Ribeiro FREE THYROXINE INDEX T7on FTI 2.66 Normal 1.30-4.50 [facility] Comment on above: Performed By: #### L IPID, CMP, T7, TSH #### [facility] [address] [place] [address] Dr. Nga Ribeiro T3U 36.0 % Normal 30.0-39.0 [facility] Comment on above: Performed By: #### L IPID, CMP, T7, TSH #### [facility] [address] [address] [address] Nga Ribeiro T4 [Mass/Vol] 7.40 ug/dL Normal 4.80-13.90 [facility] Comment on above: Performed By: #### L IPID, CMP, T7, TSH #### [facility] [address] [address] [address] Nga Ribeiro GLYCOHEMOGLOBIN A1Con 2021 ADA RECOMMENDATION SEE BELOW Normal [facility] Comment on above: Result Comment: ADA RECOMMENDED LIMIT 4.0 - 6.0 ADA THERAPEUTIC TARGET < 7.0 ACTION SUGGESTED > 7.0 Performed By: #### A 1C #### [facility] [address] [place] [address] Dr. Nga Ribeiro Glucose [Mass/Vol] 94 mg/dL Normal [facility] Comment on above: Performed By: #### A 1C #### [facility] [address] [address] [address] Nga Ribeiro HbA1c (Bld) [Mass fraction] 4.9 % Normal 4.5-6.2 [facility] Comment on above: Performed By: #### A 1C #### [facility] [address] [place] [address] Dr. Nga Ribeiro IRONon 10-30-2022 Iron [Mass/Vol] 119.0 ug/dL Normal 50.0-170.0 [facility] Comment on above: Performed By: #### I CHARISMA #### [facility] [address] [address] [address] Nga Ribeiro LIPID PROFILEon 10-30-2022 CHOL-HDL RATIO NORM SEE BELOW Normal [facility] Comment on above: Result Comment: 3.3 - 4.4 LOW RISK 4.4 - 7.1 AVERAGE RISK 7.1 - 11.0 MODERATE RISK >11.0 HIGH RISK Performed By: #### L IPID, CMP, T7, TSH #### [facility] [address] [address] [address] Nga Ribeiro Cholesterol [Mass/Vol] 201 mg/dL Critically high <=200 [facility] Comment on above: Performed By: #### L IPID, CMP, T7, TSH #### [facility] [address] [address] [address] Nga Ribeiro Cholesterol in HDL [Mass/Vol] 78 mg/dL Critically high 40-60 [facility] Comment on above: Performed By: #### L IPID, CMP, T7, TSH #### [facility] [address] [address] [address] Nga Ribeiro Cholesterol in LDL [Mass/Vol] 108.8 mg/dL Normal [facility] Comment on above: Performed By: #### L IPID, CMP, T7, TSH #### [facility] [address] [address] [address] Nga Ribeiro Cholesterol.total/Ch olesterol in HDL [Mass ratio] 2.6 {ratio} Normal [facility] Comment on above: Performed By: #### L IPID, CMP, T7, TSH #### [facility] [address] [address] [address] Nga Ribeiro HDL NORMAL > or = 60 mg/dl - LO W CARDIOVASCULAR RISK <40 mg/dl - HIGH CARDIOVASCULAR RISK Normal [facility] Comment on above: Performed By: #### L IPID, CMP, T7, TSH #### [facility] [address] [address] [address] Nga Ribeiro LDL CALC NORMAL SEE BELOW Normal [facility] Comment on above: Result Comment: <100 mg/dl OPTIMAL 100 - 129 mg/dl NEAR OR ABOVE OPTIMAL 130 - 159 mg/dl BORDERLINE HIGH 160 - 189 mg/dl HIGH >190 mg/dl VERY HIGH Performed By: #### L IPID, CMP, T7, TSH #### [facility] [address] [address] [address] Nga Ribeiro Triglyceride [Mass/Vol] 71 mg/dL Normal <=150 [facility] Comment on above: Performed By: #### L IPID, CMP, T7, TSH #### [facility] [address] [address] [address] Nga Ribeiro VLDL CALC 14.2 mg/dL Normal [facility] Comment on above: Performed By: #### L IPID, CMP, T7, TSH #### [facility] [address] [address] [address] Nga Ribeiro PROF 14(COMP METB)on 022 Albumin [Mass/Vol] 3.8 g/dL Normal 3.4-5.0 [facility] Comment on above: Performed By: #### L IPID, CMP, T7, TSH #### [facility] [address] [address] [address] Nga Ribeiro Albumin/Globulin [Mass ratio] 1.1 {ratio} Normal [facility] Comment on above: Performed By: #### L IPID, CMP, T7, TSH #### [facility] [address] [address] [address] Nga Ribeiro ALP [Catalytic activity/Vol] 91 U/L Normal 46-116 [facility] Comment on above: Performed By: #### L IPID, CMP, T7, TSH #### [facility] [address] [address] [address] Nga Ribeiro ALT [Catalytic activity/Vol] 19 U/L Normal 14-59 [facility] Comment on above: Performed By: #### L IPID, CMP, T7, TSH #### [facility] [address] [address] [address] Nga Ribeiro Anion gap [Moles/Vol] 9.2 mmol/L Normal [facility] Comment on above: Performed By: #### L IPID, CMP, T7, TSH #### [facility] [address] [address] [address] Nga Ribeiro AST [Catalytic activity/Vol] 18 U/L Normal 15-37 [facility] Comment on above: Performed By: #### L IPID, CMP, T7, TSH #### [facility] [address] [address] [address] Nga Ribeiro Bilirubin [Mass/Vol] 0.5 mg/dL Normal 0.2-1.0 [facility] Comment on above: Performed By: #### L IPID, CMP, T7, TSH #### [facility] [address] [place] [address] Dr. Nga Ribeiro Calcium [Mass/Vol] 9.5 mg/dL Normal 8.5-10.1 [facility] Comment on above: Performed By: #### L IPID, CMP, T7, TSH #### [facility] [address] [address] [address] Nga Ribeiro Chloride [Moles/Vol] 105 mmol/L Normal 98-107 [facility] Comment on above: Performed By: #### L IPID, CMP, T7, TSH #### [facility] [address] [place] [address] Dr. Nga Ribeiro CO2 [Moles/Vol] 29.5 mmol/L Normal 21.0-32.0 [facility] Comment on above: Performed By: #### L IPID, CMP, T7, TSH #### [facility] [address] [place] [address] Dr. Nga Ribeiro Creatinine [Mass/Vol] 0.68 mg/dL Normal 0.55-1.02 [facility] Comment on above: Performed By: #### L IPID, CMP, T7, TSH #### [facility] [address] [place] [address] Dr. Nga Ribeiro EGFR-AF SAMOAN >60 Normal >=60 [facility] Comment on above: Performed By: #### L IPID, CMP, T7, TSH #### [facility] [address] [place] [address] Dr. gNa Ribeiro EGFR-NON AF SAMOAN >60 Normal >=60 [facility] Comment on above: Performed By: #### L IPID, CMP, T7, TSH #### [facility] [address] [place] [address] Dr. Nga Ribeiro Globulin (S) [Mass/Vol] 3.6 g/dL Normal [facility] Comment on above: Performed By: #### L IPID, CMP, T7, TSH #### [facility] [address] [address] [address] Nga Ribeiro Glucose [Mass/Vol] 100 mg/dL Normal 74-106 [facility] Comment on above: Performed By: #### L IPID, CMP, T7, TSH #### [facility] [address] [address] [address] Nga Ribeiro Potassium [Moles/Vol] 4.7 mmol/L Normal 3.5-5.1 [facility] Comment on above: Performed By: #### L IPID, CMP, T7, TSH #### [facility] [address] [place] [address] Dr. Nga Ribeiro Protein [Mass/Vol] 7.4 g/dL Normal 6.4-8.2 [facility] Comment on above: Performed By: #### L IPID, CMP, T7, TSH #### [facility] [address] [place] [address] Dr. Nga Ribeiro Sodium [Moles/Vol] 139 mmol/L Normal 136-145 [facility] Comment on above: Performed By: #### L IPID, CMP, T7, TSH #### [facility] [address] [address] [address] Nga Ribeiro Urea nitrogen [Mass/Vol] 19.0 mg/dL Critically high 7.0-18.0 [facility] Comment on above: Performed By: #### L IPID, CMP, T7, TSH #### [facility] [address] [place] [address] Dr. Nga Ribeiro Urea nitrogen/Creatinine [Mass ratio] 27.9 mg/mg Normal [facility] Comment on above: Performed By: #### L IPID, CMP, T7, TSH #### [facility] [address] [place] [address] Dr. Nga Ribeiro TSHon 10-30-2022 TSH 0.871 uIU/mL Normal 0.358-3.740 [facility] Comment on above: Performed By: #### L IPID, CMP, T7, TSH #### [facility] [address] [place] [address] Dr. Nga Ribeiro Covid-19 PCR (CVDTB)on 10-01 SARS-CoV-2 (COVID-19) RNA VALENTINA+probe Ql (Unsp spec) Not detected Normal NOT DETECTED [facility] Comment on above: Result Comment: When [...] for this test is supported by the [employer]'s declaration that [...] used). Performed By: #### C VDTBH #### [facility] [address] [address] [address] Nga Ribeiro INFLUENZA A AND B AGon 10-22 INFLUANEGH SEE BELOW Normal [facility] Comment on above: Result Comment: Nega tive for Flu A protein angiten. Infection due to Flu A cannot be ruled out. Flu A angiten in the sample may be below the detection limit of the test. Performed By: #### L IPID, CMP, T7, TSH #### [facility] [address] [address] [address] Nga Ribeiro INFLUBNEG SEE BELOW Normal [facility] Comment on above: Result Comment: Nega tive for Flu B protein antigen. Infection due to Flu B cannot be ruled out. Flu B antigen in the sample may be below the detection limit of the test. Performed By: #### L IPID, CMP, T7, TSH #### [facility] [address] [address] [address] Nga Ribeiro INFLUENZA A AG Negative Normal NEGATIVE SEE COMMENT [facility] Comment on above: Performed By: #### L IPID, CMP, T7, TSH #### [facility] [address] [place], [place] [address] Dr. Nga Ribeiro INFLUENZA B AG Negative Normal NEGATIVE SEE COMMENT [facility] Comment on above: Performed By: #### L IPID, CMP, T7, TSH #### [facility] [address] [place], [place] [address] Dr. Nga Ribeiro INTERNAL CONTROLS Within Normal Limits Normal Wi thin Normal Limits [facility] Comment on above: Performed By: #### L IPID, CMP, T7, TSH #### [facility] [address] [place], [place] [address] Dr. Nga Ribeiro MRI Shoulder w/o Lefton [...] by Maulik Stewart on 10/02/2022 1335 Normal [facility] Hadoop Application Developer MG MAMM SCREEN 3D ZARI CADon 06-16-2022 MG MAMM SCREEN 3D ZARI CAD Patient: CONY MATOS Exam Date: 06/16/2022 : 1960 Gender:F Ordering : DR ANDREW STAHL . Admission #: [id number] Family : Order #: [id number] CLICK HERE TO VIEW EXAM RADIOLOGY REPORT [...] Treatments Excision Family Cancers None LOCATION: [facility] BREAST COMPOSITION: Scattered areas fibroglandular density. [...] Nixon M.D. on 06/16/2022 at 13:28 Normal [facility] PAP ACOG PANEL 2: 30 to 65on 05-30-2022 . . Normal [facility] Comment on above: Result Comment: Perf ormed at: WB Performed By: #### L IPID, CMP, T7, TSH #### [facility] [address] [address] [address] Nga Ribeiro Age Gdln ACOG Testing 30-65 Normal [facility] Comment on above: Performed By: #### L IPID, CMP, T7, TSH #### [facility] [address] [address] [address] Nga Ribeiro DIAGNOSIS: Comment Normal [facility] Comment on above: Result Comment: UNSA TISFACTORY FOR EVALUATION. Performed at: WB Performed By: #### L IPID, CMP, T7, TSH #### [facility] [id number] Nga Ribeiro HPV Aptima Negative Normal Negative [facility] Comment on above: Result Comment: This nucleic acid amplification test detects fourteen high-risk HPV types (16,18,31,33,35,39,45,51,52,56,58,59,66,68) without differentiation. Performed at: =G Performed By: #### L IPID, CMP, T7, TSH #### [facility] [address] [address] [address] Nga Ribeiro Methodology: Comment Normal [facility] Comment on above: Result Comment: This liquid based ThinPrep(R) pap test was screened with the use of an image guided system. Performed at: WB Performed By: #### L IPID, CMP, T7, TSH #### [facility] [address] [address] [address] Nga Ribeiro Note: Comment Normal [facility] Comment on above: Result [...] #### L IPID, CMP, T7, TSH #### [facility] [address] [address] [address] Nga Ribeiro Performed by: Comment Normal [facility] Comment on above: Result Comment: Kolton Carpio, [employer] (ASCP) Performed at: WB Performed By: #### L IPID, CMP, T7, TSH #### [facility] [address] [address] [address] gNa Ribeiro QC reviewed by: Comment Normal [facility] Comment on above: Result Comment: Adore Sloan, Supervisory [employer] (ASCP) Performed at: WB Performed By: #### L IPID, CMP, T7, TSH #### [facility] [id number] Nga Ribeiro Recommendation: Comment Normal [facility] Comment on above: Result Comment: Sugg est follow up as clinically appropriate. Performed at: WB Performed By: #### L IPID, CMP, T7, TSH #### [facility] [address] [address] [address] Nga Ribeiro Specimen adequacy: Comment Normal [facility] Comment on above: Result Comment: Spec imen processed and examined but unsatisfactory for evaluation of epithelial abnormality because of insufficient cellularity. Performed at: WB Performed By: #### L IPID, CMP, T7, TSH #### [facility] [address] [address] [address] Nga Ribeiro MR knee RT wo conon 08-30-20 MR knee RT wo con [facility] [place] [address] [place] [address] MRI Report Signed Patient: Cony Matos MR#: [id number] 19 : 1960 Acct:[id number] Age/Sex: 60 / F ADM Date: 08/30/21 Loc: [facility] Room: Type: [facility] CLI Attending Dr: Jose A Petersen [...] Jamarcus Prado M.D.08/30/2021 11:36 AM Dictation Location: [place] [address] Transcribed By: [facility] 08/30/21 1136 Dictated By: Jamarcus Prado II, MD 08/30/21 1120 Signed By: 08/30/21 1136 Normal [facility] XR knee RT 2Von 08-22-2021 XR knee RT 2V [facility] [place] [address] [place] [address] XRay Report Signed Patient: Cony Matos MR#: [id number] [birth year] : 1960 Acct:[id number] Age/Sex: 60 / F ADM Date: 08/22/21 Loc: [facility] Room: Type: [facility] Attending Dr: Jose A Petersen MD [...] Jamarcus Prado M.D.08/22/2021 1:26 PM Dictation Location: [place] [address] Transcribed By: BIJAN 08/22/21 1326 Dictated By: Jamarcus Prado II, MD 08/22/21 1325 Signed By: 08/22/21 1326 [facility] Cardiovascular Lab Reporton 05-17-2019 Cardiovascular Lab Report [facility] Ceasar MR #: [id number] Department of Physician: Rico James M.D. Division of Service Date: 05/17/2019 Cardiology Birthdate: 1960 Adult Cardiovascular Room #: [place] [address] Cardiovascular Laboratory Report INDICATION: The patient is [...] informed consent. She was brought to label stamper in a fasting state. The right neck area was prepped and draped in usual fashion. Using ultrasound guidance and micropuncture technique, the right internal jugular vein was accessed. A 6-Panamanian x 11 cm sheath was placed. A 6-Panamanian Irvin catheter was used for right heart catheterization with measurement of pressures and calculation of cardiac output using the estimated Sherman method. Irvin catheter was removed. Jamar's test was favorable on the right. Access in the right radial artery was obtained using micropuncture technique, a 5-Panamanian 11 cm Hydrophilic sheath was advanced. Verapamil was given through the sheath and heparin was administered intravenously. Bilateral selective coronary angiography was then performed using a 6-Panamanian JL5 diagnostic catheter. This catheter was removed. [...] James M.D. Date Trans: 05/17/2019 01:54 P/timoteo [id number] cc: Paddy Stone M.D. [address] [place] [address] Normal [facility] Vital Signs Date Time Vital Sign Value Performing Clinician Facility 03-06-2025 14:59-0400 Body mass index (BMI) [Ratio] 27.94 kg/m2 Andrew Stahl DO Work Phone: [facility] 03-06-2025 14:59-0400 Body weight 73.85 kg Andrew Maribeth DO Work Phone: [facility] 03-06-2025 14:59-0400 Diastolic blood pressure 80 mm[Hg] Andrew Maribeth DO Work Phone: [facility] 03-06-2025 14:59-0400 Systolic blood pressure 120 mm[Hg] Andrew Maribeth DO Work Phone: [facility] 10-20-2024 14:45-0500 Body height 162.6 cm [employer] Work Phone: [facility] 10-20-2024 14:45-0500 Body mass index (BMI) [Ratio] 28.84 kg/m2 [employer] Work Phone: [facility] 10-20-2024 14:45-0500 Body temperature 97.11 [degF] [employer] Work Phone: [facility] 10-20-2024 14:45-0500 Body weight 76.2 kg [employer] Work Phone: [facility] 08-22-2021 10:00-0400 Body height 167.64 cm Jose A Petersen Other [email or web address] Other 08-22-2021 10:00-0400 Body mass index (BMI) [Ratio] 25.01 kg/m2 Jose A Olexa Other [email or web address] Other 08-22-2021 10:00-0400 Body weight 70.31 kg Jose A Olexa Other [email or web address] Other Encounters Encounter Date Encounter Type Care Provider Facility Start: 03-06-2025 End: 03-06-2025 Patient encounter procedure Andrew Maribeth DO Work Phone: [facility] [employer] Work Phone: Start: 03-06-2025 End: 03-06-2025 Periodic preventive med est patient 40-64yrs Andrew Maribeth DO Work Phone: [facility] Comment on above: Postmenopausal atrop hic vaginitis (Primary Dx); Well woman exam with routine gynecological exam; Breast cancer screening by mammogram; Postmenopausal state Start: 03-06-2025 End: 03-06-2025 ambulatory ANDREW MARIBETH Not Available Start: 03-06-2025 End: 03-06-2025 Bamboo flowsheet Andrew Maribeth DO Work Phone: [facility] Start: 03-06-2025 End: 03-09-2025 Bamboo flowsheet Andrew Maribeth DO Work Phone: [facility] Start: 03-06-2025 End: 03-09-2025 Clinisync Result Encounter Andrew Maribeth DO Work Phone: [facility] Unsolicited Start: 01-26-2025 ambulatory Facility:[facility] Start: 10-20-2024 End: 10-20-2024 Patient encounter procedure [...] abnormal findings DR PADDY STONE . [facility] Start: 11-03-2022 End: 11-03-[address] [...] End: 10-03-2021 ambulatory Jose A Petersen Other [email or web address] Other Start: 10-03-2021 Telephone encounter Jose A Petersen [facility] Start: 08-22-2021 Office outpatient ne w 45 minutes Jose A Petersen [facility] Start: 05-17-2019 End: 05-18-2019 Patient encounter procedure PROVIDER UNKNOWN Facility:[facility] Procedures Date Procedure Procedure Detail Performing Clinician Start: 03-06-2025 IGP,APTIMA HPV,AGE GDLN Andrew Stahl DO Work Phone: Start: 10-20-2024 Radex hip unilateral with pelvis 2-3 views Kiana Lemons DO Work Phone: Plan of Treatment Date Care Activity Detail Author Start: 07-31-2025 Influenza vaccination Influenz a Vaccine (Season Ended) [facility] Start: 03-06-2025 End: 03-06-2025 Patient encounter procedure [facility] Comment on above: Arrived Start: 03-06-2025 End: 03-06-2026 DXA Skeletal system Views for bone density DEXA bone density Imaging Routine Postmenopausal state Expected: 03/06/2025 (Approximate), Expires: 03/06/2026 [facility] Comment on above: Expected: 03/06/2025 (Approximate), Expires: 03/06/2026 Start: 03-06-2025 End: 05-06-2026 MG Breast - bilateral Screening Bilateral screening mammogram Imaging Routine Breast cancer screening by mammogram Expected: 03/06/2025, Expires: 05/06/2026 [facility] Work Phone: Comment on above: Expected: 03/06/2025 , Expires: 05/06/2026 Start: 07-31-2024 Influenza vaccination Influenza Vacc ine (#1) [facility] Start: 2001 Screening for malignant neoplasm of breast Mammogram [facility] Start: 1991 Screening for malignant neoplasm of cervix [facility] Start: 1982 Screening for malignant neoplasm of cervix Pap Smear [facility] Start: 1960 Screening for malignant neoplasm of colon [facility] THIN PREP TIS PAP AN D HR HPV DNA THIN PREP TIS PAP AND HR HPV DNA Pathology and Cytology Routine Well woman exam with routine gynecological exam Ordered: 03/06/2025 [facility] Comment on above: Ordered: 03/06/2025 XR Hip - right 3 Views XR hip ri ght 2 or 3 views Imaging Routine Left hip pain 10/20/2024 2:49 PM EST [facility] Work Phone: Payers Date Payer Category Payer Private Health Insurance [facility] Member Subscriber Plan / Payer (Effective 2015-Present) Name: Cony Matos Relation to Subscriber: Spouse Name: SHAWNAJOHNATHAN Date of : 1957 Address: [address] [place] [address] Payer ID: [id number] (NAIC) Type: Not on file Address: [place] [id number] 1960 Unknown [id number] [id number] .2.647 1960 Unknown [id number] 2.16.840.1.182230.3.579 .2.593 1960 Unknown [id number] 2.16.840.1.268232.3.579 .2.593 1960 Unknown [id number] 2.16.840.1.157513.3.579 .2.593 1960 Unknown [id number] 2.16.840.1.450411.3.579 .2.593 1960 Unknown [id number] 2.16.840.1.622787.3.579 .2.593 1960 Unknown [id number] 2.16.840.1.423437.3.579 .2.593 1960 Unknown [id number] 2.16.840.1.631295.3.579 .2.593 1960 Unknown [id number] 2.16.840.1.300512.3.579 .2.593 1960 Unknown [id number] 2.16.840.1.134550.3.579 .2.727 1960 Unknown [id number] 2.16.840.1.121959.3.579 .2.1259 1960 Unknown [id number] 2.16.840.1.188421.3.579 .2.1259 1960 Unknown [id number] 2.16.840.1.070365.3.579 .2.1259 1958 Self-pay 1958 Unknown [id number] Social History Date Type Detail Facility Start: 10-20-2024 Sex Assigned At [facility] Other Start: 10-20-2024 Tobacco smoking stat [facility] Never smoked tobacco [facility] Start: 10-20-2024 Tobacco use and exposure Smokeless tobacco non-user [facility] Start: 10-20-2024 End: 03-06-2025 Alcoholic beverage intake Ex-drinker (finding) [facility] Start: 10-20-2024 History of Social function [facility] Start: 1960 Sex assigned at Not on file N [facility] Start: 06-23-2024 Gender identity Identifies as female gender (finding) [facility] History of Present illness Narrative 03-06-2025 Aura Mcfarland NP - 03/06/2025 3:00 PM EDT Note Date & Type Note Facility 03-06-2025 History of Presen t illness Narrative Reason for Appointment: Patient ID: Hope Matos is a 64 y.o. female who presents for Well Women Visit Patient presents today for Annual Exam. MEDICATIONS Current Outpatient Medications Medication Instructions albuterol (2.5 MG/3ML) 0.083% nebulizer solution INHALE 3 ML EVERY 6 HOURS NEEDED Multiple Vitamin (MULTIVITAMIN ADULT PO) 1 each, Daily ALLERGIES Allergies Allergen Reactions Estrogens Shortness of breath Acetaminophen Other Reaction(s): Hives Codeine Latex Itching Other Reaction(s): Hives Oxycodone Other Reaction(s): Hives Sulfamethoxazole Other Reaction(s): Hives Sulfamethoxazole-Trimethoprim Other Reaction(s): hives, Not available Trimethoprim Other Reaction(s): Hives PROBLEMS Active Ambulatory Problems Diagnosis Date Noted No Active Ambulatory Problems Resolved Ambulatory Problems Diagnosis Date Noted No Resolved Ambulatory Problems No Additional Past Medical History HISTORY PAST MEDICAL HISTORY SOCIAL HISTORY History reviewed. No pertinent past medical history. Social History Tobacco Use Smoking status: Never Smokeless tobacco: Never Vaping Use Vaping status: Never Used Substance Use Topics Alcohol use: Not Currently Drug use: Never FAMILY HISTORY Family History Problem Relation Name Age of Onset Cancer Sister SURGICAL HISTORY Past Surgical History: Procedure Laterality Date HYSTERECTOMY TUBAL LIGATION REVIEW OF SYSTEMS Review of Systems: Review of Systems Constitutional: Negative. HENT: Negative. Eyes: Negative. Respiratory: Negative. Cardiovascular: Negative. Gastrointestinal: Negative. Genitourinary: Negative. Positive for vaginal dryness. Musculoskeletal: Negative. Skin: Negative. Neurological: Negative. Psychiatric/Behavioral: Negative. Hematological: Negative. Endocrine: Negative. Allergic/Immunologic: Negative. OBJECTIVE Objective: Physical Exam Constitutional: Appearance: Normal appearance. She is well-developed. Genitourinary: Vulva normal. Genitourinary Comments: Small speculum needed related to atrophic vaginitis. Breasts: Breasts are soft. Right: Normal. Left: Normal. Cardiovascular: Rate and Rhythm: Normal rate and regular rhythm. Pulmonary: Effort: Pulmonary effort is normal. Breath sounds: Normal breath sounds. Abdominal: General: Bowel sounds are normal. There is no distension. Palpations: Abdomen is soft. Tenderness: There is no abdominal tenderness. There is no guarding or rebound. Musculoskeletal: General: No swelling. Normal range of motion. Right lower leg: No edema. Left lower leg: No edema. Neurological: Mental Status: She is alert and oriented to person, place, and time. Skin: General: Skin is warm and dry. Psychiatric: Mood and Affect: Mood normal. Behavior: Behavior normal. Vitals and nursing note reviewed. Exam conducted with a reconciliation coordinator present. Vitals: Estimated body mass index is 27.94 kg/m as calculated from the following: Height as of 24: 5' 4 . Weight as of this encounter: 162 lb 12.8 oz. BP: 120/80 No LMP recorded. Patient has had a hysterectomy. ASSESSMENT & PLAN ICD-10-CM 1. Well woman exam with routine gynecological exam Z01.419 THIN PREP TIS PAP AND HR HPV DNA POCT urinalysis dipstick manually resulted 2. Breast cancer screening by mammogram Z12.31 Bilateral screening mammogram Bilateral screening mammogram 3. Postmenopausal state Z78.0 DEXA bone density Annual Exam: Patient presents today for an annual exam. Patient states she is doing well . Pap was obtained without difficulty. Patient with findings consistent with atrophic vaginitis including dyspareunia and reported side effects with nasal bleeding in the past related to oral estrogen leading her urologist to recommend discontinuing the use of oral estrogen. She also at that time discontinued the use of vaginal estrogen. She currently uses olive oil and coconut oil for vaginal lubrication but continues with vaginal pain with intercourse. We discussed systemic absorption with vaginal cream and is going to trial this medication. Should she have any side effects or concerns she will reach out to our office. Orders Placed This Encounter Procedures Bilateral screening mammogram DEXA bone density POCT urinalysis dipstick manually resulted Follow Up: Patient is to return in one year for annual unless needed otherwise. Documented by Aura Mcfarland NP on behalf of: Andrew Stahl DO documented in this encounter [facility] History of Present illness Narrative 10-20-2024 [...] AP pelvis, right hip taken in the [place] office saved to the permanent record shows [...] be a big aggravator. She also sits Uzbek-style quite often which may cause some pain in that area. We discussed conservative management. She would like to move forward with hip arthrogram. We discussed the perioperative course, time, healing, commitment and expectations. We discussed ferry terminal agent definitive role of total hip replacement. Indications [...] of pain and plan potential surgical treatment. [email or web address] Other Evaluation note Note Date & Type Note Facility Evaluation note No Information [employer] Other Evaluation note Note Date & Type Note Facility Evaluation note Diagnosis Left hip pain- Primary Pain in joint, pelvic region and thigh documented in this encounter [facility] Evaluation note Note Date & Type Note Facility Evaluation note Diagnosis Postmenopausal atrophic vaginitis- Primary Well woman exam with routine gynecological exam Routine gynecological examination Breast cancer screening by mammogram Postmenopausal state Asymptomatic postmenopausal status (age-related) (natural) documented in this encounter [facility] History general Narrative - Reported Note Date & Type Note Facility History general Narrative - Reported Type Surgical History C section x3 Surgical History hysterectomy Surgical History gall bladder Hospitalization History see above [email or web address] Other Summary Purpose Family History No Family [...] section and content) DATE CREATED AUTHOR 07/12/2019 [facility] DATE CREATED AUTHOR AUTHOR'S ORGANIZ ATION 01/16/2022 [facility] DATE CREATED AUTHOR AUTHOR'S ORGANIZ ATION 10/03/2022 [facility] dical Specialist DATE CREATED AUTHOR AUTHOR'S ORGANIZ ATION 04/09/2023 [facility] DATE CREATED AUTHOR AUTHOR'S ORGANIZ ATION 01/28/2025 Luis Sharma [facility] DATE CREATED AUTHOR AUTHOR'S ORGANIZ ATION 03/07/2025 [facility] dical Specialists EPIC REASON FOR VISIT (unrecogniz ed section and content) Reason Comments Pain Reason Comments Well Women Visit Care Teams (unrecognized sec tion and content) Admissions Assistant Relationship Specialty Start Date End Date Paddy Stone MD [address] [place] [address] PCP - General Family Medicine 10/05/24 Admissions Assistant Relationship Specialty Start Date End Date Paddy Stone MD [address] [place] [address] PCP - General Family Medicine 10/05/24 Admissions Assistant Relationship Specialty Start Date End Date Paddy Stone MD [address] [place] [address] PCP - General Family Medicine 10/05/24 Admissions Assistant Relationship Specialty Start Date End Date Paddy Stone MD [address] [place] [address] PCP - General Family Medicine 10/05/24 FOR [...] BE BASED ON THE PRIMARY CLINICAL RECORDS. [facility]. provides no warranty or guarantee of the accuracy or completeness of information in this document.
== END 2025-04-10 11:06 | disposition home or self-care (01) ==
LOC: RAD 11:06
PROVIDERS: PCP Family Medicine; Visit Provider Family Medicine
DX: S93.601A Unspecified sprain of right foot, initial encounter (principal)
CPT/HCPCS: 73610

== ENCOUNTER 2025-07-24 09:52 | Outpatient (OUT) | payer OTHER, SELFPAY ==
--- OUTSIDE RECORDS SUMMARY | 2025-07-24 09:54 | XMS_ITS | Patient Health Record ---
Author Organization [facility] Address [facility] [place] [address] Care Team Providers Care Head Start Director Name Role Phone Naif Stone MD Primary Care Provider Derek Hilliard Unavailable [phone] Allergies Allergen (clinical drug ingredient) Drug/Non Drug Allergy documented on EMR Reaction Allergy Type Onset Date Status Codeine Phosphate Unknown Drug Allergy Active acetaminophen / oxycodone Percocet Unknown Drug Allergy Active Latex Exam Gloves Unknown Drug Allergy Active Reason For Referral No Information Social History Tobacco Use: Social History Observation Description Date Details (start date - stop date) Never Smoker NA - NA tobacco use Question Answer Notes Patient is a: non smoker Problems Problem Type SNOMED Code ICD Code Onset Dates Problem Status W/U Status Risk Notes Problem Pain in limb (93583909) Pain in soft tissues of limb (729.5) Active confirmed Problem Hallux valgus (acquired) (735.0) Active confirmed Plan Of Treatment No Information Insurance Providers Payer Name Payer Address Payer Phone Subscriber Number Group Number Insured Name Patient Relationship to Insured Coverage Start Date Coverage End Date [employer] [address] [place] [address] [id number] Cony Mitchell Self - patient is the insured Medical (General) History Medical History History ICD Code cancer Surgical History Surgery Date(Month/Year) 8 foot operationts to remove neuroma 200 6 cholecystectomy 05/2013
--- OUTSIDE RECORDS SUMMARY | 2025-07-24 09:54 | XMS_ITS | Clinical Summary ---
Author Organization [facility] Address [address] [place], [place] [id number] Care Team Providers Care Ruby On Rails Engineer Name Role Phone Naif Stone MD Primary Care Provider [phone] Allergies Active Allergy Reactions Criticality Noted Date Comments Latex Itching 05/16/2009 Active Problems Problem Noted Date Diagnosed Date Personal History of Malignant Melanoma of Skin 1 12/01/2008 Lentigo 10/01/2009 Benign neoplasm of skin of lower limb, including hip 05/31/2009 Melanoma of skin, site unspecified 04/27/2009 Other chronic dermatitis due to solar radiation 04/27/2009 Social History Tobacco Use Types Packs/Day Years Used Date Smoking Tobacco: Never Assessed Comments Unknown Sex and Gender Information Value Date Recorded Sex Assigned at Not on file Legal Sex Female 8:17 AM EST Gender Identity Not on file Sexual Orientation Not on file Plan of Treatment Health Maintenance Due Date Last Done Comments Anxiety Screening 1979 Depression Screening 1979 HIV Screening 1979 Hepatitis C Screening 1979 DTaP,Tdap,Td Vaccine (1 - Tdap) 1980 Cervical Cancer Screening [address] Colonography 2006 Cologuard (FIT-DNA) 2006 Colonoscopy 2006 Colorectal Cancer Screening 2006 Diabetes Screening 2006 Fecal Occult Blood 2006 Lipid Screening 2006 Sigmoidoscopy 2006 Pneumococcal Vaccine: 50+ (1 of 1 - PCV) 2011 Shingrix Vaccine (1 of 2) 2011 Influenza Vaccine (#1) 2025 RSV Vaccine (1 - 1-dose 75+ series) 2036 Insurance [facility] [place] [id number] Care Teams Ruby On Rails Engineer Relationship Specialty Start Date End Date Naif Stone MD PCP - General 11/28/08
--- OUTSIDE RECORDS SUMMARY | 2025-07-24 09:54 | XMS_ITS | Encounter Summary ---
Author Organization [facility] Address [address] [place] [address] Care Team Providers Care Cotton Bag Clipper Name Role Phone Naif Stone MD Primary Care Provider [phone] Encounter Details Date Type Department Care Team (Late st Contact Info) Description 03/16/2025 Orders Only [facility] [address] [email or web address] [id number] Payton Ramirez LPN [address] [place] [id number] Social History Tobacco Use Types Packs/Day Years Used Date Smoking Tobacco: Never Smokeless Tobacco: Never Alcohol Use Standard Drinks/Week Comments Not Currently 0 (1 standard drink = 0.6 oz pur e alcohol) Comments No Sex and Gender Information Value Date Recorded Sex Assigned at Not on file Legal Sex Female 7:20 PM EDT Gender Identity Female 06/23/2024 1:03 PM EDT Sexual Orientation Not on file documented as of this encounter Plan of Treatment Not on file documented as of this encounter Procedures Procedure Name Priority Date/Time Associated Diagnosis Comments PAP SMEAR Routine 03/06/2025 12:00 AM EDT documented in this encounter Results * Pap Smear (03/06/2025 12:00 AM EDT) Swab Cervical swab / Unknown us Michi Maribeth DO LAB CYTOLOGY ORDERABLES Final Re sult EXTERNAL LAB documented in this encounter Visit Diagnoses Not on filedocumented in this encounter Care Teams Cotton Bag Clipper Relationship Specialty Start Date End Date Naif Stone MD PCP - General Family Medicine 10/05/24 documented as of this encounter
--- OUTSIDE RECORDS SUMMARY | 2025-07-24 09:54 | XMS_ITS | Clinical Summary ---
Author Organization [facility] Address [address] [facility] [place] [address] Care Team Providers Care Crop Adjuster Name Role Phone Naif Stone MD Primary Care Provider [phone] Allergies Active Allergy Reactions Criticality Noted Date Comments Acetaminophen 02/08/2020 Other Reaction(s): Hives Codeine 10/20/2024 Estrogens Shortness of breath High 10/20/2024 Latex Itching 05/16/2009 Other Reaction(s): Hives Oxycodone 02/08/2020 Other Reaction(s): Hives Sulfamethoxazole 02/08/2020 Other Reaction(s): Hives Sulfamethoxazole-Trimethop rim 10/20/2024 Other Reaction(s): hives, Not available Trimethoprim 02/08/2020 Other Reaction(s): Hives Medications albuterol (2.5 MG/3ML) 0.083% nebulizer solution INHALE 3 ML EVERY 6 HOURS NEEDED 09/05/2024 Active Multiple Vitamin (MULTIVITAMIN ADULT PO) Take 1 each by mouth Daily Active Active Problems No known active problems Family History Medical History Relation Name Comments Cancer Sister Relation Name Status Comments Paternal Grandfather Alive Sister Social History Tobacco Use Types Packs/Day Years Used Date Smoking Tobacco: Never Smokeless Tobacco: Never Tobacco Cessation:Counseling Given: Not Answered Alcohol Use Standard Drinks/Week Comments Not Currently 0 (1 standard drink = 0.6 oz pur e alcohol) Comments No Sex and Gender Information Value Date Recorded Sex Assigned at Not on file Legal Sex Female 7:20 PM EDT Gender Identity Female 06/23/2024 1:03 PM EDT Sexual Orientation Not on file Last Filed Vital Signs Vital Sign Reading Time Taken Comments Blood Pressure 120/80 03/06/2025 2:59 PM EDT Pulse - - Temperature 36.2 C (97.1 F) 10/20/2024 2:45 PM EST Respiratory Rate - - Oxygen Saturation - - Inhaled Oxygen Concentration - - Weight 73.8 kg (162 lb 12.8 oz) 03/06/2025 2:59 PM EDT Height 162.6 cm (5' 4 ) 10/20/2024 2:45 PM EST Body Mass Index 27.94 10/20/2024 2:45 PM EST Plan of Treatment Health Maintenance Due Date Last Done Comments CT Colonography 1961 Colonoscopy 1961 Colorectal Cancer Screening 1961 FIT-DNA 1961 FIT 1961 FOBT 1961 Sigmoidoscopy 1961 HPV/Cotest 1991 Mammogram 2001 Influenza Vaccine (#1) 2025 Cervical Cancer Screening 03/06/2028 Pap Smear 03/06/2028 03/06/2025 Procedures Procedure Name Priority Date/Time Associated Diagnosis Comments PAP SMEAR Routine 03/06/2025 12:00 AM EDT from Last 3 Months or Most Recently Relevant to Health Maintenance Results * Pap Smear (03/06/2025 12:00 AM EDT) Swab Cervical swab / Unknown us Michi Maribeth DO LAB CYTOLOGY ORDERABLES Final Re sult EXTERNAL LAB from Last 3 Months or Most Recently Relevant to Health Maintenance Insurance [facility] Care Teams Crop Adjuster Relationship Specialty Start Date End Date Naif Stone MD PCP - General Family Medicine 10/05/24
--- NOTE | 2025-07-24 09:57 | MM_ITS ---
Patient Name: JOCELYNE MATOS MR#: [id number] : 1960 Exam Date: 07/24/2025 Ordering Doctor: DR PADDY HER . RADIOLOGY REPORT PROCEDURE: MM TOMOSYNTHESIS SCREENING BI COMPARISON: MM TOMOSYNTHESIS SCREENING BI, 07/27/2024. MM TOMOSYNTHESIS SCREENING BI, 06/17/2023. MG MAMM SCREEN 3D ZARI CAD, 06/16/2022. MG MAMM ZARI SCRN W CAD DIG, 06/22/2014. INDICATIONS: Screening Calculator Name NCI Breast Cancer Risk Assessment Tool 5 Year Breast Cancer Risk 1.70% Lifetime Breast Cancer Risk 7.10% Personal Breast Cancer No Personal Ovarian Cancer No Treatments Excision Family Cancers None LOCATION: [facility] BREAST COMPOSITION: There are scattered areas of fibroglandular density. FINDINGS: DIAGNOSTIC CATEGORY 1--NEGATIVE. RIGHT BREAST: No significant suspicious finding. LEFT BREAST: No significant suspicious finding. RECOMMENDATIONS: ROUTINE MAMMOGRAM AND CLINICAL EVALUATION IN 12 MONTHS. Dictated by: Leo Cuenca DO on 07/24/2025 at 11:32 Approved by: Leo Cuenca DO on 07/24/2025 at 11:33
--- OUTSIDE RECORDS SUMMARY | 2025-07-24 10:05 | XMS_ITS | CCD ---
Author Organization [facility] Care Team Providers Care [employer] Engraver Hand Name Role Phone UNKNOWN, PROVIDER Admitting Unavailable UNKNOWN, PROVIDER Attending Unavailable PADDY STONE Referring Unavailable PADDY STONE Primary Care Unavailable Jose A Petersen Unavailable ARDEN ., DR THOMASON Primary Care Unavailable HOY ., DR THOMASON Consulting Unavailable HOY ., DR THOMASON Attending Unavailable HOY ., DR THOMASON Admitting Unavailable LEHIGH, DR WALDO Perkins Consulting Unavailable HOY ., [...] Unavailable Paddy Stone MD Primary Care Provider [phone] KIANA LEMONS Referring Unavailable KIANA LEMONS Attending Unavailable KIANA LEMONS Referring Unavailable ANDREW STAHL Attending Unavailable Allergies Allergy Classification Reported Allergen(s) Allergy Type Date of Onset Reaction(s) Facility (3 sources) Acetaminophen / oxyCODONE Drug Allergy 10-19-20 14 [facility] Repository (1 source) Sulfamethoxazole / Trimethoprim Drug Allergy 05-17-20 19 [facility] Repository (2 sources) Acetaminophen / oxyCODONE Drug Allergy Unknown [facility] Other (4 sources) Latex Propensity to adverse reactions Unknown [facility] [employer] [facility] Other (2 sources) Sulfacetamide / Sulfur Drug Allergy Unknown [facility] Other (8 sources) Sulfamethoxazole / Trimethoprim Drug Allergy 10-20-20 24 Unknown [facility] Other (2 sources) Codeine Drug Allergy 10-12-20 14 [facility] Repository (2 sources) Latex Drug allergy (disorder) 10-25-20 14 [facility] (1 source) Sulfamethoxazole / Trimethoprim Drug Allergy 01-08-20 17 [facility] (1 source) Sulfonamides (Antibiotic) Drug allergy (disorder) 01-08-20 17 [facility] (6 sources) Acetaminophen Drug Allergy 02-08-[address] [facility] Healthcare (6 sources) Codeine Drug Allergy 10-20-20 24 [facility] (7 sources) Estrogens; Translations: [estrogens] Drug Allergy 10-20-[address] [facility] Healthcare (6 sources) Latex Allergy to substance 05-16-[address] [facility] Healthcare (6 sources) oxyCODONE Drug Allergy 02-08-20 20 [facility] (6 sources) Sulfamethoxazole Allergy to substance 02-08-20 [facility] (6 sources) Trimethoprim Drug Allergy 02-08-20 20 [facility] Medications Current Medications Medication Drug Class(es) [...] GDLNon AGE GDLN ACOG TESTING Note . [facility] Comment on above: TESTS RESULT FLAG UN ITS REF RANGE LAB Clinician Provided Cytology Information Source.............Vagina No. of containers..01 ThinPrep Vial Age Algo ACOG Yana... FLAG LEGEND: L-Low Normal,H-High Normal,LL-Alert Low,HH-Alert High <-Panic Low,>-Panic High,A-Abnormal,AA-Critical Abnormal Performed at: 01 =[address] [phone] Lennie Ballesteros MD, HPV APTIMA Negative Negative [facility] Comment on above: This nucleic acid am plification test detects fourteen high- risk HPV types (16,18,31,33,35,39,45,51,52,56,58,59,66,68) without differentiation. Performed at: =[address] [id number] Fountain Clerk: Lennie Ballesteros MD, Phone: [phone] Performed at: [address] [id number] Fountain Clerk: Lennie Ballesteros MD, Phone: [phone] IGP, APTIMA HPV, RFX 16/18,45 Note . [facility] Comment on above: TESTS RESULT FLAG UN ITS REF RANGE LAB DIAGNOSIS: 02 NEGATIVE FOR INTRAEPITHELIAL LESION OR MALIGNANCY. Specimen adequacy: 02 Satisfactory for evaluation. No endocervical cells are present. This is consistent with a history of hysterectomy. Performed by: 02 Ramya Estrella Plastic Sheets Finishing Supervisor (ASCP) . 02 Note: Note 02 The [...] Low,>-Panic High,A-Abnormal,AA-Critical Abnormal Performed at: [address] [facility] [address] [phone] Lennie Ballesteros MD, [facility]AT[facility] 04-02-2023 Creatinine [Mass/Vol] 0.80 mg/dL Normal 0.55-1.02 [facility] Comment on above: Performed By: #### L IPID, CMP, T7, TSH #### [facility] [address] [address] [address] Nga Ribeiro EGFR-AF TONGAN >60 Normal >=60 [facility] Comment on above: Performed By: #### L IPID, CMP, T7, TSH #### [facility] [address] [address] [address] Nga Ribeiro EGFR-NON AF TONGAN >60 Normal >=60 [facility] Comment on above: Performed By: #### L IPID, CMP, T7, TSH #### [facility] [address] ABD/PELV W CONon [...] WALDO BUSTAMANTE Date: 2023-04-02 15:30 Normal [facility] OCC BLD IMMUNO SCREENon OCCULT BLOOD Negative Normal NEGATIVE [facility] Comment on above: Performed By: #### O BSCRN #### [facility] [address] [place] [address] Dr. Nga Ribeiro INSULINon 10-31-2022 Insulin 8.8 uIU/mL Normal 2.6-24.9 [facility] Comment on above: Performed By: #### L IPID, CMP, T7, TSH #### [facility] [address] [place] [address] Dr. Nga Ribeiro CBC AUTO DIFFon 10-30-2022 BASO # 0.1 103/ul Normal 0.0-0.1 [facility] Comment on above: Performed By: #### L IPID, CMP, T7, TSH #### [facility] [address] [place] [address] Dr. Nga Ribeiro Basophils/100 WBC (Bld) 1.4 % Normal 0.2-2.0 [facility] Comment on above: Performed By: #### L IPID, CMP, T7, TSH #### [facility] [address] [place] [address] Dr. gNa Ribeiro EO # 0.3 103/ul Normal 0.0-0.7 [facility] Comment on above: Performed By: #### L IPID, CMP, T7, TSH #### [facility] [address] [place] [address] Dr. Nga Ribeiro Eosinophils/100 WBC (Bld) 6.3 % Normal 0.9-7.0 [facility] Comment on above: Performed By: #### L IPID, CMP, T7, TSH #### [facility] [address] [place] [address] Dr. Nga Ribeiro Erythrocyte distribution width (RBC) [Ratio] 12.7 % Normal 11.0-15.0 [facility] Comment on above: Performed By: #### L IPID, CMP, T7, TSH #### [facility] [address] [place] [address] Dr. Nga Ribeiro Hematocrit (Bld) [Volume fraction] 40.4 % Normal 36.0-48.0 [facility] Comment on above: Performed By: #### L IPID, CMP, T7, TSH #### [facility] [address] [place] [address] Dr. Nga Ribeiro Hemoglobin (Bld) [Mass/Vol] 13.8 g/dL Normal 12.0-16.0 [facility] Comment on above: Performed By: #### L IPID, CMP, T7, TSH #### [facility] [address] [place] [address] Dr. Nga Ribeiro IG # 0.01 10e3/ul Normal 0.00-0.03 [facility] Comment on above: Performed By: #### L IPID, CMP, T7, TSH #### [facility] [address] [place] [address] Dr. Nga Ribeiro IG % 0.2 % Normal 0.0-0.5 [facility] Comment on above: Performed By: #### L IPID, CMP, T7, TSH #### [facility] [address] [place] [address] Dr. Nga Ribeiro LYMPH # 1.9 103/ul Normal 1.2-3.8 [facility] Comment on above: Performed By: #### L IPID, CMP, T7, TSH #### [facility] [address] [address] [address] Nga Ribeiro Lymphocytes/100 WBC (Bld) 46.4 % Normal 20.5-60.0 [facility] Comment on above: Performed By: #### L IPID, CMP, T7, TSH #### [facility] [address] [place] [address] Dr. Nga Ribeiro MANUAL DIFF REQ NO Normal [facility] Comment on above: Performed By: #### L IPID, CMP, T7, TSH #### [facility] [address] [place] [address] Dr. Nga Ribeiro MCH (RBC) [Entitic mass] 30.6 pg Normal 26.7-34.0 [facility] Comment on above: Performed By: #### L IPID, CMP, T7, TSH #### [facility] [address] [place] [address] Dr. Nga Ribeiro MCHC (RBC) [Mass/Vol] 34.2 g/dL Normal 29.9-35.2 [facility] Comment on above: Performed By: #### L IPID, CMP, T7, TSH #### [facility] [address] [place] [address] Dr. Nga Ribeiro MCV (RBC) [Entitic vol] 89.6 fL Normal 81.0-99.0 [facility] Comment on above: Performed By: #### L IPID, CMP, T7, TSH #### [facility] [address] [place] [address] Dr. Nga Ribeiro MONO # 0.4 103/ul Normal 0.3-0.8 [facility] Comment on above: Performed By: #### L IPID, CMP, T7, TSH #### [facility] [address] [place] [address] Dr. Nga Ribeiro Monocytes/100 WBC (Bld) 9.1 % Normal 1.7-12.0 [facility] Comment on above: Performed By: #### L IPID, CMP, T7, TSH #### [facility] [address] [address] [address] Nga Ribeiro NEUT # 1.5 103/ul Normal 1.4-6.5 [facility] Comment on above: Performed By: #### L IPID, CMP, T7, TSH #### [facility] [address] [address] [address] Nga Ribeiro Neutrophils/100 WBC (Bld) 36.6 % Critically low 43.0-75.0 [facility] Comment on above: Performed By: #### L IPID, CMP, T7, TSH #### [facility] [address] [address] [address] Nga Ribeiro Platelet mean volume (Bld) [Entitic vol] 9.2 fL Critically low 9.5-13.5 [facility] Comment on above: Performed By: #### L IPID, CMP, T7, TSH #### [facility] [address] [address] [address] Nga Ribeiro PLT 194 103/ul Normal 150-450 [facility] Comment on above: Performed By: #### L IPID, CMP, T7, TSH #### [facility] [address] [address] [address] Nga Ribeiro RBC 4.51 106/ul Normal 4.20-5.40 [facility] Comment on above: Performed By: #### L IPID, CMP, T7, TSH #### [facility] [address] [address] [address] Nga Ribeiro WBC 4.2 103/ul Normal 4.0-11.0 [facility] Comment on above: Performed By: #### L IPID, CMP, T7, TSH #### [facility] [address] [place] [address] Dr. Nga Ribeiro FREE THYROXINE INDEX T7on FTI 2.66 Normal 1.30-4.50 [facility] Comment on above: Performed By: #### L IPID, CMP, T7, TSH #### [facility] [address] [place] [address] Dr. Nga Ribeiro T3U 36.0 % Normal 30.0-39.0 [facility] Comment on above: Performed By: #### L IPID, CMP, T7, TSH #### [facility] [address] [address] [address] Nga Ribeiro T4 [Mass/Vol] 7.40 ug/dL Normal 4.80-13.90 [facility] Comment on above: Performed By: #### L IPID, CMP, T7, TSH #### [facility] [address] [address] [address] Nga Ribeiro GLYCOHEMOGLOBIN A1Con 2021 ADA RECOMMENDATION SEE BELOW Normal [facility] Comment on above: Result Comment: ADA RECOMMENDED LIMIT 4.0 - 6.0 ADA THERAPEUTIC TARGET < 7.0 ACTION SUGGESTED > 7.0 Performed By: #### A 1C #### [facility] [address] [place] [address] Dr. Nga Ribeiro Glucose [Mass/Vol] 94 mg/dL Normal [facility] Comment on above: Performed By: #### A 1C #### [facility] [address] [address] [address] Nga Ribeiro HbA1c (Bld) [Mass fraction] 4.9 % Normal 4.5-6.2 [facility] Comment on above: Performed By: #### A 1C #### [facility] [address] [place] [address] Dr. Nga Ribeiro IRONon 10-30-2022 Iron [Mass/Vol] 119.0 ug/dL Normal 50.0-170.0 [facility] Comment on above: Performed By: #### I CHARISMA #### [facility] [address] [address] [address] Nga Ribeiro LIPID PROFILEon 10-30-2022 CHOL-HDL RATIO NORM SEE BELOW Normal [facility] Comment on above: Result Comment: 3.3 - 4.4 LOW RISK 4.4 - 7.1 AVERAGE RISK 7.1 - 11.0 MODERATE RISK >11.0 HIGH RISK Performed By: #### L IPID, CMP, T7, TSH #### [facility] [address] [address] [address] Nga Ribeiro Cholesterol [Mass/Vol] 201 mg/dL Critically high <=200 [facility] Comment on above: Performed By: #### L IPID, CMP, T7, TSH #### [facility] [address] [address] [address] Nga Ribeiro Cholesterol in HDL [Mass/Vol] 78 mg/dL Critically high 40-60 [facility] Comment on above: Performed By: #### L IPID, CMP, T7, TSH #### [facility] [address] [address] [address] Nga Ribeiro Cholesterol in LDL [Mass/Vol] 108.8 mg/dL Normal [facility] Comment on above: Performed By: #### L IPID, CMP, T7, TSH #### [facility] [address] [address] [address] Nga Ribeiro Cholesterol.total/Ch olesterol in HDL [Mass ratio] 2.6 {ratio} Normal [facility] Comment on above: Performed By: #### L IPID, CMP, T7, TSH #### [facility] [address] [address] [address] Nga Ribeiro HDL NORMAL > or = 60 mg/dl - LO W CARDIOVASCULAR RISK <40 mg/dl - HIGH CARDIOVASCULAR RISK Normal [facility] Comment on above: Performed By: #### L IPID, CMP, T7, TSH #### [facility] [address] [address] [address] Nga Ribeiro LDL CALC NORMAL SEE BELOW Normal [facility] Comment on above: Result Comment: <100 mg/dl OPTIMAL 100 - 129 mg/dl NEAR OR ABOVE OPTIMAL 130 - 159 mg/dl BORDERLINE HIGH 160 - 189 mg/dl HIGH >190 mg/dl VERY HIGH Performed By: #### L IPID, CMP, T7, TSH #### [facility] [address] [address] [address] Nga Ribeiro Triglyceride [Mass/Vol] 71 mg/dL Normal <=150 [facility] Comment on above: Performed By: #### L IPID, CMP, T7, TSH #### [facility] [address] [address] [address] Nga Ribeiro VLDL CALC 14.2 mg/dL Normal [facility] Comment on above: Performed By: #### L IPID, CMP, T7, TSH #### [facility] [address] [address] [address] Nga Ribeiro PROF 14(COMP METB)on 022 Albumin [Mass/Vol] 3.8 g/dL Normal 3.4-5.0 [facility] Comment on above: Performed By: #### L IPID, CMP, T7, TSH #### [facility] [address] [address] [address] Nga Ribeiro Albumin/Globulin [Mass ratio] 1.1 {ratio} Normal [facility] Comment on above: Performed By: #### L IPID, CMP, T7, TSH #### [facility] [address] [address] [address] Nga Ribeiro ALP [Catalytic activity/Vol] 91 U/L Normal 46-116 [facility] Comment on above: Performed By: #### L IPID, CMP, T7, TSH #### [facility] [address] [address] [address] Nga Ribeiro ALT [Catalytic activity/Vol] 19 U/L Normal 14-59 [facility] Comment on above: Performed By: #### L IPID, CMP, T7, TSH #### [facility] [address] [address] [address] Nga Ribeiro Anion gap [Moles/Vol] 9.2 mmol/L Normal [facility] Comment on above: Performed By: #### L IPID, CMP, T7, TSH #### [facility] [address] [address] [address] Nga Ribeiro AST [Catalytic activity/Vol] 18 U/L Normal 15-37 [facility] Comment on above: Performed By: #### L IPID, CMP, T7, TSH #### [facility] [address] [address] [address] Nga Ribeiro Bilirubin [Mass/Vol] 0.5 mg/dL Normal 0.2-1.0 [facility] Comment on above: Performed By: #### L IPID, CMP, T7, TSH #### [facility] [address] [place] [address] Dr. Nga Ribeiro Calcium [Mass/Vol] 9.5 mg/dL Normal 8.5-10.1 [facility] Comment on above: Performed By: #### L IPID, CMP, T7, TSH #### [facility] [address] [address] [address] Nga Ribeiro Chloride [Moles/Vol] 105 mmol/L Normal 98-107 [facility] Comment on above: Performed By: #### L IPID, CMP, T7, TSH #### [facility] [address] [place] [address] Dr. Nga Ribeiro CO2 [Moles/Vol] 29.5 mmol/L Normal 21.0-32.0 [facility] Comment on above: Performed By: #### L IPID, CMP, T7, TSH #### [facility] [address] [place] [address] Dr. Nga Ribeiro Creatinine [Mass/Vol] 0.68 mg/dL Normal 0.55-1.02 [facility] Comment on above: Performed By: #### L IPID, CMP, T7, TSH #### [facility] [address] [place] [address] Dr. Nga Ribeiro EGFR-AF TONGAN >60 Normal >=60 [facility] Comment on above: Performed By: #### L IPID, CMP, T7, TSH #### [facility] [address] [place] [address] Dr. Nga Ribeiro EGFR-NON AF TONGAN >60 Normal >=60 [facility] Comment on above: Performed By: #### L IPID, CMP, T7, TSH #### [facility] [address] [place] [address] Dr. Nga Ribeiro Globulin (S) [Mass/Vol] 3.6 g/dL Normal [facility] Comment on above: Performed By: #### L IPID, CMP, T7, TSH #### [facility] [address] [address] [address] Nga Ribeiro Glucose [Mass/Vol] 100 mg/dL Normal 74-106 [facility] Comment on above: Performed By: #### L IPID, CMP, T7, TSH #### [facility] [address] [address] [address] Nga Ribeiro Potassium [Moles/Vol] 4.7 mmol/L Normal 3.5-5.1 [facility] Comment on above: Performed By: #### L IPID, CMP, T7, TSH #### [facility] [address] [place] [address] Dr. Nga Ribeiro Protein [Mass/Vol] 7.4 g/dL Normal 6.4-8.2 [facility] Comment on above: Performed By: #### L IPID, CMP, T7, TSH #### [facility] [address] [place] [address] Dr. Nga Ribeiro Sodium [Moles/Vol] 139 mmol/L Normal 136-145 [facility] Comment on above: Performed By: #### L IPID, CMP, T7, TSH #### [facility] [address] [address] [address] Nga Ribeiro Urea nitrogen [Mass/Vol] 19.0 mg/dL Critically high 7.0-18.0 [facility] Comment on above: Performed By: #### L IPID, CMP, T7, TSH #### [facility] [address] [place] [address] Dr. Nga Ribeiro Urea nitrogen/Creatinine [Mass ratio] 27.9 mg/mg Normal [facility] Comment on above: Performed By: #### L IPID, CMP, T7, TSH #### [facility] [address] [place] [address] Dr. Nga Ribeiro TSHon 10-30-2022 TSH 0.871 uIU/mL Normal 0.358-3.740 [facility] Comment on above: Performed By: #### L IPID, CMP, T7, TSH #### [facility] [address] [place] [address] Dr. Nga Ribeiro Covid-19 PCR (CVDTB)on 10-01 SARS-CoV-2 (COVID-19) RNA VALENTINA+probe Ql (Unsp spec) Not detected Normal NOT DETECTED [facility] Comment on above: Result Comment: [...] for this test is supported by the [place] of Health and Human Service's declaration that [...] used). Performed By: #### C VDTBH #### [facility] [address] [address] [address] Nga Ribeiro INFLUENZA A AND B AGon 10-22 INFLUANEGH SEE BELOW Normal [facility] Comment on above: Result Comment: Nega tive for Flu A protein angiten. Infection due to Flu A cannot be ruled out. Flu A angiten in the sample may be below the detection limit of the test. Performed By: #### L IPID, CMP, T7, TSH #### [facility] [address] [address] [address] Nga Ribeiro INFLUBNEG SEE BELOW Normal [facility] Comment on above: Result Comment: Nega tive for Flu B protein antigen. Infection due to Flu B cannot be ruled out. Flu B antigen in the sample may be below the detection limit of the test. Performed By: #### L IPID, CMP, T7, TSH #### [facility] [address] [address] [address] Nga Ribeiro INFLUENZA A AG Negative Normal NEGATIVE SEE COMMENT [facility] Comment on above: Performed By: #### L IPID, CMP, T7, TSH #### [facility] [address] [place], [place] [address] Dr. Nga Ribeiro INFLUENZA B AG Negative Normal NEGATIVE SEE COMMENT [facility] Comment on above: Performed By: #### L IPID, CMP, T7, TSH #### [facility] [address] [place], [place] [address] Dr. Nga Ribeiro INTERNAL CONTROLS Within Normal Limits Normal Wi thin Normal Limits [facility] Comment on above: Performed By: #### L IPID, CMP, T7, TSH #### [facility] [address] [place], [place] [address] Dr. Nga Ribeiro MRI Shoulder w/o Lefton [...] by Maulik Stewart on 10/02/2022 1335 Normal [facility] Radiology Interventional Physician MG MAMM SCREEN 3D ZARI CADon 06-16-2022 MG MAMM SCREEN 3D ZARI CAD Patient: CONY MATOS Exam Date: 06/16/2022 : 1960 Gender:F Ordering : DR ANDREW STAHL . Admission #: [id number] Family : Order #: [id number] CLICK HERE TO VIEW EXAM RADIOLOGY REPORT [...] Treatments Excision Family Cancers None LOCATION: [facility] BREAST COMPOSITION: Scattered areas fibroglandular [...] Nixon M.D. on 06/16/2022 at 13:28 Normal [facility] PAP ACOG PANEL 2: 30 to 65on 05-30-2022 . . Normal [facility] Comment on above: Result Comment: Perf ormed at: WB Performed By: #### L IPID, CMP, T7, TSH #### [facility] [address] [address] [address] Nga Ribeiro Age Gdln ACOG Testing 30-65 Normal [facility] Comment on above: Performed By: #### L IPID, CMP, T7, TSH #### [facility] [address] [address] [address] Nga Ribeiro DIAGNOSIS: Comment Normal [facility] Comment on above: Result Comment: UNSA TISFACTORY FOR EVALUATION. Performed at: WB Performed By: #### L IPID, CMP, T7, TSH #### [facility] [id number] Nga Ribeiro HPV Aptima Negative Normal Negative [facility] Comment on above: Result Comment: This nucleic acid amplification test detects fourteen high-risk HPV types (16,18,31,33,35,39,45,51,52,56,58,59,66,68) without differentiation. Performed at: =G Performed By: #### L IPID, CMP, T7, TSH #### [facility] [address] [address] [address] Nga Ribeiro Methodology: Comment Normal [facility] Comment on above: Result Comment: This liquid based ThinPrep(R) pap test was screened with the use of an image guided system. Performed at: WB Performed By: #### L IPID, CMP, T7, TSH #### [facility] [address] [address] [address] Nga Ribeiro Note: Comment Normal [facility] Comment on above: Result Comment: The [...] #### L IPID, CMP, T7, TSH #### [facility] [address] [address] [address] Nga Ribeiro Performed by: Comment Normal [facility] Comment on above: Result Comment: Kolton Carpio, Plastic Sheets Finishing Supervisor (ASCP) Performed at: WB Performed By: #### L IPID, CMP, T7, TSH #### [facility] [address] [address] [address] Nga Ribeiro QC reviewed by: Comment Normal [facility] Comment on above: Result Comment: Adore Sloan, Supervisory Plastic Sheets Finishing Supervisor (ASCP) Performed at: WB Performed By: #### L IPID, CMP, T7, TSH #### [facility] [id number] Nga Ribeiro Recommendation: Comment Normal [facility] Comment on above: Result Comment: Sugg est follow up as clinically appropriate. Performed at: WB Performed By: #### L IPID, CMP, T7, TSH #### [facility] [address] [address] [address] Nga Ribeiro Specimen adequacy: Comment Normal [facility] Comment on above: Result Comment: Spec imen processed and examined but unsatisfactory for evaluation of epithelial abnormality because of insufficient cellularity. Performed at: WB Performed By: #### L IPID, CMP, T7, TSH #### [facility] [address] [address] [address] Nga Ribeiro MR knee RT wo conon 08-30-20 MR knee RT wo con [facility] [place] [address] [place] [address] MRI Report Signed Patient: Cony Matos MR#: [id number] 19 : 1960 Acct:[id number] Age/Sex: 60 / F ADM Date: 08/30/21 Loc: [facility] Room: Type: [facility] CLI Attending Dr: Jose A Petersen MD [...] Jamarcus Prado M.D.08/30/2021 11:36 AM Dictation Location: [place] [address] Transcribed By: [facility] 08/30/21 1136 Dictated By: Jamarcus Prado II, MD 08/30/21 1120 Signed By: 08/30/21 1136 Normal [facility] [place] X[place] RT 2Von 08-22-2021 XR knee RT [address]V [facility] [place] [address] [place] [address] XRay Report Signed Patient: Cony Matos MR#: [id number] 19 : 1960 Acct:[id number] Age/Sex: 60 / F ADM Date: 08/22/21 Loc: [facility] [place] Room: Type: [facility] Attending Dr: Jose A Petersen MD [...] Jamarcus Prado M.D.08/22/2021 1:26 PM Dictation Location: [place] [address] Transcribed By: BIJAN 08/22/21 1326 Dictated By: Jamarcus Prado II, MD 08/22/21 1325 Signed By: 08/22/21 1326 [facility] Cardiovascular Lab Reporton 05-17-2019 Cardiovascular Lab Report [facility] #: [id number] Department of Physician: Rico James M.D. Division of Service Date: 05/17/2019 Cardiology Birthdate: 1960 Adult Cardiovascular Room #: [place] [address] Cardiovascular Laboratory Report INDICATION: The patient is [...] signed informed consent. She was brought to clinical laboratory aides teacher in a fasting state. The right neck area was prepped and draped in usual fashion. Using ultrasound guidance and micropuncture technique, the right internal jugular vein was accessed. A 6-Angolan x 11 cm sheath was placed. A 6-Angolan Irvin catheter was used for right heart catheterization with measurement of pressures and calculation of cardiac output using the estimated Sherman method. Irvin catheter was removed. Jamar's test was favorable on the right. Access in the right radial artery was obtained using micropuncture technique, a 5-Angolan 11 cm Hydrophilic sheath was advanced. Verapamil was given through the sheath and heparin was administered intravenously. Bilateral selective coronary angiography was then performed using a 6-Angolan JL5 diagnostic catheter. This catheter was removed. [...] James M.D. Date Trans: 05/17/2019 01:54 P/timoteo [id number] cc: Paddy Stone M.D. [address] [place] [address] Normal [facility] Vital Signs Date Time Vital Sign Value Performing Clinician Facility 03-06-2025 14:59-0400 Body mass index (BMI) [Ratio] 27.94 kg/m2 Andrew Stahl DO Work Phone: [facility] 03-06-2025 14:59-0400 Body weight 73.85 kg Andrew Maribeth DO Work Phone: [facility] 03-06-2025 14:59-0400 Diastolic blood pressure 80 mm[Hg] Andrew Maribeth DO Work Phone: [facility] 03-06-2025 14:59-0400 Systolic blood pressure 120 mm[Hg] Andrew Maribeth DO Work Phone: [facility] 10-20-2024 14:45-0500 Body height 162.6 cm [employer] Work Phone: [facility] 10-20-2024 14:45-0500 Body mass index (BMI) [Ratio] 28.84 kg/m2 [employer] Work Phone: [facility] 10-20-2024 14:45-0500 Body temperature 97.11 [degF] [employer] Work Phone: [facility] 10-20-2024 14:45-0500 Body weight 76.2 kg [employer] Work Phone: [facility] 08-22-2021 10:00-0400 Body height 167.64 cm Jose A Petersen Other [facility] Other 08-22-2021 10:00-0400 Body mass index (BMI) [Ratio] 25.01 kg/m2 Jose A Olexa Other [facility] Other 08-22-2021 10:00-0400 Body weight 70.31 kg Jose A Olexa Other [facility] Other Encounters Encounter Date Encounter Type Care Provider Facility Start: 03-06-2025 End: 03-06-2025 Patient encounter procedure Andrew Maribeth DO Work Phone: [facility] Work Phone: Start: 03-06-2025 End: 03-06-2025 Periodic [...] [facility] External Department Unsolicited Start: 01-26-2025 ambulatory Facility:[facility] Start: 10-20-2024 End: 10-20-2024 Patient encounter procedure [...] abnormal findings DR PADDY STONE . [facility] Start: 11-03-2022 End: 11-03-2022 ambulatory [...] End: 10-03-2021 ambulatory Jose A Petersen Other [facility] Other Start: 10-03-2021 Telephone encounter Jose A Petersen [facility] Start: 08-22-2021 Office outpatient ne w 45 minutes Jose A Petersen [facility] Start: 05-17-2019 End: 05-18-2019 Patient encounter procedure PROVIDER UNKNOWN Facility:[facility] Procedures Date Procedure Procedure Detail Performing [...] 07-31-2024 Influenza vaccination Influenza Vacc ine (#1) [facility] Start: 2001 Screening for malignant neoplasm of breast Mammogram [facility] Start: 1991 Screening for malignant neoplasm of cervix [facility] Start: 1982 Screening for malignant neoplasm of cervix Pap Smear [facility] Start: 1961 Screening for malignant neoplasm of colon [facility] THIN PREP TIS PAP AN D HR HPV DNA THIN PREP TIS PAP AND HR HPV DNA Pathology and Cytology Routine Well woman exam with routine gynecological exam Ordered: 03/06/2025 [facility] Comment on above: Ordered: 03/06/2025 XR Hip - right 3 Views XR hip ri ght 2 or 3 views Imaging Routine Left hip pain 10/20/2024 2:49 PM EST [facility] Work Phone: Payers Date Payer Category Payer Private Health Insurance [facility] Member Subscriber Plan / Payer (Effective 2015-Present) Name: Cony Matos Relation to Subscriber: Spouse Name: SHAWNAJOHNATHAN Date of : 1957 Address: [address] [place] [address] Payer ID: [id number] (NAIC) Type: Not on file Address: [place] [id number] 1960 Unknown [id number] [id number] .2.647 1960 Unknown [id number] 2.16.840.1.356605.3.579 .2.593 1960 Unknown [id number] 2.16.840.1.824881.3.579 .2.593 1960 Unknown [id number] 2.16.840.1.819989.3.579 .2.593 1960 Unknown [id number] 2.16.840.1.303126.3.579 .2.593 1961 Unknown [id number] 2.16.840.1.019865.3.579 .2.593 1960 Unknown [id number] 2.16.840.1.866945.3.579 .2.593 1961 Unknown [id number] 2.16.840.1.974056.3.579 .2.593 1961 Unknown [id number] 2.16.840.1.526878.3.579 .2.593 1961 Unknown [id number] 2.16.840.1.575140.3.579 .2.727 1960 Unknown [id number] 2.16.840.1.513257.3.579 .2.1259 1960 Unknown [id number] 2.16.840.1.693989.3.579 .2.1259 1960 Unknown [id number] 2.16.840.1.704704.3.579 .2.1259 1958 Self-pay 1958 Unknown [id number] Social History Date Type Detail Facility Start: 10-20-2024 Sex Assigned [facility] Other Start: 10-20-2024 Tobacco smoking stat [facility] Never smoked tobacco [facility] Start: 10-20-2024 Tobacco use and exposure Smokeless tobacco non-user [facility] Start: 10-20-2024 End: 03-06-2025 Alcoholic beverage intake Ex-drinker (finding) [facility] Start: 10-20-2024 History of Social function [facility] Start: 1960 Sex assigned at Not on file [facility] [place] Start: 06-23-2024 Gender identity Identifies as female gender (finding) [facility] History of Present illness Narrative 03-06-2025 [...] nursing note reviewed. Exam conducted with a roll panner present. Vitals: Estimated body mass index is [...] AP pelvis, right hip taken in the [place] office saved to the permanent record shows [...] be a big aggravator. She also sits Stateless-style quite often which may cause some pain in that area. We discussed conservative management. She would like to move forward with hip arthrogram. We discussed the perioperative course, time, healing, commitment and expectations. We discussed [facility] definitive role of total hip replacement. Indications [...] of pain and plan potential surgical treatment. [facility] Other Evaluation note Note Date & Type Note Facility Evaluation note No Information [facility] Other Evaluation note Note Date & Type Note Facility Evaluation note Diagnosis Left hip pain- Primary Pain in joint, pelvic region and thigh documented in this encounter [facility] Evaluation note Note Date & Type Note Facility Evaluation note Diagnosis Postmenopausal atrophic vaginitis- Primary Well woman exam with routine gynecological exam Routine gynecological examination Breast cancer screening by mammogram Postmenopausal state Asymptomatic postmenopausal status (age-related) (natural) documented in this encounter [facility] History general Narrative - Reported Note Date & Type Note Facility History general Narrative - Reported Type Surgical History C section x3 Surgical History hysterectomy Surgical History gall bladder Hospitalization History see above [facility] Other Summary Purpose Family History No Family [...] section and content) DATE CREATED AUTHOR 07/12/2019 [facility] DATE CREATED AUTHOR AUTHOR'S ORGANIZ ATION 01/16/2022 [facility] DATE CREATED AUTHOR AUTHOR'S ORGANIZ ATION 10/03/2022 [facility]ical Specialist DATE CREATED AUTHOR AUTHOR'S ORGANIZ ATION 04/09/2023 [facility] DATE CREATED AUTHOR AUTHOR'S ORGANIZ ATION 01/28/2025 [facility] DATE CREATED AUTHOR AUTHOR'S ORGANIZ ATION 03/07/2025 [facility] d[facility] Specialists EPIC REASON FOR VISIT (unrecogniz ed section and content) Reason Comments Pain Reason Comments Well Women Visit Care Teams (unrecognized sec tion and content) [employer] Relationship Specialty Start Date End Date Paddy Stone MD [address] [place] [address] PCP - General Family Medicine 10/05/24 [employer] Relationship Specialty Start Date End Date Paddy Stone MD [address] [place] [address] PCP - General Family Medicine 10/05/24 [employer] Relationship Specialty Start Date End Date Paddy Stone MD [address] [place] [address] PCP - General Family Medicine 10/05/24 [employer] Relationship Specialty Start Date End Date Paddy Stone MD [address] [place] [address] PCP - General Family Medicine 10/05/24 FOR [...] BE BASED ON THE PRIMARY CLINICAL RECORDS. [employer] [facility]. provides no warranty or guarantee of the accuracy or completeness of information in this document.
== END 2025-07-24 09:53 | disposition home or self-care (01) ==
LOC: MAMMO 09:52
PROVIDERS: PCP Family Medicine; Visit Provider Family Medicine
DX: Z12.31 Encounter for screening mammogram for malignant neoplasm of breast (principal)
CPT/HCPCS: 77063; 77067

== ENCOUNTER 2025-09-07 09:23 | Outpatient (OUT) | payer OTHER, SELFPAY ==
--- OUTSIDE RECORDS SUMMARY | 2025-09-07 09:30 | XMS_ITS | CCD ---
Author Organization [facility] Care Team Providers Care Lockstitch Cup Setter Name Role Phone UNKNOWN, PROVIDER Admitting Unavailable UNKNOWN, PROVIDER Attending Unavailable PADDY STONE Referring Unavailable PADDY STONE Primary Care Unavailable Jose A Petersen Unavailable ARDEN ., DR THOMASON Primary Care Unavailable HOY ., DR THOMASON Consulting Unavailable HOY ., DR THOMASON Attending Unavailable HOY ., DR THOMASON Admitting Unavailable [place], DR WALDO Perkins Consulting Unavailable HOY ., [...] Unavailable Paddy Stone MD Primary Care Provider KIANA LEMONS Referring Unavailable KIANA LEMONS Attending Unavailable KIANA LEMONS Referring Unavailable ANDREW STAHL Attending Unavailable Allergies Allergy Classification Reported Allergen(s) Allergy Type Date of Onset Reaction(s) Facility (3 sources) Acetaminophen / oxyCODONE Drug Allergy 10-19-20 14 [facility] (1 source) Sulfamethoxazole / Trimethoprim Drug Allergy 05-17-20 19 [facility] (2 sources) Acetaminophen / oxyCODONE Drug Allergy Unknown [facility] Other (4 sources) Latex Propensity to adverse reactions Unknown [facility] [employer] Other (2 sources) Sulfacetamide / Sulfur Drug Allergy Unknown [facility] Other (8 sources) Sulfamethoxazole / Trimethoprim Drug Allergy 10-20-20 24 Unknown [facility] Other (2 sources) Codeine Drug Allergy 10-12-20 14 [facility] (2 sources) Latex Drug allergy (disorder) 10-25-20 14 [facility] (1 source) Sulfamethoxazole / Trimethoprim Drug Allergy 01-08-20 17 [facility] (1 source) Sulfonamides (Antibiotic) Drug allergy (disorder) 01-08-20 17 [facility] (6 sources) Acetaminophen Drug Allergy 02-08-20 20 [facility] (6 sources) Codeine Drug Allergy 10-20-20 24 [facility] (7 sources) Estrogens; Translations: [estrogens] Drug Allergy 10-20-20 24 Shortness of breath [facility] (6 sources) Latex Allergy to substance 05-16-20 09 Itching [facility] (6 sources) oxyCODONE Drug Allergy 02-08-20 20 [facility] (6 sources) Sulfamethoxazole Allergy to substance 02-08-20 [facility] (6 sources) Trimethoprim Drug Allergy 02-08-20 20 [facility] Medications Current Medications Medication Drug Class(es) [...] GDLNon AGE GDLN ACOG TESTING Note . [facility] Comment on above: TESTS RESULT FLAG UN ITS REF RANGE LAB Clinician Provided Cytology Information Source.............Vagina No. of containers..01 ThinPrep Vial Age Algo ACOG Yana... FLAG LEGEND: L-Low Normal,H-High Normal,LL-Alert Low,HH-Alert High <-Panic Low,>-Panic High,A-Abnormal,AA-Critical Abnormal Performed at: 01 =[address] [id number] Lennie Ballesteros MD, HPV APTIMA Negative Negative [facility] Comment on above: This nucleic acid am plification test detects fourteen high- risk HPV types (16,18,31,33,35,39,45,51,52,56,58,59,66,68) without differentiation. Performed at: =[address] [id number] [employer]: Lennie Ballesteros MD, Phone: [phone] Performed at: [address] [id number] [employer]: Lennie Ballesteros MD, Phone: [phone] IGP, APTIMA HPV, RFX 16/18,45 Note . [facility] Comment on above: TESTS RESULT FLAG UN ITS REF RANGE LAB DIAGNOSIS: 02 NEGATIVE FOR INTRAEPITHELIAL LESION OR MALIGNANCY. Specimen adequacy: 02 Satisfactory for evaluation. No endocervical cells are present. This is consistent with a history of hysterectomy. Performed by: 02 Ramya Estrella Family Coach (ASCP) . 02 Note: Note 02 The [...] Low,>-Panic High,A-Abnormal,AA-Critical Abnormal Performed at: [address] [facility] [address] [address] Lennie Ballesteros MD, SP[facility]ULA[facility] [place] CREATININEon 04-02-2023 Creatinine [Mass/Vol] 0.80 mg/dL Normal 0.55-1.02 [facility] Comment on above: Performed By: #### L IPID, CMP, T7, TSH #### [facility] [address] [address] [address] Nga Ribeiro EGFR-AF BAHAMIAN >60 Normal >=60 [facility] Comment on above: Performed By: #### L IPID, CMP, T7, TSH #### [facility] [place] [facility] [address] [address] [address] Nga Ribeiro EGFR-NON AF BAHAMIAN >60 Normal >=60 [facility] Comment on above: Performed By: #### L IPID, CMP, T7, TSH #### [facility] [place] [facility] [address] [address] [address] ABD/PELV W CONon [...] Normal [facility] OCC BLD IMMUNO SCREENon OCCULT BLOOD Negative Normal NEGATIVE [facility] Comment on above: Performed By: #### O BSCRN #### [facility] [place] [facility] [address] [place] [address] Dr. Nga Ribeiro INSULINon 10-31-2022 Insulin 8.8 uIU/mL Normal 2.6-24.9 [facility] Comment on above: Performed By: #### L IPID, CMP, T7, TSH #### [facility] [place] [facility] [address] [place] [address] Dr. Nga Ribeiro CBC AUTO DIFFon 10-30-2022 BASO # 0.1 103/ul Normal 0.0-0.1 [facility] Comment on above: Performed By: #### L IPID, CMP, T7, TSH #### [facility] [place] [facility] [address] [place] [address] Dr. Nga Ribeiro Basophils/100 WBC (Bld) 1.4 % Normal 0.2-2.0 [facility] Comment on above: Performed By: #### L IPID, CMP, T7, TSH #### [facility] [place] [facility] [address] [place] [address] Dr. Nga Ribeiro EO # 0.3 103/ul Normal 0.0-0.7 [facility] Comment on above: Performed By: #### L IPID, CMP, T7, TSH #### [facility] [place] [facility] [address] [place] [address] Dr. Nga Ribeiro Eosinophils/100 WBC (Bld) 6.3 % Normal 0.9-7.0 [facility] Comment on above: Performed By: #### L IPID, CMP, T7, TSH #### [facility] [address] [place] [address] Dr. Nga Ribeiro Erythrocyte distribution width (RBC) [Ratio] 12.7 % Normal 11.0-15.0 [facility] Comment on above: Performed By: #### L IPID, CMP, T7, TSH #### [facility] [place] [facility] [address] [place] [address] Dr. Nga Ribeiro Hematocrit (Bld) [Volume fraction] 40.4 % Normal 36.0-48.0 [facility] Comment on above: Performed By: #### L IPID, CMP, T7, TSH #### [facility] [place] [facility] [address] [place] [address] Dr. Nga Ribeiro Hemoglobin (Bld) [Mass/Vol] 13.8 g/dL Normal 12.0-16.0 [facility] Comment on above: Performed By: #### L IPID, CMP, T7, TSH #### [facility] [place] [facility] [address] [place] [address] Dr. Nga Ribeiro IG # 0.01 10e3/ul Normal 0.00-0.03 [facility] Comment on above: Performed By: #### L IPID, CMP, T7, TSH #### [facility] [place] [facility] [address] [place] [address] Dr. Nga Ribeiro IG % 0.2 % Normal 0.0-0.5 [facility] Comment on above: Performed By: #### L IPID, CMP, T7, TSH #### [facility] [place] [facility] [address] [place] [address] Dr. Nga Ribeiro LYMPH # 1.9 103/ul Normal 1.2-3.8 [facility] Comment on above: Performed By: #### L IPID, CMP, T7, TSH #### [facility] [place] [facility] [address] [address] [address] Nga Ribeiro Lymphocytes/100 WBC (Bld) 46.4 % Normal 20.5-60.0 [facility] Comment on above: Performed By: #### L IPID, CMP, T7, TSH #### [facility] [place] [facility] [address] [place] [address] Dr. Nga Ribeiro MANUAL DIFF REQ NO Normal [facility] Comment on above: Performed By: #### L IPID, CMP, T7, TSH #### [facility] [place] [facility] [address] [place] [address] Dr. Nga Ribeiro MCH (RBC) [Entitic mass] 30.6 pg Normal 26.7-34.0 [facility] Comment on above: Performed By: #### L IPID, CMP, T7, TSH #### [facility] [place] [facility] [address] [place] [address] Dr. Nga Ribeiro MCHC (RBC) [Mass/Vol] 34.2 g/dL Normal 29.9-35.2 [facility] Comment on above: Performed By: #### L IPID, CMP, T7, TSH #### [facility] [place] [facility] [address] [place] [address] Dr. Nga Ribeiro MCV (RBC) [Entitic vol] 89.6 fL Normal 81.0-99.0 [facility] Comment on above: Performed By: #### L IPID, CMP, T7, TSH #### [facility] [place] [facility] [address] [place] [address] Dr. Nga Ribeiro MONO # 0.4 103/ul Normal 0.3-0.8 [facility] Comment on above: Performed By: #### L IPID, CMP, T7, TSH #### [facility] [place] [facility] [address] [place] [address] Dr. Nga Ribeiro Monocytes/100 WBC (Bld) 9.1 % Normal 1.7-12.0 [facility] Comment on above: Performed By: #### L IPID, CMP, T7, TSH #### [facility] [place] [facility] [address] [address] [address] Nga Ribeiro NEUT # 1.5 103/ul Normal 1.4-6.5 [facility] Comment on above: Performed By: #### L IPID, CMP, T7, TSH #### [facility] [place] [facility] [address] [address] [address] Nga Ribeiro Neutrophils/100 WBC (Bld) 36.6 % Critically low 43.0-75.0 [facility] Comment on above: Performed By: #### L IPID, CMP, T7, TSH #### [facility] [place] [facility] [address] [address] [address] Nga Ribeiro Platelet mean volume (Bld) [Entitic vol] 9.2 fL Critically low 9.5-13.5 [facility] Comment on above: Performed By: #### L IPID, CMP, T7, TSH #### [facility] [place] [facility] [address] [address] [address] Nga Ribeiro PLT 194 103/ul Normal 150-450 [facility] Comment on above: Performed By: #### L IPID, CMP, T7, TSH #### [facility] [place] [facility] [address] [address] [address] Nga Ribeiro RBC 4.51 106/ul Normal 4.20-5.40 [facility] Comment on above: Performed By: #### L IPID, CMP, T7, TSH #### [facility] [place] [facility] [address] [address] [address] Nga Ribeiro WBC 4.2 103/ul Normal 4.0-11.0 [facility] Comment on above: Performed By: #### L IPID, CMP, T7, TSH #### [facility] [place] [facility] [address] [place] [address] Dr. Nga Ribeiro FREE THYROXINE INDEX T7on FTI 2.66 Normal 1.30-4.50 [facility] Comment on above: Performed By: #### L IPID, CMP, T7, TSH #### [facility] [place] [facility] [address] [place] [address] Dr. Nga Ribeior T3U 36.0 % Normal 30.0-39.0 [facility] Comment on above: Performed By: #### L IPID, CMP, T7, TSH #### [facility] [place] [facility] [address] [address] [address] Nga Ribeiro T4 [Mass/Vol] 7.40 ug/dL Normal 4.80-13.90 [facility] Comment on above: Performed By: #### L IPID, CMP, T7, TSH #### [facility] [place] [facility] [address] [address] [address] Nga Ribeiro GLYCOHEMOGLOBIN A1Con 2021 ADA RECOMMENDATION SEE BELOW Normal [facility] Comment on above: Result Comment: ADA RECOMMENDED LIMIT 4.0 - 6.0 ADA THERAPEUTIC TARGET < 7.0 ACTION SUGGESTED > 7.0 Performed By: #### A 1C #### [facility] [place] [facility] [address] [place] [address] Dr. Nga Ribeiro Glucose [Mass/Vol] 94 mg/dL Normal [facility] Comment on above: Performed By: #### A 1C #### [facility] [place] [facility] [address] [address] [address] Nga Ribeiro HbA1c (Bld) [Mass fraction] 4.9 % Normal 4.5-6.2 [facility] Comment on above: Performed By: #### A 1C #### [facility] [place] [facility] [address] [place] [address] Dr. Nga Ribeiro IRONon 10-30-2022 Iron [Mass/Vol] 119.0 ug/dL Normal 50.0-170.0 [facility] Comment on above: Performed By: #### I CHARISMA #### [facility] [place] [facility] [address] [address] [address] Nga Ribeiro LIPID PROFILEon 10-30-2022 CHOL-HDL RATIO NORM SEE BELOW Normal [facility] Comment on above: Result Comment: 3.3 - 4.4 LOW RISK 4.4 - 7.1 AVERAGE RISK 7.1 - 11.0 MODERATE RISK >11.0 HIGH RISK Performed By: #### L IPID, CMP, T7, TSH #### [facility] [place] [facility] [address] [address] [address] Nga Ribeiro Cholesterol [Mass/Vol] 201 mg/dL Critically high <=200 [facility] Comment on above: Performed By: #### L IPID, CMP, T7, TSH #### [facility] [place] [facility] [address] [address] [address] Nga Ribeiro Cholesterol in HDL [Mass/Vol] 78 mg/dL Critically high 40-60 [facility] Comment on above: Performed By: #### L IPID, CMP, T7, TSH #### [facility] [place] [facility] [address] [address] [address] Nga Ribeiro Cholesterol in LDL [Mass/Vol] 108.8 mg/dL Normal [facility] Comment on above: Performed By: #### L IPID, CMP, T7, TSH #### [facility] [place] [facility] [address] [address] [address] Nga Ribeiro Cholesterol.total/Ch olesterol in HDL [Mass ratio] 2.6 {ratio} Normal [facility] Comment on above: Performed By: #### L IPID, CMP, T7, TSH #### [facility] [place] [facility] [address] [address] [address] Nga Ribeiro HDL NORMAL > or = 60 mg/dl - LO W CARDIOVASCULAR RISK <40 mg/dl - HIGH CARDIOVASCULAR RISK Normal [facility] Comment on above: Performed By: #### L IPID, CMP, T7, TSH #### [facility] [place] [facility] [address] [address] [address] Nga Ribeiro LDL CALC NORMAL SEE BELOW Normal [facility] Comment on above: Result Comment: <100 mg/dl OPTIMAL 100 - 129 mg/dl NEAR OR ABOVE OPTIMAL 130 - 159 mg/dl BORDERLINE HIGH 160 - 189 mg/dl HIGH >190 mg/dl VERY HIGH Performed By: #### L IPID, CMP, T7, TSH #### [facility] [place] [facility] [address] [address] [address] Nga Ribeiro Triglyceride [Mass/Vol] 71 mg/dL Normal <=150 [facility] [place] Comment on above: Performed By: #### L IPID, CMP, T7, TSH #### [facility] [place] [facility] [address] [address] [address] Nga Ribeiro VLDL CALC 14.2 mg/dL Normal [facility] Comment on above: Performed By: #### L IPID, CMP, T7, TSH #### [facility] [place] [facility] [address] [address] [address] Nga Ribeiro PROF 14(COMP METB)on 022 Albumin [Mass/Vol] 3.8 g/dL Normal 3.4-5.0 [facility] Comment on above: Performed By: #### L IPID, CMP, T7, TSH #### [facility] [place] [facility] [address] [address] [address] Nga Ribeiro Albumin/Globulin [Mass ratio] 1.1 {ratio} Normal [facility] Comment on above: Performed By: #### L IPID, CMP, T7, TSH #### [facility] [place] [facility] [address] [address] [address] Nga Ribeiro ALP [Catalytic activity/Vol] 91 U/L Normal 46-116 [facility] Comment on above: Performed By: #### L IPID, CMP, T7, TSH #### [facility] [place] [facility] [address] [address] [address] Nga Ribeiro ALT [Catalytic activity/Vol] 19 U/L Normal 14-59 [facility] Comment on above: Performed By: #### L IPID, CMP, T7, TSH #### [facility] [place] [facility] [address] [address] [address] Nga Ribeiro Anion gap [Moles/Vol] 9.2 mmol/L Normal [facility] Comment on above: Performed By: #### L IPID, CMP, T7, TSH #### [facility] [place] [facility] [address] [address] [address] Nga Ribeiro AST [Catalytic activity/Vol] 18 U/L Normal 15-37 [facility] Comment on above: Performed By: #### L IPID, CMP, T7, TSH #### [facility] [place] [facility] [address] [address] [address] Nga Ribeiro Bilirubin [Mass/Vol] 0.5 mg/dL Normal 0.2-1.0 [facility] Comment on above: Performed By: #### L IPID, CMP, T7, TSH #### [facility] [place] [facility] [address] [place] [address] Dr. Nga Ribeiro Calcium [Mass/Vol] 9.5 mg/dL Normal 8.5-10.1 [facility] Comment on above: Performed By: #### L IPID, CMP, T7, TSH #### [facility] [place] [facility] [address] [address] [address] Nga Ribeiro Chloride [Moles/Vol] 105 mmol/L Normal 98-107 [facility] [place] Comment on above: Performed By: #### L IPID, CMP, T7, TSH #### [facility] [place] [facility] [address] [place] [address] Dr. Nga Ribeiro CO2 [Moles/Vol] 29.5 mmol/L Normal 21.0-32.0 [facility] Comment on above: Performed By: #### L IPID, CMP, T7, TSH #### [facility] [place] [facility] [address] [place] [address] Dr. Nga Ribeiro Creatinine [Mass/Vol] 0.68 mg/dL Normal 0.55-1.02 [facility] Comment on above: Performed By: #### L IPID, CMP, T7, TSH #### [facility] [place] [facility] [address] [place] [address] Dr. Nga Ribeiro EGFR-AF BAHAMIAN >60 Normal >=60 [facility] Comment on above: Performed By: #### L IPID, CMP, T7, TSH #### [facility] [place] [facility] [address] [place] [address] Dr. Nga Ribeiro EGFR-NON AF BAHAMIAN >60 Normal >=60 [facility] Comment on above: Performed By: #### L IPID, CMP, T7, TSH #### [facility] [place] [facility] [address] [place] [address] Dr. Nga Ribeiro Globulin (S) [Mass/Vol] 3.6 g/dL Normal [facility] [place] Comment on above: Performed By: #### L IPID, CMP, T7, TSH #### [facility] [place] [facility] [address] [address] [address] Nga Ribeiro Glucose [Mass/Vol] 100 mg/dL Normal 74-[address] [facility] Comment on above: Performed By: #### L IPID, CMP, T7, TSH #### [facility] [place] [facility] [address] [address] [address] Nga Ribeiro Potassium [Moles/Vol] 4.7 mmol/L Normal 3.5-5.1 [facility] Comment on above: Performed By: #### L IPID, CMP, T7, TSH #### [facility] [place] [facility] [address] [place] [address] Dr. Nga Ribeiro Protein [Mass/Vol] 7.4 g/dL Normal 6.4-8.[address] [facility] Comment on above: Performed By: #### L IPID, CMP, T7, TSH #### [facility] [place] [facility] [address] [place] [address] Dr. Nga Ribeiro Sodium [Moles/Vol] 139 mmol/L Normal 136-[address] [facility] Comment on above: Performed By: #### L IPID, CMP, T7, TSH #### [facility] [place] [facility] [address] [address] [address] Nga Ribeiro Urea nitrogen [Mass/Vol] 19.0 mg/dL Critically high 7.0-18.0 [facility] Comment on above: Performed By: #### L IPID, CMP, T7, TSH #### [facility] [place] [facility] [address] [place] [address] Dr. Nga Ribeiro Urea nitrogen/Creatinine [Mass ratio] 27.9 mg/mg Normal [facility] Comment on above: Performed By: #### L IPID, CMP, T7, TSH #### [facility] [address] [place] [address] Dr. Nga Ribeiro TSHon 10-30-2022 TSH 0.871 uIU/mL Normal 0.358-3.740 [facility] Comment on above: Performed By: #### L IPID, CMP, T7, TSH #### [facility] [place] [facility] [address] [place] [address] Dr. Nga Ribeiro Covid-19 PCR (CVDTB)on 10-01 SARS-CoV-2 (COVID-19) RNA VALENTINA+probe Ql (Unsp spec) Not detected Normal NOT DETECTED [facility] Comment on above: Result Comment: When diagnostic [...] for this test is supported by the [place] of Health and Human Service's declaration that [...] used). Performed By: #### C VDTBH #### [facility] [place] [facility] [address] [address] [address] Nga Ribeiro INFLUENZA A AND B AGon 10-22 INFLUANEGH SEE BELOW Normal [facility] Comment on above: Result Comment: Nega tive for Flu A protein angiten. Infection due to Flu A cannot be ruled out. Flu A angiten in the sample may be below the detection limit of the test. Performed By: #### L IPID, CMP, T7, TSH #### [facility] [place] [facility] [address] [address] [address] Nga Ribeiro INFLUBNEG SEE BELOW Normal [facility] [place] Comment on above: Result Comment: Nega tive for Flu B protein antigen. Infection due to Flu B cannot be ruled out. Flu B antigen in the sample may be below the detection limit of the test. Performed By: #### L IPID, CMP, T7, TSH #### [facility] [place] [facility] [address] [address] [address] Nga Ribeiro INFLUENZA A AG Negative Normal NEGATIVE SEE COMMENT [facility] [place] Comment on above: Performed By: #### L IPID, CMP, T7, TSH #### [facility] [place] [facility] [address] [place], [place] [address] Dr. Nga Ribeiro INFLUENZA B AG Negative Normal NEGATIVE SEE COMMENT [facility] Comment on above: Performed By: #### L IPID, CMP, T7, TSH #### [facility] [place] [facility] [address] [place], [place] [address] Dr. Nga Ribeiro INTERNAL CONTROLS Within Normal Limits Normal Wi thin Normal Limits [facility] [place] Comment on above: Performed By: #### L IPID, CMP, T7, TSH #### [facility] [place] [facility] [address] [place], [place] [address] Dr. 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 Admission #: [id number] Family : Order #: [id number] CLICK HERE TO VIEW EXAM RADIOLOGY REPORT [...] Treatments Excision Family Cancers None LOCATION: [facility] [place] BREAST COMPOSITION: Scattered areas fibroglandular density. FINDINGS: [...] Nixon M.D. on 06/16/2022 at 13:28 Normal [facility] PAP ACOG PANEL 2: 31 to 66on 05-30-2022 . . Normal [facility] Comment on above: Result Comment: Perf ormed at: [facility] Performed By: #### L IPID, CMP, T7, TSH #### [facility] [address] [address] [address] Nga Ribeiro Age Gdln ACOG Testing 30-65 Normal [facility] Comment on above: Performed By: #### L IPID, CMP, T7, TSH #### [facility] [address] [address] [address] Nga Ribeiro DIAGNOSIS: Comment Normal [facility] Comment on above: Result Comment: UNSA TISFACTORY FOR EVALUATION. Performed at: WB Performed By: #### L IPID, CMP, T7, TSH #### [facility] [id number] Nga Ribeiro HPV Aptima Negative Normal Negative [facility] Comment on above: Result Comment: This nucleic acid amplification test detects fourteen high-risk HPV types (16,18,31,33,35,39,45,51,52,56,58,59,66,68) without differentiation. Performed at: =G Performed By: #### L IPID, CMP, T7, TSH #### [facility] [address] [address] [address] Nga Ribeiro Methodology: Comment Normal [facility] Comment on above: Result Comment: This liquid based ThinPrep(R) pap test was screened with the use of an image guided system. Performed at: WB Performed By: #### L IPID, CMP, T7, TSH #### [facility] [address] [address] [address] Nga Ribeiro Note: Comment Normal [facility] Comment on above: Result Comment: [...] TSH #### [facility] [address] [address] [address] Nga Ribeiro Performed by: Comment Normal [facility] Comment on above: Result Comment: Kolton Carpio, Family Coach (ASCP) Performed at: WB Performed By: #### L IPID, CMP, T7, TSH #### [facility] [address] [address] [address] Nga Ribeiro QC reviewed by: Comment Normal [facility] Comment on above: Result Comment: Adore Sloan, Supervisory Family Coach (ASCP) Performed at: WB Performed By: #### L IPID, CMP, T7, TSH #### [facility] [id number] Nga Ribeiro Recommendation: Comment Normal [facility] Comment on above: Result Comment: Sugg est follow up as clinically appropriate. Performed at: WB Performed By: #### L IPID, CMP, T7, TSH #### [facility] [address] [address] [address] Nga Ribeiro Specimen adequacy: Comment Normal [facility] Comment on above: Result Comment: Spec imen processed and examined but unsatisfactory for evaluation of epithelial abnormality because of insufficient cellularity. Performed at: WB Performed By: #### L IPID, CMP, T7, TSH #### [facility] [address] [address] [address] Nga Ribeiro MR knee RT wo conon 08-30-20 MR knee RT wo con [facility] Main [place] [address] [place] [address] MRI Report Signed Patient: Cony Matos MR#: [id number] 19 : 1960 Acct:[id number] Age/Sex: 60 / F ADM Date: 08/30/21 Loc: [facility] Room: Type: [facility] CLI Attending Dr: Jose A Petersen [...] Jamarcus Prado M.D.08/30/2021 11:36 AM Dictation Location: [place] [address] Transcribed By: [facility] 08/30/21 1136 Dictated By: Jamarcus Prado II, MD 08/30/21 1120 Signed By: 08/30/21 1136 Normal [facility] XR knee RT 2Von 08-22-2021 XR knee RT 2V [facility] Main [place] [address] [place] [address] XRay Report Signed Patient: Cony Matos MR#: [id number] 19 : 1960 Acct:[id number] Age/Sex: 60 / F ADM Date: 08/22/21 Loc: [facility] Room: Type: [facility] Attending Dr: Jose A Petersen MD [...] Jamarcus Prado M.D.08/22/2021 1:26 PM Dictation Location: [place] [address] Transcribed By: BIJAN 08/22/21 1326 Dictated By: Jamarcus Prado II, MD 08/22/21 1325 Signed By: 08/22/21 1326 [facility] Lab Reporton 05-17-2019 Cardiovascular Lab Report [facility] MR #: [id number] Department of Physician: Rico James M.D. Division of Service Date: 05/17/2019 Cardiology Birthdate: 1960 Adult Cardiovascular Room #: [place] [address] Cardiovascular Laboratory Report INDICATION: The patient is [...] signed informed consent. She was brought to pathology laboratory director in a fasting state. The right neck area was prepped and draped in usual fashion. Using ultrasound guidance and micropuncture technique, the right internal jugular vein was accessed. A 6-Australian x 11 cm sheath was placed. A 6-Australian Irvin catheter was used for right heart catheterization with measurement of pressures and calculation of cardiac output using the estimated Sherman method. Irvin catheter was removed. Jamar's test was favorable on the right. Access in the right radial artery was obtained using micropuncture technique, a 5-Australian 11 cm Hydrophilic sheath was advanced. Verapamil was given through the sheath and heparin was administered intravenously. Bilateral selective coronary angiography was then performed using a 6-Australian JL5 diagnostic catheter. This catheter was removed. [...] James M.D. Date Trans: 05/17/2019 01:54 P/timoteo [id number] cc: Paddy Stone M.D. [address] [place] [address] Normal [facility] Vital Signs Date Time Vital Sign Value Performing Clinician Facility 03-06-2025 14:59-0400 Body mass index (BMI) [Ratio] 27.94 kg/m2 Andrew Stahl DO Work Phone: [facility] 03-06-2025 14:59-0400 Body weight 73.85 kg Andrew Maribeth DO Work Phone: [facility] 03-06-2025 14:59-0400 Diastolic blood pressure 80 mm[Hg] Andrew Maribeth DO Work Phone: [facility] 03-06-2025 14:59-0400 Systolic blood pressure 120 mm[Hg] Andrew Maribeth DO Work Phone: [facility] 10-20-2024 14:45-0500 Body height 162.6 cm Kiana [employer] Work Phone: [facility] 10-20-2024 14:45-0500 Body mass index (BMI) [Ratio] 28.84 kg/m2 Kiana [employer] Work Phone: [facility] 10-20-2024 14:45-0500 Body temperature 97.11 [degF] Kiana [employer] Work Phone: [facility] 10-20-2024 14:45-0500 Body weight 76.2 kg Kiana [employer] Work Phone: [facility] 08-22-2021 10:00-0400 Body height 167.64 cm Jose A Petersen Other [facility] Other 08-22-2021 10:00-0400 Body mass index (BMI) [Ratio] 25.01 kg/m2 Jose A Olexa Other [facility] Other 08-22-2021 10:00-0400 Body weight 70.31 kg Jose A Olexa Other [facility] Other Encounters Encounter Date Encounter Type Care Provider Facility Start: 03-06-2025 End: 03-06-2025 Patient encounter procedure Andrew Maribeth DO Work Phone: [facility] [employer] Work Phone: Start: 03-06-2025 End: 03-06-2025 Periodic [...] [facility] External Department Unsolicited Start: 01-26-2025 ambulatory Facility:[facility] Start: 10-20-2024 End: 10-20-2024 Patient encounter [...] . [facility] Start: 11-03-2022 End: 11-03-[address] PADDY [...] End: 10-03-2021 ambulatory Jose A Petersen Other [facility] Other Start: 10-03-2021 Telephone encounter Jose A Petersen [facility] Start: 08-22-2021 Office outpatient ne w 45 minutes Jose A Petersen [facility] Start: 05-17-2019 End: 05-18-2019 Patient encounter procedure PROVIDER UNKNOWN Facility:[facility] Procedures Date Procedure Procedure Detail Performing Clinician [...] 07-31-2024 Influenza vaccination Influenza Vacc ine (#1) [facility] Start: 2001 Screening for malignant neoplasm of breast Mammogram [facility] Start: 1991 Screening for malignant neoplasm of cervix [facility] Start: 1982 Screening for malignant neoplasm of cervix Pap Smear [facility] Start: 1961 Screening for malignant neoplasm of colon [facility] THIN PREP TIS PAP AN D HR HPV DNA THIN PREP TIS PAP AND HR HPV DNA Pathology and Cytology Routine Well woman exam with routine gynecological exam Ordered: 03/06/2025 [facility] Comment on above: Ordered: 03/06/2025 XR Hip - right 3 Views XR hip ri ght 2 or 3 views Imaging Routine Left hip pain 10/20/2024 2:49 PM EST [facility] Work Phone: Payers Date Payer Category Payer Private Health Insurance [facility] Member Subscriber Plan / Payer (Effective 2015-Present) Name: Cony Matos Relation to Subscriber: Spouse Name: SHAWNAJOHNATHAN Date of : 1957 Address: [address] [place] [address] Payer ID: [id number] (NAIC) Type: Not on file Address: [address] [place] [id number] 1960 Unknown [id number] [id number] .2.647 1960 Unknown [id number] 2.16.840.1.453044.3.579 .2.593 1960 Unknown [id number] 2.16.840.1.745880.3.579 .2.593 1960 Unknown [id number] 2.16.840.1.923731.3.579 .2.593 1960 Unknown [id number] 2.16.840.1.554532.3.579 .2.593 1960 Unknown [id number] 2.16.840.1.814084.3.579 .2.593 1961 Unknown [id number] 2.16.840.1.671479.3.579 .2.593 1961 Unknown [id number] 2.16.840.1.211685.3.579 .2.593 1961 Unknown [id number] 2.16.840.1.983421.3.579 .2.593 1960 Unknown [id number] 2.16.840.1.462526.3.579 .2.727 1960 Unknown [id number] 2.16.840.1.448714.3.579 .2.1259 1960 Unknown [id number] 2.16.840.1.286116.3.579 .2.1259 1961 Unknown [id number] 2.16.840.1.756145.3.579 .2.1259 1958 Self-pay 1958 Unknown [id number] Social History Date Type Detail Facility Start: 10-20-2024 Sex Assigned At N [facility] [employer] Other Start: 10-20-2024 Tobacco smoking stat [facility] Never smoked tobacco [facility] Start: 10-20-2024 Tobacco use and exposure Smokeless tobacco non-user [facility] Start: 10-20-2024 End: 03-06-2025 Alcoholic beverage intake Ex-drinker (finding) [facility] Start: 10-20-2024 History of Social function [facility] Start: 1960 Sex assigned at Not on file [facility] Start: 06-23-2024 Gender identity Identifies as female gender (finding) [facility] History of Present illness Narrative 03-06-2025 [...] nursing note reviewed. Exam conducted with a political science research assistant present. Vitals: Estimated body mass index is [...] AP pelvis, right hip taken in the [place] office saved to the permanent record shows [...] be a big aggravator. She also sits Cymro-style quite often which may cause some pain in that area. We discussed conservative management. She would like to move forward with hip arthrogram. We discussed the perioperative course, time, healing, commitment and expectations. We discussed shelter definitive role of total hip replacement. Indications [...] of pain and plan potential surgical treatment. [facility] Other Evaluation note Note Date & Type Note Facility Evaluation note No Information [employer] Other Evaluation note Note Date & Type Note Facility Evaluation note Diagnosis Left hip pain- Primary Pain in joint, pelvic region and thigh documented in this encounter [facility] Evaluation note Note Date & Type Note Facility Evaluation note Diagnosis Postmenopausal atrophic vaginitis- Primary Well woman exam with routine gynecological exam Routine gynecological examination Breast cancer screening by mammogram Postmenopausal state Asymptomatic postmenopausal status (age-related) (natural) documented in this encounter [facility] History general Narrative - Reported Note Date & Type Note Facility History general Narrative - Reported Type Surgical History C section x3 Surgical History hysterectomy Surgical History gall bladder Hospitalization History see above [facility] Other Summary Purpose Family History No Family [...] section and content) DATE CREATED AUTHOR 07/12/2019 [facility] DATE CREATED AUTHOR AUTHOR'S ORGANIZ ATION 01/16/2022 [facility] DATE CREATED AUTHOR AUTHOR'S ORGANIZ ATION 10/03/2022 [facility] dical Specialist DATE CREATED AUTHOR AUTHOR'S ORGANIZ ATION 04/09/2023 [facility] DATE CREATED AUTHOR AUTHOR'S ORGANIZ ATION 01/28/2025 Luis Sharma [facility] DATE CREATED AUTHOR AUTHOR'S ORGANIZ ATION 03/07/2025 [facility] dical Specialists EPIC REASON FOR VISIT (unrecogniz ed section and content) Reason Comments Pain Reason Comments Well Women Visit Care Teams (unrecognized sec tion and content) Lockstitch Cup Setter Relationship Specialty Start Date End Date Paddy Stone MD [address] [place] [address] PCP - General Family Medicine 10/05/24 Lockstitch Cup Setter Relationship Specialty Start Date End Date Paddy Stone MD [address] [place] [address] PCP - General Family Medicine 10/05/24 Lockstitch Cup Setter Relationship Specialty Start Date End Date Paddy Stone MD [address] [place] [address] PCP - General Family Medicine 10/05/24 Lockstitch Cup Setter Relationship Specialty Start Date End Date Paddy Stone MD [address] [place] [address] PCP - General Family Medicine 10/05/24 FOR [...] BE BASED ON THE PRIMARY CLINICAL RECORDS. [email or web address] [facility]. provides no warranty or guarantee of the accuracy or completeness of information in this document.
[2025-09-07 10:01] LABS: Hematocrit 41.2 % (36.0-48.0); Hemoglobin 13.7 g/dL (12.0-16.0); Immature Granulocytes Abs Auto 0.00 10^3/uL (0.00-0.03); Immature Granulocytes Pct Auto 0.0 % (0.0-0.5); Lymphocytes Absolute Auto 1.2 10^3/uL (1.2-3.8); Mean Corpuscular HGB Conc 33.3 g/dL (29.9-35.2); Mean Corpuscular Hemoglobin 30.0 pg (26.7-34.0); Mean Corpuscular Volume 90.4 fL (81.0-99.0); Platelet Count 191 10^3/uL (150-450); Red Blood Count 4.56 10^6/uL (4.20-5.40); White Blood Count 4.5 10^3/uL (4.0-11.0)
[2025-09-07 10:13] LABS: Alanine Aminotransferase 26 U/L (14-59); Albumin Globulin Ratio 0.9; Albumin Level 3.7 g/dL (3.4-5.0); Alkaline Phosphatase 95 U/L (46-116); Anion Gap 14.0; Aspartate Amino Transferase 23 U/L (15-37); Blood Urea Nitrogen 16.0 mg/dL (7.0-18.0); Calcium 8.9 mg/dL (8.5-10.1); Carbon Dioxide 27.4 mmol/L (21.0-32.0); Chloride 102 mmol/L (98-107); Estimated GFR (African America >60 (>=60 mL/min/1.73m^2); Estimated GFR (Non-African Ame >60 (>=60 mL/min/1.73m^2); Globulin 4.2 g/dL; Glucose 88 mg/dL (74-106); Potassium 4.4 mmol/L (3.5-5.1); Sodium 139 mmol/L (136-145); Total Protein 7.9 g/dL (6.4-8.2); Uric Acid 3.0 mg/dL (2.6-6.0)
--- NOTE | 2025-09-07 13:45 | US_ITS ---
The [place] [id number] Patient Name: JOCELYNE MATOS MRN: [id number] date: 1960 Sex: F Assigned Patient Location: US Current Patient Location: US Accession/Order Number: [id number] Exam Date: 09/07/2025 13:48 Report Date: 09/07/2025 14:47 At the request of: PADDY HER MD Procedure: US renal bladder BILATERAL RENAL AND BLADDER ULTRASOUND CLINICAL HISTORY: Urinary Tract Infection, Dysuria, Hematuria COMPARISON: None FINDINGS: Estimation of renal size is approximately 10.6 cm on the right and 11.4 cm on the left. No contour deforming mass, shadowing stone or hydronephrosis. The urinary bladder is partially distended with a volume of 238 ml. No shadowing stone or focal lesion. No significant postvoid residual. US/US renal bladder IMPRESSION: No acute findings. Impression dictated by: Leo Cuenca Jr., D.O. 09/07/2025 2:47 PM Dictation Location: [place] [address] Electronically authenticated by: [id number] Y Date: 09/07/2025 14:47
[2025-09-12 09:09] LABS: Antinuclear Antibodies, IFA Negative (.)
== END 2025-09-07 09:24 | disposition home or self-care (01) ==
LOC: US 09:25
PROVIDERS: PCP Family Medicine; Visit Provider Family Medicine
DX: M54.9 Dorsalgia, unspecified (principal); N39.0 Urinary tract infection, site not specified; R30.0 Dysuria; R31.9 Hematuria, unspecified
CPT/HCPCS: 36415; 76770; 80053; 84550; 85025; 85652; 86038; 86060; 86140; 86431

== ENCOUNTER 2025-09-14 14:04 | Outpatient (OUT) | payer OTHER, SELFPAY ==
--- OUTSIDE RECORDS SUMMARY | 2025-09-12 09:50 | XMS_ITS ---
Author Organization [facility] in [place] Address [address] [place] [address] Care Team Providers Care Gas Appliance Repairer Name Role Phone René Stone Primary Care Provider Reason For Referral Diagnosis 1 Joint pain (M25.50) Referral Organization [facility] Referring Provider First Name René Referring Provider Last Name Chase Referring Provider [facility] Referred Provider Ted Barrera Referred Provider Specialty Rheumatology Referral Priority Routine REASON FOR VISIT refer to Rheumatology Encounters Encounter Location Date Provider Diagnosis [facility] [address] [place] [address] 09/12/2025 René Stone Joint pain M25.5 0 Assessments Encounter Date Diagnosis (ICD Code) Assessment Notes Treatment Notes Treatment Clinical Notes Section Notes 09/12/2025 Joint pain (ICD-10 - M25.50) Plan Of Treatment Referrals Referral Date Details 2025 2025, Ted Barrera Progress Notes * STEPHEN, Cony LDOB: (65 yo F)Acc No.[id number]:09/12/2025 Patient: Cony VEGA :1960 A ge:64 Y S ex:Female Address:[address] [place] [phone] Subjective: * Chief Complaints: * r efer to Rheumatology * Medical History: * Surgical History: * Hospitalization/Major Diagno stic Procedure: * Medications: Objective: * Vitals: * Physical Examination: Assessment: * Assessment: 1. J oint pain - M25.50 (Primary) Plan: * Treatment: * Procedure Codes: * true * Date: Generated for Isiah garvey/Ke/Juan on: 1 02:07 PM EDT Consultation Request Notes Referral Date Referring Provider Referred Provider Not es 2025 René Stone Matthew
--- OUTSIDE RECORDS SUMMARY | 2025-09-13 04:34 | XMS_ITS ---
Author Organization [facility] [place] Address [address] [place] [address] Care Team Providers Care Screw Machine Adjuster Automatic Name Role Phone ChaseRené Primary Care Provider [phone] REASON FOR VISIT wants CXR Encounters Encounter Location Date Provider Diagnosis [facility] [address] [place] [address] 2025 René Stone Cough R05.9 Assessments Encounter Date Diagnosis (ICD Code) Assessment Notes Treatment Notes Treatment Clinical Notes Section Notes 2025 Cough (ICD-10 - R05.9) Plan Of Treatment Pending Test Test Name Order Date CULTURE SPUTUM 2025 XR CHEST 2 V 2025 Progress Notes * STEPHEN, Cony LDOB: (65 yo F)Acc No.[id number]:2025 Patient: Cony VEGA :1960 A ge:65 Y S ex:Female Address:[address] [place] [phone] Subjective: * Chief Complaints: * w ants CXR * Medical History: * Surgical History: * Hospitalization/Major Diagno stic Procedure: * Medications: Objective: * Vitals: * Physical Examination: Assessment: * Assessment: 1. C ough - R05.9 (Primary) Plan: * Treatment: * Procedure Codes: * true * Date: Generated for Printi ng/Faxing/eTransmitting on: 1 02:07 PM EDT
--- OUTSIDE RECORDS SUMMARY | 2025-09-14 14:07 | XMS_ITS | Encounter Summary ---
Author Organization [facility] Address [address] [place] [address] Care Team Providers Care Nutrition Aides Teacher Name Role Phone Naif Stone MD Primary Care Provider [phone] Encounter Details Date Type Department Care Team (Late st Contact Info) Description 03/16/2025 Orders Only [facility] [address] [place] [phone] Payton Ramirez LPN [address] [place] [id number] Social History Tobacco Use Types Packs/Day Years [...] on filedocumented in this encounter Care Teams Nutrition Aides Teacher Relationship Specialty Start Date End Date Naif Stone MD PCP - General Family Medicine 10/05/24 documented as of this encounter
--- OUTSIDE RECORDS SUMMARY | 2025-09-14 14:07 | XMS_ITS | Clinical Summary ---
Author Organization [facility] Address [address] [facility] [place] [address] Care Team Providers Care Rail Car Welder Name Role Phone Naif Stone MD Primary Care Provider [phone] Allergies Active Allergy Reactions Criticality Noted Date [...] 10/20/2024 2:45 PM EST Plan of Treatment Not on file Insurance [id number] [place] [address] Care Teams Rail Car Welder Relationship Specialty Start Date End Date Naif Stone MD PCP - General Family Medicine 10/05/24
--- OUTSIDE RECORDS SUMMARY | 2025-09-14 14:07 | XMS_ITS | Clinical Summary ---
Author Organization [facility] Address [address] [place], [place] [id number] Care Team Providers Care Telephone Service Adviser Name Role Phone Naif Stone MD Primary Care Provider [phone] Allergies Active Allergy Reactions Criticality Noted Date [...] 2011 Shingrix Vaccine (1 of 2) 2011 Covid-19 Vaccine (1 - season) 2025 Influenza Vaccine (#1) 2025 RSV Vaccine (1 - 1-dose 75+ series) 2036 Insurance [facility] Care Teams Telephone Service Adviser Relationship Specialty Start Date End Date Naif Stone MD PCP - General 11/28/08
--- OUTSIDE RECORDS SUMMARY | 2025-09-14 14:07 | XMS_ITS | CCD ---
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 Name Role Phone UNKNOWN, PROVIDER Admitting Unavailable UNKNOWN, PROVIDER Attending Unavailable PADDY STONE Referring Unavailable PADDY STONE Primary Care Unavailable Jose A Petersen Unavailable ARDEN ., DR THOMASON Primary Care Unavailable HOY ., DR THOMASON Consulting Unavailable HOY ., DR THOMASON Attending Unavailable HOY ., DR THOMASON Admitting Unavailable ALTONA, DR WALDO Perkins Consulting Unavailable HOY ., [...] Unavailable Paddy Stone MD Primary Care Provider [phone] KIANA LEMONS Referring Unavailable KIANA LEMONS Attending Unavailable KIANA LEMONS Referring Unavailable ANDREW STAHL Attending Unavailable Allergies Allergy Classification Reported Allergen(s) Allergy Type Date of Onset Reaction(s) Facility (3 sources) Acetaminophen / oxyCODONE Drug Allergy 10-19-20 14 [facility] (1 source) Sulfamethoxazole / Trimethoprim Drug Allergy 05-17-20 19 [facility] (2 sources) Acetaminophen / oxyCODONE Drug Allergy Unknown [facility] [employer] Other (4 sources) Latex Propensity to adverse reactions Unknown [facility] [place] Other (2 sources) Sulfacetamide / Sulfur Drug Allergy Unknown [facility] [place] [place] Other (8 sources) Sulfamethoxazole / Trimethoprim Drug Allergy 10-20-20 24 Unknown [facility] [place] [place] Other (2 sources) Codeine Drug Allergy 10-12-20 14 [facility] Repository (2 sources) Latex Drug allergy (disorder) 10-25-20 14 [facility] (1 source) Sulfamethoxazole / Trimethoprim Drug Allergy 01-08-20 17 [facility] (1 source) Sulfonamides (Antibiotic) Drug allergy (disorder) 01-08-20 17 [facility] Repository (6 sources) Acetaminophen Drug Allergy 02-08-20 20 [facility] (6 sources) Codeine Drug Allergy 10-20-20 24 [facility] (7 sources) Estrogens; Translations: [estrogens] Drug Allergy 10-20-20 24 Shortness of breath [facility] (6 sources) Latex Allergy to substance 05-16-20 09 Itching [facility] (6 sources) oxyCODONE Drug Allergy 02-08-20 20 [facility] (6 sources) Sulfamethoxazole Allergy to substance 02-08-20 [facility] (6 sources) Trimethoprim Drug Allergy 02-08-20 20 [facility] Medications Current Medications Medication Drug Class(es) [...] GDLNon AGE GDLN ACOG TESTING Note . [facility] Comment on above: TESTS RESULT FLAG UN ITS REF RANGE LAB Clinician Provided Cytology Information Source.............Vagina No. of containers..01 ThinPrep Vial Age Algo ACOG Yana... FLAG LEGEND: L-Low Normal,H-High Normal,LL-Alert Low,HH-Alert High <-Panic Low,>-Panic High,A-Abnormal,AA-Critical Abnormal Performed at: 01 =[address] [id number] Lennie Ballesteros MD, HPV APTIMA Negative Negative [facility] Comment on above: This nucleic acid am plification test detects fourteen high- risk HPV types (16,18,31,33,35,39,45,51,52,56,58,59,66,68) without differentiation. Performed at: =[address] [id number] Manager Nuclear: Lennie Ballesteros MD, Phone: [phone] Performed at: [address] [id number] Manager Nuclear: Lennie Ballesteros MD, Phone: [phone] IGP, APTIMA HPV, RFX 16/18,45 Note . [facility] Comment on above: TESTS RESULT FLAG UN ITS REF RANGE LAB DIAGNOSIS: 02 NEGATIVE FOR INTRAEPITHELIAL LESION OR MALIGNANCY. Specimen adequacy: 02 Satisfactory for evaluation. No endocervical cells are present. This is consistent with a history of hysterectomy. Performed by: 02 Ramya Estrella Quality Project Manager (ASCP) . 02 Note: Note 02 The [...] Low,>-Panic High,A-Abnormal,AA-Critical Abnormal Performed at: [address] [facility] [address] [address] Lennie Ballesteros MD, [facility]AT[facility] 04-02-2023 Creatinine [Mass/Vol] 0.80 mg/dL Normal 0.55-1.02 [facility] Comment on above: Performed By: #### L IPID, CMP, T7, TSH #### [facility] [address] [address] [address] Nga Ribeiro EGFR-AF AUSTRALIAN >60 Normal >=60 [facility] Comment on above: Performed By: #### L IPID, CMP, T7, TSH #### [facility] [address] [address] [address] Nga Ribeiro EGFR-NON AF AUSTRALIAN >60 Normal >=60 [facility] Comment on above: Performed By: #### L IPID, CMP, T7, TSH #### [facility] [address] ABD/PELV W CONon [...] WALDO BUSTAMANTE Date: 2023-04-02 15:30 Normal [facility] OCC BLD IMMUNO SCREENon OCCULT BLOOD Negative Normal NEGATIVE [facility] Comment on above: Performed By: #### O BSCRN #### [facility] [address] [place] [address] Dr. Nga Ribeiro INSULINon 10-31-2022 Insulin 8.8 uIU/mL Normal 2.6-24.9 [facility] Comment on above: Performed By: #### L IPID, CMP, T7, TSH #### [facility] [address] [place] [address] Dr. Nga Ribeiro CBC AUTO DIFFon 10-30-2022 BASO # 0.1 103/ul Normal 0.0-0.1 [facility] Comment on above: Performed By: #### L IPID, CMP, T7, TSH #### [facility] [address] [place] [address] Dr. Nga Ribeiro Basophils/100 WBC (Bld) 1.4 % Normal 0.2-2.0 [facility] Comment on above: Performed By: #### L IPID, CMP, T7, TSH #### [facility] [address] [place] [address] Dr. Nga Ribeiro EO # 0.3 103/ul Normal 0.0-0.7 [facility] Comment on above: Performed By: #### L IPID, CMP, T7, TSH #### [facility] [address] [place] [address] Dr. Nga Ribeiro Eosinophils/100 WBC (Bld) 6.3 % Normal 0.9-7.0 [facility] Comment on above: Performed By: #### L IPID, CMP, T7, TSH #### [facility] [address] [place] [address] Dr. Nga Ribeiro Erythrocyte distribution width (RBC) [Ratio] 12.7 % Normal 11.0-15.0 [facility] Comment on above: Performed By: #### L IPID, CMP, T7, TSH #### [facility] [address] [place] [address] Dr. Nga Ribeiro Hematocrit (Bld) [Volume fraction] 40.4 % Normal 36.0-48.0 [facility] Comment on above: Performed By: #### L IPID, CMP, T7, TSH #### [facility] [address] [place] [address] Dr. Nga Ribeiro Hemoglobin (Bld) [Mass/Vol] 13.8 g/dL Normal 12.0-16.0 [facility] Comment on above: Performed By: #### L IPID, CMP, T7, TSH #### [facility] [address] [place] [address] Dr. Nga Ribeiro IG # 0.01 10e3/ul Normal 0.00-0.03 [facility] Comment on above: Performed By: #### L IPID, CMP, T7, TSH #### [facility] [address] [place] [address] Dr. Nga Ribeiro IG % 0.2 % Normal 0.0-0.5 [facility] Comment on above: Performed By: #### L IPID, CMP, T7, TSH #### [facility] [address] [place] [address] Dr. Nga Ribeiro LYMPH # 1.9 103/ul Normal 1.2-3.8 [facility] Comment on above: Performed By: #### L IPID, CMP, T7, TSH #### [facility] [address] [address] [address] Nga Ribeiro Lymphocytes/100 WBC (Bld) 46.4 % Normal 20.5-60.0 [facility] Comment on above: Performed By: #### L IPID, CMP, T7, TSH #### [facility] [address] [place] [address] Dr. Nga Ribeiro MANUAL DIFF REQ NO Normal [facility] Comment on above: Performed By: #### L IPID, CMP, T7, TSH #### [facility] [address] [place] [address] Dr. Nga Ribeiro MCH (RBC) [Entitic mass] 30.6 pg Normal 26.7-34.0 [facility] Comment on above: Performed By: #### L IPID, CMP, T7, TSH #### [facility] [address] [place] [address] Dr. Nga Ribeiro MCHC (RBC) [Mass/Vol] 34.2 g/dL Normal 29.9-35.2 [facility] Comment on above: Performed By: #### L IPID, CMP, T7, TSH #### [facility] [address] [place] [address] Dr. Nga Ribeiro MCV (RBC) [Entitic vol] 89.6 fL Normal 81.0-99.0 [facility] Comment on above: Performed By: #### L IPID, CMP, T7, TSH #### [facility] [address] [place] [address] Dr. Nga Ribeiro MONO # 0.4 103/ul Normal 0.3-0.8 [facility] Comment on above: Performed By: #### L IPID, CMP, T7, TSH #### [facility] [address] [place] [address] Dr. Nga Ribeiro Monocytes/100 WBC (Bld) 9.1 % Normal 1.7-12.0 [facility] Comment on above: Performed By: #### L IPID, CMP, T7, TSH #### [facility] [address] [address] [address] Nga Ribeiro NEUT # 1.5 103/ul Normal 1.4-6.5 [facility] Comment on above: Performed By: #### L IPID, CMP, T7, TSH #### [facility] [address] [address] [address] Nga Ribeiro Neutrophils/100 WBC (Bld) 36.6 % Critically low 43.0-75.0 [facility] Comment on above: Performed By: #### L IPID, CMP, T7, TSH #### [facility] [address] [address] [address] Nga Ribeiro Platelet mean volume (Bld) [Entitic vol] 9.2 fL Critically low 9.5-13.5 [facility] Comment on above: Performed By: #### L IPID, CMP, T7, TSH #### [facility] [address] [address] [address] Nga Ribeiro PLT 194 103/ul Normal 150-450 [facility] Comment on above: Performed By: #### L IPID, CMP, T7, TSH #### [facility] [address] [address] [address] Nga Ribeiro RBC 4.51 106/ul Normal 4.20-5.40 [facility] Comment on above: Performed By: #### L IPID, CMP, T7, TSH #### [facility] [address] [address] [address] Nga Ribeiro WBC 4.2 103/ul Normal 4.0-11.0 [facility] Comment on above: Performed By: #### L IPID, CMP, T7, TSH #### [facility] [address] [place] [address] Dr. Nga Ribeiro FREE THYROXINE INDEX T7on FTI 2.66 Normal 1.30-4.50 [facility] Comment on above: Performed By: #### L IPID, CMP, T7, TSH #### [facility] [address] [place] [address] Dr. Nga Ribeiro T3U 36.0 % Normal 30.0-39.0 [facility] Comment on above: Performed By: #### L IPID, CMP, T7, TSH #### [facility] [address] [address] [address] Nga Ribeiro T4 [Mass/Vol] 7.40 ug/dL Normal 4.80-13.90 [facility] Comment on above: Performed By: #### L IPID, CMP, T7, TSH #### [facility] [address] [address] [address] Nga Ribeiro GLYCOHEMOGLOBIN A1Con 2021 ADA RECOMMENDATION SEE BELOW Normal [facility] Comment on above: Result Comment: ADA RECOMMENDED LIMIT 4.0 - 6.0 ADA THERAPEUTIC TARGET < 7.0 ACTION SUGGESTED > 7.0 Performed By: #### A 1C #### [facility] [address] [place] [address] Dr. Nga Ribeiro Glucose [Mass/Vol] 94 mg/dL Normal [facility] Comment on above: Performed By: #### A 1C #### [facility] [address] [address] [address] Nga Ribeiro HbA1c (Bld) [Mass fraction] 4.9 % Normal 4.5-6.2 [facility] Comment on above: Performed By: #### A 1C #### [facility] [address] [place] [address] Dr. Nga Ribeiro IRONon 10-30-2022 Iron [Mass/Vol] 119.0 ug/dL Normal 50.0-170.0 [facility] Comment on above: Performed By: #### I CHARISMA #### [facility] [address] [address] [address] Nga Ribeiro LIPID PROFILEon 10-30-2022 CHOL-HDL RATIO NORM SEE BELOW Normal [facility] Comment on above: Result Comment: 3.3 - 4.4 LOW RISK 4.4 - 7.1 AVERAGE RISK 7.1 - 11.0 MODERATE RISK >11.0 HIGH RISK Performed By: #### L IPID, CMP, T7, TSH #### [facility] [address] [address] [address] Nga Ribeiro Cholesterol [Mass/Vol] 201 mg/dL Critically high <=200 [facility] Comment on above: Performed By: #### L IPID, CMP, T7, TSH #### [facility] [address] [address] [address] Nga Ribeiro Cholesterol in HDL [Mass/Vol] 78 mg/dL Critically high 40-60 [facility] Comment on above: Performed By: #### L IPID, CMP, T7, TSH #### [facility] [address] [address] [address] Nga Ribeiro Cholesterol in LDL [Mass/Vol] 108.8 mg/dL Normal [facility] Comment on above: Performed By: #### L IPID, CMP, T7, TSH #### [facility] [address] [address] [address] Nga Ribeiro Cholesterol.total/Ch olesterol in HDL [Mass ratio] 2.6 {ratio} Normal [facility] Comment on above: Performed By: #### L IPID, CMP, T7, TSH #### [facility] [address] [address] [address] Nga Ribeiro HDL NORMAL > or = 60 mg/dl - LO W CARDIOVASCULAR RISK <40 mg/dl - HIGH CARDIOVASCULAR RISK Normal [facility] Comment on above: Performed By: #### L IPID, CMP, T7, TSH #### [facility] [address] [address] [address] Nga Ribeiro LDL CALC NORMAL SEE BELOW Normal [facility] Comment on above: Result Comment: <100 mg/dl OPTIMAL 100 - 129 mg/dl NEAR OR ABOVE OPTIMAL 130 - 159 mg/dl BORDERLINE HIGH 160 - 189 mg/dl HIGH >190 mg/dl VERY HIGH Performed By: #### L IPID, CMP, T7, TSH #### [facility] [address] [address] [address] Nga Ribeiro Triglyceride [Mass/Vol] 71 mg/dL Normal <=150 [facility] Comment on above: Performed By: #### L IPID, CMP, T7, TSH #### [facility] [address] [address] [address] Nga Ribeiro VLDL CALC 14.2 mg/dL Normal [facility] Comment on above: Performed By: #### L IPID, CMP, T7, TSH #### [facility] [address] [address] [address] Nga Ribeiro PROF 14(COMP METB)on 022 Albumin [Mass/Vol] 3.8 g/dL Normal 3.4-5.0 [facility] Comment on above: Performed By: #### L IPID, CMP, T7, TSH #### [facility] [address] [address] [address] Nga Ribeiro Albumin/Globulin [Mass ratio] 1.1 {ratio} Normal [facility] Comment on above: Performed By: #### L IPID, CMP, T7, TSH #### [facility] [address] [address] [address] Nga Ribeiro ALP [Catalytic activity/Vol] 91 U/L Normal 46-116 [facility] Comment on above: Performed By: #### L IPID, CMP, T7, TSH #### [facility] [address] [address] [address] Nga Ribeiro ALT [Catalytic activity/Vol] 19 U/L Normal 14-59 [facility] Comment on above: Performed By: #### L IPID, CMP, T7, TSH #### [facility] [address] [address] [address] Nga Ribeiro Anion gap [Moles/Vol] 9.2 mmol/L Normal [facility] Comment on above: Performed By: #### L IPID, CMP, T7, TSH #### [facility] [address] [address] [address] Nga Ribeiro AST [Catalytic activity/Vol] 18 U/L Normal 15-37 [facility] Comment on above: Performed By: #### L IPID, CMP, T7, TSH #### [facility] [address] [address] [address] Nga Ribeiro Bilirubin [Mass/Vol] 0.5 mg/dL Normal 0.2-1.0 [facility] Comment on above: Performed By: #### L IPID, CMP, T7, TSH #### [facility] [address] [place] [address] Dr. Nga Ribeiro Calcium [Mass/Vol] 9.5 mg/dL Normal 8.5-10.1 [facility] Comment on above: Performed By: #### L IPID, CMP, T7, TSH #### [facility] [address] [address] [address] Nga Ribeiro Chloride [Moles/Vol] 105 mmol/L Normal 98-107 [facility] Comment on above: Performed By: #### L IPID, CMP, T7, TSH #### [facility] [address] [place] [address] Dr. Nga Ribeiro CO2 [Moles/Vol] 29.5 mmol/L Normal 21.0-32.0 [facility] Comment on above: Performed By: #### L IPID, CMP, T7, TSH #### [facility] [address] [place] [address] Dr. Nga Ribeiro Creatinine [Mass/Vol] 0.68 mg/dL Normal 0.55-1.02 [facility] Comment on above: Performed By: #### L IPID, CMP, T7, TSH #### [facility] [address] [place] [address] Dr. Nga Ribeiro EGFR-AF AUSTRALIAN >60 Normal >=60 [facility] Comment on above: Performed By: #### L IPID, CMP, T7, TSH #### [facility] [address] [place] [address] Dr. Nga Ribeiro EGFR-NON AF AUSTRALIAN >60 Normal >=60 [facility] Comment on above: Performed By: #### L IPID, CMP, T7, TSH #### [facility] [address] [place] [address] Dr. Nga Ribeiro Globulin (S) [Mass/Vol] 3.6 g/dL Normal [facility] Comment on above: Performed By: #### L IPID, CMP, T7, TSH #### [facility] [address] [address] [address] Nga Ribeiro Glucose [Mass/Vol] 100 mg/dL Normal 74-106 [facility] Comment on above: Performed By: #### L IPID, CMP, T7, TSH #### [facility] [address] [address] [address] Nga Ribeiro Potassium [Moles/Vol] 4.7 mmol/L Normal 3.5-5.1 [facility] Comment on above: Performed By: #### L IPID, CMP, T7, TSH #### [facility] [address] [place] [address] Dr. Nga Ribeiro Protein [Mass/Vol] 7.4 g/dL Normal 6.4-8.2 [facility] Comment on above: Performed By: #### L IPID, CMP, T7, TSH #### [facility] [address] [place] [address] Dr. Nga Ribeiro Sodium [Moles/Vol] 139 mmol/L Normal 136-145 [facility] Comment on above: Performed By: #### L IPID, CMP, T7, TSH #### [facility] [address] [address] [address] Nga Ribeiro Urea nitrogen [Mass/Vol] 19.0 mg/dL Critically high 7.0-18.0 [facility] Comment on above: Performed By: #### L IPID, CMP, T7, TSH #### [facility] [address] [place] [address] Dr. Nga Ribeiro Urea nitrogen/Creatinine [Mass ratio] 27.9 mg/mg Normal [facility] Comment on above: Performed By: #### L IPID, CMP, T7, TSH #### [facility] [address] [place] [address] Dr. Nga Ribeiro TSHon 10-30-2022 TSH 0.871 uIU/mL Normal 0.358-3.740 [facility] Comment on above: Performed By: #### L IPID, CMP, T7, TSH #### [facility] [address] [place] [address] Dr. Nga Ribeiro Covid-19 PCR (CVDTB)on 10-01 SARS-CoV-2 (COVID-19) RNA VALENTINA+probe Ql (Unsp spec) Not detected Normal NOT DETECTED [facility] Comment on above: Result Comment: When diagnostic [...] for this test is supported by the [employer] of Health and Human Service's declaration that [...] used). Performed By: #### C VDTBH #### [facility] [address] [address] [address] Nga Ribeiro INFLUENZA A AND B AGon 10-22 INFLUANEGH SEE BELOW Normal [facility] Comment on above: Result Comment: Nega tive for Flu A protein angiten. Infection due to Flu A cannot be ruled out. Flu A angiten in the sample may be below the detection limit of the test. Performed By: #### L IPID, CMP, T7, TSH #### [facility] [address] [address] [address] Nga Ribeiro INFLUBNEG SEE BELOW Normal [facility] Comment on above: Result Comment: Nega tive for Flu B protein antigen. Infection due to Flu B cannot be ruled out. Flu B antigen in the sample may be below the detection limit of the test. Performed By: #### L IPID, CMP, T7, TSH #### [facility] [address] [address] [address] Nga Ribeiro INFLUENZA A AG Negative Normal NEGATIVE SEE COMMENT [facility] Comment on above: Performed By: #### L IPID, CMP, T7, TSH #### [facility] [address] [place], [place] [address] Dr. Nga Ribeiro INFLUENZA B AG Negative Normal NEGATIVE SEE COMMENT [facility] Comment on above: Performed By: #### L IPID, CMP, T7, TSH #### [facility] [address] [place], [place] [address] Dr. Nga Ribeiro INTERNAL CONTROLS Within Normal Limits Normal Wi thin Normal Limits [facility] Comment on above: Performed By: #### L IPID, CMP, T7, TSH #### [facility] [address] [place], [place] [address] Dr. Nga Ribeiro MRI Shoulder w/o Lefton [...] by Maulik Stewart on 10/02/2022 1335 Normal [facility] Housekeeping/Laundry MG MAMM SCREEN 3D ZARI CADon 06-16-2022 MG MAMM SCREEN 3D ZARI CAD Patient: CONY MATOS Exam Date: 06/16/2022 : 1960 Gender:F Ordering : DR ANDREW STAHL . Admission #: [id number] Family : Order #: [id number] CLICK HERE TO VIEW EXAM RADIOLOGY REPORT [...] Treatments Excision Family Cancers None LOCATION: [facility] BREAST COMPOSITION: Scattered areas fibroglandular density. FINDINGS: [...] Nixon M.D. on 06/16/2022 at 13:28 Normal [facility] PAP ACOG PANEL 2: 30 to 65on 05-30-2022 . . Normal [facility] Comment on above: Result Comment: Perf ormed at: WB Performed By: #### L IPID, CMP, T7, TSH #### [facility] [address] [address] [address] Nga Ribeiro Age Gdln ACOG Testing 30-65 Normal [facility] Comment on above: Performed By: #### L IPID, CMP, T7, TSH #### [facility] [address] [address] [address] Nga Ribeiro DIAGNOSIS: Comment Normal [facility] Comment on above: Result Comment: UNSA TISFACTORY FOR EVALUATION. Performed at: WB Performed By: #### L IPID, CMP, T7, TSH #### [facility] [address] [id number] Nga Ribeiro HPV Aptima Negative Normal Negative [facility] Comment on above: Result Comment: This nucleic acid amplification test detects fourteen high-risk HPV types (16,18,31,33,35,39,45,51,52,56,58,59,66,68) without differentiation. Performed at: =G Performed By: #### L IPID, CMP, T7, TSH #### [facility] [address] [address] [address] Nga Ribeiro Methodology: Comment Normal [facility] Comment on above: Result Comment: This liquid based ThinPrep(R) pap test was screened with the use of an image guided system. Performed at: WB Performed By: #### L IPID, CMP, T7, TSH #### [facility] [address] [address] [address] Nga Ribeiro Note: Comment Normal [facility] Comment on above: Result Comment: The [...] #### L IPID, CMP, T7, TSH #### [facility] [address] [address] [address] Nga Ribeiro Performed by: Comment Normal [facility] Comment on above: Result Comment: Kolton Carpio, Quality Project Manager (ASCP) Performed at: WB Performed By: #### L IPID, CMP, T7, TSH #### [facility] [address] [address] [address] Nga Ribeiro QC reviewed by: Comment Normal [facility] Comment on above: Result Comment: Adore Sloan, Supervisory Quality Project Manager (ASCP) Performed at: WB Performed By: #### L IPID, CMP, T7, TSH #### [facility] [id number] Nga Ribeiro Recommendation: Comment Normal [facility] Comment on above: Result Comment: Sugg est follow up as clinically appropriate. Performed at: WB Performed By: #### L IPID, CMP, T7, TSH #### [facility] [address] [address] [address] Nga Ribeiro Specimen adequacy: Comment Normal [facility] Comment on above: Result Comment: Spec imen processed and examined but unsatisfactory for evaluation of epithelial abnormality because of insufficient cellularity. Performed at: WB Performed By: #### L IPID, CMP, T7, TSH #### [facility] [address] [address] [address] Nga Ribeiro MR knee RT wo conon 08-30-20 MR knee RT wo con [facility] [place] [address] [place] [address] MRI Report Signed Patient: Cony Matos MR#: [id number] [birth year] : 1960 Acct:[id number] Age/Sex: 60 / F ADM Date: 08/30/21 Loc: [facility] Room: Type: [facility] CLI Attending Dr: Jose A Petersen MD [...] Jamarcus Prado M.D.08/30/2021 11:36 AM Dictation Location: [place] [address] Transcribed By: [facility] 08/30/21 1136 Dictated By: Jamarcus Prado II, MD 08/30/21 1120 Signed By: 08/30/21 1136 Normal [facility] XR knee RT 2Von 08-22-2021 XR knee RT 2V [facility] [place] [address] [place] [address] XRay Report Signed Patient: Cony Matos MR#: [id number] [birth year] : 1960 Acct:[id number] Age/Sex: 60 / F ADM Date: 08/22/21 Loc: [facility] [place] [place] Room: Type: [facility] Attending Dr: Jose A Petersen MD [...] Jamarcus Prado M.D.08/22/2021 1:26 PM Dictation Location: [place] [address] Transcribed By: BIJAN 08/22/21 1326 Dictated By: Jamarcus Prado II, MD 08/22/21 1325 Signed By: 08/22/21 1326 [facility] Cardiovascular Lab Reporton 05-17-2019 Cardiovascular Lab Report [facility] MR #: [id number] Department of Physician: Rico James M.D. Division of Service Date: 05/17/2019 Cardiology Birthdate: 1960 Adult Cardiovascular Room #: [place] [address] Cardiovascular Laboratory Report INDICATION: The patient is [...] right internal jugular vein was accessed. A 6-Moroccan x 11 cm sheath was placed. A 6-Moroccan Irvni catheter was used for right heart catheterization with measurement of pressures and calculation of cardiac output using the estimated Sherman method. Irvin catheter was removed. Jamar's test was favorable on the right. Access in the right radial artery was obtained using micropuncture technique, a 5-Moroccan 11 cm Hydrophilic sheath was advanced. Verapamil was given through the sheath and heparin was administered intravenously. Bilateral selective coronary angiography was then performed using a 6-Moroccan JL5 diagnostic catheter. This catheter was removed. [...] James M.D. Date Trans: 05/17/2019 01:54 P/timoteo [id number] cc: Paddy Stone M.D. [address] [place] [address] Normal [facility] Vital Signs Date Time Vital Sign Value Performing Clinician Facility 03-06-2025 14:59-0400 Body mass index (BMI) [Ratio] 27.94 kg/m2 Andrew Stahl DO Work Phone: [facility] 03-06-2025 14:59-0400 Body weight 73.85 kg Andrew Maribeth DO Work Phone: [facility] 03-06-2025 14:59-0400 Diastolic blood pressure 80 mm[Hg] Andrew Maribeth DO Work Phone: [facility] 03-06-2025 14:59-0400 Systolic blood pressure 120 mm[Hg] Andrew Maribeth DO Work Phone: [facility] 10-20-2024 14:45-0500 Body height 162.6 cm Kiana [employer] Work Phone: [facility] 10-20-2024 14:45-0500 Body mass index (BMI) [Ratio] 28.84 kg/m2 Kiana [employer] Work Phone: [facility] 10-20-2024 14:45-0500 Body temperature 97.11 [degF] Kiana [employer] Work Phone: [facility] 10-20-2024 14:45-0500 Body weight 76.2 kg Kiana [employer] Work Phone: [facility] 08-22-2021 10:00-0400 Body height 167.64 cm Jose A Petersen Other [employer] Other 08-22-2021 10:00-0400 Body mass index (BMI) [Ratio] 25.01 kg/m2 Jose A Olexa Other [employer] Other 08-22-2021 10:00-0400 Body weight 70.31 kg Jose A Olexa Other [employer] Other Encounters Encounter Date Encounter Type Care Provider Facility Start: 03-06-2025 End: 03-06-2025 Patient encounter procedure Andrew Maribeth DO Work Phone: [facility] Work Phone: Start: 03-06-2025 End: 03-06-2025 Periodic [...] [facility] External Department Unsolicited Start: 01-26-2025 ambulatory Facility:[facility] Start: 10-20-2024 End: 10-20-2024 Patient encounter procedure [...] abnormal findings DR PADDY STONE . [facility] Start: 11-03-2022 End: 11-03-[address] PADDY [...] End: 10-03-2021 ambulatory Jose A Petersen Other [employer] Other Start: 10-03-2021 Telephone encounter Jose A Petersen [facility] Start: 08-22-2021 Office outpatient ne w 45 minutes Jose A Petersen [facility] Start: 05-17-2019 End: 05-18-2019 Patient encounter procedure PROVIDER UNKNOWN Facility:[facility] Procedures Date Procedure Procedure Detail Performing Clinician Start: 03-06-2025 IGP,APTIMA HPV,AGE GDLN Anrdew Stahl DO Work Phone: Start: 10-20-2024 Radex [...] Influenza vaccination Influenza Vacc ine (#1) [facility] Start: 2001 Screening for malignant neoplasm of breast Mammogram [facility] Start: 1991 Screening for malignant neoplasm of cervix [facility] Start: 1982 Screening for malignant neoplasm of cervix Pap Smear [facility] Start: 1961 Screening for malignant neoplasm of colon [facility] THIN PREP TIS PAP AN D HR HPV DNA THIN PREP TIS PAP AND HR HPV DNA Pathology and Cytology Routine Well woman exam with routine gynecological exam Ordered: 03/06/2025 [facility] Comment on above: Ordered: 03/06/2025 XR Hip - right 3 Views XR hip ri ght 2 or 3 views Imaging Routine Left hip pain 10/20/2024 2:49 PM EST [facility] Work Phone: Payers Date Payer Category Payer Private Health Insurance [facility] Member Subscriber Plan / Payer (Effective 2015-Present) Name: Cony Matos Relation to Subscriber: Spouse Name: SHAWNAJOHNATHAN Date of : 1957 Address: [address] [place] [address] Payer ID: [id number] (NAIC) Type: Not on file Address: [place] [id number] 1960 Unknown [id number] 2.16.840.1.378650.3.579 .2.647 1960 Unknown [id number] 2.16.840.1.224374.3.579 .2.593 1960 Unknown [id number] 2.16.840.1.862167.3.579 .2.593 1960 Unknown [id number] 2.16.840.1.831922.3.579 .2.593 1960 Unknown [id number] 2.16.840.1.690805.3.579 .2.593 1960 Unknown [id number] 2.16.840.1.909031.3.579 .2.593 1960 Unknown [id number] 2.16.840.1.691748.3.579 .2.593 1960 Unknown [id number] 2.16.840.1.491911.3.579 .2.593 1961 Unknown [id number] 2.16.840.1.869172.3.579 .2.593 1960 Unknown [id number] 2.16.840.1.650629.3.579 .2.727 1960 Unknown [id number] 2.16.840.1.742160.3.579 .2.1259 1961 Unknown [id number] 2.16.840.1.881325.3.579 .2.1259 1960 Unknown [id number] 2.16.840.1.231284.3.579 .2.1259 1958 Self-pay 1958 Unknown [id number] Social History Date Type Detail Facility Start: 10-20-2024 Sex Assigned At [facility] Location Labs Other Start: 10-20-2024 Tobacco smoking stat [facility] Never smoked tobacco [facility] Start: 10-20-2024 Tobacco use and exposure Smokeless tobacco non-user [facility] Start: 10-20-2024 End: 03-06-2025 Alcoholic beverage intake Ex-drinker (finding) [facility] Start: 10-20-2024 History of Social function [facility] Start: 1960 Sex assigned at Not on file [facility] Start: 06-23-2024 Gender identity Identifies as female gender (finding) [facility] History of Present illness Narrative [...] nursing note reviewed. Exam conducted with a porter head present. Vitals: Estimated body mass index is [...] AP pelvis, right hip taken in the [place] office saved to the permanent record shows [...] be a big aggravator. She also sits [place]-style quite often which may cause some pain in that area. We discussed conservative management. She would like to move forward with hip arthrogram. We discussed the perioperative course, time, healing, commitment and expectations. We discussed jail definitive role of total hip replacement. Indications [...] of pain and plan potential surgical treatment. [employer] Other Evaluation note Note Date & Type Note Facility Evaluation note No Information [employer] Other Evaluation note Note Date & Type Note Facility Evaluation note Diagnosis Left hip pain- Primary Pain in joint, pelvic region and thigh documented in this encounter [facility] Evaluation note Note Date & Type Note Facility Evaluation note Diagnosis Postmenopausal atrophic vaginitis- Primary Well woman exam with routine gynecological exam Routine gynecological examination Breast cancer screening by mammogram Postmenopausal state Asymptomatic postmenopausal status (age-related) (natural) documented in this encounter [facility] History general Narrative - Reported Note Date & Type Note Facility History general Narrative - Reported Type Surgical History C section x3 Surgical History hysterectomy Surgical History gall bladder Hospitalization History see above [employer] Other Summary Purpose Family History No Family [...] section and content) DATE CREATED AUTHOR 07/12/2019 [facility] DATE CREATED AUTHOR AUTHOR'S ORGANIZ ATION 01/16/2022 [facility] DATE CREATED AUTHOR AUTHOR'S ORGANIZ ATION 10/03/2022 [facility] Special[facility] DATE CREATED AUTHOR AUTHOR'S ORGANIZ ATION 04/09/2023 [facility] DATE CREATED AUTHOR AUTHOR'S ORGANIZ ATION 01/28/2025 Luis Sharma [facility] DATE CREATED AUTHOR AUTHOR'S ORGANIZ ATION 03/07/2025 [facility] d[facility] Specialists EPIC REASON FOR VISIT (unrecogniz ed section and content) Reason Comments Pain Reason Comments Well Women Visit Care Teams (unrecognized sec tion and content) 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 Relationship Specialty Start Date End Date Paddy Stone MD [address] [place] [address] PCP - General Family Medicine 10/05/24 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 Relationship Specialty Start Date End Date Paddy Stone MD [address] [place] [address] PCP - General Family Medicine 10/05/24 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 Relationship Specialty Start Date End Date Paddy Stone MD [address] [place] [address] PCP - General Family Medicine 10/05/24 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 Relationship Specialty Start Date End Date Paddy Stone MD [address] [place] [address] PCP - General Family Medicine 10/05/24 FOR [...] BE BASED ON THE PRIMARY CLINICAL RECORDS. [employer] [facility]. provides no warranty or guarantee of the accuracy or completeness of information in this document.
--- OUTSIDE RECORDS SUMMARY | 2025-09-14 14:08 | XMS_ITS | Clinical Summary ---
Author Organization [facility] Address [address] [place] [address] Care Team Providers Care Industry Analyst Name Role Phone Unavailable Primary Care Provider Unavailabl e Social History Tobacco Use Types Packs/Day Years Used Date Smoking Tobacco: Never Assessed Comments Unknown Sex and Gender Information Value Date Recorded Sex Assigned at Not on file Legal Sex Female 9:51 PM EDT Gender Identity Not on file Sexual Orientation Not on file Last Filed Vital Signs Vital Sign Reading Time Taken Comments Blood Pressure 120/74 05/31/2019 1:46 PM EDT Pulse - - Temperature - - Respiratory Rate - - Oxygen Saturation 99% 05/31/2019 1:45 PM EDT Inhaled Oxygen Concentration - - Weight 75.3 kg (166 lb) 05/31/2019 1:44 PM EDT Height 167.6 cm (5' 6 ) 05/31/2019 1:44 PM EDT Body Mass Index 26.79 05/31/2019 1:44 PM EDT Plan of Treatment Not on file
--- OUTSIDE RECORDS SUMMARY | 2025-09-14 14:08 | XMS_ITS | Patient Health Record ---
Author Organization [facility] Address [facility] [place] [address] Care Team Providers Care Mechanical Maintenance Name Role Phone Naif Stone MD Primary Care Provider Derek Hilliard Unavailable [phone] Allergies Allergen (clinical drug ingredient) Drug/Non Drug [...] Status Risk Notes Problem Pain in limb (36678650) Pain in soft tissues of limb (729.5) Active confirmed Problem Acquired hallux valgus (16132168) Hallux valgus (acquired) (735.0) Active confirmed Plan Of Treatment No Information Insurance Providers Payer Name Payer Address Payer Phone Subscriber Number Group Number Insured Name Patient Relationship to Insured Coverage Start Date Coverage End Date [facility] [address] [place] [phone] [id number] Cony Mitchell Self - patient is the insured Medical (General) History Medical History History ICD Code cancer Surgical History Surgery Date(Month/Year) 8 foot operationts to remove neuroma 200 6 cholecystectomy 05/2013
--- OUTSIDE RECORDS SUMMARY | 2025-09-14 14:08 | XMS_ITS | Patient Health Record ---
Author Organization The [facility] in [place] Address [address] [place] [address] Care Team Providers Care Book Jogger Name Role Phone ChaunceyRené chavez Primary Care Provider Allergies Allergen (clinical drug ingredient) Drug/Non Drug Allergy documented on EMR Reaction Allergy Type Onset Date Status sulfamethoxazole / trimethoprim Bactrim hives, trouble breathing Drug Allergy Active acetaminophen / oxycodone Percocet hives Drug Allergy Active Results Component Value Reference Range Notes COVID-19, Flu A+B IH Reviewed date:01/14/2025 02:16:05 PM Interpretation: Performing Lab: Notes/Report: COVID - FLU A - FLU B - Control + UA DIP NONAUTO WO MICRO (810 02) - IN OFFICE Reviewed date:09/07/2025 12:46:37 PM Interpretation: Performing Lab: Notes/Report: COLOR yellow CLARITY clear GLUCOSE n BILIRUBIN n KETONE 5 SPECIFIC GRAVITY 1.00 BLOOD ++ PH 6.5 PROTEIN 15 UROBILINOGEN n NITRITE n LEUKOCYTE ESTERASE n CBC AUTO DIFF Reviewed date:09/07/2025 12:46:37 PM Interpretation: Performing Lab: Notes/Report: [facility] , White Blood Count 4.5 4.0-11.0 10 3/uL Red Blood Count 4.56 4.20-5.40 10 6/uL Hemoglobin 13.7 12.0-16.0 g/dL Hematocrit 41.2 36.0-48.0 % Mean Corpuscular Volume 90.4 81.0-99.0 fL Mean Corpuscular Hemoglobin 30.0 26.7-34.0 pg Mean Corpuscular HGB Conc 33.3 29.9-35.2 g/dL Red Cell Distribution Width 13.0 11.0-15.0 % Platelet Count 191 150-450 10 3/uL Mean Platelet Volume 9.6 9.5-13.5 fL Neutrophils Percent Auto 55.0 43.0-75.0 % Lymphocytes Percent Auto 26.3 20.5-60.0 % Monocytes Percent Auto 11.7 1.7-12.0 % Eosinophils Percent Auto 6.1 0.9-7.0 % Basophils Percent Auto 0.9 0.2-2.0 % Immature Granulocytes Pct Auto 0.0 0.0-0.5 % Neutrophils Absolute Auto 2.5 1.4-6.5 10 3/uL Lymphocytes Absolute Auto 1.2 1.2-3.8 10 3/uL Monocytes Absolute Auto 0.5 0.3-0.8 10 3/uL Eosinophils Absolute Auto 0.3 0.0-0.7 10 3/uL Basophils Absolute Auto 0.0 0.0-0.1 10 3/uL Immature Granulocytes Abs Auto 0.00 0.00-0.03 10 3/uL Performing Lab: see note ML - [facility] LB PROF 14(COMP METB) Reviewed date:09/07/2025 12:46:37 PM Interpretation: Performing Lab: Notes/Report: [facility] , Sodium 139 136-145 mmol/L Potassium 4.4 3.5-5.1 mmol/L Chloride 102 98-107 mmol/L Carbon Dioxide 27.4 21.0-32.0 mmol/L Anion Gap 14.0 Glucose 88 74-106 mg/dL Blood Urea Nitrogen 16.0 7.0-18.0 mg/dL Creatinine 0.81 0.55-1.02 mg/dL Estimated GFR ( Ciarra >60 >=60 mL/min/1.73m 2 Estimated GFR (Non- Bere >60 >=60 mL/min/1.73m 2 BUN Creatinine Ratio 19.8 Calcium 8.9 8.5-10.1 mg/dL Bilirubin Total 0.4 0.2-1.0 mg/dL Aspartate Amino Transferase 23 15-37 U/L Alanine Aminotransferase 26 14-59 U/L Alkaline Phosphatase 95 46-116 U/L Total Protein 7.9 6.4-8.2 g/dL Albumin Level 3.7 3.4-5.0 g/dL Globulin 4.2 Albumin Globulin Ratio 0.9 Performing Lab: see note ML - [facility] LB US renal bladder Reviewed date:09/07/2025 06:08:58 PM Interpretation: Performing Lab: Notes/Report: Source Facility: [place] [address] Ultrasound Report Signed Patient: CONY MITCHELL MR#: [id number] : 1960 Acct:[id number] Age/Sex: 64 / F ADM Date: 09/07/25 Loc: US Attending Dr: Paddy Her M.D. Ordering Physician: Paddy Her M.D. Date of Service: 09/07/25 Procedure(s): US renal bladder Accession Number(s): [id number] cc: Paddy Her M.D. [place] [address] Patient Name: CONY MITCHELL MRN: [id number] date: 1960 Sex: F Assigned Patient Location: US Current Patient Location: US Accession/Order Number: [id number] Exam Date: 09/07/2025 13:48 Report Date: 09/07/2025 14:47 At the request of: PADDY HER MD Procedure: US renal bladder BILATERAL RENAL AND BLADDER ULTRASOUND CLINICAL HISTORY: Urinary Tract Infection, Dysuria, Hematuria COMPARISON: None FINDINGS: Estimation of renal size is approximately 10.6 cm on the right and 11.4 cm on the left. No contour deforming mass, shadowing stone or hydronephrosis. The urinary bladder is partially distended with a volume of 238 ml. No shadowing stone or focal lesion. No significant postvoid residual. US/US renal bladder IMPRESSION: No acute findings. Impression dictated by: Leo Cuenca Jr., D.O. 09/07/2025 2:47 PM Dictation Location: [place] [address] Electronically authenticated by: [id number] Y Date: 09/07/2025 14:47 Dictated By: Leo Cuenca M.D. Signed By: 09/07/25 1458 DD/ 1447 TD/TT: Rn Mobile: CBC AUTO DIFF Reviewed date:01/25/2025 12:39:10 PM Interpretation: Performing Lab: Notes/Report: [facility] , White Blood Count 4.6 4.0-11.0 10 3/uL Red Blood Count 4.38 4.20-5.40 10 6/uL Hemoglobin 13.4 12.0-16.0 g/dL Hematocrit 39.0 36.0-48.0 % Mean Corpuscular Volume 89.0 81.0-99.0 fL Mean Corpuscular Hemoglobin 30.6 26.7-34.0 pg Mean Corpuscular HGB Conc 34.4 29.9-35.2 g/dL Red Cell Distribution Width 12.8 11.0-15.0 % Platelet Count 253 150-450 10 3/uL Mean Platelet Volume 9.0 9.5-13.5 fL Neutrophils Percent Auto 34.7 43.0-75.0 % Lymphocytes Percent Auto 43.6 20.5-60.0 % Monocytes Percent Auto 9.1 1.7-12.0 % Eosinophils Percent Auto 10.4 0.9-7.0 % Basophils Percent Auto 2.0 0.2-2.0 % Immature Granulocytes Pct Auto 0.2 0.0-0.5 % Neutrophils Absolute Auto 1.6 1.4-6.5 10 3/uL Lymphocytes Absolute Auto 2.0 1.2-3.8 10 3/uL Monocytes Absolute Auto 0.4 0.3-0.8 10 3/uL Eosinophils Absolute Auto 0.5 0.0-0.7 10 3/uL Basophils Absolute Auto 0.1 0.0-0.1 10 3/uL Immature Granulocytes Abs Auto 0.01 0.00-0.03 10 3/uL Performing Lab: see note ML - [facility] LB GLYCOHEMOGLOBIN A1C Reviewed date:01/25/2025 12:39:10 PM Interpretation: Performing Lab: Notes/Report: [facility] , Glycohemoglobin A1C 4.9 4.5-6.2 % ADA RECOMMENDED LIMIT 4.0 - 6.0 > 7.0 ADA THERAPEUTIC TARGET < 7.0 ACTION SUGGESTED Estimated Average Glucose 94 Performing Lab: see note ML - [facility] LB LIPID PROFILE Reviewed date:01/25/2025 12:39:10 PM Interpretation: Performing Lab: Notes/Report: [facility] , Triglycerides 67 <=150 mg/dL Cholesterol 205 <=200 mg/dL HDL Cholesterol 66 40-60 mg/dL > or =60 mg/dl - LOW CARDIOVASCULAR RISK <40 mg/dl - HIGH CARDIOVASCULAR RISK LDL Cholesterol Calculated 126.0 130-159 mg/dl BORDERLINE HIGH 160-189 mg/dl HIGH <100 mg/dl OPTIMAL 100-129 mg/dl NEAR OR ABOVE OPTIMAL >190 mg/dl VERY HIGH VLDL CHOLESTEROL 13.4 Chol HDL Ratio 3.1 3.3 - 4.4 LOW RISK >11.0 HIGH RISK 4.4 - 7.1 AVERAGE RISK 7.1 - 11.0 MODERATE RISK Performing Lab: see note ML - [facility] LB PROF 14(COMP METB) Reviewed date:01/25/2025 12:39:10 PM Interpretation: Performing Lab: Notes/Report: [facility] , Sodium 138 136-145 mmol/L Potassium 4.4 3.5-5.1 mmol/L Chloride 105 98-107 mmol/L Carbon Dioxide 28.0 21.0-32.0 mmol/L Anion Gap 9.4 Glucose 93 74-106 mg/dL Blood Urea Nitrogen 17.0 7.0-18.0 mg/dL Creatinine 0.79 0.55-1.02 mg/dL Estimated GFR ( Ciarra >60 >=60 mL/min/1.73m 2 Estimated GFR (Non- Bere >60 >=60 mL/min/1.73m 2 BUN Creatinine Ratio 21.5 Calcium 9.1 8.5-10.1 mg/dL Bilirubin Total 0.5 0.2-1.0 mg/dL Aspartate Amino Transferase 18 15-37 U/L Alanine Aminotransferase 35 14-59 U/L Alkaline Phosphatase 79 46-116 U/L Total Protein 6.9 6.4-8.2 g/dL Albumin Level 3.5 3.4-5.0 g/dL Globulin 3.4 Albumin Globulin Ratio 1.0 Performing Lab: see note ML - [facility] CBC AUTO DIFF Reviewed date:01/14/2025 02:16:05 PM Interpretation: Performing Lab: Notes/Report: [facility] , White Blood Count 5.8 4.0-11.0 10 3/uL Red Blood Count 5.02 4.20-5.40 10 6/uL Hemoglobin 15.3 12.0-16.0 g/dL Hematocrit 44.1 36.0-48.0 % Mean Corpuscular Volume 87.8 81.0-99.0 fL Mean Corpuscular Hemoglobin 30.5 26.7-34.0 pg Mean Corpuscular HGB Conc 34.7 29.9-35.2 g/dL Red Cell Distribution Width 12.3 11.0-15.0 % Platelet Count 178 150-450 10 3/uL Mean Platelet Volume 9.4 9.5-13.5 fL Performing Lab: see note ML - [facility] LB PROF CHEM 8 (BAS METB) Reviewed date:01/14/2025 02:16:05 PM Interpretation: Performing Lab: Notes/Report: [facility] , Sodium 142 136-145 mmol/L Potassium 3.6 3.5-5.1 mmol/L Chloride 105 98-107 mmol/L Carbon Dioxide 23.9 21.0-32.0 mmol/L Anion Gap 16.7 Glucose 165 74-106 mg/dL Blood Urea Nitrogen 27.0 7.0-18.0 mg/dL Creatinine 0.86 0.55-1.02 mg/dL Estimated GFR ( Ciarra >60 >=60 mL/min/1.73m 2 Estimated GFR (Non- Bere >60 >=60 mL/min/1.73m 2 BUN Creatinine Ratio 31.4 Calcium 9.6 8.5-10.1 mg/dL Performing Lab: see note ML - [facility] LB UA RANDOM W or MICROSCOPIC Reviewed date:01/14/2025 02:16:05 PM Interpretation: Performing Lab: Notes/Report: [facility] , Color Urine LT. YELLOW YELLOW Clarity Urine CLEAR CLEAR Specific [place] Urine 1.015 1.005-1.025 pH Urine 7.0 5.0-9.0 Protein Urine NEGATIVE NEG/TRACE mg/dL Glucose Urine UA NEGATIVE NEGATIVE mg/dL Bilirubin Urine NEGATIVE NEGATIVE Ketones Urine TRACE NEGATIVE mg/dL Blood Urine NEGATIVE NEGATIVE Nitrite Urine NEGATIVE NEGATIVE Urobilinogen Urine 0.2 0.2-1.0 EU/dL Leukocyte Esterase Urine NEGATIVE NEGATIVE WBC Urine 0-2 NONE SEEN #/HPF RBC Urine 0-2 0-2 #/HPF Bacteria Urine NONE SEEN NONE SEEN #/HPF Mucus Urine NONE SEEN NONE SEEN Squamous Epithelial Cell Urine NONE SEEN NONE/RARE #/LPF Crystals Seen? None Seen None Seen #/HPF Cast Seen? NONE SEEN NONE SEEN #/LPF Performing Lab: see note - [facility] LB Manual Differential Reviewed date:01/14/2025 02:16:05 PM Interpretation: Performing Lab: Notes/Report: [facility] , Segmented Neutrophils % Manual 83.0 43.0-75.0 Band Neutrophils % 7.0 0-5 % Lymphocytes Percent Manual 5.0 20.5-60.0 % Monocytes Percent Manual 1.0 1.7-12.0 % Eosinophils Percent Manual 4.0 0.9-7.0 % Basophils Percent Manual 0.0 0.2-2.0 % Segmented Neut Absolute Manual 4.81 1.4-6.5 10 3/uL Band Neutrophils Absolute 0.4 0.0-0.3 10 3/uL Lymphocytes Absolute Manual 0.29 1.20-3.80 10 3/uL Monocytes Absolute Manual 0.05 0.30-0.80 10 3/ uL Eosinophils Absolute Manual 0.23 0.00-0.70 10 3/uL Basophils Abs Manual 0.00 0.00-0.10 10 3/uL Performing Lab: see note - [facility] LB ECG 12 lead Reviewed date:01/18/2025 07:22:34 PM Interpretation: Performing Lab: Notes/Report: Source Facility: [place] [address] Electrocardiograph Report Signed Patient: CONY MITCHELL MR#: [id number] : 1960 Acct:[id number] Age/Sex: 64 / F ADM Date: 01/14/25 Loc: ER Attending Dr: Ordering Physician: Christ Elliott M.D. Date of Service: 01/14/25 Procedure(s): ECG 12 lead Accession Number(s): [id number] cc: [facility] Test Date: 2025-01-14 Pat Name: CONY MITCHELL Department: Room: - Gender: Female Recordak Operator: : 1960 Requested By: PADDY HER Order Number: [id number] Reading MD: PADDY HER Measurements Intervals Portal Rate: 81 P: 69 VT: 160 QRS: 65 QRSD: 82 T: 72 QT: 402 QTc: 439 Interpretive Statements 1100 Sinus rhythm 9110 normal ECG No previous ECG available for comparison Electronically Signed On 01-18-2025 7:05:55 EST by PADDY HER Dictated By: Paddy Her M.D. Signed By: 01/18/25705 DD/ 8 TD/TT: Rn Mobile: FREE T3 Reviewed date:01/25/2025 12:39:10 PM Interpretation: Performing Lab: Notes/Report: [facility] , Free T3 2.33 2.18-3.98 pg/mL Performing Lab: see note ML - [facility] LB T4 Reviewed date:01/25/2025 12:39:10 PM Interpretation: Performing Lab: Notes/Report: [facility] , T4 Thyroxine 7.30 4.80-13.90 ug/dL Performing Lab: see note ML - [facility] LB TSH Reviewed date:01/25/2025 12:39:10 PM Interpretation: Performing Lab: Notes/Report: [facility] , Thyroid Stimulating Hormone 0.680 0.358-3.740 u IU/mL Performing Lab: see note ML - [facility] LB VITAMIN D 25 [place] Reviewed date:01/25/2025 08:10:59 PM Interpretation: Performing Lab: Notes/Report: [facility] , Vitamin D 31.1 20-<30 ng/mL Vit D insufficient >100 ng/mL Potential Toxicity 30-100 ng/mL Vit D sufficient <20 ng/mL Vit D deficient Performing Lab: see note ML - [facility] LB IGP,Aptima HPV,Age Gdln Reviewed date:03/09/2025 08:17:13 PM Interpretation: Performing Lab: Notes/Report: SPATULA-ALONE VAGINA [facility] , Age Gdln ACOG Testing Note . FLAG LEGEND: No. of containers..01 ThinPrep Vial Performed at: Lennie Ballesteros MD, <-Panic Low,>-Panic High,A-Abnormal,AA-Critical Abnormal Clinician Provided Cytology Information ------ Source.............Vagina 01 =[facility] TESTS RESULT FLAG UNITS REF RANGE LAB Age Algo ACOG Yana... 30-65 01 L-Low Normal,H-High Normal,LL-Alert Low,HH-Alert High [address] [place] [address] ------ ------ IGP, Aptima HPV, rfx 16/18,45 Note . 02 WB [facility] should not be used as the sole means of detecting cervical detection of premalignant and malignant conditions of the ------ . 02 Performed by: 02 Criteria not met, HPV Genotype not performed. occur. DIAGNOSIS: 02 Test Methodology: Note 02 Note: Note 02 NEGATIVE FOR INTRAEPITHELIAL LESION OR MALIGNANCY. ------ FLAG LEGEND: ------ the use of an image guided system. L-Low Normal,H-High Normal,LL-Alert Low,HH-Alert High cancer. Both false-positive and false-negative reports do HPV Genotype Reflex Note 02 [address] [facility] [place] [address] TESTS RESULT FLAG UNITS REF RANGE LAB Satisfactory for evaluation. No endocervical cells are present. This is Ramya Estrella Tile Classifier (ASCP) Lennie Ballesteros MD, consistent with a history of hysterectomy. <-Panic Low,>-Panic High,A-Abnormal,AA-Critical Abnormal Performed at: uterine cervix. It is not a diagnostic procedure and The Pap smear is a screening test designed to aid in the This liquid based ThinPrep(R) pap test was screened with Specimen adequacy: 02 HPV Aptima Negative Negative Road Freight Firer: Lennie Ballesteros MD, Phone: [phone] Performed at: =[facility] risk HPV types (16,18,31,33,35,39,45,51,52 ,56,58,59,66,68) Road Freight Firer: Lennie Ballesteros MD, Phone: [phone] Performed at: [facility] This nucleic acid amplification test detects fourteen high- [address] [facility] [place], [place] [id number] [address] [facility] [id number] without differentiation. Performing Lab: see note [facility] LB XR ankle RT min 3V Reviewed date:04/10/2025 02:08:54 PM Interpretation: Performing Lab: Notes/Report: Source Facility: [facility] [place] [address] [place] [address] XRay Report Signed Patient: CONY MITCHELL MR#: [id number] : 1960 Acct:[id number] Age/Sex: 64 / F ADM Date: 04/10/25 Loc: RAD Attending Dr: Paddy Her M.D. Ordering Physician: Paddy Her M.D. Date of Service: 04/10/25 Procedure(s): XR ankle RT min 3V Accession Number(s): [id number] cc: Paddy Her M.D. [place] [address] Patient Name: CONY MITCHELL MRN: [id number] date: 1960 Sex: F Assigned Patient Location: [facility] Current Patient Location: [facility] Accession/Order Number: [id number] Exam Date: 04/10/2025 11:22 Report Date: 04/10/2025 11:24 At the request of: PADDY HER MD Procedure: XR ankle RT min 3V RIGHT ANKLE - 3 views CLINICAL DATA: Patient rolled right ankle last night and has lateral pain. COMPARISON: None AP, lateral and oblique views were obtained. There is osteopenia. There is no evidence of fracture or dislocation. The talar dome is intact. Tiny calcaneal spurs are visualized. There are no significant soft tissue abnormalities. XR/XR ankle RT min 3V IMPRESSION: NO ACUTE BONY INJURY. Impression dictated by: Magdalene Krause M.D. 04/10/2025 11:24 AM Dictation Location: [place] [address] Electronically authenticated by: [id number] Y Date: 04/10/2025 11:24 Dictated By: Magdalene Krause M.D. Signed By: 04/10/25 1127 DD/ 1124 TD/TT: Rn Mobile: ROSHNI tomosynthesis screening B I Reviewed date:07/24/2025 04:02:45 PM Interpretation: Performing Lab: Notes/Report: Source Facility: [place] [address] [place] [address] Mammography Report Signed Patient: CONY MITCHELL MR#: [id number] : 1960 Acct:[id number] Age/Sex: 64 / F ADM Date: 07/24/25 Loc: MAMMO Attending Dr: Paddy Her M.D. Ordering Physician: Paddy Her M.D. Results: Date of Service: 07/24/25 Follow Up: Procedure(s): MM tomosynthesis screening BI Accession Number(s): [id number] cc: Paddy Her M.D. Patient Name: CONY MITCHELL MR#: [id number] : 1960 Exam Date: 07/24/2025 Ordering Doctor: DR PADDY HER . RADIOLOGY REPORT PROCEDURE: MM TOMOSYNTHESIS SCREENING BI COMPARISON: MM TOMOSYNTHESIS SCREENING BI, 07/27/2024. MM TOMOSYNTHESIS SCREENING BI, 06/17/2023. MG MAMM SCREEN 3D ZARI CAD, 06/16/2022. MG MAMM ZARI SCRN W CAD DIG, 06/22/2014. INDICATIONS: Screening Calculator Name NCI Breast Cancer Risk Assessment Tool 5 Year Breast Cancer Risk 1.70% Lifetime Breast Cancer Risk 7.10% Personal Breast Cancer No Personal Ovarian Cancer No Treatments Excision Family Cancers None LOCATION: [facility] BREAST COMPOSITION: There are scattered areas of fibroglandular density. FINDINGS: DIAGNOSTIC CATEGORY 1--NEGATIVE. RIGHT BREAST: No significant suspicious finding. LEFT BREAST: No significant suspicious finding. RECOMMENDATIONS: ROUTINE MAMMOGRAM AND CLINICAL EVALUATION IN 12 MONTHS. Dictated by: Leo Cuenca DO on 07/24/2025 at 11:32 Approved by: Leo Cuenca DO on 07/24/2025 at 11:33 Dictated By: Leo Cuenca M.D. Signed By: 07/24/25 1134 DD/ 1133 TD/TT: Rn Mobile: RENETTA by IFA Reviewed date:09/12/2025 01:51:48 PM Interpretation: Performing Lab: Notes/Report: [facility] , Antinuclear Antibodies, IFA Negative . Borderline 1:80 [address] [place], [place] [id number] Road Freight Firer: Franck Mireles PhD, Phone: [phone] For more information about Hep-2 cell patterns use Patterns (ICAP). ANApatterns.org, the official website for the Performed at: - [facility] Alpha Positive >1:80 ICAP nomenclature: AC-0 International Consensus on Antinuclear Antibody (RENETTA) Negative <1:80 Performing Lab: see note LC - [facility] LB CRP Reviewed date:09/07/2025 12:46:36 PM Interpretation: Performing Lab: Notes/Report: [facility] , C Reactive Protein <0.50 <=0.50 mg/dL Performing Lab: see note - [facility] LB RHEUMATOID FACTOR Reviewed date:09/12/2025 01:51:48 PM Interpretation: Performing Lab: Notes/Report: [facility] , Rheumatoid Factor (RF) 16.5 <14.0 IU/mL Performing Lab: see note [facility] LB URIC ACID SERUM Reviewed date:09/07/2025 12:46:37 PM Interpretation: Performing Lab: Notes/Report: [facility] , Uric Acid 3.0 2.6-6.0 mg/dL Performing Lab: see note - [facility] LB Erythrocyte Sedimentation Ra te Reviewed date:09/07/2025 12:46:37 PM Interpretation: Performing Lab: Notes/Report: [facility] , Erythrocyte Sedimentation Rate 54 <=30 mm/hr Performing Lab: see note - [facility] Antistreptolysin O Ab Reviewed date:09/12/2025 01:51:48 PM Interpretation: Performing Lab: Notes/Report: [facility] , Antistreptolysin O Ab 54.8 0.0-200.0 IU/mL Performed at: [facility] [address] [id number] [address] Freight Firer: Franck Mireles PhD, Phone: [phone] Performing Lab: see note [facility] LB Occult Blood* Reviewed date:01/25/2025 08:10:59 PM Interpretation: Performing Lab: Notes/Report: [facility] , Occult Blood Positive Performing Lab: see note - [facility] LB Reason For Referral Diagnosis 1 Positive occult stoo l blood test (R19.5) Referral Organization [facility] Referring Provider First Name René Referring Provider Last Name scott [facility]erring Provider [facility] Referred Provider Nahum Castañeda Referred Provider Specialty General Surg cayla Referral Priority Routine Diagnosis 1 Joint pain (M25.50) Referral Organization [facility] Referring Provider First Name René Referring Provider Last Name Chase Referring Provider [facility] Referred Provider eTd Barrera Referred Provider Specialty Rheumatology Referral Priority Routine Medications Medication SIG (Take, Route, Frequency, Duration) Notes Start Date End Date Status Albuterol Sulfate (2.5 MG/3ML) 0.083% 3 mL as needed Inhalation every 6 hrs 08/05/2024 Active Multivitamin - 1 tablet Orally Once a day Active Montelukast Sodium 10 MG TAKE 1 TABLET B Y MOUTH EVERY DAY FOR 30 DAYS; Duration: 90 days Active Ventolin HFA 108 (90 Base) MCG/ACT 2 puff as needed Inhalation every 4 hrs; Duration: 30 PRN 11/11/2023 Active Social History Tobacco Use: Social History Observation Description Date Details (start date - stop date) Never Smoker NA - NA Tobacco Use/Smoking Question Answer Notes Patient is a nonsmoker Alcohol Screen (Audit-C) Question Answer Notes Did you have a drink containing alcohol in the p ast year? No Points 0 Interpretation Negative AUDIT-C (Standard) Question Answer Notes Did you have a drink containing alcohol in the p ast year? No Points 0 Interpretation Negative Problems Problem Type SNOMED Code ICD Code Onset Dates Problem Status W/U Status Risk Notes Problem Urethral stricture (94215109) Urethral stricture, unspecified (N35.9) Active confirmed Problem Urinary tract infectious disease (disorder) (55959663) Urinary tract infection, site not specified (N39.0) Active confirmed Problem Urinary incontinence (011149508) Other specified urinary incontinence (N39.498) Active confirmed Problem Palpitations (42717490) Palpitations (R00.2) Active confirmed Problem Right lower quadrant pain (569301234) Right lower quadrant pain (R10.31) Active confirmed Problem Frequency of micturition (682132425) Frequency of micturition (R35.0) Active confirmed Problem Fatigue (52191781) Fatigue (R53.83) Active conf irmed Problem Pneumonia (153721013) Pneumonia (J18.9) Active confirmed Problem Dyspnea (194424750) Dyspnea (R06.00) Active con firmed Problem Vertigo (584348335) Vertigo (R42) Active confir med Problem Hip pain (38210145) Hip pain (M25.559) Active c onfirmed Problem Osteoarthritis of knee (489915536) Knee osteoarthritis (M17.9) Active confirmed Problem Allergic rhinitis (90160063) Allergic rhinitis (J30.9) Active confirmed Problem Osteoporosis (31197787) Osteoporosis (M81.0) Active confirmed Problem Chronic diarrhea (949486225) Chronic diarrhea (K52.9) Active confirmed Problem Well adult (137214506) Well adult (Z00.00) Active confirmed Problem Alopecia (61680137) Hair loss (L65.9) Active co nfirmed Problem Seasonal allergic rhinitis (011710962) Seasonal allergic rhinitis (J30.2) Active confirmed Problem Meniere disease (98861114) Meniere disease (H81.09) Active confirmed Problem 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) Plantar fasciitis, right (M72.2) Active confirmed Problem Diverticulosis of sigmoid colon (266585953) Diverticulosis of sigmoid colon (K57.30) Active confirmed Problem Calcaneal spur (55535547) Calcaneal spur, left (M77.32) Active confirmed Problem Hypercholesterolemia (72553313) Hypercholesterolemia (E78.00) Active confirmed Problem Familial hypercholesterolemia (328729423) Familial hypercholesterolemia (E78.01) Active confirmed Problem 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 Problem Disease caused by Severe acute respiratory syndrome coronavirus 2 (disorder) (869324994) COVID-19 virus infection (U07.1) Active confirmed Vital Signs Temperature 98.8 degrees Fahrenheit 11/16/2024 Blood pressure diastolic 80 mm Hg 09/06/2025 Height 65 in 09/06/2025 Blood pressure systolic 108 mm Hg 09/06/2025 Weight 148.2 lbs 09/06/2025 BMI 24.66 kg/m2 09/06/2025 Encounters Encounter Location Date Provider Diagnosis [address] [address] 11/16/2024 René Hoy Cough R05.9 and Acut e bronchitis, unspecified organism J20.9 [place] [address] [place] [address] 04/10/2025 René Hoy Foot sprain, right, initial encounter S93.601A [address] [address] 09/06/2025 René Hoy Back pain M54.9 ; [place] I (urinary tract infection), uncomplicated N39.0 ; Dysuria R30.0 and Hematuria R31.9 [facility] [address] [facility] [facility] [place] [address] 01/23/2025 René Grossmany Diarrhea R19.7 ; Pneumonia, unspecified organism J18.9 ; Abdominal pain R10.9 and Fatigue R53.83 [facility] [address] [place] [place] [address] 01/25/2025 René Her [facility] [address] [place] [place] [address] 01/25/2025 René Her Positive occult stoo l blood test R19.5 [facility] [address] [place] [place] [address] 01/30/2025 René Her [facility] [address] [place] [place] [address] 04/10/2025 René Her [facility] [address] [facility] [place] [address] 04/25/2025 René Her [facility] [address] [facility] [place] [address] 06/20/2025 René Her Screening for breas t cancer Z12.39 [facility] [address] [place] [place] [address] 07/24/2025 René Her [facility] [address] [place] [place] [address] 09/04/2025 René Her [facility] [address] [place] [place] [address] 09/04/2025 René Her [facility] [address] [place] [place] [address] 09/07/2025 René scott [facility] [address] [place] [place] [address] 09/07/2025 René Her [facility] [address] [place] [place] [address] 09/12/2025 René Her Joint pain M25.50 [facility] [address] [place] [address] 2025 René Hoy Cough R05.9 Assessments Encounter Date Diagnosis (ICD Code) Assessment Notes Treatment Notes Treatment Clinical Notes Section Notes 11/16/2024 Cough (ICD-10 - R05.9) 04/10/2025 Foot sprain, right, initial encounter (ICD-10 - S93.601A) 09/06/2025 Back pain (ICD-10 - M54.9) 09/06/2025 UTI (urinary tract infection), uncomplicated (ICD-10 - N39.0) Drink plenty of water. Avoid drinks like coffee, alcohol and soft frinks, as these can irritate your bladder and aggravate your frequent or urgent need to urinate. Apply a warm heating pad to your abdomen to minimize bladder pressure or discomfort. You have been prescribed antibiotics for a urinary tract infection. Antibiotics may bother your stomach, so try taking them with a light meal (unless instructed otherwise by your pharmacist). It is important to take them until they are finished. You can use fpsb-pyr-viohpjc acetaminophen or ibuprofen if needed for pain. You should follow up with your Primary Care Physician or return to clinic if not improving in the next 3-5 days. 01/23/2025 Diarrhea (ICD-10 - R19.7) 01/25/2025 Positive occult stool blood test (ICD-10 - R19.5) 06/20/2025 Screening for breast cancer (ICD-10 - Z12.39) 09/12/2025 Joint pain (ICD-10 - M25.50) 2025 Cough (ICD-10 - R05.9) 01/23/2025 Pneumonia, unspecified organism (ICD-10 - J18.9) 09/06/2025 Dysuria (ICD-10 - R30.0) 11/16/2024 Acute bronchitis, unspecified organism (ICD-10 - J20.9) Rest and drink more liquids, especially water. You may use a humidifier or vaporizer to help keep the drainage moist. Qtdb-yhz-tugieti Nasal Saline may help the stuffy and runny nose. Use Ibuprofen and or Tylenol as needed for fever, chills, body aches or pain. Children 5 years old should not be given gnei-mnx-sjgujqz cough and cold medications such as guaifenesin and dextromethorphan. If you're over age 5, you may try zjhx-oeb-gpnwrcx cold medications such as guaifenesin and dextromethorphan, or multi-symptom cold reliever such as Dayquil to help reduce the symptoms. Antibiotics have been prescribed. You should take these until completed and follow the directions. Antibiotics can sometimes cause upset stomach, and in rare cases, serious allergic reactions or serious gastrointestinal problems. If you start having severe abdominal pain, severe vomiting, or bloody diarrhea, you should be reevaluated by your physician or urgent care immediately. Follow up with your Primary Care Provider or return to clinic if symptoms do not improve within 3-5 days. If you develop severe symptoms such as shortness of breath, repeated vomiting, coughing up blood, or chest pain you should go to the emergency room or call 911 09/06/2025 Hematuria (ICD-10 - R31.9) 01/23/2025 Abdominal pain (ICD-10 - R10.9) 01/23/2025 Fatigue (ICD-10 - R53.83) Plan Of Treatment Pending Test Test Name Order Date CMP (COMPLETE METABOLIC PANEL) 4 CMP (COMPLETE METABOLIC PANEL) 4 CMP (COMPLETE METABOLIC PANEL) 3 HEMOGLOBIN A1C (GLYCO) 08/11/2024 HEMOGLOBIN A1C (GLYCO) 03/10/2024 IRON, TOTAL 03/10/2024 IRON, TOTAL 08/11/2024 LIPID PANEL (CHOL/TRIG/HDL/LDL) 08/11/20 24 CBC WITH DIFF 08/11/2024 CBC WITH DIFF 03/10/2024 VITAMIN D, 25 LEVEL (TOTAL) 03/10/2024 VITAMIN D, 25 LEVEL (TOTAL) 08/11/2024 XR Chest PA and Lateral (Routine CXR) * 03/10/2024 CT Abdomen and Pelvis w/contrast * 03/20 CT Chest w/o contrast 04/11/2024 T3 FREE, T4 FREE and TSH 07/31/2023 RHEUMATOID PANEL 09/06/2025 FECAL OCCULT BLOOD 01/23/2025 Insulin Level 08/11/2024 MAMM SCREEN BILAT SRAVANTHI 3D GLOBAL* 07/22/ 2025 CBC AUTO DIFF 07/31/2023 CULTURE SPUTUM 2025 GLYCOHEMOGLOBIN A1C 07/31/2023 LIPID PROFILE 07/31/2023 SED RATE WESTERGREN 09/06/2025 CT CHEST WO CON 12/06/2023 XR ANKLE RT MIN 3 VIEWS 04/10/2025 XR CHEST 2 V 2025 XR CHEST 2 V 12/03/2023 XR HIP RT 2 3V W PELVIS 10/21/2023 THYROID PANEL (T4/TSH/FREE T3) 4 THYROID PANEL (T4/TSH/FREE T3) 4 THYROID PANEL (T4/TSH/FREE T3) 5 Vitamin D 01/23/2025 Insurance Providers Payer Name Payer Address Payer Phone Subscriber Number Group Number Insured Name Patient Relationship to Insured Coverage Start Date Coverage End Date [employer] [address] [address] [place] [address] [id number] Casper Mitchell Spouse - patient is the spouse of the insured Medical (General) History Medical History History ICD Code Well adult Z00.00 Knee osteoarthritis M17.9 COVID-19 virus infection U07.1 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
--- NOTE | 2025-09-14 14:10 | XR_ITS ---
The [address] [address] Patient Name: JOCELYNE MATOS MRN: [id number] date: 1960 Sex: F Assigned Patient Location: [facility] Current Patient Location: [facility] Accession/Order Number: [id number] Exam Date: 09/14/2025 14:15 Report Date: 09/14/2025 14:49 At the request of: PADDY HER MD Procedure: XR chest 2V Chest 2 views CLINICAL HISTORY: Cough COMPARISON: None FINDINGS: Heart normal in size. Lungs are hyperinflated but clear. No free air. XR/XR chest 2V IMPRESSION: NO ACUTE CARDIOPULMONARY ABNORMALITY. Impression dictated by: Leo Cuenca Jr., D.O. 09/14/2025 2:49 PM Dictation Location: [place] [address] Electronically authenticated by: [id number] Y Date: 09/14/2025 14:49
== END 2025-09-14 14:05 | disposition home or self-care (01) ==
LOC: RAD 14:05
PROVIDERS: PCP Family Medicine; Visit Provider Family Medicine
DX: R05.9 Cough, unspecified (principal)
CPT/HCPCS: 71046